=== PATIENT | female | born 1985 | race Caucasian/White ===

== ENCOUNTER → 2016-11-03 | Outpatient (CLI) | payer MEDICAID, OTHER ==
[~2016-11-03] MED LIST: /ESOM40CA; ALBUTEROL INHALATION; ANTIBIOTIC; BIRTH CONTROL PILL; CETI10TA; FERR325T; FLINCHW5 PO; IBUP-1114 PO; MYLI40DR PO; No Historical Meds; OXYC1TAB23 PO; PERC5TAB8; ROBITUSSIN PO; SIMV20TA2; SUDAFED30 PO; TYLENOL325 PO; ZITHROM500 PO
[2016-11-03 10:09] LABS: BASO % 0.6 % (0.0-1.0); EOS # 0.1 K/mm3 (0.0-0.50); EOS % 1.9 % (0.0-3.0); LARGE UNSTAINED CELL # 0.1 K/mm3 (0.0-0.4); LARGE UNSTAINED CELL % 1.5 % (0.0-4.0); LYMPH # 1.9 K/mm3 (1.5-4.5); LYMPH % 25.8 % (24.0-44.0); MEAN CORPUSCULAR HEMOGLOBIN 27.6 pg (27.0-33.0); MEAN CORPUSCULAR HGB CONC 32.2 g/dl (32.0-36.5); MEAN CORPUSCULAR VOLUME 85.7 fl (80.0-96.0); MONO # 0.3 K/mm3 (0.0-0.8); MONO % 4.6 % (0.0-5.0); NEUTROPHILS # 4.5 K/mm3 (1.8-7.7); NEUTROPHILS % 65.5 % (36.0-66.0); PLATELET COUNT, AUTOMATED 326 k/mm3 (150-450); RED CELL DISTRIBUTION WIDTH 13.3 % (11.5-14.5); WHITE BLOOD COUNT 6.8 K/mm3 (4.0-10.0)
[2016-11-03 10:23] LABS: ALBUMIN 3.7 GM/DL (3.2-5.2); ALBUMIN/GLOBULIN RATIO 1.12 (1.00-1.93); ALKALINE PHOSPHATASE 108 U/L (45-117); ALT/SGPT 16 U/L (12-78); ANION GAP 8 MEQ/L (8-16); AST/SGOT 11 U/L (15-37); BILIRUBIN,TOTAL 0.6 MG/DL (0.2-1.0); BLOOD UREA NITROGEN 7 MG/DL (7-18); CALCIUM LEVEL 8.1 MG/DL (8.5-10.1); CARBON DIOXIDE LEVEL 26 MEQ/L (21-32); CHLORIDE LEVEL 106 MEQ/L (98-107); CHOLESTEROL LEVEL 186 MG/DL (<200); CREATININE FOR GFR 0.54 MG/DL (0.55-1.02); FERRITIN 10 NG/ML (8-252); GLOMERULAR FILTRATION RATE > 60.0 (>60); GLUCOSE, FASTING 77 MG/DL (70-105); PERCENT SATURATION 15.2 % (13.2-37.4); POTASSIUM SERUM 3.6 MEQ/L (3.5-5.1); SODIUM LEVEL 140 MEQ/L (136-145); TOTAL IRON BINDING CAPACITY 381 UG/DL (250-450); TRIGLYCERIDES LEVEL 65 MG/DL (<150)
== END ==
LOC: M LAB 09:16
PROVIDERS: ATTEND Nurse Practitioner Family
DX: D64.9 Anemia, unspecified (principal); Z13.29 Encounter for screening for other suspected endocrine disorder; R20.2 Paresthesia of skin; E04.8 Other specified nontoxic goiter; Z13.220 Encounter for screening for lipoid disorders

== ENCOUNTER → 2016-11-06 | Outpatient (CLI) | payer MEDICAID, OTHER ==
--- NOTE | 2016-11-06 13:45 | REP ---
CERVICAL SPINE, THREE VIEWS: HISTORY: Paresthesias. COMPARISON: 09/12/2013. There is no acute fracture or subluxation. The intervertebral discs are normal in height. IMPRESSION: There is no acute fracture or subluxation. Signed by Roscoe Oliver MD 11/06/2016 01:52 P
== END ==
LOC: M RAD 13:14
PROVIDERS: ATTEND Nurse Practitioner Family
DX: R20.2 Paresthesia of skin (principal)

== ENCOUNTER → 2016-12-14 | Outpatient (REF) | payer MEDICAID ==
[2016-12-14 13:55] LABS: THYROID PEROXIDASE ANTIBODY > 1300.0 U/ML (<60.0)
[2016-12-14 14:00] LABS: FREE T4 0.85 NG/DL (0.76-1.46)
== END ==
LOC: M LABDRAW1 13:02
PROVIDERS: ATTEND Nurse Practitioner Family
DX: R79.89 Other specified abnormal findings of blood chemistry (principal)

== ENCOUNTER → 2017-03-03 | Outpatient (REF) | payer OTHER ==
[2017-03-03 21:58] LABS: MICROSCOPIC INDICATED? MAN YES (NO)
[2017-03-03 22:09] LABS: BACTERIA, URINE SMALL AMOUNT; HYALINE CAST, URINE NONE SEEN /lpf (0-1); SQUAMOUS EPITHELIAL CELL URINE MOD AMOUNT /hpf (SMALL AMT)
[2017-03-03 22:10] LABS: MICROSCOPIC EXAM PERFORMED; TRANSITIONAL EPI CELLS, URINE SMALL AMOUNT /hpf
== END ==
LOC: M LAB REF 09:30
PROVIDERS: ATTEND Physician Assistant
DX: R30.0 Dysuria (principal)

== ENCOUNTER → 2017-09-01 | Outpatient (REF) | payer OTHER ==
[2017-09-01 21:55] LABS: APPEARANCE, URINE HAZY (CLEAR); BACTERIA, URINE AUTO NEGATIVE (NEGATIVE); BILIRUBIN, URINE AUTO NEGATIVE (NEGATIVE); BLOOD, URINE BLOOD NEGATIVE (NEGATIVE); COLOR, URINE YELLOW (YELLOW); GLUCOSE, URINE (UA) AUTO NEGATIVE (NEGATIVE); KETONE, URINE AUTO NEGATIVE (NEGATIVE); LEUKOCYTE ESTERASE, URINE AUTO NEGATIVE (NEGATIVE); MUCUS, URINE SMALL (NEGATIVE); NITRITE, URINE AUTO NEGATIVE (NEGATIVE); PROTEIN, URINE AUTO NEGATIVE (NEGATIVE); RBC, URINE AUTO 0 /HPF (0-3); SPECIFIC GRAVITY URINE AUTO 1.019 (1.002-1.035); SQUAMOUS EPITHELIAL CELL UR AU 4 /HPF (0-6); UROBILINOGEN, URINE AUTO 0.2 mg/dL (0.0-2.0); WBC, URINE AUTO 0 /HPF (0-3)
[2017-09-01 23:31] LABS: CHLAMYDIA DNA AMPLIFICATION NEGATIVE (NEGATIVE); GC DNA AMPLIFICATION NEGATIVE (NEGATIVE)
== END ==
LOC: M LAB REF 09:19
DX: N39.0 Urinary tract infection, site not specified (principal)

== ENCOUNTER → 2017-09-08 | Outpatient (CLI) | payer OTHER ==
[2017-09-08 13:52] LABS: BASO # 0.1 10^3/uL (0.0-0.2); BASO % 0.7 % (0.0-1.0); EOS # 0.2 10^3/uL (0.0-0.50); EOS % 2.2 % (0.0-3.0); HEMATOCRIT 34.9 % (36.0-47.0); HEMOGLOBIN 10.6 g/dl (12.0-16.0); IMMATURE GRANULOCYTE % 0.4 % (0-3.0); LYMPH # 1.9 10^3/uL (1.5-4.5); MEAN CORPUSCULAR HEMOGLOBIN 24.2 pg (27.0-33.0); MEAN CORPUSCULAR HGB CONC 30.4 g/dl (32.0-36.5); MEAN CORPUSCULAR VOLUME 79.7 fl (80.0-96.0); MONO # 0.5 10^3/uL (0.0-0.8); MONO % 7.3 % (0.0-5.0); NEUTROPHILS # 4.3 10^3/uL (1.8-7.7); NEUTROPHILS % 62.4 % (36.0-66.0); PLATELET COUNT, AUTOMATED 380 10^3/uL (150-450); RED BLOOD COUNT 4.38 10^6/uL (4.00-5.40); RED CELL DISTRIBUTION WIDTH 15.4 % (11.5-14.5); WHITE BLOOD COUNT 6.8 10^3/uL (4.0-10.0)
[2017-09-08 13:55] LABS: CONTROL LINE HCG INT CTR LINE PRESENT; HCG, SERUM QUALITATIVE NEGATIVE (NEGATIVE)
[2017-09-08 15:50] LABS: CHLAMYDIA DNA AMPLIFICATION NEGATIVE (NEGATIVE); GC DNA AMPLIFICATION NEGATIVE (NEGATIVE)
== END ==
LOC: M SMT 09:29
DX: R10.2 Pelvic and perineal pain (principal)
CPT/HCPCS: 84703

== ENCOUNTER → 2017-09-09 | Outpatient (CLI) | payer OTHER | LOC: M RAD 10:28 | DX: R10.2 Pelvic and perineal pain (principal) | CPT/HCPCS: 76856 ==

== ENCOUNTER → 2018-07-15 | Outpatient (REF) | payer OTHER | LOC: M LAB REF 12:45 | PROVIDERS: ATTEND Physician Assistant Medical | DX: J11.1 Influenza due to unidentified influenza virus with other respiratory manifestations (principal) ==

== ENCOUNTER 2018-12-24 19:33 | Emergency (ER) | payer OTHER ==
[~2018-12-24] VITALS: Ht 160 cm; Wt 69.8 kg
[~2018-12-24 19:33] MED LIST changes: -/ESOM40CA; +NEXI1CAP3
[2018-12-24] MEDS ORDERED: ACETAMINOPHEN TAB 650MG DOSE (2X325MG) PO ONE (20:15)
--- NOTE | 2018-12-24 21:37 | REPVR ---
EXAM: US Duplex Left Lower Extremity Veins, Limited EXAM DATE/TIME: 12/24/2018 8:24 PM CLINICAL HISTORY: 33 years old, female; Pain; Leg, lower; Left; Additional info: Calf pain, positive homans TECHNIQUE: Imaging protocol: Real-time Duplex ultrasound of the Left Lower Extremity with 2-D cohoa scale, color Doppler flow and spectral waveform analysis. Limited exam focused on the left lower extremity veins. COMPARISON: No relevant prior studies available. FINDINGS: Left deep veins: Unremarkable. The common femoral, femoral and popliteal veins are patent without thrombus. Normal compressibility, augmentation response and Doppler waveforms. Left superficial veins: Unremarkable. Saphenofemoral junction is patent without thrombus. Soft tissues: Unremarkable. IMPRESSION: No sonographic evidence of deep vein thrombosis. Electronically signed by: Barber Contreras On 12/24/2018 21:36:49 PM
[2018-12-24 21:56] VITALS: BP 121/64
--- NOTE | 2018-12-25 15:02 | REP ---
LEFT ANKLE, FOUR VIEWS: There is no evidence of an acute fracture, dislocation or intrinsic bone disease. IMPRESSION: No fracture or dislocation. Electronically Signed by Shahab Fraser MD 12/25/2018 04:40 P
--- NOTE | 2018-12-25 15:03 | REP ---
LEFT LOWER LEG, AP AND LATERAL: There is no evidence of an acute fracture, dislocation or intrinsic bone disease. IMPRESSION: No fracture or dislocation. Electronically Signed by Shahab Fraser MD 12/25/2018 04:41 P
--- NOTE | 2018-12-26 07:31 | REP ---
LEFT FOOT, FOUR VIEWS: There is no evidence of an acute fracture, dislocation or intrinsic bone disease. IMPRESSION: No fracture or dislocation. Electronically Signed by Shahab Fraser MD 12/26/2018 08:31 A
== END 2018-12-24 22:18 | disposition home or self-care (01) ==
LOC: M ED 19:33
DX: S93.492A Sprain of other ligament of left ankle, initial encounter (principal); X50.9XXA Other and unspecified overexertion or strenuous movements or postures, initial encounter; Y92.018 Other place in single-family (private) house as the place of occurrence of the external cause; F17.210 Nicotine dependence, cigarettes, uncomplicated

== ENCOUNTER → 2019-08-04 | Outpatient (REF) | payer OTHER ==
[2019-08-04 18:46] LABS: INFLUENZA A AMPLIFICATION NEGATIVE (NEGATIVE); INFLUENZA B AMPLIFICATION NEGATIVE (NEGATIVE)
== END ==
LOC: M LAB REF 10:11
PROVIDERS: ATTEND Physician Assistant
DX: R50.9 Fever, unspecified (principal)

== ENCOUNTER → 2019-10-03 | Outpatient (CLI) | payer OTHER ==
--- NOTE | 2019-10-03 11:47 | REP ---
Clinical: Asthma with exacerbation . Comparison: 06/23/2015 . Technique: PA and lateral. Findings: The mediastinum and cardiac silhouette are normal. The lung lawson are clear and without acute consolidation, effusion, or pneumothorax. The skeletal structures are intact and normal. Impression: 1. No acute cardiopulmonary process. Electronically Signed by Dave Hicks MD 10/03/2019 11:38 A
== END ==
LOC: M WUC 11:25
PROVIDERS: ATTEND Nurse Practitioner Family
DX: J45.21 Mild intermittent asthma with (acute) exacerbation (principal)

== ENCOUNTER → 2019-10-16 | Outpatient (CLI) | payer OTHER ==
--- NOTE | 2019-10-16 18:22 | REP ---
HISTORY: Pain after trauma. There is a fracture of the diaphysis of the proximal phalanx of the fifth digit with some lateral angulation. There is also associated soft tissue swelling. IMPRESSION: Fracture as described above. Lateral angulation. Electronically Signed by Sukumar Ceballos DO 10/17/2019 07:37 A
== END ==
LOC: M WUC 16:29
PROVIDERS: ATTEND Physician Assistant
DX: S92.514A Nondisplaced fracture of proximal phalanx of right lesser toe(s), initial encounter for closed fracture (principal); X58.XXXA Exposure to other specified factors, initial encounter; Y92.89 Other specified places as the place of occurrence of the external cause

== ENCOUNTER → 2019-11-10 | Outpatient (REF) | payer OTHER ==
[2019-11-10 20:57] LABS: CHLAMYDIA DNA AMPLIFICATION NEGATIVE (NEGATIVE); GC DNA AMPLIFICATION NEGATIVE (NEGATIVE)
== END ==
LOC: M SFHCWAGY 16:28
PROVIDERS: ATTEND Nurse Practitioner Women's Health
DX: Z11.3 Encounter for screening for infections with a predominantly sexual mode of transmission (principal)

== ENCOUNTER → 2019-12-11 | Outpatient (REF) | payer OTHER | LOC: M SFHCWAGY 08:10 | PROVIDERS: ATTEND Specialist | DX: Z01.419 Encounter for gynecological examination (general) (routine) without abnormal findings (principal) ==

== ENCOUNTER → 2019-12-29 | Outpatient (REF) | payer OTHER ==
[~2019-12-29] MED LIST changes: +ALBU83IN INH; +ARNU1INH INH; +BACT800T5 PO; +CEFD300C PO; +GABA-845 PO; +NEUR300C PO; +VALA500T5 PO; +VALT1TAB PO; +ZYRTTAB8 PO
== END ==
LOC: M LAB REF 11:58
PROVIDERS: ATTEND Nurse Practitioner Family
DX: J02.9 Acute pharyngitis, unspecified (principal); R50.9 Fever, unspecified
CPT/HCPCS: 87070; U0003

== ENCOUNTER → 2020-01-19 | Outpatient (CLI) | payer OTHER ==
[2020-01-19 11:31] LABS: BASO # 0.1 10^3/uL (0.0-0.2); BASO % 0.8 % (0.0-1.0); EOS # 0.2 10^3/uL (0.0-0.5); EOS % 2.6 % (0.0-3.0); HEMATOCRIT 33.8 % (36.0-47.0); HEMOGLOBIN 9.4 g/dl (12.0-15.5); LYMPH # 1.7 10^3/uL (1.5-5.0); LYMPH % 28.6 % (24.0-44.0); MEAN CORPUSCULAR HEMOGLOBIN 20.7 pg (27.0-33.0); MEAN CORPUSCULAR HGB CONC 27.8 g/dl (32.0-36.5); MEAN CORPUSCULAR VOLUME 74.4 fl (80.0-96.0); MONO # 0.6 10^3/uL (0.0-0.8); MONO % 9.9 % (0.0-5.0); NEUTROPHILS # 3.5 10^3/uL (1.5-8.5); NEUTROPHILS % 57.8 % (36.0-66.0); PLATELET COUNT, AUTOMATED 368 10^3/uL (150-450); RED BLOOD COUNT 4.54 10^6/uL (4.00-5.40); WHITE BLOOD COUNT 6.1 10^3/uL (4.0-10.0)
[2020-01-19 11:39] LABS: ALBUMIN 3.5 GM/DL (3.2-5.2); ALT/SGPT 19 U/L (12-78); BILIRUBIN,TOTAL 0.4 MG/DL (0.2-1.0); BLOOD UREA NITROGEN 9 MG/DL (7-18); CALCIUM LEVEL 8.6 MG/DL (8.5-10.1); CARBON DIOXIDE LEVEL 25 MEQ/L (21-32); CHLORIDE LEVEL 109 MEQ/L (98-107); CHOLESTEROL LEVEL 143 MG/DL (<200); CHOLESTEROL RISK RATIO 2.648 (<5); CREATININE FOR GFR 0.63 MG/DL (0.55-1.30); FREE T4 1.41 NG/DL (0.76-1.46); GLOMERULAR FILTRATION RATE > 60.0 (>60); GLUCOSE, FASTING 86 MG/DL (70-100); HDL CHOLESTEROL 54 MG/DL (>40); LDL CHOLESTEROL 67 MG/DL (<100); NON-HDL-C 89 MG/DL; POTASSIUM SERUM 3.8 MEQ/L (3.5-5.1); SODIUM LEVEL 141 MEQ/L (136-145); THYROID STIMULATING HORMONE 0.005 uIU/ML (0.358-3.740); TOTAL PROTEIN 7.1 GM/DL (6.4-8.2); TRIGLYCERIDES LEVEL 112 MG/DL (<150)
[2020-01-19 11:42] LABS: THYROGLOBULIN ANTIBODY > 500.0 U/ML (<60.0); THYROID PEROXIDASE ANTIBODY > 1300.0 U/ML (<60.0); TOTAL 25(OH) VITAMIN D 28.2 NG/ML (30.0-100.0)
[2020-01-19 11:43] LABS: TOTAL T3 163.7 NG/DL (60.0-181.0)
== END ==
LOC: M WUC 09:16
PROVIDERS: ATTEND Nurse Practitioner Family
DX: Z00.00 Encounter for general adult medical examination without abnormal findings (principal); E66.3 Overweight; J45.30 Mild persistent asthma, uncomplicated; G25.81 Restless legs syndrome; E04.0 Nontoxic diffuse goiter; Z68.26 Body mass index [BMI] 26.0-26.9, adult

== ENCOUNTER 2020-01-27 20:10 | Emergency (ER) | payer OTHER ==
[~2020-01-27] VITALS: Ht 160 cm; Wt 71.4 kg
[~2020-01-27 20:10] MED LIST changes: -ALBU83IN INH; -ARNU1INH INH; -BACT800T5 PO; -CEFD300C PO; -GABA-845 PO; -NEUR300C PO; -VALA500T5 PO; -VALT1TAB PO; -ZYRTTAB8 PO
[2020-01-27] MEDS ORDERED: ZYRTTAB8 PO (20:41)
[2020-01-27] MEDS ORDERED: ARNU1INH INH (20:41)
[2020-01-27] MEDS ORDERED: ALBU83IN INH (20:41)
[2020-01-27] MEDS ORDERED: VALA500T5 PO (20:41)
[2020-01-27] MEDS ORDERED: CEFD300C PO (20:41)
[2020-01-27] MEDS ORDERED: GABA-845 PO (20:41)
[2020-01-27] MEDS ORDERED: valACYclovir HCL 500 MG TAB PO ONE (22:45)
[2020-01-27] MEDS ORDERED: BACTRIM 160MG/800MG DS TAB PO ONE (22:45)
[2020-01-27] MEDS ORDERED: GABAPENTIN 300 MG CAP PO ONE (22:45)
[2020-01-27 23:27] LABS: HEMATOCRIT 31.7 % (36.0-47.0); HEMOGLOBIN 9.1 g/dl (12.0-15.5); MEAN CORPUSCULAR HEMOGLOBIN 20.8 pg (27.0-33.0); MEAN CORPUSCULAR HGB CONC 28.7 g/dl (32.0-36.5); MEAN CORPUSCULAR VOLUME 72.4 fl (80.0-96.0); PLATELET COUNT, AUTOMATED 432 10^3/uL (150-450); RED BLOOD COUNT 4.38 10^6/uL (4.00-5.40); WHITE BLOOD COUNT 9.8 10^3/uL (4.0-10.0)
[2020-01-27 23:59] LABS: ERYTHROCYTE SEDIMENTATION RATE 9 mm/hr (0-20)
[2020-01-28 00:05] LABS: ATYPICAL LYMPH 2 % (0-5); HYPOCHROMASIA 1+; LYMPHOCYTES 42 % (16-44); MICROCYTOSIS 1+; MONOCYTES 4 % (0-5); NEUTROPHILS 52 % (28-66); PLATELET ESTIMATE INCREASED (NORMAL)
[2020-01-28] MEDS ORDERED: NEUR300C PO (00:36)
[2020-01-28] MEDS ORDERED: BACT800T5 PO (00:36)
[2020-01-28] MEDS ORDERED: VALT1TAB PO (00:36)
[2020-01-28 00:52] VITALS: BP 120/82
== END 2020-01-28 00:54 | disposition home or self-care (01) ==
LOC: M ED 20:10
DX: B02.9 Zoster without complications (principal)

== ENCOUNTER → 2020-03-27 | Outpatient (CLI) | payer OTHER ==
[~2020-03-27] MED LIST changes: +ALBU83IN INH; +ARNU1INH INH; +BACT800T5 PO; +CEFD300C PO; +GABA-845 PO; +NEUR300C PO; +VALA500T5 PO; +VALT1TAB PO; +ZYRTTAB8 PO
--- NOTE | 2020-04-10 09:53 | REP ---
THYROID ULTRASOUND CLINICAL: Nontoxic goiter. TECHNIQUE: Real-time ochoa scale and color evaluation using linear and curved array transducer. FINDINGS: The thyroid gland is diffusely heterogeneous and enlarged. The right lobe measures 5.7 x 2.1 x 2.0 cm and includes a 5 x 4 x 5 mm simple cyst at the lower pole. The left lobe measures 5.5 x 1.8 x 1.9 cm without cyst or nodule. The isthmus measures 4 mm in width. Vascularity is relatively symmetric to the bilateral lobes. IMPRESSION: Goiter. Simple cyst in the right lobe. MTDD
== END ==
LOC: M RAD 11:06
PROVIDERS: ATTEND Physician Assistant
DX: E04.1 Nontoxic single thyroid nodule (principal); E06.5 Other chronic thyroiditis

== ENCOUNTER → 2020-04-10 | Outpatient (REF) | payer OTHER | LOC: M WUC 12:18 | PROVIDERS: ATTEND Physician Assistant | DX: N39.0 Urinary tract infection, site not specified (principal) ==

== ENCOUNTER → 2020-04-26 | Outpatient (CLI) | payer OTHER ==
[2020-04-26 09:53] LABS: BASO # 0.1 10^3/uL (0.0-0.2); BASO % 1.3 % (0.0-1.0); EOS # 0.2 10^3/uL (0.0-0.5); HEMOGLOBIN 10.6 g/dl (12.0-15.5); LYMPH # 2.2 10^3/uL (1.5-5.0); LYMPH % 35.4 % (24.0-44.0); MEAN CORPUSCULAR HEMOGLOBIN 23.7 pg (27.0-33.0); MEAN CORPUSCULAR HGB CONC 29.4 g/dl (32.0-36.5); MEAN CORPUSCULAR VOLUME 80.5 fl (80.0-96.0); MONO # 0.5 10^3/uL (0.0-0.8); MONO % 7.1 % (0.0-5.0); NEUTROPHILS # 3.3 10^3/uL (1.5-8.5); NEUTROPHILS % 52.7 % (36.0-66.0); PLATELET COUNT, AUTOMATED 379 10^3/uL (150-450); RED BLOOD COUNT 4.47 10^6/uL (4.00-5.40); WHITE BLOOD COUNT 6.3 10^3/uL (4.0-10.0)
[2020-04-26 10:25] LABS: FREE T4 0.77 NG/DL (0.76-1.46); THYROID STIMULATING HORMONE 2.97 uIU/ML (0.358-3.740); TOTAL T3 98.8 NG/DL (60.0-181.0)
== END ==
LOC: M LAB 09:07
PROVIDERS: ATTEND Physician Assistant
DX: E61.1 Iron deficiency (principal); E04.0 Nontoxic diffuse goiter; E06.5 Other chronic thyroiditis

== ENCOUNTER → 2020-05-03 | Outpatient (REF) | payer OTHER, MEDICAID | LOC: M LAB REF 16:47 | PROVIDERS: ATTEND Physician Assistant | DX: R10.33 Periumbilical pain (principal) ==

== ENCOUNTER 2020-08-21 09:22 | Emergency (ER) | payer MEDICAID, OTHER ==
[~2020-08-21] VITALS: Ht 160 cm; Wt 68.5 kg
[2020-08-21] MEDS ORDERED: NS 1,000 ML IV ONE (10:00)
[2020-08-21] MEDS ORDERED: MORPHINE 4 MG/ML 1ML VIAL/SYRINGE (J2270) IV ONE (10:00)
[2020-08-21] MEDS ORDERED: ONDANSETRON 4MG/2ML VIAL IV ONE (10:00)
[2020-08-21 10:28] LABS: BASO # 0.1 10^3/uL (0.0-0.2); BASO % 1.3 % (0.0-1.0); EOS # 0.1 10^3/uL (0.0-0.5); EOS % 1.8 % (0.0-3.0); HEMATOCRIT 35.8 % (36.0-47.0); LYMPH # 1.7 10^3/uL (1.5-5.0); MEAN CORPUSCULAR HEMOGLOBIN 24.6 pg (27.0-33.0); MEAN CORPUSCULAR HGB CONC 30.7 g/dl (32.0-36.5); MEAN CORPUSCULAR VOLUME 79.9 fl (80.0-96.0); MONO # 0.5 10^3/uL (0.0-0.8); MONO % 6.7 % (0.0-5.0); NEUTROPHILS # 5.3 10^3/uL (1.5-8.5); NEUTROPHILS % 67.7 % (36.0-66.0); PLATELET COUNT, AUTOMATED 436 10^3/uL (150-450); RED BLOOD COUNT 4.48 10^6/uL (4.00-5.40); WHITE BLOOD COUNT 7.9 10^3/uL (4.0-10.0)
[2020-08-21 10:41] LABS: ALT/SGPT 25 U/L (12-78); BILIRUBIN,DIRECT < 0.1 MG/DL (0.0-0.2); BILIRUBIN,TOTAL 0.3 MG/DL (0.2-1.0); BLOOD UREA NITROGEN 9 MG/DL (7-18); CALCIUM LEVEL 8.5 MG/DL (8.5-10.1); CARBON DIOXIDE LEVEL 23 MEQ/L (21-32); CHLORIDE LEVEL 108 MEQ/L (98-107); CREATININE FOR GFR 0.64 MG/DL (0.55-1.30); GLOMERULAR FILTRATION RATE > 60.0 (>60); GLUCOSE, FASTING 91 MG/DL (70-100); LIPASE 877 U/L (73-393); POTASSIUM SERUM 3.7 MEQ/L (3.5-5.1); SODIUM LEVEL 139 MEQ/L (136-145)
--- NOTE | 2020-08-21 10:41 | REP ---
INDICATION: ruq pain COMPARISON: None. TECHNIQUE: Real time ochoa scale ultrasound examination using curved array transducer. FINDINGS: Liver and pancreas are normal in contour, size, and echogenicity without focal pancreatic or hepatic lesions identified. Liver measures 16 cm in craniocaudal length. The gallbladder is normal and without gallstones, wall thickening, or pericholecystic fluid. No biliary ductal dilatation is appreciated and the common bile duct measures 4.4 mm diameter. Right kidney is normal in reniform shape without hydronephrosis and measures 10.3 x 4.5 x 3.6 cm. No ascites in the visualized right upper quadrant. IMPRESSION: Normal limited right upper quadrant ultrasound <Electronically signed by Dave Hicks > 08/21/20 1038
[2020-08-21] MEDS ORDERED: METOCLOPRAMIDE INJ 10MG/2ML VIAL (J2765 PER 1) IV ONE (11:15)
[2020-08-21] MEDS ORDERED: ISOVUE-370 76% 100ML VIAL As Ordered ONE (11:26)
--- NOTE | 2020-08-21 12:05 | REP ---
INDICATION: pancreatitis COMPARISON: 06/23/2015. TECHNIQUE: CT Scan of the abdomen and pelvis was performed with intravenous administration of 100 cc of Isovue 370, without oral contrast. Sagittal and coronal reconstruction images are performed. FINDINGS: Lung bases: Unremarkable. Liver: Normal Gallbladder: Unremarkable. Spleen: Normal. Adrenals: Normal. Pancreas: Normal. Kidneys: Normal. Small and large bowel: Unremarkable. Free fluid: There is trace free fluid in the pelvis. Abdominal aorta: No aneurysm or dissection. Adenopathy: None. Appendix: There has been a prior appendectomy. Osseous structures: There are few stable benign sclerotic bone lesions in the pelvic bones.. Pelvis: No mass. There is small amount of air in the urinary bladder likely from recent catheterization. Otuw-hf-zuntmdve fluid is seen in the endometrial canal. IMPRESSION: Trace free fluid in the pelvis may be physiologic. Small amount of air in the urinary bladder likely from recent catheterization. Mild to moderate fluid in the endometrial canal. No pancreatic abnormality is seen. However, this does not exclude a diagnosis of pancreatitis. <Electronically signed by Shahab Fraser > 08/21/20 [id number]
[2020-08-21] MEDS ORDERED: ONDA4TAB6 PO (13:16)
[2020-08-21] MEDS ORDERED: HYDR-3713 PO (13:16)
[2020-08-21 13:23] VITALS: BP 115/73
== END 2020-08-21 13:30 | disposition home or self-care (01) ==
LOC: M ED 09:22
DX: K85.90 Acute pancreatitis without necrosis or infection, unspecified (principal); R11.0 Nausea; F17.200 Nicotine dependence, unspecified, uncomplicated; J45.909 Unspecified asthma, uncomplicated; Z79.51 Long term (current) use of inhaled steroids; Z79.899 Other long term (current) drug therapy
CPT/HCPCS: 36415; 74177; 76705; 80048; 80076; 81001; 83690; 85025; 96361; 96374; 96375; 99284; J2270; J2405; J2765; Q9967

== ENCOUNTER → 2020-08-27 | Outpatient (REF) | payer OTHER, MEDICAID ==
[~2020-08-27] MED LIST changes: +CETI-14 PO; +HYDR-3713 PO; +ONDA4TAB6 PO; +ONDA8TAB8 PO
[2020-08-27 16:50] LABS: ALBUMIN 4.1 GM/DL (3.2-5.2); ALT/SGPT 21 U/L (12-78); AMYLASE 52 U/L (25-115); BILIRUBIN,TOTAL 0.4 MG/DL (0.2-1.0); BLOOD UREA NITROGEN 6 MG/DL (7-18); CALCIUM LEVEL 9.5 MG/DL (8.5-10.1); CARBON DIOXIDE LEVEL 28 MEQ/L (21-32); CHLORIDE LEVEL 106 MEQ/L (98-107); CREATININE FOR GFR 0.63 MG/DL (0.55-1.30); GLOMERULAR FILTRATION RATE > 60.0 (>60); GLUCOSE, FASTING 70 MG/DL (70-100); LIPASE 59 U/L (73-393); POTASSIUM SERUM 4.5 MEQ/L (3.5-5.1); SODIUM LEVEL 140 MEQ/L (136-145); TOTAL PROTEIN 7.9 GM/DL (6.4-8.2)
[2020-08-27 17:26] LABS: CA19-9 TUMOR MARKER,CARBOHYDRA 10.8 U/ML (<35.0)
== END ==
LOC: M LAB REF 15:44
PROVIDERS: ATTEND Pediatrics
DX: R74.8 Abnormal levels of other serum enzymes (principal)

== ENCOUNTER 2020-08-29 09:48 | Inpatient (IN) | payer MEDICAID, OTHER ==
[~2020-08-29] VITALS: Ht 160 cm; Wt 66.5 kg
[~2020-08-29 09:48] MED LIST changes: -CETI-14 PO; -ONDA8TAB8 PO
[2020-08-29] MEDS ORDERED: ONDA8TAB8 PO (09:59)
[2020-08-29] MEDS ORDERED: NS 500 ML IV ONE (10:15)
[2020-08-29] MEDS: GI COCKTAIL 50ML BTL(HYOSCYAMINE/MAALOX/LIDOCAINE VISCOUS)(1:3:1) PO ONE ×2 (10:29→11:07)
[2020-08-29 10:33] LABS: BASO # 0.1 10^3/uL (0.0-0.2); BASO % 1.1 % (0.0-1.0); EOS # 0.1 10^3/uL (0.0-0.5); EOS % 1.4 % (0.0-3.0); HEMATOCRIT 37.9 % (36.0-47.0); HEMOGLOBIN 11.3 g/dl (12.0-15.5); LYMPH # 1.8 10^3/uL (1.5-5.0); LYMPH % 27.1 % (24.0-44.0); MEAN CORPUSCULAR HEMOGLOBIN 24.3 pg (27.0-33.0); MEAN CORPUSCULAR HGB CONC 29.8 g/dl (32.0-36.5); MEAN CORPUSCULAR VOLUME 81.5 fl (80.0-96.0); MONO # 0.5 10^3/uL (0.0-0.8); MONO % 7.3 % (2.0-8.0); NEUTROPHILS # 4.1 10^3/uL (1.5-8.5); NEUTROPHILS % 62.2 % (36.0-66.0); PLATELET COUNT, AUTOMATED 423 10^3/uL (150-450); RED BLOOD COUNT 4.65 10^6/uL (4.00-5.40); WHITE BLOOD COUNT 6.6 10^3/uL (4.0-10.0)
[2020-08-29] MEDS ORDERED: ONDANSETRON 4MG/2ML VIAL As Ordered ONE ×2 (10:33→20:41)
[2020-08-29 10:44] LABS: INR 1.11; PROTHROMBIN TIME 14.5 SECONDS (12.5-14.3)
--- OUTSIDE RECORDS SUMMARY | 2020-08-29 10:44 | CCD ---
Author Organization Unknown Address [address] [place] [address] Phone [phone] Care Team Providers Care Ordnance Mechanic Name Role Phone Filiberto Estevez Unavailable Unavailable Allergies Code Code System Name Reaction Severity Status Onset NKDA Medications Name Status Start Date Stop Date albuterol sulfate HFA 90 mcg/actuation a erosol inhaler INHALE TWO PUFFS BY MOUTH EVERY 4 HOURS NEEDED FOR WHEEZING OR FOR SHORTNESS OF BREATH Active Not available amoxicillin 875 mg-potassium clavulanate 125 mg tablet Completed 05/03/2020 Arnuity Ellipta 100 mcg/actuation powder for inhalation INHALE ONE PUFF BY MOUTH EVERY DAY Active Not available azithromycin 250 mg tablet Completed 05/03 benzonatate 200 mg capsule Completed 05/03 cefdinir 300 mg capsule Completed 05/03/20 cetirizine 10 mg tablet TAKE ONE TABLET BY MOUTH EVERY DAY Active Not available DOK 100 mg capsule 1 TABLET PO PRN Active Not available ferrous gluconate 324 mg (38 mg iron) tablet Active Not available gabapentin 300 mg capsule Completed 2019 gabapentin 400 mg capsule TAKE ONE CAPSULE BY MOUTH TWICE A DAY NEEDED Active Not available hydrocodone 5 mg-acetaminophen 325 mg ta blet TAKE ONE TABLET BY MOUTH THREE TIMES A DAY NEEDED FOR PAIN MAXIMUM DAILY DOSE THREE TABLETS Active Not available metronidazole 500 mg tablet Completed 04/12 nitrofurantoin monohydrate/macrocrystals 100 mg capsule Complete d 05/03/2020 omeprazole 20 mg capsule,delayed release TAKE ONE CAPSULE BY MOUTH EVERY MORNING ON AN EMPTY STOMACH WITH WATER Completed 08/27/2020 ondansetron 4 mg disintegrating tablet DISSOLVE ONE TABLET ON TONGUE EVERY 6 TO 8 HOURS NEEDED FOR NAUSEA AND VOMITING Completed 08/27/2020 [address]dansetron [address] 1 tablet 3 times a day by translingual route. Active Not available oseltamivir 75 mg capsule TAKE ONE CAPSULE BY MOUTH TWICE A DAY FOR 5 DAYS Completed 08/27/2020 phenazopyridine 200 mg tablet Completed prednisone 10 mg tablet Completed 05/03/20 20 prednisone 20 mg tablet TAKE ONE TABLET BY MOUTH THREE TIMES A DAY FOR 5 DAYS Completed 08/27/2020 sulfamethoxazole 800 mg-trimethoprim 160 mg tablet Completed 05/03/2020 valacyclovir 1 gram tablet Completed 05/03 Problems Name Status Onset Date Source Body Mass Index 25-29 - Overweight Active 10/22/2016 History Anemia Active 10/22/2016 History Generalized Anxiety Disorder Active 10/22/2016 His tory Restless Legs Active 10/22/2016 History Low Back Pain Active 10/22/2016 History Tingling of Skin Active 10/22/2016 History Neck Pain Active 11/10/2016 History Clinical Finding Unknown 11/10/2016 History Finding of Neck Region Active 11/10/2016 History Diffuse Goiter Active 12/15/2016 History Chronic Thyroiditis Active 12/15/2016 History Simple Goiter Active 12/15/2016 History Thyroiditis Active 12/15/2016 History Overweight Active 01/18/2020 History Allergic Rhinitis Active 01/18/2020 History Uncomplicated Mild Persistent Asthma Active 01/18/[address] Concept Unknown 01/18/2020 History Asthma Active 01/18/2020 History Iron Deficiency Active 02/23/2020 History Gastroesophageal Reflux Disease without Esophagitis Active 02/23/2020 History Finding of Esophagus Active 02/23/2020 History Procedures Date Name Performed by Remove Tonsils and Adenoids Information not available Ligation of Fallopian Tube Information n ot available Delivery Information not avai lable 08/27/2020 MRI, Abdomen, W/wo Contrast Information not available Notes: section x 6, tubal ligat ion 05/2016, Tonsillectomy, appendix Results Lab Results Date Name Specimen Result Interpretation Description Value Range Status Address 08/21/2020 UA W/ Reflex to Culture Normal Appearance, Urine Rfx clear clear Final [facility]: [address] [facility] Normal Color, Urine Rfx yellow yellow [facility]: [address] [facility] Normal pH,urine Rfx 5.0 units 5.0-9.0 units [facility]: [address] [facility] Normal Specific [place] Ur Auto Rfx 1.021 1.002-1.035 [facility]: [address] [facility] Normal Protein, Urine Auto Rfx negative mg/ dL negative mg/dL [facility]: [address] [facility] Normal Glucose, Urine (UA) Auto Rfx n egative mg/dL negative mg/dL [facility]: [address] [facility] Normal Ketone, Urine Auto Rfx negative mg/d L negative mg/dL [facility]: [address] [facility] Normal Urobilinogen, Urine Auto Rfx 0.2 mg/ dL 0.0-2.0 mg/dL [facility]: [address] [facility] Normal Bilirubin, Urine Auto Rfx negative n egative [facility]: [address] [facility] Normal Nitrite, Urine Auto Rfx negative neg ative [facility]: [address] [facility] Normal Leukocyte Esterase Ur Auto Rfx negat ambrocio negative [facility]: [address] [facility] Normal Blood, Urine Blood Rfx negative nega tive [facility]: [address] [facility] Normal WBC, Urine Auto Rfx 1 /hpf 0-3 /hpf [facility]: [address] [facility] Normal RBC, Urine Auto Rfx 1 /hpf 0-3 /hpf [facility]: [address] [facility] Normal Bacteria, Urine Auto Rfx negative ne gative [facility]: [address] [facility] Normal Squam Epithelial Cell Ur Aurfx 1 /hp f 0-6 /hpf [facility]: [address] [facility] Normal Mucus, Urine Rfx small negative Fin al [facility]: [address] [facility] Normal Hyaline Cast, Urine Auto Rfx 0 /lpf 0-1 /lpf [facility]: [address] [facility] 08/21/2020 CBC W/ Auto Diff Normal White Blood Count 7.9 10 4.0-10.0 10 [facility]: [address] [facility] Normal Red Blood Count 4.48 10 4.00-5.40 10 [facility]: [address] [facility] Low Hemoglobin 11.0 g/dL 12.0-15.5 g/dL [facility]: [address] [place] [address] Low Hematocrit 35.8 % 36.0-47.0 % [facility]: [address] [place] [address] Low Mean Corpuscular Volume 79.9 fL 80.0 -96.0 fL [facility]: [address] [place] [address] Low Mean Corpuscular Hemoglobin 24.6 pg 27.0-33.0 pg [facility]: [address] [place] [address] Low Mean Corpuscular HGB Conc 30.7 g/dL 32.0-36.5 g/dL [facility]: [address] [place] [address] High Red Cell Distribution Width 16.2 % 1 1.5-14.5 % [facility]: [address] [place] [address] Normal Platelet Count, Automated 436 10 150 -450 10 [facility]: 0 [facility] High Neutrophils % 67.7 % 36.0-66.0 % [facility]: [address] [facility] Low Lymph % 22.0 % 24.0-44.0 % [facility]: 0 [facility] High [place] % 6.7 % 0.0-5.0 % [facility]: 0 [facility] Normal Eos % 1.8 % 0.0-3.0 % [facility]: 0 [facility] High Baso % 1.3 % 0.0-1.0 % [facility]: [address] [facility] Normal Immature Granulocyte % 0.5 % 0-3.0 % [facility]: 0 [facility] Normal Nucleated Red Blood Cell % 0.0 % 0- 0 % [facility]: 0 [facility] Normal Neutrophils # 5.3 10 1.5-8.5 10 [facility]: 0 [facility] Normal Lymph # 1.7 10 1.5-5.0 10 [facility]: [address] [facility] Normal [place] # 0.5 10 0.0-0.8 10 [facility]: [address] [facility] Normal Eos # 0.1 10 0.0-0.5 10 [facility]: [address] [facility] Normal Baso # 0.1 10 0.0-0.2 10 [facility]: [address] [facility] 08/21/2020 Hepatic Function Panel, Serum Normal AST/SG OT 17 U/L 7-37 U/L [facility]: [address] [facility] Normal ALT/SGPT 25 U/L 12-78 U/L [facility]: [address] [facility] Normal Alkaline Phosphatase 80 U/L 45-117 U /L [facility]: [address] [facility] Normal Bilirubin,total 0.3 mg/dL 0.2-1.0 mg /dL [facility]: [address] [facility] Normal Bilirubin,direct < 0.1 mg/dL 0.0-0.2 mg/dL [facility]: 0 [facility] Normal Total Protein 8.0 gm/dL 6.4-8.2 gm/d L [facility]: 0 [facility] Normal Albumin 4.0 gm/dL 3.2-5.2 gm/dL Mary Grace l [facility]: 0 [facility] Low Albumin/globulin Ratio 1.0 1.2-2. 2 [facility]: [address] [facility] 08/21/2020 BMP, Serum or Plasma Normal Glucose, Fastin g 91 mg/dL 70-100 mg/dL [facility]: 83 0 [facility] Normal Blood Urea Nitrogen 9 mg/dL 7-18 mg/ dL [facility]: 0 [facility] Normal Creatinine for GFR 0.64 mg/dL 0.55-1 .30 mg/dL [facility]: [address] [place] [address] Normal Glomerular Filtration Rate > 60.0 >6 0 Final [facility]: [address] [place] [address] Normal Sodium Level 139 mEq/L 136-145 mEq/L [facility]: [address] [place] [address] Normal Potassium Serum 3.7 mEq/L 3.5-5.1 mE q/L Final [facility]: [address] [place] [address] High Chloride Level 108 mEq/L 98-107 mEq/ L Final [facility]: [address] [place] [address] Normal Carbon Dioxide Level 23 mEq/L 21-32 mEq/L Final [facility]: [address] [place] [address] Normal Anion Gap 8 mEq/L 8-16 mEq/L [facility]: [address] [place] [address] Normal Calcium Level 8.5 mg/dL 8.5-10.1 mg/ dL [facility]: [address] [place] [address] 08/21/2020 Lipase, Serum or Plasma High Lipase 877 U/L 73-393 U/L [facility]: [address] [place] [address] 08/05/2020 SARS CoV 2 RdRp Gene, QL Probe, Respiratory Spec imen Nasopharyngeal Normal Sars-cov-2 negative negative Final [facility]: [address] [place] [address] 05/03/2020 Culture, Urine URINE,CLEAN CATCH No observation recorded. [facility]: [address] [place] [address] Past Encounters 08/27/2020 High Lipase Level in Serum Aracelis Araujo MD: [address] [facility] [address] [address], Ph. 08/05/2020 Exposure to SARS-CoV-2 Gregg Lucio MD: [address] [place] [phone], Ph. 05/03/2020 Anemia; Iron Deficiency; Suprapubic Pain; Diffuse Goiter; Uncomplicated Mild Persistent Asthma Filiberto Estevez, [facility]: [address] [facility] [address] [address], Ph. Social History Tobacco Smoking Status Light Tobacco Smoker (1 PPW) Vaccine List Vaccine Type influenza, seasonal, injectable 04/20/2016 IPV 03/23/2016 pneumococcal polysaccharide PPV23 03/23/2016 Tdap 04/20/2016 Plan of Care Patient Instructions Continue current iron supplement, slight improvement but remains anemic. Referral to hematology for possible infusions. Thyroid labs normal, no record of recent ultrasound. Will notify patient of results when available. Reminders Provider Appointments None recorded. Lab None recorded. Referral None recorded. Procedures None recorded. Surgeries None recorded. Imaging None recorded. Vitals 08/27/2020 10:00AM ESTABLISHED [id number] Height Weight BMI Blood Pressure 65 in 147 lbs 24.5 kg/m2 124/77 mm[Hg] 05/03/2020 10:10AM ESTABLISHED [id number] Height Weight BMI Blood Pressure 65 in 156 lbs 16 oz 26.1 kg/m2 117/85 mm[Hg] 02/23/2020 Height Weight BMI Blood Pressure 65 in 154 lbs 6.08 oz 25.78 kg/m2 119/78 mm[H g] 01/18/2020 Height Weight BMI Blood Pressure 65 in 157 lbs 6.08 oz 26.28 kg/m2 129/78 mm[H g]
[2020-08-29] MEDS ORDERED: ONDANSETRON 4MG/2ML VIAL IV ONE (10:45)
--- OUTSIDE RECORDS SUMMARY | 2020-08-29 10:45 | CCD | Continuity of Care Document ---
Author Author Akilah MASSEY ND Organization Unknown Address [address] [place] [id number] Phone [phone] Care Team Providers Care Anthropologist Name Role Phone [facility] Adult Primary Care AUTM [phone] Ravindra Reyes MD AUTM [phone] [facility] Orth AUTM [phone] [facility] AUTM [phone] Problems Description No Information Available Social History Type Date Description Comments Sex Unknown ETOH Use Occasionally consumes alcohol Tobacco Use Start: Unknown Light tobacco smoker (10 or fewe r cigarettes/day) Smoking Status Reviewed: 07/10/20 Light tobacco smoker (10 or fewer cigarettes/day) Allergies, Adverse Reactions, Alerts Description No Known Drug Allergies Medications Active Medications SIG Qnty Indications Ordering Provide r Date Prednisone 20mg Tablets 1 tabs three x daily for 5 days 15tabs J45.901 Pedrito Swan JR., M.D. Zyrtec Allergy 10mg Capsules 1 tab by mouth every day as needed for allergy symptoms U nknown Gabapentin 400mg Capsules Unknown Arnuity Ellipta 100mcg/Act Aerosol Unknown Iron (Ferrous Sulfate) 325(65Fe) mg Tablets Unknown History Medications Oseltamivir Phosphate 75mg Capsule s one capsule twice a day by mouth x5 days 10caps J10.89 Pedrito Swan JR., M.D. 06/05/2020 - 06/10/2020 Macrobid 100mg Capsules 1 cap by mouth twice a day for 5 days with food 10caps N39.0 Pedrito elliott JR., M.D. 04/10/2020 - 04/15/2020 Pyridium 200mg Tablets 1 tab by mouth three times a day after meals for 2 days 6tabs N39.0 Pedrito Swan JR., M.D. 04/10/2020 - 04/12/2020 Valacyclovir HCL 1gm Tablets 1 tab bid x7 days 14tabs B02.9 Pedrito Swan JR., M.D. - 02/02/2020 Cefdinir 300mg Capsules 1 tab by mouth twice a day for 10 days 20caps H65.01 Pedrito Swan JR., M.D. 01/26/2020 - 02/05/2020 Immunizations Description No Information Available Vital Signs Date Vital Result Comment 07/10/2020 10:53am Heart Rate 66 /min Respiratory Rate 18 /min O2 % BldC Oximetry 98 % Body Temperature 98.2 F Weight 150.00 lb Height 63 inches 5'3" BMI (Body Mass Index) 26.6 kg/m2 Pain Level 5 06/05/2020 1:29pm BP Systolic 125 mmHg BP Diastolic 65 mmHg Heart Rate 57 /min Respiratory Rate 20 /min O2 % BldC Oximetry 98 % Body Temperature 97.8 F Weight 150.00 lb Height 63 inches 5'3" BMI (Body Mass Index) 26.6 kg/m2 Pain Level 5 Results Test Acquired Date Facility Test Result H/L Range Note Laboratory test finding 04/10/2020 [place] [address] [phone] Urine Culture FULL REPORT IN L <SEE NOTE> Normal 1, 2 1 FULL REPORT IN LAB NOTES (eC W and [facility]). ORGANISM 1: ESCHERICHIA COLI COLONY COUNT >100,000 ORGANISM 1: ESCHERICHIA COLI ESCHERICHIA COLI: REACTION TRIMETHOPRIM/SULFAMETHOXAZOLE IV 160mg TMP & 800mg SMXq6h <=20 S TRIMETHOPRIM/SULFAMETHOXAZOLE PO Bactrim DS Bid <=20 S AMPICILLIN IV 500mg q6h >=32 R AMPICILLIN PO 500mg q6h fasting >=32 R GENTAMICIN IV 80mg q8h <=1 S NITROFURANTOIN PO 100mg BID <=16 S CEFAZOLIN IV 1gm q8h >=64 R LEVOFLOXACIN IV 500mg qd >=8 R LEVOFLOXACIN PO 250mg qd >=8 R LEVOFLOXACIN PO 500mg qd >=8 R TOBRAMYCIN IV 80mg q8h <=1 S CEFTRIAXONE IV 1gm q24h <=1 S CEFTAZIDIME IV 1gm q8h <=1 S AMPICILLIN/SULBACTAM IV 1.5g q6h >=32 R PIPERACILLIN/TAZOBACTAM IV 2.25 gm q6h 64 I AZTREONAM IV 1gm q8h <=1 S ERTAPENEM IV 1gm qd <=0.5 S MEROPENEM IV 1 gm q8h <=0.25 S MEROPENEM IV 500 mg q8h <=0.25 S TIGECYCLINE IV 50mg q12h <=0.5 S CEFEPIME IV 1 gm q12h <=1 S CEFEPIME IV 2 gm q12h <=1 S EXTD BRD SPCTRM BETA LACTAMASE IV NEGATIVE FOR ESBL 2 04/14/20 ([facility] Apr 14) 01:06 Gabbie GUTIÉRREZ macrobid = s Procedures Date Code Description Status 07/10/2020 72250 Pressurized/Non-Pres surized Inhalation Treatment,Acute Obstructio Completed Medical Devices Description No Information Available Encounters Type Date Location Provider Dx Diagnosis Office Visit 07/10/2020 10:00a Main Office ZACH Forman J06.9 Acute upper respiratory infection, unspecified J45.901 Unspecified asthma with (acu te) exacerbation Z20.828 Contact w and exposure to ot h viral communicable diseases Office Visit 06/05/2020 3:00p Main Office Shahida Gutiérrez NP J10. 89 Influenza due to oth ident influenza virus w oth manifest Z20.828 Contact w and exposure to ot h viral communicable diseases Office Visit 04/10/2020 10:15a Main Office Too Buck N3 9.0 Urinary tract infection, site not specified Office Visit 01/26/2020 12:30p Main Office Shahida Gutiérrez NP H65. 01 Acute serous otitis media, right ear B02.9 Zoster without complications Assessments Date Code Description Provider 07/10/2020 J06.9 Acute upper respiratory infectio n, unspecified ZACH Forman 07/10/2020 J45.901 Unspecified asthma with (acute) exacerbation ZACH Forman 07/10/2020 Z20.828 Contact with and (root spected) exposure to other viral communicable diseases ZACH Forman 06/05/2020 J10.89 Influenza due to oth er identified influenza virus with other manifestations Shahida Gutiérrez NP 06/05/2020 Z20.828 Contact with and (root spected) exposure to other viral communicable diseases Shahida Gutiérrez NP 04/10/2020 N39.0 Urinary tract infection, site no t specified Tejinder Ramírez, P.A. 01/26/2020 H65.01 Acute serous otitis media, right ear Shahida Gutiérrez NP 01/26/2020 B02.9 Zoster without complications Adeline Gutiérrez NP Plan of Treatment No Information Available Functional Status Description No Information Available Mental Status Description No Information Available Referrals Description No Information Available
--- OUTSIDE RECORDS SUMMARY | 2020-08-29 10:45 | CCD | Continuity of Care Document ---
Author Author Akilah VASQUEZ BLURB WRITER Organization Unknown Address [address] [place] [address] Phone [phone] Care Team Providers Care Financial Intern Name Role Phone [facility] Adult Primary Care AUTM [phone] Ravindra Reyes MD AUTM [phone] [facility] Orth AUTM [phone] [facility] AUTM [phone] Problems Description No Information Available Social History Type Date Description Comments Sex Unknown ETOH Use Occasionally consumes alcohol Tobacco Use Start: Unknown End: Unknown Patient is a former smoker and vaper Smoking Status Reviewed: 06/05/20 Patient is a former smoker an d vaper Allergies, Adverse Reactions, Alerts Description No Known Drug Allergies Medications Active Medications SIG Qnty Indications Ordering Provide r Date Oseltamivir Phosphate 75mg Capsule s one capsule twice a day by mouth x5 days 10caps J10.89 Pedrito Swan JR., M.D. 06/05/2020 Zyrtec Allergy 10mg Capsules 1 tab by mouth every day as needed for allergy symptoms U nknown Gabapentin 400mg Capsules Unknown Arnuity Ellipta 100mcg/Act Aerosol Unknown Iron (Ferrous Sulfate) 325(65Fe) mg Tablets Unknown History Medications Macrobid 100mg Capsules 1 cap by mouth [...] Pedrito Swan JR., M.D. 01/26/2020 - 02/05/2020 Cefdinir 300mg Capsules 1 tab by mouth twice a day for 10 days 20caps J02.9 Pedrito Swan JR., M.D. 12/29/2019 - 01/08/2020 Immunizations Description No Information Available Vital Signs Date Vital Result Comment 06/05/2020 1:29pm BP Systolic 125 mmHg BP Diastolic 65 mmHg Heart Rate 57 /min Respiratory Rate 20 /min O2 % BldC Oximetry 98 % Body Temperature 97.8 F Weight 150.00 lb Height 63 inches 5'3" BMI (Body Mass Index) 26.6 kg/m2 Pain Level 5 04/10/2020 10:14am BP Systolic 113 mmHg BP Diastolic 81 mmHg Heart Rate 78 /min O2 % BldC Oximetry 98 % Body Temperature 98.6 F Weight 152.00 lb Height 63 inches 5'3" BMI (Body Mass Index) 26.9 kg/m2 Pain Level 6 Results Test Acquired Date Facility Test Result H/L Range Note Laboratory test finding 04/10/[address] [id number] [phone] Urine Culture FULL REPORT IN L <SEE NOTE> Normal 1, 2 Laboratory test finding 12/29/[address] [address] [phone] Coronavirus 2019 Nasopharygeal This test was de <SEE N OTE> 3 Laboratory test finding 12/29/[address] [address] [phone] Throat Culture FULL REPORT IN L <SEE NOTE> Normal 4, 5 1 FULL REPORT IN LAB NOTES (eC [...] LACTAMASE IV NEGATIVE FOR ESBL 2 04/14/20 (Sun Oct 4) 01:06 P M SHAHIDA VASQUEZ macrobid = s 3 This test was developed and its performance characteristics determined by [facility]. This test has not been FDA cleared or approved. This test has been authorized by FDA under an Emergency Use Authorization (EUA). This test is only authorized for the duration of time the declaration that circumstances exist justifying the authorization of the emergency use of in vitro diagnostic tests for detection of SARS-CoV-2 virus and/or diagnosis of COVID-19 infection under section 564(b)(1) of the Act, 21 U.S.C. 360bbb-3(b)(1), unless the authorization is terminated or revoked sooner. When diagnostic testing is negative, the possibility of a false negative result should be considered in the context of a patient's recent exposures and the presence of clinical signs and symptoms consistent with COVID-19. An individual without symptoms of COVID-19 and who is not shedding SARS-CoV-2 virus would expect to have a negative (not detected) result in this assay. Performed at: [facility] [id number] Pit Crew Support Worker: Rayne Lieberman MD, Phone: [phone] Not Detected 4 Rx Cefdinir 5 FULL REPORT IN LAB NOTES (eC W and [facility]). NORMAL LEATHA PRESENT Procedures Description No Information Available Medical Devices Description No Information Available Encounters Type Date Location Provider Dx Diagnosis Office Visit 06/05/2020 3:00p Main Office Shahida Vasquez NP J10. 89 Influenza due to oth ident influenza virus w oth manifest Z20.828 Contact w and exposure to ot h viral communicable diseases Office Visit 04/10/2020 10:15a Main Office Tejinder Ramírez, P.A. N3 9.0 Urinary tract infection, site not specified Office Visit 01/26/2020 12:30p Main Office Shahida Vasquez NP H65. 01 Acute serous otitis media, right ear B02.9 Zoster without complications Office Visit 12/29/2019 9:50a Main Office Shahida Vasquez NP J02. 9 Acute pharyngitis, unspecified R50.9 Fever, unspecified R19.7 Diarrhea, unspecified Assessments Date Code Description Provider 06/05/2020 J10.89 Influenza due to oth er identified influenza virus with other manifestations Shahida Vasquez NP 06/05/2020 Z20.828 Contact with and (root spected) exposure to other viral communicable diseases Shahida Vasquez, CALI 04/10/2020 N39.0 Urinary tract infection, site no t specified Tejinder Ramírez, P.A. 01/26/2020 H65.01 Acute serous otitis media, right ear Shahida Vasquez NP 01/26/2020 B02.9 Zoster without complications Adeline Vasquez, BLURB WRITER 12/29/2019 J02.9 Acute pharyngitis, unspecified S sanjiv Vasquez, BLURB WRITER 12/29/2019 R50.9 Fever, unspecified Shahida owen, BLURB WRITER 12/29/2019 R19.7 Diarrhea, unspecified Shahida lamar NP Plan of Treatment 06/05/2020 - Shahida Vasquez NP* J10.89 Influenza due to other identified influenza virus with other manifestations* New Medication:* Oseltamivir Phosphate 75 mg - one capsule twice a day by mouth x5 days * Z20.828 Contact with and (suspected) exposure to other viral communicable diseases Functional Status Description No Information Available Mental Status Description No Information Available Referrals Description No Information Available
--- OUTSIDE RECORDS SUMMARY | 2020-08-29 10:45 | CCD | Continuity of Care Document ---
Author Author Akilah VASQUEZ DESIGN ARCHITECT Organization Unknown Address [address] [place] [address] Phone [phone] Care Team Providers Care Screen Printing Machine Operator Helper Name Role Phone [facility] Adult Primary Care AUTM [phone] Ravindra Reyes MD AUTM [phone] [facility] Orth AUTM [phone] [place] [employer] [facility] AUTM [phone] Problems Description No Information Available Social History [...] H/L Range Note Laboratory test finding 04/10/[address] [id number] [phone] Urine Culture FULL REPORT IN L <SEE NOTE> Normal 1, 2 Laboratory test finding 12/29/[address] [address] [phone] Coronavirus 2019 Nasopharygeal This test was de <SEE N OTE> 3 Laboratory test finding 12/29/[address] [address] [phone] Throat Culture FULL REPORT IN L <SEE [...] developed and its performance characteristics determined by [facility]. This test has not been FDA cleared [...] detected) result in this assay. Performed at: [facility] [id number] Photographic Plate Maker: Rayne Lieberman MD, Phone: [phone] Not Detected 4 Rx Cefdinir 5 FULL [...] 01/26/2020 B02.9 Zoster without complications Adeline Vasquez, DESIGN ARCHITECT 12/29/2019 J02.9 Acute pharyngitis, unspecified S sanjiv Vasquez, DESIGN ARCHITECT 12/29/2019 R50.9 Fever, unspecified Shahida owen, DESIGN ARCHITECT 12/29/2019 R19.7 Diarrhea, unspecified Shahida lamar, CALI Plan of Treatment No Information Available Functional Status Description No Information Available Mental Status Description No Information Available Referrals Description No Information Available
--- OUTSIDE RECORDS SUMMARY | 2020-08-29 10:45 | CCD | Continuity of Care Document ---
Author Author Akilah MASSEY PA Organization Unknown Address [address] [place] [address] Phone [phone] Care Team Providers Care Emergency Detail Driver Name Role Phone [facility] Adult Primary Care AUTM [phone] Ravindra Reyes MD AUTM [phone] [facility] Orth AUTM [phone] [place] [employer] [facility] AUTM [phone] Problems Description No Information Available Social History Type Date Description Comments Sex Unknown ETOH Use Occasionally consumes alcohol Tobacco Use Start: Unknown Light tobacco smoker (10 or fewe r cigarettes/day) Smoking Status Reviewed: 07/10/20 Light tobacco smoker (10 or fewer cigarettes/day) Allergies, Adverse Reactions, Alerts Description No Known Drug Allergies Medications Active Medications SIG Qnty Indications Ordering Provide r Date Zyrtec Allergy 10mg Capsules 1 tab by [...] H/L Range Note Laboratory test finding 04/10/[address] [id number] [phone] Urine Culture FULL REPORT IN L <SEE [...] LACTAMASE IV NEGATIVE FOR ESBL 2 04/14/20 ([place] Apr 14) 01:06 P Néstor GUTIÉRREZ macrobid = s Procedures Date Code Description Status 07/10/2020 [address] Pressurized/Non-Pres surized Inhalation Treatment,Acute Obstructio Completed Medical [...] diseases Office Visit 04/10/2020 10:15a Main Office eTjinder Ramírez PGonzález N3 9.0 Urinary tract infection, site not [...] tract infection, site no t specified Tejinder Ramírez P.A. 01/26/2020 H65.01 Acute serous otitis media, right ear Shahida Gutiérrez NP 01/26/2020 B02.9 Zoster without complications Adeline Gutiérrez NP Plan of Treatment 07/10/2020 - ZACH Forman* J06.9 Acute upper respiratory infection, unspecified* Comments:* supportive: vit c, rest, fluids, steam, gargles if sore throat, RTC or seek other medical attention if worsening or just not better within 1 week * J45.901 Unspecified asthma with (acute) exacerbation* Comments:* albuterol neb in clinic today, pt tolerated well * Z20.828 Contact with and (suspected) exposure to other viral communicable diseases* Comments:* POC rapid COVID neg today, neg flu a and b Functional Status Description No Information Available Mental Status Description No Information Available Referrals Description No Information Available
--- OUTSIDE RECORDS SUMMARY | 2020-08-29 10:45 | CCD ---
Author Organization Unknown Address [address] [place] [address] Phone [phone] Care Team Providers Care Automatic Spinning Lathe Operator Name Role Phone Filiberto Estevez Unavailable Unavailable Allergies Code Code System Name Reaction Severity Status Onset NKDA Medications Name Status Start Date Stop Date albuterol sulfate HFA 90 mcg/actuation aerosol inhaler Active Not available amoxicillin 875 mg-potassium clavulanate 125 mg tablet Completed 05/03/2020 Arnuity Ellipta 100 mcg/actuation powder for inhalation Active Not available azithromycin 250 mg tablet Completed 05/03 benzonatate 200 mg capsule Completed 05/03 cefdinir 300 mg capsule Completed 05/03/20 20 cetirizine 10 mg tablet Active Not avai lable DOK 100 mg capsule 1 TABLET PO PRN Active Not available ferrous gluconate 324 mg (38 mg iron) tablet Active Not available gabapentin 300 mg capsule Completed 2019 gabapentin 400 mg capsule 1 TABLET QHS Active Not available metronidazole 500 mg tablet Completed 04/12 nitrofurantoin monohydrate/macrocrystals 100 mg capsule Complete d 05/03/2020 omeprazole 20 mg capsule,delayed release 1 TABLET PO AM Active Not available phenazopyridine 200 mg tablet Completed prednisone 10 mg tablet Completed 05/03/20 20 sulfamethoxazole 800 mg-trimethoprim 160 mg tablet Completed [...] 11/10/2016 History Clinical Finding Unknown 11/10/2016 History Diffuse Goiter Active 12/15/2016 History Chronic Thyroiditis Active 12/15/2016 History Overweight Active 01/18/2020 History Allergic Rhinitis Active 01/18/2020 History Uncomplicated Mild Persistent Asthma Active 01/18/[address] Concept Unknown 01/18/2020 History Iron Deficiency Active 02/23/2020 History Gastroesophageal Reflux Disease without Esophagitis Active 02/23/2020 History Procedures Date Name Performed by Remove Tonsils and Adenoids Information not available Ligation of Fallopian Tube Information n ot available Delivery Information not avai lable Notes: section x 6, tubal ligat ion 05/2016, Tonsillectomy, appendix Results Lab Results Date Name Specimen Result Interpretation Description Value Range Status Address 05/03/2020 Culture, Urine URINE,CLEAN CATCH No observation recorded. [facility]: [address] [facility] Past Encounters 08/05/2020 Exposure to SARS-CoV-2 Gregg Lucio MD: [address] [place] [address], Ph. 05/03/2020 Anemia; Iron Deficiency; Suprapubic Pain; Diffuse Goiter; Uncomplicated Mild Persistent Asthma Filiberto Estevez, [facility]: [address] [facility] [address] [address], Ph. Social History Tobacco Smoking Status Light Tobacco Smoker (07/15 PPD) Vaccine List Vaccine Type influenza, seasonal, injectable [...] Surgeries None recorded. Imaging None recorded. Vitals 05/03/2020 10:10AM ESTABLISHED [id number] Height Weight BMI Blood Pressure 65 in 156 lbs 16 oz 26.1 kg/m2 117/85 mm[Hg] 02/23/2020 Height Weight Blood Pressure 65 in 154 lbs 6.08 oz 119/78 mm[Hg] 01/18/2020 Height Weight Blood Pressure 65 in 157 lbs 6.08 oz 129/78 mm[Hg]
[2020-08-29 10:46] LABS: PARTIAL THROMBOPLASTIN TIME 31.1 SECONDS (24.2-38.5)
--- OUTSIDE RECORDS SUMMARY | 2020-08-29 10:46 | CCD ---
Author Author [facility] Organization [facility] Address Unknown Phone Unavailable Care Team Providers Care Zinc Miner Name Role Phone NIEVES, GENARO ANTHONY RPA-C Unavailable Unavailable NIEVES, GENARO ANTHONY RPA-C Unavailable Unavailable NIEVES, GENARO ANTHONY RPA-C Unavailable Unavailable NIEVES, GENARO ANTHONY RPA-C Unavailable Unavailable NIEVES, GENARO ANTHONY RPA-C Unavailable Unavailable NIEVES, GENARO ANTHONY RPA-C Unavailable Unavailable NIEVES, GENARO ANTHONY RPA-C Unavailable Unavailable NIEVES, GENARO ANTHONY RPA-C Unavailable Unavailable NIEVES, GENARO ANTHONY RPA-C Unavailable Unavailable NIEVES, GENARO ANTHONY RPA-C Unavailable Unavailable NIEVES, GENARO ANTHONY RPA-C Unavailable Unavailable NIEVES, GENARO ANTHONY RPA-C Unavailable Unavailable NIEVES, GENARO ANTHONY RPA-C Unavailable Unavailable NIEVES, GENARO ANTHONY RPA-C Unavailable Unavailable NIEVES, GENARO ANTHONY RPA-C Unavailable Unavailable NIEVES, GENARO ANTHONY RPA-C Unavailable Unavailable NIEVES, GENARO ANTHONY RPA-C Unavailable Unavailable NIEVES, GENARO ANTHONY RPA-C Unavailable Unavailable NIEVES, GENARO ANTHONY RPA-C Unavailable Unavailable NIEVES, GENARO ANTHONY RPA-C Unavailable Unavailable NIEVES, GENARO ANTHONY RPA-C Unavailable Unavailable NIEVES, GENARO ANTHONY RPA-C Unavailable Unavailable NIEVES, GENARO ANTHONY RPA-C Unavailable Unavailable NIEVES, GENARO ANTHONY RPA-C Unavailable Unavailable NIEVES, GENARO ANTHONY RPA-C Unavailable Unavailable NIEVES, GENARO ANTHONY RPA-C Unavailable Unavailable NIEVES, GENARO ANTHONY RPA-C Unavailable Unavailable NIEVES, GENARO ANTHONY RPA-C Unavailable Unavailable NIEVES, GENARO ANTHONY RPA-C Unavailable Unavailable NIEVES, GENARO ANTHONY RPA-C Unavailable Unavailable NIEVES, GENARO ANTHONY RPA-C Unavailable Unavailable NIEVES, GENARO ANTHONY RPA-C Unavailable Unavailable NIEVES, GENARO ANTOHNY RPA-C Unavailable Unavailable NIEVES, GENARO ANTHONY RPA-C Unavailable Unavailable NIEVES, GENARO ANTHONY RPA-C Unavailable Unavailable NIEVES, GENARO ANTHONY RPA-C Unavailable Unavailable NIEVES, GENARO ANTHONY RPA-C Unavailable Unavailable NIEVES, GENARO ANTHONY RPA-C Unavailable Unavailable NIEVES, GENARO ANTHONY RPA-C Unavailable Unavailable Kylie Lucio MD Unavailable Unavailable Kylie Lucio MD Unavailable Unavailable Kylie Lucio MD Unavailable Unavailable Kylie Lucio MD Unavailable Unavailable Kylie Lucio MD Unavailable Unavailable Kylie Lucio MD Unavailable Unavailable Kylie Lucio MD Unavailable Unavailable Kylie Lucio MD Unavailable Unavailable Kylie Lucio MD Unavailable Unavailable Kylie Lucio MD Unavailable Unavailable Kylie Lucio MD Unavailable Unavailable Kylie Lucio MD Unavailable Unavailable Kylie Lucio MD Unavailable Unavailable Kylie Lucio MD Unavailable Unavailable Kylie Lucio MD Unavailable Unavailable Kylie Lucio MD Unavailable Unavailable Kylie Lucio MD Unavailable Unavailable Kylie Lucio MD Unavailable Unavailable Kylie Lucio MD Unavailable Unavailable Kylie Lucio MD Unavailable Unavailable Kylie Lucio MD Unavailable Unavailable Kylie Lucio MD Unavailable Unavailable Kylie Lucio MD Unavailable Unavailable Kylie Lucio MD Unavailable Unavailable Kylie Lucio MD Unavailable Unavailable Kylie Lucio MD Unavailable Unavailable Kylie Lucio MD Unavailable Unavailable Kylie Lucio MD Unavailable Unavailable Kylie Lucio MD Unavailable Unavailable Kylie Lucio MD Unavailable Unavailable Kylie Lucio MD Unavailable Unavailable Kylie Lucio MD Unavailable Unavailable Kylie Lucio MD Unavailable Unavailable Kylie Lucio MD Unavailable Unavailable Kylie Lucio MD Unavailable Unavailable Kylie Lucio MD Unavailable Unavailable Kylie Lucio MD Unavailable Unavailable Kylie Lucio MD Unavailable Unavailable Kylie Lucio MD Unavailable Unavailable Kylie Lucio MD Unavailable Unavailable Kylie Lucio MD Unavailable Unavailable Kylie Lucio MD Unavailable Unavailable Kylie Lucio MD Unavailable Unavailable Kylie Lucio MD Unavailable Unavailable Kylie Lucio MD Unavailable Unavailable Kylie Lucio MD Unavailable Unavailable Kylie Lucio MD Unavailable Unavailable Kylie Lucio MD Unavailable Unavailable Kylie Lucio MD Unavailable Unavailable Kylie Lucio MD Unavailable Unavailable Kylie Lucio MD Unavailable Unavailable Kylie Lucio MD Unavailable Unavailable Kylie Lucio MD Unavailable Unavailable Kylie Lucio MD Unavailable Unavailable Kylie Lucio MD Unavailable Unavailable Kylie Lucio MD Unavailable Unavailable Kylie Lucio MD Unavailable Unavailable Kylie Lucio MD Unavailable Unavailable Kylie Lucio MD Unavailable Unavailable Kyile Lucio MD Unavailable Unavailable Kylie Lucio MD Unavailable Unavailable Kylie Lucio MD Unavailable Unavailable Kylie Lucio MD Unavailable Unavailable Kylie Lucio MD Unavailable Unavailable Kylie Lucio MD Unavailable Unavailable Kylie Lucio MD Unavailable Unavailable Kylie Lucio MD Unavailable Unavailable Kylie Lucio MD Unavailable Unavailable Kylie Lucio MD Unavailable Unavailable Kylie Lucio MD Unavailable Unavailable Kylie Lucio MD Unavailable Unavailable Kylie Lucio MD Unavailable Unavailable Kylie Lucio MD Unavailable Unavailable Kylie Lucio MD Unavailable Unavailable Kylie Lucio MD Unavailable Unavailable Kylie Lucio MD Unavailable Unavailable Kylie Lucio MD Unavailable Unavailable Kylie Lucio MD Unavailable Unavailable Kylie Lucio MD Unavailable Unavailable Kylie Lucio MD Unavailable Unavailable Kylie Lucio MD Unavailable Unavailable Kylie Lucio MD Unavailable Unavailable Kylie Lucio MD Unavailable Unavailable Kylie Lucio MD Unavailable Unavailable Kylie Lucio MD Unavailable Unavailable Kylie Lucio MD Unavailable Unavailable Kylie Lucio MD Unavailable Unavailable Kylie Lucio MD Unavailable Unavailable Kylie Lucio MD Unavailable Unavailable CampAbigail garay PA Unavailable Unavailable CampnayroLizae Tanvi PA Unavailable Unavailable Campanaro, Mare Tanvi PA Unavailable Unavailable Campanaro, Mare Tanvi PA Unavailable Unavailable Campanaro, Mare Tanvi PA Unavailable Unavailable Campanaro, Mare Tanvi PA Unavailable Unavailable Campanaro, Mare Tanvi PA Unavailable Unavailable Campanaro, Mare Tanvi PA Unavailable Unavailable Campanaro, Mare Tanvi PA Unavailable Unavailable Campanaro, Mare Tanvi PA Unavailable Unavailable Campanaro, Mare Tanvi PA Unavailable Unavailable Campanaro, Mare Tanvi PA Unavailable Unavailable Campanaro, Mare Tanvi PA Unavailable Unavailable Campanaro, Mare Tanvi PA Unavailable Unavailable Campanaro, Mare Tanvi PA Unavailable Unavailable Campanaro, Mare Tanvi PA Unavailable Unavailable Campanaro, Mare Tanvi PA Unavailable Unavailable Campanaro, Mare Tanvi PA Unavailable Unavailable Gris, Naveen Alex PA-C Unavailable Unavailable Gris, Naveen Alex PA-C Unavailable Unavailable Gris, Naveen Alex PA-C Unavailable Unavailable Gris, Naveen Alex PA-C Unavailable Unavailable Gris, Naveen Alex PA-C Unavailable Unavailable Gris, Naveen Alex PA-C Unavailable Unavailable Gris, Naveen Alex PA-C Unavailable Unavailable Gris, Naveen Alex PA-C Unavailable Unavailable Gris, Naveen Alex PA-C Unavailable Unavailable Gris, Naveen Alex PA-C Unavailable Unavailable Gris, Naveen Alex PA-C Unavailable Unavailable WEN, SAMUEL PA Unavailable Unavailable WEN, SAMUEL PA Unavailable Unavailable WEN, SAMUEL PA Unavailable Unavailable WEN, SAMUEL PA Unavailable Unavailable WEN, SAMUEL PA Unavailable Unavailable WEN, SAMUEL PA Unavailable Unavailable WEN, SAMUEL PA Unavailable Unavailable WEN, SAMUEL PA Unavailable Unavailable WEN, SAMUEL PA Unavailable Unavailable WEN, SAMUEL PA Unavailable Unavailable WEN, SAMUEL PA Unavailable Unavailable WEN, SAMUEL PA Unavailable Unavailable WEN, SAMUEL PA Unavailable Unavailable WEN, SAMUEL PA Unavailable Unavailable WEN, SAMUEL PA Unavailable Unavailable WEN, SAMUEL PA Unavailable Unavailable WEN, SAMUEL PA Unavailable Unavailable WEN, SAMUEL PA Unavailable Unavailable WEN, SAMUEL PA Unavailable Unavailable WEN, SAMUEL PA Unavailable Unavailable WEN, SAMUEL PA Unavailable Unavailable WEN, SAMUEL PA Unavailable Unavailable WEN, SAMUEL PA Unavailable Unavailable WEN, SAMUEL PA Unavailable Unavailable WEN, SAMUEL PA Unavailable Unavailable WEN, SAMUEL PA Unavailable Unavailable WEN, SAMUEL PA Unavailable Unavailable WEN, SAMUEL PA Unavailable Unavailable WEN, SAMUEL PA Unavailable Unavailable WEN, SAMUEL PA Unavailable Unavailable WEN, SAMUEL PA Unavailable Unavailable WEN, SAMUEL PA Unavailable Unavailable WEN, SAMUEL PA Unavailable Unavailable WEN, SAMUEL PA Unavailable Unavailable WEN, SAMUEL PA Unavailable Unavailable WEN, SAMUEL PA Unavailable Unavailable WEN, SAMUEL PA Unavailable Unavailable WEN, SAMUEL PA Unavailable Unavailable WEN, SAMUEL PA Unavailable Unavailable Zaheer Swan MD Unavailable Unavailable Zaheer Swan MD Unavailable Unavailable Zaheer Swna MD Unavailable Unavailable BenyZaheer [place]ville MD Unavailable Unavailable BenyZaheer [place] MD Unavailable Unavailable [place] MD Unavailable Unavailable Zaheer Swan MD Unavailable Unavailable [place] MD Unavailable Unavailable Zaheer Swan MD Unavailable Unavailable Zaheer Swan MD Unavailable Unavailable [place] MD Unavailable Unavailable Zaheer Swan MD Unavailable Unavailable Zaheer Swan MD Unavailable Unavailable Zaheer Swan MD Unavailable Unavailable Zaheer Swan MD Unavailable Unavailable Zaheer Swan MD Unavailable Unavailable Zaheer Swan MD Unavailable Unavailable Zaheer Swan MD Unavailable Unavailable Zaheer Swan MD Unavailable Unavailable Zaheer Swan MD Unavailable Unavailable Zaheer Swan MD Unavailable Unavailable Zaheer Swan MD Unavailable Unavailable Zaheer Swan MD Unavailable Unavailable Zaheer Swan MD Unavailable Unavailable BenyZaheer [place] MD Unavailable Unavailable Zaheer Swan MD Unavailable Unavailable Zaheer Swan MD Unavailable Unavailable Zaheer Swan MD Unavailable Unavailable Zaheer Swan MD Unavailable Unavailable BenyZaheer [place] MD Unavailable Unavailable [place] MD Unavailable Unavailable [place] MD Unavailable Unavailable BenyZaheer [place] MD Unavailable Unavailable [place] MD Unavailable Unavailable BenyZaheer [place] MD Unavailable Unavailable [place] MD Unavailable Unavailable BenyZaheer [place] MD Unavailable Unavailable [place] MD Unavailable Unavailable BenyZaheer [place] MD Unavailable Unavailable BenyZaheer [place] MD Unavailable Unavailable BenyZaheer MD Unavailable Unavailable [place] MD Unavailable Unavailable BenyZaheer MD Unavailable Unavailable [place] MD Unavailable Unavailable [place] MD Unavailable Unavailable [place] MD Unavailable Unavailable BenyZaheer MD Unavailable Unavailable [place] MD Unavailable Unavailable BenyZaheer MD Unavailable Unavailable [place] MD Unavailable Unavailable [place] MD Unavailable Unavailable [place] MD Unavailable Unavailable [place] MD Unavailable Unavailable [place] MD Unavailable Unavailable BenyZaheer MD Unavailable Unavailable BenyZaheer MD Unavailable Unavailable BenyZaheer MD Unavailable Unavailable [place] MD Unavailable Unavailable [place] MD Unavailable Unavailable [place] MD Unavailable Unavailable BenyZaheer MD Unavailable Unavailable BenyZaheer MD Unavailable Unavailable BenyZaheer MD Unavailable Unavailable BenyZaheer MD Unavailable Unavailable BenyZaheer MD Unavailable Unavailable [place] MD Unavailable Unavailable BenyZaheer MD Unavailable Unavailable BenyZaheer MD Unavailable Unavailable [place] MD Unavailable Unavailable BenyZaheer MD Unavailable Unavailable [place] MD Unavailable Unavailable [place] MD Unavailable Unavailable BenyZaheer MD Unavailable Unavailable [place] MD Unavailable Unavailable BenyZaheer MD Unavailable Unavailable [place] MD Unavailable Unavailable [place] MD Unavailable Unavailable [place] MD Unavailable Unavailable BenyZaheer [place] MD Unavailable Unavailable BenyZaheer [place] MD Unavailable Unavailable BenyZaheer [place] MD Unavailable Unavailable [place] MD Unavailable Unavailable [place] MD Unavailable Unavailable [place] MD Unavailable Unavailable BenyZaheer MD Unavailable Unavailable BenyZaheer MD Unavailable Unavailable Gutiérrez, Shahida MACHINE DEICER ELEMENT WINDER Unavailable Unavailable Gutiérrez, Shahida MACHINE DEICER ELEMENT WINDER Unavailable Unavailable Gutiérrez, Shahida MACHINE DEICER ELEMENT WINDER Unavailable Unavailable Gutiérrez, Shahida MACHINE DEICER ELEMENT WINDER Unavailable Unavailable Gutiérrez, Shahida MACHINE DEICER ELEMENT WINDER Unavailable Unavailable Gutiérrez, Shahida MACHINE DEICER ELEMENT WINDER Unavailable Unavailable Gutiérrez, Shahida MACHINE DEICER ELEMENT WINDER Unavailable Unavailable Gutiérrez, Shahida MACHINE DEICER ELEMENT WINDER Unavailable Unavailable Gutiérrez, Shahida MACHINE DEICER ELEMENT WINDER Unavailable Unavailable Gutiérrez, Shahida MACHINE DEICER ELEMENT WINDER Unavailable Unavailable Gutiérrez, Shahida MACHINE DEICER ELEMENT WINDER Unavailable Unavailable Demetris, Khushbu CORPORATE RISK ANALYST CORPORATE RISK ANALYST Unavailable Unavailable NIEVES, GENARO ANTHONY RPA-C Unavailable Unavailable NIEVES, GENARO ANTHONY RPA-C Unavailable Unavailable NIEVES, GENARO ANTHONY RPA-C Unavailable Unavailable NIEVES, GENARO ANTHONY RPA-C Unavailable Unavailable NIEVES, GENARO ANTHONY RPA-C Unavailable Unavailable NIEVES, GENARO ANTHONY RPA-C Unavailable Unavailable NIEVES, GENARO ANTHONY RPA-C Unavailable Unavailable NIEVES, GENARO ANTHONY RPA-C Unavailable Unavailable NIEVES, GENARO ANTHONY RPA-C Unavailable Unavailable NIEVES, GENARO ANTHONY RPA-C Unavailable Unavailable NIEVES, GENARO ANTHONY RPA-C Unavailable Unavailable NIEVES, GENARO ANTHONY RPA-C Unavailable Unavailable NIEVES, GENARO ANTHONY RPA-C Unavailable Unavailable NIEVES, GENARO ANTHONY RPA-C Unavailable Unavailable NIEVES, GENARO ANTHONY RPA-C Unavailable Unavailable NIEVES, GENARO ANTHONY RPA-C Unavailable Unavailable NIEVES, GENARO ANTHONY RPA-C Unavailable Unavailable NIEVES, GENARO ANTHONY RPA-C Unavailable Unavailable NIEVES, GENARO ANTHONY RPA-C Unavailable Unavailable NIEVES, GENARO ANTHONY RPA-C Unavailable Unavailable NIEVES, GENARO ANTHONY RPA-C Unavailable Unavailable NIEVES, GENARO ANTHONY RPA-C Unavailable Unavailable NIEVES, GENARO ANTHONY RPA-C Unavailable Unavailable NIEVES, GENARO ANTHONY RPA-C Unavailable Unavailable NIEVES, GENARO ANTHONY RPA-C Unavailable Unavailable NIEVES, GENARO ANTHONY RPA-C Unavailable Unavailable NIEVES, GENARO ANTHONY RPA-C Unavailable Unavailable NIEVES, GENARO ANTHONY RPA-C Unavailable Unavailable NIEVES, GENARO ANTHONY RPA-C Unavailable Unavailable NIEVES, GENARO ANTHONY RPA-C Unavailable Unavailable NIEVES, GENARO ANTHONY RPA-C Unavailable Unavailable NIEVES, GENARO ANTHONY RPA-C Unavailable Unavailable NIEVES, GENARO ANTHONY RPA-C Unavailable Unavailable NIEVES, GENARO ANTHONY RPA-C Unavailable Unavailable NIEVES, GENARO ANTHONY RPA-C Unavailable Unavailable NIEVES, GENARO ANTHONY RPA-C Unavailable Unavailable NIEVES, GENARO ANTHONY RPA-C Unavailable Unavailable NIEVES, GENARO ANTHONY RPA-C Unavailable Unavailable NIEVES, GENARO ANTHONY RPA-C Unavailable Unavailable Monge, Maru Martina PA Unavailable Unavailable Monge, Maru Martina PA Unavailable Unavailable Monge, Maru Martina PA Unavailable Unavailable Monge, Maru Martina PA Unavailable Unavailable Monge, Maru Martina PA Unavailable Unavailable Monge, Maru Martina PA Unavailable Unavailable Monge, Maru Martina PA Unavailable Unavailable Monge, Maru Martina PA Unavailable Unavailable Monge, Maru Martina PA Unavailable Unavailable Monge, Maru Martina PA Unavailable Unavailable Gayle, Brissa Unavailable [phone] Gayle, Brissa Unavailable [phone] [facility], RFROST NIEVES PA ANTHONY Unavailable Unavailable YUNG, KISHORE MD Unavailable Unavailable YUNG, KISHORE MD Unavailable Unavailable YUNG, KISHORE MD Unavailable Unavailable YUNG, KISHORE MD Unavailable Unavailable YUNG, KISHORE MD Unavailable Unavailable YUNG, KISHORE MD Unavailable Unavailable YUNG, KISHORE MD Unavailable Unavailable YUNG, KISHORE MD Unavailable Unavailable YUNG, KISHORE MD Unavailable Unavailable YUNG, KISHORE MD Unavailable Unavailable YUNG, KISHORE MD Unavailable Unavailable YUNG, KISHORE MD Unavailable Unavailable YUNG, KISHORE MD Unavailable Unavailable YUNG, KISHORE MD Unavailable Unavailable YUNG, KISHORE MD Unavailable Unavailable YUNG, KISHORE MD Unavailable Unavailable YUNG, KISHORE MD Unavailable Unavailable YUNG, KISHORE MD Unavailable Unavailable YUNG, KISHORE MD Unavailable Unavailable YUNG, KISHORE MD Unavailable Unavailable YUNG, KISHORE MD Unavailable Unavailable YUNG, KISHORE MD Unavailable Unavailable YUNG, KISHORE MD Unavailable Unavailable YUNG, KISHORE MD Unavailable Unavailable YUNG, KISHORE MD Unavailable Unavailable YUNG, KISHORE MD Unavailable Unavailable YUNG, KISHORE MD Unavailable Unavailable YUNG, KISHORE MD Unavailable Unavailable YUNG, KISHORE MD Unavailable Unavailable YUNG, KISHORE MD Unavailable Unavailable Re-disclosure Warning The records that you are about to access may contain information from federally-assisted alcohol or drug abuse programs. If such information is present, then the following federally mandated warning applies: This information has been disclosed to you from records protected by federal confidentiality rules (42 CFR part 2). The federal rules prohibit you from making any further disclosure of this information unless further disclosure is expressly permitted by the written consent of the person to whom it pertains or as otherwise permitted by 42 CFR part 2. A general authorization for the release of medical or other information is NOT sufficient for this purpose. The Federal rules restrict any use of the information to criminally investigate or prosecute any alcohol or drug abuse patient.The records that you are about to access may contain highly sensitive health information, the redisclosure of which is protected by Article 27-F of the [facility] Public Health law. If you continue you may have access to information: Regarding HIV / AIDS; Provided by facilities licensed or operated by the [facility] Office of Mental Health; or Provided by the [facility] Office for People With Developmental Disabilities. If such information is present, then the following [facility] mandated warning applies: This information has been disclosed to you from confidential records which are protected by state law. State law prohibits you from making any further disclosure of this information without the specific written consent of the person to whom it pertains, or as otherwise permitted by law. Any unauthorized further disclosure in violation of state law may result in a fine or fdc sentence or both. A general authorization for the release of medical or other information is NOT sufficient authorization for further disc losure. Allergies and Adverse Reactions Type Description Substance Reaction Status Data Source(s ) No Known Drug Allergies No Known Drug Allergies [facility] Family History Family Member Name Family Member Gender Family Member Status Date o f Status Description Data Source(s) Unknown Female Problem [facility] ([facility]) Unknown Unknown Problem [facility] ([facility], ) Negative for inflammatory bowel disease, positive for colorectal carcinoma in her grandfather Unknown Unknown Problem [facility] ([facility] ) Unknown Unknown Problem [facility] ([facility], ) Unknown Unknown Problem [facility] ([facility], ) Unknown Unknown Problem [facility] ([facility], ) Unknown Unknown Problem [facility] ([facility], ) Encounters Encounter Providers Location Date Indications Data Source(s ) Aracelis Araujo MD: [address] [place] [address], [facility] [address] [address], Ph. Attender: Aracelis Araujo [place] - [facility] Medical 08/27/2020 12:00:00 AM MADISON FISCHER ([facility]) Gregg Lucio MD: [address] [place] [address], Ph. Attender: Gregg Lucio MD [facility] Medical 08/05/2020 12:00:00 AM EST AALIYAH ([facility]) Gregg Lucio MD: [address] [place] [address], Ph. Attender: Gregg Lucio MD [facility] Medical 08/05/2020 12:00:00 AM EST AALIYAH ([facility]) Outpatient Attender: Martina kidd 07/10/2020 09:00:00 AM EST [facility] ([facility]) Outpatient Attender: Shahida gipson 06/05/2020 02:00:00 PM EST [facility] ([facility], [facility]) Outpatient Attender: VARSHA CRUZ [facility] 04/12 10:42:[address] [facility] Outpatient Attender: ANTHONY LAI [facility] 05/03/2020 10:42:[address] [facility] Outpatient Attender: ANTHONY LAI [facility] 05/03/2020 10:41:[address] [facility] Outpatient Attender: VARSHA CRUZ [facility] 04/12 10:41:[address] [facility] ANGIE RomeroC: [address], [place] [address], Ph. Attender: ANTHONY LAI [facility] Medical 05/03/2020 12:00:00 AM EDT AALIYAH ([facility]) ANGIE RomeroC: [address], [place] [address], Ph. Attender: ANTHONY LAI [facility] Medical 05/03/2020 12:00:00 AM EDT AALIYAH ([facility]) JOELLE Romero: [address] [facility] [address], [place] [address], Ph. Attender: ANTHONY LAI [facility] Medical 05/03/2020 12:00:00 AM EDT AALIYAH ([facility]) Outpatient Attender: VARSHA CRUZ [facility] 04/11 11:41:[address] [facility] Outpatient Attender: SAMUEL henderson 04/10/2020 10:15:00 AM EDT MED[facility] ([facility], [facility]) Outpatient Attender: VARSHA CRUZ [facility] 09/2019 09:17:[address] [facility] Outpatient Attender: VARSHA CRUZ [facility] 08/2019 10:10:[address] [facility] Outpatient Attender: ANTHONY LAI [facility] 02/23/2020 10:54:[address] [facility] Outpatient Attender: VARSHA CRUZ [facility] 02/09 10:33:[address] [facility] Outpatient Attender: VARSHA CRUZ [facility] 01/10 05:40:[address] [facility] Outpatient Attender: ANTHONY LAI [facility] 02/06/2020 05:40:[address] [facility] Outpatient Attender: VARSHA CRUZ [facility] 01/10 01:21:[address] [facility] Outpatient Attender: VARSHA CRUZ [facility] 01/10 10:42:[address] [facility] Outpatient Attender: VARSHA CRUZ [facility] 01/10 05:33:[address] [facility] Outpatient Attender: ANTHONY LAI [facility] 01/30/2020 05:32:[address] [facility] Outpatient Attender: VARSHA GREENE [facility] 01/10 10:58:[address] [facility] Outpatient Attender: ANTHONY NIEVES RPA-C [facility] 01/29/2020 10:58:[address] [facility] Outpatient Attender: Shahida gipson 01/26/2020 12:30:00 PM EDT MED[facility] ([facility] Outpatient Attender: NEDMARZENA LIZBETH [facility] 01/09 02:46:[address] [facility] Outpatient Attender: MARTIN SALAZAR 01/18/2020 10:40:[address] [facility] Outpatient Attender: MARTIN SALAZAR 01/08/2020 10:59:[address] [facility] Outpatient Attender: Shahida gipson 12/29/2019 09:50:00 AM EDT [facility] ([facility]) Outpatient [address] [facility] [id number] 12/11/2019 12:00:00 AM EDT eC1 ([facility] Breast Care [address] [place] [address] 11/10/2019 12:00:00 AM EDT [facility] ([facility]) Outpatient Attender: MARTIN SALAZAR FP 11/07/2019 03:11:[address] [facility] Outpatient 10/28/2019 07:43:00 AM EDT [facility] Imaging Outpatient Attender: KISHORE YUNG MD Physical Therapy 10:30:00 AM EDT [facility] ([facility]) Outpatient Attender: SAMUEL henderson 10/16/2019 04:10:00 PM EDT [facility] ([facility]) Outpatient Attender: MARTIN SALAZAR FP 10/11/2019 03:50:[address] [facility] Outpatient 10/10/2019 02:00:00 PM EDT [facility] Emergency Attender: Isai SERRANO-CConsultant: Pedrito Swan MD 10/10/2019 01:38:00 PM EDT - 10/10/2019 04:48:00 PM EDT [facility] Patient discharged. Outpatient Attender: Shahida gipson 10/03/2019 11:00:00 AM EDT [facility] ([facility], [facility]) Outpatient Attender: Tanvi Dias Prim marti 09/26/2019 05:15:00 PM EDT [facility] ([facility], [facility]) Outpatient Attender: MARTIN MOSS 08/09/2019 11:44:[address] [facility] Medications Medication Brand Name Start Date Product Form Dose Route Admi nistrative Instructions Pharmacy Instructions Status Indications Reaction Description Data Source(s) 8 mg 08/27/2020 12:00:00 AM EST tablet,disintegrating [address] ONE TABLET UNDER THE TONGUE THREE TIMES A DAY PLACE ONE TABLET UNDER THE TONGUE THREE TIMES A DAY SOLD: 08/27/2020 [facility] 4 mg 08/21/2020 12:00:00 AM EST tablet,disintegrating 1 6 DISSOLVE ONE TABLET ON TONGUE EVERY 6 TO 8 HOURS NEEDED FOR NAUSEA AND VOMITING DISSOLVE ONE TABLET ON TONGUE EVERY 6 TO 8 HOURS NEEDED FOR NAUSEA AND VOMITING SOLD: 08/21/2020 [facility] 5-325 mg 08/21/2020 12:00:00 AM EST tablet 15 TAKE ONE TABLET BY MOUTH THREE TIMES A DAY NEEDED FOR PAIN MAXIMUM DAILY DOSE = THREE TABLETS TAKE ONE TABLET BY MOUTH THREE TIMES A DAY NEEDED FOR PAIN MAXIMUM DAILY DOSE = THREE TABLETS SOLD: 08/21/2020 [facility] Prednisone 20 MG Oral Tablet Prednisone 07/10/2020 12:00:00 AM EST active [facility] ([facility], [facility]) 20 mg 07/10/2020 12:00:00 AM EST tablet 15 TAKE ONE TABLET BY MOUTH THREE TIMES A DAY FOR 5 DAYS TAKE ONE TABLET BY MOUTH THREE TIMES A DAY FOR 5 DAYS SOLD: 07/10/2020 [facility] Oseltamivir 75 MG Oral Capsule Oseltamivir Phosphate 06/05/2020 12:00:00 AM EST ORAL completed [facility] ([facility], [facility]) 75 mg 06/05/2020 12:00:00 AM EST capsule 10 TAKE ONE CAPSULE BY MOUTH TWICE A DAY FOR 5 DAYS TAKE ONE CAPSULE BY MOUTH TWICE A DAY FOR 5 DAYS SOLD: 06/05/2020 [facility] 100 mg 04/10/2020 12:00:00 AM EDT capsule 10 TAKE ONE CAPSULE BY MOUTH TWICE A DAY FOR 5 DAYS WITH FOOD TAKE ONE CAPSULE BY MOUTH TWICE A DAY FO R 5 DAYS WITH FOOD SOLD: 04/10/2020 [facility] 200 mg 04/10/2020 12:00:00 AM EDT tablet 6 TAKE ONE TABLET BY MOUTH THREE TIMES A DAY AFTER MEALS FOR 2 DAYS TAKE ONE TABLET BY MOUTH THREE TIMES A D AY AFTER MEALS FOR 2 DAYS SOLD: 04/10/2020 [facility] NITROFURANTOIN, MACROCRYSTALS 25 MG / Ni trofurantoin, Monohydrate 75 MG Oral Capsule [Macrobid] Macrobid 04/10/2020 12:00:00 AM EDT ORAL completed [facility] ([facility], [facility]) Phenazopyridine hydrochloride 200 MG Oral Tablet [Pyridium] Pyridium 04/10/2020 12:00:00 AM EDT ORAL completed [facility] ([facility], [facility]) 20 mg 02/27/2020 12:00:00 AM EDT capsule,delayed release (DR/EC) 30 TAKE ONE CAPSULE BY MOUTH EVERY MORNING ON AN EMPTY STOMACH WITH WATER TAKE ONE CAPSULE BY MOUTH EVERY MORNING ON AN EMPTY STOMACH WITH WATER SOLD: 05/12/2020 [facility] 20 mg 02/27/2020 12:00:00 AM EDT capsule,delayed release (DR/EC) 30 TAKE ONE CAPSULE BY MOUTH EVERY MORNING ON AN EMPTY STOMACH WITH WATER TAKE ONE CAPSULE BY MOUTH EVERY MORNING ON AN EMPTY STOMACH WITH WATER SOLD: 03/21/2020 [facility] 324 mg (38 mg iron) 02/23/2020 12:00:00 AM EDT tablet 30 TAKE ONE TABLET BY MOUTH EVERY DAY TAKE ONE TABLET BY MOUTH EVERY DAY SOLD: 02/23/2020 [facility] 100 mg 02/23/2020 12:00:00 AM EDT capsule 90 TAKE ONE CAPSULE BY MOUTH THREE TIMES A DAY NEEDED FOR CONSTIPATION TAKE ONE CAPSULE BY MOUTH THREE TIMES A DAY NEEDED FOR CONSTIPATION SOLD: 02/23/2020 [facility] 400 mg 02/23/2020 12:00:00 AM EDT capsule 60 TAKE ONE CAPSULE BY MOUTH TWICE A DAY NEEDED TAKE ONE CAPSULE BY MOUTH TWICE A DAY NEEDED SOLD: 04/10/2020 [facility] 400 mg 02/23/2020 12:00:00 AM EDT capsule 60 TAKE ONE CAPSULE BY MOUTH TWICE A DAY NEEDED TAKE ONE CAPSULE BY MOUTH TWICE A DAY NEEDED SOLD: 02/23/2020 [facility] 400 mg 02/23/2020 12:00:00 AM EDT capsule 60 TAKE ONE CAPSULE BY MOUTH TWICE A DAY NEEDED TAKE ONE CAPSULE BY MOUTH TWICE A DAY NEEDED SOLD: 05/12/2020 [facility] 324 mg (38 mg iron) 02/23/2020 12:00:00 AM EDT tablet 30 TAKE ONE TABLET BY MOUTH EVERY DAY TAKE ONE TABLET BY MOUTH EVERY DAY SOLD: 04/10/2020 [facility] 400 mg 02/23/2020 12:00:00 AM EDT capsule 60 TAKE ONE CAPSULE BY MOUTH TWICE A DAY NEEDED TAKE ONE CAPSULE BY MOUTH TWICE A DAY NEEDED SOLD: 08/12/2020 [facility] 1 gram 01/30/2020 12:00:00 AM EDT tablet 21 TAKE ONE TABLET BY MOUTH THREE TIMES A DAY TAKE ONE TABLET BY MOUTH THREE TIMES A DAY SOLD: 02/01/2020 [facility] 800-160 mg 01/28/2020 12:00:00 AM EDT tablet 20 TAKE ONE TABLET BY MOUTH EVERY 12 HOURS TAKE ONE TABLET BY MOUTH EVERY 12 HOURS SOLD: 01/28/2020 [facility] 300 mg 01/28/2020 12:00:00 AM EDT capsule 30 TAKE ONE CAPSULE BY MOUTH THREE TIMES A DAY TAKE ONE CAPSULE BY MOUTH THREE TIMES A DAY SOLD: 01/28/2020 [facility] cefdinir 300 MG Oral Capsule Cefdinir 01/26/2020 12:00:00 AM EDT ORAL completed [facility] ([facility]) 300 mg 01/26/2020 12:00:00 AM EDT capsule 20 TAKE ONE CAPSULE BY MOUTH TWICE A DAY FOR 10 DAYS TAKE ONE CAPSULE BY MOUTH TWICE A DAY FOR 10 DAYS SOLD : 01/26/2020 [facility] valacyclovir 1000 MG Oral Tablet Valacyclovir HCL 01/26/2020 12:00: 00 AM EDT completed [facility] ([facility]) 1 gram 01/26/2020 12:00:00 AM EDT tablet 14 TAKE ONE TABLET BY MOUTH TWICE A DAY FOR 7 DAYS TAKE ONE TABLET BY MOUTH TWICE A DAY FOR 7 DAYS SOLD: 01/26/2020 [facility] 400 mg 01/24/2020 12:00:00 AM EDT capsule 30 TAKE ONE CAPSULE BY MOUTH AT BEDTIME TAKE ONE CAPSULE BY MOUTH AT BEDTIME SOLD: 01/26/2020 [facility] 100 mcg/actuation 01/19/2020 12:00:00 AM EDT blister with de vice 30 INHALE ONE PUFF BY MOUTH EVERY DAY INHALE ONE PUFF BY MOUTH EVERY DAY SOLD: 07/10/2020 [facility] 100 mcg/actuation 01/19/2020 12:00:00 AM EDT blister with de vice 30 INHALE ONE PUFF BY MOUTH EVERY DAY INHALE ONE PUFF BY MOUTH EVERY DAY SOLD: 01/21/2020 [facility] 10 mg 01/18/2020 12:00:00 AM EDT tablet 30 TAKE ONE TABLET BY MOUTH EVERY DAY TAKE ONE TABLET BY MOUTH EVERY DAY SOLD: 05/12/2020 [facility] 10 mg 01/18/2020 12:00:00 AM EDT tablet 30 TAKE ONE TABLET BY MOUTH EVERY DAY TAKE ONE TABLET BY MOUTH EVERY DAY SOLD: 08/12/2020 [facility] 90 mcg/actuation 01/18/2020 12:00:00 AM EDT HFA aerosol inha ler 8 INHALE TWO PUFFS BY MOUTH EVERY 4 HOURS NEEDED FOR WHEEZING OR FOR SHORTNESS OF BREATH INHALE TWO PUFFS BY MOUTH EVERY 4 HOURS NEEDED FOR WHEEZING OR FOR SHORTNESS OF BREATH SOLD: 01/19/2020 [facility] 90 mcg/actuation 01/18/2020 12:00:00 AM EDT HFA aerosol inha ler 8 INHALE TWO PUFFS BY MOUTH EVERY 4 HOURS NEEDED FOR WHEEZING OR FOR SHORTNESS OF BREATH INHALE TWO PUFFS BY MOUTH EVERY 4 HOURS NEEDED FOR WHEEZING OR FOR SHORTNESS OF BREATH SOLD: 07/10/2020 [facility] 10 mg 01/18/2020 12:00:00 AM EDT tablet 30 TAKE ONE TABLET BY MOUTH EVERY DAY TAKE ONE TABLET BY MOUTH EVERY DAY SOLD: 03/21/2020 [facility] 10 mg 01/18/2020 12:00:00 AM EDT tablet 30 TAKE ONE TABLET BY MOUTH EVERY DAY TAKE ONE TABLET BY MOUTH EVERY DAY SOLD: 01/19/2020 [facility] 10 mg 01/18/2020 12:00:00 AM EDT tablet 30 TAKE ONE TABLET BY MOUTH EVERY DAY TAKE ONE TABLET BY MOUTH EVERY DAY SOLD: 06/28/2020 [facility] 300 mg 12/29/2019 12:00:00 AM EDT capsule 20 TAKE ONE CAPSULE BY MOUTH TWICE A DAY FOR 10 DAYS TAKE ONE CAPSULE BY MOUTH TWICE A DAY FOR 10 DAYS SOLD : 12/29/2019 [facility] cefdinir 300 MG Oral Capsule Cefdinir 12/29/2019 12:00:00 AM EDT ORAL completed [facility] ([facility]) 500 mg 11/10/2019 12:00:00 AM EDT tablet 14 TAKE ONE TABLET BY MOUTH TWICE A DAY WITH FOOD FOR 7 DAYS DO NOT DRINK ALCOHOL TAKE ONE TABLET BY MOUTH TWICE A DAY WITH FOOD FOR 7 DAYS DO NOT DRINK ALCOHOL SOLD: 11/10/2019 [facility] Metronidazole 500 MG Oral Tablet Metronidazole 500 MG 2019 12:00:00 AM EDT 1.0 {tablet} suspended Metronid azole 500 MG eCW1 ([facility]) Metronidazole 500 MG Oral Tablet Metronidazole 500 MG 2019 12:00:00 AM EDT active 1 tablet eCW1 ([facility]) 300 mg 10/10/2019 12:00:00 AM EDT capsule 20 TAKE ONE CAPSULE BY MOUTH TWICE A DAY TAKE ONE CAPSULE BY MOUTH TWICE A DAY SOLD: 10/10/2019 [facility] 250 mg 10/10/2019 12:00:00 AM EDT tablet 4 TAKE ONE TABLET BY MOUTH EVERY DAY TAKE ONE TABLET BY MOUTH EVERY DAY SOLD: 10/10/2019 [facility] 875-125 mg 10/03/2019 12:00:00 AM EDT tablet 20 TAKE ONE TABLET BY MOUTH TWICE A DAY DIRECTED FOR 10 DAYS TAKE ONE TABLET BY MOUTH TWICE A DAY DIRECTED FOR 10 DAYS SOLD: 10/03/2019 [facility] Amoxicillin 875 MG / Clavulanate 125 MG Oral Tablet Am oxicillin/Clavulanate Potassium 10/03/2019 12:00:00 AM EDT ORAL completed [facility] ([facility]) Prednisone 10 MG Oral Tablet Prednisone 10/03/2019 12:00:00 AM EDT completed [facility] ([facility]) 10 mg 10/03/2019 12:00:00 AM EDT tablet 30 TAKE 4 TABLETS DAILY FOR 3 DAYS THEN 3 TABLETS DAILY FOR 3 DAYS THEN 2 TABLETS DAILY FOR 3 DAYS THEN 1 TABLET DAILY FOR 3 DAYS TAKE 4 TABLETS DAILY FOR 3 DAYS THEN 3 T ABLETS DAILY FOR 3 DAYS THEN 2 TABLETS DAILY FOR 3 DAYS THEN 1 TABLET DAILY FOR 3 DAYS SOLD: 10/03/2019 [facility] 200 ACTUAT Albuterol 0.09 MG/ACTUAT Metered Dose Inhal er [Ventolin] Ventolin HFA 09/27/2019 12:00:00 AM EDT RESPIRATORY completed [facility] ([facility]) 90 mcg/actuation 09/27/2019 12:00:00 AM EDT HFA aerosol inha ler 18 INHALE TWO PUFFS BY MOUTH EVERY 4-6 HOURS NEEDED FOR SOB/WHEEZE INHALE TWO PUFFS BY MOUTH EVERY 4-6 HOURS NEEDED FOR SOB/WHEEZE SOLD: 09/27/2019 [facility] Prednisone 10 MG Oral Tablet Prednisone 09/26/2019 12:00:00 AM EDT ORAL completed [facility] ([facility]) 10 mg 09/26/2019 12:00:00 AM EDT tablet 8 TAKE ONE TABLET BY MOUTH TWICE A DAY FOR 4 DAYS TAKE ONE TABLET BY MOUTH TWICE A DAY FOR 4 DAYS SOLD: 2019 [facility] benzonatate 200 MG Oral Capsule BENZONATATE 08/14/2019 12:00:00 AM EST capsule 30 TAKE ONE CAPSULE BY MOUTH THREE TIMES A DAY FOR 10 DAYS TAKE ONE CAPSULE BY MOUTH THREE TIMES A DAY FOR 10 DAYS SOLD: 08/14/2019 [facility] 90 mcg/actuation 08/14/2019 12:00:00 AM EST HFA aerosol inha ler 18 INHALE TWO PUFFS BY MOUTH THREE TIMES A DAY FOR 10 DAYS INHALE TWO PUFFS BY MOUTH THREE TIMES A DAY FOR 10 DAYS SOLD: 08/14/2019 [facility] Omeprazole 20 MG Delayed Release Oral Ca psule omeprazole 20 mg capsule,delayed release TAKE ONE CAPSULE BY MOUTH EVERY MORNING ON AN EMPTY STOMACH WITH WATER omeprazole 20 mg capsule,delayed release TAKE ONE CAPSULE BY MOUTH EVERY MORNING ON AN EMPTY STOMACH WITH WATER comple ana omeprazole 20 MG Delayed Release Oral Capsule AALIYAH ([facility]) NITROFURANTOIN, MACROCRYSTALS 25 MG / Ni trofurantoin, Monohydrate 75 MG Oral Capsule nitrofurantoin monohydrate/macrocrystals 100 mg capsule nitrofurantoin monohydrate/macrocrystals 100 mg capsule completed nitrofurantoin, macrocrystals 25 MG / nitrofurantoin, monohydrate 75 MG Oral Capsule [facility] ([facility]) benzonatate 200 MG Oral Capsule benzonatate 200 mg cap yared benzonatate 200 mg capsule completed benzonatate 20 0 MG Oral Capsule [facility] ([facility]) Prednisone 10 MG Oral Tablet prednisone 10 mg tablet prednisone 10 mg tablet completed prednisone 10 MG Oral Tablet [facility] ([facility]) Sulfamethoxazole 800 MG / Trimethoprim 1 60 MG Oral Tablet sulfamethoxazole 800 mg-trimethoprim 160 mg tablet sulfamethoxazole 800 mg-trimethoprim 160 mg tablet completed sulfame thoxazole 800 MG / trimethoprim 160 MG Oral Tablet [facility] ([facility]) Metronidazole 500 MG Oral Tablet metronidazole 500 mg tablet metronidazole 500 mg tablet completed metronidazol e 500 MG Oral Tablet [facility] ([facility]) Sulfamethoxazole 800 MG / Trimethoprim 1 60 MG Oral Tablet sulfamethoxazole 800 mg-trimethoprim 160 mg tablet sulfamethoxazole 800 mg-trimethoprim 160 mg tablet completed sulfame thoxazole 800 MG / trimethoprim 160 MG Oral Tablet [facility] ([facility]) NITROFURANTOIN, MACROCRYSTALS 25 MG / Ni trofurantoin, Monohydrate 75 MG Oral Capsule nitrofurantoin monohydrate/macrocrystals 100 mg capsule nitrofurantoin monohydrate/macrocrystals 100 mg capsule completed nitrofurantoin, macrocrystals 25 MG / nitrofurantoin, monohydrate 75 MG Oral Capsule [facility] ([facility]) gabapentin 300 MG Oral Capsule gabapentin 300 mg capsu le gabapentin 300 mg capsule completed gabapentin 300 MG Oral Capsule [facility] ([facility]) Azithromycin 250 MG Oral Tablet azithromycin 250 mg ta blet azithromycin 250 mg tablet completed azithromycin 25 0 MG Oral Tablet [facility] ([facility]) benzonatate 200 MG Oral Capsule benzonatate 200 mg cap yared benzonatate 200 mg capsule completed benzonatate 20 0 MG Oral Capsule [facility] ([facility]) valacyclovir 1000 MG Oral Tablet valacyclovir 1 gram t ablet valacyclovir 1 gram tablet completed valacyclovir 10 00 MG Oral Tablet AALIYAH ([facility]) gabapentin 300 MG Oral Capsule gabapentin 300 mg capsu le gabapentin 300 mg capsule completed gabapentin 300 MG Oral Capsule [facility] ([facility]) NITROFURANTOIN, MACROCRYSTALS 25 MG / Ni trofurantoin, Monohydrate 75 MG Oral Capsule nitrofurantoin monohydrate/macrocrystals 100 mg capsule nitrofurantoin monohydrate/macrocrystals 100 mg capsule completed nitrofurantoin, macrocrystals 25 MG / nitrofurantoin, monohydrate 75 MG Oral Capsule [facility] ([facility]) Metronidazole 500 MG Oral Tablet metronidazole 500 mg tablet metronidazole 500 mg tablet completed metronidazol e 500 MG Oral Tablet [facility] ([facility]) Azithromycin 250 MG Oral Tablet azithromycin 250 mg ta blet azithromycin 250 mg tablet completed azithromycin 25 0 MG Oral Tablet [facility] ([facility]) Prednisone 10 MG Oral Tablet prednisone 10 mg tablet prednisone 10 mg tablet completed prednisone 10 MG Oral Tablet [facility] ([facility]) cefdinir 300 MG Oral Capsule cefdinir 300 mg capsule cefdinir 30 0 mg capsule completed cefdinir 300 M G Oral Capsule [facility] ([facility]) Amoxicillin 875 MG / Clavulanate 125 MG Oral Tablet amoxicillin 875 mg-potassium clavulanate 125 mg tablet amoxicillin 875 mg-potassium clavulanate 125 mg tablet completed amoxici llin 875 MG / clavulanate 125 MG Oral Tablet [facility] ([facility]) gabapentin 300 MG Oral Capsule gabapentin 300 mg capsu le gabapentin 300 mg capsule completed gabapentin 300 MG Oral Capsule [facility] ([facility]) Azithromycin 250 MG Oral Tablet azithromycin 250 mg ta blet azithromycin 250 mg tablet completed azithromycin 25 0 MG Oral Tablet [facility] ([facility]) Sulfamethoxazole 800 MG / Trimethoprim 1 60 MG Oral Tablet sulfamethoxazole 800 mg-trimethoprim 160 mg tablet sulfamethoxazole 800 mg-trimethoprim 160 mg tablet completed sulfame thoxazole 800 MG / trimethoprim 160 MG Oral Tablet [facility] ([facility]) Prednisone 20 MG Oral Tablet prednisone 20 mg tablet TAKE ONE TABLET BY MOUTH THREE TIMES A DAY FOR 5 DAYS prednisone 20 mg tablet TAKE ONE TABLET BY MOUTH THREE TIMES A DAY FOR 5 DAYS completed prednisone 20 MG Oral Tablet [facility] ([facility]) Phenazopyridine hydrochloride 200 MG Oral Tablet phena zopyridine 200 mg tablet phenazopyridine 200 mg tablet complete d phenazopyridine hydrochloride 200 MG Oral Tablet AALIYAH ([facility]) Phenazopyridine hydrochloride 200 MG Oral Tablet phena zopyridine 200 mg tablet phenazopyridine 200 mg tablet complete d phenazopyridine hydrochloride 200 MG Oral Tablet AALIYAH ([facility]) Amoxicillin 875 MG / Clavulanate 125 MG Oral Tablet amoxicillin 875 mg-potassium clavulanate 125 mg tablet amoxicillin 875 mg-potassium clavulanate 125 mg tablet completed amoxici llin 875 MG / clavulanate 125 MG Oral Tablet AALIYAH ([facility]) cefdinir 300 MG Oral Capsule cefdinir 300 mg capsule cefdinir 30 0 mg capsule completed cefdinir 300 M G Oral Capsule [facility] ([facility]) Metronidazole 500 MG Oral Tablet metronidazole 500 mg tablet metronidazole 500 mg tablet completed metronidazol e 500 MG Oral Tablet [facility] ([facility]) Phenazopyridine hydrochloride 200 MG Oral Tablet phena zopyridine 200 mg tablet phenazopyridine 200 mg tablet complete d phenazopyridine hydrochloride 200 MG Oral Tablet AALIYAH ([facility]) Oseltamivir 75 MG Oral Capsule oseltamiv ir 75 mg capsule TAKE ONE CAPSULE BY MOUTH TWICE A DAY FOR 5 DAYS oseltamivir 75 mg capsule TAKE ONE CAPSU LE BY MOUTH TWICE A DAY FOR 5 DAYS completed oseltamivir 75 MG Oral Capsule [facility] ([facility]) valacyclovir 1000 MG Oral Tablet valacyclovir 1 gram t ablet valacyclovir 1 gram tablet completed valacyclovir 10 00 MG Oral Tablet AALIYAH ([facility]) benzonatate 200 MG Oral Capsule benzonatate 200 mg cap yared benzonatate 200 mg capsule completed benzonatate 20 0 MG Oral Capsule [facility] ([facility]) Amoxicillin 875 MG / Clavulanate 125 MG Oral Tablet amoxicillin 875 mg-potassium clavulanate 125 mg tablet amoxicillin 875 mg-potassium clavulanate 125 mg tablet completed amoxici llin 875 MG / clavulanate 125 MG Oral Tablet AALIYAH ([facility]) Ondansetron 4 MG Disintegrating Oral Tab let ondansetron 4 mg disintegrating tablet DISSOLVE ONE TABLET ON TONGUE EVERY 6 TO 8 HOURS NEEDED FOR NAUSEA AND VOMITING ondansetron 4 mg disintegrating tablet D ISSOLVE ONE TABLET ON TONGUE EVERY 6 TO 8 HOURS NEEDED FOR NAUSEA AND VOMITING completed ondansetron 4 MG Disintegrating Oral Tablet AALIYAH ([facility]) valacyclovir 1000 MG Oral Tablet valacyclovir 1 gram t ablet valacyclovir 1 gram tablet completed valacyclovir 10 00 MG Oral Tablet AALIYAH ([facility]) cefdinir 300 MG Oral Capsule cefdinir 300 mg capsule cefdinir 30 0 mg capsule completed cefdinir 300 M G Oral Capsule AALIYAH ([facility]) Prednisone 10 MG Oral Tablet prednisone 10 mg tablet prednisone 10 mg tablet completed prednisone 10 MG Oral Tablet AALIYAH ([facility]) Insurance Providers Payer name Policy type / Coverage type Policy ID Covered green party ID Covered green party's relationship to miller Policy Miller Plan Information [facility] PLAN [facility] [id number] SP [id number] EMEDNY [id number] SP [id number] [facility] PLAN [facility] [id number] SP [id number] Managed Care - [facility] Plan P [id number] S [id number] Medicaid S [id number] S [id number] [facility] O [id number] S [id number] [facility] AMERICHOICE XIX -O [id number] 18 [id number] [facility] [id number] SP [id number] Managed Care - [facility] Plan P [id number] S [id number] Cristobal John () Workers Compensation [id number] Self [id number] [facility] Medigap Part B [id number] Self [id number] Medicaid [place] Medigap Part B [id number] Self [id number] [facility] Plan Commercial [id number] Self [id number] Cristobal John () Workers Compensation [id number] Self [id number] [facility] Plan Medigap Part B [id number] Self [id number] Managed Care - [facility] P [id number] S [id number] Managed Care [facility] P [id number] S [id number] Medicaid S [id number] S [id number] [facility] Health Maintenance Organization ([facility]) [id number] Self [id number] MEDICAID [id number] SP [id number] [facility] COMMUNITY PLAN [facility] [id number] SP [id number] [facility] Health Maintenance Organization (HMO) [phone] Self [id number] [facility] COMMUNITY PLAN [facility] [id number] SP [id number] SELF PAY O UNAVAILABLE S UNAVAILA BLE [place] INS NO FAULT UNAVAILABLE SP UNAVAILABLE MEDICAID [id number] SP [id number] Problems, Conditions, and Diagnoses Code Display Name Description Problem Type Effective Dates Data Source(s) 275.09 Iron deficiency Iron deficiency 02/23/2020 10:5 2:[address] [facility] 530.81 Gastro-esophageal reflux disease without esophagitis Gastro-esophageal reflux disease without esophagitis 02/23/2020 10:52:[address] [facility] [id number] Finding of esophagus Finding of Esophagus Problem 02/23/2020 12:00:00 AM EDT [facility]) [id number] Gastroesophageal reflux disease without esophagitis Gastroesophageal Reflux Disease without Esophagitis Problem 02/23/2020 12:00:00 AM ED T [facility]) 81068915 Iron deficiency Iron Deficiency Problem 02/23/2020 12:0 0:00 AM EDT [facility] ([facility]) [id number] Gastroesophageal reflux disease without esophagitis Gastroesophageal Reflux Disease without Esophagitis Problem 02/23/2020 12:00:00 AM ED T [facility] ([facility]) 20330685 Iron deficiency Iron Deficiency Problem 02/23/2020 12:0 0:00 AM EDT [facility] ([facility]) 986205461 Gastroesophageal reflux disease without esophagitis Gastroesophageal Reflux Disease without Esophagitis Problem 02/23/2020 12:00:00 AM ED T [facility] ([facility]) [id number] Iron deficiency Iron Deficiency Problem 02/23/2020 12:0 0:00 AM EDT [facility]) 278.02 Overweight Overweight 01/18/2020 10:39:[address] [facility] 05461611 Allergic rhinitis, unspecified Allergic rhinitis, unsp ecified 01/18/2020 10:39:[address] [facility] Z00.00 Encounter for general adult medical examination without abnormal findings Encounter for general adult medical examination without abno rmal findings 01/18/2020 10:39:[address] [facility] [id number] Mild persistent asthma, uncomplicated Mi ld persistent asthma, uncomplicated 01/18/2020 10:39:[address] [facility] 333.94 Restless legs Restless legs 01/18/2020 10:39:[address] [facility] Z68.26 Body mass index (BMI) 26.0-26.9, adult B nino mass index [BMI] 26.0-26.9, adult 01/18/2020 10:39:[address] [facility] [id number] Asthma Asthma Problem 01/18/2020 12:00:00 AM ED T [facility] [facility]) [id number] SNOMED CT Concept SNOMED CT Concept Problem 01/17 12:00:00 AM EDT - 05/03/2020 12:00:00 AM EDT LEWIS ([facility] er) [id number] Uncomplicated mild persistent asthma Unc omplicated Mild Persistent Asthma Problem 01/18/2020 12:00:00 AM EDT [facility] ([facility]) [id number] Allergic rhinitis Allergic Rhinitis Problem 01/18/2020 12:00:00 AM EDT LEW[facility] ([facility]) [id number] Overweight Overweight Problem 01/18/2020 12:00:00 AM ED T LE[facility] ([facility]) [id number] SNOMED CT Concept SNOMED CT Concept Problem 01/17 12:00:00 AM EDT - 05/03/2020 12:00:00 AM EDT LEW[facility] ([facility] er) [id number] Uncomplicated mild persistent asthma Unc omplicated Mild Persistent Asthma Problem 01/18/2020 12:00:00 AM EDT LE[facility] ([facility]) [id number] Allergic rhinitis Allergic Rhinitis Problem 01/18/2020 12:00:00 AM EDT LE[facility] ([facility]) [id number] Overweight Overweight Problem 01/18/2020 12:00:00 AM ED T LE[facility] ([facility]) [id number] SNOMED CT Concept SNOMED CT Concept Problem 01/17 12:00:00 AM EDT - 05/03/2020 12:00:00 AM EDT [facility] ([facility]) [id number] Uncomplicated mild persistent asthma Unc omplicated Mild Persistent Asthma Problem 01/18/2020 12:00:00 AM EDT LEW[facility] ([facility]) [id number] Allergic rhinitis Allergic Rhinitis Problem 01/18/2020 12:00:00 AM EDT LE[facility] ([facility]) [id number] Overweight Overweight Problem 01/18/2020 12:00:00 AM ED T LE[facility] ([facility]) N76.0 [id number] Acute vaginitis Problem 11/10/2019 12:00:00 AM EDT [facility] ([facility]) N76.0 470497547 Acute vaginitis Problem 11/10/2019 12:00:00 AM EDT [facility] ([facility]) [id number] Clinical finding Clinical Finding Problem 017 12:00:00 AM EDT - 05/03/2020 12:00:00 AM EDT LE[facility] ([facility]) [id number] Clinical finding Clinical Finding Problem 017 12:00:00 AM EDT - 05/03/2020 12:00:00 AM EDT LE[facility] ([facility]) [id number] Clinical finding Clinical Finding Problem 017 12:00:00 AM EDT - 05/03/2020 12:00:00 AM EDT [facility] ([facility]) [id number] Personal history of nicotine dependence Personal history of nicotine dependence Diagnosis 10/10/2019 01:38:00 PM EDT [facility] [id number] Unspecified asthma, uncomplicated Unspecified as thma, uncomplicated Diagnosis 10/10/2019 01:38:00 PM EDT [facility] J189 Pneumonia, unspecified organism Pneumonia, unspecified organism Diagnosis 10/10/2019 01:38:00 PM EDT [facility] R0600 Dyspnea, unspecified Dyspnea, unspecified Diagnosis 10/10/2019 01:38:00 PM EDT [facility] Surgeries/Procedures Procedure Description Date Indications Data Source(s) MRI, abdomen, w/wo contrast 08/27/2020 12:00:00 AM EST AALIYAH ([facility]) PRESSURIZED/NONPRESSURIZED INHALATION TREATMENT 2019 12:00:00 AM EST MEDENT ([facility], [facility]) RADEX TOE MINIMUM 2 VIEWS 11/14/2019 12:00:00 AM EDT MEDENT ([facility] ) SMEAR, WET M[place], SALINE/INK 11/10/2019 12:00:00 AM ED T eCW1 ([facility]) RADEX TOE MINIMUM 2 VIEWS 10/24/2019 12:00:00 AM EDT MEDENT ([facility] ) FX Phalanx Excl GR Toe W/O Manipulation 10/17/2019 12: 00:00 AM EDT MED[facility] ([facility] ) RADEX TOE MINIMUM 2 VIEWS 10/17/2019 12:00:00 AM EDT MED[facility] ([facility] ) Results ID Date Data Source [id number] 08/21/2020 09:59:00 AM EST AALIYAH ([facility]) Name Value Range Interpretation Code Description Data Radha rce(s) Supporting Document(s) lipase 877 U/L 73-393 Above high normal Lipase LEWIS ([facility]) ID Date Data Source [id number] 08/21/2020 09:59:00 AM EST AALIYAH ([facility]) Name Value Range Interpretation Code Description Data Radha rce(s) Supporting Document(s) blood urea nitrogen 9 mg/dL 7-18 normal Blood Urea Nitro gen AALIYAH ([facility]) creatinine for GFR 0.64 mg/dL 0.55-1.30 normal Creatinine for GF R LEWIS ([facility]) glucose, fasting 91 mg/dL 70-100 normal Glucose, Fasting AT [facility] ([facility]) carbon dioxide level 23 mEq/L 21-32 normal Carbon Dioxide Level LEWIS ([facility]) glomerular filtration rate > 60.0 >60 normal Glomerula r Filtration Rate LEWIS ([facility]) potassium serum 3.7 mEq/L 3.5-5.1 normal Potassium Serum ATH ([facility]) sodium level 139 mEq/L 136-145 normal Sodium Level AALIYAH ([facility]) chloride level 108 mEq/L 98-107 Above high normal Chloride Level AALIYAH ([facility]) calcium level 8.5 mg/dL 8.5-10.1 normal Calcium Level AALIYAH ( [facility]) anion gap 8 mEq/L 8-16 normal Anion Gap AALIYAH ([facility]) ID Date Data Source [id number] 08/21/2020 09:59:00 AM EST AALIYAH ([facility]) Name Value Range Interpretation Code Description Data Radha rce(s) Supporting Document(s) ALT/SGPT 25 U/L 12-78 normal ALT/SGPT AALIYAH ([facility]) bilirubin,total 0.3 mg/dL 0.2-1.0 normal Bilirubin,total ATHE ([facility]) AST/SGOT 17 U/L 7-37 normal AST/SGOT AALIYAH ([facility]) alkaline phosphatase 80 U/L 45-117 normal Alkaline Phosph atase AALIYAH ([facility]) total protein 8.0 gm/dL 6.4-8.2 normal Total Protein AALIYAH ( [facility]) albumin 4.0 gm/dL 3.2-5.2 normal Albumin AALIYAH ([facility]) bilirubin,direct < 0.1 0.0-0.2 normal Bilirubin,direct AT [facility]) albumin/globulin ratio 1.2-2.2 Below low normal Albumin /globulin Ratio AALIYAH ([facility]) ID Date Data Source [id number] 08/21/2020 09:59:00 AM EST AALIYAH ([facility]) Name Value Range Interpretation Code Description Data Radha rce(s) Supporting Document(s) red blood count 4.48 10 4.00-5.40 normal Red Blood Count ATHE ([facility]) white blood count 7.9 10 4.0-10.0 normal White Blood Count AALIYAH ([facility]) hemoglobin 11.0 g/dL 12.0-15.5 Below low normal Hemoglobin AALIYAH ( [facility]) mean corpuscular hemoglobin 24.6 pg 27.0-33.0 Below low nor mal Mean Corpuscular Hemoglobin AALIYAH ([facility]) mean corpuscular HGB conc 30.7 g/dL 32.0-36.5 Below low lloyd l Mean Corpuscular HGB Conc AALIYAH ([facility]) mean corpuscular volume 79.9 fL 80.0-96.0 Below low normal Mean Corpuscular Volume AALIYAH ([facility]) hematocrit 35.8 % 36.0-47.0 Below low normal Hematocrit AALIYAH ( [facility]) red cell distribution width 16.2 % 11.5-14.5 Above high no rmal Red Cell Distribution Width AALIYAH ([facility]) neutrophils % 67.7 % 36.0-66.0 Above high normal Neutrophils % A THENA ([facility]) platelet count, automated 436 10 150-450 normal Platelet C ount, Automated AALIYAH ([facility]) lymph % 22.0 % 24.0-44.0 Below low normal Lymph % LEWIS ( [facility]) mono % 6.7 % 0.0-5.0 Above high normal Boundary % LEWIS ([facility]) baso % 1.3 % 0.0-1.0 Above high normal Baso % LEWIS ([facility]) immature granulocyte % 0.5 % 0-3.0 normal Immature Gran ulocyte % AALIYAH ([facility]) eos % 1.8 % 0.0-3.0 normal Eos % AALIYAH ([facility]) neutrophils # 5.3 10 1.5-8.5 normal Neutrophils # AALIYAH ( [facility]) mono # 0.5 10 0.0-0.8 normal Boundary # AALIYAH ([facility]) lymph # 1.7 10 1.5-5.0 normal Lymph # LEWIS ([facility]) nucleated red blood cell % 0.0 % 0-0 normal Nucleated Red Blood Cell % AALIYAH ([facility]) baso # 0.1 10 0.0-0.2 normal Baso # AALIYAH ([facility]) eos # 0.1 10 0.0-0.5 normal Eos # AALIYAH ([facility]) ID Date Data Source [id number] 08/21/2020 09:58:00 AM EST LEWIS ([facility]) Name Value Range Interpretation Code Description Data Radha rce(s) Supporting Document(s) pH,urine rfx 5.0 units 5.0-9.0 normal pH,urine Rfx [facility] ([facility]) color, urine rfx yellow yellow normal Color, Urine Rfx AT [facility] ([facility]) appearance, urine rfx clear clear normal Appearance, Ur ine Rfx LEWIS ([facility]) glucose, urine (UA) auto rfx negative negative normal Glucose, Urine (UA) Auto Rfx LEWIS ([facility]) specific gravity ur auto rfx 1.002-1.035 normal Specif ic [place] Ur Auto Rfx LEWIS ([facility]) ketone, urine auto rfx negative negative normal Ketone, Urine Auto Rfx LE[facility] ([facility]) protein, urine auto rfx negative negative normal Protein, Uri ne Auto Rfx LEWIS ([facility]) nitrite, urine auto rfx negative negative normal Nitrite, Uri ne Auto Rfx LE[facility]IS ([facility]) bilirubin, urine auto rfx negative negative normal Bilirubin, Urine Auto Rfx LE[facility]IS ([facility]) urobilinogen, urine auto rfx 0.2 mg/dL 0.0-2.0 normal Urobilinogen, Urine Auto Rfx LE[facility]IS ([facility]) blood, urine blood rfx negative negative normal Blood, Urine Blood Rfx LE[facility]IS ([facility]) WBC, urine auto rfx 1 /hpf 0-3 normal WBC, Urine Auto Rfx [facility] ([facility]) RBC, urine auto rfx 1 /hpf 0-3 normal RBC, Urine Auto Rfx [facility] ([facility]) leukocyte esterase ur auto rfx negative negative normal Leukocyte Esterase Ur Auto Rfx LE[facility]IS ([facility]) bacteria, urine auto rfx negative negative normal Bacteria, U rine Auto Rfx LE[facility] ([facility]) hyaline cast, urine auto rfx 0 /lpf 0-1 normal Hyaline Cast, Urine Auto Rfx [facility] ([facility]) mucus, urine rfx small negative normal Mucus, Urine Rfx AT [facility] ([facility]) squam epithelial cell ur aurfx 1 /hpf 0-6 normal Squam Epithelial Cell Ur Aurfx LEWIS ([facility]) ID Date Data Source [id number] 08/05/2020 11:18:00 AM EST [facility]) Name Value Range Interpretation Code Description Data Radha rce(s) Supporting Document(s) sars-cov-2 negative negative normal Sars-cov-2 LEWIS ([facility]) ID Date Data Source [id number] 08/05/2020 10:15:00 AM EST [facility] Name Value Range Interpretation Code Description Data Radha rce(s) Supporting Document(s) SARS coronavirus 2 RdRp gene [Presence] in Respiratory specimen by STEPHANIE with probe detection Not detected [facility] This lab was ordered by [facility] and reported by [facility]. ID Date Data Source [id number] 07/10/2020 12:00:00 AM EST [facility] Name Value Range Interpretation Code Description Data Radha rce(s) Supporting Document(s) SARS coronavirus 2 Ag Negative [facility] This lab was ordered by [facility] and reported by [facility]. ID Date Data Source [id number] 05/03/2020 11:21:00 AM EDT LEWIS ([facility]) Name Value Range Interpretation Code Description Data Radha rce(s) Supporting Document(s) Leukocytes - Leukocytes AALIYAH ([facility]) Specific [place] Specific [place] AT [facility]) Nitrite negative Nitrite AALIYAH ([facility]) Protein trace Protein LEWIS ([facility]) Urobilinogen negative Urobilinogen LEWIS ([facility]) pH Ph AALIYAH ([facility]) Blood 2+ Blood AALIYAH ([facility]) Color dark yellow Color AALIYAH ([facility]) Appearance clear Appearance AALIYAH ([facility]) Ketone - Ketone AALIYAH ([facility]) Bilirubin 1+ Bilirubin AALIYAH ([facility]) Glucose - Glucose AALIYAH ([facility]) ID Date Data Source [id number] 05/03/2020 11:00:00 AM EDT AALIYAH ([facility]) Name Value Range Interpretation Code Description Data Radha rce(s) Supporting Document(s) ID Date Data Source [id number] 05/03/2020 11:00:00 AM EDT AALIYAH ([facility]) Name Value Range Interpretation Code Description Data Radha rce(s) Supporting Document(s) ID Date Data Source [id number] 04/26/2020 09:28:[address] [facility] Name Value Range Interpretation Code Description Data Radha rce(s) Supporting Document(s) HCT 36.0 % 36.0-47.[address] [facility] HGB 10.6 g/dL 12.0-15.[address] [facility] MCH 29.4 G/DL pg 32.0-36.[address] [facility] MCHC 23.7 PG % 27.0-33.[address] [facility] PLATELETS 379 10 10*3/mm3 150-[address] [facility] RBC 4.47 10 10*6/mm3 4.00-5.[address] [facility] RDW 20.7 % 11.5-14.[address] [facility] WBC TOTAL 6.3 4.0-10.[address] [facility] ID Date Data Source [id number] 04/26/2020 09:28:[address] [facility] Name Value Range Interpretation Code Description Data Radha rce(s) Supporting Document(s) T3, TOTAL 98.8 ng/dL 60.0-181.0 N [facility] T4, FREE 0.77 ng/dL 0.76-1.46 N [facility] TSH 2.970 microintl units/mL 0.358-3.740 N [facility] ID Date Data Source [id number] 04/10/2020 10:28:00 AM EDT MEDENT ([facility], [facility]) Name Value Range Interpretation Code Description Data Radha rce(s) Supporting Document(s) Bacteria identified in Urine by Culture Laboratory test result [facility] ([facility], [facility]) <content>FULL REPORT IN LAB NOTES ([facility] a nd [facility]).</content>
<content></content>
<content>ORGANISM 1: ESCHERICHIA COLI</content>
<content></content>
<content>COLONY COUNT > 100,000</content>
<content></content>
<content></content>
<content>O RGANISM 1: ESCHERICHIA COLI</content>
<content></content>
<content> ESCHERICHIA COLI: REACTION</content>
<content>TRIMETHOPRIM/SULFAMETHOXAZOLE IV 160mg TMP & 800mg SMXq6h <=20 S</content>
<content> TRIMETHOPRIM/SULFAMETHOXAZOLE PO Bactrim DS Bid <=20 S</content>
<content>AMPICILLIN IV 500mg q6h >=32 R</content>
<content>AMPICILLIN PO 500mg q6h fasting >=32 R</content>
<content>GENTAMICIN IV 80mg q8h <=1 S</content>
<content>NITROFURANTOIN PO 100mg BID <=16 S</content>
<content>CEFAZOLIN IV 1gm q8h >=64 R</content>
<content>LEVOFLOXACIN IV 500mg qd >=8 R</content>
<content>LEVOFLOXACIN PO 250mg qd >=8 R</content>
<content>LEVOFLOXACIN PO 500mg qd >=8 R</content>
<content>TOBRAMYCIN IV 80mg q8h <=1 S</content>
<content> CEFTRIAXONE IV 1gm q24h <=1 S</content>
<content>CEFTAZIDIME IV 1gm q8h <=1 S</content>
<content>AMPICILLIN/SULBACTAM IV 1.5g q6h >=32 R</content>
<content>PIPERACILLIN/TAZOBACTAM IV 2.25 gm q6h 64 I</content>
<content>AZTREONAM IV 1gm q8h <=1 S</content>
<content>ERTAPENEM IV 1gm qd <=0.5 S</content>
<content> MEROPENEM IV 1 gm q8h <=0.25 S</content>
<content>MEROPENEM IV 500 mg q8h <=0.25 S</content>
<content>TIGECYCLINE IV 50mg q12h <=0.5 S</content>
<content>CEFEPIME IV 1 gm q12h <=1 S</content>
<content>CEFEPIME IV 2 gm q12h <=1 S</content>
<content>EXTD BRD SPCTRM BETA LACTAMASE IV NEGATIVE FOR ESBL</content>
<content></content> ID Date Data Source [id number] 02/23/2020 10:02:[address] [facility] Measurements & CalculationsHeight: 65 inches (5 ft. 5 in.) 165.10 cm Weight: 154 pounds 6 oz. 70.17 kg Body Mass Index (BMI): 25.78BMI Interpretation: OverweightBody Surface Area (BSA): 1.77Weight Management Education Done (Nutrition/Physical Activity)Vital SignsTemperature: 96.6F 35.89C tympanic Pulse Rate: 96 beats/minuteRespiratory Rate: 18 respirations/minuteBlood Pressure: 119/78 left arm sitting automaticO2 Saturation: 100% Vital Signs performed by: Bri Gore LPN, February 23, 2020 10:02 AMInitial Intake Information From: patientRoom #: 1Infectious Disease / Travel ScreeningRecent travel for you or any close contacts? NoHave you had any close contact with anyone diagnosed with or under investigation for COVID-19 (coronavirus)? NoFever? NoRespiratory symptoms: cough, cold, congestion, shortness of breath, difficulty breathing? NoLoss of smell? NoLoss of taste? No Smoking, Tobacco, Vaping or Smoke Exposure StatusSmoke Status: current every day smokerTobacco Use: YesAdv to Quit: YesDo you vape? NoPassive Smoke Exposure: YesMenstrual HistoryLast Menstrual Period (LMP): 02/20/2020Any possibility of ? NoHealthcare HistorySince your last office visit...Have you been admitted to the hospital? NoHave you been to an emergency room (ER) or urgent care clinic? NoHave you seen another healthcare provider? NoHave you seen a dentist? NoIntake performed by: Bri Gore LPN, February 23, 2020 10:07 AMRate Your HealthIn general, would you say your health is? Very GoodPain AssessmentAre you currently having any pain which... You would like your provider to address? No Affects your activity level? NoDepression Screening - PHQ-2Over the last two weeks, have you... Had little interest or pleasure in doing things? Not at all Been feeling down, depressed, or hopeless? Not at all PHQ-2 Score: 0Anxiety Screening - MEENAKSHI-2Over the last two weeks, have you been... Feeling nervous, anxious, or on edge? Not at all Unable to stop or control worrying? Not at all MEENAKSHI-2 Score: 0Food InsecurityWithin the past year...Did you worry whether your food would run out before you got money to buy more? NoWas there a time when the food you bought didn't last and you didn't have money to get more? NoScreening, Brief Intervention, & Referral to Treatment (SBIRT)Pre-Screening Questions How many times have you have 4 or more drinks in a day? 0How many times have you used an illegal drug or used a prescription medication for a non-medical reason? 0Performed by: Bri Gore LPN, February 23, 2020 10:07 AMPatient History Medical History:Asthmaheart murmurAutoimmune thyroidlow back painshingles 01/2020Surgical History: section x 6tubal ligation 05/2016TonsillectomyappendixFamily History:Cancer - Breast (Maternal Grandmother)Cancer - Prostate (Maternal Grandfather)aunt, breast cancerHeart disease (Mother, Unknown Relative)Social/Personal History: A dvised to Quit/Tobacco Education: YesChief Complaintfollow-up visitHistory of Present Illness (HPI)34 yo female pt presents for asthma recheck. Pt states she is currently on her period but it is very heavy and has some concerns. States usually lasts 3 days and is light. Last night she was up every couple hours to change a pad and tampon. Pt admits to stress at work. Pt states since last visit she has had shingles, diagnosed at the ER, possible chicken pox at age 1 on her ear. Pt wondering about getting the shingles vaccine. Pt reports heartburn acid reflux of the last few months. Has been taking OTC Prilosec with some relief, but has been taking it intermittently. Problem ReviewProblem List was reviewed and/or updated during this visit.Medication Reconciliation & ReviewMedication List was reviewed and/or updated during this visit, including review of any sdof-ioy-yynlwpy medications, herbal therapies, and/or supplements.Allergy ReviewAllergy List was reviewed and/or updated during this visit. Patient has no known allergies.Adult Preventive CareScreening Tobacco Screening: Smoking Status: current every day smoker (02/23/2020) Tobacco Use: Currently (02/23/2020) Advised to Quit: Yes (02/23/2020)Labs/Meds/Other Counseling-Nutrition and Physical Activity:BMI Interpretation: Overweight (02/23/2020) Counseling: Done (02/23/2020) Physical Activity: Done (02/23/2020)Review of Systems General: Denies loss of appetite, chills, dizziness, fatigue, fever, headache, feeling ill. Cardiovascular: Denies chest pain, palpitations, feeling faint. Respiratory: Denies cough, difficulty b reathing, shortness of breath. Gastrointestinal: Complains of heartburn. Denies nausea, vomiting, diarrhea, pain or discomfort, blood in stool, black or tarry stools. Genitourinary: Complains of see HPI, heavy menstrual period. Denies pelvic pain. Skin: Complains of see HPI. Neurologic: Denies weakness, numbness/tingling, feeling faint. Physical ExamGeneral Appearance: well nourished, well hydrated, no acute distressEyes, External: conjunctivae and lids normal, EOMIRespiratory, Auscultation: clear to auscultation bilaterally; no rales, rhonchi, or wheezesCardiovascular, Auscultation: S1, S2 audible; no murmur, rub, or gallop; RRRPeripheral Circulation: no clubbing, cyanosis, edema, or varicositiesAbdomen: soft, non-tender, no masses, bowel sounds normalGait & Station: normalOrientation: oriented to time, place, and personJudgment & Insight: intactRate Your HealthIn general, would you say your health is? Very GoodAssessment & Plan Problems:Added: Iron deficiency (ICD-275.09) (BGD50-H98.1) Assessment: Instructions: Ferrous gluconate, start once daily. Increase to twice daily if tolerated. Call for new Rx. Colace as needed for constipation.Gastro-esophageal reflux disease without esophagitis (ICD-530.81) (GMG30-L65.9) Assessment: Instructions: Omeprazole daily x 8 weeks. Low a marvin diet, frequent small meals. Reduce stress as able.Assessed:Nontoxic diffuse goiter (IWQ96-U83.0) Assessment: Instructions: Appears to be autoimmune thyroid. Ultrasound ordered to look for nodules. Consider endocrinology referral if labs become abnormal or nodule is present.Chronic thyroiditis (ICD- 245.8) (XRP07-A20.5) Assessment: Instructions: As above.Chronic low back pain (ICD-724.2) (TLN95-X72.5) Assessment: Instructions: Increase gabapentin to as needed daily dose as well, for breakthrough back and leg pain. Tolerating well.Restless legs (ICD-333.94) (IBD69-P34.81) Assessment: Instructions: As above.Anemia (ICD-285.9) (ZSV23-Z20.9) Assessment: Inst ructions: As above.Mild persistent asthma, uncomplicated (QDI58-M71.30) Assessment: Instructions: Stable.Removed:Other specified nontoxic goiter (LEF53-O14.8)Patient Instructions/Care Plan: Iron deficiency: Ferrous gluconate, start once daily. Increase to twice daily if tolerated. Call for new Rx. Colace as needed for constipation.Gastro-esophageal reflux disease without esophagitis: Omeprazole daily x 8 weeks. Low a marvin diet, frequent small meals. Reduce stress as able.Nontoxic diffuse goiter: Appears to be autoimmune thyroid. Ultrasound ordered to look for nodules. Consider endocrinology referral if labs become abnormal or nodule is present.Chronic thyroiditis: As above.Chronic low back pain: Increase gabapentin to as needed daily dose as well, for breakthrough back and leg pain. Tolerating well.Restless legs: As above.Anemia: As above.Mild persistent asthma- uncomplicated: Stable. Plan developed in collaboration with patient and/or familyMedications:COLACE 100 MG ORAL CAP SULEFERROUS GLUCONATE 324 (37.5 FE) MG ORAL TABLETOMEPRAZOLE 20 MG ORAL TABLET DELAYED RELEASE DISINTEGRATINGCETIRIZINE HCL 10 MG ORAL TABLETARNUITY ELLIPTA 100 MCG/ACT INHALATION AEROSOL POWDER BREATH ACTIVATEDALBUTEROL SULFATE HFA 108 (90 BASE) MCG/ACT INHALATION AEROSOL SOLUTIONGABAPENTIN 400 MG ORAL CAPSULEMedication Changes:Refilled:GABAPENTIN 400 MG ORAL CAPSULE-1 tab po BID prn Qty: 60[Capsule] Refills: 5 Method: ElectronicNew Prescription:OMEPRAZOLE 20 MG ORAL TABLET DELAYED RELEASE DISINTEGRATING-Take 1 tablet po QAM on an empty stomach with water Qty: 30[Tablet] Refills: 1 Method: ElectronicFERROUS GLUCONATE 324 (37.5 FE) MG ORAL TABLET-Take 1 tablet po daily Qty: 30[Tablet] Refills: 1 Method: ElectronicCOLACE 100 MG ORAL CAPSULE-Take 1 capsule po TID prn constipation Qty: 90[Capsule] Refills: 1 Method: ElectronicChanged:From: ORAL GABAPENTIN 400 MG ORAL CAPSULE Qty: [id number] Refills: 60[Capsule] To: GABAPENTIN 400 MG ORAL CAPSULE-1 tab po BID prn Qty: 60[Capsule] Refills: 5Allergies:No Known Allergies (updated 02/23/2020) Orders:Ultrasound-Thyroid [CPT-01951] Adult - Ofc Vst, EST, Level III [CPT-98395] Follow-Up Return to clinic: in 2 months for follow upAdditional Follow-Up: anemiaClinical Visit Summary CompletedMedications:GABAPENTIN 400 MG ORAL CAPSULE (GABAPENTIN) 1 tab po BID prn #60[Capsule] x 5 Route:ORAL Entered and Authorized by: Anthony SERRANO Method used: Electronically to [facility] (retail) [address] [place] [address] Note to Pharmacy: Route: ORAL; Indications: CHRONIC LOW BACK PAIN;RESTLESS LEGS RxID: [id number] 100 MG ORAL CAPSULE (DOCUSATE SODIUM) Take 1 capsule po TID prn constipation #90[Capsule] x 1 Route:ORAL Entered and Authorized by: Anthony SERRANO Method used: Electronically to [facility] (retail) [address] [place] [address] Note to Pharmacy: Route: ORAL; Indications: IRON DEFICIENCY RxID: [id number] GLUCONATE 324 (37.5 FE) MG ORAL TABLET (FERROUS GLUCONATE) Take 1 tablet po daily #30[Tablet] x 1 Route:ORAL Entered and Authorized by: Anthony SERRANO Method used: Electronically to [facility] (retail) [address] [place] [address] Note to Pharmacy: Route: ORAL; Indications: IRON DEFICIENCY RxID: [id number] 20 MG ORAL TABLET DELAYED RELEASE DISINTEGRATING (OMEPRAZOLE) Take 1 tablet po QAM on an empty stomach with water #30[Tablet] x 1 Route:ORAL Entered and Authorized by: Anthony SERRANO Method used: Electronically to [facility] (retail) [address] [place] [address] Fax: Note to Pharmacy: Route: ORAL; Indications: GASTRO-ESOPHAGEAL REFLUX DISEASE WITHOUT ESOPHAGITIS RxID: [id number] signed by Anthony SERRANO on 03/13/2020 at 10:09 AM Name Value Range Interpretation Code Description Data Radha rce(s) Supporting Document(s) ID Date Data Source [id number] 01/27/2020 10:37:[address] [facility] Name Value Range Interpretation Code Description Data Radha rce(s) Supporting Document(s) CRP < 0.30 MG/DL mg/dL 0.00-0.30 [facility] ID Date Data Source [id number] 01/27/2020 10:37:[address] [facility] Name Value Range Interpretation Code Description Data Radha rce(s) Supporting Document(s) ESR 9 mm/hr 0-[address] [facility] HCT 31.7 % 36.0-47.[address] [facility] HGB 9.1 g/dL 12.0-15.[address] [facility] MCH 28.7 G/DL pg 32.0-36.[address] [facility] MCHC 20.8 PG % 27.0-33.[address] [facility] PLATELETS 432 10 10*3/mm3 150-[address] [facility] RBC 4.38 10 10*6/mm3 4.00-5.[address] [facility] RDW 15.6 % 11.5-14.[address] [facility] WBC TOTAL 9.8 4.0-10.[address] [facility] ID Date Data Source [id number] 01/19/2020 09:19:[address] [facility] Name Value Range Interpretation Code Description Data Radha rce(s) Supporting Document(s) HCT 33.8 % 36.0-47.[address] [facility] HGB 9.4 g/dL 12.0-15.[address] [facility] MCH 27.8 G/DL pg 32.0-36.[address] [facility] MCHC 20.7 PG % 27.0-33.[address] [facility] PLATELETS 368 10 10*3/mm3 150-[address] [facility] RBC 4.54 10 10*6/mm3 4.00-5.[address] [facility] RDW 15.9 % 11.5-14.[address] [facility] WBC TOTAL 6.1 4.0-10.[address] [facility] ID Date Data Source [id number] 01/19/2020 09:19:[address] [facility] Name Value Range Interpretation Code Description Data Radha rce(s) Supporting Document(s) T3, TOTAL 163.7 ng/dL 60.0-181.[address] [facility] VIT D25 TOT 28.2 ng/mL 30.0-100.0 L [facility] BG FASTING 86 mg/dL 70-100 N [facility] Health T4, FREE 1.41 ng/dL 0.76-1.46 N [facility] TSH 0.005 microintl units/mL 0.358-3.740 L [facility] ID Date Data Source [id number] 01/18/2020 10:01:[address] [facility] Measurements & CalculationsHeight: 65 inches (5 ft. 5 in.) 165.10 cm Weight: 157 pounds 6 oz. 71.54 kg Body Mass Index (BMI): 26.28BMI Interpretation: OverweightBody Surface Area (BSA): 1.79Vital SignsTemperature: 97.0F 36.11C tympanic Pulse Rate: 79 beats/minuteRespiratory Rate: 18 respirations/minuteBlood Pressure: 129/78 left arm sitting automaticO2 Saturation: 98% Vital Signs performed by: Bri Gore LPN, January 18, 2020 10:01 AMInitial Intake Information From: patientRoom #: 1Infectious Disease / Travel ScreeningRecent travel for you or any close contacts? NoHave you had any close contact with anyone diagnosed with or under investigation for COVID-19 (coronavirus)? NoFever? NoRespiratory symptoms: cough, cold, congestion, shortness of breath, difficulty breathing? NoLoss of smell? NoLoss of taste? NoSmoking, Tobacco, Vaping or Smoke Exposure StatusSmoke Status: current every day smokerTobacco Use: YesAdv to Quit: YesDo you vape? NoPassive Smoke Exposure: YesMenstrual HistoryLast Menstrual Period (LMP): 12/22/2019Any possibility of ? NoHealthcare HistorySince your last office visit...Have you been admitted to the hospital? NoHave you been to an emergency room (ER) or urgent care clinic? Yes - throatEmergency room (ER) or urgent care date reported today : 12/29/2019Have you seen another healthcare provider? NoHave you seen a dentist? YesIntake performed by: Bri Gore LPN, January 18, 2020 10:04 AMRate Your HealthIn general, would you say your health is? Very GoodPain AssessmentAre you currently having any pain which... You would like your provider to address? No Affects your activity level? NoDepression Screening - PHQ-2Over the last two weeks, have you... Had little interest or pleasure in doing things? Not at all Been feeling down, depressed, or hopeless? Not at all PHQ-2 Score: 0Anxiety Screening - MEENAKSHI-2Over the last two weeks, have you been... Feeling nervous, anxious, or on edge? Not at all Unable to stop or control worrying? Not at all MEENAKSHI-2 Score: 0Food InsecurityWithin the past year...Did you worry whether your food would run out before you got money to buy more? NoWas there a time when the food you bought didn't last and you didn't have money to get more? NoPRAPARE Sociodemographic Characteristics Race: ite Ethnicity: Not or Preferred Language: EnglishFamily and Home Address: [address] [place] [address] What is your housing situation today? I have housing Are you worried about losing your housing? NoMoney and Resources In the past year, have you or any family members you live with been unable to get any of the following when it was really needed? Denies Insecurity: food, utilities, clothing, child day care provider, phone, legal services, otherWithin the past year did you worry whether your food would run out before you got money to buy more? NoWithin the past year was there a time when the food you bought didn't last and you didn't have money to get more? NoIn the past year, have you had trouble affording costs associated with health insurance (such as deductibles, co-payments, etc.)? NoScreening, Brief Intervention, & Referral to Treatment (SBIRT)Pre-Screening Questions How many times have you have 4 or more drinks in a day? 0How many times have you used an illegal drug or used a prescription medication for a non-medical reason? 0Performed by: Bri Gore LPN, January 18, 2020 10:06 AMPatient History Medical History:Asthmaheart murmorSurgical History: section x 6TonsillectomyappendixFamily History:Cancer - Breast (Maternal Grandmother)Cancer - Prostate (Maternal Grandfather)aunt, breast cancerHeart disease (Mother, Unknown Relative)Social/Personal History: Advised to Quit/Tobacco Education: YesChief Complaintannual examHistory of Present Illness (HPI)34 yo female pt presents for annual exam. Pt states she ran out of gabapentin a while ago, states her restless legs syndrome has been acting up since she has been back to work. Pt has been seen at [facility] multiple times for sick visits, bronchitis and pneumonia. Requests albuterol rescue inhaler. Hx of asthma, was hospitalized as a child for asthma frequently. Had been asthma free since the age of 19, aside from sick visits. Pt now feels her asthma is bothering her at work with exertion and even when out walking. Admits to environmental allergies, has had postnasal drip for nearly 1 month, not taking any allergy medication. HPI performed by: Anthony SERRANO, January 18, 2020 10:20 AMTransitions of Care InboundProblem ReviewProblem List was reviewed and/or updated during this visit.Medication Reconciliation & ReviewMedication List was reviewed and/or updated during this visit, including review of any ohtn-afl-bdilwqr medications, herbal therapies, and/or supplements.Allergy ReviewAllergy List was reviewed and/or updated during this visit. Patient has no known allergies.Adult Preventive CareScreening Tobacco Screening: Smoking Status: current every day smoker (01/18/2020) Tobacco Use: Currently (01/18/2020) Advised to Quit: Yes (01/18/2020)Review of Systems General: Denies loss of appetite, chills, dizziness, fatigue, fever, headache, feeling ill. Eyes: Denies blurring of vision, double vision. Ears/Nose/Throat: Complains of runny nose. Denies earache, decreased hearing, nasal congestion, sore throat, tooth pain, swollen glands. Cardiovascular: Denies chest pain, palpitations, feeling faint, peripheral edema. Respiratory: Complains of see HPI, shortness of breath. Denies cough, excessive sputum, coughing up blood, wheezing, chest pain. Gastrointestinal: Denies nausea, vomiting, diarrhea, pain or discomfort. Genitourinary: Denies pain with urination, burning with urination, blood in urine. Musculoskeletal: Complains of leg pain. Denies back pain, joint pain, stiffness, recent injury. Skin: Denies rash, redness, suspicious lesions. Neurologic: Denies weakness, feeling faint. Psychiatric: Denies depression, anxiety. Physical ExamGeneral Appearance: well nourished, well hydrated, no acute distressEyes, External: conjunctivae and lids normal, EOMIExternal Ears: normal, no lesions or deformitiesHearing: grossly intactOtoscopy: canals clear, tympanic membranes intact, no fluid, light reflex intact bilaterallyExternal Nose: normal, no lesions or deformitiesNasal: nares patent, turbinates slightly edematousLips/Teeth/Gums: no gingival inflammation, no labial lesionsPharynx: tongue normal, posterior pharynx without erythema or exudate, no thrush/aphthous ulcerNeck: supple, no masses, trachea midline, full range of motion of neckThyroid: diffuse soft goiter without noduleRespiratory, Auscultation: clear to auscultation bilaterally; no rales, rhonchi, or wheezesRespiratory, Effort: no intercostal retractions or use of accessory musclesCardiovascular, Auscultation: S1, S2 audible; no murmur, rub, or gallop; RRRPeripheral Circulation: no clubbing, cyanosis, edema, or varicositiesAbdomen: soft, non- tender, no masses, bowel sounds normalGait & Station: normalSkin, Inspection: no rashes, lesions, or ulcerationsOrientation: oriented to time, place, and personMood & Affect: no depression, anxiety, or agitationJudgment & Insight: intactCare Management Plan Transitions of CareInboundRate Your HealthIn general, would you say your health is? Very GoodAssessment & Plan Problems:Added: Encounter for general adult medical examination without abnormal findings (QVN60-Z78.00) Assessment: Instructions: Recommend annual medical appointments. Recommend routine dental and vision care. Recommend influenza vaccines annually and tetanus boosters every 10 years.Overweight (ICD-278.02) (RPK19-Z72.3) Assessment: Pt taking labs to outside facility. Instructions: Fasting labs have been ordered for you today. When labs are drawn, please ensure that you have had nothing to eat or drink for 8-10 hours prior to the blood drawn. Water or black coffee is OK to have before the blood draw.Allergic rhinitis, unspecified (AVW16-Y91.9) Assessment: Instructions: Start Cetirizine daily. If symptoms persist, will consider adding Singulair at next appointment.Mild persistent asthma, uncomplicated (THW11-L10.30) Assessment: Instructions: Rescue albuterol inhaler refilled. Recommend daily controller inhaler to improve daily symptoms. Do not believe that going without a mask is a safe option at work, especially due to your asthma.Changed:From: Dx of Paresthesia (ICD-782.0) (ASF48-D46.2) To: Restless legs (ICD-333.94) (SSX40-Y39.81)From: Dx of BMI 24.0-24.9 (ICD-V85.1) (GJV95-B51.24) To: Body mass index [BMI] 26.0-26.9, adult (ICD-V85.22) (VSV84-E40.26)Assessed:Body mass index [BMI] 26.0-26.9, adult (ICD-V85.22) (DPF28-T25.26) Assessment: Instructions: Recommend healthy lifestyle. Encourage portion control, healthy food choices, and routine physical activity. Recommendation is for 150 minutes throughout the week of cardiovascular exercise.Nontoxic diffuse goiter (ICD10- E04.0) Assessment: Instructions: Update thyroid labs.Anemia (ICD-285.9) (HKT55-F95.9) Assessment: Instructions: Update labs.Restless legs (ICD-333. 94) (RRM53-E91.81) Assessment: Instructions: Resume prior Gabapentin at bedtime. Caution regarding grogginess.Removed:Menorrhagia (ICD-626.2) (ICD10- N92.0), Endocrine/metabolic screening (YSO46-T27.29), Hyperlipidemia screening (KLA46-X68.220), Encounter for general adult medical examination WITH abnormal findings (over 18) (ICD-V70.0) (DRE55-P50.01)Patient Instructions/Care Plan: Encounter for general adult medical examination without abnormal findings: Recommend annual medical appointments. Recommend routine dental and vision care. Recommend influenza vaccines annually and tetanus boosters every 10 years.Overweight: Fasting labs have been ordered for you today. When labs are drawn, please ensure that you have had nothing to eat or drink for 8-10 hours prior to the blood drawn. Water or black coffee is OK to have before the blood draw.Body mass index [BMI] 26.0-26.9- adult: Recommend healthy lifestyle. Encourage portion control, healthy food choices, and routine physical activity. Recommendation is for 150 minutes throughout the week of cardiovascular exercise.Nontoxic diffuse goiter: Update thyroid labs.Allergic rhinitis- unspecified: Start Cetirizine daily. If symptoms persist, will consider adding Singulair at next appointment.Mild persistent asthma- uncomplicated: Rescue albuterol inhaler refilled. Recommend daily controller inhaler to improve daily symptoms. Do not believe that going without a mask is a safe option at work, especially due to your asthma.Anemia: Update labs.Restless legs: Resume prior Gabapentin at bedtime. Caution regarding grogginess. Plan developed in collaboration with patient and/or familyMedications:CETIRIZINE HCL 10 MG ORAL TABLETALBUTEROL SULFATE HFA 108 (90 BASE) MCG/ACT INHALATION AEROSOL SOLUTIONGABAPENTIN 400 MG ORAL CAPSULEMedication Changes:New Prescription:ALBUTEROL SULFATE HFA 108 (90 BASE) MCG/ACT INHALATION AEROSOL SOLUTION-Take 2 puffs oral inhalation q 4 hrs prn wheezing or shortness of breath Qty: 1[Inhaler] Refills: 5 Method: ElectronicFLOVENT HFA 44 MCG/ACT INHALATION INHALER-Two oral inhalation puffs twice daily, rinse mouth after use Qty: 1[Inhaler] Refills: 2 Method: ElectronicCETIRIZINE HCL 10 MG ORAL TABLET-Take 1 tablet po daily Qty: 90[Tablet] Refills: 3 Method: ElectronicAllergies:No Known Allergies (updated 01/18/2020) Orders:COMP METABOLIC PANEL [CPT-33348] CBC W/DIFF [CPT-42616] LIPID PANEL [CPT-54235] TSH [CPT-46884] T-4 free [CPT-63996] Vitamin D 250H Unspecified [CPT-47742] T3 Total [CPT-89297] Thyroid Peroxidase Antibody [CPT_86376] Thyroglobulin antibody [CPT- 64399] Preventive, New, (18-39) [CPT-96190] Follow-Up Return to clinic: in 6 weeks for follow upAdditional Follow-Up: asthma recheckClinical Visit Summary CompletedMedications:CETIRIZINE HCL 10 MG ORAL TABLET (CETIRIZINE HCL) Take 1 tablet po daily #90[Tablet] x 3 Route:ORAL Entered and Authorized by: Anthony SERRANO Method used: Electronically to [facility] (retail) [address] [place] [address] Note to Pharmacy: Route: ORAL; In dications: ALLERGIC RHINITIS, UNSPECIFIED;MILD PERSISTENT ASTHMA, UNCOMPLICATED RxID: [id number] HFA 44 MCG/ACT INHALATION INHALER (FLUTICASONE PROPIONATE HFA) Two oral inhalation puffs twice daily, rinse mouth after use #1[Inhaler] x 2 Route:INHALATION Entered and Authorized by: Anthony SERRANO Method used: Electronically to [facility] (retail) [address] [place] [address] Note to Pharmacy: Route: INHALATION; Indications: ALLERGIC RHINITIS, UNSPECIFIED;MILD PERSISTENT ASTHMA, UNCOMPLICATED RxID: [id number] SULFATE HFA 108 (90 BASE) MCG/ACT INHALATION AEROSOL SOLUTION (ALBUTEROL SULFATE) Take 2 puffs oral inhalation q 4 hrs prn wheezing or shortness of breath #1[Inhaler] x 5 Route:INHALATION Entered and Authorized by: Anthony SERRANO Method used: Electronically to [facility] (retail) [address] [place] [address] Note to Pharmacy: Route: INHALATION; Indications: ALLERGIC RHINITIS, UNSPECIFIED;MILD PERSISTENT ASTHMA, UNCOMPLICATED RxID: [id number] signed by Anthony SERRANO on 02/04/2020 at 1:20 PM Name Value Range Interpretation Code Description Data Radha rce(s) Supporting Document(s) ID Date Data Source [id number] 12/29/2019 10:25:00 AM EDT [facility] ([facility]) Name Value Range Interpretation Code Description Data Radha rce(s) Supporting Document(s) Coronavirus 2019 Nasopharygeal Laboratory test result [facility] ([facility]) This test was developed and its performa nce characteristics determined by [facility]. This test has not been FDA cleared [...] detected) result in this assay. Performed at: [facility] Lab[address] [id number] Sports Therapist: Rayne Lieberman MD, Phone: [phone] Not Detected ID Date Data Source [id number] 12/29/2019 10:25:00 AM EDT [facility] Name Value Range Interpretation Code Description Data Radha rce(s) Supporting Document(s) SARS CORONAVIRUS 2 RNA [facility] This lab was ordered by [facility] and reported by [facility]. ID Date Data Source [id number] 12/29/2019 10:21:00 AM EDT [facility] ([facility]) Name Value Range Interpretation Code Description Data Radha rce(s) Supporting Document(s) Bacteria identified in Throat by Culture Laboratory test result [facility] ([facility]) Rx Cefdinir ID Date Data Source CHGCTV - CHLAMYDIA, GC & TRICH AMP (Microbiology) 11/10/2019 12:00:00 AM EDT [facility] ([facility]) Name Value Range Interpretation Code Description Data Radha rce(s) Supporting Document(s) NOT DETECTED NEGATIVE Trichomonas vaginalis ( AMP) [facility] ([facility]) ID Date Data Source [id number] 10/12/2019 09:28:00 AM EDT [facility] [address] [place] [address] PHONE: [phone] FAX: [phone] Name .................. : YANCY SAMAYOA Chery Acct Number.................. : [id number] ROOM. ................. : TR-07 Number ................... : [id number] Stay type ............. : E/R Discharge Date......... ... : 10/10/19 Admit Date ......... : 10/10/19 Admit Phys .................... : GRIS DANE Date of ....... : 1985 Family Phys ................... : [employer] Phone .................. : [phone] Age ................................ : 34 Film# .................. .:[id number] Sex ................................. : F Unsigned transcriptions are preliminary reports and do not represent a medical or legal document CHEST PORTABLE [id number] COMPLETE:10/10/19 14:46 [facility] [id number] Reason(s): w orsening SOB, tachypnea PORTABLE CHEST X-RAY: COMPARISON: None available. FINDINGS: There is no acute consolidation or congestive heart failure. There is mild increased markings at the right base and an infiltrate is suggested. Correlate clinically and consider PA and lateral radiographs of the chest when the patient is stable. If there is concern for COVID-19, CT scanning should be considered. The upper spine is slightly angled to the left. IMPRESSION: Findings suggest a right lower lobe infiltrate. Suggest follow up imaging if clinically warranted. Electronically Reviewed and Signed By Fili Ramirez MD , 10/12/19 09:28, AML Transcribe Initials: ADRIANA , Transcribe Date: 10/10/19 23:44, Dictation Date: Copy for: GRIS Hodge via fax Copy for: BENY NUNO via fax Copy for: EMERGENCY DEPT via modem Copy for: 710 MED REC DISCHARGED Page 1 of 1 Name Value Range Interpretation Code Description Data Radha rce(s) Supporting Document(s) ID Date Data Source [id number] 10/12/2019 08:42:00 AM EDT [facility] [address] [place] [address] PHONE: [phone] FAX: [phone] Name ..............: YANCY SAMAYOA Chery Acct Number ...........................: [id number] ROOM. ............: TR-07 MR Number ............................: [id number] Stay type.........: E/R Discharge Date...............:10/10/19 Admit Date .....: 10/10/19 Admit Phys .............................: GRIS DANE Date of ..: 1985 Family Phys ...........................: BENY CO Phone..............: [phone] Age.................................:34 Film# ...............:[id number] Sex.................................:F Unsigned transcriptions are preliminary reports and do [place] [id number] COMPLETE:10/11/19 01:02 T 46100 Please See Scanned Results. Name Value Range Interpretation Code Description Data Radha rce(s) Supporting Document(s) ID Date Data Source [id number] 10/10/2019 01:38:00 PM EDT [facility] 1 OrderSheet [facility] Emergency Department [address] [place] [address] Phone #: [phone] 10/10/2019 13:32 Patient: YAO HAINES Sex: F : 1985 Age: 34yWEIGHT:65.7 kg HEIGHT:63 inches BMI:25.7 STATUS:NoALLERGIES: No Known Drug AllergyCHIEF COMPLAINT: dyspneaDIAGNOSIS: PneumoniaLAB ORDERSOrder Description Priority Entered Acknowledged InitialedBNP STAT 14:00 10/10/2019 14:16 Keenan SERRANO; Kathie RUTHERFORDC w Diff STAT 14:00 10/10/2019 14:16 Keenan SERRANO; Kathie GODWINCMP STAT 14:00 10/10/2019 14:16 Keenan SERRANO; Vázquez RND-Dimer STAT 14:00 10/10/2019 14:16 Keenan SERRANO; Kathie RNInfluenza Nasal A B STAT 14:00 10/10/2019 14:16 Keenan SERRANO; Kathie RNLactic Acid STAT 14:00 10/10/2019 14:16 Keenan SERRANO; Kathie GODWINRapid Strep Screen STAT 14:00 10/10/2019 14:16 Keenan SERRANO; Kathie RNTroponin-T STAT 14:00 10/10/2019 14:16 Keenan SERRANO; Kathie RNUrinalysis (Clean STAT 14:00 10/10/2019 14:16 Bambi) Isai SERRANO; Kathie RNVenous Blood Gas STAT 14:00 10/10/2019 14:16 Keenan SERRANO; Kathie RNFLU PANEL STAT 14:03 10/10/2019 14:16 Keenan SERRANO; Kathie GODWINBlood Culture STAT 14:54 10/10/2019 14:57 Sorbero,q10m X2 (Raz SERRANO; Lowell R.NOnelia14:54 10/10/2019)Blood Culture STAT 14:54 10/10/2019 14:57 Sorbero,q10m X2 (Rza SERRANO; Lowell R.N.15:04 10/10/2019)CORONAVIRUS STAT 15:00 10/10/2019 15:36 Russell,COVID- 19 Isai SERRANO; Lowell R.N. 2 OrderSheet [facility] Emergency Department [address] [place] [address] Phone #: ext- [phone] 10/10/2019 13:32 Patient: YAO HAINES Sex: F : 1985 Age: 34yDIAGNOSTIC STUDY ORDERSOrder Description Priority Entered Acknowledged InitialedChest Portable 1 STAT 14:00 10/10/2019 14:16 Celia SERRANO; Kathie GODWIN(Oxygen?(No)) Reason for Study: worsening SOB, tachypneaMEDICATION/IV/DRIP/FLUID ORDERSOrder Description Priority Entered Acknowledged InitialedNS IV : Bolus 250 14:00 10/10/2019 14:27 TerrymL, then 75 mL/hr Isai SERRANO; Kathie RN(NOW x1)Albuterol Neb Tx 14:00 10/10/2019 14:28 Terry2.5 mg (NOW x1) Isai SERRANO; Kathie RNAcetaminophen 1 g 14:00 10/10/2019 14:28 TerryPO X1 dose: 1000 Isai SERRANO; Kathie RNmg (NOW x1)Rocephin 14:54 10/10/2019 15:12 Sorbero,(1gm/50mL) IVPB Isai SERRANO; Lowell R.N.1000 mg withDextrose 50 mlspike bag (D5W)Azithromycin IVPB 14:54 10/10/2019 Cancelled: changed to po 15:12 Sorbero,500 mg with Isai SERRANO; Lowell R.N.DextroseIntravenous 250 mL(D5W)Azithromycin PO 15 :13 10/10/2019 15:13 Sorbero,500 mg (NOW x1) Sorbero, Lowell Lowell R.N. R.N.; Verbal order per; Isai Grossman PAGENERAL ORDERSOrder Description Priority Entered Acknowledged InitialedCardiac Monitor 14:00 10/10/2019 14:16 Keenan(continuous) Isai SERRANO; Kathie GODWINBlood Pressure 14:00 10/10/2019 14:16 TerryMonitor Isai SERRANO; Kathie GODWINEKG 14:00 10/10/2019 14:16 Keenan Isai SERRANO; Kathie GODWINOxygen via NC 2-4 14:00 10/10/2019 14:16 Terryliters/min titrate Isai SERRANO; Kathie GODWIN 3 OrderSheet [facility] Emergency Department [address] [place] [address] Phone #: ext- [phone] 10/10/2019 13:32 Patient: YAO HAINES Sex: F : 1985 Age: 34y>92%Pulse Oximetry 14:00 10/10/2019 14:16 Maddie SERRANO; Kathie RNVitals 14:00 10/10/2019 14:16 Keenan SERRANO; Kathie RNWarm blanket 14:00 10/10/2019 14:16 Keenan SERRANO; Kathie RN[Electronically signed by Isai Grossman (18:26 10/10/2019)][Electronically signed by Lowell Wells R.N. (18:10/10/2019)][Electronically locked by Lowell Wells R.N. (18:10/10/2019)] Name Value Range Interpretation Code Description Data Radha rce(s) Supporting Document(s) ID Date Data Source [id number] 10/10/2019 01:38:00 PM EDT [facility] 1 Medication Reconciliation Report [facility] Emergency Department [address] [place] [address] Phone #: ext- [phone] 10/10/2019 13:32 Patient: YAO HAINES Sex: F : 1985 Age: 34yWeight: 65.7 kgHeight/Length: 63 in.BMI: 25.7ALLERGIES: No Known Drug AllergyThe patient's Home Medications are listed below:THE FOLLOWING MEDICATIONS NEED TO BE RECONCILED: Albuterol Sulfate HFA Inhalation [facility] PredniSONEThe source(s) of the original Home Medication information:Not obtained.The following Medications were given to the patient in the Emergency Department:NS [IV] IV Fluids bolus 250 mL over 30 minute(s), then 75 mL/hr, administered: 10/10/2019 2:22:00 PMAlbuterol [Neb Tx] Neb TX 2.5 mg, administered: 10/10/2019 2:23:00 PMAcetaminophen [PO] PO 1000 mg, administered: 10/10/2019 2:23:00 PMROCEPHIN (1GM/50ML) [IVPB] IVPB bolus 0, then 1 gm 100 mL/hr, administered: 10/10/2019 3:12:00 PMAzithromycin [PO] PO 500 mg, administered: 10/10/2019 3:13:00 PMThe following Medications were prescribed to the patient:azithromycin 250 mg tablet Take 1 tablet once a day as directed for 4 days -- for pneumonia. Dispense 4tablet. Refills: 0. Substitution permitted. Note to Pharmacy - first dose given in ED.Pharmacy - [facility] - [address] [place] [address]. FaxNumber: [phone]. 2 Medication Reconciliation Report [facility] Emergency Department [address] [place] [address] Phone #: ext- [phone] 10/10/2019 13:32 Patient: YAO HAINES Sex: F : 1985 Age: 34ycefdinir 300 mg capsule Take 1 capsule twice a day for 10 days -- for pneumonia. Dispense 20 capsule.Refills: 0. Substitution permitted.Pharmacy - [facility] - [address] [place] [address]. . -- ZACH Leon Name Value Range Interpretation Code Description Data Radha rce(s) Supporting Document(s) ID Date Data Source [id number] 10/10/2019 01:38:00 PM EDT [facility] 1 Medication Administration Record [facility] Department [address] [place] [address] Phone #: ext- [phone] 10/10/2019 13:32 Patient: YAO HAINES Sex: F : 1985 Age: 34yWeight: 65.7 kgHeight/Length: 63 inBMI: 25.7ALLERGIES: No Known Drug Allergy Date/Time Medication Administered Medication OrderedStart NS [IV] NS IV : Bolus 250 mL, then 7514:22 10/10/2019 Dose: IV Fluids mL/hr (NOW x1)Keenan Vázquez RN Rate: 75 mL/hr over 4 hour(s)---- Bolus: 250 mL over 30 minute(s)Stop Dispensed: 1000 mL bag16:45 10/10/2019 Site: #1 right Lowell Guevara R.N.Given ALBUTEROL [NEB TX] Albuterol Neb Tx 2.5 mg (NOW x1)14:23 10/10/2019 Dose: 2.5 mg Nebulizer Jennifer Vázquez RNGimarielena ACETAMINOPHEN [PO] Acetaminophen 1 g PO X1 dose:14:23 10/10/2019 Dose: 1000 mg Tablets PO 1000 mg (NOW x1)AARON Chewta ROCEPHIN (1GM/50ML) [IVPB] Rocephin (1gm/50mL) IVPB 369834:12 10/10/2019 (CEFTRIAXONE SODIUM) mg with Dextrose 50 ml spike Lowell Hudson R.N. Dose: 1 gm IVPB (D5W)---- Rate: 100 mL/hr over 30 minute(s)Stop Dispensed: 50 mL bag15:50 10/10/2019 Site: #1 right Lowell Guevara R.N.Given AZITHROMYCIN [PO] Azithromycin PO 500 mg (NOW15:13 10/10/2019 Dose: 500 mg Tablets PO x1)Lowell Wells R.N. Name Value Range Interpretation Code Description Data Radha rce(s) Supporting Document(s) ID Date Data Source [id number] 10/10/2019 01:38:00 PM EDT [facility] 1 General Instructions [facility] Emergency Department [address] [place] [address] Phone #: ext- [phone] 10/10/2019 13:32 Patient: YAO HAINES Sex: F : 1985 Age: 34y Bacterial pneumonia. No hypoxemia, respiratory failure or sepsis.INSTRUCTIONS Take Tylenol (Acetaminophen) for temperature greater than 100.4 degrees. Take according to label instructions. Don't use Motrin (Ibuprofen) for fever. No strenuous activity until better. Rest at home for two days. Do not work (until contacted by [facility] with COVID 19 results). Avoid tobacco smoke. Do not smoke. No alcohol. (continue albuterol inhaler as needed). Warnings: Further evaluation is necessary. It is very important to follow up with a healthcare provider. GENERAL WARNINGS: Return or contact your physician immediately if your condition worsens or changes unexpectedly, if not improving as expected, or if other problems arise. SPECIFICALLY, return if you develop chest pain, neck pain, jaw pain, shoulder pain, arm pain, back pain, fever, productive cough, difficulty breathing, excessive fatigue, a fluttering sensation in the chest, fainting or leg swelling. Prescription Medications: azithromycin 250 mg tablet Take 1 tablet once a day as directed for 4 days -- for pneumonia. Dispense 4 tablet. Refills: 0. Substitution permitted. Note to Pharmacy - first dose given in ED. [facility] - [address] [place] [address]. . cefdinir 300 mg capsule Take 1 capsule twice a day for 10 days -- for pneumonia. Dispense 20 capsule. Refills: 0. Substitution permitted. [facility] [address] [facility] ; [place] [address]. . Follow-up: Follow up with your healthcare provider. Reason for referral: [employer] in quarantine at home until contacted by [facility] with COVID 19 results.. Summary of care provided to patient via paper. Understanding of the discharge instructions verbalized by patient. Understanding of the discharge instructions verbalized by patient. Expected course of illness, discharge instructions, activity level, prescriptions x2, follow-up appointment and risks and benefits of treatment reviewed with patient and understanding verbalized. Agrees to plan of care. ADDITIONAL INFORMATION 2 General Instructions [facility] Department [address] [place] [address] Phone #: ext- [phone] 10/10/2019 13:32 Patient: YAO HAINES Sex: F : 1985 Age: 34yPneumonia (Adult)Pneumonia is an infection deep within the lungs. It is in the small air sacs (alveoli). Pneumonia maybe caused by a virus or bacteria. Pneumonia caused by bacteria is usually treated with an antibiotic.Severe cases may need to be treated in the hospital. Milder cases can be treated at home.Symptoms usually start to get better during the first 2 days of treatment.Home careFollow these guidelines when caring for yourself at home: 3 General Instructions [facility] Department [address] [place] [address] Phone #: ext- [phone] 10/10/2019 13:32 Patient: YAO HAINES Sex: F : 1985 Age: 34y Rest at home for the first 2 to 3 days, or until you feel stronger. Don't let yourself get overly tired when you go back to your activities. Stay away from cigarette smoke yours or other people's. You may use acetaminophen or ibuprofen to control fever or pain, unless another medicine was prescribed. If you have chronic liver or kidney disease, talk with your healthcare provider before using these medicines. Also talk with your provider if you've had a stomach ulcer or gastrointestinal bleeding. Don't give aspirin to anyone younger than 18 years of age who is ill with a fever. It may cause severe liver damage. Your appetite may be poor, so a light diet is fine. Drink 6 to 8 glasses of fluids every day to make sure you are getting enough fluids. Beverages can include water, sport drinks, sodas without caffeine, juices, tea, or soup. Fluids will help loosen secretions in the lung. This will make it easier for you to cough up the phlegm (sputum). If you also have heart or kidney disease, check with your healthcare provider before you drink extra fluids. Take antibiotic medicine prescribed until it is all gone, even if you are feeling better after a few days.Follow-up careFollow up with your healthcare provider in the next 2 to 3 days, or as advised. This is to be sure themedicine is helping you get better.If you are 65 or older, you should get a pneumococcal vaccine and a yearly flu (influenza) shot. Youshould also get these vaccines if you have chronic lung disease like asthma, emphysema, or COPD.Recently, a second type of pneumonia vaccine has become available for everyone over 65 years old.This is in addition to the previous vaccine. Ask your provider about this.When to seek medical adviceCall your healthcare provider right away if any of these occur: You don't get better within the first 48 hours of treatment Shortness of breath gets worse Rapid breathing (more than 25 breaths per minute) Coughing up blood Chest pain gets worse with breathing Fever of 100.4F (38C) or higher that doesn't get better with fever medicine 4 General Instructions [facility] Department [address] [place] [address] Phone #: ext- [phone] 10/10/2019 13:32 Patient: [id number] Sex: F : 1985 Age: 34y Weakness, dizziness, or fainting that gets worse Thirst or dry mouth that gets worse Sinus pain, headache, or a stiff neck Chest pain not caused by coughing [id number] [employer] [place], [place] [id number]. All rights reserved. This information is not intended as asubstitute for professional medical care. Always follow your healthcare professional's instructions.Fever Control (Adult)A fever is a normal reaction of your body to an illness. The temperature itself usually isn't harmful. Itactually helps your body fight infections. You don't need to treat a fever unless you feel veryuncomfortable.Home careFollow these tips to take care of yourself at home: If you feel warm, check your temperature. Dress in light clothing. This will help you lose extra body heat through your skin. The fever will go up if you wear extra layers or wrap in blankets. Fever causes your body to lose water through evaporation. Drink plenty of fluids. These include water, juice, clear sodas, herberth elana, or lemonade.Fever medicinesYou can take acetaminophen every 4 to 6 hours if: You feel very uncomfortable Your oral temperature is 100.4F (38C) or higherIf you can't take or keep down oral medicine, ask your pharmacist for acetaminophen suppositories.You don't need a prescription for these.If the fever doesn't get better within 1 hour after you take acetaminophen, take ibuprofen. If thisworks, keep taking the ibuprofen every 6 to 8 hours.If you have chronic liver or kidney disease, talk with your healthcare provider before taking thesemedicines. Also talk with your provider if you ever had a stomach ulcer or GI (gastrointestinal)bleeding.If either me dicine alone doesn't keep the fever down, you may switch off between the 2 medicines 5 General Instructions [facility] Department [address] [place] [address] Phone #: ext- [phone] 10/10/2019 13:32 Patient: YAO HAINES Sex: F : 1985 Age: 34yevery 3 to 4 hours. But do this only if your healthcare provider has told you to. For example, takeibuprofen. Wait 3 hours. Then take acetaminophen. Wait 3 hours. Take ibuprofen, and so on. Followyour provider's instructions exactly.Don't give aspirin to anyone younger than age 19 who is ill with a fever. Aspirin can cause seriousside effects such as liver damage and Marika syndrome. Although rare, Marika syndrome is a veryserious illness usually found in children younger than age 15. The syndrome is closely linked to theuse of aspirin or aspirin-containing medicine during viral infection.Follow-up careFollow up with your healthcare provider if you don't get better after 48 hours.When to seek medical adviceCall your healthcare provider right away if any of these occur: Fever, as directed by your healthcare provider, or: o Fever of 100.4F (38C) or above lasting for 24 to 48 hours o Fever lasting more than 3 days, even without other symptoms o Fever that happens after visiting a foreign country o Fever that happens within a month after visiting a country with malaria. Malaria is a serious illness. A fever can still be malaria even if you took medicine to prevent it. The medicine does not work in all cases. Confusion or trouble thinking Headache or stiff neck Flat, small, purplish red spots on your skin Low blood pressure Fast heart rate Fast (rapid) breathing You are You just had surgery, another medical procedure, or were just discharged from the hospital Use of medicines that suppress the immune system (immunosuppressants). These include Prednisone, cancer medicines, and organ transplant rejection medicines. If you are not sure about whether your medicines suppress your immune system, ask your healthcare provider. 6 General Instructions [facility] Department [address] [place], [place] [address] Phone #: ext- [phone] 10/10/2019 13:32 Patient: YAO HAINES Sex: F : 1985 Age: 34yCall 911Someone should call 911 if you: Are having trouble breathing or shortness of breath Are unresponsiveImportant reminderCall your healthcare provider if you get a fever after visiting a place where infectious diseases arecommon. Many people fruit picker a cold or other virus while traveling. This usually goes away without aproblem. But, some places have more serious diseases. Fever with certain other symptoms maymean you have a serious illness. Symptoms to watch for include diarrhea, skin rashes, insect bites,and skin boils, or infections. Your provider may ask you: What you did on your trip How long you were there Where you stayed (hotel, manzanita house, tent) What you ate and drank If you were bitten by insects or other bugs If you swam in freshwater If you had sex or got a tattoo or piercing while you were thereCheck the [facility] to get more information about specific infectious diseases in the areas you havetraveled. [id number] [employer]. [address] [place] [address]. All rights reserved. This information is not intended as asubstitute for professional medical care. Always follow your healthcare professional's instructions. Prevention steps for People with confirmed or suspected COVID-19 (including persons under investigation) who do not need to be hospitalized A nd People with confirmed COVID-19 who were hospitalized and determined to be medically stable to go home Your healthcare provider and public health staff will evaluate whether you can be cared for at home. If it isdetermined that you do not need to be hospitalized and can be isolated at home, you will be monitored by staff [facility] or [facility]. You should follow the prevention steps below until a healthcare provider or 7 General Instructions [facility] Department [address] [place], [place] [address] Phone #: ext- [phone] 10/10/2019 13:32 Patient: YAO HAINES Sex: F : 1985 Age: 34ylocal or [facility] department says you can return to your normal activities. going to the bathroom; and before eating or prepa ring food. If soap Stay home except to get medical care and water are not readily available, use an alcohol-based hand People who are mildly ill with COVID-19 a re able to isolate at toys inspector with at least 60% alcohol, covering all surfaces of your handshome during their illness. You should restrict activities outside your and rubbing them together until they feel dry.home, except for getting medical care. Do not go to work, school, or Soap and water are the best option if hands are visibl y dirty.public areas. Avoid using public transportation, ride-sharing, or Avoid touching your eyes, nose, and mouth with unwashedtaxis. hands. Separate yourself fro m other people and animals in yourhome People: As much as possible, you should stay in a specific Flu Like Symptoms / Coronavirus Exposure - 30a Page 1 of 2room and away from other people in your home. Also, you shoulduse a separate bathroom, if available.Animals: You should restrict contact with pets and othe r animalswhile you are sick with COVID-19, just like you would around otherpeople. Although there have not been reports of pets or other animalsbecoming sick with COVID-19, it is still recommended that people sickwith COVID-19 limit contact with anima l s until more information isknown about the virus. When possible, have another member of yourhousehold care for your animals while you are sick. If you are sickwith COVID-19, avoid contact with your pet, including petting,snuggling, being kissed or lic ked, and sharing food. If you must carefor your pet or be around animals while you are sick, wash yourhands before and after you interact with pets and wear a facemask.See https:// www.cdc.gov/coronavirus/2019-ncov/faq.html#8534-nCuX-rod-animals for more information. Call ahead before visiting your doctor If you have a medical appointment, call the healthcare providerand tell them that you have or may have COVID-19. This will helpthe healthcare pro vider's office take steps to keep other peoplefrom getting infected or exposed. Wear a facemask You should wear a facemask when you are around otherpeople {e.g., sharing a room or vehicle} or pets and before youenter a healthcare provider' s office. If you are not able to weara facemask {for example, because it causes trouble breathing},then people who live with you should not stay in the same roomwith you, or they should wear a facemask if they enter yourroom. Cover your coughs and sneezes Cover your mouth and nose with a tissue when you cough orsneeze. Throw used tissues in a lined trash can. Immediatelywash your hands with soap and water for at least 20 seconds or, ifsoap and water are not available, clean your hands with an alcohol-based hand toys inspector that contains at least 60% alcohol. Clean your hands often Wash your hands often with soap and water for at least 20seconds, especially after blowing your nose, coughing, or sneezing; 8 General Instructions [facility] Department [address] [place] [address] Phone #: ext- [phone] 10/10/2019 13:32 Patient: YAO HAINES Sex: F : 1985 Age: 34yAvoid sharing personal household items hours. You should not share dishes, drinking glasses, cups, eating If you have a medical emergency and need to call 911, notify theutensils, towels, or bedding with other people or pets in your dispatch personnel that you have, or are being evaluated forhome. After using these items, they should be washed COVID-19. If possible, put on a facemask before emergencythoroughly with soap and water. medical services arrive.Clean all "high-touch" surfaces everyday Discontinuing home isolationHigh to uch surfaces include counters, tabletops, doorknobs,bathroom fixtures, toilets, phones, keyboards, tablets, and Patients with confirmed COVID-19 should remain under homebedside tables. Also, clean any surfaces that may have blood, isolation precautions until the risk of secondary transmission tostool, or body fluids on them. Use a household cleaning spray or others is thought to be low. The decision to discontinue homewipe, according to the label instructions. isolation precautions should be made on a bqel-ke-mfiw basis, inLabels contain instructions for safe and effective use of the consultation with healthcarecleaning product including precautions you should take when providers and state and local health departments.applying the product, such as wearing gloves and making sure Contactsyou have good ventilation during use of the pr oduct. Online information 2020 T System,Monitor your symptoms https:// www.cdc.gov/coronavirus/2019-ncov/about/index.html Seek prompt medical attention if your illness is worsening {e.g., difficulty breathing}. Before seeking care, call yourhealthcare provider and tell them that you have, or are beingevaluated for, COVID-19. Put on a facemask before you enterthe facility. These steps will help the healthcare provider's officeto keep other people in the office or wa i ting room from gettinginfected or exposed. Ask your healthcare provider to call the[facility] or state health department. Persons who are placed underactive monitoring or facilitated self-monitoring should followinstructions provided by their local health department or Content source: National Center for Immunization andoccupational health professionals, as appropriate. When Respiratory Diseases (NCIRD), Division of Viral Diseasesworking with your local health department check their available https://www.[employer]ystem.com/index.php 9 General Instructions [facility] Department [address] [place] [address] Phone #: ext- [phone] 10/10/2019 13:32 Patient: YAO HAINES Sex: F : 1985 Age: 34y Recommended precautions for household members,intimate partners, and caregivers in a nonhealthcare setting1 of A patient with symptomatic laboratory- confirmed COVID-19 or A patient under investigation Househo ld members, intimate partners, and caregivers in a nonhealthcare setting may have close contact2 with a person with symptomatic, laboratory-confirmed COVID-19 or a person under investigation. Closecontacts should monitor their health; they should call their healthcare provider right away if they develop symptoms suggestive of COVID-19 {e.g., fever, cough, shortness of breath}{see Interim [place] Guidance for Risk Assessment and Public Health Management of Persons with Potential Coronavirus Disease 2019 { COVID-19} Exposure in Travel-associated or Community Settings.}Close contacts should also follow these recommendations: o Avoid touching your eyes, nose, and mouth with unwashed hands.o Make sure that you understand and can help the patient follow their healthcare provider's instructions for medication{s} o The patient sh ould wear a facemask when you are around other and care. You should help the patient with basic needs in the people. If the patient is not able to wear a facemask {for home and provide support for getting groceries, prescriptions, example, because it causes trouble breathing}, you, as the and other personal needs. caregiver, should wear a mask when you are in the same roomo Monitor the patient's symptoms. If the patient is getting sicker, as the patient. call his or her healthcare provider and tell them that the patient o Wear a disposab le facemask and gloves when you touch or have has laboratory-confirmed COVID-19. This will help the contact with the patient's blood, stool, or body fluids, such as healthcare provider' s office take steps to keep other people in saliva, sputum, nasal mucus, vomit, urine. the office or waiting room from getting infected. Ask the o Throw out disposable facemasks and gloves after using healthcare provider to call the local or state health department them. Do not reuse. for additional guidance. If the patient has a medical emergency o When removing personal prote ctive equipment, first remove and you need to call 911 , notify the dispatch personnel that and dispose of gloves. Then, immediately clean your hands the patient has, or is being evaluated for COVID-19. with soap and water or alcohol-based hand toys inspector. Next,o Household members should stay in another room or be remove and dispose of facemask, and immediately clean your hands again with soap and water or alcohol-based from the patient as much as possible. Household hand toys inspector. members should use a separate bedroom and bathroom, if o Avoid sharing household items with the patient. You should not available. share dishes, drinking glasses, cups, eating utensils, towels,o Prohibit visitors who do not have an essential need to be bedding, or other items. After the patient uses these items, you in the home. should wash them thoroughly {see below " Wash laundryo Household members should care for any pets in the home. thoroughly"}. Do not handle pets or other animals while sick. For more information, see COVID-19 and Animals. Flu Like Symptoms / Coronavirus Exposure - 30a Page 2 ofo Make sure that shared sp aces in the home have good air flow, such as by an air conditioner or an opened window, o weather permitting.o Perform hand hygiene frequently. Wash your hands often with soap and water for at least 20 seconds or use an alcohol-based hand toys inspector that conta ins 60 to 95% alcohol, covering all surfaces of your hands and rubbing them together until they feel dry. Soap and water should be used preferentially if hands are visibly dirty. 10 General Instructions [facility] Emergency Department [address] [place] [address] Phone #: ext- [phone] 10/10/2019 13:32 Patient: YAO HAINES Sex: F : 1985 Age: 34y Clean all "high-touch" surfaces, such as counters, soap and water or an alcohol-based hand toys inspector} tabletops, doorknobs, bathroom fixtures, toilets, immediately after handling these items. Soap and water should phones, keyboards, tablets, and bedside tables, every be used preferentially if hands are visibly dirty. day. Also, clean any surfaces that may have blood, o Discuss any additional questions with your state or local stool, or body fluids on them. health department or healthcare provider. Check available o Use a household cleaning spray or wipe, hours when contacting your local health department. according to the label instructions. Labels contain Contacts instructions for safe and effective use of the Online information cleaning product including precautions you should https:// www.cdc.gov/coronavirus/2019-ncov/about/index.html take when applying the product, such as wearing gloves and making sure you have good ventilation during use of the product.o Wash laundry thoroughly. 2020 T System, o Immediately remove and wash clothes or bedding that have blood, stool, or body fluids on them. Content source: National Center for Immunization and Respiratory Diseases o Wear disposable gloves while handling soiled (NCIRD), Division of Viral Diseases items and keep soiled items away from your body. Clean your hands {with soap and water or an Footnotes alcohol-based hand toys inspector} immediately after 1 removing your gloves. Home healthcare personnel should refer to Bill millard Infection Prevention and o Read and follow directions on labels of laundry Control Recommendations for Patients with Known or Patients Under Investigation for Coronavirus Disease 2019 (COVID-19) in a Healthcare Setting . or clothing items and detergent. In general, using a normal laundry detergent according to washing 2Cl os e con ta ct i s defi shade a s- machine instructions and dry thoroughly using the warmest temperatures recommended on the being within approximately 6 feet (2 meters) of a COVID-19 case for a prolonged period of time; close contact can occur while caring for, living clothing label. with, visiting, or sharing a health care waiting area or room with a COVID-19o Place all used disposable gloves, facemasks, and other case - or - www.E-Semble.Jamgle/index.php contaminated items in a lined container before disposing of h aving direct contact with infectious secretions of a COVID-19 case (e.g., being them with other household waste. Clean your hands {with coughed on https:// You have been given the following additional information: Pneumonia (Adult) Fever Control (Adult) COVID-19 No strenuous activity until better. Rest at home for two days. Do not work (until contacted by [facility] with COVID 19 results).(Electronically signed by ZACH Leon 10/10/2019 18:26) 11 General Instructions [facility] Emergency Department [address] [place] [address] Phone #: ext- [phone] 10/10/2019 13:32 Patient: YAO HAINES Sex: F : 1985 Age: 34y Name Value Range Interpretation Code Description Data Radha rce(s) Supporting Document(s) ID Date Data Source [id number] 10/10/2019 01:38:00 PM EDT [facility] 1 Clinical Report - Nurses [facility] Emergency Department [address] [place] [address] Phone #: ext- [phone] 10/10/2019 13:32 Patient: YAO HAINES Sex: F : 1985 Age: 34yTRIAGEArrived by private vehicle. Historian: patient. ( Pt c/o 2 weeks of chest and shortness of breath, deniesfever, cough, on 20 day course of steroids and amx, by urgent care,).Acuity: LEVEL 3.Chief Complaint: SHORTNESS OF BREATH.SEPSIS SCREEN: Negative (no infection suspected/documented). --13:36 10/10/19 Gregg Henao R.N.13:33 10/10/19. BP: 134/91. HR: 77. RR: 26. O2 saturation: 100%. Temp: 97 F. --13:36 10/10/19PeGregg burgess R.N.13:46 10/10/19. Pain level now: 12/19. Describes the quality as sharp. --13:49 10/10/19 Keenan Vázquez RN.Weight: 65.7 kg. Height/Length: 63 inches. BMI: 25.7. --13:36 10/10/19 Gregg Henao R.N.MedicationsPredniSONE. --13:34 10/10/19 Gregg Henao R.N. Amox. --13:34 10/10/19 Gregg Henao R.N. Albuterol Sulfate HFA Inhalation. --13:34 10/10/19 Gregg Henao R.N. Pharmacy [facility]. --13:47 10/10/19 Keenan Vázquez RN.AllergiesNo Known Drug Allergy. --13:34 10/10/19 Gregg Henao R.N.PROBLEMS:Asthma. --13:48 10/10/19 Tunde Leon following entry was modified by ZACH Leon, 13:48 10/10/19Asthma. --13:35 10/10/19 Gregg Henao R.N..ADDITIONAL SURGERIES: (X 6). --13:35 10/10/19 Gregg Henao R.N.Tonsillectomy. --13:35 10/10/19 Gregg Henao R.N.Tubal Ligation. --13:36 10/10/19 Gregg Henao R.N.HistorySOCIAL HX: Former smoker. Occasional alcohol use. No drug use. She was offered HIV testing butdeclined and hepatitis C testing but declined. She has not traveled outside the [place] 2 Clinical Report - Nurses [facility] Emergency Department [address] [place] [address] Phone #: ext- [phone] 10/10/2019 13:32 Patient: YAO HAINES Sex: F : 1985 Age: 34y Infectious disease exposure: No infectious disease exposure. SELF HARM ASSESSMENT: Self harm assessment was performed. The patient answered "no" to the question(s) "Have you recently felt down, depressed, or hopeless?", "Do you have thoughts of harming or killing yourself?", "Do you have a plan for harming or killing yourself?", "Have you recently had thoughts about harming or killing others?", "Do you have any dangerous items in your possession?", "Have you noticed less interest or pleasure in doing things?", "Are you here because you tried to hurt yourself?" and "Have you ever tried to hurt yourself before today?". ABUSE ASSESSMENT: Abuse assessment. Abuse denied. NUTRITIONAL RISK ASSESSMENT: The nutritional risk assessment revealed no deficiencies. FUNCTIONAL ASSESSMENT: Functional assessment: no impairments noted. LEARNING NEEDS ASSESSMENT: The learning needs assessment revealed no barriers. FALL RISK ASSESSMENT: Fall risk assessment completed. No risk factors identified. SKIN INTEGRITY ASSESSMENT: Skin integrity risk assessment completed. No skin integrity risk identified. --13:36 10/10/19 Gregg Henao R.N. Interventions Identification band on patient. To treatment room. --13:36 10/10/19 Gregg Henao R.N.PHYSICAL [id number] 10/10/19. Ambulatory to room.GENERAL / NEURO / PSYCH: Alert. Oriented X 4.RESPIRATORY: Mild respiratory distress. The jason ent can speak a few words at a time. Chestnontender. Breath sounds within normal limits.CVS: Cardiac rhythm: normal sinus rhythm; (1340). Capillary refill less than 2 seconds.GI / : Abdomen soft and nontender. Bowel sounds within normal limits.SKIN: Skin is warm and dry. --13:48 10/10/19 Keenan Vázquez RN.NURSING PROGRESS NOTESMonitoring of patient in place. Patient gowned. Reassurance given. Call light placed in reach. Siderails up. Bed placed in lowest position. Brakes of bed on. --13:38 10/10/19 Gregg Henao R.N. Cardiac rhythm: normal sinus rhythm; (1340). satellite project site monitor, pulse oximeter and NIBP monitor placed on patient; site monitor- Lead II; monitor alarms on; monitor strip added to paper chart. Patient gowned. Head of bed elevated 75 degrees. Two patient identifiers checked. Call light placed in reach. Bed placed in lowest position. Brakes of bed on. Patient ready for evaluation- PA notified. --13:48 10/10/19 Keenan Vázquez RN 3 Clinical Report - Nurses [facility] Emergency Department [address] [place] [address] Phone #: ext- [phone] 10/10/2019 13:32 Patient: YAO HAINES Sex: F : 1985 Age: 34yWarming measures: blanket applied (1340). --13:49 10/10/19 Keenan Vázquez RN14:13 10/10/2019 Site #1 started via IV in the right antecubital space with an 20g angiocath; one attempt.--14:27 10/10/19 Keenan Vázquez RN14:22 10/10/2019 Started bag #1 1000 mL IV Fluids NS; bolus of 250 mL over 30 minute(s) then at 75mL/hr over 4 hour(s) via site #1 via IV pump. Allergies verified and confirmed 5 rights. IV patencyestablished. IV site checked: no pain, redness, or swelling. IV flushed thoroughly pre- and post-medicationadministration. Information reviewed with patient. --14:27 10/10/19 Keenan Vázquez RN14:10/10/2019 Albuterol Neb TX Nebulizer 2.5 mg given. Given by the nurse. Allergies verified andconfirmed 5 rights. Information reviewed with patient. --14:28 10/10/19 Keenan Vázquez RN14:23 10/10/2019 Acetaminophen PO Tablets 1000 mg given. Allergies verified and confirmed 5 rights.Information reviewed with patient. --14:28 10/10/19 Keenan Vázquez RN14:29 10/10/19. Oxygen administered by nasal cannula at 2 liters (1420). EKG time: (13:53 10/10/2019).EKG was performed by a nurse and shown to the PA. NSR. Checked patient name and birthdate:patient confirmed. Blood samples drawn by tech. (1413). Portable chest x-ray completed. Shown to thePA (1415). Checked patient name and birthdate: patient confirmed. Clean catch urine collected; samplesent to lab for urinalysis. Specimen labeled in the presence of the patient. --14:29 10/10/19 Keenan Vázquez RNChecked patient name and birthdate: patient confirmed. Flu swab obtained by RN via nasal swab. Labeledin the presence of the patient and sent to lab (0358 flu and flu 4). Checked patient name and birthdate:patient confirmed. Throat swab obtained by nurse for rapid strep; labeled in the presence of the patient andsent to lab (9681). --14:30 10/10/19 Keenan Vázquez RNRespiratory isolation precautions initiated. (1400). --14:30 10/10/19 Keenan Vázquez RN14:16 10/10/19. BP: 124/92. MAP: 102. HR: 69. O2 saturation: 100% on room air. --15:02 10/10/19 CITLALI Chavez14:30 10/10/19. BP: 124/100. MAP: 108. HR: 64. O2 saturation: 100% on nasal cannula at 2 liters/minute.--15:03 10/10/19 Keenan Vázquez RN14:45 10/10/19. BP: 116/85. MAP: 95. HR: 71. O2 saturation: 100% on nasal cannula at 2 liters/minute.--15:04 10/10/19 Keenan Vázquez RN( 1455 pt moved to room ! B for strict isolation). --15:04 10/10/19 Keenan Vázquez RN15:00 10/10/19. Reassurance given. The patient is calm and resting quietly. Overall patient status isimproved- she states feels better. ( droplet precautions in place. swabbed for flu. moved to 1Bisolation.). Two patient identifiers checked. Call light placed in reach. Side rails up x 2. Bed placed in 4 Clinical Report - Nurses [facility] Emergency Department [address] [place] [address] Phone #: ext- [phone] 10/10/2019 13:32 Patient: YAO HAINES Sex: F : 1985 Age: 34y lowest position. Brakes of bed on. --15:16 10/10/19 Lowell Wells R.N. 15:12 10/10/2019 Started 1 gm of ROCEPHIN (1GM/50ML) (cefTRIAXone Sodium) IVPB in bag #1 50 mL; at 100 mL/hr over 30 minute(s) via site #1. via IV pump. Allergies verified and confirmed 5 rights. IV patency established. IV site checked: no pain, redness, or swelling. IV flushed thoroughly pre- and post- medication administration. Information reviewed with patient including reason for taking this medication, signs of allergic reaction and precautions. Verbalizes understanding. --15:12 10/10/19 Lowell Wells R.N. 15:13 10/10/2019 Azithromycin PO Tablets 500 mg given. Allergies verified and confirmed 5 rights. Information reviewed with patient including reason for taking this medication, signs of allergic reaction and precautions. Verbalizes understanding. --15:13 10/10/19 Lowell Wells R.N. 15:50 10/10/2019 ROCEPHIN (1GM/50ML) IVPB via IV site #1 Discontinued: bag #1 completed. Total amount infused: 50 mL. IV patency established. IV site checked: no pain, redness, or swelling. IV flushed thoroughly. --16:32 10/10/19 Lowell Wells R.N. 16:19 10/10/19. Oxygen decreased; (room air). Reassurance given. ( walked around room on room air 3X was 89 to 100%. Isai gris made aware). Two patient identifiers checked. --16:30 10/10/19 Lowell Wells R.N. 16:45 10/10/2019 IV Fluids NS via IV site #1 Discontinued: bag #1 infused upon discharge. Total amount infused: 800 mL. IV patency established. IV site checked: no pain, redness, or swelling. IV flushed thoroughly. --16:45 10/10/19 Lowell Wells R.N.DISPOSITION / DISCHARGE 16:40 10/10/19. Condition at departure: improved and critical. The goals identified in the patient's plan of care were met. Fall risk assessment completed. No risk factors identified. No learning barriers present. Discharge instructions provided and reviewed with the patient. Reviewed warnings. Reviewed medication(s). Treatments reviewed. Reviewed referral to a primary care physician. Work note given. Patient verbalized understanding. Written instructions provided in Belarusian. The patient was discharged by the physician assistant statistician. She was discharged home and accompanied by family. She left ambulatory and via private vehicle. Family member driving. --16:45 10/10/19 Lowell Wells R.N. 16:44 10/10/2019 Site #1 removed upon discharge. Catheter intact. Bandage applied. --16:44 10/10/19 Lowell Wells R.N. 16:43 10/10/19. BP: 121/73. MAP: 89. HR: 74. RR: 22. O2 saturation: 100% on room air. Temp: 97.8 F. Pain level now: 0/10. --16:45 10/10/19 Lowell Wells R.N. Departure time: 16:47 10/10/2019. --16:47 10/10/19 Lowell Wells R.N. 5 Clinical Report - Nurses [facility] Emergency Department [address] [place] [address] Phone #: ext- [phone] 10/10/2019 13:32 Patient: YAO HAINES Sex: F : 1985 Age: 34yLocked/Released at 10/10/2019 18:29 by Lowell Wells R.N. Name Value Range Interpretation Code Description Data Radha rce(s) Supporting Document(s) ID Date Data Source [id number] 10/10/2019 01:38:00 PM EDT [facility] 1 Clinical Report - Physicians/Mid Levels [facility] Emergency Department [address] [place] [address] Phone #: ext- [phone] 10/10/2019 13:32 Patient: YAO HAINES Sex: F : 1985 Age: 34y Time Seen: 13:35 10/10/2019. Arrived- By private vehicle. Historian- patient. Disposition decision: 16:20 10/10/2019.HISTORY OF PRESENT ILLNESS Chief Complaint: DYSPNEA. This started about 2 weeks ago; Worsening cough, SOB and sharp L sided chest pain x 2 weeks, treated at [facility] x 2 weeks ago with PO amoxicillin and prednisone with no improvement, states had bronchitis with cough 2 weeks prior to these symptoms, which had resolved. Quit smoking 1 wk ago. Denies fever, sore throat, NVD, headache, body aches, or chills. states symptoms similar to prior episodes of pleurisy. The dyspnea is described as moderate and is worsened by exertion and is improved by rest. The patient has had a cough, chest discomfort, dyspnea on exertion and orthopnea. No sputum production, fever, sweating episodes, wheezing or chills. No calf pain, foot swelling, paroxysmal nocturnal dyspnea, anxiety or dizziness. No tingling, numbness or palpitations. The patient complains of moderate, sharp, exertional, pleuritic left-sided chest pain, currently moderate. No radiation or associated symptoms. Similar symptoms previously. Patient has had similar symptoms several times. Recent medical care: The patient was seen recently at another facility in a clinic.REVIEW OF SYSTEMSHas had a tubal ligation. She has not had weight loss. No muscle aches, eye irritation, sore throat, nasaldischarge or sinus drainage. No nausea, vomiting, abdominal pain, diarrhea or black stools. No bloodystools, headache, fainting episodes, blurred vision or difficulty with urination. No excessive urination, skinrash, enlarged lymph nodes, joint pain or abnormal bleeding. Denies current .PAST HISTORYSee nurses notes. Problems: Anemia. Abdominal Pain. Asthma. Pleurisy. Ovarian Cyst. Additional Surgeries: Adenoidectomy. Appendectomy. . Tonsillectomy. Tubal Ligation. 2 Clinical Report - Physicians/Mid [facility] Emergency Department [address] [place] [address] Phone #: ext- [phone] 10/10/2019 13:32 Patient: YAO HAINES Sex: F : 1985 Age: 34y Tympanostomy Tubes. Medications: Pharmacy [facility]. Albuterol Sulfate HFA Inhalation. Amox. PredniSONE. Allergies: No Known Drug Allergy.SOCIAL HISTORYFormer smoker. Occasional alcohol use. No drug use. No recent travel.ADDITIONAL NOTESThe nursing notes have been reviewed with agreement regarding the chief complaint, HPI, ROS, PMH andpatient medications and allergies.PHYSICAL EXAMVital Signs: 10/10/2019 13:33 BP: 134/91. MAP: 105. HR: 77. RR: 26. O2 saturation: 100%. Temp: 97 F.Have been reviewed as abnormal and appear to be correct. Hypertensive. Mean arterial pressure-normal. Heart rate normal. Tachypneic. Temperature normal. Oxygen saturation normal.Rehan earance: Alert. Anxious. Patient in mild distress. Distress appears due to anxiety.Eyes: Pupils equal, round and reactive to light. Eyes normal inspection.ENT: Ears normal. Nose normal. Pharynx normal. Uvula midline.Neck: Normal inspection. No jugular venous distention. Neck supple.CVS: Normal heart rate and rhythm. Heart sounds normal. Pulses normal.Respiratory: No respiratory distress. Painless inspiration. Breath sounds normal.Abdomen: Soft and nontender. No organomegaly.Back: Normal inspection.Skin: Skin warm and dry. Normal skin color. No rash. Normal skin turgor.Extremities: Extremities exhibit normal ROM. No lower extremity edema.Neuro: Oriented X 3. No motor deficit. No sensory deficit. Reflexes normal.LABS, X-RAYS, AND EKGEKG: EKG time: 14:10 10/10/2019. No acute process. No acute ischemia. Rate: 72. Normal P waves.Normal ANDRA. Normal QRS complex. Normal axis. Normal ST and T waves, QT and QTc. The studyhas been interpreted contemporaneously by me. The study has been independently viewed by me. TheEKG appears to be a good tracing. I agree with and confirm the computer reading of the EKG.Interpretation time: 14:10 10/10/2019.Chest X-ray: (Findings suggest a RLL infiltrate). Views: AP (por table). Technique: good. The X-rayswere independently viewed by me and interpreted by the radiologist and contemporaneously by me.Interpretation time: 14:57 10/10/2019.Laboratory Tests: Laboratory tests have been ordered, with results reviewed and considered in themedical decision making process. 3 Clinical Report - Physicians/Mid Levels [facility] Emergency Department [address] [place] [address] Phone #: [phone] ext- [phone] 10/10/2019 13:32 Patient: YAO HAINES Sex: F : 1985 Age: 34yBNP: (LORI: 10/10/2019 14:12) ( MsgRcvd 10/10/2019 14:47) Final results Test Result Flag Units (Reference) BNP 11 PG/ML (0 - 125)CBC w Diff: (LORI: 10/10/2019 14:12) ( MsgRcvd 10/10/2019 14:41) Final results Test Result Flag Units (Reference) CBC W/AUTOMATED DIFF COMPLETE BLOOD COUNT WBC 22.8 H 10/uL (4.2 - 11.0) RBC 5.11 10/uL (4.20 - 5.40) HEMOGLOBIN 10.7 L g/dL (12.0 - 16.0) HEMATOCRIT 36.3 L % (37.0 - 47.0) MCV 71.0 L fL (81.0 - 101) MCH 20.9 L pg (27.0 - 34.0) MCHC 29.5 L g/dL (31.0 - 36.0) RDW 17.1 H % (11.5 - 14.5) PLATELETS 616 H 10/uL (150 - 450) MPV 10.5 H fL (7.4 - 10.4) NEUT 75.5 % (37.0 - 80.0) LYMPH 14.3 L % (25.0 - 40.0) MONO 6.0 % (3.0 - 8.0) EOS 0.6 % (0.0 - 7.0) BASO 0.5 % (0.0 - 2.5) %IG 3.1 H % (0.0 - 0.0) %NRBC 0.0 % (0.0 - 0.0) #NEUT 17.18 H 10/uL (2.00 - 6.90) #LYMPH 3.26 10/uL (0.60 - 3.40) #MONO 1.37 H 10/uL (0.00 - 0.90) #EOS 0.14 10/uL (0.00 - 0.70) #BASO 0.12 10/uL (0.00 - 0.20) #IG 0.70 H 10/uL (0.00 - 0.10) #NRBC 0.00 10/uL (0.00 - 0.00) MANUAL DIFF SEE BELOW SEGS 75 % (37 - 80) BAND 1 % (0 - 5) %LYMPH 14 L % (25 - 40) %MONO 10 H % (3 - 8) RBC MORPH SEE BELOW ANISO 1+ A (NORMAL: NONE MICRO 2+ A (NORMAL: NONE POIK 1+ A (NORMAL: NONE HYPO 2+ A (NORMAL: NONE { SICKLE CELL (NORMAL: NONE SEEN ) PLT EST INCREASED A (NORMAL: LLOYD COMMENT: CMP: (LORI: 10/10/2019 14:12) ( MsgRcvd 10/10/2019 14:53) Final results Test Result Flag Units (Reference) COMPREHENSIVE METABOLIC PANEL COMPREHENSIVE METABOLIC PANEL SODIUM 137 mEq/L (134 - 153) POTASSIUM 3.9 mEq/L (3.6 - 5.0) CHLORIDE 99 mEq/L (98 - 107) CO2 25 MEQ/L (22 - 30) GLUCOSE 87 MG/DL (65 - 110) BUN 10 MG/DL (7 - 21) CREATININE 0.6 L MG/DL (0.7 - 1.5) BUN/CREAT 17 (8 - 27) TOTAL PROTEIN 7.9 G/DL (6.3 - 8.2) ALBUMIN 4.7 G/DL (3.9 - 5.0) GLOBULIN 3.2 GM/DL (2.4 - 3.2) 4 Clinical Report - Physicians/Mid Levels [facility] Emergency Department [address] [place] [address] Phone #: ext- [phone] 10/10/2019 13:32 Patient: YAO HAINES Sex: F : 1985 Age: 34y A/G RATIO 1.5 (0.8 - 2.0) CALCIUM 9.8 MG/DL (8.4 - 10.2) TOTAL BILI <0.7 MG/DL (0.2 - 1.3) ALKALINE PHOS 68 U/L (38 - 126) SGOT/AST 13 U/L (5 - 40) SGPT/ALT 15 U/L (7 - 56) ANION GAP 13.0 mmol/L (8.0 - 16.0) AGE 34 yrs NON-AA GFR >60 mL/min AFR AMER GFR >60 mL/min Male GFR Interprentation 20-49 yrs >60 mL/min Oyvnfz21-99 yrs >56 mL/min Normal 60-69 yrs >49 mL/min Normal 70-79yrs>42 mL/min Normal 80 and above >35 mL/min Normal Female GFRInterpretation 20-39 yrs >60 mL/min Normal 40-49 yrs >58 mL/minNormal 50-59 yrs >51 mL/min Normal 60-69 yrs >45 mL/min Qskyef70-12 yrs >39 mL/min Normal 80 and above >32 mL/min NormalD- Dimer: (LORI: 10/10/2019 14:12) ( [facility] 10/10/2019 14:40) F inal results Test Result Flag Units (Reference) D-DIMER QUANT 0.45 ug/mL (0.27 - 0.50)Influenza Nasal A B: (LORI: 10/10/2019 14:00) ( [facility] 10/10/2019 14:52) Final results Test Result Flag Units (Reference) INFLUENZA A NEGATIVE (NORMAL: NEGAT INFLUENZA B NEGATIVE (NORMAL: NEGAT INFLUENZA A REENTER NEGATIVE (NORMAL: NEGAT INFLUENZA B REENTER NEGATIVE (NORMAL: NEGAT PROCEDURAL CONTROL VALID KIT LOT # _[id number] 10/10/19.1452.DW . KIT EXP DATE _[id number] 68/31/20.1452.DW .The Influenza A utilizing an isothermal nucleic acid amplification technology for thequalitativedetection of influenza A and B viral RNA.Negative results do not preclude influenza virus infection and shouldnot beused as the sole basis for diagnosis, treatment or other patient managementdecisions.Lactic Acid: (LORI: 10/10/2019 14:12) ( [facility] 10/10/2019 14:25) Final results Test Result Flag Units (Reference) LACTIC ACID 2.0 MMOL/L (0.2 - 2.2)Rapid Strep Screen: (LORI: 10/10/2019 14:00) ( [facility] 10/10/2019 14:44) Final results Test Result Flag Units (Reference) RAPID STREP NEGATIVE (NORMAL: NEGAT RAPID STREP REENTER NEGATIVE (NORMAL: NEGAT { PROCEDURAL CONTROL VALID ){ KIT LOT #[id number] ){ KIT EXP DATE 10-04-20 )TheStrep A 2 assay utilizes isothermal nucleic acid amplification technology fothe qualitative detection of GroupA Strep bacterial nucleic acid in throat swabspecimens.All negative test results no longer need to be confirmedwith a culture. Follow-up testing requiring a culture is necessary if clinical symptoms persist, or inthe eventof an acute rheumatic fever outbreak. A culture will need to beordered by the Qualified Medical Provider.Negativeresults do not preclude infection with Group A Strep and should not beused as the sole basis for treatment.Troponin-T: (LORI: 10/10/2019 14:12) ( [facility] 10/10/2019 14:45) Final results Test Result Flag Units (Reference) TROPONIN T 0.01 NG/ML (0.00 - 0.10) TROPONIN T0.1 ng/ml Recommended as the clinical threshold value forTroponin T.Urinalysis: (LORI: 10/10/2019 14:14) ( [facility] 09/11 14:34) Final results Test Result Flag Units (Reference) URINALYSIS URINALYSIS SOURCE R 5 Clinical Report - Physicians/Mid Levels [facility] Emergency Department [address] [place] [address] Phone #: ext- [phone] 10/10/2019 13:32 [id number] Sex: F : 1985 Age: 34y COLOR yellow (NORMAL: Yello CLARITY clear (NORMAL: Clear SPEC GRAVITY 1.015 (1.001 - 1.030 pH 7 (5 - 9) GLUCOSE NORM (NORMAL: Negat BILIRUBIN NEG (NORMAL: Negat KETONE NEG (NORMAL: Negat PROTEIN NEG (NORMAL: Negat NITRITE NEG (NORMAL: Negat BLOOD NEG (NORMAL: Negat LEUK EST NEG (NORMAL: Negat UROBILINOGEN NOR (less than 1.0 MICROSCOPIC Not Indicate Venous Blood Gas: (LORI: 10/10/2019 14:12) ( [facility] 10/10/2019 14:25) Final results Test Result Flag Units (Reference) pH V 7.46 H (7.32 - 7.43) pCO2 V 35.1 L mm/HG (38.0 - 51.0) pO2 V 36.6 mm/HG (30.0 - 55.0) HCO3 V 24.6 meq/L (22.0 - 29.0) TCO2 V 25.7 meq/L (22.0 - 29.0) BASE EXCESS 1.1 (-2.0 - 2.0) O2 SAT V 74.1 % (40.0 - 85.0) Chest Portable 1 View: (LORI: 10/10/2019 14:00) ( MsgRcvd 10/10/2019 14:47) In Progress CHEST PORTABLE Reason(s): worsening SOB, tachypnea TRANSPORTATION: P IV? O2? Oxygen?(No) Room: ED : Will sign waiver.PROGRESS AND PROCEDURESCourse of Care: 15:40 Oct 10 2019. S/s c/w likely bacterial pneumonia, pt with hx of asthma, will performCOVID 19 testing/quarantine of pt as a precaution, discussed with [facility] RN. 16:24 Oct 10 2019. Pt able to maintain walk around 02 sats 98-100% on RA. 16:32 Oct 10 2019. Pt also tested positive for human rhinovirus/enterovirus on FLU 4 panel post discharge from ED. Disposition: Discharged home in good and improved condition. Discharge decision based on the following: patient's condition is improved; patient is ambulatory; patient is active; patient's pain is controlled; patient's exam is improved; moderately abnormal test results; improving condition on repeat evaluation; social support is adequate; transportation is available; follow-up is available; clinical impression is consistent with outpatient treatment.CLINICAL IMPRESSION Bacterial pneumonia. No hypoxemia, respiratory failure or sepsis. 6 Clinical Report - Physicians/Mid Levels [facility] Emergency Department [address] [place] [address] Phone #: ext- [phone] 10/10/2019 13:32 Patient: YAO HAINES Sex: F : 1985 Age: 34yINSTRUCTIONS Take Tylenol (Acetaminophen) for temperature greater than 100.4 degrees. Take according to label instructions. Don't use Motrin (Ibuprofen) for fever. No strenuous activity until better. Rest at home for two days. Do not work (until contacted by [facility] with COVID 19 results). Avoid tobacco smoke. Do not smoke. No alcohol. (continue albuterol inhaler as needed). Warnings: Further evaluation is necessary. It is very important to follow up with a healthcare provider. GENERAL WARNINGS: Return or contact your physician immediately if your condition worsens or changes unexpectedly, if not improving as expected, or if other problems arise. SPECIFICALLY, return if you develop chest pain, neck pain, jaw pain, shoulder pain, arm pain, back pain, fever, productive cough, diffi culty breathing, excessive fatigue, a fluttering sensation in the chest, fainting or leg swelling. Prescription Medications: azithromycin 250 mg tablet Take 1 tablet once a day as directed for 4 days -- for pneumonia. Dispense 4 tablet. Refills: 0. Substitution permitted. Note to Pharmacy - first dose given in ED. [facility] [place] [address] [place] [address]. . cefdinir 300 mg capsule Take 1 capsule twice a day for 10 days -- for pneumonia. Dispense 20 capsule. Refills: 0. Substitution permitted. [facility] [address] [place] [address]. . Follow-up: Follow up with your healthcare provider. Reason for referral: [id number] in quarantine at home until contacted by [facility] with COVID 19 results.. Summary of care provided to patient via paper. Understanding of the discharge instructions verbalized by patient. Understanding of the discharge instructions verbalized by patient. Expected course of illness, discharge instructions, activity level, prescriptions x2, follow-up appointment and risks and benefits of treatment reviewed with patient and understanding verbalized. Agrees to plan of care.(Electronically signed by ZACH Leon 10/10/2019 18:26) Name Value Range Interpretation Code Description Data Radha rce(s) Supporting Document(s) ID Date Data Source [id number] 10/10/2019 03:50:00 PM EDT [facility] Name Value Range Interpretation Code Description Data Radha rce(s) Supporting Document(s) SARS CORONAVIRUS 2 RNA [facility] This lab was ordered by [facility] sweetie and reported by [facility]. ID Date Data Source [id number] 10/14/2019 09:17:00 AM EDT [facility] Name Value Range Interpretation Code Description Data Radha rce(s) Supporting Document(s) SARS-CoV-2, STEPHANIE Not Detected Not Detected [facility] Testing was performed using the jessa(R) SARS-CoV-2 test.This test was developed and its performance characteristics determinedby [employer]. This test has not been FDA cleared orapproved. This test has been authorized by FDA under an Emergency UseAuthorization (EUA). This test is only authorized for the duration oftime the declaration that circumstances exist justifying theauthorization of the emergency use of in vitro diagnostic tests fordetection of SARS-CoV-2 virus and/or diagnosis of COVID-19 infectionunder section 564(b)(1) of the Act, 21 U.S.C. 360bbb-3(b)(1), unlessthe authorization is terminated or revoked sooner. ID Date Data Source [id number] 10/15/2019 06:09:00 PM EDT [facility] Name Value Range Interpretation Code Description Data Radha rce(s) Supporting Document(s) Bacteria identified in Blood by Culture [facility] NO GROWTH AFTER 5 DAYS ID Date Data Source [id number] 10/16/2019 07:22:00 AM EDT [facility] Name Value Range Interpretation Code Description Data Radha rce(s) Supporting Document(s) [facility] [place] [address] CLIA# [id number] SEE SCANNED REPORT{ PRELIM ID Date Data Source [id number] 10/16/2019 07:22:00 AM EDT [facility] Name Value Range Interpretation Code Description Data Radha rce(s) Supporting Document(s) [facility]LOOD [facility] _C[facility]LOOD_ [place] [address] CLIA# [id number] SEE SCANNED REPORT{ PRELIM ID Date Data Source [id number] 10/10/2019 02:34:00 PM EDT [facility] Name Value Range Interpretation Code Description Data Radha rce(s) Supporting Document(s) [facility]YSIS [facility] NORMAL: [facility] CLARITY clear NORMAL: Clear [facility] spital Specific gravity of Urine by Test strip 1.015 1.001 - 1.030 [facility] pH 7 5 - 9 [facility] Glucose [Mass/volume] in Urine by Test strip NORM NORMAL: Negat [facility] Bilirubin.total [Presence] in Urine by Test strip NEG NORMAL: Negative [facility] Ketones [Presence] in Urine by Test strip NEG NORMAL: Negative [facility] Protein [Mass/volume] in Urine by Test strip NEG NORMAL: [facility] Nitrite [Presence] in Urine by Test strip NEG NORMAL: Negative [facility] BLOOD NEG NORMAL: Negative [facility] Leukocyte esterase [Presence] in Urine by Test strip NEG LLOYD L: Negative [facility] Urobilinogen [Mass/volume] in Urine by Test strip NOR less anjana n 1.0 mg/dL [facility] MICROSCOPIC Not Indicate [facility] ID Date Data Source [id number] 10/10/2019 02:53:00 PM EDT [facility] Name Value Range Interpretation Code Description Data Radha rce(s) Supporting Document(s) COMPREHENSIVE METABOLIC PANEL [facility] COMPREHENSIVE METABOLIC PANEL Sodium [Moles/volume] in Serum or Plasma 137 mEq/L 134 - 153 [facility] Potassium [Moles/volume] in Serum or Plasma 3.9 mEq/L 3.6 - 5.0 [facility] Chloride [Moles/volume] in Serum or Plasma 99 mEq/L 98 - 107 [facility] Carbon dioxide, total [Moles/volume] in Serum or Plasma 25 MEQ/L 22 - 30 [facility] Glucose [Mass/volume] in Serum or Plasma 87 MG/DL 65 - 110 [facility] BUN 10 MG/DL 7 - 21 [facility] al Creatinine [Mass/volume] in Serum or Plasma 0.6 MG/DL 0.7 - 1.5 L [facility] BUN/CREAT 17 8 - 27 [facility] al Protein [Mass/volume] in Serum or Plasma 7.9 G/DL 6.3 - 8.2 [facility] Albumin [Mass/volume] in Serum or Plasma 4.7 G/DL 3.9 - 5.0 [facility] Globulin [Mass/volume] in Serum by calculation 3.2 GM/DL 2.4 - 3.2 [facility] A/G RATIO 1.5 0.8 - 2.0 [facility] Calcium [Mass/volume] in Serum or Plasma 9.8 MG/DL 8.4 - 10.2 [facility] Bilirubin.total [Mass/volume] in Serum or Plasma <0.7 MG/DL 0.2 - 1.3 [facility] Alkaline phosphatase [Enzymatic activity/volume] in Serum or Plasma 68 U/L 38 - 126 [facility] Aspartate aminotransferase [Enzymatic activity/volume] in Serum or Plasma 13 U/L 5 - 40 [facility] Alanine aminotransferase [Enzymatic activity/volume] in Seru m or Plasma 15 U/L 7 - 56 [facility] Anion gap 3 in Serum or Plasma 13.0 mmol/L 8.0 - 16.0 [facility] AGE 34 yrs [facility] al NON-AA GFR >60 mL/min [facility] ital AFR AMER GFR >60 mL/min [facility] Male GFR In terprentation 20-49 yrs >60 mL/min Normal 50-59 yrs >56 mL/min Normal 60-69 yrs >49 mL/min Normal 70-79yrs >42 mL/min Normal 80 and above >35 mL/min Normal Female GFR Interpretation 20-39 yrs >60 mL/min Normal 40-49 yrs >58 mL/min Normal 50-59 yrs >51 mL/min Normal 60-69 yrs >45 mL/min Normal 70-79 yrs >39 mL/min Normal 80 and above >32 mL/min Normal ID Date Data Source [id number] 10/10/2019 02:47:00 PM EDT [facility] Name Value Range Interpretation Code Description Data Radha rce(s) Supporting Document(s) BNP 11 PG/ML 0 - 125 [facility] ID Date Data Source [id number] 10/10/2019 02:45:00 PM EDT [facility] Name Value Range Interpretation Code Description Data Radha rce(s) Supporting Document(s) TROPONIN T 0.01 NG/ML 0.00 - 0.10 [facility] spital TROPONIN T0.1 ng/ml Recommended as the c linical threshold value forTroponin T. ID Date Data Source [id number] 10/10/2019 02:39:00 PM EDT [facility] Name Value Range Interpretation Code Description Data Radha rce(s) Supporting Document(s) CBC W/AUTOMATED DIFF [facility] COMPLETE BLOOD COUNT Leukocytes [#/volume] in Blood by Automated count 22.8 10^3/uL 4.2 - 11.0 H [facility] Erythrocytes [#/volume] in Blood by Automated count 5.11 10^6/uL 4. 20 - 5.40 [facility] Hemoglobin [Mass/volume] in Blood 10.7 g/dL 12.0 - 16.0 L [facility] Hematocrit [Volume Fraction] of Blood by Automated count 36.3 % 3 7.0 - 47.0 L [facility] Erythrocyte mean corpuscular volume [Entitic volume] by Auto mated count 71.0 fL 81.0 - 101 L [facility] Erythrocyte mean corpuscular hemoglobin [Entitic mass] by Automated count 20.9 pg 27.0 - 34.0 L [facility] Erythrocyte mean corpuscular hemoglobin concentration [Mass/volume] by Automated count 29.5 g/dL 31.0 - 36.0 L [facility] Erythrocyte distribution width [Ratio] by Automated count 17.1 % 11.5 - 14.5 H [facility] Platelets [#/volume] in Blood by Automated count 616 10^3/uL 150 - 45 0 H [facility] Platelet mean volume [Entitic volume] in Blood by Automated count 10.5 fL 7.4 - 10.4 H [facility] Neutrophils/100 leukocytes in Blood by Automated count 75.5 % 37. 0 - 80.0 [facility] Lymphocytes/100 leukocytes in Blood by Manual count 14.3 % 25.0 - 40.0 L [facility] Monocytes/100 leukocytes in Blood by Automated count 6.0 % 3.0 - 8.0 [facility] Eosinophils/100 leukocytes in Blood by Automated count 0.6 % 0.0 - 7.0 [facility] Basophils/100 leukocytes in Blood by Automated count 0.5 % 0.0 - 2.5 [facility] %IG 3.1 % 0.0 - 0.0 [facility] %NRBC 0.0 % 0.0 - 0.0 [facility] Neutrophils [#/volume] in Blood by Automated count 17.18 10^3/uL 2. 00 - 6.90 H [facility] Lymphocytes [#/volume] in Blood by Automated count 3.26 10^3/uL 0.60 - 3.40 [facility] Monocytes [#/volume] in Blood by Automated count 1.37 10^3/uL 0.00 - 0.90 H [facility] Eosinophils [#/volume] in Blood by Automated count 0.14 10^3/uL 0.00 - 0.70 [facility] Basophils [#/volume] in Blood by Automated count 0.12 10^3/uL 0.00 - 0.20 [facility] #IG 0.70 10^3/uL 0.00 - 0.10 H [facility] #NRBC 0.00 10^3/uL 0.00 - 0.00 [facility] MANUAL DIFF SEE BELOW [facility] Segmented neutrophils/100 leukocytes in Blood by Manual count 75 % 37 - 80 [facility] BAND 1 % 0 - 5 [facility] %LYMPH 14 % 25 - 40 [facility] %MONO 10 % 3 - 8 H [facility] RBC MORPH SEE BELOW [facility] al Anisocytosis [Presence] in Blood by Light microscopy 1+ LLOYD L: NONE SEEN A [facility] Microcytes [Presence] in Blood by Light microscopy 2+ NORMAL: NONE SEEN A [facility] Poikilocytosis [Presence] in Blood by Light microscopy 1+ NOR MAL: NONE SEEN A [facility] HYPO 2+ NORMAL: NONE SEEN A [facility] { SICKLE CELL (NORMAL: NONE SEEN ) Platelet adequacy [Presence] in Blood by Light microscopy IN CREASED NORMAL: NORMAL A [facility] COMMENT: ID Date Data Source [id number] 10/10/2019 02:39:00 PM EDT [facility] Name Value Range Interpretation Code Description Data Radha rce(s) Supporting Document(s) Fibrin D-dimer FEU [Mass/volume] in Platelet poor plasma 0.45 ug /mL 0.27 - 0.50 [facility] ID Date Data Source [id number] 10/10/2019 02:25:00 PM EDT [facility] Name Value Range Interpretation Code Description Data Radha rce(s) Supporting Document(s) pH of Serum or Plasma 7.46 7.32 - 7.43 H [facility] pCO2 V 35.1 mm/HG 38.0 - 51.0 L [facility] pO2 V 36.6 mm/HG 30.0 - 55.0 [facility] Bicarbonate [Moles/volume] in Venous blood 24.6 meq/L 22.0 - 29.0 [facility] TCO2 V 25.7 meq/L 22.0 - 29.0 [facility] pital Base excess in Blood by calculation 1.1 -2.0 - 2.0 [facility] O2 SAT V 74.1 % 40.0 - 85.0 [facility] ID Date Data Source [id number] 10/10/2019 02:24:00 PM EDT [facility] Name Value Range Interpretation Code Description Data Radha rce(s) Supporting Document(s) Lactate [Moles/volume] in Serum or Plasma 2.0 MMOL/L 0.2 - 2.2 [facility] ID Date Data Source [id number] 10/10/2019 04:11:00 PM EDT [facility] 4408THIS TESTS FOR HUMAN CORONAV IRUS NOT COVID-19FilmArray Respiratory Panel is a Multiplexed NAAT-PCR testNORMAL VALUE FOR ALL 20 PATHOGENS IS "NOT DETECTED".The FilmArray RP panel detects Influenza A H1,H3 [id number] H1 viruses,Influenza B virus, Respiratory syncytialvirus, Human metapneumovirus,Parainfluenza virus 1,2,3, and4, Adenovirus,Rhino/Enterovirus,Coronavirus HKU 1, Nl63,OC43, and 229E,Bordetella pertussis, Bordetellaparapertussis, Mycoplasma pneumoniae and Chlamydiapneumoniae.THIS TEST HAS NOT BEEN EVALUATED FOR USE WITH SPECIMENSOTHER THAN NASOPHARYNGEAL SWAB SPECIMENS.THE PERFORMANCE OF THIS TEST HAS NOT BEEN ESTABLISHED FORPATIENTS WITHOUT SIGNS AND SYMPTOMS OF RESPIRATORYINFECTION.RESULTS FROM THIS TEST MUST BE CORRELATED WITH CLINICALHISTORY, EPIDEMIOLOGICAL DATA , AND OTHER DATA AVAILABLE TOTHE CLINICIAN EVALUATING THE PATIENT.THE PERFORMANCE OF THE FilmARRAY RP HAS NOT BEEN ESTABLISHEDIN INDIVIDUALS WHO RECEIVED INFLUENZA VACCINE. RECENTADMINISTRATION O F A NASAL INFLUENZA VACCINE MAY CAUSE AFALSE POSITIVE RESULT FOR INFLUENZA A AND/OR B.NEGATIVE RESULTS SHOULD NOT BE USED THE SOLE BASIS FORDIAGNOSIS, TREATMENT, OR OTHER MANAGEMENT DECISIONS.NEGATIVE RESULTS IN THE SETTING OF A RESPIRATORY ILLNESSMAYBE DUE TO INFECTION WITH PATHOGENS THAT ARE NOT DETECTEDBY THIS TEST OR LOWER RESPIRATORY TRACT INFECTION THAT ISNOT DETECTED BY A NASOPHARYNGEAL SWAB SPECIMEN.Human Rhinovirus/enterovirus Name Value Range Interpretation Code Description Data Radha rce(s) Supporting Document(s) ID Date Data Source [id number] 10/10/2019 05:22:00 PM EDT [facility] Name Value Range Interpretation Code Description Data Radha rce(s) Supporting Document(s) FLU PANEL [facility] _RESPIRATORY PANEL, FLU4_ [place] [address] CLIA# [id number] SEE SCANNED REPORT ID Date Data Source [id number] 10/10/2019 02:52:00 PM EDT [facility] Name Value Range Interpretation Code Description Data Radha rce(s) Supporting Document(s) Influenza virus A Ag [Presence] in Nasopharynx by Immunoassa y NEGATIVE NORMAL: NEGATIVE [facility] Influenza virus B Ag [Presence] in Nasopharynx by Immunoassa y NEGATIVE NORMAL: NEGATIVE [facility] NEGATIVENEGATIVE PROCEDURAL CO NTROL VALID KIT LOT # _[id number] 10/10/19.1452.DW . KIT EXP DATE _37-40-05 10/10/19.1452.DW .The Influenza A & B assay is a rapid molecular in vitro diagnostic testutilizing an isothermal nucleic acid amplification technology for thequalitative detection of influenza A and B viral RNA.Negative results do not preclude influenza virus infection and should not beused as the sole basis for diagnosis, treatment or other patient managementdecisions. ID Date Data Source [id number] 10/10/2019 02:43:00 PM EDT [facility] Name Value Range Interpretation Code Description Data Radha rce(s) Supporting Document(s) RAPID STREP NEGATIVE NORMAL: NEGATIVE [facility] RAPID STREP REENTER NEGATIVE NORMAL: NEGATIVE [facility] { PROCEDURAL CONTROL VALID ){ KIT LOT # [id number] ){ KIT EXP DATE 10-04-20 )The Strep A 2 assay utilizes isothermal nucleic acid amplification technology fothe qualitative detection of Group A Strep bacterial nucleic acid in throat swabspecimens.All negative test results no longer need to be confirmed with a culture. Follow-up testing requiring a culture is necessary if clinical symptoms persist, or inthe event of an acute rheumatic fever outbreak. A culture will need to beordered by the Qualified Medical Provider.Negative results do not preclude infection with Group A Strep and should not beused as the sole basis for treatment. Procedure Social History Code Duration Value Status Description Data Source(s ) Smoking 06/05/2020 12:00:00 AM EST Patient is a former smoker completed Patient is a former smoker MEDENT ([facility]) Smoking 12/11/2019 12:00:00 AM EDT Former Smoker completed Former Smoker [id number] ([facility]) Vital Signs ID Date Data Source UNK Name Value Range Interpretation Code Description Data Source(s) Body weight 2352 [oz_av] 2352 [oz_av] AALIYAH ([facility]) Systolic blood pressure 124 mm[Hg] 124 mm[Hg] A THENA ([facility]) Body mass index (BMI) [Ratio] 24.5 kg/m2 24.5 k g/m2 LEWIS ([facility]) Body height 65 [in_i] 65 [in_i] LEWIS ([facility]) Diastolic blood pressure 77 mm[Hg] 77 mm[Hg] LEWIS ([facility]) Body mass index (BMI) [Ratio] 26.6 kg/m2 26.6 k g/m2 MEDENT ([facility]) Body height 63 [in_i] 63 [in_i] MEDENT ([facility]) 5'3" Body weight 150.00 [lb_av] 150.00 [lb_av] MEDEN T ([facility]) Body temperature 98.2 [degF] 98.2 [degF] [facility] Oxygen saturation in Arterial blood by [facility]ulse oximetry 98 % 98 % [facility] ([facility] Respiratory rate 18 /min 18 /min [facility] ( [facility]) Heart rate 66 /min 66 /min MEDENT ([facility], [facility]) Body mass index (BMI) [Ratio] 26.6 kg/m2 26.6 k g/m2 MEDENT ([facility], [facility]) Body height 63 [in_i] 63 [in_i] MEDENT ([facility], [facility]) 5'3" Body weight 150.00 [lb_av] 150.00 [lb_av] MEDEN T ([facility], [facility]) Body temperature 97.8 [degF] 97.8 [degF] MEDENT ([facility], [facility]) Oxygen saturation in Arterial blood by Pulse oximetry 98 % 98 % MEDENT ([facility], [facility]) Respiratory rate 20 /min 20 /min MEDENT ( [facility], [facility]) Heart rate 57 /min 57 /min MEDENT ([facility], [facility]) Diastolic blood pressure 65 mm[Hg] 65 mm[Hg] MEDENT ([facility], [facility]) Systolic blood pressure 125 mm[Hg] 125 mm[Hg] M EDENT ([facility], [facility]) Body weight 2512 [oz_av] 2512 [oz_av] AALIYAH ([facility]) Systolic blood pressure 117 mm[Hg] 117 mm[Hg] A [facility] ([facility]) Body mass index (BMI) [Ratio] 26.1 kg/m2 26.1 k g/m2 AALIYAH ([facility]) Body height 65 [in_i] 65 [in_i] AALIYAH ([facility]) Diastolic blood pressure 85 mm[Hg] 85 mm[Hg] AALIYAH ([facility]) Body weight 2512 [oz_av] 2512 [oz_av] AALIYAH ([facility]) Systolic blood pressure 117 mm[Hg] 117 mm[Hg] A [facility] ([facility]) Body mass index (BMI) [Ratio] 26.1 kg/m2 26.1 k g/m2 AALIYAH ([facility]) Body height 65 [in_i] 65 [in_i] AALIYAH ([facility]) Diastolic blood pressure 85 mm[Hg] 85 mm[Hg] AALIYAH ([facility]) Body weight 2512 [oz_av] 2512 [oz_av] AALIYAH ([facility]) Systolic blood pressure 117 mm[Hg] 117 mm[Hg] A THENA ([facility]) Body mass index (BMI) [Ratio] 26.1 kg/m2 26.1 k g/m2 AALIYAH ([facility]) Body height 65 [in_i] 65 [in_i] AALIYAH ([facility]) Diastolic blood pressure 85 mm[Hg] 85 mm[Hg] AALIYAH ([facility]) Body mass index (BMI) [Ratio] 26.9 kg/m2 26.9 k g/m2 MEDENT ([facility], [facility]) Body height 63 [in_i] 63 [in_i] MEDENT ([facility]) 5'3" Body weight 152.00 [lb_av] 152.00 [lb_av] MEDEN T ([facility], [facility]) Body temperature 98.6 [degF] 98.6 [degF] [facility] ([facility] [facility], [facility]) Oxygen saturation in Arterial blood by Pulse oximetry 98 % 98 % MEDENT ([facility], [facility]) Heart rate 78 /min 78 /min MEDENT ([facility], [facility]) Diastolic blood pressure 81 mm[Hg] 81 mm[Hg] MEDENT ([facility], [facility]) Systolic blood pressure 113 mm[Hg] 113 mm[Hg] M EDENT ([facility], [facility]) Body weight 2470.08 [oz_av] 2470.08 [oz_av] ATH IRENE ([facility]) Systolic blood pressure 119 mm[Hg] 119 mm[Hg] A THENA ([facility]) Body mass index (BMI) [Ratio] 25.78 kg/m2 25.78 kg/m2 AALIYAH ([facility]) Body height 65 [in_i] 65 [in_i] AALIYAH ([facility]) Diastolic blood pressure 78 mm[Hg] 78 mm[Hg] AALIYAH ([facility]) Body weight 2470.08 [oz_av] 2470.08 [oz_av] ATH IRENE ([facility]) Systolic blood pressure 119 mm[Hg] 119 mm[Hg] A [facility] ([facility]) Body height 65 [in_i] 65 [in_i] AALIYAH ([facility]) Diastolic blood pressure 78 mm[Hg] 78 mm[Hg] AALIYAH ([facility]) Body weight 2470.08 [oz_av] 2470.08 [oz_av] ATH IRENE ([facility]) Systolic blood pressure 119 mm[Hg] 119 mm[Hg] A THENA ([facility]) Body height 65 [in_i] 65 [in_i] AALIYAH ([facility]) Diastolic blood pressure 78 mm[Hg] 78 mm[Hg] AALIYAH ([facility]) Body mass index (BMI) [Ratio] 11.2 kg/m2 11.2 k g/m2 [facility], [facility]) Body height 63 [in_i] 63 [in_i] [facility], [facility]) 5'3" Body weight 63.00 [lb_av] 63.00 [lb_av] MEDENT ([facility], [facility]) Body temperature 157.0 [degF] 157.0 [degF] MEDE NT ([facility], [facility]) Oxygen saturation in Arterial blood by Pulse oximetry 99 % 99 % [facility] ([facility], [facility]) Respiratory rate 17 /min 17 /min [facility] ( [facility], [facility]) Heart rate 83 /min 83 /min MEDENT ([facility], [facility]) Diastolic blood pressure 57 mm[Hg] 57 mm[Hg] MEDENT ([facility], [facility]) Systolic blood pressure 105 mm[Hg] 105 mm[Hg] M EDENT ([facility], [facility]) Body weight 2518.08 [oz_av] 2518.08 [oz_av] ATH IRENE ([facility]) Systolic blood pressure 129 mm[Hg] 129 mm[Hg] A THENA ([facility]) Body mass index (BMI) [Ratio] 26.28 kg/m2 26.28 kg/m2 AALIYAH ([facility]) Body height 65 [in_i] 65 [in_i] AALIYAH ([facility]) Diastolic blood pressure 78 mm[Hg] 78 mm[Hg] AALIYAH ([facility]) Body weight 2518.08 [oz_av] 2518.08 [oz_av] ATH IRENE ([facility]) Systolic blood pressure 129 mm[Hg] 129 mm[Hg] A THENA ([facility]) Body height 65 [in_i] 65 [in_i] AALIYAH ([facility]) Diastolic blood pressure 78 mm[Hg] 78 mm[Hg] AALIYAH ([facility]) Body weight 2518.08 [oz_av] 2518.08 [oz_av] ATH IRENE ([facility]) Systolic blood pressure 129 mm[Hg] 129 mm[Hg] A [facility] ([facility]) Body height 65 [in_i] 65 [in_i] AALIYAH ([facility]) Diastolic blood pressure 78 mm[Hg] 78 mm[Hg] AALIYAH ([facility]) Body mass index (BMI) [Ratio] 24.8 kg/m2 24.8 k g/m2 MEDENT ([facility], [facility]) Body height 63 [in_i] 63 [in_i] MEDENT ([facility], [facility]) 5'3" Body weight 140.00 [lb_av] 140.00 [lb_av] MEDEN T ([facility], [facility]) Body temperature 98.7 [degF] 98.7 [degF] MEDENT ([facility], [facility]) Oxygen saturation in Arterial blood by Pulse oximetry 99 % 99 % [facility] ([facility], [facility]) Heart rate 107 /min 107 /min MEDENT ([facility], [facility]) Diastolic blood pressure 89 mm[Hg] 89 mm[Hg] MEDENT ([facility], [facility]) Systolic blood pressure 135 mm[Hg] 135 mm[Hg] M EDENT ([facility], [facility]) Diastolic blood pressure 70 mm[Hg] 70 mm[Hg] eCW1 ([facility]) Systolic blood pressure 118 mm[Hg] 118 mm[Hg] e CW1 ([facility]) Body mass index (BMI) [Ratio] 28.3 kg/m2 28.3 k g/m2 eCW1 ([facility]) Body height 63 [in_i] 63 [in_i] eCW1 ([facility]) Body weight 159.8 [lb_av] 159.8 [lb_av] eCW1 ([facility]) Diastolic blood pressure 76 mm[Hg] 76 mm[Hg] eCW1 ([facility]) Systolic blood pressure 124 mm[Hg] 124 mm[Hg] e CW1 ([facility]) Body mass index (BMI) [Ratio] 28.16 kg/m2 28.16 kg/m2 eCW1 ([facility]) Body height 63 [in_us] 63 [in_us] eCW1 ([facility]) Body weight Measured 159 [lb_av] 159 [lb_av] eC W1 ([facility]) Body mass index (BMI) [Ratio] 26.9 kg/m2 26.9 k g/m2 MEDENT ([facility]) Body weight 149.50 [lb_av] 149.50 [lb_av] MEDEN T ([facility]) Body height 62.5 [in_i] 62.5 [in_i] MEDENT ([facility]) 5'2.50" Body temperature 99.3 [degF] 99.3 [degF] MEDENT ([facility]) Body mass index (BMI) [Ratio] 24.8 kg/m2 24.8 k g/m2 MEDENT ([facility], [facility]) Body height 63 [in_i] 63 [in_i] MEDENT ([facility], [facility]) 5'3" Body weight 140.00 [lb_av] 140.00 [lb_av] MEDEN T ([facility], [facility]) Body temperature 98.9 [degF] 98.9 [degF] MEDENT ([facility], [facility]) Oxygen saturation in Arterial blood by Pulse oximetry 99 % 99 % MEDENT ([facility], [facility]) Respiratory rate 18 /min 18 /min MEDENT ( [facility], [facility]) Heart rate 96 /min 96 /min MEDENT ([facility], [facility]) Diastolic blood pressure 81 mm[Hg] 81 mm[Hg] MEDENT ([facility], [facility]) Systolic blood pressure 136 mm[Hg] 136 mm[Hg] M EDENT ([facility], [facility]) Body mass index (BMI) [Ratio] 24.8 kg/m2 24.8 k g/m2 MEDENT ([facility], [facility]) Body height 63 [in_i] 63 [in_i] MEDENT ([facility], [facility]) 5'3" Body weight 140.00 [lb_av] 140.00 [lb_av] MEDEN T ([facility], [facility]) Body temperature 98.0 [degF] 98.0 [degF] MEDENT ([facility], [facility]) Oxygen saturation in Arterial blood by Pulse oximetry 99 % 99 % MEDENT ([facility], [facility]) Respiratory rate 16 /min 16 /min MEDENT ( [facility], [facility]) Heart rate 65 /min 65 /min MEDENT ([facility], [facility]) Diastolic blood pressure 75 mm[Hg] 75 mm[Hg] [facility], [facility]) Systolic blood pressure 115 mm[Hg] 115 mm[Hg] [facility], [facility]) Body mass index (BMI) [Ratio] 24.8 kg/m2 24.8 k g/m2 MEDENT ([facility], [facility]) Body height 63 [in_i] 63 [in_i] MEDENT ([facility], [facility]) 5'3" Body weight 140.00 [lb_av] 140.00 [lb_av] MEDEN T ([facility], [facility]) Body temperature 98.0 [degF] 98.0 [degF] MEDENT ([facility], [facility]) Oxygen saturation in Arterial blood by Pulse oximetry 99 % 99 % MEDENT ([facility], [facility]) Respiratory rate 16 /min 16 /min MEDENT ( [facility], [facility]) Heart rate 67 /min 67 /min MEDENT ([facility], [facility]) Diastolic blood pressure 86 mm[Hg] 86 mm[Hg] MEDENT ([facility], [facility]) Systolic blood pressure 122 mm[Hg] 122 mm[Hg] M EDENT ([facility], [facility]) Patient Treatment Plan of Care Planned Activity Planned Date Details Description Data Source (s) Metronidazole 500 MG Oral Tablet 11/10/2019 12:00:00 AM EDT eCW1 ([facility]) valacyclovir 1000 MG Oral Tablet AALIYAH ([facility]) Sulfamethoxazole 800 MG / Trimethoprim 160 MG Oral Tablet AALIYAH ([facility]) Prednisone 20 MG Oral Tablet AALIYAH ([facility]) Prednisone 10 MG Oral Tablet AALIYAH ([facility]) Phenazopyridine hydrochloride 200 MG Oral Tablet AALIYAH ([facility]) Oseltamivir 75 MG Oral Capsule AALIYAH ([facility]) Ondansetron 4 MG Disintegrating Oral Tablet AALIYAH ([facility]) Omeprazole 20 MG Delayed Release Oral Capsule AALIYAH ([facility]) NITROFURANTOIN, MACROCRYSTALS 25 MG / Ni trofurantoin, Monohydrate 75 MG Oral Capsule AALIYAH ([facility]) Metronidazole 500 MG Oral Tablet AALIYAH ([facility]) gabapentin 300 MG Oral Capsule AALIYAH ([facility]) cefdinir 300 MG Oral Capsule AALIYAH ([facility]) benzonatate 200 MG Oral Capsule AALIYAH ([facility]) Azithromycin 250 MG Oral Tablet AALIYAH ([facility]) Amoxicillin 875 MG / Clavulanate 125 MG Oral Tablet AALIYAH ([facility]) valacyclovir 1000 MG Oral Tablet AALIYAH ([facility]) Sulfamethoxazole 800 MG / Trimethoprim 160 MG Oral Tablet AALIYAH ([facility]) Prednisone 10 MG Oral Tablet AALIYAH ([facility]) Phenazopyridine hydrochloride 200 MG Oral Tablet AALIYAH ([facility]) NITROFURANTOIN, MACROCRYSTALS 25 MG / Ni trofurantoin, Monohydrate 75 MG Oral Capsule AALIYAH ([facility]) Metronidazole 500 MG Oral Tablet AALIYAH ([facility]) gabapentin 300 MG Oral Capsule AALIYAH ([facility]) cefdinir 300 MG Oral Capsule AALIYAH ([facility]) benzonatate 200 MG Oral Capsule AALIYAH ([facility]) Azithromycin 250 MG Oral Tablet AALIYAH ([facility]) Amoxicillin 875 MG / Clavulanate 125 MG Oral Tablet AALIYAH ([facility]) valacyclovir 1000 MG Oral Tablet AALIYAH ([facility]) Sulfamethoxazole 800 MG / Trimethoprim 160 MG Oral Tablet AALIYAH ([facility]) Prednisone 10 MG Oral Tablet AALIYAH ([facility]) Phenazopyridine hydrochloride 200 MG Oral Tablet AALIYAH ([facility]) NITROFURANTOIN, MACROCRYSTALS 25 MG / Ni trofurantoin, Monohydrate 75 MG Oral Capsule AALIYAH ([facility]) Metronidazole 500 MG Oral Tablet AALIYAH ([facility]) gabapentin 300 MG Oral Capsule AALIYAH ([facility]) cefdinir 300 MG Oral Capsule AALIYAH ([facility]) benzonatate 200 MG Oral Capsule AALIYAH ([facility]) Azithromycin 250 MG Oral Tablet AALIYAH ([facility]) Amoxicillin 875 MG / Clavulanate 125 MG Oral Tablet AALIYAH ([facility])
[2020-08-29 11:07] LABS: HCG, SERUM QUALITATIVE NEGATIVE (NEGATIVE)
[2020-08-29 11:08] LABS: ALBUMIN 4.2 GM/DL (3.2-5.2); ALT/SGPT 25 U/L (12-78); AMYLASE 51 U/L (25-115); BILIRUBIN,DIRECT 0.1 MG/DL (0.0-0.2); BILIRUBIN,TOTAL 0.3 MG/DL (0.2-1.0); BLOOD UREA NITROGEN 6 MG/DL (7-18); CALCIUM LEVEL 9.4 MG/DL (8.5-10.1); CARBON DIOXIDE LEVEL 28 MEQ/L (21-32); CHLORIDE LEVEL 105 MEQ/L (98-107); CK-MB VALUE MASS < 1.0 NG/ML (<3.6); CPK CREATINE PHOSPHOKINASE 56 U/L (26-192); CREATININE FOR GFR 0.67 MG/DL (0.55-1.30); GLOMERULAR FILTRATION RATE > 60.0 (>60); GLUCOSE, FASTING 75 MG/DL (70-100); LIPASE 73 U/L (73-393); MB/CK RELATIVE INDEX 1.79 (< OR =4); POTASSIUM SERUM 3.8 MEQ/L (3.5-5.1); SODIUM LEVEL 138 MEQ/L (136-145); TOTAL PROTEIN 7.8 GM/DL (6.4-8.2); TROPONIN I < 0.02 NG/ML (< 0.10)
[2020-08-29] MEDS ORDERED: PANTOPRAZOLE 40MG VIAL (C9113 PER 1) IV ONE (13:15)
[2020-08-29] MEDS: MORPHINE 2 MG/ML 1ML VIAL (J2270) IV PRN ×2 (14:27→15:58)
[2020-08-29] MEDS ORDERED: NORCO, ANEXSIA 5/325MG TABLET (HYDROcodone/ACETAMINOPHEN) PO PRN (14:30)
[2020-08-29] MEDS ORDERED: CETI-14 PO (14:30)
[2020-08-29] MEDS ORDERED: ONDANSETRON 4 MG ORAL DISINTEGRATING TAB PO PRN (14:30)
[2020-08-29] MEDS ORDERED: ALBUTEROL SULFATE 2.5 MG/0.5 ML INH NEB SOLN INH PRN (14:30)
[2020-08-29] MEDS ORDERED: HYDR-3713 PO (14:30)
--- OUTSIDE RECORDS SUMMARY | 2020-08-29 14:42 | CCD ---
Author Author [facility] Organization [facility] Address Unknown Phone Unavailable Care Team Providers Care Automobile And Property Underwriter Name Role Phone NIEVES, GENARO ANTHONY RPA-C Unavailable Unavailable NIEVES, GENARO ANTHONY RPA-C Unavailable Unavailable NIEVES, GENARO ANTHONY RPA-C Unavailable Unavailable NIEVES, GENARO ANTHONY RPA-C Unavailable Unavailable NIEVES, GENARO ANTHONY RPA-C Unavailable Unavailable NIEVES, GENARO ANTHONY RPA-C Unavailable Unavailable NIEVES, GENARO ANTHONY RPA-C Unavailable Unavailable NIEVES, GENARO ANTHONY RPA-C Unavailable Unavailable NIEVES, GENARO ANHTONY RPA-C Unavailable Unavailable NIEVES, GENARO ANTHONY RPA-C [...] Unavailable Kylie Lucio MD Unavailable Unavailable Kylie Luico MD Unavailable Unavailable Kylie Lucio MD Unavailable [...] Unavailable Unavailable BenyZaheer neville MD Unavailable Unavailable La HarpeZaheer neville MD Unavailable Unavailable Zaheer Swan MD Unavailable Unavailable La HarpeZaheer neville MD Unavailable Unavailable Zaheer Swan MD Unavailable Unavailable Zaheer Swan MD Unavailable Unavailable La HarpeZaheer neville MD Unavailable Unavailable Zaheer Swan MD [...] Unavailable Unavailable BenyZaheer neville MD Unavailable Unavailable La HarpeZaheer neville MD Unavailable Unavailable La HarpeZaheer neville MD Unavailable Unavailable BenyZaheer neville MD Unavailable Unavailable La HarpeZaheer neville MD Unavailable Unavailable BenyZaheer neville MD Unavailable Unavailable La HarpeZaheer neville MD Unavailable Unavailable BenyZaheer neville MD Unavailable Unavailable La HarpeZaheer neville MD Unavailable Unavailable BenyZaheer neville MD Unavailable Unavailable BenyZaheer neville MD Unavailable Unavailable BenyZaheer MD Unavailable Unavailable La HarpeZaheer MD Unavailable Unavailable BenyZaheer MD Unavailable Unavailable La HarpeZaheer MD Unavailable Unavailable La HarpeZaheer MD Unavailable Unavailable La HarpeZaheer MD Unavailable Unavailable BenyZaheer MD Unavailable Unavailable La HarpeZaheer MD Unavailable Unavailable BenyZaheer MD Unavailable Unavailable La HarpeZaheer MD Unavailable Unavailable La HarpeZaheer MD Unavailable Unavailable La HarpeZaheer MD Unavailable Unavailable La HarpeZaheer MD Unavailable Unavailable La HarpeZaheer MD Unavailable Unavailable BenyZaheer MD Unavailable Unavailable BenyZaheer MD Unavailable Unavailable BenyZaheer MD Unavailable Unavailable La HarpeZaheer MD Unavailable Unavailable La HarpeZaheer MD Unavailable Unavailable La HarpeZaheer MD Unavailable Unavailable BenyZaheer MD Unavailable Unavailable BenyZaheer MD Unavailable Unavailable BenyZaheer MD Unavailable Unavailable BenyZaheer MD Unavailable Unavailable BenyZaheer MD Unavailable Unavailable La HarpeZaheer MD Unavailable Unavailable BenyZaheer MD Unavailable Unavailable BenyZaheer MD Unavailable Unavailable La HarpeZaheer neville MD Unavailable Unavailable BenyZaheer MD Unavailable Unavailable La HarpeZaheer MD Unavailable Unavailable La HarpeZaheer MD Unavailable Unavailable BenyZaheer MD Unavailable Unavailable La HarpeZaheer MD Unavailable Unavailable BenyZaheer MD Unavailable Unavailable La HarpeZaheer neville MD Unavailable Unavailable La HarpeZaheer neville MD Unavailable Unavailable La HarpeaZheer neville MD Unavailable Unavailable BenyZaheer neville MD Unavailable Unavailable BenyZaheer neville MD Unavailable Unavailable BenyZaheer neville MD Unavailable Unavailable La HarpeZaheer neville MD Unavailable Unavailable La HarpeZaheer neville MD Unavailable Unavailable La HarpeZaheer neville MD Unavailable Unavailable BenyZaheer MD Unavailable Unavailable BenyZaheer MD Unavailable Unavailable Gutiérrez, Shahida IT SUPPORT CONSULTANT Unavailable Unavailable Gutiérrez, Shahida IT SUPPORT CONSULTANT Unavailable Unavailable Gutiérrez, Shahida IT SUPPORT CONSULTANT Unavailable Unavailable Gutiérrez, Shahida IT SUPPORT CONSULTANT Unavailable Unavailable Gutiérrez, Shahida IT SUPPORT CONSULTANT Unavailable Unavailable Gutiérrez, Shahida IT SUPPORT CONSULTANT Unavailable Unavailable Gutiérrez, Shahida IT SUPPORT CONSULTANT Unavailable Unavailable Gutiérrez, Shahida IT SUPPORT CONSULTANT Unavailable Unavailable Gutiérrez, Shahida IT SUPPORT CONSULTANT Unavailable Unavailable Gutiérrez, Shahida IT SUPPORT CONSULTANT Unavailable Unavailable Gutiérrez, Shahida IT SUPPORT CONSULTANT Unavailable Unavailable Demetris, Khushbu CARPENTER SUPERVISOR CARPENTER SUPERVISOR Unavailable Unavailable NIEVES, GENARO ANTHONY RPA-C Unavailable Unavailable NIEVES, GENARO ANTHONY RPA-C Unavailable Unavailable NIEVES, GENARO ANTHONY RPA-C Unavailable Unavailable NIEVES, GENARO ANTHONY RPA-C Unavailable Unavailable NIEVES, GEANRO ANTHONY RPA-C Unavailable Unavailable NIEVES, GENARO ANTHONY [...] NIEVES, GENARO ANTHONY RPA-C Unavailable Unavailable NIEVES, GNEARO ANTHONY RPA-C Unavailable Unavailable NIEVES, GENARO ANTHONY [...] Martina PA Unavailable Unavailable Gayle, Brissa Unavailable [phone] Gayle, Brissa Unavailable [phone] [facility], RFROST NIEVES PA ANTHONY Unavailable Unavailable [...] is protected by Article 27-F of the [facility] Public Health law. If you continue you may have access to information: Regarding HIV / AIDS; Provided by facilities licensed or operated by the [facility] Office of Mental Health; or Provided by the [facility] Office for People With Developmental Disabilities. If such information is present, then the following [facility] mandated warning applies: This information has been [...] law may result in a fine or detention sentence or both. A general authorization for the release of medical or other information is NOT sufficient authorization for further disc losure. Allergies and Adverse Reactions Type Description Substance Reaction Status Data Source(s ) No Known Drug Allergies No Known Drug Allergies [facility] Family History Family Member Name Family Member Gender Family Member Status Date o f Status Description Data Source(s) Unknown Female Problem MEDENT ([facility]) Unknown Unknown Problem MEDENT ([facility], ) Negative for inflammatory bowel disease, positive for colorectal carcinoma in her grandfather Unknown Unknown Problem [facility] ([facility] ) Unknown Unknown Problem MEDENT ([facility], ) Unknown Unknown Problem MEDENT ([facility], ) Unknown Unknown Problem MEDENT ([facility], ) Unknown Unknown Problem MEDENT ([facility], ) Encounters Encounter Providers Location Date Indications Data Source(s ) Aracelis Araujo MD: [address] [place] [address], [facility] [address], [place] [address], Ph. Attender: Aracelis Araujo [place] - [facility] Medical 08/27/2020 12:00:00 AM MADISON FISCHER ([facility]) Gregg Lucio MD: [address] [place] [address], Ph. Attender: Gregg Lucio MD [facility] Medical 08/05/2020 12:00:00 AM EST AALIYAH ([facility]) Gregg Lucio MD: [address] [place] [address], Ph. Attender: Gregg Lucio MD [facility] Medical 08/05/2020 12:00:00 AM EST AALIYAH ([facility]) Outpatient Attender: Martina kidd 07/10/2020 09:00:00 AM EST MEDENT ([facility], [facility]) Outpatient Attender: Shahida gipson 06/05/2020 02:00:00 PM EST MEDENT ([facility], [facility]) Outpatient Attender: VARSHA CRUZ [facility] 04/12 10:42:03 AM EDT [facility] Outpatient Attender: ANTHONY LAI [facility] 05/03/2020 10:42:02 AM EDT [facility] Outpatient Attender: ANTHONY LAI [facility] 05/03/2020 10:41:01 AM EDT [facility] Outpatient Attender: VARSHA CRUZ [facility] 04/12 10:41:00 AM EDT [facility] ANGIE RomeroC: [address], [place] [address], Ph. Attender: ANTHONY LAI [facility] Medical 05/03/2020 12:00:00 AM EDT AALIYAH ([facility]) ANGIE RomeroC: [address], [place] [address], Ph. Attender: ANTHONY LAI [facility] Medical 05/03/2020 12:00:00 AM EDT AALIYAH ([facility]) JOELLE Romero: [address] [facility] [address], [place] [address], Ph. Attender: ANTHONY LAI [facility] Medical 05/03/2020 12:00:00 AM EDT AALIYAH ([facility]) Outpatient Attender: VARSHA CRUZ [facility] 04/11 11:41:00 AM EDT [facility] Outpatient Attender: SAMUEL henderson 04/10/2020 10:15:00 AM EDT MEDENT ([facility], [facility]) Outpatient Attender: VARSHA CRUZ [facility] 09/2019 09:17:00 AM EDT [facility] Outpatient Attender: VARSHA CRUZ [facility] 08/2019 10:10:01 AM EDT [facility] Outpatient Attender: ANTHONY LAI [facility] 02/23/2020 10:54:01 AM EDT [facility] Outpatient Attender: VARSHA CRUZ [facility] 02/09 10:33:00 AM EDT [facility] Outpatient Attender: VARSHA CRUZ [facility] 01/10 05:40:02 PM EDT [facility] Outpatient Attender: ANTHONY LAI [facility] 02/06/2020 05:40:01 PM EDT [facility] Outpatient Attender: VARSHA CRUZ [facility] 01/10 01:21:00 PM EDT [facility] Outpatient Attender: VARSHA CRUZ [facility] 01/10 10:42:01 AM EDT [facility] Outpatient Attender: VARSHA CRUZ [facility] 01/10 05:33:01 PM EDT [facility] Outpatient Attender: ANTHONY LAI [facility] 01/30/2020 05:32:59 PM EDT [facility] Outpatient Attender: VARSHA GREENE [facility] 01/10 10:58:03 AM EDT [facility] Outpatient Attender: ANTHONY NIEVES RPA-C [facility] 01/29/2020 10:58:01 AM EDT [facility] Outpatient Attender: Shahida gipson 01/26/2020 12:30:00 PM EDT MEDENT ([facility]) [facility] 01/09 02:46:00 PM EDT [facility] Outpatient Attender: MARTIN SALAZAR 01/18/2020 10:40:01 A M EDT [facility] Outpatient Attender: MARTIN SALAZAR 01/08/2020 10:59:00 A M EDT [facility] Outpatient Attender: Shahida gipson 12/29/2019 09:50:00 AM EDT MEDENT ([facility]) Outpatient [address] [facility] [id number] 12/11/2019 12:00:00 AM EDT eC1 ([facility]) [facility] [address] [place] [address] 11/10/2019 12:00:00 AM EDT [facility] ([facility]) Outpatient Attender: MARTIN SALAZAR FP 11/07/2019 03:11:00 P M EDT [facility] Outpatient 10/28/2019 07:43:00 AM EDT [facility] Outpatient Attender: KISHORE YUNG MD Physical Therapy 10:30:00 AM EDT MEDENT ([facility]) Outpatient Attender: SAMUEL henderson 10/16/2019 04:10:00 PM EDT MEDENT ([facility]) Outpatient Attender: MARTIN SALAZAR FP 10/11/2019 03:50:00 P M EDT [facility] Outpatient 10/10/2019 02:00:00 PM EDT [facility] Emergency Attender: Isai SERRANO-CConsultant: Pedrito Swan MD 10/10/2019 01:38:00 PM EDT - 10/10/2019 04:48:00 PM EDT [facility] Patient discharged. Outpatient Attender: Shahida gipson 10/03/2019 11:00:00 AM EDT MEDENT ([facility], [facility]) Outpatient Attender: Tanvi Dias Prim marti 09/26/2019 05:15:00 PM EDT MEDENT ([facility], [facility]) Outpatient Attender: MARTIN MOSS 08/09/2019 11:44:00 A M EST [facility] Medications Medication Brand Name Start Date [...] Prednisone 07/10/2020 12:00:00 AM EST active MEDENT ([facility], [facility]) 20 mg 07/10/2020 12:00:00 AM EST tablet 15 TAKE ONE TABLET BY MOUTH THREE TIMES A DAY FOR 5 DAYS TAKE ONE TABLET BY MOUTH THREE TIMES A DAY FOR 5 DAYS SOLD: 07/10/2020 [facility] Oseltamivir 75 MG Oral Capsule Oseltamivir Phosphate 06/05/2020 12:00:00 AM EST ORAL completed MEDENT ([facility], [facility]) 75 mg 06/05/2020 12:00:00 AM EST [...] 04/10/2020 12:00:00 AM EDT ORAL completed MEDENT ([facility], [facility]) Phenazopyridine hydrochloride 200 MG Oral Tablet [Pyridium] Pyridium 04/10/2020 12:00:00 AM EDT ORAL completed [facility] ([facility]) 20 mg 02/27/2020 12:00:00 AM EDT [...] TABLET BY MOUTH EVERY DAY SOLD: 04/10/2020 [facility] 400 mg 02/23/2020 12:00:00 AM EDT [...] 01/26/2020 12:00:00 AM EDT ORAL completed MEDENT ([facility]) 300 mg 01/26/2020 12:00:00 AM EDT capsule 20 TAKE ONE CAPSULE BY MOUTH TWICE A DAY FOR 10 DAYS TAKE ONE CAPSULE BY MOUTH TWICE A DAY FOR 10 DAYS SOLD : 01/26/2020 [facility] valacyclovir 1000 MG Oral Tablet Valacyclovir HCL 01/26/2020 12:00: 00 AM EDT completed MEDENT ([facility]) 1 gram 01/26/2020 [...] 12/29/2019 12:00:00 AM EDT ORAL completed MEDENT ([facility]) 500 mg 11/10/2019 12:00:00 AM EDT tablet [...] {tablet} suspended Metronid azole 500 MG eCW1 ([facility]) Metronidazole 500 MG Oral Tablet Metronidazole 500 MG 2019 12:00:00 AM EDT active 1 tablet eCW1 ([facility]) 300 mg 10/10/2019 12:00:00 AM EDT [...] 10/03/2019 12:00:00 AM EDT ORAL completed MEDENT ([facility]) Prednisone 10 MG Oral Tablet Prednisone 10/03/2019 12:00:00 AM EDT completed MEDENT ([facility]) 10 mg 10/03/2019 12:00:00 AM EDT tablet [...] 09/27/2019 12:00:00 AM EDT RESPIRATORY completed MEDENT ([facility]) 90 mcg/actuation 09/27/2019 12:00:00 AM EDT HFA aerosol inha ler 18 INHALE TWO PUFFS BY MOUTH EVERY 4-6 HOURS NEEDED FOR SOB/WHEEZE INHALE TWO PUFFS BY MOUTH EVERY 4-6 HOURS NEEDED FOR SOB/WHEEZE SOLD: 09/27/2019 [id number] Prednisone 10 MG Oral Tablet Prednisone 09/26/2019 12:00:00 AM EDT ORAL completed MEDENT ([facility]) 10 mg 09/26/2019 12:00:00 AM EDT tablet [...] 20 MG Delayed Release Oral Capsule AALIYAH ([facility]) NITROFURANTOIN, MACROCRYSTALS 25 MG / Ni trofurantoin, Monohydrate 75 MG Oral Capsule nitrofurantoin monohydrate/macrocrystals 100 mg capsule nitrofurantoin monohydrate/macrocrystals 100 mg capsule completed nitrofurantoin, macrocrystals 25 MG / nitrofurantoin, monohydrate 75 MG Oral Capsule WACO ([facility]) benzonatate 200 MG Oral Capsule benzonatate 200 mg cap yared benzonatate 200 mg capsule completed benzonatate 20 0 MG Oral Capsule WACO ([facility]) Prednisone 10 MG Oral Tablet prednisone 10 mg tablet prednisone 10 mg tablet completed prednisone 10 MG Oral Tablet WACO ([facility]) Sulfamethoxazole 800 MG / Trimethoprim 1 60 MG Oral Tablet sulfamethoxazole 800 mg-trimethoprim 160 mg tablet sulfamethoxazole 800 mg-trimethoprim 160 mg tablet completed sulfame thoxazole 800 MG / trimethoprim 160 MG Oral Tablet WACO ([facility]) Metronidazole 500 MG Oral Tablet metronidazole 500 mg tablet metronidazole 500 mg tablet completed metronidazol e 500 MG Oral Tablet WACO ([facility]) Sulfamethoxazole 800 MG / Trimethoprim 1 60 MG Oral Tablet sulfamethoxazole 800 mg-trimethoprim 160 mg tablet sulfamethoxazole 800 mg-trimethoprim 160 mg tablet completed sulfame thoxazole 800 MG / trimethoprim 160 MG Oral Tablet WACO ([facility]) NITROFURANTOIN, MACROCRYSTALS 25 MG / Ni trofurantoin, Monohydrate 75 MG Oral Capsule nitrofurantoin monohydrate/macrocrystals 100 mg capsule nitrofurantoin monohydrate/macrocrystals 100 mg capsule completed nitrofurantoin, macrocrystals 25 MG / nitrofurantoin, monohydrate 75 MG Oral Capsule WACO ([facility]) gabapentin 300 MG Oral Capsule gabapentin 300 mg capsu le gabapentin 300 mg capsule completed gabapentin 300 MG Oral Capsule WACO ([facility]) Azithromycin 250 MG Oral Tablet azithromycin 250 mg ta blet azithromycin 250 mg tablet completed azithromycin 25 0 MG Oral Tablet WACO ([facility]) benzonatate 200 MG Oral Capsule benzonatate 200 mg cap yared benzonatate 200 mg capsule completed benzonatate 20 0 MG Oral Capsule WACO ([facility]) valacyclovir 1000 MG Oral Tablet valacyclovir 1 gram t ablet valacyclovir 1 gram tablet completed valacyclovir 10 00 MG Oral Tablet AALIYAH ([facility]) gabapentin 300 MG Oral Capsule gabapentin 300 mg capsu le gabapentin 300 mg capsule completed gabapentin 300 MG Oral Capsule WACO ([facility]) NITROFURANTOIN, MACROCRYSTALS 25 MG / Ni trofurantoin, Monohydrate 75 MG Oral Capsule nitrofurantoin monohydrate/macrocrystals 100 mg capsule nitrofurantoin monohydrate/macrocrystals 100 mg capsule completed nitrofurantoin, macrocrystals 25 MG / nitrofurantoin, monohydrate 75 MG Oral Capsule WACO ([facility]) Metronidazole 500 MG Oral Tablet metronidazole 500 mg tablet metronidazole 500 mg tablet completed metronidazol e 500 MG Oral Tablet WACO ([facility]) Azithromycin 250 MG Oral Tablet azithromycin 250 mg ta blet azithromycin 250 mg tablet completed azithromycin 25 0 MG Oral Tablet WACO ([facility]) Prednisone 10 MG Oral Tablet prednisone 10 mg tablet prednisone 10 mg tablet completed prednisone 10 MG Oral Tablet WACO ([facility]) cefdinir 300 MG Oral Capsule cefdinir 300 mg capsule cefdinir 30 0 mg capsule completed cefdinir 300 M G Oral Capsule WACO ([facility]) Amoxicillin 875 MG / Clavulanate 125 MG Oral Tablet amoxicillin 875 mg-potassium clavulanate 125 mg tablet amoxicillin 875 mg-potassium clavulanate 125 mg tablet completed amoxici llin 875 MG / clavulanate 125 MG Oral Tablet WACO ([facility]) gabapentin 300 MG Oral Capsule gabapentin 300 mg capsu le gabapentin 300 mg capsule completed gabapentin 300 MG Oral Capsule WACO ([facility]) Azithromycin 250 MG Oral Tablet azithromycin 250 mg ta blet azithromycin 250 mg tablet completed azithromycin 25 0 MG Oral Tablet WACO ([facility]) Sulfamethoxazole 800 MG / Trimethoprim 1 60 MG Oral Tablet sulfamethoxazole 800 mg-trimethoprim 160 mg tablet sulfamethoxazole 800 mg-trimethoprim 160 mg tablet completed sulfame thoxazole 800 MG / trimethoprim 160 MG Oral Tablet WACO ([facility]) Prednisone 20 MG Oral Tablet prednisone 20 mg tablet TAKE ONE TABLET BY MOUTH THREE TIMES A DAY FOR 5 DAYS prednisone 20 mg tablet TAKE ONE TABLET BY MOUTH THREE TIMES A DAY FOR 5 DAYS completed prednisone 20 MG Oral Tablet WACO ([facility]) Phenazopyridine hydrochloride 200 MG Oral Tablet phena zopyridine 200 mg tablet phenazopyridine 200 mg tablet complete d phenazopyridine hydrochloride 200 MG Oral Tablet AALIYAH ([facility]) Phenazopyridine hydrochloride 200 MG Oral Tablet phena zopyridine 200 mg tablet phenazopyridine 200 mg tablet complete d phenazopyridine hydrochloride 200 MG Oral Tablet AALIYAH ([facility]) Amoxicillin 875 MG / Clavulanate 125 MG Oral Tablet amoxicillin 875 mg-potassium clavulanate 125 mg tablet amoxicillin 875 mg-potassium clavulanate 125 mg tablet completed amoxici llin 875 MG / clavulanate 125 MG Oral Tablet AALIYAH ([facility]) cefdinir 300 MG Oral Capsule cefdinir 300 mg capsule cefdinir 30 0 mg capsule completed cefdinir 300 M G Oral Capsule WACO ([facility]) Metronidazole 500 MG Oral Tablet metronidazole 500 mg tablet metronidazole 500 mg tablet completed metronidazol e 500 MG Oral Tablet WACO ([facility]) Phenazopyridine hydrochloride 200 MG Oral Tablet phena zopyridine 200 mg tablet phenazopyridine 200 mg tablet complete d phenazopyridine hydrochloride 200 MG Oral Tablet AALIYAH ([facility]) Oseltamivir 75 MG Oral Capsule oseltamiv ir 75 mg capsule TAKE ONE CAPSULE BY MOUTH TWICE A DAY FOR 5 DAYS oseltamivir 75 mg capsule TAKE ONE CAPSU LE BY MOUTH TWICE A DAY FOR 5 DAYS completed oseltamivir 75 MG Oral Capsule WACO ([facility]) valacyclovir 1000 MG Oral Tablet valacyclovir 1 gram t ablet valacyclovir 1 gram tablet completed valacyclovir 10 00 MG Oral Tablet AALIYAH ([facility]) benzonatate 200 MG Oral Capsule benzonatate 200 mg cap yared benzonatate 200 mg capsule completed benzonatate 20 0 MG Oral Capsule WACO ([facility]) Amoxicillin 875 MG / Clavulanate 125 MG Oral Tablet amoxicillin 875 mg-potassium clavulanate 125 mg tablet amoxicillin 875 mg-potassium clavulanate 125 mg tablet completed amoxici llin 875 MG / clavulanate 125 MG Oral Tablet AALIYAH ([facility]) Ondansetron 4 MG Disintegrating Oral Tab let ondansetron 4 mg disintegrating tablet DISSOLVE ONE TABLET ON TONGUE EVERY 6 TO 8 HOURS NEEDED FOR NAUSEA AND VOMITING ondansetron 4 mg disintegrating tablet D ISSOLVE ONE TABLET ON TONGUE EVERY 6 TO 8 HOURS NEEDED FOR NAUSEA AND VOMITING completed ondansetron 4 MG Disintegrating Oral Tablet AALIYAH ([facility]) valacyclovir 1000 MG Oral Tablet valacyclovir 1 gram t ablet valacyclovir 1 gram tablet completed valacyclovir 10 00 MG Oral Tablet AALIYAH ([facility]) cefdinir 300 MG Oral Capsule cefdinir 300 mg capsule cefdinir 30 0 mg capsule completed cefdinir 300 M G Oral Capsule AALIYAH ([facility]) Prednisone 10 MG Oral Tablet prednisone 10 mg tablet prednisone 10 mg tablet completed prednisone 10 MG Oral Tablet AALIYAH ([facility]) Insurance Providers Payer name Policy type / Coverage type Policy ID Covered alliance party ID Covered alliance party's relationship to miller Policy Miller Plan Information [facility] [id number] SP [id number] [place]ED[place] [id number] SP [id number] [facility] [id number] SP [id number] Managed Care - [facility] Plan P [id number] S [id number] Medicaid S [id number] S [id number] [facility] O [id number] S [id number] [facility] AMERICHOICE [id number] [id number] 18 [id number] [employer] [id number] SP [id number] Managed Care - [facility] Plan P [id number] S [id number] Cristobal John () Workers Compensation [id number] Self [id number] [facility] Medigap Part [id number] Self [id number] Medicaid [place] Medigap Part B [id number] Self [id number] [facility] Plan Commercial [id number] Self [id number] Cristobal John () Workers Compensation [id number] Self [id number] [facility] Plan Medigap Part B [id number] Self [id number] Managed Care - [facility] P [id number] S [id number] Managed Care [facility] P [id number] S [id number] Medicaid S [id number] S [id number] [facility] Maintenance Organization ([facility] [id number] Self [id number] MEDICAID [id number] SP [id number] [facility] COMMUNITY PLAN [facility] [id number] SP [id number] [facility] Health Maintenance Organization (HMO) [phone] Self [phone] [facility] COMMUNITY [facility]AN [facility] [id number] SP [id number] SELF PAY O UNAVAILABLE S UNAVAILA BLE [place] INS NO FAULT UNAVAILABLE SP UNAVAILABLE MEDICAID [id number] SP [id number] Problems, Conditions, and Diagnoses Code Display Name Description Problem Type Effective Dates Data Source(s) 275.09 Iron deficiency Iron deficiency 02/23/2020 10:5 2:50 AM EDT [facility] 530.81 Gastro-esophageal reflux disease without esophagitis Gastro-esophageal reflux disease without esophagitis 02/23/2020 10:52:50 AM ED T [facility] 672895017 Finding of esophagus Finding of Esophagus Problem 02/23/2020 12:00:00 AM EDT [facility]) 599827837 Gastroesophageal reflux disease without esophagitis Gastroesophageal Reflux Disease without Esophagitis Problem 02/23/2020 12:00:00 AM ED T [facility]) 52393284 Iron deficiency Iron Deficiency Problem 02/23/2020 12:0 0:00 AM EDT WACO ([facility]) 306545900 Gastroesophageal reflux disease without esophagitis Gastroesophageal Reflux Disease without Esophagitis Problem 02/23/2020 12:00:00 AM ED T WACO ([facility]) 40740347 Iron deficiency Iron Deficiency Problem 02/23/2020 12:0 0:00 AM EDT WACO ([facility]) 932728850 Gastroesophageal reflux disease without esophagitis Gastroesophageal Reflux Disease without Esophagitis Problem 02/23/2020 12:00:00 AM ED T WACO ([facility]) 85766658 Iron deficiency Iron Deficiency Problem 02/23/2020 12:0 0:00 AM EDT [facility]) 278.02 Overweight Overweight 01/18/2020 10:39:35 AM ED T [facility] 45902306 Allergic rhinitis, unspecified Allergic rhinitis, unsp ecified 01/18/2020 10:39:35 AM EDT [facility] Z00.00 Encounter for general adult medical examination without abnormal findings Encounter for general adult medical examination without abno rmal findings 01/18/2020 10:39:35 AM EDT [facility] 889986736 Mild persistent asthma, uncomplicated Mi ld persistent asthma, uncomplicated 01/18/2020 10:39:35 AM EDT [facility] 333.94 Restless legs Restless legs 01/18/2020 10:39:35 AM EDT [facility] Z68.26 Body mass index (BMI) 26.0-26.9, adult B nino mass index [BMI] 26.0-26.9, adult 01/18/2020 10:39:35 AM EDT [facility] 559734479 Asthma Asthma Problem 01/18/2020 12:00:00 AM ED T WACO ([facility]) 988223955 SNOMED CT Concept SNOMED CT Concept Problem 01/17 12:00:00 AM EDT - 05/03/2020 12:00:00 AM EDT WACO ([facility]) 661417526 Uncomplicated mild persistent asthma Unc omplicated Mild Persistent Asthma Problem 01/18/2020 12:00:00 AM EDT WACO ([facility]) 09787532 Allergic rhinitis Allergic Rhinitis Problem 01/18/2020 12:00:00 AM EDT WACO ([facility]) 354159947 Overweight Overweight Problem 01/18/2020 12:00:00 AM ED T WAC[facility] ([facility]) 963313602 SNOMED CT Concept SNOMED CT Concept Problem 01/17 12:00:00 AM EDT - 05/03/2020 12:00:00 AM EDT WACO ([facility]) 376464021 Uncomplicated mild persistent asthma Unc omplicated Mild Persistent Asthma Problem 01/18/2020 12:00:00 AM EDT WACO ([facility]) 79267554 Allergic rhinitis Allergic Rhinitis Problem 01/18/2020 12:00:00 AM EDT WACO ([facility]) 426364085 Overweight Overweight Problem 01/18/2020 12:00:00 AM ED T [facility] ([facility]) 948602252 SNOMED CT Concept SNOMED CT Concept Problem 01/17 12:00:00 AM EDT - 05/03/2020 12:00:00 AM EDT [facility]AC[facility] ([facility]) 184682316 Uncomplicated mild persistent asthma Unc omplicated Mild Persistent Asthma Problem 01/18/2020 12:00:00 AM EDT WACO ([facility]) 21217817 Allergic rhinitis Allergic Rhinitis Problem 01/18/2020 12:00:00 AM EDT WACO ([facility]) 283119837 Overweight Overweight Problem 01/18/2020 12:00:00 AM ED T WACO ([facility]) N76.0 155157356 Acute vaginitis Problem 11/10/2019 12:00:00 AM EDT [facility]) N76.0 673511971 Acute vaginitis Problem 11/10/2019 12:00:00 AM EDT [facility]) 143281906 Clinical finding Clinical Finding Problem 017 12:00:00 AM EDT - 05/03/2020 12:00:00 AM EDT WACO ([facility]) 293711233 Clinical finding Clinical Finding Problem 017 12:00:00 AM EDT - 05/03/2020 12:00:00 AM EDT [facility] ([facility]) 766093064 Clinical finding Clinical Finding Problem 017 12:00:00 AM EDT - 05/03/2020 12:00:00 AM EDT WACO ([facility]) B40447 Personal history of nicotine dependence Personal history of nicotine dependence Diagnosis 10/10/2019 01:38:00 PM EDT [facility] N47648 Unspecified asthma, uncomplicated Unspecified as thma, uncomplicated Diagnosis 10/10/2019 01:38:00 PM EDT [facility] J189 Pneumonia, unspecified organism Pneumonia, unspecified organism Diagnosis 10/10/2019 01:38:00 PM EDT [facility] R0600 Dyspnea, unspecified Dyspnea, unspecified Diagnosis 10/10/2019 01:38:00 PM EDT [facility] Surgeries/Procedures Procedure Description Date Indications Data Source(s) MRI, abdomen, w/wo contrast 08/27/2020 12:00:00 AM EST AALIYAH ([facility]) PRESSURIZED/NONPRESSURIZED INHALATION TREATMENT 2019 12:00:00 AM EST MEDENT ([facility] [place]) RADEX TOE MINIMUM 2 VIEWS 11/14/2019 12:00:00 AM EDT MEDENT ([facility] ) SMEAR, WET MOUNT, SALINE/INK 11/10/2019 12:00:00 AM ED T eCW1 ([facility]) RADEX TOE MINIMUM 2 VIEWS 10/24/2019 12:00:00 AM EDT MEDENT ([facility] ) FX Phalanx Excl GR Toe W/O Manipulation 10/17/2019 12: 00:00 AM EDT MEDENT ([facility] ) RADEX TOE MINIMUM 2 VIEWS 10/17/2019 12:00:00 AM EDT MEDENT ([facility] ) Results ID Date Data Source [id number] 08/21/2020 09:59:00 AM EST AALIYAH ([facility]) Name Value Range Interpretation Code Description Data Radha rce(s) Supporting Document(s) lipase 877 U/L 73-393 Above high normal Lipase WACO ([facility]) ID Date Data Source [id number] 08/21/2020 09:59:00 AM EST AALIYAH ([facility]) Name Value Range Interpretation Code Description Data Radha rce(s) Supporting Document(s) blood urea nitrogen 9 mg/dL 7-18 normal Blood Urea Nitro gen AALIYAH ([facility]) creatinine for GFR 0.64 mg/dL 0.55-1.30 normal Creatinine for GF R WACO ([facility]) glucose, fasting 91 mg/dL 70-100 normal Glucose, Fasting AT [facility] ([facility]) carbon dioxide level 23 mEq/L 21-32 normal Carbon Dioxide Level WACO ([facility]) glomerular filtration rate > 60.0 >60 normal Glomerula r Filtration Rate WACO ([facility]) potassium serum 3.7 mEq/L 3.5-5.1 normal Potassium Serum ATH ([facility]) sodium level 139 mEq/L 136-145 normal Sodium Level AALIYAH ([facility]) chloride level 108 mEq/L 98-107 Above high normal Chloride Level AALIYAH ([facility]) calcium level 8.5 mg/dL 8.5-10.1 normal Calcium Level AALIYAH ( [facility]) anion gap 8 mEq/L 8-16 normal Anion Gap AALIYAH ([facility]) ID Date Data Source [id number] 08/21/2020 09:59:00 AM EST AALIYAH ([facility]) Name Value Range Interpretation Code Description Data Radha rce(s) Supporting Document(s) ALT/SGPT 25 U/L 12-78 normal ALT/SGPT AALIYAH ([facility]) bilirubin,total 0.3 mg/dL 0.2-1.0 normal Bilirubin,total ATHE ([facility]) AST/SGOT 17 U/L 7-37 normal AST/SGOT AALIYAH ([facility]) alkaline phosphatase 80 U/L 45-117 normal Alkaline Phosph atase AALIYAH ([facility]) total protein 8.0 gm/dL 6.4-8.2 normal Total Protein AALIYAH ( [facility]) albumin 4.0 gm/dL 3.2-5.2 normal Albumin AALIYAH ([facility]) bilirubin,direct < 0.1 0.0-0.2 normal Bilirubin,direct AT [facility]) albumin/globulin ratio 1.2-2.2 Below low normal Albumin /globulin Ratio AALIYAH ([facility]) ID Date Data Source [id number] 08/21/2020 09:59:00 AM EST AALIYAH ([facility]) Name Value Range Interpretation Code Description Data Radha rce(s) Supporting Document(s) red blood count 4.48 10 4.00-5.40 normal Red Blood Count ATHE ([facility]) white blood count 7.9 10 4.0-10.0 normal White Blood Count AALIYAH ([facility]) hemoglobin 11.0 g/dL 12.0-15.5 Below low normal Hemoglobin AALIYAH ( [facility]) mean corpuscular hemoglobin 24.6 pg 27.0-33.0 Below low nor mal Mean Corpuscular Hemoglobin AALIYAH ([facility]) mean corpuscular HGB conc 30.7 g/dL 32.0-36.5 Below low lloyd l Mean Corpuscular HGB Conc AALIYAH ([facility]) mean corpuscular volume 79.9 fL 80.0-96.0 Below low normal Mean Corpuscular Volume AALIYAH ([facility]) hematocrit 35.8 % 36.0-47.0 Below low normal Hematocrit AALIYAH ( [facility]) red cell distribution width 16.2 % 11.5-14.5 Above high no rmal Red Cell Distribution Width AALIYAH ([facility]) neutrophils % 67.7 % 36.0-66.0 Above high normal Neutrophils % A THENA ([facility]) platelet count, automated 436 10 150-450 normal Platelet C ount, Automated AALIYAH ([facility]) lymph % 22.0 % 24.0-44.0 Below low normal Lymph % WACO ( [facility]) mono % 6.7 % 0.0-5.0 Above high normal Mayes % WACO ([facility]) baso % 1.3 % 0.0-1.0 Above high normal Baso % WACO ([facility]) immature granulocyte % 0.5 % 0-3.0 normal Immature Gran ulocyte % AALIYAH ([facility]) eos % 1.8 % 0.0-3.0 normal Eos % AALIYAH ([facility]) neutrophils # 5.3 10 1.5-8.5 normal Neutrophils # AALIYAH ( [facility]) mono # 0.5 10 0.0-0.8 normal Mayes # AALIYAH ([facility]) lymph # 1.7 10 1.5-5.0 normal Lymph # WACO ([facility]) nucleated red blood cell % 0.0 % 0-0 normal Nucleated Red Blood Cell % AALIYAH ([facility]) baso # 0.1 10 0.0-0.2 normal Baso # AALIYAH ([facility]) eos # 0.1 10 0.0-0.5 normal Eos # AALIYAH ([facility]) ID Date Data Source [id number] 08/21/2020 09:58:00 AM EST WACO ([facility]) Name Value Range Interpretation Code Description Data Radha rce(s) Supporting Document(s) pH,urine rfx 5.0 units 5.0-9.0 normal pH,urine Rfx [facility] ([facility]) color, urine rfx yellow yellow normal Color, Urine Rfx AT [facility] ([facility]) appearance, urine rfx clear clear normal Appearance, Ur ine Rfx WACO ([facility]) glucose, urine (UA) auto rfx negative negative normal Glucose, Urine (UA) Auto Rfx W[facility]O ([facility]) specific gravity ur auto rfx 1.002-1.035 normal Specif ic [place] Ur Auto Rfx WACO ([facility]) ketone, urine auto rfx negative negative normal Ketone, Urine Auto Rfx [facility] ([facility]) protein, urine auto rfx negative negative normal Protein, Uri ne Auto Rfx WACO ([facility]) nitrite, urine auto rfx negative negative normal Nitrite, Uri ne Auto Rfx W[facility]O ([facility]) bilirubin, urine auto rfx negative negative normal Bilirubin, Urine Auto Rfx [facility]O ([facility]) urobilinogen, urine auto rfx 0.2 mg/dL 0.0-2.0 normal Urobilinogen, Urine Auto Rfx WACO ([facility]) blood, urine blood rfx negative negative normal Blood, Urine Blood Rfx WACO ([facility]) WBC, urine auto rfx 1 /hpf 0-3 normal WBC, Urine Auto Rfx WACO ([facility]) RBC, urine auto rfx 1 /hpf 0-3 normal RBC, Urine Auto Rfx WACO ([facility]) leukocyte esterase ur auto rfx negative negative normal Leukocyte Esterase Ur Auto Rfx WACO ([facility]) bacteria, urine auto rfx negative negative normal Bacteria, U rine Auto Rfx W[facility]O ([facility]) hyaline cast, urine auto rfx 0 /lpf 0-1 normal Hyaline Cast, Urine Auto Rfx WACO ([facility]) mucus, urine rfx small negative normal Mucus, Urine Rfx AT [facility] ([facility]) squam epithelial cell ur aurfx 1 /hpf 0-6 normal Squam Epithelial Cell Ur Aurfx WACO ([facility]) ID Date Data Source [id number] 08/05/2020 11:18:00 AM EST [facility]) Name Value Range Interpretation Code Description Data Radha rce(s) Supporting Document(s) sars-cov-2 negative negative normal Sars-cov-2 WACO ([facility]) ID Date Data Source [id number] 08/05/2020 10:15:00 AM EST [facility] Name Value Range Interpretation Code Description Data Radha rce(s) Supporting Document(s) SARS coronavirus 2 RdRp gene [Presence] in Respiratory specimen by STEPHANIE with probe detection Not detected [facility] This lab was ordered by [facility] and reported by [facility]. ID Date Data Source [id number] 07/10/2020 12:00:00 AM EST [facility] Name Value Range Interpretation Code Description Data Radha rce(s) Supporting Document(s) SARS coronavirus 2 Ag Negative [facility] This lab was ordered by [facility] and reported by [facility] ID Date Data Source [id number] 05/03/2020 11:21:00 AM EDT WACO ([facility]) Name Value Range Interpretation Code Description Data Radha rce(s) Supporting Document(s) Leukocytes - Leukocytes AALIYAH ([facility]) Specific [place] Specific [place] AT [facility]) Nitrite negative Nitrite AALIYAH ([facility]) Protein trace Protein WACO ([facility]) Urobilinogen negative Urobilinogen WACO ([facility]) pH Ph AAILYAH ([facility]) Blood 2+ Blood AALIYAH ([facility]) Color dark yellow Color AALIYAH ([facility]) Appearance clear Appearance AALIYAH ([facility]) Ketone - Ketone AALIYAH ([facility]) Bilirubin 1+ Bilirubin AALIYAH ([facility]) Glucose - Glucose AALIYAH ([facility]) ID Date Data Source [id number] 05/03/2020 11:00:00 AM EDT AALIYAH ([facility]) Name Value Range Interpretation Code Description Data Radha rce(s) Supporting Document(s) ID Date Data Source [id number] 05/03/2020 11:00:00 AM EDT AALIYAH ([facility]) Name Value Range Interpretation Code Description Data Radha rce(s) Supporting Document(s) ID Date Data Source [id number] 04/26/2020 09:28:00 AM EDT [facility] Name Value Range Interpretation Code Description Data Radha rce(s) Supporting Document(s) HCT 36.0 % 36.0-47.0 N [facility] HGB 10.6 g/dL 12.0-15.5 L [facility] MCH 29.4 G/DL pg 32.0-36.5 L [facility] MCHC 23.7 PG % 27.0-33.0 L [facility] PLATELETS 379 10 10*3/mm3 150-450 N [facility] RBC 4.47 10 10*6/mm3 4.00-5.40 N [facility] RDW 20.7 % 11.5-14.5 H [facility] WBC TOTAL 6.3 4.0-10.0 N [facility] ID Date Data Source [id number] 04/26/2020 09:28:00 AM EDT [facility] Name Value Range Interpretation Code Description Data Radha rce(s) Supporting Document(s) T3, TOTAL 98.8 ng/dL 60.0-181.0 N [facility] T4, FREE 0.77 ng/dL 0.76-1.46 N [facility] TSH 2.970 microintl units/mL 0.358-3.740 N [facility] ID Date Data Source [id number] 04/10/2020 10:28:00 AM EDT MEDENT ([facility]) Name Value Range Interpretation Code Description Data Radha rce(s) Supporting Document(s) Bacteria identified in Urine by Culture Laboratory test result MEDENT ([facility]) <content>FULL REPORT IN LAB NOTES (eCW [...] FOR ESBL</content>
<content></content> ID Date Data Source [id number] 02/23/2020 10:02:38 AM EDT [facility] Measurements & CalculationsHeight: 65 inches (5 [...] during this visit, including review of any lsny-wei-adcwoga medications, herbal therapies, and/or supplements.Allergy ReviewAllergy List [...] GoodAssessment & Plan Problems:Added: Iron deficiency (ICD-275.09) (VKR45-M32.1) Assessment: Instructions: Ferrous gluconate, start once daily. Increase to twice daily if tolerated. Call for new Rx. Colace as needed for constipation.Gastro-esophageal reflux disease without esophagitis (ICD-530.81) (FEG91-D34.9) Assessment: Instructions: Omeprazole daily x 8 weeks. Low a marvin diet, frequent small meals. 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 Ultrasound ordered to look for nodules. Consider endocrinology referral if labs become abnormal or nodule is present.Chronic thyroiditis (ICD- 245.8) (DCZ65-I91.5) Assessment: Instructions: As above.Chronic low back pain (ICD-724.2) (PIE79-L81.5) Assessment: Instructions: Increase gabapentin to as needed daily dose as well, for breakthrough back and leg pain. Tolerating well.Restless legs (ICD-333.94) (NHW16-U90.81) Assessment: Instructions: As above.Anemia (ICD-285.9) (RTN71-P84.9) Assessment: Inst ructions: As above.Mild persistent asthma, uncomplicated (WAQ05-Q09.30) Assessment: Instructions: Stable.Removed:Other specified nontoxic goiter (RRN76-E05.8)Patient Instructions/Care Plan: Iron deficiency: Ferrous gluconate, start [...] ORAL GABAPENTIN 400 MG ORAL CAPSULE Qty: [id number] Refills: 60[Capsule] To: GABAPENTIN 400 MG ORAL CAPSULE-1 tab po BID prn Qty: 60[Capsule] Refills: 5Allergies:No Known Allergies (updated 02/23/2020) Orders:Ultrasound-Thyroid [CPT-32888] Adult - Ofc Vst, EST, Level III [CPT-07215] Follow-Up Return to clinic: in 2 months for follow upAdditional Follow-Up: anemiaClinical Visit Summary CompletedMedications:GABAPENTIN 400 MG ORAL CAPSULE (GABAPENTIN) 1 tab po BID prn #60[Capsule] x 5 Route:ORAL Entered and Authorized by: Anthony SERRANO Method used: Electronically to [facility] (retail) [address] [place] [address] Note to Pharmacy: Route: ORAL; Indications: CHRONIC LOW BACK PAIN;RESTLESS LEGS RxID: [id number] 100 MG ORAL CAPSULE (DOCUSATE SODIUM) Take 1 capsule po TID prn constipation #90[Capsule] x 1 Route:ORAL Entered and Authorized by: Anthony SERRANO Method used: Electronically to [facility] (retail) [address] [place] [address] Note to Pharmacy: Route: ORAL; Indications: IRON DEFICIENCY RxID: [id number] GLUCONATE 324 (37.5 FE) MG ORAL TABLET (FERROUS GLUCONATE) Take 1 tablet po daily #30[Tablet] x 1 Route:ORAL Entered and Authorized by: Anthony SERRANO Method used: Electronically to [facility] (retail) [address] [place] [address] Note to Pharmacy: Route: ORAL; Indications: IRON DEFICIENCY RxID: [id number] 20 MG ORAL TABLET DELAYED RELEASE DISINTEGRATING (OMEPRAZOLE) Take 1 tablet po QAM on an empty stomach with water #30[Tablet] x 1 Route:ORAL Entered and Authorized by: Anthony SERRANO Method used: Electronically to [facility] (retail) [address] [place] [address] Fax: Note to Pharmacy: Route: ORAL; Indications: GASTRO-ESOPHAGEAL REFLUX DISEASE WITHOUT ESOPHAGITIS RxID: [id number] signed by Anthony SERRANO on 03/13/2020 at 10:09 AM Name Value Range Interpretation Code Description Data Radha rce(s) Supporting Document(s) ID Date Data Source [id number] 01/27/2020 10:37:00 PM EDT [facility] Name Value Range Interpretation Code Description Data Radha rce(s) Supporting Document(s) CRP < 0.30 MG/DL mg/dL 0.00-0.[address] [facility] ID Date Data Source [id number] 01/27/2020 10:37:00 PM EDT [facility] Name Value Range Interpretation Code Description Data Radha rce(s) Supporting Document(s) ESR 9 mm/hr 0-20 N [facility] HCT 31.7 % 36.0-47.0 L [facility] HGB 9.1 g/dL 12.0-15.5 L [facility] MCH 28.7 G/DL pg 32.0-36.5 L [facility] MCHC 20.8 PG % 27.0-33.0 L [facility] PLATELETS 432 10 10*3/mm3 150-450 N [facility] RBC 4.38 10 10*6/mm3 4.00-5.40 N [facility] RDW 15.6 % 11.5-14.5 H [facility] WBC TOTAL 9.8 4.0-10.0 N [facility] ID Date Data Source [id number] 01/19/2020 09:19:00 AM EDT [facility] Name Value Range Interpretation Code Description Data Radha rce(s) Supporting Document(s) HCT 33.8 % 36.0-47.0 L [facility] HGB 9.4 g/dL 12.0-15.5 L [facility] [facility] MCH 27.8 G/DL pg 32.0-36.5 L [facility] MCHC 20.7 PG % 27.0-33.0 L [facility] PLATELETS 368 10 10*3/mm3 150-450 N [facility] RBC 4.54 10 10*6/mm3 4.00-5.40 N [facility] RDW 15.9 % 11.5-14.5 H [facility] WBC TOTAL 6.1 4.0-10.0 N [facility] ID Date Data Source [id number] 01/19/2020 09:19:00 AM EDT [facility] Name Value Range Interpretation Code Description Data Radha rce(s) Supporting Document(s) T3, TOTAL 163.7 ng/dL 60.0-181.0 N [facility] VIT D25 TOT 28.2 ng/mL 30.0-100.[address] [facility] BG FASTING 86 mg/dL 70-100 N [facility] T4, FREE 1.41 ng/dL 0.76-1.46 N [facility] TSH 0.005 microintl units/mL 0.358-3.740 L [facility] ID Date Data Source [id number] 01/18/2020 10:01:05 AM EDT [facility] Measurements & CalculationsHeight: 65 inches (5 [...] or Preferred Language: EnglishFamily and Home Address: [address] [place] [address] What is your housing situation today? I have housing Are you worried about losing your housing? NoMoney and Resources In the past year, have you or any family members you live with been unable to get any of the following when it was really needed? Denies Insecurity: food, utilities, clothing, child development consultant, phone, legal services, otherWithin the past year [...] to work. Pt has been seen at [facility] multiple times for sick visits, bronchitis and [...] during this visit, including review of any jeer-kvw-xgetafu medications, herbal therapies, and/or supplements.Allergy ReviewAllergy List [...] general adult medical examination without abnormal findings (AOH70-B72.00) Assessment: Instructions: Recommend annual medical appointments. Recommend routine dental and vision care. Recommend influenza vaccines annually and tetanus boosters every 10 years.Overweight (ICD-278.02) (ENZ98-G87.3) Assessment: Pt taking labs to outside facility. Instructions: Fasting labs have been ordered for you today. When labs are drawn, please ensure that you have had nothing to eat or drink for 8-10 hours prior to the blood drawn. Water or black coffee is OK to have before the blood draw.Allergic rhinitis, unspecified (IVD16-W17.9) Assessment: Instructions: Start Cetirizine daily. If symptoms persist, will consider adding Singulair at next appointment.Mild persistent asthma, uncomplicated (GDB99-V49.30) Assessment: Instructions: Rescue albuterol inhaler refilled. Recommend daily controller inhaler to improve daily symptoms. Do not believe that going without a mask is a safe option at work, especially due to your asthma.Changed:From: Dx of Paresthesia (ICD-782.0) (OOB59-D52.2) To: Restless legs (ICD-333.94) (WHE33-H30.81)From: Dx of BMI 24.0-24.9 (ICD-V85.1) (PJJ01-G31.24) To: Body mass index [BMI] 26.0-26.9, adult (ICD-V85.22) (ULI11-A00.26)Assessed:Body mass index [BMI] 26.0-26.9, adult (ICD-V85.22) (NBF03-B09.26) Assessment: Instructions: Recommend healthy lifestyle. Encourage portion control, healthy food choices, and routine physical activity. Recommendation is for 150 minutes throughout the week of cardiovascular exercise.Nontoxic diffuse goiter (ICD10- E04.0) Assessment: Instructions: Update thyroid labs.Anemia (ICD-285.9) (IAC08-H52.9) Assessment: Instructions: Update labs.Restless legs (ICD-333. 94) (SOX08-G51.81) Assessment: Instructions: Resume prior Gabapentin at bedtime. Caution regarding grogginess.Removed:Menorrhagia (ICD-626.2) (ICD10- N92.0), Endocrine/metabolic screening (ALW99-L19.29), Hyperlipidemia screening (MXC14-G48.220), Encounter for general adult medical examination WITH abnormal findings (over 18) (ICD-V70.0) (XSA42-J07.01)Patient Instructions/Care Plan: Encounter for general adult medical [...] Known Allergies (updated 01/18/2020) Orders:COMP METABOLIC PANEL [CPT-62452] CBC W/DIFF [CPT-31787] LIPID PANEL [CPT-47048] TSH [CPT-76061] T-4 free [CPT-50547] Vitamin D 250H Unspecified [CPT-76218] T3 Total [CPT-13006] Thyroid Peroxidase Antibody [CPT_86376] Thyroglobulin antibody [CPT- 93587] Preventive, New, (18-39) [CPT-00700] Follow-Up Return to clinic: in 6 weeks for follow upAdditional Follow-Up: asthma recheckClinical Visit Summary CompletedMedications:CETIRIZINE HCL 10 MG ORAL TABLET (CETIRIZINE HCL) Take 1 tablet po daily #90[Tablet] x 3 Route:ORAL Entered and Authorized by: Anthony SERRANO Method used: Electronically to [facility] (retail) [address] [place] [address] Note to Pharmacy: Route: ORAL; In dications: ALLERGIC RHINITIS, UNSPECIFIED;MILD PERSISTENT ASTHMA, UNCOMPLICATED RxID: [id number] HFA 44 MCG/ACT INHALATION INHALER (FLUTICASONE PROPIONATE HFA) Two oral inhalation puffs twice daily, rinse mouth after use #1[Inhaler] x 2 Route:INHALATION Entered and Authorized by: Anthony SERRANO Method used: Electronically to [facility] (retail) [address] [place] [address] Note to Pharmacy: Route: INHALATION; Indications: ALLERGIC RHINITIS, UNSPECIFIED;MILD PERSISTENT ASTHMA, UNCOMPLICATED RxID: [id number] SULFATE HFA 108 (90 BASE) MCG/ACT INHALATION AEROSOL SOLUTION (ALBUTEROL SULFATE) Take 2 puffs oral inhalation q 4 hrs prn wheezing or shortness of breath #1[Inhaler] x 5 Route:INHALATION Entered and Authorized by: Anthony SERRANO Method used: Electronically to [facility] (retail) [address] [place] [address] Note to Pharmacy: Route: INHALATION; Indications: ALLERGIC RHINITIS, UNSPECIFIED;MILD PERSISTENT ASTHMA, UNCOMPLICATED RxID: [id number] signed by Anthony SERRANO on 02/04/2020 at 1:20 PM Name Value Range Interpretation Code Description Data Radha rce(s) Supporting Document(s) ID Date Data Source [id number] 12/29/2019 10:25:00 AM EDT [facility] ([facility]) Name Value Range Interpretation Code Description Data Radha rce(s) Supporting Document(s) Coronavirus 2019 Nasopharygeal Laboratory test result [facility] ([facility]) This test was developed and its performa [...] detected) result in this assay. Performed at: [facility] [address] [id number] Vice President Business & Corporate Development: Rayne Lieberman MD, Phone: [phone] Not Detected ID Date Data Source [id number] 12/29/2019 10:25:00 AM EDT [facility] Name Value Range Interpretation Code Description Data Radha rce(s) Supporting Document(s) SARS CORONAVIRUS 2 RNA [facility] This lab was ordered by [facility] and reported by [facility]. ID Date Data Source [id number] 12/29/2019 10:21:00 AM EDT [facility] ([facility]) Name Value Range Interpretation Code Description Data Radha rce(s) Supporting Document(s) Bacteria identified in Throat by Culture Laboratory test result [facility] ([facility]) Rx Cefdinir ID Date Data Source CHGCTV - CHLAMYDIA, GC & TRICH AMP (Microbiology) 11/10/2019 12:00:00 AM EDT [facility] ([facility]) Name Value Range Interpretation Code Description Data Radha rce(s) Supporting Document(s) NOT DETECTED NEGATIVE Trichomonas vaginalis ( AMP) [facility] ([facility]) ID Date Data Source [id number] 10/12/2019 09:28:00 AM EDT [facility] [address] [place] [address] PHONE: [phone] FAX: [phone] Name .................. : YANCY SAMAYOA Chery Acct Number.................. : [id number] ROOM. ................. : TR-07 Number ................... : [id number] Stay type ............. : E/R Discharge Date......... ... : 10/10/19 Admit Date ......... : 10/10/19 Admit Phys .................... : GRIS DANE Date of ....... : 1985 Family Phys ................... : [employer] Phone .................. : [phone] Age ................................ : 34 Film# .................. .:[id number] Sex ................................. : F Unsigned transcriptions are preliminary reports and do not represent a medical or legal document CHEST PORTABLE [id number] COMPLETE:10/10/19 14:46 [facility] [address] Reason(s): w orsening SOB, tachypnea PORTABLE CHEST [...] rce(s) Supporting Document(s) ID Date Data Source [id number] 10/12/2019 08:42:00 AM EDT [facility] [address] [place] [address] PHONE: [phone] FAX: [phone] Name ..............: YANCY SAMAYOA Chery Acct Number ...........................: [id number] ROOM. ............: TR-07 MR Number ............................: [id number] Stay type.........: E/R Discharge Date...............:10/10/19 Admit Date .....: 10/10/19 Admit Phys .............................: GRIS DANE Date of ..: 1985 Family Phys ...........................: B[facility] [place] Phone..............: [phone] Age.................................:34 Film# ...............:[id number] Sex.................................:F Unsigned transcriptions are preliminary reports and [place] [address] COMPLETE:10/11/19 01:02 T [id number] Please See Scanned Results. Name Value Range Interpretation Code Description Data Radha rce(s) Supporting Document(s) ID Date Data Source [id number] 10/10/2019 01:38:00 PM EDT [facility] 1 OrderSheet [facility] Emergency Department [address] [place] [address] Phone #: ext- [phone] 10/10/2019 13:32 Patient: YAO HAINES Sex: F [...] 10/10/2019 14:57 Sorbero,q10m X2 (Raz SERRANO; Lowell R.N.15:04 10/10/2019)CORONAVIRUS STAT 15:00 10/10/2019 15:36 Russell,COVID- 19 Isai SERRANO; Lowell R.N. 2 OrderSheet [facility] Emergency Department [address] [place] [address] Phone #: ext- [phone] 10/10/2019 13:32 Patient: YAO HAINES Sex: F [...] titrate Isai SERRANO; Kathie GODWIN 3 OrderSheet [facility] Emergency Department [address] [place] [address] Phone #: ext- [phone] 10/10/2019 13:32 Patient: YAO HAINES Sex: F [...] rce(s) Supporting Document(s) ID Date Data Source [id number] 10/10/2019 01:38:00 PM EDT [facility] 1 Medication Reconciliation Report [facility] Emergency Department [address] [place] [address] Phone #: ext- [phone] 10/10/2019 13:32 Patient: YAO HAINES Sex: F : 1985 Age: 34yWeight: 65.7 kgHeight/Length: 63 in.BMI: 25.7ALLERGIES: No Known Drug AllergyThe patient's Home Medications are listed below:THE FOLLOWING MEDICATIONS NEED TO BE RECONCILED: Albuterol Sulfate HFA Inhalation [facility] PredniSONEThe source(s) of the original Home Medication [...] - first dose given in ED.Pharmacy - [facility] - [address] [place] [address]. FaxNumber: [phone]. 2 Medication Reconciliation Report [facility] Emergency Department [address] [place] [address] Phone #: ext- [phone] 10/10/2019 13:32 Patient: YAO HAINES Sex: F : 1985 Age: 34ycefdinir 300 mg capsule Take 1 capsule twice a day for 10 days -- for pneumonia. Dispense 20 capsule.Refills: 0. Substitution permitted.Pharmacy - [facility] - [address] [place] [address]. . -- ZACH Leon Name Value Range Interpretation Code Description Data Radha rce(s) Supporting Document(s) ID Date Data Source [id number] 10/10/2019 01:38:00 PM EDT [facility] 1 Medication Administration Record [facility] Emergency Department [address] [place] [address] Phone #: ext- [phone] 10/10/2019 13:32 Patient: [...] Chewta ROCEPHIN (1GM/50ML) [IVPB] Rocephin (1gm/50mL) IVPB 634701:12 10/10/2019 (CEFTRIAXONE SODIUM) mg with Dextrose 50 [...] rce(s) Supporting Document(s) ID Date Data Source [id number] 10/10/2019 01:38:00 PM EDT [facility] 1 General Instructions [facility] Emergency Department [address] [place] [address] Phone #: ext- [phone] 10/10/2019 13:32 Patient: YAO HAINES Sex: F : 1985 Age: 34y Bacterial pneumonia. No hypoxemia, respiratory failure or sepsis.INSTRUCTIONS Take Tylenol (Acetaminophen) for temperature greater than 100.4 degrees. Take according to label instructions. Don't use Motrin (Ibuprofen) for fever. No strenuous activity until better. Rest at home for two days. Do not work (until contacted by [facility] with COVID 19 results). Avoid tobacco [...] Pharmacy - first dose given in ED. [facility] [address] [place] [address]. . cefdinir 300 mg capsule Take 1 capsule twice a day for 10 days -- for pneumonia. Dispense 20 capsule. Refills: 0. Substitution permitted. [facility] [address] [facility] ; [place] [address]. . Follow-up: Follow up with your healthcare provider. Reason for referral: [id number] in quarantine at home until contacted by [facility] with COVID 19 results.. Summary of care provided to patient via paper. Understanding of the discharge instructions verbalized by patient. Understanding of the discharge instructions verbalized by patient. Expected course of illness, discharge instructions, activity level, prescriptions x2, follow-up appointment and risks and benefits of treatment reviewed with patient and understanding verbalized. Agrees to plan of care. ADDITIONAL INFORMATION 2 General Instructions [facility] Emergency Department [address] [place] [address] Phone #: ext- [phone] 10/10/2019 13:32 Patient: [...] for yourself at home: 3 General Instructions [facility] Emergency Department [address] [place] [address] Phone #: ext- [phone] 10/10/2019 13:32 Patient: [...] better with fever medicine 4 General Instructions [facility] Emergency Department [address] [place] [address] Phone #: [phone] ext- [phone] 10/10/2019 13:32 [id number] Sex[facility] F : 1985 Age: 34y Weakness, dizziness, or fainting that gets worse Thirst or dry mouth that gets worse Sinus pain, headache, or a stiff neck Chest pain not caused by coughing 8801-[address] [place], [place] [address]. All rights reserved. This information is not [...] between the 2 medicines 5 General Instructions [facility] Emergency Department [address] [place] [address] Phone #: ext- [phone] 10/10/2019 13:32 Patient: YAO HAINES Sex: F [...] ask your healthcare provider. 6 General Instructions [facility] Emergency Department [address] [place], [place] [address] Phone #: ext- [phone] 10/10/2019 13:32 Patient: YAO HAINES Sex: F : 1985 Age: 34yCall 911Someone should call 911 if you: Are having trouble breathing or shortness of breath Are unresponsiveImportant reminderCall your healthcare provider if you get a fever after visiting a place where infectious diseases arecommon. Many people brain picker a cold or other virus while [...] or piercing while you were thereCheck the [facility] to get more information about specific infectious diseases in the areas you havetraveled. [phone] [employer]. [address] [place] [address]. All rights reserved. This information is not [...] home, you will be monitored [facility]. You should follow the prevention steps below until a healthcare provider or 7 General Instructions [facility] Emergency Department [address] [place], [place] [address] Phone #: ext- [phone] 10/10/2019 13:32 Patient: YAO HAINES Sex: F : 1985 Age: 34ylocal or [facility] department says you can return to your normal activities. going to the bathroom; and before eating or prepa ring food. If soap Stay home except to get medical care and water are not readily available, use an alcohol-based hand People who are mildly ill with COVID-19 a re able to isolate at hair salon manager with at least 60% alcohol, covering all [...] with pets and wear a facemask.See https:// www.cdc.gov/coronavirus/2019-ncov/faq.html#8965-hNtZ-dtr-animals for more information. Call ahead before visiting [...] clean your hands with an alcohol-based hand hair salon manager that contains at least 60% alcohol. Clean your hands often Wash your hands often with soap and water for at least 20seconds, especially after blowing your nose, coughing, or sneezing; 8 General Instructions [facility] Emergency Department [address] [place] [address] Phone #: ext- [phone] 10/10/2019 13:32 Patient: YAO HAINES Sex: F [...] isolation precautions should be made on a seby-tn-pxvs basis, inLabels contain instructions for safe and [...] exposed. Ask your healthcare provider to call [facility] or state health department. Persons who are placed underactive monitoring or facilitated self-monitoring should followinstructions provided by their local health department or Content source: National Center for Immunization andoccupational health professionals, as appropriate. When Respiratory Diseases (NCIRD), Division of Viral Diseasesworking with your local health department check their available https://www.zhiwoystem.com/index.php 9 General Instructions [facility] Emergency Department [address] [place] [address] Phone #: ext- [phone] 10/10/2019 13:32 Patient: [...] with soap and water or alcohol-based hand hair salon manager. Next,o Household members should stay in another room or be remove and dispose of facemask, and immediately clean your hands again with soap and water or alcohol-based from the patient as much as possible. Household hand hair salon manager. members should use a separate bedroom and [...] 20 seconds or use an alcohol-based hand hair salon manager that conta ins 60 to 95% alcohol, covering all surfaces of your hands and rubbing them together until they feel dry. Soap and water should be used preferentially if hands are visibly dirty. 10 General Instructions [facility] Emergency Department [address] [place] [address] Phone #: ext- [phone] 10/10/2019 13:32 Patient: YAO HAINES Sex: F : 1985 Age: 34y Clean all "high-touch" surfaces, such as counters, soap and water or an alcohol-based hand hair salon manager} tabletops, doorknobs, bathroom fixtures, toilets, immediately after [...] and water or an Footnotes alcohol-based hand hair salon manager} immediately after 1 removing your gloves. Home [...] facemasks, and other case - or - www.DoubleDutch.Huayi/index.php contaminated items in a lined container before [...] days. Do not work (until contacted by [facility] with COVID 19 results).(Electronically signed by ZACH Leon 10/10/2019 18:26) 11 General Instructions [facility] Emergency Department [address] [place] [address] Phone #: ext- [phone] 10/10/2019 13:32 Patient: YAO HAINES Sex: F : 1985 Age: 34y Name Value Range Interpretation Code Description Data Radha rce(s) Supporting Document(s) ID Date Data Source [id number] 10/10/2019 01:38:00 PM EDT [facility] 1 Clinical Report - Nurses [facility] Emergency Department [address] [place] [address] Phone #: ext- [phone] 10/10/2019 13:32 Patient: [...] Inhalation. --13:34 10/10/19 Gregg Henao R.N. Pharmacy [facility]. --13:47 10/10/19 Keenan Vázquez RN.AllergiesNo Known Drug [...] the [place] 2 Clinical Report - Nurses [facility] Emergency Department [address] [place] [address] Phone #: ext- [phone] 10/10/2019 13:32 Patient: [...] treatment room. --13:36 10/10/19 Gregg Henao R.N.PHYSICAL IITZEJJRAD92:48 10/10/19. Ambulatory to room.GENERAL / NEURO / [...] R.N. Cardiac rhythm: normal sinus rhythm; (1340). hall monitor, pulse oximeter and NIBP monitor placed on patient; personnel monitor- Lead II; monitor alarms on; monitor strip added to paper chart. Patient gowned. Head of bed elevated 75 degrees. Two patient identifiers checked. Call light placed in reach. Bed placed in lowest position. Brakes of bed on. Patient ready for evaluation- PA notified. --13:48 10/10/19 Keenan Vázquez RN 3 Clinical Report - Nurses [facility] Emergency Department [address] [place] [address] Phone #: ext- [phone] 10/10/2019 13:32 Patient: [...] of the patient and sent to lab (2467 flu and flu 4). Checked patient name and birthdate:patient confirmed. Throat swab obtained by nurse for rapid strep; labeled in the presence of the patient andsent to lab (3280). --14:30 10/10/19 Keenan Vázquez RNRespiratory isolation precautions [...] placed in 4 Clinical Report - Nurses [facility] Emergency Department [address] [place] [address] Phone #: ext- [phone] 10/10/2019 13:32 Patient: [...] Patient verbalized understanding. Written instructions provided in Prydeinig. The patient was discharged by the physician assistant general manager. She was discharged home and accompanied by [...] Wells R.N. 5 Clinical Report - Nurses [facility] Emergency Department [address] [place] [address] Phone #: ext- [phone] 10/10/2019 13:32 Patient: YAO HAINES Sex: F : 1985 Age: 34yLocked/Released at 10/10/2019 18:29 by Lowell Wells R.N. Name Value Range Interpretation Code Description Data Radha rce(s) Supporting Document(s) ID Date Data Source [id number] 10/10/2019 01:38:00 PM EDT [facility] 1 Clinical Report - Physicians/Mid Levels [facility] Emergency Department [address] [place] [address] Phone #: ext- [phone] 10/10/2019 13:32 Patient: YAO HAINES Sex: F : 1985 Age: 34y Time Seen: 13:35 10/10/2019. Arrived- By private vehicle. Historian- patient. Disposition decision: 16:20 10/10/2019.HISTORY OF PRESENT ILLNESS Chief Complaint: DYSPNEA. This started about 2 weeks ago; Worsening cough, SOB and sharp L sided chest pain x 2 weeks, treated at [facility] x 2 weeks ago with PO amoxicillin [...] Tubal Ligation. 2 Clinical Report - Physicians/Mid [facility] Emergency Department [address] [place] [address] Phone #: ext- [phone] 10/10/2019 13:32 Patient: YAO HAINES Sex: F : 1985 Age: 34y Tympanostomy Tubes. Medications: Pharmacy [facility]. Albuterol Sulfate HFA Inhalation. Amox. PredniSONE. Allergies: [...] process. 3 Clinical Report - Physicians/Mid Levels [facility] Emergency Department [address] [place] [address] Phone #: ext- [phone] 10/10/2019 13:32 Patient: YAO HAINES Sex: F [...] 3.2) 4 Clinical Report - Physicians/Mid Levels [facility] Emergency Department [address] [place] [address] Phone #: ext- [phone] 10/10/2019 13:32 Patient: [...] Male GFR Interprentation 20-49 yrs >60 mL/min Mluxfv65-59 yrs >56 mL/min Normal 60-69 yrs >49 mL/min Normal 70-79yrs>42 mL/min Normal 80 and above >35 mL/min Normal Female GFRInterpretation 20-39 yrs >60 mL/min Normal 40-49 yrs >58 mL/minNormal 50-59 yrs >51 mL/min Normal 60-69 yrs >45 mL/min Dtsago56-51 yrs >39 mL/min Normal 80 and above >32 mL/min NormalD- Dimer: (LORI: 10/10/2019 14:12) ( [facility] 10/10/2019 14:40) F inal results Test Result Flag Units (Reference) D-DIMER QUANT 0.45 ug/mL (0.27 - 0.50)Influenza Nasal A B: (LORI: 10/10/2019 14:00) ( [facility] 10/10/2019 14:52) Final results Test Result Flag Units (Reference) INFLUENZA A NEGATIVE (NORMAL: NEGAT INFLUENZA B NEGATIVE (NORMAL: NEGAT INFLUENZA A REENTER NEGATIVE (NORMAL: NEGAT INFLUENZA B REENTER NEGATIVE (NORMAL: NEGAT PROCEDURAL CONTROL VALID KIT LOT # _[id number] 10/10/19.1452.DW . KIT EXP DATE _47-02-58 62/31/20.1452.DW .The Influenza A utilizing an isothermal nucleic acid amplification technology for thequalitativedetection of influenza A and B viral RNA.Negative results do not preclude influenza virus infection and shouldnot beused as the sole basis for diagnosis, treatment or other patient managementdecisions.Lactic Acid: (LORI: 10/10/2019 14:12) ( [facility] 10/10/2019 14:25) Final results Test Result Flag Units (Reference) LACTIC ACID 2.0 MMOL/L (0.2 - 2.2)Rapid Strep Screen: (LORI: 10/10/2019 14:00) ( [facility] 10/10/2019 14:44) Final results Test Result Flag Units (Reference) RAPID STREP NEGATIVE (NORMAL: NEGAT RAPID STREP REENTER NEGATIVE (NORMAL: NEGAT { PROCEDURAL CONTROL VALID ){ KIT LOT #[id number] ){ KIT EXP DATE 10-04-20 )TheStrep A [...] basis for treatment.Troponin-T: (LORI: 10/10/2019 14:12) ( [facility] 10/10/2019 14:45) Final results Test Result Flag Units (Reference) TROPONIN T 0.01 NG/ML (0.00 - 0.10) TROPONIN T0.1 ng/ml Recommended as the clinical threshold value forTroponin T.Urinalysis: (LORI: 10/10/2019 14:14) ( [facility] 09/11 14:34) Final results Test Result Flag Units (Reference) URINALYSIS URINALYSIS SOURCE R 5 Clinical Report - Physicians/Mid Levels [facility] Emergency Department [address] [place] [address] Phone #: ext- [phone] 10/10/2019 13:32 [id number] : 1985 Age: 34y COLOR [...] Venous Blood Gas: (LORI: 10/10/2019 14:12) ( [facility] 10/10/2019 14:25) Final results Test Result [...] sepsis. 6 Clinical Report - Physicians/Mid Levels [facility] Emergency Department [address] [place] [address] Phone #: ext- [phone] 10/10/2019 13:32 Patient: YAO HAINES Sex: F : 1985 Age: 34yINSTRUCTIONS Take Tylenol (Acetaminophen) for temperature greater than 100.4 degrees. Take according to label instructions. Don't use Motrin (Ibuprofen) for fever. No strenuous activity until better. Rest at home for two days. Do not work (until contacted by [facility] with COVID 19 results). Avoid tobacco [...] Pharmacy - first dose given in ED. [facility] [address] [place] [id number]. . cefdinir 300 mg capsule Take 1 capsule twice a day for 10 days -- for pneumonia. Dispense 20 capsule. Refills: 0. Substitution permitted. [facility] [address] [place] [id number]. . Follow-up: Follow up with your healthcare provider. Reason for referral: [id number] in quarantine at home until contacted by [facility] with COVID 19 results.. Summary of [...] rce(s) Supporting Document(s) ID Date Data Source [id number] 10/10/2019 03:50:00 PM EDT [facility] Name Value Range Interpretation Code Description Data Radha rce(s) Supporting Document(s) SARS CORONAVIRUS 2 RNA [facility] This lab was ordered by [facility] sweetie and reported by [facility]. ID Date Data Source [id number] 10/14/2019 09:17:00 AM EDT [facility] Name Value Range Interpretation Code Description Data Radha rce(s) Supporting Document(s) SARS-CoV-2, STEPHANIE Not Detected Not Detected [facility] Testing was performed using the jessa(R) SARS-CoV-2 test.This test was developed and its performance characteristics determinedby [facility]. This test has not been FDA cleared [...] or revoked sooner. ID Date Data Source [id number] 10/15/2019 06:09:00 PM EDT [facility] Name Value Range Interpretation Code Description Data Radha rce(s) Supporting Document(s) Bacteria identified in Blood by Culture [facility] NO GROWTH AFTER 5 DAYS ID Date Data Source [id number] 10/16/2019 07:22:00 AM EDT [facility] Name Value Range Interpretation Code Description Data Radha rce(s) Supporting Document(s) [facility]_ [place] [address] CLIA# [id number] SEE SCANNED REPORT{ PRELIM ID Date Data Source [id number] 10/16/2019 07:22:00 AM EDT [facility] Name Value Range Interpretation Code Description Data Radha rce(s) Supporting Document(s) CULTURE BLOOD [facility] Ho spital _CULTURE BLOOD_ TEST [place] [address] CLIA# [id number] SEE SCANNED REPORT{ PRELIM ID Date Data Source [id number] 10/10/2019 02:34:00 PM EDT [facility] Name Value Range Interpretation Code Description Data Radha rce(s) Supporting Document(s) URINALYSIS [facility] el [facility] COL[facility] yellow NORMAL: Yellow [facility] ospital CLARITY clear NORMAL: Clear [facility] spital Specific gravity of Urine by Test strip 1.015 1.001 - 1.030 [facility] pH 7 5 - 9 [facility] Glucose [Mass/volume] in Urine by Test strip NORM NORMAL: Negat [facility] Bilirubin.total [Presence] in Urine by Test strip NEG NORMAL: Negative [facility] Ketones [Presence] in Urine by Test strip NEG NORMAL: Negative [facility] Protein [Mass/volume] in Urine by Test strip NEG NORMAL: [facility] Nitrite [Presence] in Urine by Test strip NEG NORMAL: Negative [facility] BLOOD NEG NORMAL: Negative [facility] Leukocyte esterase [Presence] in Urine by Test strip NEG LLOYD L: Negative [facility] Urobilinogen [Mass/volume] in Urine by Test strip NOR less anjana n 1.0 mg/dL [facility] MICROSCOPIC Not Indicate [facility] H ospital ID Date Data Source [id number] 10/10/2019 02:53:00 PM EDT [facility] Name Value Range Interpretation Code Description Data Radha rce(s) Supporting Document(s) COMPREHENSIVE METABOLIC PANEL [facility] COMPREHENSIVE METABOLIC PANEL Sodium [Moles/volume] in Serum or Plasma 137 mEq/L 134 - 153 [facility] Potassium [Moles/volume] in Serum or Plasma 3.9 mEq/L 3.6 - 5.0 [facility] Chloride [Moles/volume] in Serum or Plasma 99 mEq/L 98 - 107 [facility] Carbon dioxide, total [Moles/volume] in Serum or Plasma 25 MEQ/L 22 - 30 [facility] Glucose [Mass/volume] in Serum or Plasma 87 MG/DL 65 - 110 [facility] BUN 10 MG/DL 7 - 21 [facility] al Creatinine [Mass/volume] in Serum or Plasma 0.6 MG/DL 0.7 - 1.5 L [facility] BUN/CREAT 17 8 - 27 [facility] al Protein [Mass/volume] in Serum or Plasma 7.9 G/DL 6.3 - 8.2 [facility] Albumin [Mass/volume] in Serum or Plasma 4.7 G/DL 3.9 - 5.0 [facility] Globulin [Mass/volume] in Serum by calculation 3.2 GM/DL 2.4 - 3.2 [facility] A/G RATIO 1.5 0.8 - 2.0 [facility] Calcium [Mass/volume] in Serum or Plasma 9.8 MG/DL 8.4 - 10.2 [facility] Bilirubin.total [Mass/volume] in Serum or Plasma <0.7 MG/DL 0.2 - 1.3 [facility] Alkaline phosphatase [Enzymatic activity/volume] in Serum or Plasma 68 U/L 38 - 126 [facility] Aspartate aminotransferase [Enzymatic activity/volume] in Serum or Plasma 13 U/L 5 - 40 [facility] Alanine aminotransferase [Enzymatic activity/volume] in Seru m or Plasma 15 U/L 7 - 56 [facility] Anion gap 3 in Serum or Plasma 13.0 mmol/L 8.0 - 16.0 [facility] AGE 34 yrs [facility] al NON-AA GFR >60 mL/min [facility] AFR AMER GFR >60 mL/min [facility] Ho spital Male GFR In terprentation 20-49 [...] >32 mL/min Normal ID Date Data Source [id number] 10/10/2019 02:47:00 PM EDT [facility] Name Value Range Interpretation Code Description Data Radha rce(s) Supporting Document(s) BNP 11 PG/ML 0 - 125 [facility] Hospit al ID Date Data Source [id number] 10/10/2019 02:45:00 PM EDT [facility] Name Value Range Interpretation Code Description Data Radha rce(s) Supporting Document(s) TROPONIN T 0.01 NG/ML 0.00 - 0.10 [facility] spital TROPONIN T0.1 ng/ml Recommended as the c linical threshold value forTroponin T. ID Date Data Source [id number] 10/10/2019 02:39:00 PM EDT [facility] Name Value Range Interpretation Code Description Data Radha rce(s) Supporting Document(s) CBC W/AUTOMATED DIFF [facility] COMPLETE BLOOD COUNT Leukocytes [#/volume] in Blood by Automated count 22.8 10^3/uL 4.2 - 11.0 H [facility] Erythrocytes [#/volume] in Blood by Automated count 5.11 10^6/uL 4. 20 - 5.40 [facility] Hemoglobin [Mass/volume] in Blood 10.7 g/dL 12.0 - 16.0 L [facility] Hematocrit [Volume Fraction] of Blood by Automated count 36.3 % 3 7.0 - 47.0 L [facility] Erythrocyte mean corpuscular volume [Entitic volume] by Auto mated count 71.0 fL 81.0 - 101 L [facility] Erythrocyte mean corpuscular hemoglobin [Entitic mass] by Automated count 20.9 pg 27.0 - 34.0 L [facility] Erythrocyte mean corpuscular hemoglobin concentration [Mass/volume] by Automated count 29.5 g/dL 31.0 - 36.0 L [facility] Erythrocyte distribution width [Ratio] by Automated count 17.1 % 11.5 - 14.5 H [facility] Platelets [#/volume] in Blood by Automated count 616 10^3/uL 150 - 45 0 H [facility] Platelet mean volume [Entitic volume] in Blood by Automated count 10.5 fL 7.4 - 10.4 H [facility] Neutrophils/100 leukocytes in Blood by Automated count 75.5 % 37. 0 - 80.0 [facility] Lymphocytes/100 leukocytes in Blood by Manual count 14.3 % 25.0 - 40.0 L [facility] Monocytes/100 leukocytes in Blood by Automated count 6.0 % 3.0 - 8.0 [facility] Eosinophils/100 leukocytes in Blood by Automated count 0.6 % 0.0 - 7.0 [facility] Basophils/100 leukocytes in Blood by Automated count 0.5 % 0.0 - 2.5 [facility] %IG 3.1 % 0.0 - 0.0 H [facility] Hospit al %NRBC 0.0 % 0.0 - 0.0 [facility] Neutrophils [#/volume] in Blood by Automated count 17.18 10^3/uL 2. 00 - 6.90 H [facility] Lymphocytes [#/volume] in Blood by Automated count 3.26 10^3/uL 0.60 - 3.40 [facility] Monocytes [#/volume] in Blood by Automated count 1.37 10^3/uL 0.00 - 0.90 H [facility] Eosinophils [#/volume] in Blood by Automated count 0.14 10^3/uL 0.00 - 0.70 [facility] Basophils [#/volume] in Blood by Automated count 0.12 10^3/uL 0.00 - 0.20 [facility] #IG 0.70 10^3/uL 0.00 - 0.10 H [facility] ospital #NRBC 0.00 10^3/uL 0.00 - 0.00 [facility] MANUAL DIFF SEE BELOW [facility] ital Segmented neutrophils/100 leukocytes in Blood by Manual count 75 % 37 - 80 [facility] BAND 1 % 0 - 5 [facility] %LYMPH 14 % 25 - 40 L [facility] %MONO 10 % 3 - 8 H [facility] al RBC MORPH SEE BELOW [facility] al Anisocytosis [Presence] in Blood by Light microscopy 1+ LLOYD L: NONE SEEN A [facility] Microcytes [Presence] in Blood by Light microscopy 2+ NORMAL: NONE SEEN A [facility] Poikilocytosis [Presence] in Blood by Light microscopy 1+ NOR MAL: NONE SEEN A [facility] HYPO 2+ NORMAL: NONE SEEN A [facility] { SICKLE CELL (NORMAL: NONE SEEN ) Platelet adequacy [Presence] in Blood by Light microscopy IN CREASED NORMAL: NORMAL A [facility] COMMENT: ID Date Data Source [id number] 10/10/2019 02:39:00 PM EDT [facility] Name Value Range Interpretation Code Description Data Radha rce(s) Supporting Document(s) Fibrin D-dimer FEU [Mass/volume] in Platelet poor plasma 0.45 ug /mL 0.27 - 0.50 [facility] ID Date Data Source [id number] 10/10/2019 02:25:00 PM EDT [facility] Name Value Range Interpretation Code Description Data Radha rce(s) Supporting Document(s) pH of Serum or Plasma 7.46 7.32 - 7.[address] [facility] pCO2 V 35.1 mm/HG 38.0 - 51.0 L [facility] pO2 V 36.6 mm/HG 30.0 - 55.0 [facility] Bicarbonate [Moles/volume] in Venous blood 24.6 meq/L 22.0 - 29.0 [facility] TCO2 V 25.7 meq/L 22.0 - 29.0 [facility] pital Base excess in Blood by calculation 1.1 -2.0 - 2.0 [facility] O2 SAT V 74.1 % 40.0 - 85.0 [facility] ital ID Date Data Source [id number] 10/10/2019 02:24:00 PM EDT [facility] Name Value Range Interpretation Code Description Data Radha rce(s) Supporting Document(s) Lactate [Moles/volume] in Serum or Plasma 2.0 MMOL/L 0.2 - 2.2 [facility] ID Date Data Source [id number] 10/10/2019 04:11:00 PM EDT [facility] 4408THIS TESTS FOR HUMAN CORONAV IRUS NOT COVID-19FilmArray Respiratory Panel is a Multiplexed NAAT-PCR testNORMAL VALUE FOR ALL 20 PATHOGENS IS "NOT DETECTED".The FilmArray RP panel detects Influenza A H1,H3 [id number] H1 viruses,Influenza B virus, Respiratory syncytialvirus, Human [...] rce(s) Supporting Document(s) ID Date Data Source [id number] 10/10/2019 05:22:00 PM EDT [facility] Name Value Range Interpretation Code Description Data Radha rce(s) Supporting Document(s) FLU PANEL [facility] Hospit al _RESPIRATORY PANEL, FLU4_ [place] [address] CLIA# [id number] SEE SCANNED REPORT ID Date Data Source [id number] 10/10/2019 02:52:00 PM EDT [facility] Name Value Range Interpretation Code Description Data Radha rce(s) Supporting Document(s) Influenza virus A Ag [Presence] in Nasopharynx by Immunoassa y NEGATIVE NORMAL: NEGATIVE [facility] Influenza virus B Ag [Presence] in Nasopharynx by Immunoassa y NEGATIVE NORMAL: NEGATIVE [facility] NEGATIVENEGATIVE PROCEDURAL CO NTROL VALID KIT LOT # _[id number] 10/10/19.1452.DW . KIT EXP DATE _[id number] 10/10/19.1452.DW .The Influenza A & B assay is a rapid molecular in vitro diagnostic testutilizing an isothermal nucleic acid amplification technology for thequalitative detection of influenza A and B viral RNA.Negative results do not preclude influenza virus infection and should not beused as the sole basis for diagnosis, treatment or other patient managementdecisions. ID Date Data Source [id number] 10/10/2019 02:43:00 PM EDT [facility] Name Value Range Interpretation Code Description Data Radha rce(s) Supporting Document(s) RAPID STREP NEGATIVE NORMAL: NEGATIVE [facility] RAPID STREP REENTER NEGATIVE NORMAL: NEGATIVE [facility] { PROCEDURAL CONTROL VALID ){ KIT LOT # [id number] ){ KIT EXP DATE 10-04-20 )The Strep [...] completed Patient is a former smoker MEDENT ([facility]) Smoking 12/11/2019 12:00:00 AM EDT Former Smoker completed Former Smoker [id number] ([facility]) Vital Signs ID Date Data Source UNK Name Value Range Interpretation Code Description Data Source(s) Body weight 2352 [oz_av] 2352 [oz_av] AALIYAH ([facility]) Systolic blood pressure 124 mm[Hg] 124 mm[Hg] A THENA ([facility]) Body mass index (BMI) [Ratio] 24.5 kg/m2 24.5 k g/m2 WACO ([facility]) Body height 65 [in_i] 65 [in_i] WACO ([facility]) Diastolic blood pressure 77 mm[Hg] 77 mm[Hg] WACO ([facility]) Body mass index (BMI) [Ratio] 26.6 kg/m2 26.6 k g/m2 MEDENT ([facility]) Body height 63 [in_i] 63 [in_i] MEDENT ([facility]) 5'3" Body weight 150.00 [lb_av] 150.00 [lb_av] MEDEN T ([facility]) Body temperature 98.2 [degF] 98.2 [degF] [facility] Oxygen saturation in Arterial blood by Pulse oximetry 98 % 98 % [facility]) Respiratory rate 18 /min 18 /min [facility] ( [facility]) Heart rate 66 /min 66 /min MEDENT ([facility], [facility]) Body mass index (BMI) [Ratio] 26.6 kg/m2 26.6 k g/m2 MEDENT ([facility], [facility]) Body height 63 [in_i] 63 [in_i] MEDENT ([facility], [facility]) 5'3" Body weight 150.00 [lb_av] 150.00 [lb_av] MEDEN T ([facility], [facility]) Body temperature 97.8 [degF] 97.8 [degF] MEDENT ([facility], [facility]) Oxygen saturation in Arterial blood by Pulse oximetry 98 % 98 % MEDENT ([facility], [facility]) Respiratory rate 20 /min 20 /min MEDENT ( [facility], [facility]) Heart rate 57 /min 57 /min MEDENT ([facility], [facility]) Diastolic blood pressure 65 mm[Hg] 65 mm[Hg] MEDENT ([facility], [facility]) Systolic blood pressure 125 mm[Hg] 125 mm[Hg] M EDENT ([facility], [facility]) Body weight 2512 [oz_av] 2512 [oz_av] AALIYAH ([facility]) Systolic blood pressure 117 mm[Hg] 117 mm[Hg] A [facility] ([facility]) Body mass index (BMI) [Ratio] 26.1 kg/m2 26.1 k g/m2 AALIYAH ([facility]) Body height 65 [in_i] 65 [in_i] AALIYAH ([facility]) Diastolic blood pressure 85 mm[Hg] 85 mm[Hg] AALIYAH ([facility]) Body weight 2512 [oz_av] 2512 [oz_av] AALIYAH ([facility]) Systolic blood pressure 117 mm[Hg] 117 mm[Hg] A [facility] ([facility]) Body mass index (BMI) [Ratio] 26.1 kg/m2 26.1 k g/m2 AALIYAH ([facility]) Body height 65 [in_i] 65 [in_i] AALIYAH ([facility]) Diastolic blood pressure 85 mm[Hg] 85 mm[Hg] AALIYAH ([facility]) Body weight 2512 [oz_av] 2512 [oz_av] AALIYAH ([facility]) Systolic blood pressure 117 mm[Hg] 117 mm[Hg] A THENA ([facility]) Body mass index (BMI) [Ratio] 26.1 kg/m2 26.1 k g/m2 AALIYAH ([facility]) Body height 65 [in_i] 65 [in_i] AALIYAH ([facility]) Diastolic blood pressure 85 mm[Hg] 85 mm[Hg] AALIYAH ([facility]) Body mass index (BMI) [Ratio] 26.9 kg/m2 26.9 k g/m2 MEDENT ([facility], [facility]) Body height 63 [in_i] 63 [in_i] MEDENT ([facility] [place], [facility]) 5'3" Body weight 152.00 [lb_av] 152.00 [lb_av] MEDEN T ([facility], [facility]) Body temperature 98.6 [degF] 98.6 [degF] MEDENT ([facility] [place], [facility]) Oxygen saturation in Arterial blood by Pulse oximetry 98 % 98 % MEDENT ([facility], [facility]) Heart rate 78 /min 78 /min MEDENT ([facility], [facility]) Diastolic blood pressure 81 mm[Hg] 81 mm[Hg] MEDENT ([facility] [place], [facility]) Systolic blood pressure 113 mm[Hg] 113 mm[Hg] M EDENT ([facility], [facility]) Body weight 2470.08 [oz_av] 2470.08 [oz_av] ATH IRENE ([facility]) Systolic blood pressure 119 mm[Hg] 119 mm[Hg] A THENA ([facility]) Body mass index (BMI) [Ratio] 25.78 kg/m2 25.78 kg/m2 AALIYAH ([facility]) Body height 65 [in_i] 65 [in_i] AALIYAH ([facility]) Diastolic blood pressure 78 mm[Hg] 78 mm[Hg] AALIYAH ([facility]) Body weight 2470.08 [oz_av] 2470.08 [oz_av] ATH IRENE ([facility]) Systolic blood pressure 119 mm[Hg] 119 mm[Hg] A [facility] ([facility]) Body height 65 [in_i] 65 [in_i] AALIYAH ([facility]) Diastolic blood pressure 78 mm[Hg] 78 mm[Hg] AALIYAH ([facility]) Body weight 2470.08 [oz_av] 2470.08 [oz_av] ATH IRENE ([facility]) Systolic blood pressure 119 mm[Hg] 119 mm[Hg] A THENA ([facility]) Body height 65 [in_i] 65 [in_i] AALIYAH ([facility]) Diastolic blood pressure 78 mm[Hg] 78 mm[Hg] AALIYAH ([facility]) Body mass index (BMI) [Ratio] 11.2 kg/m2 11.2 k g/m2 [facility] [place], [facility]) Body height 63 [in_i] 63 [in_i] [facility] ([facility] [place], [facility]) 5'3" Body weight 63.00 [lb_av] 63.00 [lb_av] MEDENT ([facility] [place], [facility]) Body temperature 157.0 [degF] 157.0 [degF] MEDE NT ([facility] [place], [facility]) Oxygen saturation in Arterial blood by Pulse oximetry 99 % 99 % [facility] ([facility] [place], [facility]) Respiratory rate 17 /min 17 /min [facility] ( [facility], [facility]) Heart rate 83 /min 83 /min MEDENT ([facility], [facility]) Diastolic blood pressure 57 mm[Hg] 57 mm[Hg] MEDENT ([facility] [place], [facility]) Systolic blood pressure 105 mm[Hg] 105 mm[Hg] M EDENT ([facility], [facility]) Body weight 2518.08 [oz_av] 2518.08 [oz_av] ATH IRENE ([facility]) Systolic blood pressure 129 mm[Hg] 129 mm[Hg] A THENA ([facility]) Body mass index (BMI) [Ratio] 26.28 kg/m2 26.28 kg/m2 AALIYAH ([facility]) Body height 65 [in_i] 65 [in_i] AALIYAH ([facility]) Diastolic blood pressure 78 mm[Hg] 78 mm[Hg] AALIYAH ([facility]) Body weight 2518.08 [oz_av] 2518.08 [oz_av] ATH IRENE ([facility]) Systolic blood pressure 129 mm[Hg] 129 mm[Hg] A THENA ([facility]) Body height 65 [in_i] 65 [in_i] AALIYAH ([facility]) Diastolic blood pressure 78 mm[Hg] 78 mm[Hg] AALIYAH ([facility]) Body weight 2518.08 [oz_av] 2518.08 [oz_av] ATH IRENE ([facility]) Systolic blood pressure 129 mm[Hg] 129 mm[Hg] A [facility] ([facility]) Body height 65 [in_i] 65 [in_i] AALIYAH ([facility]) Diastolic blood pressure 78 mm[Hg] 78 mm[Hg] AALIYAH ([facility]) Body mass index (BMI) [Ratio] 24.8 kg/m2 24.8 k g/m2 MEDENT ([facility], [facility]) Body height 63 [in_i] 63 [in_i] MEDENT ([facility], [facility]) 5'3" Body weight 140.00 [lb_av] 140.00 [lb_av] MEDEN T ([facility] [place], [facility]) Body temperature 98.7 [degF] 98.7 [degF] MEDENT ([facility], [facility]) Oxygen saturation in Arterial blood by Pulse oximetry 99 % 99 % [facility] ([facility], [facility]) Heart rate 107 /min 107 /min MEDENT ([facility] [place], [facility]) Diastolic blood pressure 89 mm[Hg] 89 mm[Hg] MEDENT ([facility] [place], [facility]) Systolic blood pressure 135 mm[Hg] 135 mm[Hg] M EDENT ([facility] [place], [facility]) Diastolic blood pressure 70 mm[Hg] 70 mm[Hg] eCW1 (Formerly [facility]) Systolic blood pressure 118 mm[Hg] 118 mm[Hg] e CW1 (Formerly [facility]) Body mass index (BMI) [Ratio] 28.3 kg/m2 28.3 k g/m2 eCW1 (Formerly [facility]) Body height 63 [in_i] 63 [in_i] eCW1 ([facility]) Body weight 159.8 [lb_av] 159.8 [lb_av] eCW1 ([facility]) Diastolic blood pressure 76 mm[Hg] 76 mm[Hg] eCW1 (Formerly [facility]) Systolic blood pressure 124 mm[Hg] 124 mm[Hg] e CW1 (Formerly [facility]) Body mass index (BMI) [Ratio] 28.16 kg/m2 28.16 kg/m2 eCW1 (Formerly [facility]) Body height 63 [in_us] 63 [in_us] eCW1 ([facility]) Body weight Measured 159 [lb_av] 159 [lb_av] eC W1 (Formerly [facility]) Body mass index (BMI) [Ratio] 26.9 kg/m2 26.9 k g/m2 MEDENT ([facility]) Body weight 149.50 [lb_av] 149.50 [lb_av] MEDEN T ([facility]) Body height 62.5 [in_i] 62.5 [in_i] MEDENT ([facility]) 5'2.50" Body temperature 99.3 [degF] 99.3 [degF] MEDENT ([facility]) Body mass index (BMI) [Ratio] 24.8 kg/m2 24.8 k g/m2 MEDENT ([facility] [place], [facility]) Body height 63 [in_i] 63 [in_i] MEDENT ([facility], [facility]) 5'3" Body weight 140.00 [lb_av] 140.00 [lb_av] MEDEN T ([facility] [place], [facility]) Body temperature 98.9 [degF] 98.9 [degF] MEDENT ([facility] [place], [facility]) Oxygen saturation in Arterial blood by Pulse oximetry 99 % 99 % MEDENT ([facility], [facility]) Respiratory rate 18 /min 18 /min MEDENT ( [facility], [facility]) Heart rate 96 /min 96 /min MEDENT ([facility], [facility]) Diastolic blood pressure 81 mm[Hg] 81 mm[Hg] MEDENT ([facility], [facility]) Systolic blood pressure 136 mm[Hg] 136 mm[Hg] M EDENT ([facility], [facility]) Body mass index (BMI) [Ratio] 24.8 kg/m2 24.8 k g/m2 MEDENT ([facility], [facility]) Body height 63 [in_i] 63 [in_i] MEDENT ([facility], [facility]) 5'3" Body weight 140.00 [lb_av] 140.00 [lb_av] MEDEN T ([facility], [facility]) Body temperature 98.0 [degF] 98.0 [degF] MEDENT ([facility], [facility]) Oxygen saturation in Arterial blood by Pulse oximetry 99 % 99 % MEDENT ([facility], [facility]) Respiratory rate 16 /min 16 /min MEDENT ( [facility], [facility]) Heart rate 65 /min 65 /min MEDENT ([facility], [facility]) Diastolic blood pressure 75 mm[Hg] 75 mm[Hg] [facility] ([facility], [facility]) Systolic blood pressure 115 mm[Hg] 115 mm[Hg] [facility], [facility]) Body mass index (BMI) [Ratio] 24.8 kg/m2 24.8 k g/m2 MEDENT ([facility], [facility]) Body height 63 [in_i] 63 [in_i] MEDENT ([facility], [facility]) 5'3" Body weight 140.00 [lb_av] 140.00 [lb_av] MEDEN T ([facility], [facility]) Body temperature 98.0 [degF] 98.0 [degF] MEDENT ([facility] [place], [facility]) Oxygen saturation in Arterial blood by Pulse oximetry 99 % 99 % MEDENT ([facility], [facility]) Respiratory rate 16 /min 16 /min MEDENT ( [facility], [facility]) Heart rate 67 /min 67 /min MED[facility] ([facility], [facility]) Diastolic blood pressure 86 mm[Hg] 86 mm[Hg] MEDENT ([facility], [facility]) Systolic blood pressure 122 mm[Hg] 122 mm[Hg] M EDENT ([facility], [facility]) Patient Treatment Plan of Care Planned Activity Planned Date Details Description Data Source (s) Metronidazole 500 MG Oral Tablet 11/10/2019 12:00:00 AM EDT eCW1 (Former[facility]) valacyclovir 1000 MG Oral Tablet AALIYAH ([facility]) Sulfamethoxazole 800 MG / Trimethoprim 160 MG Oral Tablet AALIYAH ([facility]) Prednisone 20 MG Oral Tablet AALIYAH ([facility]) Prednisone 10 MG Oral Tablet AALIYAH ([facility]) Phenazopyridine hydrochloride 200 MG Oral Tablet AALIYAH ([facility]) Oseltamivir 75 MG Oral Capsule AALIYAH ([facility]) Ondansetron 4 MG Disintegrating Oral Tablet AALIYAH ([facility]) Omeprazole 20 MG Delayed Release Oral Capsule AALIYAH ([facility]) NITROFURANTOIN, MACROCRYSTALS 25 MG / Ni trofurantoin, Monohydrate 75 MG Oral Capsule AALIYAH ([facility]) Metronidazole 500 MG Oral Tablet AALIYAH ([facility]) gabapentin 300 MG Oral Capsule ALAIYAH ([facility]) cefdinir 300 MG Oral Capsule AALIYAH ([facility]) benzonatate 200 MG Oral Capsule AALIYAH ([facility]) Azithromycin 250 MG Oral Tablet AALIYAH ([facility]) Amoxicillin 875 MG / Clavulanate 125 MG Oral Tablet AALIYAH ([facility]) valacyclovir 1000 MG Oral Tablet AALIYAH ([facility]) Sulfamethoxazole 800 MG / Trimethoprim 160 MG Oral Tablet AALIYAH ([facility]) Prednisone 10 MG Oral Tablet AALIYAH ([facility]) Phenazopyridine hydrochloride 200 MG Oral Tablet AALIYAH ([facility]) NITROFURANTOIN, MACROCRYSTALS 25 MG / Ni trofurantoin, Monohydrate 75 MG Oral Capsule AALIYAH ([facility]) Metronidazole 500 MG Oral Tablet AALIYAH ([facility]) gabapentin 300 MG Oral Capsule AALIYAH ([facility]) cefdinir 300 MG Oral Capsule AALIYAH ([facility]) benzonatate 200 MG Oral Capsule AALIYAH ([facility]) Azithromycin 250 MG Oral Tablet AALIYAH ([facility]) Amoxicillin 875 MG / Clavulanate 125 MG Oral Tablet AALIYAH ([facility]) valacyclovir 1000 MG Oral Tablet AALIYAH ([facility]) Sulfamethoxazole 800 MG / Trimethoprim 160 MG Oral Tablet AALIYAH ([facility]) Prednisone 10 MG Oral Tablet AALIYAH ([facility]) Phenazopyridine hydrochloride 200 MG Oral Tablet AALIYAH ([facility]) NITROFURANTOIN, MACROCRYSTALS 25 MG / Ni trofurantoin, Monohydrate 75 MG Oral Capsule AALIYAH ([facility]) Metronidazole 500 MG Oral Tablet AALIYAH ([facility]) gabapentin 300 MG Oral Capsule AALIYAH ([facility]) cefdinir 300 MG Oral Capsule AALIYAH ([facility]) benzonatate 200 MG Oral Capsule AALIYAH ([facility]) Azithromycin 250 MG Oral Tablet AALIYAH ([facility]) Amoxicillin 875 MG / Clavulanate 125 MG Oral Tablet AALIYAH ([facility])
--- NOTE | 2020-08-29 14:44 | HPEPDOC ---
General Date of Admission 08/29/20 Date of Service: Aug 29, 2020 Chief Complaint The patient is a 35-year-old female admitted with a reason for visit of Diarrhea/Abd Pain/ Nausea. Source: Patient Timing/Duration: Week(s) Severity: Moderate History of Present Illness Patient is 35 years old female with past history of iron deficient anemia, restless leg syndrome, presented to the hospital with epigastric pain. Patient stated that she has been having epigastric pain for years, for past 3-4 weeks it's increased in intensity and associated with multiple episodes of vomiting and nausea. Also patient stated that she has been having chronic diarrhea for many years. She stated that she lost 14 pounds for past few months unintentio nicolas. Patient stated that she wake up in the middle of the night with epigastric pain, exacerbated by food. In ER patient was found to have hemoglobin 11.3, potassium 3.8, lipase negative, LFT unremarkable. CT abdomen pelvis was done on 08/21/20 and showed Small amount of air in the urinary bladder likely from recent catheterization. Mild to moderate fluid in the endometrial canal. No pancreatic abnormality is seen. Home Medications Scheduled Cetirizine HCl (Cetirizine HCl) 10 Mg Tablet, 10 MG PO QHS, (Reported) Fluticasone Furoate (Arnuity Ellipta) 100 Mcg Blst.w.dev, 100 MCG INH DAILY, (Reported) Gabapentin (Gabapentin) 400 Mg Capsule, 400 MG PO QHS, (Reported) Scheduled PRN Albuterol Sulf (Albuterol Sulfate) 2.5 Mg/3 Ml Vial.neb, 2.5 MG INH QID PRN for BRONCHOSPASM, (Reported) Hydrocodone/Acetaminophen (Hydrocodone-Acetamin 5-325 mg) 1 Each Tablet, 0.5 TAB PO Q6H PRN for PAIN, (Reported) Ondansetron (Ondansetron Odt) 8 Mg Tab.rapdis, 8 MG PO TID PRN for NAUSEA OR V OMITING, (Reported) Allergies Coded Allergies: No Known Allergies (Unverified , 01/27/20) Past Medical History Medical History iron deficient anemia, asthma, restless leg syndrome Surgical History 6 C-sections Family History Mother has diabetes and asthma Social History * Smoker: current smoker Alcohol: occationally Drugs: denies A-FIB/CHADSVASC A-FIB History Current/History of A-Fib/PAF?: No Current PO Anticoag Therapy: No Review of Systems Constitutional: Denies: Chills, Fever Eyes: Denies: Pain ENT: Denies: Head Aches Skin: Denies: Rash, Lesions Pulmonary: Denies: Dyspnea Cardiovascular: Denies: Chest Pain Gastrointestinal: Reports: Nausea, Vomiting, Abdominal Pain, Diarrhea Physical Examination General Exam: Negative: Alert, Cooperative Eye Exam: Negative: PERRLA ENT Exam: Negative: Atraumatic Neck Exam: Positive: Supple; Negative: JVD Chest Exam: Positive: Clear to auscultation Heart Exam: Positive: Rate Normal Telemetry: Positive: No significant arrhythmia Abdomen Exam: Positive: Tenderness (in epigastric area) Extremity Exam: Negative: Clubbing, Cyanosis Skin Exam: Positive: Nl turgor and temperature Neuro Exam: Positive: Normal Gait, Strength at 5/5 X4 ext Psych Exam: Positive: Mental status NL Vital Signs Vital Signs Date Time Temp Pulse Resp B/P (MAP) Pulse Ox O2 Delivery O2 Flow Rate FiO2 08/29/20 10:39 08/29/20 09:49 97.3 81 18 99 Room Air Laboratory Data Labs 24H Laboratory Tests 2 08/29/20 10:14: Immature Granulocyte % (Auto) 0.9, Neutrophils (%) (Auto) 62.2, Lymphocytes (%) (Auto) 27.1, Monocytes (%) (Auto) 7.3, Eosinophils (%) (Auto) 1.4, Basophils (%) (Auto) 1.1H, Neutrophils # (Auto) 4.1, Lymphocytes # (Auto) 1.8, Monocytes # (Auto) 0.5, Eosinophils # (Auto) 0.1, Basophils # (Auto) 0.1, Nucleated Red Blood Cells % (auto) 0.0, Prothrombin Time 14.5H, Prothromb Time International Ratio 1.11, Activated Partial Thromboplast Time 31.1, Urine Color YELLOW, Urine Appearance CLOUDYH, Urine pH 5.0, Urine Specific [place] 1.028, Urine Protein 1+H, Urine Glucose (UA) NEGATIVE, Urine Ketones TRACEH, Urine Blood 3+H, Urine Nitrite NEGATIVE, Urine Bilirubin NEGATIVE, Urine Urobilinogen 0.2, Urine Leukocyte Esterase NEGATIVE, Urine WBC (Auto) 3, Urine RBC (Auto) 6H, Urine Hyaline Casts (Auto) 0, Urine Bacteria (Auto) NEGATIVE, Urine Squamous Epithelial Cells 15, Urine Mucus (Auto) LARGE, Urine Sperm (Auto) , Anion Gap 5L, Glomerular Filtration Rate > 60.0, Calcium Level 9.4, Total Bilirubin 0.3, Direct Bilirubin 0.1, Aspartate Amino Transf (AST/SGOT) 15, Alanine Aminotransferase (ALT/SGPT) 25, Alkaline Phosphatase 77, Total Creatine Kinase 56, Creatine Kinase MB < 1.0, Creatine Kinase MB Relative Index 1.79, Troponin I < 0.02, Total Protein 7.8, Albumin 4.2, Albumin/Globulin Ratio 1.2, Amylase Level 51, Lipase 73, Human Chorionic Gonadotropin, Qual NEGATIVE 08/29/20 11:13: Lactic Acid Level 1.0 CBC/BMP Laboratory Tests 08/29/20 10:14 Assessment/Plan Patient is 35 years old female with past history of iron deficient anemia, restless leg syndrome, presented to the hospital with epigastric pain. Patient stated that she has been having epigastric pain for years, for past 3-4 weeks it's increased in intensity and associated with multiple episodes of vomiting and nausea. Also patient stated that she has been having chronic diarrhea for many years Patient stated that she wake up in the middle of the night with epigastric pain, exacerbated by food. In ER patient was found to have hemoglobin 11.3, potassium 3.8, lipase negative, LFT unremarkable. CT abdomen pelvis was done on 08/21/20 and showed Small amount of air in the urinary bladder likely from recent catheterization. Mild to moderate fluid in the endometrial canal. No pancreatic abnormality is seen. Problems (1) Abdominal pain Status: Chronic Problem Text: Differential diagnosis includes gastritis, PUD, stomach ulcer PPI IV We'll check H. pylori Pain management, Carafate I talked to Dr. Bautista, he will proceed with endoscopy today Nothing by mouth for now (2) Nausea & vomiting Status: Acute Problem Text: Secondary to gastritis, stomach ulcers or PUD Zofran (3) Chronic anemia Status: Chronic Problem Text: Hemoglobin stable Patient never had endoscopy, there is concern for atrophic gastritis which can be cause of chronic iron deficient anemia Patient does not tolerate by mouth iron Iron stable Patient never had consult from [facility]. I will give her a referral to [facility] upon discharge (4) Diarrhea Status: Chronic Problem Text: Most likely patient will need colonoscopy in the outpatient settings There is concern for pancreatic insufficiency, patient was recently hospitalized with elevated level of lipase We will check Ig4 Plan / VTE VTE Prophylaxis Ordered?: Yes MARIBETH GARNICA DO Aug 29, 2020 14:44
[2020-08-29] MEDS: PANTOPRAZOLE 40MG VIAL (C9113 PER 1) IV SCH (15:00)
[2020-08-29 16:00] LABS: ERYTHROCYTE SEDIMENTATION RATE 10 mm/hr (0-20)
[2020-08-29] MEDS: SUCRALFATE SUSP 1GM/10ML UD PO SCH ×2 (17:23→21:34)
[2020-08-29] MEDS: D5W 1,000 ML IV SCH (17:24)
[2020-08-29 17:30] VITALS: BP 128/76
[2020-08-29] MEDS ORDERED: ONDANSETRON 4MG/2ML VIAL IV PRN ×2 (19:00→20:45)
[2020-08-29 19:07] VITALS: BP 131/75
[2020-08-29] MEDS ORDERED: LIDOCAINE 2% 100MG/5ML SDV (FOR ANES.) As Ordered ONE (19:47)
[2020-08-29] MEDS ORDERED: propofoL 200 MG/20 ML VIAL As Ordered ONE ×2 (19:47→20:13)
[2020-08-29] MEDS ORDERED: MIDAZOLAM INJ 2MG/2ML VIAL (J2250 PER 1MG) As Ordered ONE (20:03)
[2020-08-29] MEDS ORDERED: fentaNYL 100 MCG/2 ML INJECTION (J3010) As Ordered ONE (20:03)
--- NOTE | 2020-08-29 20:49 | CR ---
CONSULTATION DATE: 08/29/2020 REASON FOR CONSULTATION: Diarrhea, abdominal pain and nausea. HISTORY OF PRESENT ILLNESS: The patient is a 35-year-old female who has had a history of anemia and epigastric pains. She has been having problems with epigastric pain for many years. Over the past few weeks she has had increased episodes of nausea and vomiting occurring, mainly after eating meals. She has been worked up for gallbladder disease, however has normal ultrasound. No HIDA scans in the past. She says the pain s mainly occur after meals and are worse before bed as well. She has not had any vomiting from Wednesday up until today, so the emesis is not constant, but she has had these epigastric pains for years as well. No recent travel or trauma. No prior surgery to her upper abnormal. She denies any problems with heartburn or reflux. No blood in her stool and no coughing or throwing up of any blood. PAST MEDICAL HISTORY: The patient's past medical history is significant for: 1. Iron deficiency anemia. 2. Asthma. 3. Restless leg syndrome. PAST SURGICAL HISTORY: The patient's past surgical history is significant for C-sections. FAMILY HISTORY: Noncontributory. SOCIAL HISTORY: Smokes daily. Denies drug or alcohol abuse. ALLERGIES: NONE. HOME MEDICATIONS: Please see Med Rec. REVIEW OF SYSTEMS: Pertinent positive and negatives as stated in the HPI. PHYSICAL EXAMINATION: GENERAL APPEARANCE: Alert and oriented x3, in no acute distress. VITAL SIGNS: Temperature 98.2, pulse 74, respirations 20, blood pressure 131/75, pulse is 95% on room air. HEENT: Pupils are equal, round and reactive to light and accommodation. HEART: S1, S2, regular rate and rhythm. LUNGS: Clear to auscultation bilaterally. ABDOMEN: Soft, nontender, mild tenderness epigastric only. No rebound or guarding. EXTREMITIES: No clubbing, cyanosis, or edema. LABORATORY STUDIES: White count 6.6, hemoglobin 11.3, platelet count 423. Potassium 3.8, creatinine 0.67, liver enzymes normal, lipase normal at 73. IMAGING DATA: CT abdomen and pelvis from 08/21/2020 did show trace fluid in the pelvic, small amount of air in the urinary bladder, mild to moderate fluid in the endometrial canal. No pancreatic abnormalities are seen. Gallbladder ultrasound from that same day showed normal ultrasound. No gallbladder wall thickening or pericholecystic fluid. Normal bile duct diameter at 4.4 mm and no signs of any stones. ASSESSMENT AND PLAN: The patient is a 35-year-old female with epigastric pains, nausea and vomiting. She denies any issues with heartburn or reflux, however her symptoms are typical for that. Ultrasound of the gallbladder was also negative, however gallbladder disease is also in the differential. Recommendation is to proceed with an EGD. If EGD is negative for any signs of ulceration or gastritis, then recommendation will be to proceed with a HIDA scan to evaluate for biliary dyskinesia. If we do find an ulcer or inflammation, we will recommend Carafate and Omeprazole and she will be stable for discharge in the morning.
[2020-08-29 21:00] VITALS: BP 129/75
[2020-08-29] MEDS ORDERED: GABAPENTIN 400MG CAP PO SCH (21:00)
[2020-08-29] MEDS ORDERED: CETIRIZINE (ZyrTEC) 10 MG TAB PO SCH (21:00)
[2020-08-29 21:30] VITALS: BP 128/76
[2020-08-29] MEDS: ACETAMINOPHEN TAB 650MG DOSE (2X325MG) PO PRN (21:34)
[2020-08-29 22:30] VITALS: BP 121/81
[2020-08-29 23:30] VITALS: BP 112/64
[2020-08-30 02:00] VITALS: BP 106/74
[2020-08-30] MEDS: SUCRALFATE SUSP 1GM/10ML UD PO SCH ×2 (04:06→08:31)
[2020-08-30] MEDS: PANTOPRAZOLE 40MG VIAL (C9113 PER 1) IV SCH (04:06)
[2020-08-30 06:00] VITALS: BP 103/56
[2020-08-30] MEDS: D5W 1,000 ML IV SCH ×2 (06:08→10:50)
[2020-08-30 06:36] LABS: HEMATOCRIT 33.8 % (36.0-47.0); HEMOGLOBIN 9.9 g/dl (12.0-15.5); MEAN CORPUSCULAR HEMOGLOBIN 23.7 pg (27.0-33.0); MEAN CORPUSCULAR HGB CONC 29.3 g/dl (32.0-36.5); MEAN CORPUSCULAR VOLUME 81.1 fl (80.0-96.0); PLATELET COUNT, AUTOMATED 359 10^3/uL (150-450); RED BLOOD COUNT 4.17 10^6/uL (4.00-5.40)
[2020-08-30 07:08] LABS: ALBUMIN 3.5 GM/DL (3.2-5.2); ALT/SGPT 22 U/L (12-78); BILIRUBIN,TOTAL 0.6 MG/DL (0.2-1.0); BLOOD UREA NITROGEN 5 MG/DL (7-18); CALCIUM LEVEL 8.5 MG/DL (8.5-10.1); CARBON DIOXIDE LEVEL 25 MEQ/L (21-32); CHLORIDE LEVEL 107 MEQ/L (98-107); GLOMERULAR FILTRATION RATE > 60.0 (>60); GLUCOSE, FASTING 91 MG/DL (70-100); POTASSIUM SERUM 3.6 MEQ/L (3.5-5.1); SODIUM LEVEL 140 MEQ/L (136-145); TOTAL PROTEIN 6.8 GM/DL (6.4-8.2)
--- NOTE | 2020-08-30 07:57 | RO ---
OPERATIVE NOTE DATE OF OPERATION: 08/29/2020 PREOPERATIVE DIAGNOSIS: Nausea and vomiting. POSTOPERATIVE DIAGNOSIS: Gastritis and duodenitis. PROCEDURE: Esophagogastroduodenoscopy (EGD) with biopsy. SURGEON: Shahab Bautista DO CARTRIDGE ASSEMBLER: None. ANESTHESIA: IV sedation. ESTIMATED BLOOD LOSS: Minimal. COMPLICATIONS: None. INDICATION FOR PROCEDURE: The patient is a 35-year-old female who presents with intractable nausea, vomiting, epigastric pain due to concern for possible gastric ulcer versus gastritis. Recommendation is to proceed with esophagogastroduodenoscopy (EGD). Risks and benefits of procedure are not limited to, but include bleeding, infection, perforation, damage to surrounding structures and the need for further surgery were discussed in detail and informed consent was obtained and procedure was planned. DESCRIPTION OF PROCEDURE: The patient was brought back to the operating room 3. After sufficient sedation, time-out was done to confirm proper patient and proper procedure. Following that, she was placed in the left lateral decubitus position. The endoscope was then passed through the oropharynx, through the esophagus, into the stomach and into the second portion of the duodenum. There is minimal inflammation identified in the duodenal bulb. No ulcerations, no active bleeding. The scope was then retracted back into the pylorus. There was some minimal inflammation there as well. Biopsy was taken there with forceps for Helicobacter pylori. The scope was then retracted back into the rest of the stomach and the esophagus. No other abnormalities were identified. The scope was then removed. The patient was awakened from anesthesia and sent to the post anesthesia care unit (PACU) in stable condition. Recommendation at this time is to continue the patient on proton pump inhibitors (PPIs), as well as Carafate and plan on discharge to home. Will recommend checking HIDA scan while she is here just to save her time. However, postop she did reveal to me that she drinks excessive amounts of caffeine including 3 Red Bulls a day and coffee and soda on top of that as well. I explain to her that is most likely the cause of her issues and recommended that she decrease back from those significantly.
--- NOTE | 2020-08-30 08:14 | ECGEPIP ---
[facility] - ED Test Date: 2020-08-29 Pat Name: YAO HAINES Department: Room: - Gender: Female Prototype Engineer: JOSE : 1985 Requested By: DEVIN Diaz Order Number: [id number] Reading MD: Jazmin Lipscomb Measurements Intervals [place] Rate: 70 P: 26 NE: 150 QRS: -19 QRSD: 102 T: 34 QT: 402 QTc: 434 Interpretive Statements Normal sinus rhythm Moderate voltage criteria for LVH, may be normal variant ( R in aVL , Los product ) Septal infarct , age undetermined similar 06/23/15 Electronically Signed on 08-30-2020 8:14:06 EST by Jazmin Lipscomb
[2020-08-30] MEDS ORDERED: ENOXAPARIN 40MG/0.4ML SYRINGE (J1650 PER 10MG) SC SCH (09:00)
[2020-08-30 10:27] VITALS: BP 102/65
[2020-08-30] MEDS: ACETAMINOPHEN TAB 650MG DOSE (2X325MG) PO PRN (10:31)
[2020-08-30] MEDS ORDERED: SUCR1ORA PO (10:47)
[2020-08-30] MEDS ORDERED: OMEP40CA97 PO (10:47)
[2020-08-30 13:00] VITALS: BP 104/66
--- NOTE | 2020-08-30 13:10 | REP ---
INDICATION: RUQ pains. COMPARISON: Comparison CT study 21 August 2020.. TECHNIQUE/RADIOTRACER AND DOSE: 6.6 mCi of Technetium-99m mebrofenin was injected and sequential anterior images are acquired. 65 minutes after the mebrofenin injection, the patient consumed 8 ounces Ensure and an additional 60 minutes of imaging was acquired. Regions of interest are plotted around the gallbladder. FINDINGS: The initial hepatocellular parenchymal uptake phase is normal and homogeneous. Intra- and extra-hepatic bile ducts are labeled by the 10-minute image. The gallbladder is first labeled on the 15-minute image. There is normal washout from the liver parenchyma into the gallbladder and small intestine on subsequent images. IMPRESSION: Normal hepatobiliary scan. <Electronically signed by Roberth Vargas > 08/30/20 [id number]
--- NOTE | 2020-08-30 17:25 | DS.PDOC ---
Discharge Summary General Date of Admission Aug 29, 2020 at 14:26 Date of Discharge 08/30/20 Discharge Summary PROCEDURES PERFORMED DURING STAY: [None]. ADMITTING DIAGNOSES: Abdominal pain Gastritis Nausea & vomiting Chronic anemia Diarrhea DISCHARGE DIAGNOSES: Abdominal pain Gastritis Nausea & vomiting Chronic anemia Diarrhea COMPLICATIONS/CHIEF COMPLAINT: Intractable Vomiting. HISTORY OF PRESENT ILLNESS:Patient is 35 years old female with past history of iron deficient anemia, restless leg syndrome, presented to the hospital with epigastric pain. Patient stated that she has been having epigastric pain for years, for past 3-4 weeks it's increased in intensity and associated with multiple episodes of vomiting and nausea. Also patient stated that she has been having chronic diarrhea for many years. Patient stated that she wake up in the middle of the night with epigastric pain, exacerbated by food. In ER patient was found to have hemoglobin 11.3, potassium 3.8, lipase negative, LFT unremarkable. CT abdomen pelvis was done on 08/21/20 and showed Small amount of air in the urinary bladder likely from recent catheterization. Mild to moderate fluid in the endometrial canal. No pancreatic abnormality is seen. HOSPITAL COURSE: During hospital stay the following issues addressed (1) Abdominal pain Differential diagnosis includes gastritis, PUD, stomach ulcer Patient received PPI IV H. pylori pending Pain management, Carafate Endoscopy showed . There was some minimal inflammation there as well. Biopsy was taken there with forceps for Helicobacter pylori. The scope was then retrac ana back into the rest of the stomach and the esophagus. No other abnormalities were identified. (2) Nausea & vomiting Secondary to gastritis, stomach ulcers or PUD Zofran (3) Chronic anemia Hemoglobin stable Patient never had endoscopy, there is concern for atrophic gastritis which can be cause of chronic iron deficient anemia Patient does not tolerate by mouth iron Iron stable Patient never had consult from manager business. I will give her a referral to manager business upon discharge (4) Diarrhea Most likely patient will need colonoscopy in the outpatient settings There is concern for pancreatic insufficiency, patient was recently hospitalized with elevated level of lipase Await Ig4 DISCHARGE MEDICATIONS: Please see below. ALLERGIES: Please see below. PHYSICAL EXAMINATION ON DISCHARGE: VITAL SIGNS: Please see below. GENERAL APPEARANCE: NAD HEENT: no scleral icterus, no JVD, EOMI CARDIOVASCULAR: S1S2 LUNGS: CTA ABDOMEN: soft & not tender w palpitation MUSCULOSKELETAL: no cyanosis, no swelling INTEGUMENT: no generalized pallor NEUROLOGICAL: cranial nerve function from 2-12 intact intact, follows commands, speech not dysarthric LABORATORY DATA: Please see below. IMAGING: [facility] NAME: YAO HAINES DATE OF : 1985 AGE: 35 SEX: F REPORT #: [id number] ROOM: [facility] TECHNOLOGIST: MANISHA DOCTOR: CHACORTA BOB DO Ordered for Date&Time: 08/29/202200 cc: [~ rep ct ivnm] Service Date&Time: 08/30/20 1255 This report is in Signed status. If this report is in a DRAFT status it has not yet been reviewed by the radiologist for accuracy. Thank you for having your radiology procedures performed at [facility] RADIOLOGY REPORT Date&Time printed: [~ rep prt dt last] [~ rep prt tm last] Page 2 of 2 [place] [address] RADIOLOGY REPORT This report is in Signed status. If this report is in a DRAFT status it has not yet been reviewed by the radiologist for accuracy. Thank you for having your radiology procedures performed at [facility] RADIOLOGY REPORT Date&Time printed: [~ rep prt dt last] [~ rep prt tm last] Page 1 of 1 INDICATION: RUQ pains. COMPARISON: Comparison CT study 21 August 2020.. TECHNIQUE/RADIOTRACER AND DOSE: 6.6 mCi of Technetium-99m mebrofenin was injected and sequential anterior images are acquired. 65 minutes after the mebrofenin injection, the patient consumed 8 ounces Ensure and an additional 60 minutes of imaging was acquired. Regions of interest are plotted around the gallbladder. FINDINGS: The initial hepatocellular parenchymal uptake phase is normal and homogeneous. Intra- and extra-hepatic bile ducts are labeled by the 10-minute image. The gallbladder is first labeled on the 15-minute image. There is normal washout from the liver parenchyma into the gallbladder and small intestine on subsequent images. IMPRESSION: Normal hepatobiliary scan. <Electronically signed by Roberth Vargas > 08/30/20 1306 DD: Torsten Vargas MD 08/30/20 1305 DT: SAM 08/30/20 1306 DS: ANDRIA 08/30/20 1305 08/30/20 1305 [~ rep ct labl] PROGNOSIS: Fair ACTIVITY: [As tolerated]. DIET: Avoid alcohol, red bull DISPOSITION: 01 Home, Self-Care. ITEMS TO FOLLOWUP ON ON OUTPATIENT: With PCP and manager business DISCHARGE CONDITION: [Stable]. TIME SPENT ON DISCHARGE: 30minutes. Vital Signs/I&Os Vital Signs Date Time Temp Pulse Resp B/P (MAP) Pulse Ox O2 Delivery O2 Flow Rate FiO2 08/30/20 13:00 97.2 61 18 104/66 (79) 100 Room Air I&O- Last 24 Hours up to 6 AM 08/30/20 06:00 Intake Total 2205 ml Output Total 0 ml Balance 2205 ml Laboratory Data Labs 24H Laboratory Tests 2 08/30/20 05:37: Nucleated Red Blood Cells % (auto) 0.0, Anion Gap 8, Glomerular Filtration Rate > 60.0, Calcium Level 8.5, Magnesium Level 2.0, Total Bilirubin 0.6#, Aspartate Amino Transf (AST/SGOT) 17, Alanine Aminotransferase (ALT/SGPT) 22, Alkaline Phosphatase 70, Total Protein 6.8, Albumin 3.5, Albumin/Globulin Ratio 1.1L CBC/BMP Laboratory Tests 08/30/20 05:37 Microbiology Microbiology 08/29/20 Respiratory Virus Panel (PCR) (DEE) - Final, Complete Discharge Medications Scheduled Cetirizine HCl (Cetirizine HCl) 10 Mg Tablet, 10 MG PO QHS, (Reported) Fluticasone Furoate (Arnuity Ellipta) 100 Mcg Blst.w.dev, 100 MCG INH DAILY, (Reported) Gabapentin (Gabapentin) 400 Mg Capsule, 400 MG PO QHS, (Reported) Omeprazole (Omeprazole) 40 Mg Capsule.dr, 40 MG PO DAILY Sucralfate (Sucralfate) 1 Gm/10 Ml Oral.susp, 1 GM PO Q6H Scheduled PRN Albuterol Sulf (Albuterol Sulfate) 2.5 Mg/3 Ml Vial.neb, 2.5 MG INH QID PRN for BRONCHOSPASM, (Reported) Hydrocodone/Acetaminophen (Hydrocodone-Acetamin 5-325 mg) 1 Each Tablet, 0.5 TAB PO Q6H PRN for PAIN, (Reported) Ondansetron (Ondansetron Odt) 8 Mg Tab.rapdis, 8 MG PO TID PRN for NAUSEA OR VOMITING, (Reported) Allergies Coded Allergies: No Known Allergies (Unverified , 01/27/20) MARIBETH GARNICA DO Aug 30, 2020 17:25
[2020-08-31 12:09] LABS: ANTINUCLEAR ANTIBODIES DIRECT Negative (Negative)
[2020-09-02 17:11] LABS: IgG SERUM (part of Subclasses) 1107 mg/dL (586-1602); IgG Subclass 1 752 mg/dL (248-810); IgG Subclass 2 250 mg/dL (130-555); IgG Subclass 3 81 mg/dL (15-102); IgG Subclass 4 28 mg/dL (2-96)
== END 2020-08-30 14:48 | disposition home or self-care (01) | DRG 241 ==
LOC: M ED 09:48 → M ED INP 14:26 → M MSPAV 16:46
PROVIDERS: ADMIT Internal Medicine; ATTEND Internal Medicine
PROC: 0DB78ZX Excision of Stomach, Pylorus, Via Natural or Artificial Opening Endoscopic, Diagnostic (ICD-10-PCS; principal; 2020-08-29 18:30)
DX: K29.00 Acute gastritis without bleeding (principal); D50.9 Iron deficiency anemia, unspecified; G25.81 Restless legs syndrome; F17.200 Nicotine dependence, unspecified, uncomplicated; J45.909 Unspecified asthma, uncomplicated; Z79.899 Other long term (current) drug therapy

== ENCOUNTER → 2020-11-08 | Outpatient (REF) | payer OTHER ==
[~2020-11-08] MED LIST changes: +CETI-14 PO; +OMEP40CA97 PO; +ONDA8TAB8 PO; +SUCR1ORA PO
== END ==
LOC: M LAB REF 19:56
PROVIDERS: ATTEND Physician Assistant
DX: N30.01 Acute cystitis with hematuria (principal)

== ENCOUNTER → 2021-05-16 | Outpatient (CLI) | payer OTHER ==
[~2021-05-16] MED LIST changes: +GABA-283 PO; -GABA-845 PO; +LEVOTAB10 PO; +OMEP-221 PO; +OMEP40CA4 PO; -OMEP40CA97 PO
== END ==
LOC: M LABSMTC 10:36
PROVIDERS: ATTEND Anesthesiology
DX: Z01.818 Encounter for other preprocedural examination (principal); Z11.52 Encounter for screening for COVID-19

== ENCOUNTER 2021-05-21 12:14 | Day surgery (SDC) | payer OTHER ==
[~2021-05-21] VITALS: Ht 160 cm; Wt 54.8 kg
[~2021-05-21 12:14] MED LIST changes: +NS 1,000 ML IV ONE
--- OUTSIDE RECORDS SUMMARY | 2021-05-21 12:18 | CCD ---
Author Organization Unknown Address [address] [place] [address] Phone [phone] Care Team Providers Care Patient Relations Director Name Role Phone Filiberto Estevez Unavailable Unavailable Allergies Code Code System Name Reaction Severity Status Onset NKDA Medications Name Status Start Date Stop Date albuterol sulfate HFA 90 mcg/actuation a erosol inhaler INHALE TWO PUFFS BY MOUTH EVERY 4 HOURS NEEDED FOR SHORTNESS OF BREATH OR WHEEZING Active Not available amoxicillin 875 mg-potassium clavulanate 125 mg tablet TAKE ONE TABLET BY MOUTH TWO TIMES A DAY FOR 10 DAYS Completed 03/27/2021 Arnuity Ellipta 100 mcg/actuation powder for inhalation INHALE ONE PUFF BY MOUTH EVERY DAY Completed 03/12 Arnuity Ellipta 200 mcg/actuation powder for inhalation Inhale 1 puff every day by inhalation route. Active Not available azithromycin 250 mg tablet Completed 05/03 B-12 Plus 1 tab by mouth daily Active 12/04/2020 Not available benzonatate 200 mg capsule TAKE ONE TABLET BY MOUTH EVERY 8 HOURS NEEDED FOR COUGH Completed 03/27/2021 cefdinir 300 mg capsule Completed 05/03/20 cephalexin 500 mg capsule TAKE ONE CAPSULE BY MOUTH TWICE A DAY FOR 7 DAYS Completed 01/17/2021 cetirizine 10 mg tablet TAKE ONE TABLET BY MOUTH EVERY DAY Active Not available DOK 100 mg capsule 1 TABLET PO PRN Completed 01/17/2021 ferrous gluconate 324 mg (38 mg iron) tablet Completed 01/17/2021 gabapentin 300 mg capsule Completed 2019 gabapentin 400 mg capsule TAKE ONE CAPSULE BY MOUTH TWICE A DAY NEEDED Active Not available hydrocodone 5 mg-acetaminophen 325 mg ta blet TAKE ONE TABLET BY MOUTH THREE TIMES A DAY NEEDED FOR PAIN MAXIMUM DAILY DOSE THREE TABLETS Completed 01/17/2021 metronidazole 500 mg tablet Completed 04/12 nitrofurantoin monohydrate/macrocrystals 100 mg capsule Complete d 05/03/2020 omeprazole 20 mg capsule,delayed release TAKE ONE CAPSULE BY MOUTH EVERY MORNING ON AN EMPTY STOMACH WITH WATER Completed 08/27/2020 omeprazole 40 mg capsule,delayed release TAKE ONE CAPSULE BY MOUTH EVERY DAY Active Not available ondansetron 4 mg disintegrating tablet DISSOLVE ONE TABLET ON TONGUE EVERY 6 TO 8 HOURS NEEDED FOR NAUSEA AND VOMITING Completed 08/27/[address] ONE TABLET UNDER THE TONGUE THREE TIMES A DAY Completed 01/17/2021 oseltamivir 75 mg capsule TAKE ONE CAPSULE BY MOUTH TWICE A DAY FOR 5 DAYS Completed 08/27/2020 phenazopyridine 100 mg tablet TAKE ONE TABLET BY MOUTH TWICE A DAY WITH FOOD FOR 2 DAYS Completed 01/17/2021 phenazopyridine 200 mg tablet Completed prednisone 10 mg tablet Completed 05/03/20 prednisone 20 mg tablet TAKE TWO TABLETS BY MOUTH EVERY DAY Completed sucralfate 1 gram tablet TAKE ONE TABLET BY MOUTH EVERY 6 HOURS Completed 01/17/2021 sulfamethoxazole 800 mg-trimethoprim 160 mg tablet Completed 05/03/2020 valacyclovir 1 gram tablet Completed 05/03 Xyzal 5 mg tablet Take 1 tablet every day by oral route. Active Not available Problems Name Status Onset Date Source Body Mass Index 25-29 - Overweight Active 10/22/2016 History Anemia Active 10/22/2016 History Generalized Anxiety Disorder Active 10/22/2016 His tory Restless Legs Active 10/22/2016 History Low Back Pain Active 10/22/2016 History Tingling of Skin Active 10/22/2016 History Neck Pain Active 11/10/2016 History Clinical Finding Unknown 11/10/2016 History Finding of Neck Region Unknown 11/10/2016 History Diffuse Goiter Active 12/15/2016 [...] Esophagitis Active 02/23/2020 History Finding of Esophagus Unknown 02/23/2020 History Hyperlipidemia Active 03/27/2021 Procedures Date Name Performed by Remove Tonsils and Adenoids Information not available Ligation of Fallopian Tube Information n ot available Delivery Information not avai lable 08/27/2020 MRI, Abdomen, W/wo Contrast Information not available Notes: section x 6, tubal ligat ion 05/2016, Tonsillectomy, appendix Results Lab Results Date Name Specimen Result Interpretation Description Value Range Status Address 03/21/2021 Lipid Panel, Serum Blood venous Normal Talia sterol, Total 174 mg/dL <200 mg/dL Final [facility]: [address] [facility] Blood venous Normal HDL Cholesterol 51 mg/dL > or = 50 mg/dL Final [facility]: [address] [facility] Blood venous Normal Triglycerides 75 mg/dL <150 m g/dL [facility]: [address] [facility] Blood venous High LDL-cholesterol 107 mg/dL (ca lc) Final [facility]: [address] [facility] Blood venous Normal Chol/hdlc Ratio 3.4 (calc) <5 .0 (calc) Final [facility]: [address] [facility] Blood venous Normal Non HDL Cholesterol 123 mg/dL (calc) <130 mg/dL (calc) [facility] [address] [facility] 03/21/2021 Tsh Blood venous Normal Tsh 1.82 mIU/L Fi nal [facility]: [address] [facility] 02/03/2021 SARS CoV 2 RdRp Gene, QL Probe, Respiratory Specimen Normal Sars-cov-2 negative negative Final [facility]: [address], [place] 02/03/2021 Urinalysis, Dipstick, Auto Normal Bilirubin ne g Final [facility]: [address], [place] Normal Blood neg Final [facility]: [address], [place] Normal Glucose neg Final [facility]: [address], [place] Normal Ketone neg Final [facility]: [address], [place] Normal Leukocytes neg Final [facility]: [address], [place] Normal Nitrite neg Final [facility]: [address], [place] Normal Ph 7.0 Final [facility]: [address] [facility] [address] [place] Normal Protein neg Final [facility]: [address] [facility] [address] [place] Normal Specific [place] 1.010 Final [facility]: [address] [facility] [address] [place] Normal Urobilinogen 0.2 Final [facility]: [address] [facility] [address], [place] 01/29/2021 CBC W/ Auto Diff Normal White Blood Count 9.1 10 4.0-10.0 10 Final [facility]: [address] [facility] Normal Red Blood Count 4.44 10 4.00-5.40 10 [facility]: [address] [facility] Normal Hemoglobin 12.6 g/dL 12.0-15.5 g/dL [facility]: [address] [facility] Normal Hematocrit 38.1 % 36.0-47.0 % [facility]: [address] [facility] Normal Mean Corpuscular Volume 85.8 fL 80.0 -96.0 fL [facility]: [address] [facility] Normal Mean Corpuscular Hemoglobin 28.4 pg 27.0-33.0 pg [facility]: [address] [facility] Normal Mean Corpuscular HGB Conc 33.1 g/dL 32.0-36.5 g/dL [facility]: [address] [facility] Normal Red Cell Distribution Width 14.0 % 1 1.5-14.5 % [facility]: [address] [facility] Normal Platelet Count, Automated 357 10 150 -450 10 [facility]: [address] [facility] High Neutrophils % 70.1 % 36.0-66.0 % [facility]: [address] [facility] Low Lymph % 22.8 % 24.0-44.0 % [facility]: [address] [facility] Normal [place] % 5.0 % 2.0-8.0 % [facility]: [address] [facility] Normal Eos % 1.0 % 0.0-3.0 % [facility]: [address] [facility] Normal Baso % 0.7 % 0.0-1.0 % [facility]: [address] [facility] Normal Immature Granulocyte % 0.4 % 0-3.0 % [facility]: [address] [facility] Normal Nucleated Red Blood Cell % 0.0 % 0- 0 % [facility]: [address] [facility] Normal Neutrophils # 6.4 10 1.5-8.5 10 [facility]: [address] [facility] Normal Lymph # 2.1 10 1.5-5.0 10 [facility]: [address] [facility] Normal [place] # 0.5 10 0.0-0.[address] [facility]: [address] [facility] Normal Eos # 0.1 10 0.0-0.5 10 [facility]: [address] [facility] Normal Baso # 0.1 10 0.0-0.[address] [facility]: [address] [facility] 01/29/2021 Reticulocyte Panel, Blood Normal Reticulocy te % 0.9 % 0.5-1.5 % [facility]: [address] [facility] Normal Reticulocyte # 40.0 10 17-77 10 [facility]: [address] [facility] Normal Retic Hemoglobin Equivalent 33.3 pg 24-36 pg [facility]: [address] [facility] 01/29/2021 CMP, Serum or Plasma High Glucose, Fastin g 101 mg/dL 70-100 mg/dL [facility]: [address] 0 [facility] Normal Blood Urea Nitrogen 7 mg/dL 7-18 mg/ dL [facility]: [address] [facility] Normal Creatinine for GFR 0.66 mg/dL 0.55-1 .30 mg/dL [facility]: [address] [facility] Normal Glomerular Filtration Rate > 60.0 >6 0 [facility]: [address] [place] [address] Normal Sodium Level 138 mEq/L 136-145 mEq/L [facility]: [address] [place] [address] Normal Potassium Serum 3.5 mEq/L 3.5-5.1 mE q/L [facility]: [address] [place] [address] Normal Chloride Level 107 mEq/L 98-107 mEq/ L [facility]: [address] [place] [address] Normal Carbon Dioxide Level 26 mEq/L 21-32 mEq/L [facility]: [address] [place] [address] Low Anion Gap 5 mEq/L 8-16 mEq/L [facility]: [address] [place] [address] Low Calcium Level 8.4 mg/dL 8.5-10.1 mg/ dL [facility]: [address] [place] [address] Normal AST/SGOT 15 U/L 7-37 U/L [facility]: [address] [place] [address] Normal ALT/SGPT 31 U/L 12-78 U/L [facility]: [address] [place] [address] Normal Alkaline Phosphatase 65 U/L 45-117 U /L [facility]: [address] [place] [address] Normal Bilirubin,total 0.3 mg/dL 0.2-1.0 mg /dL [facility]: [address] [place] [address] Normal Total Protein 7.7 gm/dL 6.4-8.2 gm/d L [facility]: 0 [facility] Normal Albumin 4.0 gm/dL 3.2-5.2 gm/dL [facility]: [address] [place] [address] Low Albumin/globulin Ratio 1.1 1.2-2. 2 [facility]: [address] [place] [address] 01/29/2021 TIBC (Total Iron-binding Capacity), Serum Low Iron (Fe) 41 ug/dL 50-170 ug/dL [facility] nter: 0 [facility] Normal Total Iron Binding Capacity 267 ug/d L 250-450 ug/dL [facility]: [address] [facility] Normal Percent Saturation 15.4 % 13.2-45.0 % [facility]: [address] [facility] 01/29/2021 Ferritin, Serum or Plasma Normal Ferritin 64 NG/mL 8-252 NG/mL [facility]: [address] [facility] 01/29/2021 Vitamin B12, Serum Normal Vitamin B12 Level 768 pg/mL 247-911 pg/mL [facility]: [address] [facility] 01/29/2021 Folate, Serum Normal Folate 18.0 NG/mL >5.4 NG /mL [facility]: [address] [facility] 01/29/2021 Tissue Transglutaminase IgA Normal Tissue Transglutaminase IgA <2 U/mL 0-3 U/mL [facility] nter: [address] [facility] 12/16/2020 CBC W/ Auto Diff Normal White Blood Count 9.4 10 4.0-10.0 10 [facility]: [address] [facility] Normal Red Blood Count 4.56 10 4.00-5.40 10 [facility]: [address] [facility] Normal Hemoglobin 12.3 g/dL 12.0-15.5 g/dL [facility]: [address] [facility] Normal Hematocrit 38.2 % 36.0-47.0 % [facility]: [address] [facility] Normal Mean Corpuscular Volume 83.8 fL 80.0 -96.0 fL [facility]: [address] [facility] Normal Mean Corpuscular Hemoglobin 27.0 pg 27.0-33.0 pg [facility]: [address] [facility] Normal Mean Corpuscular HGB Conc 32.2 g/dL 32.0-36.5 g/dL [facility]: 0 [facility] High Red Cell Distribution Width 20.4 % 1 1.5-14.5 % [facility]: [address] [facility] Normal Platelet Count, Automated 343 10 150 -450 10 [facility]: [address] [facility] Normal Neutrophils % 63.1 % 36.0-66.0 % [facility]: [address] [facility] Normal Lymph % 29.3 % 24.0-44.0 % [facility]: [address] [facility] Normal [place] % 5.1 % 2.0-8.0 % Final [facility]: [address] [facility] Normal Eos % 1.5 % 0.0-3.0 % [facility]: [address] [facility] Normal Baso % 0.7 % 0.0-1.0 % [facility]: [address] [facility] Normal Immature Granulocyte % 0.3 % 0-3.0 % [facility]: [address] [facility] Normal Nucleated Red Blood Cell % 0.0 % 0- 0 % [facility]: [address] [facility] Normal Neutrophils # 5.9 10 1.5-8.5 10 [facility]: [address] [facility] Normal Lymph # 2.8 10 1.5-5.0 10 [facility]: [address] [facility] Normal [place] # 0.5 10 0.0-0.[address] [facility]: [address] [facility] Normal Eos # 0.1 10 0.0-0.5 10 [facility]: [address] [facility] Normal Baso # 0.1 10 0.0-0.[address] [facility]: 0 [facility] 12/16/2020 CMP, Serum or Plasma High Glucose, Fastin g 114 mg/dL 70-100 mg/dL [facility]: [address] 0 [facility] Low Blood Urea Nitrogen 6 mg/dL 7-18 mg/ dL [facility]: 0 [facility] Normal Creatinine for GFR 0.59 mg/dL 0.55-1 .30 mg/dL [facility]: 0 [facility] Normal Glomerular Filtration Rate > 60.0 >6 0 [facility]: [address] [facility] Normal Sodium Level 139 mEq/L 136-145 mEq/L [facility]: 0 [facility] Normal Potassium Serum 3.5 mEq/L 3.5-5.1 mE q/L [facility]: [address] [facility] Normal Chloride Level 107 mEq/L 98-107 mEq/ L [facility]: 0 [facility] Normal Carbon Dioxide Level 27 mEq/L 21-32 mEq/L [facility]: [address] [place] [address] Low Anion Gap 5 mEq/L 8-16 mEq/L [facility]: [address] [place] [address] Normal Calcium Level 8.7 mg/dL 8.5-10.1 mg/ dL [facility]: 0 [facility] Normal AST/SGOT 13 U/L 7-37 U/L [facility]: 0 [facility] Normal ALT/SGPT 23 U/L 12-78 U/L [facility]: 0 [facility] Normal Alkaline Phosphatase 63 U/L 45-117 U /L [facility]: 0 [facility] Normal Bilirubin,total 0.3 mg/dL 0.2-1.0 mg /dL [facility]: 0 [facility] Normal Total Protein 7.4 gm/dL 6.4-8.2 gm/d L [facility]: 0 [facility] Normal Albumin 3.9 gm/dL 3.2-5.2 gm/dL [facility]: 0 [facility] Low Albumin/globulin Ratio 1.1 1.2-2. 2 [facility]: [address] [place] [address] 12/16/2020 TIBC (Total Iron-binding Capacity), Serum Low Iron (Fe) 36 ug/dL 50-170 ug/dL [facility] nter: [address] [facility] Low Total Iron Binding Capacity 239 ug/d L 250-450 ug/dL [facility]: [address] [facility] Normal Percent Saturation 15.1 % 13.2-45.0 % [facility]: [address] [facility] 12/16/2020 Ferritin, Serum or Plasma Normal Ferritin 86 NG/mL 8-252 NG/mL [facility]: [address] [facility] 10/16/2020 Reticulocyte Panel, Blood Normal Reticulocy te % 1.4 % 0.5-1.5 % [facility]: [address] 0 [facility] Normal Reticulocyte # 57.8 10 17-77 10 [facility]: [address] [facility] Low Retic Hemoglobin Equivalent 22.5 pg 24-36 pg [facility]: [address] [facility] 10/16/2020 CBC W/ Auto Diff Normal White Blood Count 9.5 10 4.0-10.0 10 [facility]: [address] [facility] Normal Red Blood Count 4.23 10 4.00-5.40 10 [facility]: 0 [facility] Low Hemoglobin 10.0 g/dL 12.0-15.5 g/dL [facility]: 0 [facility] Low Hematocrit 32.7 % 36.0-47.0 % [facility]: 0 [facility] Low Mean Corpuscular Volume 77.3 fL 80.0 -96.0 fL [facility]: [address] [facility] Low Mean Corpuscular Hemoglobin 23.6 pg 27.0-33.0 pg [facility]: 0 [facility] Low Mean Corpuscular HGB Conc 30.6 g/dL 32.0-36.5 g/dL [facility]: 0 [facility] High Red Cell Distribution Width 15.2 % 1 1.5-14.5 % [facility]: [address] [facility] Normal Platelet Count, Automated 352 10 150 -450 10 [facility]: [address] [facility] High Neutrophils % 71.4 % 36.0-66.0 % [facility]: [address] [facility] Low Lymph % 21.0 % 24.0-44.0 % [facility]: [address] [facility] Normal [place] % 5.9 % 2.0-8.0 % [facility]: [address] [facility] Normal Eos % 0.8 % 0.0-3.0 % [facility]: [address] [facility] Normal Baso % 0.5 % 0.0-1.0 % [facility]: [address] [facility] Normal Immature Granulocyte % 0.4 % 0-3.0 % [facility]: [address] [facility] Normal Nucleated Red Blood Cell % 0.0 % 0- 0 % [facility]: [address] [facility] Normal Neutrophils # 6.7 10 1.5-8.5 10 [facility]: [address] [facility] Normal Lymph # 2.0 10 1.5-5.0 10 [facility]: [address] [facility] Normal [place] # 0.6 10 0.0-0.[address] [facility]: [address] [facility] Normal Eos # 0.1 10 0.0-0.5 10 [facility]: [address] [facility] Normal Baso # 0.1 10 0.0-0.[address] [facility]: 0 [facility] 10/16/2020 CMP, Serum or Plasma Normal Glucose, Fastin g 93 mg/dL 70-100 mg/dL [facility]: [address] 0 [facility] Normal Blood Urea Nitrogen 10 mg/dL 7-18 mg /dL [facility]: 0 [facility] Normal Creatinine for GFR 0.55 mg/dL 0.55-1 .30 mg/dL [facility]: 0 [facility] Normal Glomerular Filtration Rate > 60.0 >6 0 [facility]: [address] [facility] Normal Sodium Level 141 mEq/L 136-145 mEq/L [facility]: [address] [place] [address] Normal Potassium Serum 3.7 mEq/L 3.5-5.1 mE q/L [facility]: 0 [facility] High Chloride Level 109 mEq/L 98-107 mEq/ L [facility]: 0 [facility] Normal Carbon Dioxide Level 26 mEq/L 21-32 mEq/L [facility]: [address] [place] [address] Low Anion Gap 6 mEq/L 8-16 mEq/L [facility]: [address] [place] [address] Normal Calcium Level 9.1 mg/dL 8.5-10.1 mg/ dL [facility]: 0 [facility] Normal AST/SGOT 15 U/L 7-37 U/L [facility]: 0 [facility] Normal ALT/SGPT 21 U/L 12-78 U/L [facility]: 0 [facility] Normal Alkaline Phosphatase 66 U/L 45-117 U /L [facility]: 0 [facility] Normal Bilirubin,total 0.3 mg/dL 0.2-1.0 mg /dL [facility]: 0 [facility] Normal Total Protein 7.1 gm/dL 6.4-8.2 gm/d L [facility]: 0 [facility] Normal Albumin 3.9 gm/dL 3.2-5.2 gm/dL [facility]: 0 [facility] Normal Albumin/globulin Ratio 1.2 1.2-2. 2 [facility]: [address] [place] [address] 10/16/2020 TIBC (Total Iron-binding Capacity), Serum Low Iron (Fe) 12 ug/dL 50-170 ug/dL [facility] nter: [address] [place] [address] Normal Total Iron Binding Capacity 349 ug/d L 250-450 ug/dL [facility]: [address] [place] [address] Low Percent Saturation 3.4 % 13.2-45.0 % [facility]: [address] [place] [address] 10/16/2020 Vitamin B12 + Folate, Serum or Blood Normal Vitamin B12 Level 689 pg/mL [facility] nter: 0 [facility] Normal Folate 9.9 NG/mL [facility]: [address] [place] [address] 10/16/2020 Ferritin, Serum or Plasma Low Ferritin < 3 NG/mL 8-252 NG/mL [facility]: [address] [place] [address] 08/30/2020 Cbc Normal White Blood Count 5.0 10 4.0-10. 0 10 [facility]: [address] [place] [address] Normal Red Blood Count 4.17 10 4.00-5.40 10 [facility]: [address] [place] [address] Low Hemoglobin 9.9 g/dL 12.0-15.5 g/dL F inal [facility]: [address] [place] [address] Low Hematocrit 33.8 % 36.0-47.0 % [facility]: [address] [place] [address] Normal Mean Corpuscular Volume 81.1 fL 80.0 -96.0 fL [facility]: [address] [place] [address] Low Mean Corpuscular Hemoglobin 23.7 pg 27.0-33.0 pg [facility]: [address] [place] [address] Low Mean Corpuscular HGB Conc 29.3 g/dL 32.0-36.5 g/dL [facility]: [address] [place] [address] High Red Cell Distribution Width 15.9 % 1 1.5-14.5 % [facility]: [address] [place] [address] Normal Platelet Count, Automated 359 10 150 -450 10 [facility]: [address] [place] [address] Normal Nucleated Red Blood Cell % 0.0 % 0- 0 % [facility] Center: [address] [facility] 08/30/2020 CMP, Serum or Plasma Normal Glucose, Fastin g 91 mg/dL 70-100 mg/dL [facility]: 83 0 [facility] Low Blood Urea Nitrogen 5 mg/dL 7-18 mg/ dL [facility]: [address] [facility] Normal Creatinine for GFR 0.60 mg/dL 0.55-1 .30 mg/dL [facility]: [address] [facility] Normal Glomerular Filtration Rate > 60.0 >6 0 [facility]: [address] [facility] Normal Sodium Level 140 mEq/L 136-145 mEq/L [facility]: [address] [facility] Normal Potassium Serum 3.6 mEq/L 3.5-5.1 mE q/L [facility]: [address] [facility] Normal Chloride Level 107 mEq/L 98-107 mEq/ L [facility]: [address] [facility] Normal Carbon Dioxide Level 25 mEq/L 21-32 mEq/L [facility]: [address] [facility] Normal Anion Gap 8 mEq/L 8-16 mEq/L [facility]: [address] [facility] Normal Calcium Level 8.5 mg/dL 8.5-10.1 mg/ dL [facility]: [address] [facility] Normal AST/SGOT 17 U/L 7-37 U/L [facility]: [address] [facility] Normal ALT/SGPT 22 U/L 12-78 U/L [facility]: [address] [facility] Normal Alkaline Phosphatase 70 U/L 45-117 U /L [facility]: [address] [facility] D Bilirubin,total 0.6 mg/dL 0.2-1.0 mg /dL [facility]: [address] [facility] Normal Total Protein 6.8 gm/dL 6.4-8.2 gm/d L [facility]: [address] [facility] Normal Albumin 3.5 gm/dL 3.2-5.2 gm/dL Mary Grace l [facility]: [address] [facility] Low Albumin/globulin Ratio 1.1 1.2-2. 2 [facility]: [address] [facility] 08/30/2020 Magnesium, Serum or Plasma Normal Magnesium Level 2.0 mg/dL 1.8-2.4 mg/dL Final [facility]: 83 0 [facility] 08/29/2020 Respiratory Virus Panel [id number] No observ ation recorded. [facility]: [address] [facility] 08/29/2020 SIRI (Antinuclear Antibodies) Screen, Serum Nor mal Antinuclear Antibodies Direct negative negative [facility]: [address] [facility] 08/29/2020 IgG Subclasses(1-4) Normal IgG Subclass 1 752 mg/dL 248-810 mg/dL [facility]: 83 0 [facility] Normal IgG Subclass 2 250 mg/dL 130-555 mg/ dL [facility]: [address] [facility] Normal IgG Subclass 3 81 mg/dL 15-102 mg/dL [facility]: [address] [facility] Normal IgG Subclass 4 28 mg/dL 2-96 mg/dL F inal [facility]: [address] [facility] Normal IgG Serum (Part of Subclasses) 1107 mg/dL 586-1602 mg/dL [facility]: [address] [facility] 08/27/2020 CMP, Serum or Plasma Blood venous No observa tion recorded. [facility] (Lab): [address] [facility] 08/27/2020 Lipase, Serum or Plasma Blood venous No obse rvation recorded. 08/27/2020 Amylase, Serum or Plasma Blood venous No observation recorded. 08/27/2020 Cancer Ag 19-9, Serum or Plasma Blood venous No observation recorded. 08/27/2020 Carcinoembryonic Ag, Quant, Serum or Plasma Blood venous No observation recorded. [facility] (Lab): [address] [facility] 08/27/2020 CMP, Serum or Plasma Normal Glucose, Fastin g 70 mg/dL 70-100 mg/dL [facility]: 83 0 [facility] Low Blood Urea Nitrogen 6 mg/dL 7-18 mg/ dL [facility]: [address] [facility] Normal Creatinine for GFR 0.63 mg/dL 0.55-1 .30 mg/dL [facility]: [address] [facility] Normal Glomerular Filtration Rate > 60.0 >6 0 [facility]: [address] [facility] Normal Sodium Level 140 mEq/L 136-145 mEq/L [facility]: [address] [facility] Normal Potassium Serum 4.5 mEq/L 3.5-5.1 mE q/L [facility]: [address] [facility] Normal Chloride Level 106 mEq/L 98-107 mEq/ L [facility]: [address] [facility] Normal Carbon Dioxide Level 28 mEq/L 21-32 mEq/L [facility]: [address] [facility] Low Anion Gap 6 mEq/L 8-16 mEq/L [facility]: [address] [facility] Normal Calcium Level 9.5 mg/dL 8.5-10.1 mg/ dL [facility]: [address] [facility] Normal AST/SGOT 14 U/L 7-37 U/L [facility]: [address] [facility] Normal ALT/SGPT 21 U/L 12-78 U/L [facility]: [address] [facility] Normal Alkaline Phosphatase 82 U/L 45-117 U /L [facility]: 0 [facility] Normal Bilirubin,total 0.4 mg/dL 0.2-1.0 mg /dL [facility]: [address] [facility] Normal Total Protein 7.9 gm/dL 6.4-8.2 gm/d L [facility]: [address] [facility] Normal Albumin 4.1 gm/dL 3.2-5.2 gm/dL Mary Grace l [facility]: [address] [facility] Low Albumin/globulin Ratio 1.1 1.2-2. 2 [facility]: [address] [facility] 08/27/2020 Ca19-9 Tumor Marker,carbohydra Normal Ca19-9 Tumor Marker,carbohydra 10.8 U/mL <35.0 U/mL [facility]: [address] [facility] 08/27/2020 Amylase, Serum or Plasma Normal Amylase 52 U/L 25-115 U/L [facility]: 0 [facility] 08/27/2020 Lipase, Serum or Plasma Low Lipase 59 U/L 7 3-393 U/L [facility]: 0 [facility] 08/27/2020 Carcinoembryonic Ag, Quant, Serum or Plasma Nor mal Carcinoembryonic Antigen < 0.5 NG/mL <2.5 NG/mL [facility]: [address] [facility] 08/21/2020 UA W/ Reflex to Culture Normal Appearance, Urine Rfx clear clear [facility]: 83 0 [facility] Normal Color, Urine Rfx yellow yellow [facility]: [address] [facility] Normal pH,urine Rfx 5.0 units 5.0-9.0 units [facility]: [address] [facility] Normal Specific [place] Ur Auto Rfx 1.021 1.002-1.035 [facility]: [address] [facility] Normal Protein, Urine Auto Rfx negative mg/ dL negative mg/dL [facility]: [address] [facility] Normal Glucose, Urine (UA) Auto Rfx n egative mg/dL negative mg/dL [facility]: [address] [facility] Normal Ketone, Urine Auto Rfx negative mg/d L negative mg/dL [facility]: [address] [facility] Normal Urobilinogen, Urine Auto Rfx 0.2 mg/ dL 0.0-2.0 mg/dL [facility]: [address] [facility] Normal Bilirubin, Urine Auto Rfx negative n egative [facility]: [address] [facility] Normal Nitrite, Urine Auto Rfx negative neg ative [facility]: [address] [facility] Normal Leukocyte Esterase Ur Auto Rfx negat ambrocio negative [facility]: [address] [facility] Normal Blood, Urine Blood Rfx negative nega tive [facility]: [address] [facility] Normal WBC, Urine Auto Rfx 1 /hpf 0-3 /hpf [facility]: [address] [facility] Normal RBC, Urine Auto Rfx 1 /hpf 0-3 /hpf [facility]: [address] [facility] Normal Bacteria, Urine Auto Rfx negative ne gative [facility]: [address] [facility] Normal Squam Epithelial Cell Ur Aurfx 1 /hp f 0-6 /hpf [facility]: [address] [facility] Normal Mucus, Urine Rfx small negative Fin [facility]: [address] [facility] Normal Hyaline Cast, Urine Auto Rfx 0 /lpf 0-1 /lpf [facility]: [address] [facility] 08/21/2020 CBC W/ Auto Diff Normal White Blood Count 7.9 10 4.0-10.0 10 [facility]: [address] [facility] Normal Red Blood Count 4.48 10 4.00-5.40 10 [facility]: [address] [facility] Low Hemoglobin 11.0 g/dL 12.0-15.5 g/dL [facility]: 0 [facility] Low Hematocrit 35.8 % 36.0-47.0 % [facility]: 0 [facility] Low Mean Corpuscular Volume 79.9 fL 80.0 -96.0 fL [facility]: [address] [facility] Low Mean Corpuscular Hemoglobin 24.6 pg 27.0-33.0 pg [facility]: [address] [facility] Low Mean Corpuscular HGB Conc 30.7 g/dL 32.0-36.5 g/dL Final [facility]: [address] [facility] High Red Cell Distribution Width 16.2 % 1 1.5-14.5 % [facility]: [address] [facility] Normal Platelet Count, Automated 436 10 150 -450 10 [facility]: [address] [facility] High Neutrophils % 67.7 % 36.0-66.0 % [facility]: [address] [facility] Low Lymph % 22.0 % 24.0-44.0 % [facility]: [address] [facility] High [place] % 6.7 % 0.0-5.0 % Final [facility]: [address] [facility] Normal Eos % 1.8 % 0.0-3.0 % [facility]: [address] [facility] High Baso % 1.3 % 0.0-1.0 % [facility]: [address] [facility] Normal Immature Granulocyte % 0.5 % 0-3.0 % [facility]: [address] [facility] Normal Nucleated Red Blood Cell % 0.0 % 0- 0 % [facility]: [address] [facility] Normal Neutrophils # 5.3 10 1.5-8.5 10 [facility]: [address] [facility] Normal Lymph # 1.7 10 1.5-5.0 10 Final [facility]: [address] [facility] Normal [place] # 0.5 10 0.0-0.[address] [facility]: [address] [facility] Normal Eos # 0.1 10 0.0-0.5 10 Final [facility]: [address] [facility] Normal Baso # 0.1 10 0.0-0.[address] [facility]: [address] [facility] 08/21/2020 Hepatic Function Panel, Serum Normal AST/SG OT 17 U/L 7-37 U/L [facility]: 0 [facility] Normal ALT/SGPT 25 U/L 12-78 U/L [facility]: 0 [facility] Normal Alkaline Phosphatase 80 U/L 45-117 U /L [facility]: 0 [facility] Normal Bilirubin,total 0.3 mg/dL 0.2-1.0 mg /dL [facility]: [address] [place] [address] Normal Bilirubin,direct < 0.1 mg/dL 0.0-0.2 mg/dL [facility]: [address] [place] [address] Normal Total Protein 8.0 gm/dL 6.4-8.2 gm/d L [facility]: 0 [facility] Normal Albumin 4.0 gm/dL 3.2-5.2 gm/dL Mary Grace l [facility]: [address] [place] [address] Low Albumin/globulin Ratio 1.0 1.2-2. 2 [facility]: 0 [facility] 08/21/2020 BMP, Serum or Plasma Normal Glucose, Fastin g 91 mg/dL 70-100 mg/dL [facility]: 83 0 [facility] Normal Blood Urea Nitrogen 9 mg/dL 7-18 mg/ dL [facility]: 0 [facility] Normal Creatinine for GFR 0.64 mg/dL 0.55-1 .30 mg/dL [facility]: 0 [facility] Normal Glomerular Filtration Rate > 60.0 >6 0 [facility]: 0 [facility] Normal Sodium Level 139 mEq/L 136-145 mEq/L [facility]: [address] [place] [address] Normal Potassium Serum 3.7 mEq/L 3.5-5.1 mE q/L [facility]: [address] [place] [address] High Chloride Level 108 mEq/L 98-107 mEq/ L Final [facility]: [address] [facility] Normal Carbon Dioxide Level 23 mEq/L 21-32 mEq/L Final [facility]: [address] [facility] Normal Anion Gap 8 mEq/L 8-16 mEq/L Final [facility]: [address] [facility] Normal Calcium Level 8.5 mg/dL 8.5-10.1 mg/ dL Final [facility]: [address] [facility] 08/21/2020 Lipase, Serum or Plasma High Lipase 877 U/L 73-393 U/L Final [facility]: [address] [place] [address] 08/05/2020 SARS CoV 2 RdRp Gene, QL Probe, Respiratory Spec imen Nasopharyngeal Normal Sars-cov-2 negative negative Final [facility] Medical: [address] [place] [address] 05/03/2020 Culture, Urine URINE,CLEAN CATCH No observation recorded. [facility]: [address] [facility] Past Encounters 03/27/2021 Adult Health Examination; Allergic Rhinitis; Gastroesophageal Reflux Disease without Esophagitis; Uncomplicated Mild Persistent Asthma; Chronic Thyroiditis; Anemia Filiberto Estevez, [facility]: [address] [facility] [address] [address], Ph. 03/21/2021 Chronic Thyroiditis Filiberto Estevez, [facility]-C: [address] [facility] [address], [place] [address], Ph. 03/20/2021 Chronic Thyroiditis Filiberto Estevez, [facility]-C: [address] [facility] [address], [place] [address], Ph. 02/03/2021 Painful Rectal Bleeding; Acute Upper Respiratory Infection; Urine Looks Dark Filiberto Estevez, [facility]-C: [address] [facility] [address], [place] [address], Ph. 01/17/2021 Anemia; Gastroesophageal Reflux Disease without Esophagitis; Uncomplicated Mild Persistent Asthma; Chronic Thyroiditis; Immunization Advised Filiberto Estevez RPA-C: [address] [facility], [facility] [address], [place] [address], Ph. 08/27/2020 High Lipase Level in Serum Aracelis Araujo MD: [address] [facility] [address], [place] [address], Ph. 08/05/2020 Exposure to SARS-CoV-2 Gregg Lucio MD: [address] [place] [address], Ph. 05/03/2020 Anemia; Iron Deficiency; Suprapubic Pain; Diffuse Goiter; Uncomplicated Mild Persistent Asthma Filiberto Estevez R[facility]-C: [address] [facility] [address], [place] [address], Ph. Social History Tobacco Smoking Status Light Tobacco Smoker (1 pack per week ) Vaccine List Vaccine Type influenza, seasonal, injectable [...] Surgeries None recorded. Imaging None recorded. Vitals 03/27/2021 08:50AM ANNUAL EXAM Height Weight BMI Blood Pressure 65 in 130 lbs 21.6 kg/m2 108/72 mm[Hg] 02/03/2021 03:10PM SAME DAY 20 Height Weight BMI Blood Pressure 65 in 131 lbs 16 oz 22 kg/m2 109/75 mm[Hg] 01/17/2021 08:50AM ESTABLISHED [id number] Height Weight BMI Blood Pressure 65 in 130 lbs 16 oz 21.8 kg/m2 108/72 mm[Hg] 08/27/2020 10:00AM ESTABLISHED [id number] Height Weight BMI Blood Pressure 65 in 147 lbs 24.5 kg/m2 124/77 mm[Hg] 05/03/2020 10:10AM ESTABLISHED [id number] Height Weight BMI Blood Pressure 65 in 156 lbs 16 oz 26.1 kg/m2 117/85 mm[Hg] 02/23/2020 Height Weight BMI Blood Pressure 65 in 154 lbs 6.08 oz 25.78 kg/m2 119/78 mm[H g] 01/18/2020 Height Weight BMI Blood Pressure 65 in 157 lbs 6.08 oz 26.28 kg/m2 129/78 mm[H g]
--- OUTSIDE RECORDS SUMMARY | 2021-05-21 12:19 | CCD ---
Author Organization Unknown Address [address] [place] [address] Phone [phone] Care Team Providers Care Button Tacker Name Role Phone Filiberto Estevez Unavailable Unavailable [...] TWO TIMES A DAY FOR 10 DAYS Active Not available Arnuity Ellipta 100 mcg/actuation powder for inhalation INHALE ONE PUFF BY MOUTH EVERY DAY Active Not available azithromycin 250 mg tablet Completed 05/03 benzonatate 200 mg capsule TAKE ONE TABLET BY MOUTH EVERY 8 HOURS NEEDED FOR COUGH Active Not available cefdinir 300 mg capsule Completed 05/03/20 cephalexin [...] 05/03/20 20 prednisone 20 mg tablet TAKE TWO TABLETS BY MOUTH EVERY DAY Active Not available sucralfate 1 gram tablet TAKE ONE TABLET [...] Result Interpretation Description Value Range Status Address 02/03/2021 SARS CoV 2 RdRp Gene, QL Probe, Respiratory Specimen Normal Sars-cov-2 negative negative Final [facility]: [address], [place] 02/03/2021 Urinalysis, Dipstick, Auto Normal Bilirubin ne g Final [facility]: [address], [place] Normal Blood neg Final [facility] Medic al: [address], [place] Normal Glucose neg Final [facility] Med ical: [address], [place] Normal Ketone neg Final [facility]i [place]: [address], [place] Normal Leukocytes neg Final [facility] Medical: [address], [place] Normal Nitrite neg Final [facility] Med ical: [address], [place] Normal Ph 7.0 Final [facility] Medica l: [address], [place] Normal Protein neg Final [facility] Med ical: [address], [place] Normal Specific [place] 1.010 Final [facility] Medical: [address], [place] Normal Urobilinogen 0.2 Final [facility]: [address], [place] 01/29/2021 CBC W/ Auto Diff Normal White Blood Count 9.1 10 4.0-10.0 10 Final [facility]: [address] [facility] Normal Red Blood Count 4.44 10 4.00-5.40 10 Final [facility]: [address] [facility] Normal Hemoglobin 12.6 g/dL 12.0-15.5 g/dL Final [facility]: [address] [facility] Normal Hematocrit 38.1 % 36.0-47.0 % [facility]: [address] [facility] Normal Mean Corpuscular Volume 85.8 fL 80.0 -96.0 fL Final [facility]: [address] [facility] Normal Mean Corpuscular Hemoglobin 28.4 pg 27.0-33.0 pg Final [facility]: [address] [facility] Normal Mean Corpuscular HGB Conc 33.1 g/dL 32.0-36.5 g/dL Final [facility]: [address] [facility] Normal Red Cell Distribution Width 14.0 % 1 1.5-14.5 % Final [facility]: [address] [facility] Normal Platelet Count, Automated 357 10 150 -450 10 [facility]: [address] [facility] High Neutrophils % 70.1 % 36.0-66.0 % [facility]: [address] [facility] Low Lymph % 22.8 % 24.0-44.0 % Final [facility]: [address] [facility] Normal [place] % 5.0 % 2.0-8.0 % Final [facility]: 0 [facility] Normal Eos % 1.0 % 0.0-3.0 % [facility]: [address] [facility] Normal Baso % 0.7 % 0.0-1.0 % Final [facility]: [address] [facility] Normal Immature Granulocyte % 0.4 % 0-3.0 % [facility]: [address] [facility] Normal Nucleated Red Blood Cell % 0.0 % 0- 0 % [facility]: [address] [facility] Normal Neutrophils # 6.4 10 1.5-8.5 10 [facility]: [address] [facility] Normal Lymph # 2.1 10 1.5-5.0 10 Final [facility]: [address] [facility] Normal [place] # 0.5 10 0.0-0.8 10 [facility]: [address] [facility] Normal Eos # 0.1 10 0.0-0.5 10 [facility]: 0 [facility] Normal Baso # 0.1 10 0.0-0.2 10 [facility]: 0 [facility] 01/29/2021 Reticulocyte Panel, Blood Normal Reticulocy te % 0.9 % 0.5-1.5 % [facility]: [address] [facility] Normal Reticulocyte # 40.0 10 17-77 10 [facility]: [address] [facility] Normal Retic Hemoglobin Equivalent 33.3 pg 24-36 pg [facility]: [address] [facility] 01/29/2021 CMP, Serum or Plasma High Glucose, Fastin g 101 mg/dL 70-100 mg/dL [facility]: [address] [facility] Normal Blood Urea Nitrogen 7 mg/dL 7-18 mg/ dL [facility]: [address] [facility] Normal Creatinine for GFR 0.66 mg/dL 0.55-1 .30 mg/dL [facility]: [address] [facility] Normal Glomerular Filtration Rate > 60.0 >6 0 [facility]: [address] [facility] Normal Sodium Level 138 mEq/L 136-145 mEq/L [facility]: [address] [facility] Normal Potassium Serum 3.5 mEq/L 3.5-5.1 mE q/L [facility]: [address] [facility] Normal Chloride Level 107 mEq/L 98-107 mEq/ L [facility]: [address] [facility] Normal Carbon Dioxide Level 26 mEq/L 21-32 mEq/L [facility]: [address] [facility] Low Anion Gap 5 mEq/L 8-16 mEq/L [facility]: [address] [facility] Low Calcium Level 8.4 mg/dL 8.5-10.1 mg/ dL [facility]: [address] [facility] Normal AST/SGOT 15 U/L 7-37 U/L [facility]: [address] [facility] Normal ALT/SGPT 31 U/L 12-78 U/L [facility]: [address] [facility] Normal Alkaline Phosphatase 65 U/L 45-117 U /L [facility]: [address] [facility] Normal Bilirubin,total 0.3 mg/dL 0.2-1.0 mg /dL [facility]: [address] [facility] Normal Total Protein 7.7 gm/dL 6.4-8.2 gm/d L [facility]: 0 [facility] Normal Albumin 4.0 gm/dL 3.2-5.2 gm/dL [facility]: [address] [place] [address] Low Albumin/globulin Ratio 1.1 1.2-2. 2 [facility]: [address] [facility] 01/29/2021 TIBC (Total Iron-binding Capacity), Serum Low Iron (Fe) 41 ug/dL 50-170 ug/dL [facility] Ce nter: [address] [place] [address] Normal Total Iron Binding Capacity 267 ug/d L 250-450 ug/dL [facility]: [address] [place] [address] Normal Percent Saturation 15.4 % 13.2-45.0 % [facility]: [address] [facility] 01/29/2021 Ferritin, Serum or Plasma Normal Ferritin 64 NG/mL 8-252 NG/mL [facility]: [address] [place] [address] 01/29/2021 Vitamin B12, Serum Normal Vitamin B12 Level 768 pg/mL 247-911 pg/mL [facility]: [address] [facility] 01/29/2021 Folate, Serum Normal Folate 18.0 NG/mL >5.4 NG /mL [facility]: [address] [place] [address] 01/29/2021 Tissue Transglutaminase IgA Normal Tissue Transglutaminase IgA <2 U/mL 0-3 U/mL [facility] nter: 0 [facility] 12/16/2020 CBC W/ Auto Diff Normal White Blood Count 9.4 10 4.0-10.0 10 [facility]: 0 [facility] Normal Red Blood Count 4.56 10 4.00-5.40 10 [facility]: 0 [facility] Normal Hemoglobin 12.3 g/dL 12.0-15.5 g/dL [facility]: [address] [facility] Normal Hematocrit 38.2 % 36.0-47.0 % [facility]: [address] [facility] Normal Mean Corpuscular Volume 83.8 fL 80.0 -96.0 fL [facility]: [address] [facility] Normal Mean Corpuscular Hemoglobin 27.0 pg 27.0-33.0 pg [facility]: [address] [facility] Normal Mean Corpuscular HGB Conc 32.2 g/dL 32.0-36.5 g/dL Final [facility]: [address] [facility] High Red Cell Distribution Width 20.4 % 1 1.5-14.5 % [facility]: 0 [facility] Normal Platelet Count, Automated 343 10 150 -450 10 [facility]: [address] [facility] Normal Neutrophils % 63.1 % 36.0-66.0 % [facility]: [address] [facility] Normal Lymph % 29.3 % 24.0-44.0 % [facility]: [address] [facility] Normal [place] % 5.1 % 2.0-8.0 % [facility]: [address] [facility] Normal Eos % 1.5 % 0.0-3.0 % [facility]: [address] [facility] Normal Baso % 0.7 % 0.0-1.0 % [facility]: [address] [facility] Normal Immature Granulocyte % 0.3 % 0-3.0 % [facility]: [address] [facility] Normal Nucleated Red Blood Cell % 0.0 % 0- 0 % [facility]: [address] [facility] Normal Neutrophils # 5.9 10 1.5-8.5 10 [facility]: [address] [facility] Normal Lymph # 2.8 10 1.5-5.0 10 [facility]: [address] [facility] Normal [place] # 0.5 10 0.0-0.8 10 [facility]: [address] [facility] Normal Eos # 0.1 10 0.0-0.5 10 [facility]: [address] [facility] Normal Baso # 0.1 10 0.0-0.2 10 [facility]: [address] [facility] 12/16/2020 CMP, Serum or Plasma High Glucose, Fastin g 114 mg/dL 70-100 mg/dL [facility]: [address] [facility] Low Blood Urea Nitrogen 6 mg/dL 7-18 mg/ dL [facility]: 0 [facility] Normal Creatinine for GFR 0.59 mg/dL 0.55-1 .30 mg/dL [facility]: 0 [facility] Normal Glomerular Filtration Rate > 60.0 >6 0 [facility]: [address] [facility] Normal Sodium Level 139 mEq/L 136-145 mEq/L [facility]: [address] [facility] Normal Potassium Serum 3.5 mEq/L 3.5-5.1 mE q/L [facility]: [address] [facility] Normal Chloride Level 107 mEq/L 98-107 mEq/ L [facility]: [address] [facility] Normal Carbon Dioxide Level 27 mEq/L 21-32 mEq/L [facility]: [address] [facility] Low Anion Gap 5 mEq/L 8-16 mEq/L [facility]: [address] [facility] Normal Calcium Level 8.7 mg/dL 8.5-10.1 mg/ dL [facility]: [address] [facility] Normal AST/SGOT 13 U/L 7-37 U/L [facility]: [address] [facility] Normal ALT/SGPT 23 U/L 12-78 U/L [facility]: [address] [facility] Normal Alkaline Phosphatase 63 U/L 45-117 U /L [facility]: [address] [facility] Normal Bilirubin,total 0.3 mg/dL 0.2-1.0 mg /dL [facility]: [address] [facility] Normal Total Protein 7.4 gm/dL 6.4-8.2 gm/d L [facility]: [address] [facility] Normal Albumin 3.9 gm/dL 3.2-5.2 gm/dL [facility]: [address] [facility] Low Albumin/globulin Ratio 1.1 1.2-2. 2 [facility]: [address] [facility] 12/16/2020 TIBC (Total Iron-binding Capacity), Serum Low Iron (Fe) 36 ug/dL 50-170 ug/dL [facility] nter: 0 [facility] Low Total Iron Binding Capacity 239 ug/d L 250-450 ug/dL [facility]: 0 [facility] Normal Percent Saturation 15.1 % 13.2-45.0 % [facility]: [address] [facility] 12/16/2020 Ferritin, Serum or Plasma Normal Ferritin 86 NG/mL 8-252 NG/mL [facility]: 0 [facility] 10/16/2020 Reticulocyte Panel, Blood Normal Reticulocy te % 1.4 % 0.5-1.5 % [facility]: [address] [facility] Normal Reticulocyte # 57.8 10 17-77 10 [facility]: [address] [facility] Low Retic Hemoglobin Equivalent 22.5 pg 24-36 pg [facility]: 0 [facility] 10/16/2020 CBC W/ Auto Diff Normal White Blood Count 9.5 10 4.0-10.0 10 [facility]: [address] [facility] Normal Red Blood Count 4.23 10 4.00-5.40 10 [facility]: 0 [facility] Low Hemoglobin 10.0 g/dL 12.0-15.5 g/dL [facility]: [address] [facility] Low Hematocrit 32.7 % 36.0-47.0 % [facility]: [address] [facility] Low Mean Corpuscular Volume 77.3 fL 80.0 -96.0 fL [facility]: [address] [place] [address] Low Mean Corpuscular Hemoglobin 23.6 pg 27.0-33.0 pg [facility]: [address] [facility] Low Mean Corpuscular HGB Conc 30.6 g/dL 32.0-36.5 g/dL [facility]: [address] [place] [address] High Red Cell Distribution Width 15.2 % 1 1.5-14.5 % [facility]: [address] [place] [address] Normal Platelet Count, Automated 352 10 150 -450 10 [facility]: 0 [facility] High Neutrophils % 71.4 % 36.0-66.0 % [facility]: [address] [facility] Low Lymph % 21.0 % 24.0-44.0 % [facility]: [address] [facility] Normal [place] % 5.9 % 2.0-8.0 % [facility]: 0 [facility] Normal Eos % 0.8 % 0.0-3.0 % [facility]: [address] [facility] Normal Baso % 0.5 % 0.0-1.0 % [facility]: [address] [facility] Normal Immature Granulocyte % 0.4 % 0-3.0 % [facility]: [address] [facility] Normal Nucleated Red Blood Cell % 0.0 % 0- 0 % [facility]: 0 [facility] Normal Neutrophils # 6.7 10 1.5-8.5 10 [facility]: [address] [facility] Normal Lymph # 2.0 10 1.5-5.0 10 [facility]: [address] [facility] Normal [place] # 0.6 10 0.0-0.8 10 [facility]: [address] [facility] Normal Eos # 0.1 10 0.0-0.5 10 [facility]: [address] [facility] Normal Baso # 0.1 10 0.0-0.2 10 [facility]: [address] [facility] 10/16/2020 CMP, Serum or Plasma Normal Glucose, Fastin g 93 mg/dL 70-100 mg/dL [facility]: [address] [facility] Normal Blood Urea Nitrogen 10 mg/dL 7-18 mg /dL [facility]: 0 [facility] Normal Creatinine for GFR 0.55 mg/dL 0.55-1 .30 mg/dL [facility]: 0 [facility] Normal Glomerular Filtration Rate > 60.0 >6 0 [facility]: [address] [facility] Normal Sodium Level 141 mEq/L 136-145 mEq/L [facility]: [address] [facility] Normal Potassium Serum 3.7 mEq/L 3.5-5.1 mE q/L [facility]: 0 [facility] High Chloride Level 109 mEq/L 98-107 mEq/ L [facility]: [address] [facility] Normal Carbon Dioxide Level 26 mEq/L 21-32 mEq/L [facility]: [address] [facility] Low Anion Gap 6 mEq/L 8-16 mEq/L [facility]: [address] [facility] Normal Calcium Level 9.1 mg/dL 8.5-10.1 mg/ dL [facility]: [address] [facility] Normal AST/SGOT 15 U/L 7-37 U/L [facility]: [address] [facility] Normal ALT/SGPT 21 U/L 12-78 U/L [facility]: [address] [facility] Normal Alkaline Phosphatase 66 U/L 45-117 U /L [facility]: 0 [facility] Normal Bilirubin,total 0.3 mg/dL 0.2-1.0 mg /dL [facility]: [address] [place] [address] Normal Total Protein 7.1 gm/dL 6.4-8.2 gm/d L [facility]: [address] [place] [address] Normal Albumin 3.9 gm/dL 3.2-5.2 gm/dL [facility] l [facility]: [address] [place] [address] Normal Albumin/globulin Ratio 1.2 1.2-2. 2 [facility]: [address] [place] [address] 10/16/2020 TIBC (Total Iron-binding Capacity), Serum Low Iron (Fe) 12 ug/dL 50-170 ug/dL [facility] nter: [address] [place] [address] Normal Total Iron Binding Capacity 349 ug/d L 250-450 ug/dL [facility]: [address] [place] [address] Low Percent Saturation 3.4 % 13.2-45.0 % [facility]: [address] [place] [address] 10/16/2020 Vitamin B12 + Folate, Serum or Blood Normal Vitamin B12 Level 689 pg/mL [facility] nter: [address] [place] [address] Normal Folate 9.9 NG/mL [facility]: [address] [place] [address] 10/16/2020 Ferritin, Serum or Plasma Low Ferritin < 3 NG/mL 8-252 NG/mL [facility]: [address] [place] [address] 08/30/2020 Cbc Normal White Blood Count 5.0 10 4.0-10. 0 10 [facility]: [address] [place] [address] Normal Red Blood Count 4.17 10 4.00-5.40 10 [facility]: [address] [place] [address] Low Hemoglobin 9.9 g/dL 12.0-15.5 g/dL F inal [facility]: [address] [place] [address] Low Hematocrit 33.8 % 36.0-47.0 % [facility]: [address] [facility] Normal Mean Corpuscular Volume 81.1 fL 80.0 -96.0 fL [facility]: [address] [facility] Low Mean Corpuscular Hemoglobin 23.7 pg 27.0-33.0 pg [facility]: [address] [facility] Low Mean Corpuscular HGB Conc 29.3 g/dL 32.0-36.5 g/dL [facility]: [address] [facility] High Red Cell Distribution Width 15.9 % 1 1.5-14.5 % [facility]: [address] [facility] Normal Platelet Count, Automated 359 10 150 -450 10 [facility]: 0 [facility] Normal Nucleated Red Blood Cell % 0.0 % 0- 0 % [facility]: [address] [facility] 08/30/2020 CMP, Serum or Plasma Normal Glucose, Fastin g 91 mg/dL 70-100 mg/dL [facility]: [address] [facility] Low Blood Urea Nitrogen 5 mg/dL 7-18 mg/ dL [facility]: 0 [facility] Normal Creatinine for GFR 0.60 mg/dL 0.55-1 .30 mg/dL [facility]: 0 [facility] Normal Glomerular Filtration Rate > 60.0 >6 0 [facility]: [address] [facility] Normal Sodium Level 140 mEq/L 136-145 mEq/L [facility]: [address] [facility] Normal Potassium Serum 3.6 mEq/L 3.5-5.1 mE q/L [facility]: [address] [facility] Normal Chloride Level 107 mEq/L 98-107 mEq/ L [facility]: 0 [facility] Normal Carbon Dioxide Level 25 mEq/L 21-32 mEq/L [facility]: [address] [facility] Normal Anion Gap 8 mEq/L 8-16 mEq/L [facility]: [address] [facility] Normal Calcium Level 8.5 mg/dL 8.5-10.1 mg/ dL [facility]: [address] [facility] Normal AST/SGOT 17 U/L 7-37 U/L [facility]: [address] [facility] Normal ALT/SGPT 22 U/L 12-78 U/L [facility]: [address] [facility] Normal Alkaline Phosphatase 70 U/L 45-117 U /L [facility]: [address] [facility] D Bilirubin,total 0.6 mg/dL 0.2-1.0 mg /dL [facility]: [address] [facility] Normal Total Protein 6.8 gm/dL 6.4-8.2 gm/d L [facility]: [address] [facility] Normal Albumin 3.5 gm/dL 3.2-5.2 gm/dL [facility] l [facility]: [address] [facility] Low Albumin/globulin Ratio 1.1 1.2-2. 2 [facility]: [address] [facility] 08/30/2020 Magnesium, Serum or Plasma Normal Magnesium Level 2.0 mg/dL 1.8-2.4 mg/dL [facility]: [address] [facility] 08/29/2020 Respiratory Virus Panel NASOPHARYNX No observ ation recorded. [facility]: [address] [facility] 08/29/2020 SIRI (Antinuclear Antibodies) Screen, Serum Nor mal Antinuclear Antibodies Direct negative negative [facility]: [address] [facility] 08/29/2020 IgG Subclasses(1-4) Normal IgG Subclass 1 752 mg/dL 248-810 mg/dL [facility]: [address] [facility] Normal IgG Subclass 2 250 mg/dL 130-555 mg/ dL [facility]: [address] [facility] Normal IgG Subclass 3 81 mg/dL 15-102 mg/dL [facility]: [address] [facility] Normal IgG Subclass 4 28 mg/dL 2-96 mg/dL F inal [facility]: [address] [facility] Normal IgG Serum (Part of Subclasses) 1107 mg/dL 586-1602 mg/dL Final [facility]: [address] [facility] 08/27/2020 CMP, Serum or Plasma Blood venous No observa tion recorded. [facility] (Lab): [address] [facility] 08/27/2020 Lipase, Serum or Plasma Blood venous No obse rvation recorded. 08/27/2020 Amylase, Serum or Plasma Blood venous No observation recorded. 08/27/2020 Cancer Ag 19-9, Serum or Plasma Blood venous No observation recorded. 08/27/2020 Carcinoembryonic Ag, Quant, Serum or Plasma Blood venous No observation recorded. [facility] (Lab): 0 [facility] 08/27/2020 CMP, Serum or Plasma Normal Glucose, Fastin g 70 mg/dL 70-100 mg/dL [facility]: [address] [facility] Low Blood Urea Nitrogen 6 mg/dL 7-18 mg/ dL [facility]: [address] [place] [address] Normal Creatinine for GFR 0.63 mg/dL 0.55-1 .30 mg/dL [facility]: 0 [facility] Normal Glomerular Filtration Rate > 60.0 >6 0 [facility]: 0 [facility] Normal Sodium Level 140 mEq/L 136-145 mEq/L [facility]: 0 [facility] Normal Potassium Serum 4.5 mEq/L 3.5-5.1 mE q/L [facility]: 0 [facility] Normal Chloride Level 106 mEq/L 98-107 mEq/ L [facility]: 0 [facility] Normal Carbon Dioxide Level 28 mEq/L 21-32 mEq/L [facility]: 0 [facility] Low Anion Gap 6 mEq/L 8-16 mEq/L [facility]: 0 [facility] Normal Calcium Level 9.5 mg/dL 8.5-10.1 mg/ dL [facility]: [address] [facility] Normal AST/SGOT 14 U/L 7-37 U/L [facility]: [address] [facility] Normal ALT/SGPT 21 U/L 12-78 U/L [facility]: [address] [facility] Normal Alkaline Phosphatase 82 U/L 45-117 U /L [facility]: [address] [facility] Normal Bilirubin,total 0.4 mg/dL 0.2-1.0 mg /dL [facility]: [address] [facility] Normal Total Protein 7.9 gm/dL 6.4-8.2 gm/d L [facility]: [address] [facility] Normal Albumin 4.1 gm/dL 3.2-5.2 gm/dL [facility]: [address] [facility] Low Albumin/globulin Ratio 1.1 1.2-2. 2 [facility]: [address] [facility] 08/27/2020 Ca19-9 Tumor Marker,carbohydra Normal Ca19-9 Tumor Marker,carbohydra 10.8 U/mL <35.0 U/mL [facility]: [address] [facility] 08/27/2020 Amylase, Serum or Plasma Normal Amylase 52 U/L 25-115 U/L [facility]: [address] [facility] 08/27/2020 Lipase, Serum or Plasma Low Lipase 59 U/L 7 3-393 U/L [facility]: [address] [facility] 08/27/2020 Carcinoembryonic Ag, Quant, Serum or Plasma Nor mal Carcinoembryonic Antigen < 0.5 NG/mL <2.5 NG/mL [facility]: [address] [facility] 08/21/2020 UA W/ Reflex to Culture Normal Appearance, Urine Rfx clear clear [facility]: [address] [facility] Normal Color, Urine Rfx yellow yellow [facility]: [address] [facility] Normal pH,urine Rfx 5.0 units 5.0-9.0 units [facility]: [address] [facility] Normal Specific [place] Ur Auto Rfx 1.021 1.002-1.035 [facility]: [address] [facility] Normal Protein, Urine Auto Rfx negative mg/ dL negative mg/dL [facility]: [address] [facility] Normal Glucose, Urine (UA) Auto Rfx n egative mg/dL negative mg/dL [facility]: [address] [facility] Normal Ketone, Urine Auto Rfx negative mg/d L negative mg/dL [facility]: [address] [facility] Normal Urobilinogen, Urine Auto Rfx 0.2 mg/ dL 0.0-2.0 mg/dL [facility]: [address] [facility] Normal Bilirubin, Urine Auto Rfx negative n egative [facility]: [address] [facility] Normal Nitrite, Urine Auto Rfx negative neg ative [facility]: [address] [facility] Normal Leukocyte Esterase Ur Auto Rfx negat ambrocio negative [facility]: [address] [facility] Normal Blood, Urine Blood Rfx negative nega tive [facility]: [address] [facility] Normal WBC, Urine Auto Rfx 1 /hpf 0-3 /hpf [facility]: [address] [facility] Normal RBC, Urine Auto Rfx 1 /hpf 0-3 /hpf [facility]: [address] [facility] Normal Bacteria, Urine Auto Rfx negative ne gative [facility]: [address] [facility] Normal Squam Epithelial Cell Ur Aurfx 1 /hp f 0-6 /hpf [facility]: [address] [facility] Normal Mucus, Urine Rfx small negative Fin [facility]: [address] [facility] Normal Hyaline Cast, Urine Auto Rfx 0 /lpf 0-1 /lpf [facility]: [address] [facility] 08/21/2020 CBC W/ Auto Diff Normal White Blood Count 7.9 10 4.0-10.0 10 [facility]: [address] [facility] Normal Red Blood Count 4.48 10 4.00-5.40 10 [facility]: [address] [facility] Low Hemoglobin 11.0 g/dL 12.0-15.5 g/dL Final [facility]: [address] [place] [address] Low Hematocrit 35.8 % 36.0-47.0 % [facility]: [address] [place] [address] Low Mean Corpuscular Volume 79.9 fL 80.0 -96.0 fL [facility]: [address] [place] [address] Low Mean Corpuscular Hemoglobin 24.6 pg 27.0-33.0 pg [facility]: [address] [place] [address] Low Mean Corpuscular HGB Conc 30.7 g/dL 32.0-36.5 g/dL [facility]: [address] [place] [address] High Red Cell Distribution Width 16.2 % 1 1.5-14.5 % [facility] [facility]: [address] [place] [address] Normal Platelet Count, Automated 436 10 150 -450 10 [facility]: [address] [facility] High Neutrophils % 67.7 % 36.0-66.0 % Fin [facility]: [address] [facility] Low Lymph % 22.0 % 24.0-44.0 % [facility]: [address] [facility] High [place]rie % 6.7 % 0.0-5.0 % Final [facility]: [address] [facility] Normal Eos % 1.8 % 0.0-3.0 % [facility]: [address] [facility] High Baso % 1.3 % 0.0-1.0 % [facility]: [address] [facility] Normal Immature Granulocyte % 0.5 % 0-3.0 % [facility]: [address] [facility] Normal Nucleated Red Blood Cell % 0.0 % 0- 0 % [facility]: [address] [facility] Normal Neutrophils # 5.3 10 1.5-8.5 10 [facility]: [address] [facility] Normal Lymph # 1.7 10 1.5-5.0 10 [facility]: [address] [facility] Normal G[place]rie # 0.5 10 0.0-0.8 10 [facility]: [address] [facility] Normal Eos # 0.1 10 0.0-0.5 10 [facility]: [address] [facility] Normal Baso # 0.1 10 0.0-0.2 10 [facility]: [address] [facility] 08/21/2020 Hepatic Function Panel, Serum Normal AST/SG OT 17 U/L 7-37 U/L [facility]: 0 [facility] Normal ALT/SGPT 25 U/L 12-78 U/L [facility]: [address] [facility] Normal Alkaline Phosphatase 80 U/L 45-117 U /L [facility]: 0 [facility] Normal Bilirubin,total 0.3 mg/dL 0.2-1.0 mg /dL [facility]: 0 [facility] Normal Bilirubin,direct < 0.1 mg/dL 0.0-0.2 mg/dL [facility]: 0 [facility] Normal Total Protein 8.0 gm/dL 6.4-8.2 gm/d L [facility]: 0 [facility] Normal Albumin 4.0 gm/dL 3.2-5.2 gm/dL [facility]: 0 [facility] Low Albumin/globulin Ratio 1.0 1.2-2. 2 [facility]: [address] [place] [address] 08/21/2020 BMP, Serum or Plasma Normal Glucose, Fastin g 91 mg/dL 70-100 mg/dL [facility]: 83 [address] [facility] Normal Blood Urea Nitrogen 9 mg/dL 7-18 mg/ dL [facility]: [address] [facility] Normal Creatinine for GFR 0.64 mg/dL 0.55-1 .30 mg/dL [facility]: [address] [facility] Normal Glomerular Filtration Rate > 60.0 >6 0 [facility]: [address] [facility] Normal Sodium Level 139 mEq/L 136-145 mEq/L [facility]: [address] [facility] Normal Potassium Serum 3.7 mEq/L 3.5-5.1 mE q/L [facility]: [address] [facility] High Chloride Level 108 mEq/L 98-107 mEq/ L [facility]: [address] [facility] Normal Carbon Dioxide Level 23 mEq/L 21-32 mEq/L [facility]: [address] [facility] Normal Anion Gap 8 mEq/L 8-16 mEq/L [facility]: [address] [facility] Normal Calcium Level 8.5 mg/dL 8.5-10.1 mg/ dL [facility]: [address] [facility] 08/21/2020 Lipase, Serum or Plasma High Lipase 877 U/L 73-393 U/L [facility]: 0 [facility] 08/05/2020 SARS CoV 2 RdRp Gene, QL Probe, Respiratory Spec imen Nasopharyngeal Normal Sars-cov-2 negative negative Final [facility]: [address] [facility] 05/03/2020 Culture, Urine URINE,CLEAN CATCH No observation recorded. [facility]: [address] [facility] Past Encounters 03/21/2021 Chronic Thyroiditis Filiberto Estevez RPA-C: [address] [facility] [address] [address], Ph. 03/20/2021 Chronic Thyroiditis Filiberto Estevez RPA-C: [address] [facility] [address], [place] [address], Ph. 02/03/2021 Painful Rectal Bleeding; Acute Upper Respiratory Infection; Urine Looks Dark Filiberto Estevez RPA-C: [address] [facility] [address], [place] [address], Ph. 01/17/2021 Anemia; Gastroesophageal Reflux Disease without Esophagitis; Uncomplicated Mild Persistent Asthma; Chronic Thyroiditis; Immunization Advised Filiberto Estevez RPA-C: [address] [facility] [address], [place] [address], Ph. 08/27/2020 High Lipase Level in Serum Aracelis Araujo MD: [address] [facility] [address], [place] [address], Ph. 08/05/2020 Exposure to SARS-CoV-2 Gregg Lucio MD: [address] [place] [address], Ph. 05/03/2020 Anemia; Iron Deficiency; Suprapubic Pain; Diffuse Goiter; Uncomplicated Mild Persistent Asthma Filiberto Estevez RPA-C: [address] [facility] [address] [place] [address], Ph. Social History Tobacco Smoking Status Light [...] Surgeries None recorded. Imaging None recorded. Vitals 02/03/2021 03:10PM SAME DAY 20 Height Weight BMI Blood Pressure 65 in 131 lbs 16 oz 22 kg/m2 109/75 mm[Hg] 01/17/2021 08:50AM ESTABLISHED [id number] Height Weight BMI Blood Pressure 65 in 130 lbs 16 oz 21.8 kg/m2 108/72 mm[Hg] 08/27/2020 10:00AM ESTABLISHED [id number] Height Weight BMI Blood Pressure 65 in 147 lbs 24.5 kg/m2 124/77 mm[Hg] 05/03/2020 10:10AM ESTABLISHED [id number] Height Weight BMI Blood Pressure 65 in 156 lbs 16 oz 26.1 kg/m2 117/85 mm[Hg] 02/23/2020 Height Weight BMI Blood Pressure 65 in 154 lbs 6.08 oz 25.78 kg/m2 119/78 mm[H g] 01/18/2020 Height Weight BMI Blood Pressure 65 in 157 lbs 6.08 oz 26.28 kg/m2 129/78 mm[H g]
--- OUTSIDE RECORDS SUMMARY | 2021-05-21 12:19 | CCD ---
Author Organization Unknown Address [address] [place] [address] Phone [phone] Care Team Providers Care Transcription Specialist Name Role Phone Filiberto Estevez Unavailable Unavailable [...] Respiratory Specimen Normal Sars-cov-2 negative negative Final [facility]: [address], [place] 02/03/2021 Urinalysis, Dipstick, Auto Normal Bilirubin ne g Final [facility]: [address], [place] Normal Blood neg Final [facility] al: [address], [place] Normal Glucose neg Final [facility] ical: [address], [place] Normal Ketone neg Final [facility]i [place]: [address], [place] Normal Leukocytes neg Final [facility]: [address], [place] Normal Nitrite neg Final [facility] ical: [address], [place] Normal Ph 7.0 Final [facility] Med[facility] l: [address], [place] Normal Protein neg Final [facility] ical: [address], [place] Normal Specific [place] 1.010 Final [facility]: [address], [place] Normal Urobilinogen 0.2 Final [facility]: [address], [place] 01/29/2021 CBC W/ Auto Diff Normal White Blood Count 9.1 10 4.0-10.0 10 Final [facility]: [address] [facility] Normal Red Blood Count 4.44 10 4.00-5.40 10 Final [facility]: [address] [facility] Normal Hemoglobin 12.6 g/dL 12.0-15.5 g/dL Final [facility]: [address] [facility] Normal Hematocrit 38.1 % 36.0-47.0 % Health System: [address] [facility] Normal Mean Corpuscular Volume 85.8 fL 80.0 -96.0 fL Final [facility]: [address] [facility] Normal Mean Corpuscular Hemoglobin 28.4 pg 27.0-33.0 pg Final [facility]: [address] [facility] Normal Mean Corpuscular HGB Conc 33.1 g/dL 32.0-36.5 g/dL Final [facility]: [address] [facility] Normal Red Cell Distribution Width 14.0 % 1 1.5-14.5 % Final [facility]: [address] [facility] Normal Platelet Count, Automated 357 10 150 -450 10 Health System: [address] [facility] High Neutrophils % 70.1 % 36.0-66.0 % [facility]: [address] [facility] Low Lymph % 22.8 % 24.0-44.0 % Final [facility]: [address] [facility] Normal [place] % 5.0 % 2.0-8.0 % Final [facility]: 0 [facility] Normal Eos % 1.0 % 0.0-3.0 % [facility]: [address] [facility] Normal Baso % 0.7 % 0.0-1.0 % Final [facility]: [address] [facility] Normal Immature Granulocyte % 0.4 % 0-3.0 % Health System: [address] [facility] Normal Nucleated Red Blood Cell % 0.0 % 0- 0 % [facility] System: [address] [facility] Normal Neutrophils # 6.4 10 1.5-8.5 10 [facility]: [address] [facility] Normal Lymph # 2.1 10 1.5-5.0 10 Final [facility]: [address] [facility] Normal [place] # 0.5 10 0.0-0.8 10 [facility]: [address] [facility] Normal Eos # 0.1 10 0.0-0.5 10 [facility]: 0 [facility] Normal Baso # 0.1 10 0.0-0.2 10 [facility]: 0 [facility] 01/29/2021 Reticulocyte Panel, Blood Normal Reticulocy te % 0.9 % 0.5-1.5 % Health System: 83 0 [facility] Normal Reticulocyte # 40.0 10 17-77 10 Mary Grace l [facility]: [address] [facility] Normal Retic Hemoglobin Equivalent 33.3 pg 24-36 pg [facility] System: [address] [facility] 01/29/2021 CMP, Serum or Plasma High Glucose, Fastin g 101 mg/dL 70-100 mg/dL Health System: 83 0 [facility] Normal Blood Urea Nitrogen 7 mg/dL 7-18 mg/ dL [facility] System: [address] [facility] Normal Creatinine for GFR 0.66 mg/dL 0.55-1 .30 mg/dL [facility] System: [address] [facility] Normal Glomerular Filtration Rate > 60.0 >6 0 [facility] System: [address] [facility] Normal Sodium Level 138 mEq/L 136-145 mEq/L [facility] System: [address] [facility] Normal Potassium Serum 3.5 mEq/L 3.5-5.1 mE q/L [facility] System: [address] [facility] Normal Chloride Level 107 mEq/L 98-107 mEq/ L [facility]: [address] [facility] Normal Carbon Dioxide Level 26 mEq/L 21-32 mEq/L [facility]: [address] [facility] Low Anion Gap 5 mEq/L 8-16 mEq/L [facility] System: [address] [facility] Low Calcium Level 8.4 mg/dL 8.5-10.1 mg/ dL [facility] System: [address] [facility] Normal AST/SGOT 15 U/L 7-37 U/L [facility]: [address] [facility] Normal ALT/SGPT 31 U/L 12-78 U/L [facility]: [address] [facility] Normal Alkaline Phosphatase 65 U/L 45-117 U /L [facility] System: [address] [facility] Normal Bilirubin,total 0.3 mg/dL 0.2-1.0 mg /dL [facility] System: [address] [facility] Normal Total Protein 7.7 gm/dL 6.4-8.2 gm/d L [facility] System: 0 [facility] Normal Albumin 4.0 gm/dL 3.2-5.2 gm/dL Mary Grace l [facility]: [address] [place] [address] Low Albumin/globulin Ratio 1.1 1.2-2. 2 [facility] System: [address] [facility] 01/29/2021 TIBC (Total Iron-binding Capacity), Serum Low Iron (Fe) 41 ug/dL 50-170 ug/dL [facility] Ce nter: [address] [place] [address] Normal Total Iron Binding Capacity 267 ug/d L 250-450 ug/dL Health System: [address] [place] [address] Normal Percent Saturation 15.4 % 13.2-45.0 % [facility] System: [address] [facility] 01/29/2021 Ferritin, Serum or Plasma Normal Ferritin 64 NG/mL 8-252 NG/mL Health System: [address] [place] [address] 01/29/2021 Vitamin B12, Serum Normal Vitamin B12 Level 768 pg/mL 247-911 pg/mL Health System: 83 0 [facility] 01/29/2021 Folate, Serum Normal Folate 18.0 NG/mL >5.4 NG /mL Health System: [address] [place] [address] 01/29/2021 Tissue Transglutaminase IgA Normal Tissue Transglutaminase IgA <2 U/mL 0-3 U/mL [facility] nter: 0 [facility] 12/16/2020 CBC W/ Auto Diff Normal White Blood Count 9.4 10 4.0-10.0 10 [facility] System: 0 [facility] Normal Red Blood Count 4.56 10 4.00-5.40 10 [facility]: 0 [facility] Normal Hemoglobin 12.3 g/dL 12.0-15.5 g/dL [facility] System: [address] [facility] Normal Hematocrit 38.2 % 36.0-47.0 % [facility]: [address] [facility] Normal Mean Corpuscular Volume 83.8 fL 80.0 -96.0 fL [facility]: [address] [facility] Normal Mean Corpuscular Hemoglobin 27.0 pg 27.0-33.0 pg [facility]: [address] [facility] Normal Mean Corpuscular HGB Conc 32.2 g/dL 32.0-36.5 g/dL Final [facility]: [address] [facility] High Red Cell Distribution Width 20.4 % 1 1.5-14.5 % [facility] System: 0 [facility] Normal Platelet Count, Automated 343 10 150 -450 10 [facility]: [address] [facility] Normal Neutrophils % 63.1 % 36.0-66.0 % [facility]: [address] [facility] Normal Lymph % 29.3 % 24.0-44.0 % [facility]: [address] [facility] Normal [place] % 5.1 % 2.0-8.0 % [facility]: [address] [facility] Normal Eos % 1.5 % 0.0-3.0 % [facility]: [address] [facility] Normal Baso % 0.7 % 0.0-1.0 % [facility]: [address] [facility] Normal Immature Granulocyte % 0.3 % 0-3.0 % [facility] System: [address] [facility] Normal Nucleated Red Blood Cell % 0.0 % 0- 0 % [facility]: [address] [facility] Normal Neutrophils # 5.9 10 1.5-8.5 10 [facility]: [address] [facility] Normal Lymph # 2.8 10 1.5-5.0 10 [facility]: [address] [facility] Normal [place] # 0.5 10 0.0-0.8 10 [facility]: [address] [facility] Normal Eos # 0.1 10 0.0-0.5 10 [facility]: [address] [facility] Normal Baso # 0.1 10 0.0-0.2 10 [facility]: [address] [facility] 12/16/2020 CMP, Serum or Plasma High Glucose, Fastin g 114 mg/dL 70-100 mg/dL [facility] System: 83 0 [facility] Low Blood Urea Nitrogen 6 mg/dL 7-18 mg/ dL [facility]: 0 [facility] Normal Creatinine for GFR 0.59 mg/dL 0.55-1 .30 mg/dL [facility] System: 0 [facility] Normal Glomerular Filtration Rate > 60.0 >6 0 [facility]: [address] [facility] Normal Sodium Level 139 mEq/L 136-145 mEq/L [facility]: [address] [facility] Normal Potassium Serum 3.5 mEq/L 3.5-5.1 mE q/L [facility]: [address] [facility] Normal Chloride Level 107 mEq/L 98-107 mEq/ L [facility]: [address] [facility] Normal Carbon Dioxide Level 27 mEq/L 21-32 mEq/L [facility]: [address] [facility] Low Anion Gap 5 mEq/L 8-16 mEq/L [facility]: [address] [facility] Normal Calcium Level 8.7 mg/dL 8.5-10.1 mg/ dL [facility]: [address] [facility] Normal AST/SGOT 13 U/L 7-37 U/L [facility]: [address] [facility] Normal ALT/SGPT 23 U/L 12-78 U/L [facility]: [address] [facility] Normal Alkaline Phosphatase 63 U/L 45-117 U /L [facility]: [address] [facility] Normal Bilirubin,total 0.3 mg/dL 0.2-1.0 mg /dL [facility]: [address] [facility] Normal Total Protein 7.4 gm/dL 6.4-8.2 gm/d L [facility]: [address] [facility] Normal Albumin 3.9 gm/dL 3.2-5.2 gm/dL [facility]: [address] [facility] Low Albumin/globulin Ratio 1.1 1.2-2. 2 [facility]: [address] [facility] 12/16/2020 TIBC (Total Iron-binding Capacity), Serum Low Iron (Fe) 36 ug/dL 50-170 ug/dL [facility] nter: 0 [facility] Low Total Iron Binding Capacity 239 ug/d L 250-450 ug/dL [facility] System: 0 [facility] Normal Percent Saturation 15.1 % 13.2-45.0 % [facility]: [address] [facility] 12/16/2020 Ferritin, Serum or Plasma Normal Ferritin 86 NG/mL 8-252 NG/mL [facility] System: 0 [facility] 10/16/2020 Reticulocyte Panel, Blood Normal Reticulocy te % 1.4 % 0.5-1.5 % [facility] System: 83 0 [facility] Normal Reticulocyte # 57.8 10 17-77 10 [facility]: [address] [facility] Low Retic Hemoglobin Equivalent 22.5 pg 24-36 pg [facility]: 0 [facility] 10/16/2020 CBC W/ Auto Diff Normal White Blood Count 9.5 10 4.0-10.0 10 [facility]: [address] [facility] Normal Red Blood Count 4.23 10 4.00-5.40 10 [facility]: 0 [facility] Low Hemoglobin 10.0 g/dL 12.0-15.5 g/dL [facility]: [address] [facility] Low Hematocrit 32.7 % 36.0-47.0 % [facility]: [address] [facility] Low Mean Corpuscular Volume 77.3 fL 80.0 -96.0 fL [facility] System: [address] [place] [address] Low Mean Corpuscular Hemoglobin 23.6 pg 27.0-33.0 pg [facility]: [address] [facility] Low Mean Corpuscular HGB Conc 30.6 g/dL 32.0-36.5 g/dL [facility] System: [address] [place] [address] High Red Cell Distribution Width 15.2 % 1 1.5-14.5 % [facility] System: [address] [place] [address] Normal Platelet Count, Automated 352 10 150 -450 10 [facility]: 0 [facility] High Neutrophils % 71.4 % 36.0-66.0 % [facility]: [address] [facility] Low Lymph % 21.0 % 24.0-44.0 % [facility]: [address] [facility] Normal [place] % 5.9 % 2.0-8.0 % [facility]: 0 [facility] Normal Eos % 0.8 % 0.0-3.0 % [facility]: [address] [facility] Normal Baso % 0.5 % 0.0-1.0 % [facility]: [address] [facility] Normal Immature Granulocyte % 0.4 % 0-3.0 % [facility]: [address] [facility] Normal Nucleated Red Blood Cell % 0.0 % 0- 0 % [facility]: 0 [facility] Normal Neutrophils # 6.7 10 1.5-8.5 10 [facility]: [address] [facility] Normal Lymph # 2.0 10 1.5-5.0 10 [facility]: [address] [facility] Normal [place] # 0.6 10 0.0-0.8 10 [facility]: [address] [facility] Normal Eos # 0.1 10 0.0-0.5 10 [facility]: [address] [facility] Normal Baso # 0.1 10 0.0-0.2 10 [facility]: [address] [facility] 10/16/2020 CMP, Serum or Plasma Normal Glucose, Fastin g 93 mg/dL 70-100 mg/dL [facility] System: 83 0 [facility] Normal Blood Urea Nitrogen 10 mg/dL 7-18 mg /dL [facility]: 0 [facility] Normal Creatinine for GFR 0.55 mg/dL 0.55-1 .30 mg/dL [facility]: 0 [facility] Normal Glomerular Filtration Rate > 60.0 >6 0 [facility]: [address] [facility] Normal Sodium Level 141 mEq/L 136-145 mEq/L [facility]: [address] [facility] Normal Potassium Serum 3.7 mEq/L 3.5-5.1 mE q/L [facility]: 0 [facility] High Chloride Level 109 mEq/L 98-107 mEq/ L [facility]: [address] [facility] Normal Carbon Dioxide Level 26 mEq/L 21-32 mEq/L [facility]: [address] [facility] Low Anion Gap 6 mEq/L 8-16 mEq/L [facility]: [address] [facility] Normal Calcium Level 9.1 mg/dL 8.5-10.1 mg/ dL [facility]: [address] [facility] Normal AST/SGOT 15 U/L 7-37 U/L [facility]: [address] [facility] Normal ALT/SGPT 21 U/L 12-78 U/L [facility]: [address] [facility] Normal Alkaline Phosphatase 66 U/L 45-117 U /L [facility]: 0 [facility] Normal Bilirubin,total 0.3 mg/dL 0.2-1.0 mg /dL [facility] System: [address] [place] [address] Normal Total Protein 7.1 gm/dL 6.4-8.2 gm/d L [facility]: [address] [place] [address] Normal Albumin 3.9 gm/dL 3.2-5.2 gm/dL Mary Grace l [facility]: [address] [place] [address] Normal Albumin/globulin Ratio 1.2 1.2-2. 2 [facility] System: [address] [place] [address] 10/16/2020 TIBC (Total Iron-binding Capacity), Serum Low Iron (Fe) 12 ug/dL 50-170 ug/dL [facility] nter: [address] [place] [address] Normal Total Iron Binding Capacity 349 ug/d L 250-450 ug/dL [facility] System: [address] [place] [address] Low Percent Saturation 3.4 % 13.2-45.0 % [facility] System: [address] [place] [address] 10/16/2020 Vitamin B12 + Folate, Serum or Blood Normal Vitamin B12 Level 689 pg/mL [facility] nter: [address] [place] [address] Normal Folate 9.9 NG/mL [facility]: [address] [place] [address] 10/16/2020 Ferritin, Serum or Plasma Low Ferritin < 3 NG/mL 8-252 NG/mL [facility] System: [address] [place] [address] 08/30/2020 Cbc Normal White Blood Count 5.0 10 4.0-10. 0 10 [facility]: [address] [place] [address] Normal Red Blood Count 4.17 10 4.00-5.40 10 [facility]: [address] [place] [address] Low Hemoglobin 9.9 g/dL 12.0-15.5 g/dL F inal [facility]: [address] [place] [address] Low Hematocrit 33.8 % 36.0-47.0 % [facility]: [address] [facility] Normal Mean Corpuscular Volume 81.1 fL 80.0 -96.0 fL [facility]: [address] [facility] Low Mean Corpuscular Hemoglobin 23.7 pg 27.0-33.0 pg [facility]: [address] [facility] Low Mean Corpuscular HGB Conc 29.3 g/dL 32.0-36.5 g/dL [facility]: [address] [facility] High Red Cell Distribution Width 15.9 % 1 1.5-14.5 % [facility]: [address] [facility] Normal Platelet Count, Automated 359 10 150 -450 10 [facility]: 0 [facility] Normal Nucleated Red Blood Cell % 0.0 % 0- 0 % [facility]: [address] [facility] 08/30/2020 CMP, Serum or Plasma Normal Glucose, Fastin g 91 mg/dL 70-100 mg/dL [facility] System: 83 0 [facility] Low Blood Urea Nitrogen 5 mg/dL 7-18 mg/ dL [facility]: 0 [facility] Normal Creatinine for GFR 0.60 mg/dL 0.55-1 .30 mg/dL [facility]: 0 [facility] Normal Glomerular Filtration Rate > 60.0 >6 0 [facility]: [address] [facility] Normal Sodium Level 140 mEq/L 136-145 mEq/L [facility]: [address] [facility] Normal Potassium Serum 3.6 mEq/L 3.5-5.1 mE q/L [facility]: [address] [facility] Normal Chloride Level 107 mEq/L 98-107 mEq/ L [facility]: 0 [facility] Normal Carbon Dioxide Level 25 mEq/L 21-32 mEq/L [facility]: [address] [facility] Normal Anion Gap 8 mEq/L 8-16 mEq/L [facility]: [address] [facility] Normal Calcium Level 8.5 mg/dL 8.5-10.1 mg/ dL [facility]: [address] [facility] Normal AST/SGOT 17 U/L 7-37 U/L [facility]: [address] [facility] Normal ALT/SGPT 22 U/L 12-78 U/L [facility]: [address] [facility] Normal Alkaline Phosphatase 70 U/L 45-117 U /L [facility]: [address] [facility] D Bilirubin,total 0.6 mg/dL 0.2-1.0 mg /dL [facility]: [address] [facility] Normal Total Protein 6.8 gm/dL 6.4-8.2 gm/d L [facility]: 8[address] [facility] Normal Albumin 3.5 gm/dL 3.2-5.2 gm/dL Mary Grace l [facility]: [address] [facility] Low Albumin/globulin Ratio 1.1 1.2-2. 2 [facility]: [address] [facility] 08/30/2020 Magnesium, Serum or Plasma Normal Magnesium Level 2.0 mg/dL 1.8-2.4 mg/dL [facility] System: 83 0 [facility] 08/29/2020 Respiratory Virus Panel NASOPHARYNX No observ ation recorded. [facility]: [address] [facility] 08/29/2020 SIRI (Antinuclear Antibodies) Screen, Serum Nor mal Antinuclear Antibodies Direct negative negative [facility] ical Center: 8[address] [facility] 08/29/2020 IgG Subclasses(1-4) Normal IgG Subclass 1 752 mg/dL 248-810 mg/dL [facility] System: 83 0 [facility] Normal IgG Subclass 2 250 mg/dL 130-555 mg/ dL [facility]: 8[address] [facility] Normal IgG Subclass 3 81 mg/dL 15-102 mg/dL [facility]: [address] [facility] Normal IgG Subclass 4 28 mg/dL 2-96 mg/dL F inal [facility]: [address] [facility] Normal IgG Serum (Part of Subclasses) 1107 mg/dL 586-1602 mg/dL Final [facility]: [address] [facility] 08/27/2020 CMP, Serum or Plasma Blood venous No observa tion recorded. [facility] (Lab): 830 [facility] 08/27/2020 Lipase, Serum or Plasma Blood venous No obse rvation recorded. 08/27/2020 Amylase, Serum or Plasma Blood venous No observation recorded. 08/27/2020 Cancer Ag 19-9, Serum or Plasma Blood venous No observation recorded. 08/27/2020 Carcinoembryonic Ag, Quant, Serum or Plasma Blood venous No observation recorded. [facility] (Lab): 0 [facility] 08/27/2020 CMP, Serum or Plasma Normal Glucose, Fastin g 70 mg/dL 70-100 mg/dL Health System: 83 0 [facility] Low Blood Urea Nitrogen 6 mg/dL 7-18 mg/ dL Health System: [address] [place] [address] Normal Creatinine for GFR 0.63 mg/dL 0.55-1 .30 mg/dL [facility] System: 0 [facility] Normal Glomerular Filtration Rate > 60.0 >6 0 [facility] System: 0 [facility] Normal Sodium Level 140 mEq/L 136-145 mEq/L [facility] System: 0 [facility] Normal Potassium Serum 4.5 mEq/L 3.5-5.1 mE q/L [facility] System: 0 [facility] Normal Chloride Level 106 mEq/L 98-107 mEq/ L [facility]: 0 [facility] Normal Carbon Dioxide Level 28 mEq/L 21-32 mEq/L [facility] System: 0 [facility] Low Anion Gap 6 mEq/L 8-16 mEq/L [facility] System: 0 [facility] Normal Calcium Level 9.5 mg/dL 8.5-10.1 mg/ dL [facility] System: 830 [facility] Normal AST/SGOT 14 U/L 7-37 U/L [facility]: 830 [facility] Normal ALT/SGPT 21 U/L 12-78 U/L [facility]: 830 [facility] Normal Alkaline Phosphatase 82 U/L 45-117 U /L [facility] System: 830 [facility] Normal Bilirubin,total 0.4 mg/dL 0.2-1.0 mg /dL [facility] System: 830 [facility] Normal Total Protein 7.9 gm/dL 6.4-8.2 gm/d L [facility]: 830 [facility] Normal Albumin 4.1 gm/dL 3.2-5.2 gm/dL Mary Grace l [facility]: 830 [facility] Low Albumin/globulin Ratio 1.1 1.2-2. 2 [facility] System: 830 [facility] 08/27/2020 Ca19-9 Tumor Marker,carbohydra Normal Ca19-9 Tumor Marker,carbohydra 10.8 U/mL <35.0 U/mL [facility]: 830 [facility] 08/27/2020 Amylase, Serum or Plasma Normal Amylase 52 U/L 25-115 U/L [facility] System: 830 [facility] 08/27/2020 Lipase, Serum or Plasma Low Lipase 59 U/L 7 3-393 U/L [facility] System: 830 [facility] 08/27/2020 Carcinoembryonic Ag, Quant, Serum or Plasma Nor mal Carcinoembryonic Antigen < 0.5 NG/mL <2.5 NG/mL [facility]: 830 [facility] 08/21/2020 UA W/ Reflex to Culture Normal Appearance, Urine Rfx clear clear Health System: 83 0 [facility] Normal Color, Urine Rfx yellow yellow [facility] System: 830 [facility] Normal pH,urine Rfx 5.0 units 5.0-9.0 units [facility] System: 830 [facility] Normal Specific [place] Ur Auto Rfx 1.021 1.002-1.035 [facility] System: 830 [facility] Normal Protein, Urine Auto Rfx negative mg/ dL negative mg/dL [facility]: 830 [facility] Normal Glucose, Urine (UA) Auto Rfx n egative mg/dL negative mg/dL [facility]: 830 [facility] Normal Ketone, Urine Auto Rfx negative mg/d L negative mg/dL [facility]: 830 [facility] Normal Urobilinogen, Urine Auto Rfx 0.2 mg/ dL 0.0-2.0 mg/dL [facility]: 830 [facility] Normal Bilirubin, Urine Auto Rfx negative n egative [facility] System: 830 [facility] Normal Nitrite, Urine Auto Rfx negative neg ative [facility]: 830 [facility] Normal Leukocyte Esterase Ur Auto Rfx negat ambrocio negative [facility]: 830 [facility] Normal Blood, Urine Blood Rfx negative nega tive [facility]: 830 [facility] Normal WBC, Urine Auto Rfx 1 /hpf 0-3 /hpf [facility] System: 830 [facility] Normal RBC, Urine Auto Rfx 1 /hpf 0-3 /hpf [facility]: 830 [facility] Normal Bacteria, Urine Auto Rfx negative ne gative [facility] System: 830 [facility] Normal Squam Epithelial Cell Ur Aurfx 1 /hp f 0-6 /hpf [facility]: 830 [facility] Normal Mucus, Urine Rfx small negative Fin [facility]: 830 [facility] Normal Hyaline Cast, Urine Auto Rfx 0 /lpf 0-1 /lpf [facility] System: 830 [facility] 08/21/2020 CBC W/ Auto Diff Normal White Blood Count 7.9 10 4.0-10.0 10 [facility]: 830 [facility] Normal Red Blood Count 4.48 10 4.00-5.40 10 [facility]: 830 [facility] Low Hemoglobin 11.0 g/dL 12.0-15.5 g/dL Final [facility]: [address] [place] [address] Low Hematocrit 35.8 % 36.0-47.0 % Health System: [address] [place] [address] Low Mean Corpuscular Volume 79.9 fL 80.0 -96.0 fL Health System: [address] [place] [address] Low Mean Corpuscular Hemoglobin 24.6 pg 27.0-33.0 pg [facility] System: [address] [place] [address] Low Mean Corpuscular HGB Conc 30.7 g/dL 32.0-36.5 g/dL [facility] System: [address] [place] [address] High Red Cell Distribution Width 16.2 % 1 1.5-14.5 % [facility] System: [address] [place] [address] Normal Platelet Count, Automated 436 10 150 -450 10 [facility]: 830 [facility] High Neutrophils % 67.7 % 36.0-66.0 % Fin [facility]: 830 [facility] Low Lymph % 22.0 % 24.0-44.0 % [facility]: 830 [facility] High [place] % 6.7 % 0.0-5.0 % Final [facility]: 830 [facility] Normal Eos % 1.8 % 0.0-3.0 % [facility]: 0 [facility] High Baso % 1.3 % 0.0-1.0 % [facility]: 830 [facility] Normal Immature Granulocyte % 0.5 % 0-3.0 % [facility]: 830 [facility] Normal Nucleated Red Blood Cell % 0.0 % 0- 0 % [facility]: 830 [facility] Normal Neutrophils # 5.3 10 1.5-8.5 10 [facility]: 830 [facility] Normal Lymph # 1.7 10 1.5-5.0 10 [facility]: 830 [facility] Normal [place] # 0.5 10 0.0-0.8 10 [facility]: 830 [facility] Normal Eos # 0.1 10 0.0-0.5 10 [facility]: 830 [facility] Normal Baso # 0.1 10 0.0-0.2 10 [facility]: 830 [facility] 08/21/2020 Hepatic Function Panel, Serum Normal AST/SG OT 17 U/L 7-37 U/L [facility] System: 0 [facility] Normal ALT/SGPT 25 U/L 12-78 U/L [facility]: 830 [facility] Normal Alkaline Phosphatase 80 U/L 45-117 U /L [facility]: 0 [facility] Normal Bilirubin,total 0.3 mg/dL 0.2-1.0 mg /dL [facility] System: 0 [facility] Normal Bilirubin,direct < 0.1 mg/dL 0.0-0.2 mg/dL [facility] System: 0 [facility] Normal Total Protein 8.0 gm/dL 6.4-8.2 gm/d L [facility]: 0 [facility] Normal Albumin 4.0 gm/dL 3.2-5.2 gm/dL [facility]: 0 [facility] Low Albumin/globulin Ratio 1.0 1.2-2. 2 Health System: [address] [place] [address] 08/21/2020 BMP, Serum or Plasma Normal Glucose, Fastin g 91 mg/dL 70-100 mg/dL [facility] System: 83 0 [facility] Normal Blood Urea Nitrogen 9 mg/dL 7-18 mg/ dL [facility]: 830 [facility] Normal Creatinine for GFR 0.64 mg/dL 0.55-1 .30 mg/dL [facility] System: 0 [facility] Normal Glomerular Filtration Rate > 60.0 >6 0 [facility]: 830 [facility] Normal Sodium Level 139 mEq/L 136-145 mEq/L [facility]: 830 [facility] Normal Potassium Serum 3.7 mEq/L 3.5-5.1 mE q/L [facility] System: 0 [facility] High Chloride Level 108 mEq/L 98-107 mEq/ L [facility]: 0 [facility] Normal Carbon Dioxide Level 23 mEq/L 21-32 mEq/L [facility]: 830 [facility] Normal Anion Gap 8 mEq/L 8-16 mEq/L [facility]: 830 [facility] Normal Calcium Level 8.5 mg/dL 8.5-10.1 mg/ dL [facility] System: 0 [facility] 08/21/2020 Lipase, Serum or Plasma High Lipase 877 U/L 73-393 U/L [facility] System: 0 [facility] 08/05/2020 SARS CoV 2 RdRp Gene, QL Probe, Respiratory Spec imen Nasopharyngeal Normal Sars-cov-2 negative negative Final [facility] Medical: 238 [facility] 05/03/2020 Culture, Urine URINE,CLEAN CATCH No observation recorded. [facility]: [address] [place] [address] Past Encounters 03/20/2021 Chronic Thyroiditis Filiberto Estevez RPA-C: [address] [place] [address], [facility] [address] [address], Ph. 02/03/2021 Painful Rectal Bleeding; Acute Upper Respiratory Infection; Urine Looks Dark Filiberto Estevez RPA-C: [address] [place] [address], [facility] [address], [place] [address], Ph. 01/17/2021 Anemia; Gastroesophageal Reflux Disease without Esophagitis; Uncomplicated Mild Persistent Asthma; Chronic Thyroiditis; Immunization Advised Filiberto Estevez RPA-C: [address] [facility], [facility] [address], [place] [address], Ph. 08/27/2020 High Lipase Level in Serum Aracelis Araujo MD: [address] [facility], [facility] [address], [place] [address], Ph. 08/05/2020 Exposure to SARS-CoV-2 Gregg Lucio MD: [address] [place] [address], Ph. 05/03/2020 Anemia; Iron Deficiency; Suprapubic Pain; Diffuse Goiter; Uncomplicated Mild Persistent Asthma Filiberto Estevez RPA-C: [address] [facility] [address], [place] [address], Ph. Social History Tobacco Smoking Status Light [...] 22 kg/m2 109/75 mm[Hg] 01/17/2021 08:50AM ESTABLISHED [id number] Height Weight BMI Blood Pressure 65 in 130 lbs 16 oz 21.8 kg/m2 108/72 mm[Hg] 08/27/2020 10:00AM ESTABLISHED [id number] Height Weight BMI Blood Pressure 65 in 147 lbs 24.5 kg/m2 124/77 mm[Hg] 05/03/2020 10:10AM ESTABLISHED [id number] Height Weight BMI Blood Pressure 65 in 156 lbs 16 oz 26.1 kg/m2 117/85 mm[Hg] 02/23/2020 Height Weight BMI Blood Pressure 65 in 154 lbs 6.08 oz 25.78 kg/m2 119/78 mm[H g] 01/18/2020 Height Weight BMI Blood Pressure 65 in 157 lbs 6.08 oz 26.28 kg/m2 129/78 mm[H g]
--- OUTSIDE RECORDS SUMMARY | 2021-05-21 12:19 | CCD | Continuity of Care Document ---
Author Author Akilah GOODE M.D. Organization Unknown Address [address] [place] [address] Phone [phone] Care Team Providers Care Freight Separator Name Role Phone Aracelis Araujo MD AUTM [phone] Filiberto Estevez AUTM [phone] Problems Active Problems Provider Date Abdominal pain Nuno Goode M.D. Onset: 08/29/19 21 Social History Type Date Description Comments Sex Unknown ETOH Use Occasionally Tobacco Use Start: Unknown Patient is a current smoker, smo kes every day Allergies and adverse reactions Description No Known Drug Allergies Medications Active Medications SIG Qnty Indications Ordering Provide r Date Sutab [phone] Tablets as directed 1box Nuno Goode M.D. 04/01/2021 Gabapentin 400mg Capsules Filiberto Stokes Zyrtec Allergy 10mg Tablets Unknown Immunizations Description No Information Available Vital Signs Date Vital Result Comment 04/01/2021 2:19pm Height 63 inches 5'3" Weight 130.00 lb BP Systolic 112 mmHg BP Diastolic 71 mmHg Heart Rate 85 /min BMI (Body Mass Index) 23.0 kg/m2 Weight 58.968 kg Body Temperature 97.7 F 08/29/2020 9:14am Height 63 inches 5'3" Weight 146.00 lb BP Systolic 124 mmHg BP Diastolic 81 mmHg Heart Rate 84 /min BMI (Body Mass Index) 25.9 kg/m2 Weight 66.226 kg Body Temperature 97.9 F Results Description No Information Available Procedures Date Code Description Status 04/01/2021 07331 Office/Outpatient Established Mo d MDM 30-39 Min Completed Medical Devices Description No Information Available Encounters Type Date Location Provider Dx Diagnosis Office Visit 04/01/2021 1:45p Main Office Nuno Goode M.D. K 58.9 Irritable bowel syndrome without diarrhea R10.10 Upper abdominal pain, unspec ified Assessments Date Code Description Provider 04/01/2021 K58.9 Irritable bowel syndrome Nuno Goode M.D. 04/01/2021 R10.10 Abdominal pain Nuno cuellar M.D. Plan of Treatment Future Appointment(s):* 05/21/2021 12:15 pm - Nuno Goode M.D. at Main Office 04/01/2021 - Nuno Goode M.D.* K58.9 Irritable bowel syndrome* Comments: * 35 yo wf who presented for a h/o epigastric pain/Lipase over 800. Pt stateed having attacks of abdominal pain/diarrhea every 3 months for the last 3 yrs.The last attack was in february. Then over the past week. Denies heavy alcohol abuse. Has nausea, no vomiting. Pt has lost weight. Pt is improved. She has irregular bowel habits, abdominal pain, and heartburn. Plan:1. Colonoscopy + ileoscopy + egd + biopsies. Check for celiac + Crohn's disease.2. Informed consent. * R10.10 Abdominal pain* Comments:* As above. Functional Status Description No Information Available Mental Status Description No Information Available Referrals Refer to Reason for Referral Status Appt Date Nuno Goode M.D. Created [address] [place] [address] [phone]
--- OUTSIDE RECORDS SUMMARY | 2021-05-21 12:22 | CCD ---
Author Author [facility] Organization [facility] Address Unknown Phone Unavailable Care Team Providers Care Smearer Name Role Phone Gutiérrez, Shahida LABORATORY PHLEBOTOMIST Unavailable Unavailable Gutiérrez, Shahida LABORATORY PHLEBOTOMIST Unavailable Unavailable Gutiérrez, Shahida LABORATORY PHLEBOTOMIST Unavailable Unavailable Gutiérrez, Shahida LABORATORY PHLEBOTOMIST Unavailable Unavailable Gutiérrez, Shahida LABORATORY PHLEBOTOMIST Unavailable Unavailable Gutiérrez, Shahida LABORATORY PHLEBOTOMIST Unavailable Unavailable Gutiérrez, Shahida LABORATORY PHLEBOTOMIST Unavailable Unavailable Gutiérrez, Shahida LABORATORY PHLEBOTOMIST Unavailable Unavailable Gutiérrez, Shahida LABORATORY PHLEBOTOMIST Unavailable Unavailable Gutiérrez, Shahida LABORATORY PHLEBOTOMIST Unavailable Unavailable Gutiérrez, Shahida LABORATORY PHLEBOTOMIST Unavailable Unavailable Gutiérrez, Shahida LABORATORY PHLEBOTOMIST Unavailable Unavailable Gutiérrez, Shahida LABORATORY PHLEBOTOMIST Unavailable Unavailable Kylie Lucio MD Unavailable Unavailable [...] Unavailable Kylie Lucio MD Unavailable Unavailable Kylie Lucoi MD Unavailable Unavailable Kylie Lucio MD Unavailable [...] Unavailable Unavailable Kylie Lucio MD Unavailable Unavailable Lucio, Kylie Escobedo MD Unavailable Unavailable Lucio, Kylie Escobedo MD Unavailable Unavailable Lucio, Kylie Escobedo MD Unavailable Unavailable Lucio, Kylie Escobedo MD Unavailable Unavailable Lucio, Kylie Escobedo MD Unavailable Unavailable Lucio, Kylie Escobedo MD Unavailable Unavailable Lucio, Kylie Escobedo MD Unavailable Unavailable Lucio, Kylie Escobedo MD Unavailable Unavailable Lucio, Kylie Escobedo MD Unavailable Unavailable Lucio, Kylie Escobedo MD Unavailable Unavailable Lucio, Kylie Escobedo MD Unavailable Unavailable Lucio, Kylie Escobedo MD Unavailable Unavailable Lucio, Kylie Escobedo MD Unavailable Unavailable Lucio, Kylie Escobedo MD Unavailable Unavailable Lucio, Kylie Escobedo MD Unavailable Unavailable Lucio, Kylie Escobedo MD Unavailable Unavailable Lucio, Kylie Escobedo MD Unavailable Unavailable Lucio, Kylie Escobedo MD Unavailable Unavailable Lucio, Kylie Escobedo MD Unavailable Unavailable Lucio, Kylie Escobedo MD Unavailable Unavailable Lucio, Kylie Escobedo MD Unavailable Unavailable Lucio, Kylie Escobedo MD Unavailable Unavailable Lucio, Kylie Escobedo MD Unavailable Unavailable Lucio, Kylie Escobedo MD Unavailable Unavailable ESTEVEZ, GENARO FILIBERTO RPA-C Unavailable Unavailable ESTEVEZ, GENARO FILIBERTO RPA-C Unavailable Unavailable ESTEVEZ, GENARO FILIBERTO RPA-C Unavailable Unavailable ESTEVEZ, GENARO FILIBERTO RPA-C Unavailable Unavailable ESTEVEZ, GENARO FILIBERTO RPA-C Unavailable Unavailable ESTEVEZ, GENARO FILIBERTO RPA-C Unavailable Unavailable ESTEVEZ, GENARO FILIBERTO RPA-C Unavailable Unavailable ESTEVEZ, GENARO FILIBERTO RPA-C Unavailable Unavailable ESTEVEZ, GENARO FILIBERTO RPA-C Unavailable Unavailable ESTEVEZ, GENARO FILIBERTO RPA-C Unavailable Unavailable ESTEVEZ, GENARO FILIBERTO RPA-C Unavailable Unavailable ESTEVEZ, GENARO FILIBERTO RPA-C Unavailable Unavailable ESTEVEZ, GENARO FILIBERTO RPA-C Unavailable Unavailable ESTEVEZ, GENARO FILIBERTO RPA-C Unavailable Unavailable ESTEVEZ, GENARO FILIBERTO RPA-C Unavailable Unavailable ESTEVEZ, GENARO FILIBERTO RPA-C Unavailable Unavailable ESTEVEZ, GENARO FILIBERTO RPA-C Unavailable Unavailable ESTEVEZ, GENARO FILIBERTO RPA-C Unavailable Unavailable ESTEVEZ, GENARO FILIBERTO RPA-C Unavailable Unavailable ESTEVEZ, GENARO FILIBERTO RPA-C Unavailable Unavailable ESTEVEZ, GENARO FILIBERTO RPA-C Unavailable Unavailable ESTEVEZ, GENARO FILIBERTO RPA-C Unavailable Unavailable ESTEVEZ, GENARO FILIBERTO RPA-C Unavailable Unavailable ESTEVEZ, GENARO FILIBERTO RPA-C Unavailable Unavailable ESTEVEZ, GENARO FILIBERTO RPA-C Unavailable Unavailable ESTEVEZ, GENARO FILIBERTO RPA-C Unavailable Unavailable ESTEVEZ, GENARO FILIBERTO RPA-C Unavailable Unavailable ESTEVEZ, GENARO FILIBERTO RPA-C Unavailable Unavailable ESTEVEZ, GENARO FILIBERTO RPA-C Unavailable Unavailable ESTEVEZ, GENARO FILIBERTO RPA-C Unavailable Unavailable ESTEVEZ, GENARO FILIBERTO RPA-C Unavailable Unavailable ESTEVEZ, GENARO FILIBERTO RPA-C Unavailable Unavailable ESTEVEZ, GENARO FILIBERTO RPA-C Unavailable Unavailable ESTEVEZ, GENARO FILIBERTO RPA-C Unavailable Unavailable ESTEVEZ, GENARO FILIBERTO RPA-C Unavailable Unavailable ESTEVEZ, GENARO FILIBERTO RPA-C Unavailable Unavailable ESTEVEZ, GENARO FILIBERTO RPA-C Unavailable Unavailable ESTEVEZ, GENARO FILIBERTO RPA-C Unavailable Unavailable ESTEVEZ, GENARO FILIBERTO RPA-C Unavailable Unavailable ESTEVEZ, GENARO FILIBERTO RPA-C Unavailable Unavailable ESTEVEZ, GENARO FILIBERTO RPA-C Unavailable Unavailable ESTEVEZ, GENARO FILIBERTO RPA-C Unavailable Unavailable ESTEVEZ, GENARO FILIBERTO RPA-C Unavailable Unavailable Kalyn Goode MD Unavailable Unavailable Kalyn Goode MD Unavailable Unavailable Kalyn Goode MD Unavailable Unavailable Kalyn Goode MD Unavailable Unavailable Kalyn Goode MD Unavailable Unavailable Kalyn Goode MD Unavailable Unavailable Kalyn Goode MD Unavailable Unavailable Kalyn Goode MD Unavailable Unavailable Kalyn Goode MD Unavailable Unavailable Kalyn Goode MD Unavailable Unavailable Kalyn Goode MD Unavailable Unavailable Kalyn Goode MD Unavailable Unavailable Kalyn Goode MD Unavailable Unavailable Kalyn Goode MD Unavailable Unavailable Kalyn Goode MD Unavailable Unavailable Kalyn Goode MD Unavailable Unavailable Kalyn Goode MD Unavailable Unavailable Klayn Goode MD Unavailable Unavailable Kalyn Goode MD Unavailable Unavailable Kalyn Goode MD Unavailable Unavailable Kalyn Goode MD Unavailable Unavailable Kalyn Goode MD Unavailable Unavailable Kalyn Goode MD Unavailable Unavailable Kalyn Goode MD Unavailable Unavailable Kalyn Goode MD Unavailable Unavailable Kalyn Goode MD Unavailable Unavailable Kalyn Goode MD Unavailable Unavailable Kalyn Goode MD Unavailable Unavailable Kalyn Goode MD Unavailable Unavailable Kalyn Goode MD Unavailable Unavailable Kalyn Goode MD Unavailable Unavailable Kalyn Goode MD Unavailable Unavailable Kalyn Goode MD Unavailable Unavailable Kalyn Goode MD Unavailable Unavailable Kalyn Goode MD Unavailable Unavailable Rupa, S Nuno WALLACE Unavailable Unavailable Rupa, S Nuno WALLACE Unavailable Unavailable Rupa, S Nuno WALLACE Unavailable Unavailable Rupa, S Nuno WALLACE Unavailable Unavailable Rupa, S Nuno WALLACE Unavailable Unavailable Rupa, S Nuno WALLACE Unavailable Unavailable Rupa, S Nuno WALLACE Unavailable Unavailable Rupa, S Nuno WALLACE Unavailable Unavailable Rupa, S Nuno WALLACE Unavailable Unavailable Rupa, S Nuno WALLACE Unavailable Unavailable Rupa, S Nuno WALLACE Unavailable Unavailable Rupa, S Nuno WALLACE Unavailable Unavailable Rupa, S Nuno WALLACE Unavailable Unavailable Rupa, S Nuno WALLACE Unavailable Unavailable Rupa, S Nuno WALLACE Unavailable Unavailable ESTEVEZ, GENARO FILIBERTO RPA-C Unavailable Unavailable ESTEVEZ, GENARO FILIBERTO RPA-C Unavailable Unavailable ESTEVEZ, GENARO FILIBERTO RPA-C Unavailable Unavailable ESTEVEZ, GENARO FILIBERTO RPA-C Unavailable Unavailable ESTEVEZ, GENARO FILIBERTO RPA-C Unavailable Unavailable ESTEVEZ, GENARO FILIBERTO RPA-C Unavailable Unavailable ESTEVEZ, GENARO FILIBERTO RPA-C Unavailable Unavailable ESTEVEZ, GENARO FILIBERTO RPA-C Unavailable Unavailable ESTEVEZ, GENARO FILIBERTO RPA-C Unavailable Unavailable ESTEVEZ, GENARO FILIBERTO RPA-C Unavailable Unavailable ESTEVEZ, GENARO FILIBERTO RPA-C Unavailable Unavailable ESTEVEZ, GENARO FILIBERTO RPA-C Unavailable Unavailable ESTEVEZ, GENAOR FILIBERTO RPA-C Unavailable Unavailable ESTEVEZ, GENARO FILIBERTO RPA-C Unavailable Unavailable ESTEVEZ, GENARO FILIBERTO RPA-C Unavailable Unavailable ESTEVEZ, GENARO FILIBERTO RPA-C Unavailable Unavailable ESTEVEZ, GENARO FILIBERTO RPA-C Unavailable Unavailable ESTEVEZ, GENARO FILIBERTO RPA-C Unavailable Unavailable ESTEVEZ, GENARO FILIBERTO RPA-C Unavailable Unavailable ESTEVEZ, GENARO FILIBERTO RPA-C Unavailable Unavailable ESTEVEZ, GENARO FILIBERTO RPA-C Unavailable Unavailable ESTEVEZ, GENARO FILIBERTO RPA-C Unavailable Unavailable ESTEVEZ, GENARO FILIBERTO RPA-C Unavailable Unavailable ESTEVEZ, GENARO FILIBERTO RPA-C Unavailable Unavailable ESTEVEZ, GENARO FILIBERTO RPA-C Unavailable Unavailable ESTEVEZ, GENARO FILIBERTO RPA-C Unavailable Unavailable ESTEVEZ, GENARO FILIBERTO RPA-C Unavailable Unavailable ESTEVEZ, GENARO FILIBERTO RPA-C Unavailable Unavailable ESTEVEZ, GENARO FILIBERTO RPA-C Unavailable Unavailable ESTEVEZ, GENARO FILIBERTO RPA-C Unavailable Unavailable ESTEVEZ, GENARO FILIBERTO RPA-C Unavailable Unavailable ESTEVEZ, GENARO FILIBERTO RPA-C Unavailable Unavailable ESTEVEZ, GENARO FILIBERTO RPA-C Unavailable Unavailable ESTEVEZ, GENARO FILIBERTO RPA-C Unavailable Unavailable ESTEVEZ, GENARO FILIBERTO RPA-C Unavailable Unavailable ESTEVEZ, GENARO FILIBERTO RPA-C Unavailable Unavailable ESTEVEZ, GENARO FILIBERTO RPA-C Unavailable Unavailable ESTEVEZ, GENARO FILIBERTO RPA-C Unavailable Unavailable ESTEVEZ, GENARO FILIBERTO RPA-C Unavailable Unavailable ESTEVEZ, GENARO FILIBERTO RPA-C Unavailable Unavailable ESTEVEZ, GENARO FILIBERTO RPA-C Unavailable Unavailable ESTEVEZ, GENARO FILIBERTO RPA-C Unavailable Unavailable ESTEVEZ, GENARO FILIBERTO RPA-C Unavailable Unavailable Gayle, Brissa Unavailable Unavailable Gayle, Brissa Unavailable Unavailable Gayle, Brissa Unavailable Unavailable Gayle, Brissa Unavailable Unavailable Gayle, Brissa Unavailable Unavailable Gayle, Brissa Unavailable Unavailable Gayle, Brissa Unavailable Unavailable Gayle, Brissa Unavailable Unavailable Gayle, Brissa Unavailable Unavailable Gayle, Brissa Unavailable Unavailable Gayle, Brissa Unavailable Unavailable Gayle, Brissa Unavailable Unavailable Gayle, Brissa Unavailable Unavailable Gayle, Brissa Unavailable Unavailable Gayle, Brissa Unavailable Unavailable Gayle, Brissa Unavailable Unavailable Gayle, Brissa Unavailable Unavailable Gayle, Brissa Unavailable Unavailable Gayle, Brissa Unavailable Unavailable Gayle, Brissa Unavailable Unavailable Gayle, Brissa Unavailable Unavailable Gayle, Brissa Unavailable Unavailable Gayle, Brissa Unavailable Unavailable Gayle, Brissa Unavailable Unavailable Gayle, Brissa Unavailable Unavailable Gayle, Brissa Unavailable Unavailable Monge, Maru Martina PA Unavailable Unavailable Monge, Maru Martina PA Unavailable Unavailable Monge, Maru Martina PA Unavailable Unavailable Monge, Maru Martina PA Unavailable Unavailable Monge, Maru Martina PA Unavailable Unavailable Monge, Maru Martina PA Unavailable Unavailable Monge, Maru Martina PA Unavailable Unavailable Monge, Maru Martina PA Unavailable Unavailable Monge, Maru Martina PA Unavailable Unavailable Monge, Maru Martina PA Unavailable Unavailable TURRIN, NEEL Unavailable Unavailable TURRIN, NEEL Unavailable Unavailable TURRIN, NEEL Unavailable Unavailable TURRIN, NEEL Unavailable Unavailable ESTEVEZ, GENARO FILIBERTO RPA-C Unavailable Unavailable ESTEVEZ, GENARO FILIBERTO RPA-C Unavailable Unavailable ESTEVEZ, GENARO FILIBERTO RPA-C Unavailable Unavailable ESTEVEZ, GENARO FILIBERTO RPA-C Unavailable Unavailable ESTEVEZ, GENARO FILIBERTO RPA-C Unavailable Unavailable ESTEVEZ, GENARO FILIBERTO RPA-C Unavailable Unavailable ESTEVEZ, GENARO FILIBERTO RPA-C Unavailable Unavailable ESTEVEZ, GENARO FILIBERTO RPA-C Unavailable Unavailable ESTEVEZ, GENARO FILIBERTO RPA-C Unavailable Unavailable ESTEVEZ, GENARO FILIBERTO RPA-C Unavailable Unavailable ESTEVEZ, GENARO FILIBERTO RPA-C Unavailable Unavailable ESTEVEZ, GENARO FILIBERTO RPA-C Unavailable Unavailable ESTEVEZ, GENARO FILIBERTO RPA-C Unavailable Unavailable ESTEVEZ, GENARO FILIBERTO RPA-C Unavailable Unavailable ESTEVEZ, GENARO FILIBERTO RPA-C Unavailable Unavailable ESTEVEZ, GENARO FILIBERTO RPA-C Unavailable Unavailable ESTEVEZ, GENARO FILIBERTO RPA-C Unavailable Unavailable ESTEVEZ, GENARO FILIBERTO RPA-C Unavailable Unavailable ESTEVEZ, GENARO FILIBERTO RPA-C Unavailable Unavailable ESTEVEZ, GENARO FILIBERTO RPA-C Unavailable Unavailable ESTEVEZ, GENARO FILIBERTO RPA-C Unavailable Unavailable ESTEVEZ, GENARO FILIBERTO RPA-C Unavailable Unavailable ESTEVEZ, GENARO FILIBERTO RPA-C Unavailable Unavailable ESTEVEZ, GENARO FILIBERTO RPA-C Unavailable Unavailable ESTEVEZ, GENARO FILIBERTO RPA-C Unavailable Unavailable ESTEVEZ, GENARO FILIBERTO RPA-C Unavailable Unavailable ESTEVEZ, GENARO FILIBERTO RPA-C Unavailable Unavailable ESTEVEZ, GENARO FILIBERTO RPA-C Unavailable Unavailable ESTEVEZ, GENARO FILIBERTO RPA-C Unavailable Unavailable ESTEVEZ, GENARO FILIBERTO RPA-C Unavailable Unavailable ESTEVEZ, GENARO FILIBERTO RPA-C Unavailable Unavailable ESTEVEZ, GENARO FILIBERTO RPA-C Unavailable Unavailable ESTEVEZ, GENARO FILIBERTO RPA-C Unavailable Unavailable ESTEVEZ, GENARO FILIBERTO RPA-C Unavailable Unavailable ESTEVEZ, GENARO FILIBERTO RPA-C Unavailable Unavailable ESTEVEZ, GENARO FILIBERTO RPA-C Unavailable Unavailable ESTEVEZ, GENARO FILIBERTO RPA-C Unavailable Unavailable ESTEVEZ, GENARO FILIBERTO RPA-C Unavailable Unavailable ESTEVEZ, GENARO FILIBERTO RPA-C Unavailable Unavailable ESTEVEZ, GENARO FILIBERTO RPA-C Unavailable Unavailable ESTEVEZ, GENARO FILIBERTO RPA-C Unavailable Unavailable ESTEVEZGENARO FILIBERTO RPA-C Unavailable Unavailable ESTEVEZ, GENARO FILIBERTO RPA-C Unavailable Unavailable WEN, SAMUEL PA Unavailable Unavailable [...] Unavailable WEN, SAMUEL PA Unavailable Unavailable WEN, SAMULE PA Unavailable Unavailable WEN, SAMUEL PA Unavailable Unavailable WEN, SMAUEL PA Unavailable Unavailable WEN, SAMUEL PA Unavailable [...] Unavailable Zaheer Swan MD Unavailable Unavailable BenyZaheer MD Unavailable Unavailable RutherfordZaheer MD Unavailable Unavailable RutherfordZaheer MD Unavailable Unavailable BenyZaheer MD Unavailable Unavailable BenyZaheer MD Unavailable Unavailable RutherfordZaheer MD Unavailable Unavailable BenyZaheer MD Unavailable Unavailable BenyZaheer MD Unavailable Unavailable BenyZaheer MD Unavailable Unavailable RutherfordZaheer MD Unavailable Unavailable BenyZaheer MD Unavailable Unavailable RutherfordZaheer MD Unavailable Unavailable BenyZaheer MD Unavailable Unavailable BenyZaheer MD Unavailable Unavailable BenyZaheer MD Unavailable Unavailable RutherfordZaheer MD Unavailable Unavailable RutherfordZaheer MD Unavailable Unavailable BenyZaheer MD Unavailable Unavailable BenyZaheer MD Unavailable Unavailable BenyZaheer MD Unavailable Unavailable RutherfordZaheer MD Unavailable Unavailable BenyZaheer MD Unavailable Unavailable BenyZaheer MD Unavailable Unavailable RutherfordZaheer MD Unavailable Unavailable BenyZaheer MD Unavailable Unavailable RutherfordZaheer MD Unavailable Unavailable BenyZaheer MD Unavailable Unavailable BenyZaheer MD Unavailable Unavailable RutherfordZaheer MD Unavailable Unavailable BenyZaheer MD Unavailable Unavailable RutherfordZaheer MD Unavailable Unavailable BenyZaheer MD Unavailable Unavailable BenyZaheer MD Unavailable Unavailable RutherfordZaheer MD Unavailable Unavailable RutherfordZaheer MD Unavailable Unavailable RutherfordZaheer [place] MD Unavailable Unavailable RutherfordZaheer MD Unavailable Unavailable RutherfordZaheer MD Unavailable Unavailable BenyZaheer MD Unavailable Unavailable RutherfordZaheer MD Unavailable Unavailable RutherfordZaheer MD Unavailable Unavailable BenyZaheer MD Unavailable Unavailable RutherfordZaheer [place] MD Unavailable Unavailable BenyZaheer MD Unavailable Unavailable BenyZaheer MD Unavailable Unavailable RutherfordZaheer MD Unavailable Unavailable BenyZaheer MD Unavailable Unavailable RutherfordZaheer MD Unavailable Unavailable BenyZaheer MD Unavailable Unavailable RutherfordZaheer MD Unavailable Unavailable BenyZaheer MD Unavailable Unavailable BenyZaheer MD Unavailable Unavailable RutherfordZaheer MD Unavailable Unavailable BenyZaheer MD Unavailable Unavailable BenyZaheer MD Unavailable Unavailable Rutherford, Zaheer Pedrito WALLACE Unavailable Unavailable Beny, Zaheer Pedrito WALLACE Unavailable Unavailable Beny, Zaheer Pedrito WALLACE Unavailable Unavailable Beny, Zaheer Pedrito WALLACE Unavailable Unavailable Rutherford, Zaheer Pedrito WALLACE Unavailable Unavailable Beny, Zaheer Pedrito MD Unavailable Unavailable Rutherford, Zaheer Pedrito MD Unavailable Unavailable Beny, Zaheer Pedrito WALLACE Unavailable Unavailable Rutherford, Zaheer Pedrito MD Unavailable Unavailable Rutherford, Zaheer Pedrito MD Unavailable Unavailable Rutherford, Zaheer Pedrito MD Unavailable Unavailable Beny, Zaheer Pedrito MD Unavailable Unavailable Beny, Zaheer Pedrito MD Unavailable Unavailable Rutherford, Zaheer Major MD Unavailable Unavailable Campanaro, Mare Tanvi PA Unavailable [...] Unavailable Campanaro, Mare Tanvi PA Unavailable Unavailable Re-disclosure Warning The records that [...] is protected by Article 27-F of the [place] State Public Health law. If you continue you may have access to information: Regarding HIV / AIDS; Provided by facilities licensed or operated by the [facility] Office of Mental Health; or Provided by the [facility] Office for People With Developmental Disabilities. If such information is present, then the following [facility] mandated warning applies: This information has [...] law may result in a fine or assisted sentence or both. A general authorization for the release of medical or other information is NOT sufficient authorization for further disc losure. Allergies and Adverse Reactions Type Description Substance Reaction Status Data Source(s ) No Known Drug Allergies No Known Drug Allergies [facility] Family History Family Member Name Family Member Gender Family Member Status Date o f Status Description Data Source(s) Unknown Female Problem [facility] ([facility] ) Unknown Unknown Problem [facility] ([facility], ) Negative for inflammatory bowel disease, positive for colorectal carcinoma in her grandfather Unknown Unknown Problem [facility] ([facility], ) Unknown Unknown Problem [facility] ([facility], ) Unknown Unknown Problem [facility] ([facility], ) Unknown Unknown Problem [facility] ([facility], ) Unknown Unknown Problem [facility] ([facility], ) Encounters Encounter Providers Location Date Indications Data Source(s ) Outpatient Attender: Nuno Goode MD Main Office 04/01/2021 01:45:00 PM EDT [facility] ([facility]) JOELLE Romero: [address], [place] [address], Ph. Attender: FILIBERTO LAI [facility] Medical 03/27/2021 12:00:00 AM EDT [facility] ([facility]) JOELLE Romero: [address], [place] [address], Ph. Attender: FILIBERTO LAI [facility] Medical 03/21/2021 12:00:00 AM EDT [facility] ([facility]) Filiberto Estevez RPA-C: [address], [place] [address], Ph. Attender: FILIBERTO LAI [facility] Medical 03/21/2021 12:00:00 AM EDT [facility] ([facility]) Filiberto Estevez RPA-C: [address], [place] [address], Ph. Attender: FILIBERTO LAI [facility] Medical 03/20/2021 12:00:00 AM EDT [facility] ([facility]) Filiberto Estevez RPA-C: [address], [place] [address], Ph. Attender: FILIBERTO ESTEVEZ RPA-C [facility] Medical 03/20/2021 12:00:00 AM EDT [facility] ([facility]) Filiberto Estevez RPA-C: [address], [place] [address], Ph. Attender: FILIBERTO ESTEVEZ RPA-C [facility] Medical 03/20/2021 12:00:00 AM EDT [facility] ([facility]) Emergency Attender: NEEL Llanos sultant: FILIBERTO ESTEVEZ RPA-CConsultant: Pedrito Swan MD 02/10/2021 08:49:00 PM EDT - 02/11/2021 12:16 :00 AM EDT [facility] Patient discharged. Outpatient Attender: Shahida gipson 02/07/2021 05:50:00 PM EDT [facility]) Filiberto Estevez, RPA-C: [address], [place] [address], Ph. Attender: FILIBERTO ESTEVEZ RPA-C [facility] Medical 02/03/2021 12:00:00 AM EDT [facility] ([facility]) Filiberto Estevez, RPA-C: [address], [place] [address], Ph. Attender: FILIBERTO ESTEVEZ RPA-C [facility] Medical 02/03/2021 12:00:00 AM EDT [facility] ([facility]) Filiberto Estevez, RPA-C: [address], [place] [address], Ph. Attender: FILIBERTO ESTEVEZ RPA-C [facility] Medical 02/03/2021 12:00:00 AM EDT [facility] ([facility]) Filiberto Estevez, RPA-C: [address], [place] [address], Ph. Attender: FILIBERTO ESTEVEZ RPA-C [facility] Medical 02/03/2021 12:00:00 AM EDT [facility] ([facility]) Filiberto Estevez, RPA-C: [address], [place] [address], Ph. Attender: FILIBERTO ESTEVEZ RPA-C [facility] Medical 01/17/2021 12:00:00 AM EDT [facility] ([facility]) Filiberto Estevez, RPA-C: [address], [place] [address], Ph. Attender: FILIBERTO ESTEVEZ RPA-C [facility] Medical 01/17/2021 12:00:00 AM EDT [facility] ([facility]) Filiberto Estevez RPA-C: [address], [place] [address], Ph. Attender: FILIBERTO LAI [facility] Medical 01/17/2021 12:00:00 AM EDT [facility] ([facility]) Filiberto Estevez RPA-C: [address], [place] [address], Ph. Attender: FILIBERTO LAI [facility] Medical 01/17/2021 12:00:00 AM EDT A[facility] ([facility]) Filiberto Estevez RPA-C: [address], [place] [address], Ph. Attender: FILIBERTO ADAMSC [facility] Medical 01/17/2021 12:00:00 AM EDT [facility] ([facility]) Outpatient Attender: Tanvi kidd 11/08/2020 04:05:00 PM EDT [facility] ([facility], [facility]) Aracelis Araujo MD: [address], [place] [address], Ph. Attender: Aracelis Araujo [facility] Medical 08/27/2020 12:00:00 AM EST [facility] ([facility]) Aracelis Araujo MD: [address], [place] [address], Ph. Attender: Aracelis Araujo [facility] Medical 08/27/2020 12:00:00 AM EST [facility] ([facility]) Aracelis Araujo MD: [address], [place] [address], Ph. Attender: Aracelis Araujo [facility] Medical 08/27/2020 12:00:00 AM EST [facility] ([facility]) Aracelis Araujo MD: [address], [place] [address], Ph. Attender: Aracelis Araujo [facility] Medical 08/27/2020 12:00:00 AM EST [facility] ([facility]) Aracelis Araujo MD: [address], [place] [address], Ph. Attender: Aracelis Araujo [facility] Medical 08/27/2020 12:00:00 AM EST [facility] ([facility]) Aracelis Araujo MD: [address], [place] [address], Ph. Attender: Aracelis Araujo [facility] Medical 08/27/2020 12:00:00 AM EST [facility] ([facility]) Gregg Lucio MD: [address] [place] [address], Ph. Attender: Gregg Lucio MD [facility] Medical 08/05/2020 12:00:00 AM EST AALIYAH ([facility]) Gregg Lucio MD: [address] [place] [address], Ph. Attender: Gregg Lucio MD [facility] Medical 08/05/2020 12:00:00 AM EST AALIYAH ([facility]) Gregg Lucio MD: [address] [place] [address], Ph. Attender: Gregg Lucio MD [facility] Medical 08/05/2020 12:00:00 AM EST AALIYAH ([facility]) Gregg Lucio MD: [address] [place] [address], Ph. Attender: Gregg Lucio MD [facility] Medical 08/05/2020 12:00:00 AM EST AALIYAH ([facility]) Gregg Lucio MD: [address] [place] [address], Ph. Attender: Gregg Lucio MD [facility] Medical 08/05/2020 12:00:00 AM EST AALIYAH ([facility]) Gregg Lucio MD: [address] [place] [address], Ph. Attender: Gregg Lucio MD [facility] Medical 08/05/2020 12:00:00 AM EST AALIYAH ([facility]) Gregg Lucio MD: [address] [place] [address], Ph. Attender: Gregg Lucio MD [facility] Medical 08/05/2020 12:00:00 AM EST AALIYAH ([facility]) Outpatient Attender: Martina kidd 07/10/2020 09:00:00 AM EST MEDENT ([facility]) Outpatient Attender: Shahida gipson 06/05/2020 02:00:00 PM EST MEDENT ([facility]) Outpatient Attender: FILIBERTO ESTEVEZ RPA-C [facility] 05/03/2020 10:42:03 AM EDT [facility] Outpatient Attender: FILIBERTO ADAMSC [facility] 05/03/2020 10:42:02 AM EDT [facility] Outpatient Attender: FILIBERTO ESTEVEZ RPA-C [facility] 05/03/2020 10:41:01 AM EDT [facility] Outpatient Attender: FILIBERTO ESTEVEZ RPA-C [facility] 05/03/2020 10:41:00 AM EDT [facility] Filiberto Estevez, RPA-C: [address], [place] [address], Ph. Attender: FILIBERTO ESTEVEZ RPA-C [facility] Medical 05/03/2020 12:00:00 AM EDT MCRAE ([facility]) Filiberto Estevez RPA-C: [address], [place] [address], Ph. Attender: FILIBERTO ESTEVEZ RPA-C [facility] Medical 05/03/2020 12:00:00 AM EDT [facility] ([facility]) Filiberto Estevez RPA-C: [address], [place] [address], Ph. Attender: FILIBERTO ESTEVEZ RPA-C [facility] Medical 05/03/2020 12:00:00 AM EDT AALIYAH ([facility]) Filiberto Estevez RPA-C: [address], [place] [address], Ph. Attender: FILIBERTO ESTEVEZ RPA-C [facility] Medical 05/03/2020 12:00:00 AM EDT AALIYAH ([facility]) Filiberto Estevez, RPA-C: [address], [place] [address], Ph. Attender: FILIBERTO ESTEVEZ RPA-C [facility] Medical 05/03/2020 12:00:00 AM EDT AALIYAH ([facility]) Filiberto Estevez RPA-C: [address], [place] [address], Ph. Attender: FILIBERTO LAI [facility] Medical 05/03/2020 12:00:00 AM EDT AALIYAH ([facility]) Filiberto Estevez RPA-C: [address], [place] [address], Ph. Attender: FILIBERTO LAI [facility] Medical 05/03/2020 12:00:00 AM EDT AALIYAH ([facility]) Filiberto Estevez RPA-C: [address], [place] [address], Ph. Attender: FILIBERTO LAI [facility] Medical 05/03/2020 12:00:00 AM EDT AALIYAH ([facility]) Outpatient Attender: FILIBERTO LAI [facility] 04/25/2020 11:41:00 AM EDT [facility] Outpatient Attender: SAMUEL henderson 04/10/2020 10:15:00 AM EDT MED[facility] ([facility]) Medications Medication Brand Name Start Date Product Form Dose Route Admi nistrative Instructions Pharmacy Instructions Status Indications Reaction Description Data Source(s) 800 mg 05/05/2021 12:00:00 AM EDT tablet 20 TAKE 1 TABLET BY MOUTH EVERY 6-8 HOUR TAKE 1 TABLET BY MOUTH EVERY 6-8 HOUR SOLD: 05/05/2021 [facility] Clindamycin 300 MG Oral Capsule CLINDAMYCIN HCL 05/05/2021 12:00 :00 AM EDT capsule 20 TAKE ONE CAPSULE BY MOUTH EVERY 6 HOURS TAKE ONE CAPSULE BY MOUTH EVERY 6 HOURS SOLD: 05/05/2021 [facility] 750 mg 05/01/2021 12:00:00 AM EDT tablet 5 TAKE ONE TABLET BY MOUTH EVERY DAY FOR 5 DAYS TAKE ONE TABLET BY MOUTH EVERY DAY FOR 5 DAYS SOLD: 05/01/2021 [facility] Clindamycin 300 MG Oral Capsule CLINDAMYCIN HCL 04/28/2021 12:00 :00 AM EDT capsule 28 TAKE ONE CAPSULE BY MOUTH EVERY 6 HOURS TAKE ONE CAPSULE BY MOUTH EVERY 6 HOURS SOLD: 04/28/2021 [facility] 800 mg 04/28/2021 12:00:00 AM EDT tablet 20 TAKE ONE TABLET BY MOUTH EVERY 6 TO 8 HOURS WITH FOOD TAKE ONE TABLET BY MOUTH EVERY 6 TO 8 HOURS WITH FOOD SOLD: 04/28/2021 [facility] 400 mg 04/14/2021 12:00:00 AM EDT capsule 60 TAKE ONE CAPSULE BY MOUTH TWICE A DAY NEEDED TAKE ONE CAPSULE BY MOUTH TWICE A DAY NEEDED SOLD: 04/14/2021 [facility] 5 mg 04/14/2021 12:00:00 AM EDT tablet 30 TAKE ONE TABLET BY MOUTH EVERY DAY TAKE ONE TABLET BY MOUTH EVERY DAY SOLD: 04/14/2021 [facility] Sutab Sutab 04/01/2021 12:00:00 AM EDT active MEDENT ([facility]) 200 mcg/actuation 03/27/2021 12:00:00 AM EDT blister with de vice 30 INHALE ONE PUFF BY MOUTH EVERY DAY INHALE ONE PUFF BY MOUTH EVERY DAY SOLD: 03/31/2021 [facility] 20 mg 02/11/2021 12:00:00 AM EDT tablet 10 TAKE TWO TABLETS BY MOUTH EVERY DAY TAKE TWO TABLETS BY MOUTH EVERY DAY SOLD: 02/11/2021 [facility] 10 mg 02/10/2021 12:00:00 AM EDT tablet 30 TAKE ONE TABLET BY MOUTH EVERY DAY TAKE ONE TABLET BY MOUTH EVERY DAY SOLD: 03/13/2021 [facility] 10 mg 02/10/2021 12:00:00 AM EDT tablet 30 TAKE ONE TABLET BY MOUTH EVERY DAY TAKE ONE TABLET BY MOUTH EVERY DAY SOLD: 02/11/2021 [facility] 10 mg 02/10/2021 12:00:00 AM EDT tablet 30 TAKE ONE TABLET BY MOUTH EVERY DAY TAKE ONE TABLET BY MOUTH EVERY DAY SOLD: 04/14/2021 [facility] Amoxicillin 875 MG / Clavulanate 125 MG Oral Tablet Am oxicillin/Clavulanate Potassium 02/07/2021 12:00:00 AM EDT ORAL active MEDENT ([facility]) benzonatate 200 MG Oral Capsule Benzonatate 02/07/2021 12:00:00 AM EDT active MEDENT ([facility]) 200 mg 02/07/2021 12:00:00 AM EDT capsule 30 TAKE ONE TABLET BY MOUTH EVERY 8 HOURS NEEDED FOR COUGH TAKE ONE TABLET BY MOUTH EVERY 8 HOURS A S NEEDED FOR COUGH SOLD: 02/07/2021 [facility] Amoxicillin 875 MG / Clavulanate 125 MG Oral Tablet 87 5-125 mg AMOXICILLIN/POTASSIUM CLAV 02/07/2021 12:00:00 AM EDT tablet 20 TAKE ONE TABLET BY MOUTH TWO TIMES A DAY FOR 10 DAYS TAKE ONE TABLET BY MOUTH TWO TIMES A DAY FOR 10 DAYS SOLD: 02/07/2021 [facility] 20 mg 02/04/2021 12:00:00 AM EDT tablet 5 TAKE ONE TABLET BY MOUTH EVERY DAY WITH MEALS FOR 5 DAYS TAKE ONE TABLET BY MOUTH EVERY DAY WITH MEALS FOR 5 DA YS SOLD: 02/07/2021 [facility] 40 mg 01/17/2021 12:00:00 AM EDT capsule,delayed release (DR/EC) 90 TAKE ONE CAPSULE BY MOUTH EVERY DAY TAKE ONE CAPSULE BY MOUTH EVERY DAY SOLD: 01/22/2021 [facility] 90 mcg/actuation 01/17/2021 12:00:00 AM EDT HFA aerosol inha ler 18 INHALE TWO PUFFS BY MOUTH EVERY 4 HOURS NEEDED FOR SHORTNESS OF BREATH OR WHEEZING INHALE TWO PUFFS BY MOUTH EVERY 4 HOURS NEEDED FOR SHORTNESS OF BREATH OR WHEEZING SOLD: 01/22/2021 [facility] 100 mcg/actuation 01/17/2021 12:00:00 AM EDT blister with de vice 30 INHALE ONE PUFF BY MOUTH EVERY DAY INHALE ONE PUFF BY MOUTH EVERY DAY SOLD: 02/25/2021 [facility] 100 mcg/actuation 01/17/2021 12:00:00 AM EDT blister with de vice 30 INHALE ONE PUFF BY MOUTH EVERY DAY INHALE ONE PUFF BY MOUTH EVERY DAY SOLD: 01/22/2021 [facility] 400 mg 12/27/2020 12:00:00 AM EDT capsule 60 TAKE ONE CAPSULE BY MOUTH TWICE A DAY NEEDED TAKE ONE CAPSULE BY MOUTH TWICE A DAY NEEDED SOLD: 12/30/2020 [facility] 400 mg 12/27/2020 12:00:00 AM EDT capsule 60 TAKE ONE CAPSULE BY MOUTH TWICE A DAY NEEDED TAKE ONE CAPSULE BY MOUTH TWICE A DAY NEEDED SOLD: 02/07/2021 [facility] B-12 Plus 1 tab by mouth daily 12/04/2020 12:00:00 AM EDT completed B-12 Plus AALIYAH ([facility]) Phenazopyridine hydrochloride 100 MG Oral Tablet [Pyridium] Pyridium 11/08/2020 12:00:00 AM EDT ORAL completed MEDENT ([facility]) Cephalexin 500 MG Oral Tablet Cephalexin 11/08/2020 12:00:00 AM EDT ORAL completed MEDENT ([facility]) 1 gram 08/30/2020 12:00:00 AM EST tablet 120 TAKE ONE TABLET BY MOUTH EVERY 6 HOURS TAKE ONE TABLET BY MOUTH EVERY 6 HOURS SOLD: 08/30/2020 [facility] 40 mg 08/30/2020 12:00:00 AM EST capsule,delayed release (DR/EC) 30 TAKE ONE CAPSULE BY MOUTH EVERY DAY TAKE ONE CAPSULE BY MOUTH EVERY DAY SOLD: 08/30/2020 [facility] 8 mg 08/27/2020 12:00:00 AM EST tablet,disintegrating [address] ONE TABLET UNDER THE TONGUE THREE TIMES A DAY PLACE ONE TABLET UNDER THE TONGUE THREE TIMES A DAY SOLD: 08/27/2020 [facility] 5-325 mg 08/21/2020 12:00:00 AM EST tablet 15 TAKE ONE TABLET BY MOUTH THREE TIMES A DAY NEEDED FOR PAIN MAXIMUM DAILY DOSE = THREE TABLETS TAKE ONE TABLET BY MOUTH THREE TIMES A DAY NEEDED FOR PAIN MAXIMUM DAILY DOSE = THREE TABLETS SOLD: 08/21/2020 [facility] 4 mg 08/21/2020 12:00:00 AM EST tablet,disintegrating 1 6 DISSOLVE ONE TABLET ON TONGUE EVERY 6 TO 8 HOURS NEEDED FOR NAUSEA AND VOMITING DISSOLVE ONE TABLET ON TONGUE EVERY 6 TO 8 HOURS NEEDED FOR NAUSEA AND VOMITING SOLD: 08/21/2020 [facility] Prednisone 20 MG Oral Tablet Prednisone 07/10/2020 12:00:00 AM EST completed MEDENT ([facility]) 20 mg 07/10/2020 12:00:00 AM EST tablet 15 TAKE ONE TABLET BY MOUTH THREE TIMES A DAY FOR 5 DAYS TAKE ONE TABLET BY MOUTH THREE TIMES A DAY FOR 5 DAYS SOLD: 07/10/2020 [facility] Oseltamivir 75 MG Oral Capsule Oseltamivir Phosphate 06/05/2020 12:00:00 AM EST ORAL completed MEDENT ([facility]) 75 mg 06/05/2020 12:00:00 AM EST capsule 10 TAKE ONE CAPSULE BY MOUTH TWICE A DAY FOR 5 DAYS TAKE ONE CAPSULE BY MOUTH TWICE A DAY FOR 5 DAYS SOLD: 06/05/2020 [facility] 200 mg 04/10/2020 12:00:00 AM EDT tablet 6 TAKE ONE TABLET BY MOUTH THREE TIMES A DAY AFTER MEALS FOR 2 DAYS TAKE ONE TABLET BY MOUTH THREE TIMES A D AY AFTER MEALS FOR 2 DAYS SOLD: 04/10/2020 [facility] 100 mg 04/10/2020 12:00:00 AM EDT capsule 10 TAKE ONE CAPSULE BY MOUTH TWICE A DAY FOR 5 DAYS WITH FOOD TAKE ONE CAPSULE BY MOUTH TWICE A DAY FO R 5 DAYS WITH FOOD SOLD: 04/10/2020 [facility] NITROFURANTOIN, MACROCRYSTALS 25 MG / Ni trofurantoin, Monohydrate 75 MG Oral Capsule [Macrobid] Macrobid 04/10/2020 12:00:00 AM EDT ORAL completed MEDENT ([facility]) Phenazopyridine hydrochloride 200 MG Oral Tablet [Pyridium] Pyridium 04/10/2020 12:00:00 AM EDT ORAL completed MEDENT ([facility]) 20 mg 02/27/2020 12:00:00 AM EDT capsule,delayed release (DR/EC) 30 TAKE ONE CAPSULE BY MOUTH EVERY MORNING ON AN EMPTY STOMACH WITH WATER TAKE ONE CAPSULE BY MOUTH EVERY MORNING ON AN EMPTY STOMACH WITH WATER SOLD: 03/21/2020 [facility] 20 mg 02/27/2020 12:00:00 AM EDT capsule,delayed release (DR/EC) 30 TAKE ONE CAPSULE BY MOUTH EVERY MORNING ON AN EMPTY STOMACH WITH WATER TAKE ONE CAPSULE BY MOUTH EVERY MORNING ON AN EMPTY STOMACH WITH WATER SOLD: 05/12/2020 [facility] 324 mg (38 mg iron) 02/23/2020 12:00:00 AM EDT tablet 30 TAKE ONE TABLET BY MOUTH EVERY DAY TAKE ONE TABLET BY MOUTH EVERY DAY SOLD: 04/10/2020 [facility] 400 mg 02/23/2020 12:00:00 AM EDT capsule 60 TAKE ONE CAPSULE BY MOUTH TWICE A DAY NEEDED TAKE ONE CAPSULE BY MOUTH TWICE A DAY NEEDED SOLD: 08/12/2020 [facility] 400 mg 02/23/2020 12:00:00 AM EDT capsule 60 TAKE ONE CAPSULE BY MOUTH TWICE A DAY NEEDED TAKE ONE CAPSULE BY MOUTH TWICE A DAY NEEDED SOLD: 04/10/2020 [facility] 400 mg 02/23/2020 12:00:00 AM EDT capsule 60 TAKE ONE CAPSULE BY MOUTH TWICE A DAY NEEDED TAKE ONE CAPSULE BY MOUTH TWICE A DAY NEEDED SOLD: 05/12/2020 [facility] 400 mg 02/23/2020 12:00:00 AM EDT capsule 60 TAKE ONE CAPSULE BY MOUTH TWICE A DAY NEEDED TAKE ONE CAPSULE BY MOUTH TWICE A DAY NEEDED SOLD: 11/18/2020 [facility] 400 mg 02/23/2020 12:00:00 AM EDT capsule 60 TAKE ONE CAPSULE BY MOUTH TWICE A DAY NEEDED TAKE ONE CAPSULE BY MOUTH TWICE A DAY NEEDED SOLD: 10/19/2020 [facility] 100 mcg/actuation 01/19/2020 12:00:00 AM EDT blister with de vice 30 INHALE ONE PUFF BY MOUTH EVERY DAY INHALE ONE PUFF BY MOUTH EVERY DAY SOLD: 07/10/2020 [facility] 10 mg 01/18/2020 12:00:00 AM EDT tablet 30 TAKE ONE TABLET BY MOUTH EVERY DAY TAKE ONE TABLET BY MOUTH EVERY DAY SOLD: 06/28/2020 [facility] 10 mg 01/18/2020 12:00:00 AM [...] ONE TABLET BY MOUTH EVERY DAY SOLD: 09/20/2020 [facility] 10 mg 01/18/2020 12:00:00 AM EDT tablet 30 TAKE ONE TABLET BY MOUTH EVERY DAY TAKE ONE TABLET BY MOUTH EVERY DAY SOLD: 10/28/2020 [facility] 10 mg 01/18/2020 12:00:00 AM EDT tablet 30 TAKE ONE TABLET BY MOUTH EVERY DAY TAKE ONE TABLET BY MOUTH EVERY DAY SOLD: 11/30/2020 [facility] 10 mg 01/18/2020 12:00:00 AM EDT tablet 30 TAKE ONE TABLET BY MOUTH EVERY DAY TAKE ONE TABLET BY MOUTH EVERY DAY SOLD: 01/06/2021 [facility] NITROFURANTOIN, MACROCRYSTALS 25 MG / Ni trofurantoin, Monohydrate 75 MG Oral Capsule nitrofurantoin monohydrate/macrocrystals 100 mg capsule nitrofurantoin monohydrate/macrocrystals 100 mg capsule completed nitrofurantoin, macrocrystals 25 MG / nitrofurantoin, monohydrate 75 MG Oral Capsule AALIYAH ([facility]) Omeprazole 20 MG Delayed Release Oral Ca psule omeprazole 20 mg capsule,delayed release TAKE ONE CAPSULE BY MOUTH EVERY MORNING ON AN EMPTY STOMACH WITH WATER omeprazole 20 mg capsule,delayed release TAKE ONE CAPSULE BY MOUTH EVERY MORNING ON AN EMPTY STOMACH WITH WATER comple ana omeprazole 20 MG Delayed Release Oral Capsule AALIYAH ([facility]) benzonatate 200 MG Oral Capsule benzonatate 200 mg cap yared benzonatate 200 mg capsule completed benzonatate 20 0 MG Oral Capsule [facility]YAH ([facility]) Amoxicillin 875 MG / Clavulanate 125 MG Oral Tablet amoxicillin 875 mg-potassium clavulanate 125 mg tablet amoxicillin 875 mg-potassium clavulanate 125 mg tablet completed amoxici llin 875 MG / clavulanate 125 MG Oral Tablet AALIYAH ([facility]) Cephalexin 500 MG Oral Capsule cephalexi n 500 mg capsule TAKE ONE CAPSULE BY MOUTH TWICE A DAY FOR 7 DAYS cephalexin 500 mg capsule TAKE ONE CAPSU LE BY MOUTH TWICE A DAY FOR 7 DAYS completed cephalexin 500 MG Oral Capsule AALIYAH ([facility]) cefdinir 300 MG Oral Capsule cefdinir 300 mg capsule cefdinir 30 0 mg capsule completed cefdinir 300 M G Oral Capsule AALIYAH ([facility]) Sulfamethoxazole 800 MG / Trimethoprim 1 60 MG Oral Tablet sulfamethoxazole 800 mg-trimethoprim 160 mg tablet sulfamethoxazole 800 mg-trimethoprim 160 mg tablet completed sulfame thoxazole 800 MG / trimethoprim 160 MG Oral Tablet AALIYAH ([facility]) Ondansetron 4 MG Disintegrating Oral Tab let ondansetron 4 mg disintegrating tablet DISSOLVE ONE TABLET ON TONGUE EVERY 6 TO 8 HOURS NEEDED FOR NAUSEA AND VOMITING ondansetron 4 mg disintegrating tablet D ISSOLVE ONE TABLET ON TONGUE EVERY 6 TO 8 HOURS NEEDED FOR NAUSEA AND VOMITING completed ondansetron 4 MG Disintegrating Oral Tablet [facility] ([facility]) Oseltamivir 75 MG Oral Capsule oseltamiv ir 75 mg capsule TAKE ONE CAPSULE BY MOUTH TWICE A DAY FOR 5 DAYS oseltamivir 75 mg capsule TAKE ONE CAPSU LE BY MOUTH TWICE A DAY FOR 5 DAYS completed oseltamivir 75 MG Oral Capsule [facility] ([facility]) Docusate Sodium 100 MG Oral Capsule [DOK] DOK 100 mg c apsule 1 TABLET PO PRN DOK 100 mg capsule 1 TABLET PO PRN comple ana docusate sodium 100 MG Oral Capsule [DOK] AALIYAH ([facility]) Oseltamivir 75 MG Oral Capsule oseltamiv ir 75 mg capsule TAKE ONE CAPSULE BY MOUTH TWICE A DAY FOR 5 DAYS oseltamivir 75 mg capsule TAKE ONE CAPSU LE BY MOUTH TWICE A DAY FOR 5 DAYS completed oseltamivir 75 MG Oral Capsule AALIYAH ([facility]) ferrous gluconate 324 MG Oral Tablet valorie erik gluconate 324 mg (38 mg iron) tablet ferrous gluconate 324 mg (38 mg iron) tablet completed ferrous gluconate 324 MG Oral Tablet AALIYAH ([facility]) gabapentin 300 MG Oral Capsule gabapentin 300 mg capsu le gabapentin 300 mg capsule completed gabapentin 300 MG Oral Capsule [facility] ([facility]) Omeprazole 20 MG Delayed Release Oral Ca psule omeprazole 20 mg capsule,delayed release TAKE ONE CAPSULE BY MOUTH EVERY MORNING ON AN EMPTY STOMACH WITH WATER omeprazole 20 mg capsule,delayed release TAKE ONE CAPSULE BY MOUTH EVERY MORNING ON AN EMPTY STOMACH WITH WATER comple ana omeprazole 20 MG Delayed Release Oral Capsule AALIYAH ([facility]) Prednisone 10 MG Oral Tablet prednisone 10 mg tablet prednisone 10 mg tablet completed prednisone 10 MG Oral Tablet [facility] ([facility]) Metronidazole 500 MG Oral Tablet metronidazole 500 mg tablet metronidazole 500 mg tablet completed metronidazol e 500 MG Oral Tablet AALIYAH ([facility]) cefdinir 300 MG Oral Capsule cefdinir 300 mg capsule cefdinir 30 0 mg capsule completed cefdinir 300 M G Oral Capsule [facility] ([facility]) cefdinir 300 MG Oral Capsule cefdinir 300 mg capsule cefdinir 30 0 mg capsule completed cefdinir 300 M G Oral Capsule [facility] ([facility]) Sulfamethoxazole 800 MG / Trimethoprim 1 60 MG Oral Tablet sulfamethoxazole 800 mg-trimethoprim 160 mg tablet sulfamethoxazole 800 mg-trimethoprim 160 mg tablet completed sulfame thoxazole 800 MG / trimethoprim 160 MG Oral Tablet [facility] ([facility]) cefdinir 300 MG Oral Capsule cefdinir 300 mg capsule cefdinir 30 0 mg capsule completed cefdinir 300 M G Oral Capsule [facility] ([facility]) Ondansetron 4 MG Disintegrating Oral Tab let ondansetron 4 mg disintegrating tablet DISSOLVE ONE TABLET ON TONGUE EVERY 6 TO 8 HOURS NEEDED FOR NAUSEA AND VOMITING ondansetron 4 mg disintegrating tablet D ISSOLVE ONE TABLET ON TONGUE EVERY 6 TO 8 HOURS NEEDED FOR NAUSEA AND VOMITING completed ondansetron 4 MG Disintegrating Oral Tablet [facility] ([facility]) Oseltamivir 75 MG Oral Capsule oseltamiv ir 75 mg capsule TAKE ONE CAPSULE BY MOUTH TWICE A DAY FOR 5 DAYS oseltamivir 75 mg capsule TAKE ONE CAPSU LE BY MOUTH TWICE A DAY FOR 5 DAYS completed oseltamivir 75 MG Oral Capsule AALIYAH ([facility]) Acetaminophen 325 MG / Hydrocodone Quan trate 5 MG Oral Tablet hydrocodone 5 mg- acetaminophen 325 mg tablet TAKE ONE TABLET BY MOUTH THREE TIMES A DAY NEEDED FOR PAIN MAXIMUM DAILY DOSE THREE TABLETS hydrocodone 5 mg-acetaminophen 325 mg tablet TAKE ONE TABLET BY MOUTH THREE TIMES A DAY NEEDED FOR PAIN MAXIMUM DAILY DOSE THREE TABLETS completed acetaminophen 325 MG / hydrocodone bitartrate 5 MG Oral Tablet AALIYAH ([facility]) Metronidazole 500 MG Oral Tablet metronidazole 500 mg tablet metronidazole 500 mg tablet completed metronidazol e 500 MG Oral Tablet [facility] ([facility]) gabapentin 300 MG Oral Capsule gabapentin 300 mg capsu le gabapentin 300 mg capsule completed gabapentin 300 MG Oral Capsule [facility] ([facility]) Amoxicillin 875 MG / Clavulanate 125 MG Oral Tablet amoxicillin 875 mg-potassium clavulanate 125 mg tablet amoxicillin 875 mg-potassium clavulanate 125 mg tablet completed amoxici llin 875 MG / clavulanate 125 MG Oral Tablet [facility] ([facility]) Acetaminophen 325 MG / Hydrocodone Quan trate 5 MG Oral Tablet hydrocodone 5 mg- acetaminophen 325 mg tablet TAKE ONE TABLET BY MOUTH THREE TIMES A DAY NEEDED FOR PAIN MAXIMUM DAILY DOSE THREE TABLETS hydrocodone 5 mg-acetaminophen 325 mg tablet TAKE ONE TABLET BY MOUTH THREE TIMES A DAY NEEDED FOR PAIN MAXIMUM DAILY DOSE THREE TABLETS completed acetaminophen 325 MG / hydrocodone bitartrate 5 MG Oral Tablet [facility] ([facility]) ferrous gluconate 324 MG Oral Tablet valorie erik gluconate 324 mg (38 mg iron) tablet ferrous gluconate 324 mg (38 mg iron) tablet completed ferrous gluconate 324 MG Oral Tablet [facility] ([facility]) Amoxicillin 875 MG / Clavulanate 125 MG Oral Tablet amoxicillin 875 mg-potassium clavulanate 125 mg tablet amoxicillin 875 mg-potassium clavulanate 125 mg tablet completed amoxici llin 875 MG / clavulanate 125 MG Oral Tablet [facility] ([facility]) benzonatate 200 MG Oral Capsule benzonatate 200 mg cap yared benzonatate 200 mg capsule completed benzonatate 20 0 MG Oral Capsule [facility] ([facility]) Azithromycin 250 MG Oral Tablet azithromycin 250 mg ta blet azithromycin 250 mg tablet completed azithromycin 25 0 MG Oral Tablet [facility]) Metronidazole 500 MG Oral Tablet metronidazole 500 mg tablet metronidazole 500 mg tablet completed metronidazol e 500 MG Oral Tablet [facility] ([facility]) Prednisone 10 MG Oral Tablet prednisone 10 mg tablet prednisone 10 mg tablet completed prednisone 10 MG Oral Tablet [facility]) benzonatate 200 MG Oral Capsule benzonatate 200 mg cap yared benzonatate 200 mg capsule completed benzonatate 20 0 MG Oral Capsule [facility] ([facility]) Ondansetron 8 MG Disintegrating Oral Tab let ondansetron [address] ONE TABLET UNDER THE TONGUE THREE TIMES A DAY ondansetron [address] ONE TABLET UNDER THE TONGUE THREE TIMES A DAY completed ondansetron 8 MG Dis integrating Oral Tablet [facility] ([facility]) NITROFURANTOIN, MACROCRYSTALS 25 MG / Ni trofurantoin, Monohydrate 75 MG Oral Capsule nitrofurantoin monohydrate/macrocrystals 100 mg capsule nitrofurantoin monohydrate/macrocrystals 100 mg capsule completed nitrofurantoin, macrocrystals 25 MG / nitrofurantoin, monohydrate 75 MG Oral Capsule [facility] ([facility]) benzonatate 200 MG Oral Capsule benzonat ate 200 mg capsule TAKE ONE TABLET BY MOUTH EVERY 8 HOURS NEEDED FOR COUGH benzonatate 200 mg capsule TAKE ONE TABLET BY MOUTH EVERY 8 HOURS NEEDED FOR COUGH completed benzonatate 200 MG Oral Capsule [facility] ([facility]) Acetaminophen 325 MG / Hydrocodone Quan trate 5 MG Oral Tablet hydrocodone 5 mg- acetaminophen 325 mg tablet TAKE ONE TABLET BY MOUTH THREE TIMES A DAY NEEDED FOR PAIN MAXIMUM DAILY DOSE THREE TABLETS hydrocodone 5 mg-acetaminophen 325 mg tablet TAKE ONE TABLET BY MOUTH THREE TIMES A DAY NEEDED FOR PAIN MAXIMUM DAILY DOSE THREE TABLETS completed acetaminophen 325 MG / hydrocodone bitartrate 5 MG Oral Tablet [facility] ([facility]) Azithromycin 250 MG Oral Tablet azithromycin 250 mg ta blet azithromycin 250 mg tablet completed azithromycin 25 0 MG Oral Tablet [facility] ([facility]) NITROFURANTOIN, MACROCRYSTALS 25 MG / Ni trofurantoin, Monohydrate 75 MG Oral Capsule nitrofurantoin monohydrate/macrocrystals 100 mg capsule nitrofurantoin monohydrate/macrocrystals 100 mg capsule completed nitrofurantoin, macrocrystals 25 MG / nitrofurantoin, monohydrate 75 MG Oral Capsule [facility] ([facility]) Omeprazole 20 MG Delayed Release Oral Ca psule omeprazole 20 mg capsule,delayed release TAKE ONE CAPSULE BY MOUTH EVERY MORNING ON AN EMPTY STOMACH WITH WATER omeprazole 20 mg capsule,delayed release TAKE ONE CAPSULE BY MOUTH EVERY MORNING ON AN EMPTY STOMACH WITH WATER comple ana omeprazole 20 MG Delayed Release Oral Capsule AALIYAH ([facility]) Azithromycin 250 MG Oral Tablet azithromycin 250 mg ta blet azithromycin 250 mg tablet completed azithromycin 25 0 MG Oral Tablet MCRAE ([facility]) Sucralfate 1000 MG Oral Tablet sucralfat e 1 gram tablet TAKE ONE TABLET BY MOUTH EVERY 6 HOURS sucralfate 1 gram tablet TAKE ONE TABLET BY MOUTH EVER Y 6 HOURS completed sucralfate 100 0 MG Oral Tablet MCRAE ([facility]) Ondansetron 8 MG Disintegrating Oral Tab let ondansetron [address] ONE TABLET UNDER THE TONGUE THREE TIMES A DAY ondansetron [address] ONE TABLET UNDER THE TONGUE THREE TIMES A DAY completed ondansetron 8 MG Dis integrating Oral Tablet MCRAE ([facility]) Metronidazole 500 MG Oral Tablet metronidazole 500 mg tablet metronidazole 500 mg tablet completed metronidazol e 500 MG Oral Tablet MCRAE ([facility]) Metronidazole 500 MG Oral Tablet metronidazole 500 mg tablet metronidazole 500 mg tablet completed metronidazol e 500 MG Oral Tablet MCRAE ([facility]) Acetaminophen 325 MG / Hydrocodone Quan trate 5 MG Oral Tablet hydrocodone 5 mg- acetaminophen 325 mg tablet TAKE ONE TABLET BY MOUTH THREE TIMES A DAY NEEDED FOR PAIN MAXIMUM DAILY DOSE THREE TABLETS hydrocodone 5 mg-acetaminophen 325 mg tablet TAKE ONE TABLET BY MOUTH THREE TIMES A DAY NEEDED FOR PAIN MAXIMUM DAILY DOSE THREE TABLETS completed acetaminophen 325 MG / hydrocodone bitartrate 5 MG Oral Tablet MCRAE ([facility]) Sulfamethoxazole 800 MG / Trimethoprim 1 60 MG Oral Tablet sulfamethoxazole 800 mg-trimethoprim 160 mg tablet sulfamethoxazole 800 mg-trimethoprim 160 mg tablet completed sulfame thoxazole 800 MG / trimethoprim 160 MG Oral Tablet MCRAE ([facility]) Docusate Sodium 100 MG Oral Capsule [DOK] DOK 100 mg c apsule 1 TABLET PO PRN DOK 100 mg capsule 1 TABLET PO PRN comple ana docusate sodium 100 MG Oral Capsule [DOK] AALIYAH ([facility]) Azithromycin 250 MG Oral Tablet azithromycin 250 mg ta blet azithromycin 250 mg tablet completed azithromycin 25 0 MG Oral Tablet MCRAE ([facility]) Ondansetron 4 MG Disintegrating Oral Tab let ondansetron 4 mg disintegrating tablet DISSOLVE ONE TABLET ON TONGUE EVERY 6 TO 8 HOURS NEEDED FOR NAUSEA AND VOMITING ondansetron 4 mg disintegrating tablet D ISSOLVE ONE TABLET ON TONGUE EVERY 6 TO 8 HOURS NEEDED FOR NAUSEA AND VOMITING completed ondansetron 4 MG Disintegrating Oral Tablet AALIYAH ([facility]) Ondansetron 8 MG Disintegrating Oral Tab let ondansetron [address] ONE TABLET UNDER THE TONGUE THREE TIMES A DAY ondansetron [address] ONE TABLET UNDER THE TONGUE THREE TIMES A DAY completed ondansetron 8 MG Dis integrating Oral Tablet AALIYAH ([facility]) Prednisone 10 MG Oral Tablet prednisone 10 mg tablet prednisone 10 mg tablet completed prednisone 10 MG Oral Tablet MCRAE ([facility]) Sucralfate 1000 MG Oral Tablet sucralfat e 1 gram tablet TAKE ONE TABLET BY MOUTH EVERY 6 HOURS sucralfate 1 gram tablet TAKE ONE TABLET BY MOUTH EVER Y 6 HOURS completed sucralfate 100 0 MG Oral Tablet AALIYAH ([facility]) Oseltamivir 75 MG Oral Capsule oseltamiv ir 75 mg capsule TAKE ONE CAPSULE BY MOUTH TWICE A DAY FOR 5 DAYS oseltamivir 75 mg capsule TAKE ONE CAPSU LE BY MOUTH TWICE A DAY FOR 5 DAYS completed oseltamivir 75 MG Oral Capsule AALIYAH ([facility]) Ondansetron 4 MG Disintegrating Oral Tab let ondansetron 4 mg disintegrating tablet DISSOLVE ONE TABLET ON TONGUE EVERY 6 TO 8 HOURS NEEDED FOR NAUSEA AND VOMITING ondansetron 4 mg disintegrating tablet D ISSOLVE ONE TABLET ON TONGUE EVERY 6 TO 8 HOURS NEEDED FOR NAUSEA AND VOMITING completed ondansetron 4 MG Disintegrating Oral Tablet AALIYAH ([facility]) gabapentin 300 MG Oral Capsule gabapentin 300 mg capsu le gabapentin 300 mg capsule completed gabapentin 300 MG Oral Capsule AALIYAH ([facility]) Cephalexin 500 MG Oral Capsule cephalexi n 500 mg capsule TAKE ONE CAPSULE BY MOUTH TWICE A DAY FOR 7 DAYS cephalexin 500 mg capsule TAKE ONE CAPSU LE BY MOUTH TWICE A DAY FOR 7 DAYS completed cephalexin 500 MG Oral Capsule AALIYAH ([facility]) Azithromycin 250 MG Oral Tablet azithromycin 250 mg ta blet azithromycin 250 mg tablet completed azithromycin 25 0 MG Oral Tablet AALIYAH ([facility]) ferrous gluconate 324 MG Oral Tablet valorie erik gluconate 324 mg (38 mg iron) tablet ferrous gluconate 324 mg (38 mg iron) tablet completed ferrous gluconate 324 MG Oral Tablet AALIYAH ([facility]) Phenazopyridine hydrochloride 200 MG Oral Tablet phena zopyridine 200 mg tablet phenazopyridine 200 mg tablet complete d phenazopyridine hydrochloride 200 MG Oral Tablet AALIYAH ([facility]) valacyclovir 1000 MG Oral Tablet valacyclovir 1 gram t ablet valacyclovir 1 gram tablet completed valacyclovir 10 00 MG Oral Tablet AALIYAH ([facility]) Ondansetron 4 MG Disintegrating Oral Tab let ondansetron 4 mg disintegrating tablet DISSOLVE ONE TABLET ON TONGUE EVERY 6 TO 8 HOURS NEEDED FOR NAUSEA AND VOMITING ondansetron 4 mg disintegrating tablet D ISSOLVE ONE TABLET ON TONGUE EVERY 6 TO 8 HOURS NEEDED FOR NAUSEA AND VOMITING completed ondansetron 4 MG Disintegrating Oral Tablet MCRAE ([facility]) Sucralfate 1000 MG Oral Tablet sucralfat e 1 gram tablet TAKE ONE TABLET BY MOUTH EVERY 6 HOURS sucralfate 1 gram tablet TAKE ONE TABLET BY MOUTH EVER Y 6 HOURS completed sucralfate 100 0 MG Oral Tablet AALIYAH ([facility]) benzonatate 200 MG Oral Capsule benzonatate 200 mg cap yared benzonatate 200 mg capsule completed benzonatate 20 0 MG Oral Capsule MCRAE ([facility]) Cephalexin 500 MG Oral Capsule cephalexi n 500 mg capsule TAKE ONE CAPSULE BY MOUTH TWICE A DAY FOR 7 DAYS cephalexin 500 mg capsule TAKE ONE CAPSU LE BY MOUTH TWICE A DAY FOR 7 DAYS completed cephalexin 500 MG Oral Capsule AALIYAH ([facility]) gabapentin 300 MG Oral Capsule gabapentin 300 mg capsu le gabapentin 300 mg capsule completed gabapentin 300 MG Oral Capsule AALIYAH ([facility]) Metronidazole 500 MG Oral Tablet metronidazole 500 mg tablet metronidazole 500 mg tablet completed metronidazol e 500 MG Oral Tablet AALIYAH ([facility]) valacyclovir 1000 MG Oral Tablet valacyclovir 1 gram t ablet valacyclovir 1 gram tablet completed valacyclovir 10 00 MG Oral Tablet AALIYAH ([facility]) Prednisone 10 MG Oral Tablet prednisone 10 mg tablet prednisone 10 mg tablet completed prednisone 10 MG Oral Tablet AALIYAH ([facility]) Cephalexin 500 MG Oral Capsule cephalexi n 500 mg capsule TAKE ONE CAPSULE BY MOUTH TWICE A DAY FOR 7 DAYS cephalexin 500 mg capsule TAKE ONE CAPSU LE BY MOUTH TWICE A DAY FOR 7 DAYS completed cephalexin 500 MG Oral Capsule AALIYAH ([facility]) Prednisone 20 MG Oral Tablet prednisone 20 mg tablet TAKE ONE TABLET BY MOUTH THREE TIMES A DAY FOR 5 DAYS prednisone 20 mg tablet TAKE ONE TABLET BY MOUTH THREE TIMES A DAY FOR 5 DAYS completed prednisone 20 MG Oral Tablet AALIYAH ([facility]) NITROFURANTOIN, MACROCRYSTALS 25 MG / Ni trofurantoin, Monohydrate 75 MG Oral Capsule nitrofurantoin monohydrate/macrocrystals 100 mg capsule nitrofurantoin monohydrate/macrocrystals 100 mg capsule completed nitrofurantoin, macrocrystals 25 MG / nitrofurantoin, monohydrate 75 MG Oral Capsule MCRAE ([facility]) cefdinir 300 MG Oral Capsule cefdinir 300 mg capsule cefdinir 30 0 mg capsule completed cefdinir 300 M G Oral Capsule MCRAE ([facility]) Docusate Sodium 100 MG Oral Capsule [DOK] DOK 100 mg c apsule 1 TABLET PO PRN DOK 100 mg capsule 1 TABLET PO PRN comple ana docusate sodium 100 MG Oral Capsule [DOK] MCRAE ([facility]) Amoxicillin 875 MG / Clavulanate 125 MG Oral Tablet amoxicillin 875 mg-potassium clavulanate 125 mg tablet amoxicillin 875 mg-potassium clavulanate 125 mg tablet completed amoxici llin 875 MG / clavulanate 125 MG Oral Tablet AALIYAH ([facility]) Acetaminophen 325 MG / Hydrocodone Quan trate 5 MG Oral Tablet hydrocodone 5 mg- acetaminophen 325 mg tablet TAKE ONE TABLET BY MOUTH THREE TIMES A DAY NEEDED FOR PAIN MAXIMUM DAILY DOSE THREE TABLETS hydrocodone 5 mg-acetaminophen 325 mg tablet TAKE ONE TABLET BY MOUTH THREE TIMES A DAY NEEDED FOR PAIN MAXIMUM DAILY DOSE THREE TABLETS completed acetaminophen 325 MG / hydrocodone bitartrate 5 MG Oral Tablet MCRAE ([facility]) Azithromycin 250 MG Oral Tablet azithromycin 250 mg ta blet azithromycin 250 mg tablet completed azithromycin 25 0 MG Oral Tablet MCRAE ([facility]) Ondansetron 4 MG Disintegrating Oral Tab let ondansetron 4 mg disintegrating tablet DISSOLVE ONE TABLET ON TONGUE EVERY 6 TO 8 HOURS NEEDED FOR NAUSEA AND VOMITING ondansetron 4 mg disintegrating tablet D ISSOLVE ONE TABLET ON TONGUE EVERY 6 TO 8 HOURS NEEDED FOR NAUSEA AND VOMITING completed ondansetron 4 MG Disintegrating Oral Tablet MCRAE ([facility]) Phenazopyridine hydrochloride 100 MG Ora l Tablet phenazopyridine 100 mg tablet TAKE ONE TABLET BY MOUTH TWICE A DAY WITH FOOD FOR 2 DAYS phenazopyridine 100 mg tablet TAKE ONE TABLET BY MOUTH TWICE A DAY WITH FOOD FOR 2 DAYS completed phenazopyridine hydrochloride 10 0 MG Oral Tablet MCRAE ([facility]) NITROFURANTOIN, MACROCRYSTALS 25 MG / Ni trofurantoin, Monohydrate 75 MG Oral Capsule nitrofurantoin monohydrate/macrocrystals 100 mg capsule nitrofurantoin monohydrate/macrocrystals 100 mg capsule completed nitrofurantoin, macrocrystals 25 MG / nitrofurantoin, monohydrate 75 MG Oral Capsule MCRAE ([facility]) valacyclovir 1000 MG Oral Tablet valacyclovir 1 gram t ablet valacyclovir 1 gram tablet completed valacyclovir 10 00 MG Oral Tablet MCRAE ([facility]) cefdinir 300 MG Oral Capsule cefdinir 300 mg capsule cefdinir 30 0 mg capsule completed cefdinir 300 M G Oral Capsule MCRAE ([facility]) valacyclovir 1000 MG Oral Tablet valacyclovir 1 gram t ablet valacyclovir 1 gram tablet completed valacyclovir 10 00 MG Oral Tablet MCRAE ([facility]) Prednisone 10 MG Oral Tablet prednisone 10 mg tablet prednisone 10 mg tablet completed prednisone 10 MG Oral Tablet MCRAE ([facility]) gabapentin 300 MG Oral Capsule gabapentin 300 mg capsu le gabapentin 300 mg capsule completed gabapentin 300 MG Oral Capsule MCRAE ([facility]) gabapentin 300 MG Oral Capsule gabapentin 300 mg capsu le gabapentin 300 mg capsule completed gabapentin 300 MG Oral Capsule MCRAE ([facility]) Prednisone 20 MG Oral Tablet prednisone 20 mg tablet TAKE ONE TABLET BY MOUTH THREE TIMES A DAY FOR 5 DAYS prednisone 20 mg tablet TAKE ONE TABLET BY MOUTH THREE TIMES A DAY FOR 5 DAYS completed prednisone 20 MG Oral Tablet MCRAE ([facility]) Oseltamivir 75 MG Oral Capsule oseltamiv ir 75 mg capsule TAKE ONE CAPSULE BY MOUTH TWICE A DAY FOR 5 DAYS oseltamivir 75 mg capsule TAKE ONE CAPSU LE BY MOUTH TWICE A DAY FOR 5 DAYS completed oseltamivir 75 MG Oral Capsule MCRAE ([facility]) Phenazopyridine hydrochloride 200 MG Oral Tablet phena zopyridine 200 mg tablet phenazopyridine 200 mg tablet complete d phenazopyridine hydrochloride 200 MG Oral Tablet MCRAE ([facility]) ferrous gluconate 324 MG Oral Tablet valorie erik gluconate 324 mg (38 mg iron) tablet ferrous gluconate 324 mg (38 mg iron) tablet completed ferrous gluconate 324 MG Oral Tablet MCRAE ([facility]) fluticasone furoate 0.1 MG/ACTUAT Dry Po wder Inhaler Arnuity Ellipta 100 mcg/actuation powder for inhalation INHALE ONE PUFF BY MOUTH EVERY DAY Arnuity Ellipta 100 mcg/actuation powder for inhalation INHALE ONE PUFF BY MOUTH EVERY DAY completed flutica sone furoate 0.1 MG/ACTUAT Dry Powder Inhaler MCRAE ([facility]) Phenazopyridine hydrochloride 100 MG Ora l Tablet phenazopyridine 100 mg tablet TAKE ONE TABLET BY MOUTH TWICE A DAY WITH FOOD FOR 2 DAYS phenazopyridine 100 mg tablet TAKE ONE TABLET BY MOUTH TWICE A DAY WITH FOOD FOR 2 DAYS completed phenazopyridine hydrochloride 10 0 MG Oral Tablet MCRAE ([facility]) Docusate Sodium 100 MG Oral Capsule [DOK] DOK 100 mg c apsule 1 TABLET PO PRN DOK 100 mg capsule 1 TABLET PO PRN comple ana docusate sodium 100 MG Oral Capsule [DOK] MCRAE ([facility]) gabapentin 300 MG Oral Capsule gabapentin 300 mg capsu le gabapentin 300 mg capsule completed gabapentin 300 MG Oral Capsule MCRAE ([facility]) Sulfamethoxazole 800 MG / Trimethoprim 1 60 MG Oral Tablet sulfamethoxazole 800 mg-trimethoprim 160 mg tablet sulfamethoxazole 800 mg-trimethoprim 160 mg tablet completed sulfame thoxazole 800 MG / trimethoprim 160 MG Oral Tablet MCRAE ([facility]) NITROFURANTOIN, MACROCRYSTALS 25 MG / Ni trofurantoin, Monohydrate 75 MG Oral Capsule nitrofurantoin monohydrate/macrocrystals 100 mg capsule nitrofurantoin monohydrate/macrocrystals 100 mg capsule completed nitrofurantoin, macrocrystals 25 MG / nitrofurantoin, monohydrate 75 MG Oral Capsule AALIYAH ([facility]) Phenazopyridine hydrochloride 200 MG Oral Tablet phena zopyridine 200 mg tablet phenazopyridine 200 mg tablet complete d phenazopyridine hydrochloride 200 MG Oral Tablet AALIYAH ([facility]) Omeprazole 20 MG Delayed Release Oral Ca psule omeprazole 20 mg capsule,delayed release TAKE ONE CAPSULE BY MOUTH EVERY MORNING ON AN EMPTY STOMACH WITH WATER omeprazole 20 mg capsule,delayed release TAKE ONE CAPSULE BY MOUTH EVERY MORNING ON AN EMPTY STOMACH WITH WATER comple ana omeprazole 20 MG Delayed Release Oral Capsule AALIYAH ([facility]) Sulfamethoxazole 800 MG / Trimethoprim 1 60 MG Oral Tablet sulfamethoxazole 800 mg-trimethoprim 160 mg tablet sulfamethoxazole 800 mg-trimethoprim 160 mg tablet completed sulfame thoxazole 800 MG / trimethoprim 160 MG Oral Tablet MCRAE ([facility]) Phenazopyridine hydrochloride 100 MG Ora l Tablet phenazopyridine 100 mg tablet TAKE ONE TABLET BY MOUTH TWICE A DAY WITH FOOD FOR 2 DAYS phenazopyridine 100 mg tablet TAKE ONE TABLET BY MOUTH TWICE A DAY WITH FOOD FOR 2 DAYS completed phenazopyridine hydrochloride 10 0 MG Oral Tablet MCRAE ([facility]) ferrous gluconate 324 MG Oral Tablet valorie erik gluconate 324 mg (38 mg iron) tablet ferrous gluconate 324 mg (38 mg iron) tablet completed ferrous gluconate 324 MG Oral Tablet MCRAE ([facility]) Sucralfate 1000 MG Oral Tablet sucralfat e 1 gram tablet TAKE ONE TABLET BY MOUTH EVERY 6 HOURS sucralfate 1 gram tablet TAKE ONE TABLET BY MOUTH EVER Y 6 HOURS completed sucralfate 100 0 MG Oral Tablet MCRAE ([facility]) Phenazopyridine hydrochloride 100 MG Ora l Tablet phenazopyridine 100 mg tablet TAKE ONE TABLET BY MOUTH TWICE A DAY WITH FOOD FOR 2 DAYS phenazopyridine 100 mg tablet TAKE ONE TABLET BY MOUTH TWICE A DAY WITH FOOD FOR 2 DAYS completed phenazopyridine hydrochloride 10 0 MG Oral Tablet MCRAE ([facility]) valacyclovir 1000 MG Oral Tablet valacyclovir 1 gram t ablet valacyclovir 1 gram tablet completed valacyclovir 10 00 MG Oral Tablet MCRAE ([facility]) Omeprazole 20 MG Delayed Release Oral Ca psule omeprazole 20 mg capsule,delayed release TAKE ONE CAPSULE BY MOUTH EVERY MORNING ON AN EMPTY STOMACH WITH WATER omeprazole 20 mg capsule,delayed release TAKE ONE CAPSULE BY MOUTH EVERY MORNING ON AN EMPTY STOMACH WITH WATER comple ana omeprazole 20 MG Delayed Release Oral Capsule MCRAE ([facility]) Metronidazole 500 MG Oral Tablet metronidazole 500 mg tablet metronidazole 500 mg tablet completed metronidazol e 500 MG Oral Tablet MCRAE ([facility]) cefdinir 300 MG Oral Capsule cefdinir 300 mg capsule cefdinir 30 0 mg capsule completed cefdinir 300 M G Oral Capsule MCRAE ([facility]) Prednisone 10 MG Oral Tablet prednisone 10 mg tablet prednisone 10 mg tablet completed prednisone 10 MG Oral Tablet MCRAE ([facility]) Ondansetron 8 MG Disintegrating Oral Tab let ondansetron [address] ONE TABLET UNDER THE TONGUE THREE TIMES A DAY ondansetron [address] ONE TABLET UNDER THE TONGUE THREE TIMES A DAY completed ondansetron 8 MG Dis integrating Oral Tablet MCRAE ([facility]) Amoxicillin 875 MG / Clavulanate 125 MG Oral Tablet amoxicillin 875 mg-potassium clavulanate 125 mg tablet TAKE ONE TABLET BY MOUTH TWO TIMES A DAY FOR 10 DAYS amoxicillin 875 mg-potassium clavulanate 125 mg tablet TAKE ONE TABLET BY MOUTH TWO TIMES A DAY FOR 10 DAYS completed amoxicillin 875 MG / clavulanate 125 MG Oral Tablet MCRAE ([facility]) Phenazopyridine hydrochloride 200 MG Oral Tablet phena zopyridine 200 mg tablet phenazopyridine 200 mg tablet complete d phenazopyridine hydrochloride 200 MG Oral Tablet MCRAE ([facility]) valacyclovir 1000 MG Oral Tablet valacyclovir 1 gram t ablet valacyclovir 1 gram tablet completed valacyclovir 10 00 MG Oral Tablet MCRAE ([facility]) cefdinir 300 MG Oral Capsule cefdinir 300 mg capsule cefdinir 30 0 mg capsule completed cefdinir 300 M G Oral Capsule MCRAE ([facility]) Cephalexin 500 MG Oral Capsule cephalexi n 500 mg capsule TAKE ONE CAPSULE BY MOUTH TWICE A DAY FOR 7 DAYS cephalexin 500 mg capsule TAKE ONE CAPSU LE BY MOUTH TWICE A DAY FOR 7 DAYS completed cephalexin 500 MG Oral Capsule MCRAE ([facility]) valacyclovir 1000 MG Oral Tablet valacyclovir 1 gram t ablet valacyclovir 1 gram tablet completed valacyclovir 10 00 MG Oral Tablet AALIYAH ([facility]) valacyclovir 1000 MG Oral Tablet valacyclovir 1 gram t ablet valacyclovir 1 gram tablet completed valacyclovir 10 00 MG Oral Tablet MCRAE ([facility]) Sucralfate 1000 MG Oral Tablet sucralfat e 1 gram tablet TAKE ONE TABLET BY MOUTH EVERY 6 HOURS sucralfate 1 gram tablet TAKE ONE TABLET BY MOUTH EVER Y 6 HOURS completed sucralfate 100 0 MG Oral Tablet MCRAE ([facility]) NITROFURANTOIN, MACROCRYSTALS 25 MG / Ni trofurantoin, Monohydrate 75 MG Oral Capsule nitrofurantoin monohydrate/macrocrystals 100 mg capsule nitrofurantoin monohydrate/macrocrystals 100 mg capsule completed nitrofurantoin, macrocrystals 25 MG / nitrofurantoin, monohydrate 75 MG Oral Capsule MCRAE ([facility]) Phenazopyridine hydrochloride 200 MG Oral Tablet phena zopyridine 200 mg tablet phenazopyridine 200 mg tablet complete d phenazopyridine hydrochloride 200 MG Oral Tablet AALIYAH ([facility]) Docusate Sodium 100 MG Oral Capsule [DOK] DOK 100 mg c apsule 1 TABLET PO PRN DOK 100 mg capsule 1 TABLET PO PRN comple ana docusate sodium 100 MG Oral Capsule [DOK] MCRAE ([facility]) Sulfamethoxazole 800 MG / Trimethoprim 1 60 MG Oral Tablet sulfamethoxazole 800 mg-trimethoprim 160 mg tablet sulfamethoxazole 800 mg-trimethoprim 160 mg tablet completed sulfame thoxazole 800 MG / trimethoprim 160 MG Oral Tablet AALIYAH ([facility]) Sulfamethoxazole 800 MG / Trimethoprim 1 60 MG Oral Tablet sulfamethoxazole 800 mg-trimethoprim 160 mg tablet sulfamethoxazole 800 mg-trimethoprim 160 mg tablet completed sulfame thoxazole 800 MG / trimethoprim 160 MG Oral Tablet AALIYAH ([facility]) gabapentin 300 MG Oral Capsule gabapentin 300 mg capsu le gabapentin 300 mg capsule completed gabapentin 300 MG Oral Capsule MCRAE ([facility]) Phenazopyridine hydrochloride 200 MG Oral Tablet phena zopyridine 200 mg tablet phenazopyridine 200 mg tablet complete d phenazopyridine hydrochloride 200 MG Oral Tablet AALIYAH ([facility]) Prednisone 10 MG Oral Tablet prednisone 10 mg tablet prednisone 10 mg tablet completed prednisone 10 MG Oral Tablet AALIYAH ([facility]) Sulfamethoxazole 800 MG / Trimethoprim 1 60 MG Oral Tablet sulfamethoxazole 800 mg-trimethoprim 160 mg tablet sulfamethoxazole 800 mg-trimethoprim 160 mg tablet completed sulfame thoxazole 800 MG / trimethoprim 160 MG Oral Tablet AALIYAH ([facility]) Omeprazole 20 MG Delayed Release Oral Ca psule omeprazole 20 mg capsule,delayed release TAKE ONE CAPSULE BY MOUTH EVERY MORNING ON AN EMPTY STOMACH WITH WATER omeprazole 20 mg capsule,delayed release TAKE ONE CAPSULE BY MOUTH EVERY MORNING ON AN EMPTY STOMACH WITH WATER comple ana omeprazole 20 MG Delayed Release Oral Capsule MCRAE ([facility]) Phenazopyridine hydrochloride 200 MG Oral Tablet phena zopyridine 200 mg tablet phenazopyridine 200 mg tablet complete d phenazopyridine hydrochloride 200 MG Oral Tablet MCRAE ([facility]) Prednisone 20 MG Oral Tablet prednisone 20 mg tablet TAKE TWO TABLETS BY MOUTH EVERY DAY prednisone 20 mg tablet TAKE TWO TABLETS BY MOUTH EVERY DAY completed prednisone 20 MG Oral Tablet MCRAE ([facility]) Phenazopyridine hydrochloride 200 MG Oral Tablet phena zopyridine 200 mg tablet phenazopyridine 200 mg tablet complete d phenazopyridine hydrochloride 200 MG Oral Tablet MCRAE ([facility]) Phenazopyridine hydrochloride 100 MG Ora l Tablet phenazopyridine 100 mg tablet TAKE ONE TABLET BY MOUTH TWICE A DAY WITH FOOD FOR 2 DAYS phenazopyridine 100 mg tablet TAKE ONE TABLET BY MOUTH TWICE A DAY WITH FOOD FOR 2 DAYS completed phenazopyridine hydrochloride 10 0 MG Oral Tablet AALIYAH ([facility]) Prednisone 10 MG Oral Tablet prednisone 10 mg tablet prednisone 10 mg tablet completed prednisone 10 MG Oral Tablet AALIYAH ([facility]) NITROFURANTOIN, MACROCRYSTALS 25 MG / Ni trofurantoin, Monohydrate 75 MG Oral Capsule nitrofurantoin monohydrate/macrocrystals 100 mg capsule nitrofurantoin monohydrate/macrocrystals 100 mg capsule completed nitrofurantoin, macrocrystals 25 MG / nitrofurantoin, monohydrate 75 MG Oral Capsule AALIYAH ([facility]) Metronidazole 500 MG Oral Tablet metronidazole 500 mg tablet metronidazole 500 mg tablet completed metronidazol e 500 MG Oral Tablet AALIYAH ([facility]) Azithromycin 250 MG Oral Tablet azithromycin 250 mg ta blet azithromycin 250 mg tablet completed azithromycin 25 0 MG Oral Tablet AALIYAH ([facility]) Oseltamivir 75 MG Oral Capsule oseltamiv ir 75 mg capsule TAKE ONE CAPSULE BY MOUTH TWICE A DAY FOR 5 DAYS oseltamivir 75 mg capsule TAKE ONE CAPSU LE BY MOUTH TWICE A DAY FOR 5 DAYS completed oseltamivir 75 MG Oral Capsule AALIYAH ([facility]) Ondansetron 8 MG Disintegrating Oral Tab let ondansetron [address] ONE TABLET UNDER THE TONGUE THREE TIMES A DAY ondansetron [address] ONE TABLET UNDER THE TONGUE THREE TIMES A DAY completed ondansetron 8 MG Dis integrating Oral Tablet AALIYAH ([facility]) Azithromycin 250 MG Oral Tablet azithromycin 250 mg ta blet azithromycin 250 mg tablet completed azithromycin 25 0 MG Oral Tablet AALIYAH ([facility]) Insurance Providers Payer name Policy type / Coverage type Policy ID Covered alliance party ID Covered [employer] party's relationship to miller Policy [place] Plan Information [place] [facility]) Workers Compensation [id number] Self [id number] [place] [facility] () Workers Compensation [id number] Self [id number] Medicaid [place] Medigap Part B [id number] Self [id number] [facility] Health Maintenance Organization (HMO) [id number] Self [id number] [facility] Health Maintenance Organization (HMO) [id number] Self [id number] [facility] Community Plan Commercial [id number] Self [id number] Medicaid S [id number] S [id number] [facility] [id number] SP [id number] Managed Care - Community Plan [facility] P [id number] S [id number] Medicaid S [id number] S [id number] [facility] Community Plan Medigap Part B [id number] Self [id number] Managed Care - [facility] Community Plan P [id number] S [id number] [facility] Community Plan Medigap Part B [id number] Self [id number] Managed Care - Community Plan [facility] P [id number] S [id number] Managed Care - [facility] Community Plan P [id number] S [id number] [facility] [id number] [id number] 18 [id number] [facility](MCAID) O [id number] S [id number] EMEDNY [id number] SP [id number] [facility] [id number] SP [id number] MEDICAID [id number] SP [id number] [facility] [id number] SP [id number] [facility] [id number] SP [id number] SELF PAY O UNAVAILABLE [id number] S UNAVAILA BLE [place] NO FAULT UNAVAILABLE SP UNAVAILABLE MEDICAID [id number] SP [id number] [facility] [id number] SP [id number] Problems, Conditions, and Diagnoses Code Display Name Description Problem Type Effective Dates Data Source(s) Z8701 Personal history of pneumonia (recurrent ) Personal history of pneumonia (recurrent) Diagnosis 02/10/2021 08:49:00 PM EDT [facility] [id number] Nicotine dependence, cigarettes, uncompl icated Nicotine dependence, cigarettes, uncomplicated Diagnosis 02/10/2021 08:49:00 PM EDT [facility] J4521 Mild intermittent asthma with (acute) ex acerbation Mild intermittent asthma with (acute) exacerbation Diagnosis 02/10/2021 08:49:00 PM EDT [facility] J209 Acute bronchitis, unspecified Acute bronchitis, unspec ified Diagnosis 02/10/2021 08:49:00 PM EDT [facility] R0789 Other chest pain Other chest pain Diagnosis 02/10/2021 08 :49:00 PM EDT [facility] [id number] Hyperlipidemia Hyperlipidemia Problem 03/27/2021 12:00: 00 AM EDT MCRAE ([facility]) [id number] Abdominal pain Abdominal pain Problem 08/29/2020 12:00: 00 AM EST MEDENT ([facility]) [id number] Finding of esophagus Finding of Esophagus Problem 02/23/2020 12:00:00 AM EDT - 03/27/2021 12:00:00 AM EDT AALIYAH ([facility]) [id number] SNOMED CT Concept SNOMED CT Concept Problem 01/17 12:00:00 AM EDT - 05/03/2020 12:00:00 AM EDT AALIYAH ([facility]) [id number] SNOMED CT Concept SNOMED CT Concept Problem 01/17 12:00:00 AM EDT - 05/03/2020 12:00:00 AM EDT AALIYAH ([facility]) [id number] SNOMED CT Concept SNOMED CT Concept Problem 01/17 12:00:00 AM EDT - 05/03/2020 12:00:00 AM EDT AALIYAH ([facility]) [id number] SNOMED CT Concept SNOMED CT Concept Problem 01/17 12:00:00 AM EDT - 05/03/2020 12:00:00 AM EDT AALIYAH ([facility]) 370584959 SNOMED CT Concept SNOMED CT Concept Problem 01/17 12:00:00 AM EDT - 05/03/2020 12:00:00 AM EDT AALIYAH ([facility]) [id number] SNOMED CT Concept SNOMED CT Concept Problem 01/17 12:00:00 AM EDT - 05/03/2020 12:00:00 AM EDT AALIYAH ([facility]) 509663565 SNOMED CT Concept SNOMED CT Concept Problem 01/17 12:00:00 AM EDT - 05/03/2020 12:00:00 AM EDT AALIYAH ([facility]) 761948612 SNOMED CT Concept SNOMED CT Concept Problem 01/17 12:00:00 AM EDT - 05/03/2020 12:00:00 AM EDT AALIYAH ([facility]) 547082435 Finding of neck region Finding of Neck Region Problem 11/10/2016 12:00:00 AM EDT - 03/27/2021 12:00:00 AM EDT AALIYAH ([facility]) [id number] Clinical finding Clinical Finding Problem 017 12:00:00 AM EDT - 05/03/2020 12:00:00 AM EDT AALIYAH ([facility]) [id number] Clinical finding Clinical Finding Problem 017 12:00:00 AM EDT - 05/03/2020 12:00:00 AM EDT AALIYAH ([facility]) [id number] Clinical finding Clinical Finding Problem 017 12:00:00 AM EDT - 05/03/2020 12:00:00 AM EDT AALIYAH ([facility]) [id number] Clinical finding Clinical Finding Problem 017 12:00:00 AM EDT - 05/03/2020 12:00:00 AM EDT AALIYAH ([facility]) [id number] Clinical finding Clinical Finding Problem 017 12:00:00 AM EDT - 05/03/2020 12:00:00 AM EDT AALIYAH ([facility]) [id number] Clinical finding Clinical Finding Problem 017 12:00:00 AM EDT - 05/03/2020 12:00:00 AM EDT AALIYAH ([facility]) [id number] Clinical finding Clinical Finding Problem 017 12:00:00 AM EDT - 05/03/2020 12:00:00 AM EDT AALIYAH ([facility]) [id number] Clinical finding Clinical Finding Problem 017 12:00:00 AM EDT - 05/03/2020 12:00:00 AM EDT AALIYAH ([facility]) Surgeries/Procedures Procedure Description Date Indications Data Source(s) OFFICE OUTPATIENT VISIT 25 MINUTES 04/01/2021 12:00:00 AM EDT MEDENT ([facility]) OFFICE OUTPATIENT VISIT 15 MINUTES 02/07/2021 12:00:00 AM EDT MEDENT ([facility]) OFFICE OUTPATIENT VISIT 15 MINUTES 11/08/2020 12:00:00 AM EDT MEDENT ([facility]) OFFICE OUTPATIENT VISIT 15 MINUTES 11/08/2020 12:00:00 AM EDT MEDENT ([facility]) MRI, abdomen, w/wo contrast 08/27/2020 12:00:00 AM EST MCRAE ([facility]) MRI, abdomen, w/wo contrast 08/27/2020 12:00:00 AM EST [facility]AE ([facility]) MRI, abdomen, w/wo contrast 08/27/2020 12:00:00 AM EST [facility]) MRI, abdomen, w/wo contrast 08/27/2020 12:00:00 AM EST [facility]) MRI, abdomen, w/wo contrast 08/27/2020 12:00:00 AM EST [facility]) MRI, abdomen, w/wo contrast 08/27/2020 12:00:00 AM EST [facility]) PRESSURIZED/NONPRESSURIZED INHALATION TREATMENT 2019 12:00:00 AM EST MEDENT ([facility]) Results ID Date Data Source [id number] 03/21/2021 08:34:00 AM EDT AALIYAH ([facility]) Name Value Range Interpretation Code Description Data Radha rce(s) Supporting Document(s) Thyrotropin [Units/volume] in Serum or Plasma 1.82 mIU/L Tsh AALIYAH ([facility]) ID Date Data Source [id number] 03/21/2021 08:34:00 AM EDT AALIYAH ([facility]) Name Value Range Interpretation Code Description Data Radha rce(s) Supporting Document(s) Cholesterol [Mass/volume] in Serum or Plasma 174 mg/dL <200 Cholesterol, Total AALIYAH ([facility]) Cholesterol in HDL [Mass/volume] in Serum or Plasma 51 mg/dL > or = 50 HDL Cholesterol AALIYAH ([facility]) Triglyceride [Mass/volume] in Serum or Plasma 75 mg/dL <150 Triglycerides AALIYAH ([facility]) Cholesterol in LDL [Mass/volume] in Serum or Plasma by calculation 107 mg/dL_(calc) Above high normal LDL-cholesterol AALIYAH ([facility]) Cholesterol.total/Cholesterol in HDL [Mass Ratio] in Serum o r Plasma 3.4 (calc) <5.0 Chol/hdlc Ratio AALIYAH ([facility]) Cholesterol non HDL [Mass/volume] in Serum or Plasma 123 mg/dL_(marina c) <130 Non HDL Cholesterol AALIYAH ([facility]) ID Date Data Source [id number] 02/12/2021 01:32:00 PM EDT [facility] [address] [place] [address] PHONE: [phone] FAX: [phone] Name .................. : YANCY Gottlieb Acct Number.................. : [id number] ROOM. ................. : TR-05 Number ................... : [id number] Stay type ............. : E/R Discharge Date......... ... : 02/11/21 Admit Date ......... : 02/10/21 Admit Phys .................... : JAMAAL ELZBIETA Date of ....... : 1985 Family Phys ................... : LIZBETH ZAMBRANO Phone .................. : [phone] Age ................................ : 35 Film# .................. .:[id number] Sex ................................. : F Unsigned transcriptions are preliminary reports and do not represent a medical or legal document CHEST 2 VIEWS [id number] COMPLETE:02/11/21 00:03 DLA 79962 Reason(s): Asthma FRONTAL AND LATERAL CHEST TWO VIEWS INDICATION: Asthma. Chest pain. COMPARISON: None FINDINGS: Mediastinal and hilar structures are normal. Cardiac silhouette is unremarkable. Lungs are clear. No pulmonary edema. Normal symmetric aeration. No pleural effusions or pneumothorax. IMPRESSION: Normal exam. Electronically Reviewed and Signed By Gregg Sullivan MD , 02/12/21 13:32, MARLYNB Transcribe Initials: SSR, Transcribe Date: 02/12/21 12:50, Dictation Date: Copy for: EMERGENCY DEPT via modem Copy for: 710 MED REC DISCHARGED Page 1 of 1 Name Value Range Interpretation Code Description Data Radha rce(s) Supporting Document(s) ID Date Data Source [id number] 02/12/2021 12:47:00 AM EDT [facility] [address] [place] [address] RESPIRATORY CARE REPORT ==== ---------NAME------- NUMBER SEX AGE ADMIT DISC. XRAY# F/C JAILYN Gottlieb [id number] F 35 02/10/21 02/11/21 [id number] X6B E/R DATE OF : 1985 M/R# [id number] #: [id number] TR-05 LOCATION: EMERGENCY DEPT EKG 82309 COMP LETE:02/11/21 00:11 [place] [id number] PHYSICIAN: JAMAAL RUFF Name Value Range Interpretation Code Description Data Radha rce(s) Supporting Document(s) ID Date Data Source [id number] 02/10/2021 08:49:00 PM EDT [facility] 1 OrderSheet [facility] Emergency Department [address] [place] [address] Phone #: [phone]- [phone] 02/10/2021 20:45 Patient: YAO HAINES Sex: F : 1985 Age: 35yWEIGHT:58.9 kg (S) HEIGHT:63 inches (S) BMI:23.0ALLERGIES: No Known Drug AllergyCHIEF COMPLAINT: coughDIAGNOSIS: Asthma, Bronchitis, Chest wall painLAB ORDERSOrder Description Priority Entered Acknowledged InitialedDIAGNOSTIC STUDY ORDERSOrder Description Priority Entered Acknowledged InitialedChest 2 View STAT 22:53 02/10/2021 23:52 Chio Kwong(Oxygen?(No)) Neel Nicole R.N., M.D.; Reason for Study: Asthma, Chest Pain, Congestion, CoughMEDICATION/IV/ DRIP/FLUID ORDERSOrder Description Priority Entered Acknowledged InitialedpredniSONE PO 40 22:53 02/10/2021 22:57 Moshe Kwong Riccardo R.N. M.D.;Josefina Crouch PO 22:54 02/10/2021 22:57 Chio Kwong100 mg Neel Nicole R.N., M.D.;GENERAL ORDERSOrder Description Priority Entered Acknowledged InitialedEKG 21:11 02/10/2021 21:12 Linus Barriga Rachel Rachel R.N. R.N.; Per protocol; Neel Nicole M.D.EKG 21:12 02/10/2021 Initialed: 21:12 Neel Nicole M.D., Riccardo Cancelled: Duplicate Order 21:12 Rashmi Nicole; Neel Caraballo[Electronically signed by Chio Kwong R.N. (00:16 02/11/2021)][Electronically signed by Neel Nicole M.D. (00:59 02/11/2021 )][Electronically locked by Chio Kwong R.N. (00:16 02/11/2021)] 2 OrderSheet [facility] Emergency Department [address] [place] [address] Phone #: ext- [phone] 02/10/2021 20:45 Patient: YAO HAINES Sex: F : 1985 Age: 35y Name Value Range Interpretation Code Description Data Radha rce(s) Supporting Document(s) ID Date Data Source [id number] 02/10/2021 08:49:00 PM EDT [facility] 1 Medication Reconciliation Report [facility] Emergency Department [address] [place] [address] Phone #: [phone]- [phone] 02/10/2021 20:45 Patient: YAO HAINES Sex: F : 1985 Age: 35yWeight: 58.9 kgHeight/Length: 63 in.BMI: 23.0ALLERGIES: No Known Drug AllergyThe patient's Home Medications are listed below:CONTINUE TAKING THE FOLLOWING MEDICATIONS: Albuterol Sulfate HFA Inhalation Amoxicillin-Pot Clavulanate Oral (875-125 mg), 2x a day, started wednesday Arnuity Ellipta Inhalation, daily Gabapentin Oral (400 mg), 2x a day Omeprazole Oral 40 mg, daily Tessalon Perles Oral, started Wednesday ZyrTEC Allergy Oral, dailyThe source(s) of the original Home Medication information:Not obtained.The following Medications were given to the patient in the Emergency Department:Prednisone [PO] PO 40 mg, administered: 22:57 02/10/2021Tessalon Perles [PO] PO 100 mg, administered: 22:57 02/10/2021The following Medications were prescribed to the patient:prednisone 20 mg tablet Take 2 tablet once a day for 5 days -- Dispense 10 tablet. Refills: 0.Substitution permitted.Pharmacy - [facility] - [address] ; [place] [address]. . -- Neel Nicole M.D. 2 Medication Reconciliation Report [facility] Emergency Department [address] [place] [address] Phone #: ext- [phone] 02/10/2021 20:45 Patient: YAO HAINES Sex: F : 1985 Age: 35y Name Value Range Interpretation Code Description Data Radha e(s) Supporting Document(s) ID Date Data Source [id number] 02/10/2021 08:49:00 PM EDT [facility] 1 Medication Administration Record [facility] Emergency Department [address] [place] [address] Phone #: ext- [phone] 02/10/2021 20:45 Patient: YAO HAINES Sex: F : 1985 Age: 35yWeight: 58.9 kgHeight/Length: 63 inBMI: 23ALLERGIES: No Known Drug Allergy Date/Time Medication Administered Medication OrderedGiven PREDNISONE [PO] predniSONE PO 40 mg22:57 02/10/2021 Dose: 40 mg Tablets Chio Green R.NOneliaGiven TESSALON PERLES [PO] Tessalon Perles PO 100 mg22:57 02/10/2021 (BENZONATATE)Chio Kwong ROneliaNOnelia Dose: 100 mg Capsules PO Name Value Range Interpretation Code Description Data [facility](s) Supporting Document(s) ID Date Data Source [id number] 02/10/2021 08:49:00 PM EDT [facility] 1 General Instructions [facility] Emergency Department [address] [place] [address] Phone #: ext [phone] 02/10/2021 20:45 Patient: YAO HAINES Sex: F : 1985 Age: 35yChest wall painMild intermittent asthma with an acute exacerbation. No status asthmaticus.Acute mucopurulent bronchitis associated with asthma.INSTRUCTIONSNo strenuous activity until better.Drink plenty of fluids. Do not smoke. No alcohol.Warnings: Further evaluation is necessary. It is very important to follow up with a healthcare provider.GENERAL WARNINGS: Return or contact your physician immediately if your condition worsens orchanges unexpectedly, if not i mproving as expected, or if other problems arise. Specifically return if pain,vomiting, bleeding, breathing difficulty or fever greater than 102 degrees F and not controlled byacetaminophen or ibuprofen.Your Current Medications: Your current home medications have been reviewed.CONTINUE TAKING THE FOLLOWING MEDICATIONS:Albuterol Sulfate HFA Inhalation.Amoxicillin-Pot Clavulanate Oral : Tablet 875-125 mg, 2x a day, started wednesday.Arnuity Ellipta Inhalation : daily.Gabapentin Oral : Capsule 400 mg, 2x a day.Omeprazole Oral : 40 mg daily.Tessalon Perles Oral : started Wednesday.ZyrTEC Allergy Oral : daily.Pr escription Medications:prednisone 20 mg tablet Take 2 tablet once a day for 5 days -- Dispense 10 tablet. Refills: 0.Substitution permitted.Pharmacy - [facility] - [address] ; [place] [address]. .Follow-up:Return to the emergency department as needed. Follow up with your healthcare provider in three dayseven if well. Call for an appointment. Reason for referral: evaluation and treatment. Summary of careprovided to patient via paper.Understanding of the discharge instructions verbalized by patient. Expected course of illness, dischargeinstructions, activity level, diet, prescriptions x1, follow-up appointment and risks and benefits of treatment 2 General Instructions [facility] Emergency Department [address] [place] [address] Phone #: ext- [phone] 02/10/2021 20:45 Patient: YAO HAINES Sex: F : 1985 Age: 35yreviewed with patient and understanding verbalized. Agrees to plan of care. ADDITIONAL INFORMATIONAsthma (Adult)Asthma is a disease where the medium and small air passages in the lung go into spasm and restrictair flow. Inflammation and swelling of the airways cause further blockage. During an acute asthmaattack, these factors cause trouble breathing, wheezing, cough, and chest tightness.An asthma attack can be triggered by many things. Common triggers include infections such as thecommon cold, bronchitis, and pneumonia. Irritants such as smoke or pollutants in the air, very coldair, emotional upset, and exercise can also trigger an attack. In many adults with asthma, allergiesto dust, mold, pollen, and animal dander can cause an asthma attack. Skipping doses of daily asthmamedicine can also bring on an asthma attack.Asthma can be controlled using the correct medicines prescribed by your healthcare provider and 3 General Instructions [facility] Emergency Department [address] [place] [address] Phone #: ext- [phone] 02/10/2021 20:45 Patient: YAO HAINES Sex: F : 1985 Age: 35ystaying away from known triggers including allergens and irritants.Home care Take prescribed medicine exactly at the times advised. If you need medicine such as from a handheld inhaler or aerosol breathing machine more than every 4 hours, contact your healthcare provider or get medical care right away. If you are prescribed an antibiotic or prednisone, take all of the medicine as prescribed. Keep taking it even if you are feeling better after a few days. Don't smoke. Stay away from the smoke of others. Some people with asthma find their symptoms get worse when they take aspirin and non-steroidal or fever-reducing medicines such as ibuprofen and naproxen. Talk with your healthcare provider if you think this may apply to you.Follow-up careFollow up with your healthcare provider, or as advised. Always bring all of your current medicines toany appointments with your healthcare provider. Also bring a complete list of medicines, even thosenot taken for asthma. If you don't already have one, talk with your healthcare provider about makingyour own Asthma Action Plan.A pneumonia (pneumococcal) vaccine and yearly flu shot (every fall) are advised. Ask your providerabout this.When to get medical adviceCall your healthcare provider or get medical care right away if any of these occur: More wheezing or shortness of breath Need to use your inhalers more often than normal without relief Fever of 100.4F (38C) or higher, or as directed by your provider Coughing up lots of dark-colored or bloody sputum (mucus) Chest pain with each breath If you use a peak flow meter as part of an Asthma Action Plan, and you are still in the yellow zone (50% to 80%) 15 minutes after using inhaler medicine.Call [phone] if any of these occur: 4 General Instructions [facility] Emergency Department [address] [place] [address] Phone #: [phone] ext- [phone] 02/10/2021 20:45 Patient: YAO HAINES Sex: F : 1985 Age: 35y Trouble walking or talking because you are short of breath If you use a peak flow meter as part of an Asthma Action Plan, and you are still in the red zone (less than 50%) 15 minutes after using inhaler medicine Lips or fingernails turn ochoa, purple, or blue Feeling faint or loss of consciousness [phone] [employer]. [address] [place] [address], [place] [address]. All rights reserved. This information is not intended as asubstitute for professional medical care. Always follow your healthcare professional's instructions.Bronchitis, Antibiotic Treatment (Adult)Bronchitis is an infection of the air passages (bronchial tubes) in your lungs. It often occurs when youhave a cold. This illness is contagious during the first few days and is spread through the air bycoughing and sneezing, or by direct contact (touching the sick person and then touching your own 5 General Instructions [facility] Emergency Department [address] [place] [address] Phone #: ext- [phone] 02/10/2021 20:45 Patient: YAO HAINES Sex: F : 1985 Age: 35yeyes, nose, or mouth).Symptoms of bronchitis include cough with mucus (phlegm) and low-grade fever. Bronchitis usuallylasts 7 to 14 days. Mild cases can be treated with simple home remedies. More severe infection istreated with an antibiotic.Home careFollow these guidelines when caring for yourself at home: If your symptoms are severe, rest at home for the first 2 to 3 days. When you go back to your usual activities, don't let yourself get too tired. Don't smoke. Also stay away from secondhand smoke. You may use hqkq-wvl-nagjxah medicines to control fever or pain, unless another medicine was prescribed. If you have chronic liver or kidney disease or have ever had a s tomach ulcer or gastrointestinal bleeding, talk with your healthcare provider before using these medicines. Also talk to your provider if you are taking medicine to prevent blood clots. Aspirin should never be given to anyone younger than 18 who is ill with a viral infection or fever. It may cause severe liver or brain damage. Your appetite may be low, so a light diet is fine. Stay well hydrated by drinking 6 to 8 glasses of fluids per day. This includes water, soft drinks, sports drinks, juices, tea, or soup. Extra fluids will help loosen mucus in your nose and lungs. Xkzs-jst-jcjbemk cough, cold, and sore-throat medicines will not shorten the length of the illness, but they may be helpful to reduce your symptoms. Don't use decongestants if you have high blood pressure. Finish all antibiotic medicine. Do this even if you are feeling better after only a few days.Follow-up careFollow up with your healthcare provider, or as advised. If you had an X-ray or ECG(electr ocardiogram), a specialist will review it. You will be told of any new test results that may affectyour care.If you are age 65 or older, if you smoke, or if you have a chronic lung disease or condition that affectsyour immune system, ask your healthcare provider about getting a pneumococcal vaccine and ayearly flu shot (influenza vaccine).When to seek medical adviceCall your healthcare provider right away if any of these occur: 6 General Instructions [facility] Emergency Department [address] [place] [address] Phone #: ext- [phone] 02/10/2021 20:45 Patient: YAO HAINES Chery Sex: F : 1985 Age: 35y Fever of 100.4F (38C) or higher, or as directed by your healthcare provider Coughing up more sputum Weakness, drowsiness, headache, facial pain, ear pain, or a stiff neckCall 911Call 911 if any of these occur. Coughing up blood Weakness, drowsiness, headache, or stiff neck that get worse Trouble breathing, wheezing, or pain with breathing [phone] [employer]. [address] [place] [address]. All rights reserved. This information is not intended as asubstitute for professional medical care. Always follow your healthcare professional's instructions.Viral or Bacterial Bronchitis with Wheezing (Adult) 7 General Instructions [facility] Emergency Department [address] [place] [address] Phone #: ext- [phone] 02/10/2021 20:45 Patient: YAO HAINES Sex: F : 1985 Age: 35yBronchitis is an infection of the air passages. It often occurs during a cold and is usually caused by avirus. Symptoms include cough with mucus (phlegm) and low-grade fever. This illness is contagiousduring the first few days and is spread through the air by coughing and sneezing, or by direct contact(touching the sick person and then touching your own eyes, nose, or mouth).If there is a lot of inflammation, air flow is restricted. The air passages may also go into spasm,especially if you have asthma. This causes wheezing and difficulty breathing even in people who donot have asthma.Bronchitis usually lasts 7 to 14 days. The wheezing should improve with treatment during the firstweek. An inhaler is often prescribed to relax the air passages and stop wheezing. Antibiotics will beprescribed if your doctor thinks there is also a secondary bacterial infection.Home care If symptoms are severe, rest at home for the first 2 to 3 days. When you go back to your usual activities, don't let yourself get too tired. 8 General Instructions [facility] Emergency Department [address] [place] [address] Phone #: ext- [phone] 02/10/2021 20:45 Patient: YAO HAINES Sex: F : 1985 Age: 35y Dont s'moke. Also avoid being exposed to secondhand smoke. You may use yskc-snx-aadazok medicine to control fever or pain, unless another medicine was prescribed. Note: If you have chronic liver or kidney disease or have ever had a stomach ulcer or gastrointestinal bleeding, talk with your healthcare provider before using these medicines. Also talk to your provider if you are taking medicine to prevent blood clots.) Aspirin should never be given to anyone younger than 18 years of age who is ill with a viral infection or fever. It may cause severe liver or brain damage. Your appetite may be poor, so a light diet is fine. Stay well hydrated by drinking 6 to 8 glasses of fluids per day (such as water, soft drinks, sports drinks, juices, tea, or soup). Extra fluids will help loosen secretions in the nose and lungs. Blwa-ukh-zrkxnzv cough, cold, and sore-throat medicines will not shorten the length of the illness, but they may be helpful to reduce symptoms. (Note: Don't use decongestants if you have high blood pressure.) If you were given an inhaler, use it exactly as directed. If you need to use it more often than prescribed, your condition may be worsening. If this happens, contact your healthcare provider. If prescribed, finish all antibiotic medicine, even if you are feeling better after only a few days.Follow-up careFollow up with your healthcare provider, or as advised. If you had an X-ray or ECG(electrocardiogram), a specialist will review it. You will be notified of any new findings that may affectyour care.If you are age 65 or older, or if you hav e a chronic lung disease or condition that affects your immunesystem, or you smoke, ask your healthcare provider about getting a pneumococcal vaccine and ayearly flu shot (influenza vaccine).When to seek medical adviceCall your healthcare provider right away if any of these occur: Fever of 100.4F (38C) or higher, or as directed by your healthcare provider Coughing up increasing amounts of colored sputum Weakness, drowsiness, headache, facial pain, ear pain, or a stiff neckCall 911Call 911 if any of these occur. 9 General Instructions [facility] Emergency Department [address] [place] [address] Phone #: ext- [phone] 02/10/2021 20:45 Patient: YAO HAINES Sex: F : 1985 Age: 35y Coughing up blood Worsening weakness, drowsiness, headache, or stiff neck Increased wheezing not helped with medication, shortness of breath, or pain with breathing [phone] [employer]. [address] [place] [address], [place] [address]. All rights reserved. This information is not intended as asubstitute for professional medical care. Always follow your healthcare professional's instructions.Chest Wall Pain: CostochondritisThe chest pain that you have had today is caused by costochondritis. This condition is caused by aninflammation of the cartilage joining your ribs to your breastbone. It's not caused by heart or lungproblems. Your healthcare team has made sure that the chest pain you feel is not from a lifethreatening cause of chest pain such as heart attack, collapsed lung, blood clot in the lung, tear in theaorta, or esophageal rupture. The inflammation may have been brought on by a blow to the chest,lifting heavy objects, intense exercise, or an illness that made you cough and sneeze a lot. It oftenoccurs during times of emotional stress. It can be painful, but it's not dangerous. It usually goes awayin 1 to 2 weeks. But it may happen again. Rarely, a more serious condition may cause symptomssimilar to costochondritis. That's why it's important to watch for the warning signs listed below.Home careFollow these guidelines when caring for yourself at home: If you feel that emotional st ress is a cause of your condition, try to figure out the sources of that stress. It may not be obvious. Learn ways to deal with the stress in your life. This can 10 General Instructions [facility] Emergency Department [address] [place] [address] Phone #: ext- [phone] 02/10/2021 20:45 Patient: YAO HAINES Sex: F : 1985 Age: 35y include regular exercise, muscle relaxation, meditation, or simply taking time out for yourself. You may use acetaminophen, ibuprofen, or naproxen to control pain, unless another pain medicine was prescribed. If you have liver or kidney disease or ever had a stomach ulcer, talk with your healthcare provider before using these medicines. You can also help ease pain by using a hot, wet compress or heating pad. Use this with or without a medicated skin cream that helps relieves pain. Do stretching exercise as advised by your provider. Typically rest is beneficial for the first few days. Avoid strenuous activity that worsens the pain. Take any prescribed medicines as directed.Follow-up careFollow up with your healthcare provider, or as advis ed.When to seek medical adviceCall your healthcare provider right away if any of these occur: A change in the type of pain. Call if it feels different, becomes more serious, lasts longer, or spreads into your shoulder, arm, neck, jaw, or back. Shortness of breath or pain gets worse when you breathe Weakness, dizziness, or fainting Cough with dark-colored sputum (phlegm) or blood Abdominal pain Dark red or black stools Fever of 100.4F (38C) or higher, or as directed by your healthcare provider [phone] [employer]. [address] [place] [address]. All rights reserved. This information is not intended as asubstitute for professional medical care. Always follow your healthcare professional's instructions. You have been given the following additional information: Asthma, Acute (Adult) Bronchitis, Antibiotic Treatment (Adult) Bronchitis with Wheezing (Adult) Chest Wall Pain, Costochondritis 11 General Instructions [facility] Emergency Department [address] [place] [address] Phone #: ext- [phone] 02/10/2021 20:45 Patient: YAO HAINES Sex: F : 1985 Age: 35yNo strenuous activity until better.(Electronically signed by Neel Nicole M.D. 02/11/2021 00:59) Name Value Range Interpretation Code Description Data Radha rce(s) Supporting Document(s) ID Date Data Source [id number] 02/10/2021 08:49:00 PM EDT [facility] 1 Clinical Report - Nurses [facility] Emergency Department [address] [place] [address] Phone #: ext- [phone] 02/10/2021 20:45 Patient: YAO HAINES Sex: F : 1985 Age: 35yTRIAGEArrived by private vehicle. Historian: patient.Acuity: LEVEL 3.Chief Complaint: SHORTNESS OF BREATH and COUGH and CHEST PAIN.Alert. No acute distress.Onset. (1 months ago). ( PT reports having chest tightness, cough, and SOB for 1 month that is gettingprogressively worse. She has seen her pcp and was seen at urgent care Wednesday and was prescribedamoxicillin and tessalon perles. She is not feeling any better after the antibiotics and has been using herrescue inhaler 6 times a day. She was also tested covid on Wednesday and it was negative.). 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 SEPSIS SCREEN NEGATIVE. No suspected or confirmedsigns of infection present.ROSE COMA SCORE: 15- eyes open- spontaneous (4); best verbal response- oriented (5); bestmotor response- obeys commands (6). --21:02 02/10/21 Ana Barriga R.N.20:50 02/10/21. BP: 109/73. HR: 74. RR: 20. O2 saturation: 99%. Temp: 99.1 F. Pain level now 5/10.--21:02 02/10/21 Ana Barriga R.N.Weight: 58.9 kg stated. Height/Length: 63 inches Per Patient. BMI: 23. --20:55 02/10/21 Ana Barriga R.N.MedicationsAlbuterol Sulfate HFA Inhalation. --20:59 02/10/21 Ana Barriga R.N. Tessalon Perles Oral (started Wednesday). --21:00 02/10/21 Ana Barriga R.N. Gabapentin Oral (Capsule 400 mg), 2x a day. --21:00 02/10/21 Ana Barriga R.N. ZyrTEC Allergy Oral, daily. --21:00 02/10/21 Ana Barriga R.N. Omeprazole Oral 40 mg, daily. --21:00 02/10/21 Ana Barriga R.N. Arnuity Ellipta Inhalation, daily. --21:02 02/10/21 Ana Barriga R.N. Amoxicillin-Pot Clavulanate Oral (Tablet 875-125 mg), 2x a day (started wednesday). --21:04 02/10/21 Ana Barriga R.N.The following entry was struck by Ana Barriga R.N., 21:04 (02/10/21) Reason - other. Amoxicillin Oral (started Wednesday). --21:00 02/10/21 Ana Gibbons R.N. . 2 Clinical Report - Nurses [facility] Emergency Department [address] [place] [address] Phone #: ext- [phone] 02/10/2021 20:45 Patient: YAO HAINES Sex: F : 1985 Age: 35yAllergiesNo Known Drug Allergy. --20:59 02/10/21 Ana Barriga R.N.PROBLE MS:Gastroesophageal Reflux Disease.Asthma. --21:02/10/21 Ana Barriga R.N.ADDITIONAL SURGERIES:Adenoidectomy.Appendectomy. (X 6).Tonsillectomy.Tubal Ligation.Tympanostomy Tubes (X 5). --21:02/10/21 Ana Barriga R.N.HistoryPAST MEDICAL HX: Last normal menstrual period- January 19. Denies current .SOCIAL HX: Light tobacco smoker- less than 1/2 a pack per day. No alcohol use or drug use. She wasoffered HIV testing but declined and hepatitis C testing but declined. She has not traveled outside the[place]Infectious disease exposure: The patient was not exposed to C-diff, MRSA, VRE, CRE or Coronavirus.SELF HARM ASSESSMENT: Self harm assessment was performed. The patient answered "no" to thequestion(s) "Have you recently felt down, depressed, or hopeless?", "Do you have thoughts of harming orkilling yourself?", "Do you have a plan for harming or killing yourself?", "Have you recently had thoughtsabout harming or killing others?", "Do you have any dangerous items in your possession?", "Have younoticed less interest or pleasure in doing things?", "Are you here because you tried to hurt yourself?" and&quo t;Have you ever tried to hurt yourself before today?".ABUSE ASSESSMENT: No report of abuse.NUTRITIONAL RISK ASSESSMENT: The nutritional risk assessment revealed no deficiencies.FUNCTIONAL ASSESSMENT: Functional assessment: no impairments noted.LEARNING NEEDS ASSESSMENT: The learning needs assessment revealed no barriers.FALL RISK ASSESSMENT: Fall risk assessment completed. No risk factors identified.SKIN INTEGRITY ASSESSMENT: Skin integrity risk assessment completed. No skin integrity riskidentified. --21:02/10/21 Ana Barriga R.N.InterventionsIdentification band on patient. To treatment room. No allergy band on patient. --21:02/10/21 Linus, Nilda Clinical Report - Nurses [facility] Emergency Department [address] [place] [address] Phone #: ext- [phone] 02/10/2021 20:45 Patient: YAO HAINES Sex: F : 1985 Age: 35y Dennise PerezPHYSICAL [id number] 02/10/21. Ambulatory to room.GENERAL / NEURO / PSYCH: Alert. Oriented X 4. Appears in no acute distress.HEENT: Mucous membranes are pink.RESPIRATORY: No respiratory distress. Respirations not labored. The patient can speak in fullsentences. Cough productive of scant amounts of green sputum. Breath sounds within normal limits. (pt reports chest wall pain with cough).CVS: Normal sinus rhythm noted. Capillary refill less than 2 seconds.GI / : Abdomen soft and nontender. Bowel sounds within normal limits.SKIN: Skin is warm and dry. Normal skin turgor. --22:48 02/10/21 Chio Kwong R.N.NURSING PROGRESS NOTESEKG time: (20:49 02/10/2021). EKG was performed by a tech and shown to the ED physician.Reassurance given. --21:03 02/10/21 Ana Barriga R.N. Two patient identifiers checked. --21:03 02/10/21 Ana Barriga R.N. 22:11 02/10/21. surveillance monitor, NIBP monitor and pulse oximeter placed on patient; monitor worker- Lead II. Patient gowned. Two patient identifiers checked. Call light placed in reach. Side rails up x 2. Bed placed in lowest position. Brakes of bed on. Patient ready for evaluation- ED physician and PA notified. --22:11 02/10/21 Chio Kwong R.N. 22:57 02/10/2021 Prednisone PO Tablets 40 mg given. Allergies verified and confirmed 5 rights. Information reviewed with patient including reason for taking this medication, signs of allergic reaction and precautions. Verbalizes understanding. --22:57 02/10/21 Chio Kwong R.N. 22:57 02/10/2021 Tessalon Perles (Benzonatate) PO Capsules 100 mg given. Allergies verified and confirmed 5 rights. Information reviewed with patient including reason for taking this medication, signs of allergic reaction and precautions. Verbalizes understanding. --22:57 02/10/21 Chio Kwong R.N. 23:59 02/10/21. Reassessment after medication administered. Overall patient status is improved. ( cough improved after meds). --23:59 02/10/21 Chio Kwong R.N. 23:58 02/10/21. BP: 109/81. MAP: 90. HR: 66. RR: 16. O2 saturation: 99%. Pain level now: 10/19. --23:59 02/10/21 Chio Kwong R.N.DISPOSITION / DISCHARGE 00:16 02/11/21. [place] Coma Scale: 15- eyes open- spontaneous (4); best verbal response- oriented (5); best motor response- obeys commands (6). Condition at departure: improved and stable. Reviewed medication(s) side effects, precautions, dosing and course information. Prescription(s) sent electronically to pharmacy. Work note given. Patient verbalized understanding. Written instructions provided in Kinyarwanda. The patient was discharged by the physician. She was discharged home. She left ambulatory and via 4 Clinical Report - Nurses [facility] Emergency Department [address] [place] [address] Phone #: ext- [phone] 02/10/2021 20:45 Patient: YAO HAINES Sex: F : 1985 Age: 35y private vehicle. Patient driving. --00:16 02/11/21 Chio Kwong R.N. 00:15 02/11/21. BP: 108/82. MAP: 90. HR: 64. RR: 16. O2 saturation: 100%. Temp: 98.7 F. Pain level now: 10/19. --00:16 02/11/21 Chio Kwong R.N.Locked/Released at 02/11/2021 00:16 by Chio Kwong R.N. Name Value Range Interpretation Code Description Data Radha rce(s) Supporting Document(s) ID Date Data Source [id number] 02/10/2021 08:49:00 PM EDT [facility] 1 Clinical Report - Physicians/Mid Levels [facility] Emergency Department [address] [place] [address] Phone #: ext- [phone] 02/10/2021 20:45 Patient: YAO HAINES Sex: F : 1985 Age: 35y Time Seen: 22:21 02/10/2021; initial patient contact. Arrived- By private vehicle. Historian- patient. Disposition decision: 00:08 02/11/2021.HISTORY OF PRESENT ILLNESS Chief Complaint: COUGH. chest wall pain, SOB. This started 1 month ago and is still present. It has been intermittent. The illness is described as mild. The patient has had a moderate dry cough. No sputum production, fever, muscle aches, chills or sore throat. No nasal conges tion, sinus pressure, sinus drainage or ear pain. She has had mild difficulty breathing and a nasal discharge. She has had mild generalized chest soreness. Additional history - No known contact with a sick individual. No recent travel. (pt has been using Albuterol inhaler more often recently). Similar symptoms previously. Patient has had similar symptoms frequently. Recent medical care: The patient was seen recently in a clinic. ( at on 02/07, prescribed Augmentin and Tessalon; had negative Covid test).REVIEW OF SYSTEMSNo headache, eye discomfort, nausea, vomiting or diarrhea. No abdominal pain, hay fever, pedal edema,calf pain or difficulty with urination. No skin rash, enlarged lymph nodes, joint pain or tick bite. All othersystems reviewed and are negative.PAST HISTORYSee nurses notes. Problems: Restless Legs Syndrome. Pneumonia. Ovarian Cyst. Anemia. Gastroesophageal Reflux Disease. Asthma. Additional Surgeries: Adenoidectomy. Appendectomy. 2 Clinical Report - Physicians/Mid Levels [facility] Emergency Department [address] [place] [address] Phone #: ext- [phone] 02/10/2021 20:45 Patient: YAO HAINES Sex: F : 1985 Age: 35y . (X 6) Tonsillectomy. Tubal Ligation. Tympanostomy Tubes. (X 5). Medications: Amoxicillin-Pot Clavulanate Oral (Tablet 875-125 mg), 2x a day (started wednesday). Arnuity Ellipta Inhalation, daily. Omeprazole Oral 40 mg, daily. ZyrTEC Allergy Oral, daily. Gabapentin Oral (Capsule 400 mg), 2x a day. Tessalon Perles Oral (started Wednesday). Albuterol Sulfate HFA Inhalation. Allergies: No Known Drug Allergy.SOCIAL HISTORYLight tobacco smoker- less than 1/2 a pack per day. No alcohol use or drug use.ADDITIONAL NOTESThe nursing notes have been reviewed with agreement regarding the chief complaint, HPI, ROS, PMH andpatient medications and allergies.PHYSICAL EXAMVital Signs: 02/10/2021 22:11 BP: 130/71. MAP: 90. HR: 68. RR: 22. O2 saturation: 100%. Temp: 98.8 F.Pain level now: 11/18.02/10/2021 20:50 BP: 109/73. MAP: 85. HR: 74. RR: 20. O2 saturation: 99%. Temp: 99.1 F. Have beenreviewed. Oxygen saturation nor mal.Appearance: Alert. No acute distress.Eyes: Pupils equal, round and reactive to light. Eyes normal inspection.ENT: Ears normal. Nose normal. Pharynx normal. Uvula midline.Neck: Normal inspection. Neck supple.CVS: Normal heart rate and rhythm. Heart sounds normal. Pulses normal.Respiratory: No respiratory distress. Painless inspiration. Breath sounds normal. (reproducible sternalpain).Abdomen: Soft and nontender. No organomegaly.Back: Normal inspection.Skin: Skin warm and dry. Normal skin color. No rash. Normal skin turgor.Extremities: Extremities exhibit normal ROM. No lower extremity edema.Neuro: Oriented X 3. No motor deficit. No sensory deficit.LABS, X-RAYS, AND EKGEKG: No acute process. No acute ischemia. Normal EKG. Normal ST and T waves. NAD. PriorEKG unavailable. The study has been interpreted contemporaneously by me. The EKG appears to be a 3 Clinical Report - Physicians/Mid Levels [facility] Emergency Department [address] [place] [address] Phone #: ext- [phone] 02/10/2021 20:45 Patient: YAO HAINES Sex: F : 1985 Age: 35y good tracing. Interpretation time: 20:52 02/10/2021. Chest X-ray: No acute disease. Views: PA and lateral. Technique: good. The X-rays were interpreted contemporaneously by me. Interpretation time: 00:06 02/11/2021. Laboratory Tests: Laboratory tests have been ordered, with results reviewed and considered in the medical decision making process. Chest 2 View: (LORI: 02/10/2021 22:53) ( [facility] 02/11/2021 00:03) In Progress CHEST 2 VIEWS Reason(s): Asthma TRANSPORTATION: IV? O2? Oxygen?(No) Room: ED EKG: (LORI: 02/10/2021 21:12) ( [facility] 02/10/2021 21:12) Canceled.PROGRESS AND PROCEDURESCourse of Care: 00:06 02/11/21. EKG and CXR nml; pt has intermittent asthmatic bronchitis w chest wall pain; she has albuterol inhaler at home, prescribed Augmentin and Tessalon on 02/07, will add Prednisonetonight; pt doing much better; d/c instructions given, pt understands and agrees. Patient counseled in person regarding the patient's stable condition, test results, diagnosis and need for follow-up. Patient agrees with plan of care. Disposition: Condition: good and stable. Discharge decision based on the following: patient's condition is stable; patient's condition is improved; patient is ambulatory; patient is active; patient drinking fluids; patient eating; patient's pain is controlled; patient's exam is improved; no abnormal test results; improving condition on multiple repeat evaluations; social support is good; transportation is available; follow-up is available; clinical impression is consistent with outpatient treatment.CLINICAL IMPRESSION Chest wall pain Mild intermittent asthma with an acute exacerbation. No status asthmaticus. Acute mucopurulent bronchitis associated with asthm a.INSTRUCTIONS No strenuous activity until better. Drink plenty of fluids. Do not smoke. No alcohol. Warnings: Further evaluation is necessary. It is very important to follow up with a healthcare provider. GENERAL WARNINGS: Return or contact your physician immediately if your condition worsens or 4 Clinical Report - Physicians/Mid Levels [facility] Emergency Department [address] [place] [address] Phone #: ext- [phone] 02/10/2021 20:45 Patient: YAO HAINES Sex: F : 1985 Age: 35y changes unexpectedly, if not improving as expected, or if other problems arise. Specifically return if pain, vomiting, bleeding, breathing difficulty or fever greater than 102 degrees F and not controlled by acetaminophen or ibuprofen. Your Current Medications: Your current home medications have been reviewed. CONTINUE TAKING THE FOLLOWING MEDICATIONS: Albuterol Sulfate HFA Inhalation. Amoxicillin-Pot Clavulanate Oral : Tablet 875-125 mg, 2x a day, started wednesday. Arnuity Ellipta Inhalation : daily. Gabapentin Oral : Capsule 400 mg, 2x a day. Omeprazole Oral : 40 mg daily. Tessalon Perles Oral : started Wednesday. ZyrTEC Allergy Oral : daily. Prescription Medications: prednisone 20 mg tablet Take 2 tablet once a day for 5 days -- Dispense 10 tablet. Refills: 0. Substitution permitted. Pharmacy - [id number] - [address] ; [place] [address]. . Follow-up: Return to the emergency department as needed. Follow up with your healthcare provider in three days even if well. Call for an appointment. Reason for referral: evaluation and treatment. Summary of care provided to patient via pa per. Understanding of the discharge instructions verbalized by patient. Expected course of illness, discharge instructions, activity level, diet, prescriptions x1, follow-up appointment and risks and benefits of treatment reviewed with patient and understanding verbalized. Agrees to plan of care.(Electronically signed by Neel Nicole M.D. 02/11/2021 00:59) Name Value Range Interpretation Code Description Data Radha rce(s) Supporting Document(s) ID Date Data Source [id number] 02/07/2021 12:00:[address] [facility] Name Value Range Interpretation Code Description Data [facility] rce(s) Supporting Document(s) SARS-CoV2 Rapid Antigen [address] [facility]. ID Date Data Source [id number] 02/03/2021 04:14:00 PM EDT [facility]) Name Value Range Interpretation Code Description Data Radha rce(s) Supporting Document(s) sars-cov-2 negative negative Sars-cov-2 [facility]) ID Date Data Source [id number] 02/03/2021 04:14:00 PM EDT [facility]) Name Value Range Interpretation Code Description Data Radha rce(s) Supporting Document(s) sars-cov-2 negative negative Sars-cov-2 [facility] ([facility]) ID Date Data Source [id number] 02/03/2021 04:14:00 PM EDT [facility] ([facility]) Name Value Range Interpretation Code Description Data Radha rce(s) Supporting Document(s) sars-cov-2 negative negative Sars-cov-2 AALIYAH ([facility]) ID Date Data Source [id number] 02/03/2021 04:14:00 PM EDT AALIYAH ([facility]) Name Value Range Interpretation Code Description Data Radha rce(s) Supporting Document(s) sars-cov-2 negative negative Sars-cov-2 MCRAE ([facility]) ID Date Data Source [id number] 02/03/2021 03:46:00 PM EDT MCRAE ([facility]) Name Value Range Interpretation Code Description Data Radha rce(s) Supporting Document(s) bilirubin neg Bilirubin AALIYAH ([facility]) glucose neg Glucose AALIYAH ([facility]) blood neg Blood AALIYAH ([facility]) ketone neg Ketone AALIYAH ([facility]) leukocytes neg Leukocytes AALIYAH ([facility]) nitrite neg Nitrite AALIYAH ([facility]) pH Ph AALIYAH ([facility]) protein neg Protein AALIYAH ([facility]) specific gravity Specific [employer] [facility] [place] ([facility]) urobilinogen Urobilinogen AALIYAH ([facility]) ID Date Data Source [id number] 02/03/2021 03:46:00 PM EDT [facility]) Name Value Range Interpretation Code Description Data Radha rce(s) Supporting Document(s) blood neg Blood AALIYAH ([facility]) bilirubin neg Bilirubin AALIYAH ([facility]) glucose neg Glucose AALIYAH ([facility]) ketone neg Ketone AALIYAH ([facility]) leukocytes neg Leukocytes AALIYAH ([facility]) nitrite neg Nitrite AALIYAH ([facility]) pH Ph AALIYAH ([facility]) protein neg Protein AALIYAH ([facility]) specific gravity Specific [employer] [place] ([facility]) urobilinogen Urobilinogen AALIYAH ([facility]) ID Date Data Source [id number] 02/03/2021 03:46:00 PM EDT AALIYAH ([facility]) Name Value Range Interpretation Code Description Data Radha rce(s) Supporting Document(s) bilirubin neg Bilirubin AALIYAH ([facility]) blood neg Blood AALIYAH ([facility]) glucose neg Glucose AALIYAH ([facility]) ketone neg Ketone AALIYAH ([facility]) leukocytes neg Leukocytes AALIYAH ([facility]) nitrite neg Nitrite AALIYAH ([facility]) pH Ph AALIYAH ([facility]) protein neg Protein AALIYAH ([facility]) specific gravity Specific [employer] [place] ([facility]) urobilinogen Urobilinogen AALIYAH ([facility]) ID Date Data Source [id number] 02/03/2021 03:46:00 PM EDT AALIYAH ([facility]) Name Value Range Interpretation Code Description Data Radha rce(s) Supporting Document(s) bilirubin neg Bilirubin AALIYAH ([facility]) blood neg Blood AALIYAH ([facility]) ketone neg Ketone AALIYAH ([facility]) glucose neg Glucose AALIYAH ([facility]) leukocytes neg Leukocytes AALIYAH ([facility]) pH Ph AALIYAH ([facility]) nitrite neg Nitrite AALIYAH ([facility]) protein neg Protein AALIYAH ([facility]) specific gravity Specific [employer] [place] ([facility]) urobilinogen Urobilinogen AALIYAH ([facility]) ID Date Data Source [id number] 02/03/2021 03:08:00 PM EDT [facility] Name Value Range Interpretation Code Description Data Radha rce(s) Supporting Document(s) SARS coronavirus 2 RdRp gene [Presence] in Respiratory specimen by STEPHANIE with probe detection Not detected [facility] This lab was ordered by [facility] and reported by [facility]. ID Date Data Source [id number] 01/29/2021 03:35:00 PM EDT AALIYAH ([facility]) Name Value Range Interpretation Code Description Data Radha rce(s) Supporting Document(s) folate 18.0 NG/mL >5.4 Folate MCRAE ([facility]) ID Date Data Source [id number] 01/29/2021 03:35:00 PM EDT MCRAE ([facility]) Name Value Range Interpretation Code Description Data Radha rce(s) Supporting Document(s) vitamin B12 level 768 pg/mL 247-911 Vitamin B12 Level MCRAE ([facility]) ID Date Data Source [id number] 01/29/2021 03:35:00 PM EDT MCRAE ([facility]) Name Value Range Interpretation Code Description Data Radha rce(s) Supporting Document(s) ferritin 64 NG/mL 8-252 Ferritin AALIYHA ([facility]) ID Date Data Source [id number] 01/29/2021 03:35:00 PM EDT AALIYAH ([facility]) Name Value Range Interpretation Code Description Data Radha rce(s) Supporting Document(s) iron (fe) 41 ug/dL 50-170 Below low normal Iron (Fe) MCRAE ( [facility]) total iron binding capacity 267 ug/dL 250-450 Total Ir on Binding Capacity MCRAE ([facility]) percent saturation 15.4 % 13.2-45.0 Percent Saturatio n AALIYAH ([facility]) ID Date Data Source [id number] 01/29/2021 03:35:00 PM EDT AALIYAH ([facility]) Name Value Range Interpretation Code Description Data Radha rce(s) Supporting Document(s) glucose, fasting 101 mg/dL 70-100 Above high normal Glucose, Fas ting AALIYAH ([facility]) blood urea nitrogen 7 mg/dL 7-18 Blood Urea Nitro gen AALIYAH ([facility]) creatinine for GFR 0.66 mg/dL 0.55-1.30 Creatinine for GF R AALIYAH ([facility]) glomerular filtration rate > 60.0 >60 Glomerula r Filtration Rate AALIYAH ([facility]) sodium level 138 mEq/L 136-145 Sodium Level AALIYAH ([facility]) potassium serum 3.5 mEq/L 3.5-5.1 Potassium Serum ATHE NA ([facility]) chloride level 107 mEq/L 98-107 Chloride Level AALIYAH ([facility]) carbon dioxide level 26 mEq/L 21-32 Carbon Dioxide Level AALIYAH ([facility]) anion gap 5 mEq/L 8-16 Below low normal Anion Gap AALIYAH ( [facility]) calcium level 8.4 mg/dL 8.5-10.1 Below low normal Calcium Level AT [facility]) AST/SGOT 15 U/L 7-37 AST/SGOT AALIYAH ([facility]) ALT/SGPT 31 U/L 12-78 ALT/SGPT AALIYAH ([facility]) alkaline phosphatase 65 U/L 45-117 Alkaline Phosph atase AALIYAH ([facility]) bilirubin,total 0.3 mg/dL 0.2-1.0 Bilirubin,total ATHE ([facility]) total protein 7.7 gm/dL 6.4-8.2 Total Protein AALIYAH ( [facility]) albumin 4.0 gm/dL 3.2-5.2 Albumin AALIYAH ([facility]) albumin/globulin ratio 1.2-2.2 Below low normal Albumin /globulin Ratio AALIYAH ([facility]) ID Date Data Source [id number] 01/29/2021 03:35:00 PM EDT AALIYAH ([facility]) Name Value Range Interpretation Code Description Data Radha rce(s) Supporting Document(s) reticulocyte % 0.9 % 0.5-1.5 Reticulocyte % AALIYAH ([facility]) reticulocyte # 40.0 10 17-77 Reticulocyte # AALIYAH ([facility]) retic hemoglobin equivalent 33.3 pg 24-36 Retic He moglobin Equivalent AALIYAH ([facility]) ID Date Data Source [id number] 01/29/2021 03:35:00 PM EDT AALIYAH ([facility]) Name Value Range Interpretation Code Description Data Radha rce(s) Supporting Document(s) white blood count 9.1 10 4.0-10.0 White Blood Count AALIYAH ([facility]) red blood count 4.44 10 4.00-5.40 Red Blood Count ATHE NA ([facility]) hemoglobin 12.6 g/dL 12.0-15.5 Hemoglobin AALIYAH ([facility]) hematocrit 38.1 % 36.0-47.0 Hematocrit AALIYAH ([facility]) mean corpuscular volume 85.8 fL 80.0-96.0 Mean Corpusc ular Volume AALIYAH ([facility]) mean corpuscular hemoglobin 28.4 pg 27.0-33.0 Mean Cor puscular Hemoglobin AALIYAH ([facility]) mean corpuscular HGB conc 33.1 g/dL 32.0-36.5 Mean Corpu scular HGB Conc AALIYAH ([facility]) red cell distribution width 14.0 % 11.5-14.5 Red Cell Distribution Width AALIYAH ([facility]) platelet count, automated 357 10 150-450 Platelet C ount, Automated AALIYAH ([facility]) neutrophils % 70.1 % 36.0-66.0 Above high normal Neutrophils % A THENA ([facility]) lymph % 22.8 % 24.0-44.0 Below low normal Lymph % AALIYAH ( [facility]) mono % 5.0 % 2.0-8.0 Routt % AALIYAH ([facility]) eos % 1.0 % 0.0-3.0 Eos % AALIYAH ([facility]) immature granulocyte % 0.4 % 0-3.0 Immature Gran ulocyte % AALIYAH ([facility]) baso % 0.7 % 0.0-1.0 Baso % AALIYAH ([facility]) nucleated red blood cell % 0.0 % 0-0 Nucleated Red Blood Cell % AALIYAH ([facility]) neutrophils # 6.4 10 1.5-8.5 Neutrophils # AALIYAH ( [facility]) mono # 0.5 10 0.0-0.8 Routt # AALIYAH ([facility]) lymph # 2.1 10 1.5-5.0 Lymph # AALIYAH ([facility]) eos # 0.1 10 0.0-0.5 Eos # AALIYAH ([facility]) baso # 0.1 10 0.0-0.2 Baso # AALIYAH ([facility]) ID Date Data Source [id number] 01/29/2021 03:35:00 PM EDT MCRAE ([facility]) Name Value Range Interpretation Code Description Data Radha rce(s) Supporting Document(s) folate 18.0 NG/mL >5.4 Folate AALIYAH ([facility]) ID Date Data Source [id number] 01/29/2021 03:35:00 PM EDT MCRAE ([facility]) Name Value Range Interpretation Code Description Data Radha rce(s) Supporting Document(s) vitamin B12 level 768 pg/mL 247-911 Vitamin B12 Level MCRAE ([facility]) ID Date Data Source [id number] 01/29/2021 03:35:00 PM EDT MCRAE ([facility]) Name Value Range Interpretation Code Description Data Radha rce(s) Supporting Document(s) ferritin 64 NG/mL 8-252 Ferritin AALIYAH ([facility]) ID Date Data Source [id number] 01/29/2021 03:35:00 PM EDT MCRAE ([facility]) Name Value Range Interpretation Code Description Data Radha rce(s) Supporting Document(s) iron (fe) 41 ug/dL 50-170 Below low normal Iron (Fe) AALIYAH ( [facility]) total iron binding capacity 267 ug/dL 250-450 Total Ir on Binding Capacity MCRAE ([facility]) percent saturation 15.4 % 13.2-45.0 Percent Saturatio n [facility]) ID Date Data Source [id number] 01/29/2021 03:35:00 PM EDT MCRAE ([facility]) Name Value Range Interpretation Code Description Data Radha rce(s) Supporting Document(s) glucose, fasting 101 mg/dL 70-100 Above high normal Glucose, Fas ting MCRAE ([facility]) blood urea nitrogen 7 mg/dL 7-18 Blood Urea Nitro gen MCRAE ([facility]) creatinine for GFR 0.66 mg/dL 0.55-1.30 Creatinine for GF R MCRAE ([facility]) glomerular filtration rate > 60.0 >60 Glomerula r Filtration Rate AALIYAH ([facility]) sodium level 138 mEq/L 136-145 Sodium Level AALIYAH ([facility]) potassium serum 3.5 mEq/L 3.5-5.1 Potassium Serum ATH NA ([facility]) chloride level 107 mEq/L 98-107 Chloride Level MCRAE ([facility]) carbon dioxide level 26 mEq/L 21-32 Carbon Dioxide Level MCRAE ([facility]) anion gap 5 mEq/L 8-16 Below low normal Anion Gap MCRAE ( [facility]) calcium level 8.4 mg/dL 8.5-10.1 Below low normal Calcium Level [facility]) AST/SGOT 15 U/L 7-37 AST/SGOT AALIYAH ([facility]) ALT/SGPT 31 U/L 12-78 ALT/SGPT AALIYAH ([facility]) alkaline phosphatase 65 U/L 45-117 Alkaline Phosph atase AALIYAH ([facility]) bilirubin,total 0.3 mg/dL 0.2-1.0 Bilirubin,total ATHE NA ([facility]) total protein 7.7 gm/dL 6.4-8.2 Total Protein AALIYAH ( [facility]) albumin 4.0 gm/dL 3.2-5.2 Albumin AALIYAH ([facility]) albumin/globulin ratio 1.2-2.2 Below low normal Albumin /globulin Ratio AALIYAH ([facility]) ID Date Data Source [id number] 01/29/2021 03:35:00 PM EDT AALIYAH ([facility]) Name Value Range Interpretation Code Description Data Radha rce(s) Supporting Document(s) reticulocyte % 0.9 % 0.5-1.5 Reticulocyte % AALIYAH ([facility]) retic hemoglobin equivalent 33.3 pg 24-36 Retic He moglobin Equivalent AALIYAH ([facility]) reticulocyte # 40.0 10 17-77 Reticulocyte # AALIYAH ([facility]) ID Date Data Source [id number] 01/29/2021 03:35:00 PM EDT AALIYAH ([facility]) Name Value Range Interpretation Code Description Data Radha rce(s) Supporting Document(s) white blood count 9.1 10 4.0-10.0 White Blood Count AALIYAH ([facility]) red blood count 4.44 10 4.00-5.40 Red Blood Count ATHE NA ([facility]) hemoglobin 12.6 g/dL 12.0-15.5 Hemoglobin AALIYAH ([facility]) hematocrit 38.1 % 36.0-47.0 Hematocrit AALIYAH ([facility]) mean corpuscular volume 85.8 fL 80.0-96.0 Mean Corpusc ular Volume AALIYAH ([facility]) mean corpuscular hemoglobin 28.4 pg 27.0-33.0 Mean Cor puscular Hemoglobin AALIYAH ([facility]) mean corpuscular HGB conc 33.1 g/dL 32.0-36.5 Mean Corpu scular HGB Conc AALIYAH ([facility]) platelet count, automated 357 10 150-450 Platelet C ount, Automated AALIYAH ([facility]) red cell distribution width 14.0 % 11.5-14.5 Red Cell Distribution Width AALIYAH ([facility]) neutrophils % 70.1 % 36.0-66.0 Above high normal Neutrophils % A THENA ([facility]) lymph % 22.8 % 24.0-44.0 Below low normal Lymph % MCRAE ( [facility]) mono % 5.0 % 2.0-8.0 Routt % MCRAE ([facility]) eos % 1.0 % 0.0-3.0 Eos % AALIYAH ([facility]) immature granulocyte % 0.4 % 0-3.0 Immature Gran ulocyte % AALIYAH ([facility]) baso % 0.7 % 0.0-1.0 Baso % AALIYAH ([facility]) nucleated red blood cell % 0.0 % 0-0 Nucleated Red Blood Cell % MCRAE ([facility]) neutrophils # 6.4 10 1.5-8.5 Neutrophils # AALIYAH ( [facility]) lymph # 2.1 10 1.5-5.0 Lymph # AALIYAH ([facility]) mono # 0.5 10 0.0-0.8 Routt # AALIYAH ([facility]) eos # 0.1 10 0.0-0.5 Eos # AALIYAH ([facility]) baso # 0.1 10 0.0-0.2 Baso # AALIYAH ([facility]) ID Date Data Source [id number] 01/29/2021 03:35:00 PM EDT MCRAE ([facility]) Name Value Range Interpretation Code Description Data Radha rce(s) Supporting Document(s) reticulocyte % 0.9 % 0.5-1.5 Reticulocyte % AALIYAH ([facility]) reticulocyte # 40.0 10 17-77 Reticulocyte # AALIYAH ([facility]) retic hemoglobin equivalent 33.3 pg 24-36 Retic He moglobin Equivalent AALIYAH ([facility]) ID Date Data Source [id number] 01/29/2021 03:35:00 PM EDT AALIYAH ([facility]) Name Value Range Interpretation Code Description Data Radha rce(s) Supporting Document(s) white blood count 9.1 10 4.0-10.0 White Blood Count AALIYAH ([facility]) red blood count 4.44 10 4.00-5.40 Red Blood Count ATHE ([facility]) hemoglobin 12.6 g/dL 12.0-15.5 Hemoglobin AALIYAH ([facility]) hematocrit 38.1 % 36.0-47.0 Hematocrit AALIYAH ([facility]) mean corpuscular volume 85.8 fL 80.0-96.0 Mean Corpusc ular Volume AALIYAH ([facility]) mean corpuscular hemoglobin 28.4 pg 27.0-33.0 Mean Cor puscular Hemoglobin AALIYAH ([facility]) mean corpuscular HGB conc 33.1 g/dL 32.0-36.5 Mean Corpu scular HGB Conc AALIYAH ([facility]) red cell distribution width 14.0 % 11.5-14.5 Red Cell Distribution Width AALIYAH ([facility]) platelet count, automated 357 10 150-450 Platelet C ount, Automated AALIYAH ([facility]) neutrophils % 70.1 % 36.0-66.0 Above high normal Neutrophils % A THENA ([facility]) lymph % 22.8 % 24.0-44.0 Below low normal Lymph % AALIYAH ( [facility]) mono % 5.0 % 2.0-8.0 Routt % AALIYAH ([facility]) eos % 1.0 % 0.0-3.0 Eos % AALIYAH ([facility]) baso % 0.7 % 0.0-1.0 Baso % AALIYAH ([facility]) immature granulocyte % 0.4 % 0-3.0 Immature Gran ulocyte % AALIYAH ([facility]) nucleated red blood cell % 0.0 % 0-0 Nucleated Red Blood Cell % AALIYAH ([facility]) neutrophils # 6.4 10 1.5-8.5 Neutrophils # AALIYAH ( [facility]) lymph # 2.1 10 1.5-5.0 Lymph # AALIYAH ([facility]) eos # 0.1 10 0.0-0.5 Eos # AALIYAH ([facility]) mono # 0.5 10 0.0-0.8 Routt # AALIYAH ([facility]) baso # 0.1 10 0.0-0.2 Baso # AALIYAH ([facility]) ID Date Data Source [id number] 01/29/2021 03:35:00 PM EDT AALIYAH ([facility]) Name Value Range Interpretation Code Description Data Radha rce(s) Supporting Document(s) folate 18.0 NG/mL >5.4 Folate AALIYAH ([facility]) ID Date Data Source [id number] 01/29/2021 03:35:00 PM EDT AALIYAH ([facility]) Name Value Range Interpretation Code Description Data Radha rce(s) Supporting Document(s) vitamin B12 level 768 pg/mL 247-911 Vitamin B12 Level AALIYAH ([facility]) ID Date Data Source [id number] 01/29/2021 03:35:00 PM EDT AALIYAH ([facility]) Name Value Range Interpretation Code Description Data Radha rce(s) Supporting Document(s) ferritin 64 NG/mL 8-252 Ferritin AALIYAH ([facility]) ID Date Data Source [id number] 01/29/2021 03:35:00 PM EDT MCRAE ([facility]) Name Value Range Interpretation Code Description Data Radha rce(s) Supporting Document(s) iron (fe) 41 ug/dL 50-170 Below low normal Iron (Fe) MCRAE ( [facility]) total iron binding capacity 267 ug/dL 250-450 Total Ir on Binding Capacity MCRAE ([facility]) percent saturation 15.4 % 13.2-45.0 Percent Saturatio n MCRAE ([facility]) ID Date Data Source [id number] 01/29/2021 03:35:00 PM EDT MCRAE ([facility]) Name Value Range Interpretation Code Description Data Radha rce(s) Supporting Document(s) glucose, fasting 101 mg/dL 70-100 Above high normal Glucose, Fas ting MCRAE ([facility]) blood urea nitrogen 7 mg/dL 7-18 Blood Urea Nitro gen MCRAE ([facility]) creatinine for GFR 0.66 mg/dL 0.55-1.30 Creatinine for GF R AALIYAH ([facility]) glomerular filtration rate > 60.0 >60 Glomerula r Filtration Rate MCRAE ([facility]) sodium level 138 mEq/L 136-145 Sodium Level MCRAE ([facility]) potassium serum 3.5 mEq/L 3.5-5.1 Pot[facility] chloride level 107 mEq/L 98-107 Chloride Level MCRAE ([facility]) carbon dioxide level 26 mEq/L 21-32 Carbon Dioxide Level AALIYAH ([facility]) calcium level 8.4 mg/dL 8.5-10.1 Below low normal Calcium Level AT [facility]) anion gap 5 mEq/L 8-16 Below low normal Anion Gap MCRAE ( [facility]) AST/SGOT 15 U/L 7-37 AST/SGOT MCRAE ([facility]) ALT/SGPT 31 U/L 12-78 ALT/SGPT AALIYAH ([facility]) alkaline phosphatase 65 U/L 45-117 Alkaline Phosph atase AALIYAH ([facility]) bilirubin,total 0.3 mg/dL 0.2-1.0 Bilirubin,total ATHE NA ([facility]) total protein 7.7 gm/dL 6.4-8.2 Total Protein AALIYAH ( [facility]) albumin 4.0 gm/dL 3.2-5.2 Albumin AALIYAH ([facility]) albumin/globulin ratio 1.2-2.2 Below low normal Albumin /globulin Ratio AALIYAH ([facility]) ID Date Data Source [id number] 01/29/2021 03:35:00 PM EDT AALIYAH ([facility]) Name Value Range Interpretation Code Description Data Radha rce(s) Supporting Document(s) reticulocyte % 0.9 % 0.5-1.5 Reticulocyte % AALIYAH ([facility]) reticulocyte # 40.0 10 17-77 Reticulocyte # AALIYAH ([facility]) retic hemoglobin equivalent 33.3 pg 24-36 Retic He moglobin Equivalent AALIYAH ([facility]) ID Date Data Source [id number] 01/29/2021 03:35:00 PM EDT AALIYAH ([facility]) Name Value Range Interpretation Code Description Data Radha rce(s) Supporting Document(s) white blood count 9.1 10 4.0-10.0 White Blood Count AALIYAH ([facility]) red blood count 4.44 10 4.00-5.40 Red Blood Count ATHE NA ([facility]) hemoglobin 12.6 g/dL 12.0-15.5 Hemoglobin AALIYAH ([facility]) hematocrit 38.1 % 36.0-47.0 Hematocrit AALIYAH ([facility]) mean corpuscular volume 85.8 fL 80.0-96.0 Mean Corpusc ular Volume AALIYAH ([facility]) mean corpuscular hemoglobin 28.4 pg 27.0-33.0 Mean Cor puscular Hemoglobin AALIYAH ([facility]) mean corpuscular HGB conc 33.1 g/dL 32.0-36.5 Mean Corpu scular HGB Conc AALIYAH ([facility]) red cell distribution width 14.0 % 11.5-14.5 Red Cell Distribution Width AALIYAH ([facility]) platelet count, automated 357 10 150-450 Platelet C ount, Automated AALIYAH ([facility]) neutrophils % 70.1 % 36.0-66.0 Above high normal Neutrophils % A THENA ([facility]) lymph % 22.8 % 24.0-44.0 Below low normal Lymph % AALIYAH ( [facility]) mono % 5.0 % 2.0-8.0 Routt % AALIYAH ([facility]) eos % 1.0 % 0.0-3.0 Eos % AALIYAH ([facility]) baso % 0.7 % 0.0-1.0 Baso % AALIYAH ([facility]) immature granulocyte % 0.4 % 0-3.0 Immature Gran ulocyte % AALIYAH ([facility]) neutrophils # 6.4 10 1.5-8.5 Neutrophils # AALIYAH ( [facility]) nucleated red blood cell % 0.0 % 0-0 Nucleated Red Blood Cell % AALIYAH ([facility]) lymph # 2.1 10 1.5-5.0 Lymph # AALIYAH ([facility]) mono # 0.5 10 0.0-0.8 Routt # AALIYAH ([facility]) baso # 0.1 10 0.0-0.2 Baso # [facility]AH [facility] [facility]) eos # 0.1 10 0.0-0.5 Eos # AALIYAH ([facility]) ID Date Data Source [id number] 01/29/2021 03:35:00 PM EDT MCRAE ([facility]) Name Value Range Interpretation Code Description Data Radha rce(s) Supporting Document(s) folate 18.0 NG/mL >5.4 Folate MCRAE ([facility]) ID Date Data Source [id number] 01/29/2021 03:35:00 PM EDT MCRAE ([facility]) Name Value Range Interpretation Code Description Data Radha rce(s) Supporting Document(s) vitamin B12 level 768 pg/mL 247-911 Vitamin B12 Level AALIYAH ([facility]) ID Date Data Source [id number] 01/29/2021 03:35:00 PM EDT AALIYAH ([facility]) Name Value Range Interpretation Code Description Data Radha rce(s) Supporting Document(s) ferritin 64 NG/mL 8-252 Ferritin AALIYAH ([facility]) ID Date Data Source [id number] 01/29/2021 03:35:00 PM EDT MCRAE ([facility]) Name Value Range Interpretation Code Description Data Radha rce(s) Supporting Document(s) iron (fe) 41 ug/dL 50-170 Below low normal Iron (Fe) AALIYAH ( [facility]) total iron binding capacity 267 ug/dL 250-450 Total Ir on Binding Capacity MCRAE ([facility]) percent saturation 15.4 % 13.2-45.0 Percent Saturatio n MCRAE ([facility]) ID Date Data Source [id number] 01/29/2021 03:35:00 PM EDT AALIYAH ([facility]) Name Value Range Interpretation Code Description Data Radha rce(s) Supporting Document(s) glucose, fasting 101 mg/dL 70-100 Above high normal Glucose, Fas ting AALIYAH ([facility]) blood urea nitrogen 7 mg/dL 7-18 Blood Urea Nitro gen AALIYAH ([facility]) glomerular filtration rate > 60.0 >60 Glomerula r Filtration Rate AALIYAH ([facility]) creatinine for GFR 0.66 mg/dL 0.55-1.30 Creatinine for GF R AALIYAH ([facility]) sodium level 138 mEq/L 136-145 Sodium Level AALIYAH ([facility]) potassium serum 3.5 mEq/L 3.5-5.1 Potassium Serum ATHE NA ([facility]) chloride level 107 mEq/L 98-107 Chloride Level AALIYAH ([facility]) carbon dioxide level 26 mEq/L 21-32 Carbon Dioxide Level AALIYAH ([facility]) anion gap 5 mEq/L 8-16 Below low normal Anion Gap AALIYAH ( [facility]) calcium level 8.4 mg/dL 8.5-10.1 Below low normal Calcium Level AT RITO ([facility]) AST/SGOT 15 U/L 7-37 AST/SGOT AALIYAH ([facility]) ALT/SGPT 31 U/L 12-78 ALT/SGPT AALIYAH ([facility]) alkaline phosphatase 65 U/L 45-117 Alkaline Phosph atase AALIYAH ([facility]) bilirubin,total 0.3 mg/dL 0.2-1.0 Bilirubin,total ATHE ([facility]) total protein 7.7 gm/dL 6.4-8.2 Total Protein AALIYAH ( [facility]) albumin 4.0 gm/dL 3.2-5.2 Albumin AALIYAH ([facility]) albumin/globulin ratio 1.2-2.2 Below low normal Albumin /globulin Ratio AALIYAH ([facility]) ID Date Data Source [id number] 01/29/2021 03:28:00 PM EDT [facility]) Name Value Range Interpretation Code Description Data Radha rce(s) Supporting Document(s) tissue transglutaminase IgA <2 0-3 Tissue T ransglutaminase IgA AALIYAH ([facility]) ID Date Data Source [id number] 01/29/2021 03:28:00 PM EDT [facility]) Name Value Range Interpretation Code Description Data Radha rce(s) Supporting Document(s) tissue transglutaminase IgA <2 0-3 [facility] Date Data Source [id number] 01/29/2021 03:28:00 PM EDT AALIYAH ([facility]) Name Value Range Interpretation Code Description Data Radha rce(s) Supporting Document(s) tissue transglutaminase IgA <2 0-3 Tissue T ransglutaminase IgA AALIYAH ([facility]) ID Date Data Source [id number] 01/29/2021 03:28:00 PM EDT AALIYAH ([facility]) Name Value Range Interpretation Code Description Data Radha rce(s) Supporting Document(s) tissue transglutaminase IgA <2 0-3 Tissue T ransglutaminase IgA AALIYAH ([facility]) ID Date Data Source [id number] 12/16/2020 03:21:00 PM EDT MCRAE ([facility]) Name Value Range Interpretation Code Description Data Radha rce(s) Supporting Document(s) ferritin 86 NG/mL 8-252 Ferritin AALIYAH ([facility]) ID Date Data Source [id number] 12/16/2020 03:21:00 [facility] Name Value Range Interpretation Code Description Data Radha rce(s) Supporting Document(s) iron (fe) 36 ug/dL 50-170 Below low normal Iron (Fe) AALIYAH ( [facility]) total iron binding capacity 239 ug/dL 250-450 Below low nor mal Total Iron Binding Capacity AALIYAH ([facility]) percent saturation 15.1 % 13.2-45.0 Percent Saturatio n MCRAE ([facility]) ID Date Data Source [id number] 12/16/2020 03:21:00 PM [facility] Name Value Range Interpretation Code Description Data Radha rce(s) Supporting Document(s) glucose, fasting 114 mg/dL 70-100 Above high normal Glucose, Fas ting AALIYAH ([facility]) creatinine for GFR 0.59 mg/dL 0.55-1.30 Creatinine for GF R AALIYAH ([facility]) blood urea nitrogen 6 mg/dL 7-18 Below low normal Blood Urea Nitrogen AALIYAH ([facility]) sodium level 139 mEq/L 136-145 Sodium Level AALIYAH ([facility]) glomerular filtration rate > 60.0 >60 Glomerula r Filtration Rate AALIYAH ([facility]) potassium serum 3.5 mEq/L 3.5-5.1 Potassium Serum ATHE NA ([facility]) chloride level 107 mEq/L 98-107 Chloride Level AALIYAH ([facility]) anion gap 5 mEq/L 8-16 Below low normal Anion Gap AALIYAH ( [facility]) carbon dioxide level 27 mEq/L 21-32 Carbon Dioxide Level AALIYAH ([facility]) AST/SGOT 13 U/L 7-37 AST/SGOT AALIYAH ([facility]) calcium level 8.7 mg/dL 8.5-10.1 Calcium Level AALIYAH ( [facility]) ALT/SGPT 23 U/L 12-78 ALT/SGPT AALIYAH ([facility]) alkaline phosphatase 63 U/L 45-117 Alkaline Phosph atase AALIYAH ([facility]) bilirubin,total 0.3 mg/dL 0.2-1.0 Bilirubin,total ATHE ([facility]) total protein 7.4 gm/dL 6.4-8.2 Total Protein AALIYAH ( [facility]) albumin 3.9 gm/dL 3.2-5.2 Albumin AALIYAH ([facility]) albumin/globulin ratio 1.2-2.2 Below low normal Albumin /globulin Ratio AALIYAH ([facility]) ID Date Data Source [id number] 12/16/2020 03:21:00 PM EDT AALIYAH ([facility]) Name Value Range Interpretation Code Description Data Radha rce(s) Supporting Document(s) white blood count 9.4 10 4.0-10.0 White Blood Count AALIYAH ([facility]) red blood count 4.56 10 4.00-5.40 Red Blood Count ATHE NA ([facility]) hemoglobin 12.3 g/dL 12.0-15.5 Hemoglobin AALIYAH ([facility]) hematocrit 38.2 % 36.0-47.0 Hematocrit AALIYAH ([facility]) mean corpuscular hemoglobin 27.0 pg 27.0-33.0 Mean Cor puscular Hemoglobin AALIYAH ([facility]) mean corpuscular volume 83.8 fL 80.0-96.0 Mean Corpusc ular Volume AALIYAH ([facility]) mean corpuscular HGB conc 32.2 g/dL 32.0-36.5 Mean Corpu scular HGB Conc AALIYAH ([facility]) platelet count, automated 343 10 150-450 Platelet C ount, Automated AALIYAH ([facility]) red cell distribution width 20.4 % 11.5-14.5 Above high no rmal Red Cell Distribution Width AALIYAH ([facility]) neutrophils % 63.1 % 36.0-66.0 Neutrophils % AALIYAH ( [facility]) lymph % 29.3 % 24.0-44.0 Lymph % MCRAE ([facility]) mono % 5.1 % 2.0-8.0 Routt % MCRAE ([facility]) eos % 1.5 % 0.0-3.0 Eos % MCRAE ([facility]) immature granulocyte % 0.3 % 0-3.0 Immature Gran ulocyte % AALIYAH ([facility]) baso % 0.7 % 0.0-1.0 Baso % AALIYAH ([facility]) nucleated red blood cell % 0.0 % 0-0 Nucleated Red Blood Cell % AALIYAH ([facility]) neutrophils # 5.9 10 1.5-8.5 Neutrophils # AALIYAH ( [facility]) lymph # 2.8 10 1.5-5.0 Lymph # MCRAE ([facility]) eos # 0.1 10 0.0-0.5 Eos # AALIYAH ([facility]) mono # 0.5 10 0.0-0.8 Routt # AALIYAH ([facility]) baso # 0.1 10 0.0-0.2 Baso # AALIYAH ([facility]) ID Date Data Source [id number] 12/16/2020 03:21:00 PM EDT MCRAE ([facility]) Name Value Range Interpretation Code Description Data Radha rce(s) Supporting Document(s) ferritin 86 NG/mL 8-252 Ferritin AALIYAH ([facility]) ID Date Data Source [id number] 12/16/2020 03:21:00 PM EDT MCRAE ([facility]) Name Value Range Interpretation Code Description Data Radha rce(s) Supporting Document(s) iron (fe) 36 ug/dL 50-170 Below low normal Iron (Fe) MCRAE ( [facility]) total iron binding capacity 239 ug/dL 250-450 Below low nor mal Total Iron Binding Capacity MCRAE ([facility]) percent saturation 15.1 % 13.2-45.0 Percent Saturatio n MCRAE ([facility]) ID Date Data Source [id number] 12/16/2020 03:21:00 PM EDT [facility]) Name Value Range Interpretation Code Description Data Radha rce(s) Supporting Document(s) glucose, fasting 114 mg/dL 70-100 Above high normal Glucose, Fas ting AALIYAH ([facility]) blood urea nitrogen 6 mg/dL 7-18 Below low normal Blood Urea Nitrogen AALIYAH ([facility]) creatinine for GFR 0.59 mg/dL 0.55-1.30 Creatinine for GF R AALIYAH ([facility]) glomerular filtration rate > 60.0 >60 Glomerula r Filtration Rate AALIYAH ([facility]) sodium level 139 mEq/L 136-145 Sodium Level AALIYAH ([facility]) potassium serum 3.5 mEq/L 3.5-5.1 Potassium Serum ATHE NA ([facility]) chloride level 107 mEq/L 98-107 Chloride Level AALIYAH ([facility]) anion gap 5 mEq/L 8-16 Below low normal Anion Gap AALIYAH ( [facility]) carbon dioxide level 27 mEq/L 21-32 Carbon Dioxide Level AALIYAH ([facility]) AST/SGOT 13 U/L 7-37 AST/SGOT AALIYAH ([facility]) calcium level 8.7 mg/dL 8.5-10.1 Calcium Level AALIYAH ( [facility]) ALT/SGPT 23 U/L 12-78 ALT/SGPT AALIYAH ([facility]) alkaline phosphatase 63 U/L 45-117 Alkaline Phosph atase AALIYAH ([facility]) bilirubin,total 0.3 mg/dL 0.2-1.0 Bilirubin,total ATHE ([facility]) albumin 3.9 gm/dL 3.2-5.2 Albumin AALIYAH ([facility]) total protein 7.4 gm/dL 6.4-8.2 Total Protein AALIYAH ( [facility]) albumin/globulin ratio 1.2-2.2 Below low normal Albumin /globulin Ratio AALIYAH ([facility]) ID Date Data Source [id number] 12/16/2020 03:21:00 PM EDT AALIYAH ([facility]) Name Value Range Interpretation Code Description Data Radha rce(s) Supporting Document(s) red blood count 4.56 10 4.00-5.40 Red Blood Count ATHE NA ([facility]) white blood count 9.4 10 4.0-10.0 White Blood Count AALIYAH ([facility]) hemoglobin 12.3 g/dL 12.0-15.5 Hemoglobin AALIYAH ([facility]) mean corpuscular volume 83.8 fL 80.0-96.0 Mean Corpusc ular Volume AALIYAH ([facility]) hematocrit 38.2 % 36.0-47.0 Hematocrit AALIYAH ([facility]) mean corpuscular hemoglobin 27.0 pg 27.0-33.0 Mean Cor puscular Hemoglobin AALIYAH ([facility]) mean corpuscular HGB conc 32.2 g/dL 32.0-36.5 Mean Corpu scular HGB Conc MCRAE ([facility]) red cell distribution width 20.4 % 11.5-14.5 Above high no rmal Red Cell Distribution Width AALIYAH ([facility]) platelet count, automated 343 10 150-450 Platelet C ount, Automated AALIYAH ([facility]) neutrophils % 63.1 % 36.0-66.0 Neutrophils % AALIYAH ( [facility]) lymph % 29.3 % 24.0-44.0 Lymph % MCRAE ([facility]) eos % 1.5 % 0.0-3.0 Eos % MCRAE ([facility]) mono % 5.1 % 2.0-8.0 Routt % MCRAE ([facility]) baso % 0.7 % 0.0-1.0 Baso % MCRAE ([facility]) immature granulocyte % 0.3 % 0-3.0 Immature Gran ulocyte % MCRAE ([facility]) nucleated red blood cell % 0.0 % 0-0 Nucleated Red Blood Cell % MCRAE ([facility]) neutrophils # 5.9 10 1.5-8.5 Neutrophils # AALIYAH ( [facility]) lymph # 2.8 10 1.5-5.0 Lymph # MCRAE ([facility]) mono # 0.5 10 0.0-0.8 Routt # MCRAE ([facility]) eos # 0.1 10 0.0-0.5 Eos # MCRAE ([facility]) baso # 0.1 10 0.0-0.2 Baso # AALIYAH ([facility]) ID Date Data Source [id number] 12/16/2020 03:21:00 PM EDT MCRAE ([facility]) Name Value Range Interpretation Code Description Data Radha rce(s) Supporting Document(s) ferritin 86 NG/mL 8-252 Ferritin MCRAE ([facility]) ID Date Data Source [id number] 12/16/2020 03:21:00 PM EDT MCRAE ([facility]) Name Value Range Interpretation Code Description Data Radha rce(s) Supporting Document(s) total iron binding capacity 239 ug/dL 250-450 Below low nor mal Total Iron Binding Capacity AALIYAH ([facility]) iron (fe) 36 ug/dL 50-170 Below low normal Iron (Fe) MCRAE ( [facility]) percent saturation 15.1 % 13.2-45.0 Percent Saturatio n AALIYAH ([facility]) ID Date Data Source [id number] 12/16/2020 03:21:00 PM EDT MCRAE ([facility]) Name Value Range Interpretation Code Description Data Radha rce(s) Supporting Document(s) glucose, fasting 114 mg/dL 70-100 Above high normal Glucose, Fas ting AALIYAH ([facility]) blood urea nitrogen 6 mg/dL 7-18 Below low normal Blood Urea Nitrogen AALIYAH ([facility]) creatinine for GFR 0.59 mg/dL 0.55-1.30 Creatinine for GF R AALIYAH ([facility]) glomerular filtration rate > 60.0 >60 Glomerula r Filtration Rate AALIYAH ([facility]) sodium level 139 mEq/L 136-145 Sodium Level AALIYAH ([facility]) potassium serum 3.5 mEq/L 3.5-5.1 Potassium Serum ATHE ([facility]) chloride level 107 mEq/L 98-107 Chloride Level AALIYAH ([facility]) anion gap 5 mEq/L 8-16 Below low normal Anion Gap AALIYAH ( [facility]) carbon dioxide level 27 mEq/L 21-32 Carbon Dioxide Level AALIYAH ([facility]) calcium level 8.7 mg/dL 8.5-10.1 Calcium Level AALIYAH ( [facility]) ALT/SGPT 23 U/L 12-78 ALT/SGPT AALIYAH ([facility]) AST/SGOT 13 U/L 7-37 AST/SGOT AALIYAH ([facility]) alkaline phosphatase 63 U/L 45-117 Alkaline Phosph atase AALIYAH ([facility]) bilirubin,total 0.3 mg/dL 0.2-1.0 Bilirubin,total ATHE NA ([facility]) total protein 7.4 gm/dL 6.4-8.2 Total Protein AALIYAH ( [facility]) albumin 3.9 gm/dL 3.2-5.2 Albumin AALIYAH ([facility]) albumin/globulin ratio 1.2-2.2 Below low normal Albumin /globulin Ratio AALIYAH ([facility]) ID Date Data Source [id number] 12/16/2020 03:21:00 PM EDT MCRAE ([facility]) Name Value Range Interpretation Code Description Data Radha rce(s) Supporting Document(s) white blood count 9.4 10 4.0-10.0 White Blood Count AALIYAH ([facility]) red blood count 4.56 10 4.00-5.40 Red Blood Count ATHE ([facility]) hemoglobin 12.3 g/dL 12.0-15.5 Hemoglobin AALIYAH ([facility]) hematocrit 38.2 % 36.0-47.0 Hematocrit AALIYAH ([facility]) mean corpuscular volume 83.8 fL 80.0-96.0 Mean Corpusc ular Volume AALIYAH ([facility]) mean corpuscular hemoglobin 27.0 pg 27.0-33.0 Mean Cor puscular Hemoglobin AALIYAH ([facility]) mean corpuscular HGB conc 32.2 g/dL 32.0-36.5 Mean Corpu scular HGB Conc AALIYAH ([facility]) red cell distribution width 20.4 % 11.5-14.5 Above high no rmal Red Cell Distribution Width AALIYAH ([facility]) platelet count, automated 343 10 150-450 Platelet C ount, Automated AALIYAH ([facility]) neutrophils % 63.1 % 36.0-66.0 Neutrophils % AALIYAH ( [facility]) lymph % 29.3 % 24.0-44.0 Lymph % AALIYAH ([facility]) mono % 5.1 % 2.0-8.0 Routt % AALIYAH ([facility]) eos % 1.5 % 0.0-3.0 Eos % AALIYAH ([facility]) baso % 0.7 % 0.0-1.0 Baso % AALIYAH ([facility]) immature granulocyte % 0.3 % 0-3.0 Immature Gran ulocyte % AALIYAH ([facility]) nucleated red blood cell % 0.0 % 0-0 Nucleated Red Blood Cell % AALIYAH ([facility]) neutrophils # 5.9 10 1.5-8.5 Neutrophils # AALIYAH ( [facility]) lymph # 2.8 10 1.5-5.0 Lymph # AALIYAH ([facility]) mono # 0.5 10 0.0-0.8 Routt # AALIYAH ([facility]) eos # 0.1 10 0.0-0.5 Eos # AALIYAH ([facility]) baso # 0.1 10 0.0-0.2 Baso # AALIYAH ([facility]) ID Date Data Source [id number] 12/16/2020 03:21:00 PM EDT MCRAE ([facility]) Name Value Range Interpretation Code Description Data Radha rce(s) Supporting Document(s) ferritin 86 NG/mL 8-252 Ferritin MCRAE ([facility]) ID Date Data Source [id number] 12/16/2020 03:21:00 PM EDT MCRAE ([facility]) Name Value Range Interpretation Code Description Data Radha rce(s) Supporting Document(s) iron (fe) 36 ug/dL 50-170 Below low normal Iron (Fe) AALIYAH ( [facility]) total iron binding capacity 239 ug/dL 250-450 Below low nor mal Total Iron Binding Capacity AALIYAH ([facility]) percent saturation 15.1 % 13.2-45.0 Percent Saturatio n AALIYAH ([facility]) ID Date Data Source [id number] 12/16/2020 03:21:00 PM EDT AALIYAH ([facility]) Name Value Range Interpretation Code Description Data Radha rce(s) Supporting Document(s) blood urea nitrogen 6 mg/dL 7-18 Below low normal Blood Urea Nitrogen AALIYAH ([facility]) glucose, fasting 114 mg/dL 70-100 Above high normal Glucose, Fas ting AALIYAH ([facility]) creatinine for GFR 0.59 mg/dL 0.55-1.30 Creatinine for GF R AALIYAH ([facility]) glomerular filtration rate > 60.0 >60 Glomerula r Filtration Rate AALIYAH ([facility]) sodium level 139 mEq/L 136-145 Sodium Level AALIYAH ([facility]) potassium serum 3.5 mEq/L 3.5-5.1 Potassium Serum ATHE NA ([facility]) chloride level 107 mEq/L 98-107 Chloride Level AALIYAH ([facility]) carbon dioxide level 27 mEq/L 21-32 Carbon Dioxide Level AALIYAH ([facility]) anion gap 5 mEq/L 8-16 Below low normal Anion Gap AALIYAH ( [facility]) calcium level 8.7 mg/dL 8.5-10.1 Calcium Level AALIYAH ( [facility]) AST/SGOT 13 U/L 7-37 AST/SGOT AALIYAH ([facility]) ALT/SGPT 23 U/L 12-78 ALT/SGPT AALIYAH ([facility]) alkaline phosphatase 63 U/L 45-117 Alkaline Phosph atase AALIYAH ([facility]) bilirubin,total 0.3 mg/dL 0.2-1.0 Bilirubin,total ATHE NA ([facility]) total protein 7.4 gm/dL 6.4-8.2 Total Protein AALIYAH ( [facility]) albumin/globulin ratio 1.2-2.2 Below low normal Albumin /globulin Ratio AALIYAH ([facility]) albumin 3.9 gm/dL 3.2-5.2 Albumin AALIYAH ([facility]) ID Date Data Source [id number] 12/16/2020 03:21:00 PM EDT AALIYAH ([facility]) Name Value Range Interpretation Code Description Data Radha rce(s) Supporting Document(s) white blood count 9.4 10 4.0-10.0 White Blood Count AALIYAH ([facility]) red blood count 4.56 10 4.00-5.40 Red Blood Count ATHE NA ([facility]) hemoglobin 12.3 g/dL 12.0-15.5 Hemoglobin AALIYAH ([facility]) hematocrit 38.2 % 36.0-47.0 Hematocrit AALIYAH ([facility]) mean corpuscular volume 83.8 fL 80.0-96.0 Mean Corpusc ular Volume AALIYAH ([facility]) mean corpuscular HGB conc 32.2 g/dL 32.0-36.5 Mean Corpu scular HGB Conc AALIYAH ([facility]) mean corpuscular hemoglobin 27.0 pg 27.0-33.0 Mean Cor puscular Hemoglobin AALIYAH ([facility]) red cell distribution width 20.4 % 11.5-14.5 Above high no rmal Red Cell Distribution Width AALIYAH ([facility]) platelet count, automated 343 10 150-450 Platelet C ount, Automated AALIYAH ([facility]) lymph % 29.3 % 24.0-44.0 Lymph % MCRAE ([facility]) neutrophils % 63.1 % 36.0-66.0 Neutrophils % AALIYAH ( [facility]) mono % 5.1 % 2.0-8.0 Routt % AALIYAH ([facility]) eos % 1.5 % 0.0-3.0 Eos % AALIYAH ([facility]) baso % 0.7 % 0.0-1.0 Baso % MCRAE ([facility]) immature granulocyte % 0.3 % 0-3.0 Immature Gran ulocyte % AALIYAH ([facility]) neutrophils # 5.9 10 1.5-8.5 Neutrophils # MCRAE ( [facility]) nucleated red blood cell % 0.0 % 0-0 Nucleated Red Blood Cell % AALIYAH ([facility]) lymph # 2.8 10 1.5-5.0 Lymph # AALIYAH ([facility]) mono # 0.5 10 0.0-0.8 Routt # AALIYAH ([facility]) eos # 0.1 10 0.0-0.5 Eos # AALIYAH ([facility]) baso # 0.1 10 0.0-0.2 Baso # AALIYAH ([facility]) ID Date Data Source [id number] 12/16/2020 03:21:00 PM EDT AALIYAH ([facility]) Name Value Range Interpretation Code Description Data Radha rce(s) Supporting Document(s) ferritin 86 NG/mL 8-252 Ferritin MCRAE ([facility]) ID Date Data Source [id number] 12/16/2020 03:21:00 PM EDT MCRAE ([facility]) Name Value Range Interpretation Code Description Data Radha rce(s) Supporting Document(s) iron (fe) 36 ug/dL 50-170 Below low normal Iron (Fe) [facility]AE ( [facility] [facility]) total iron binding capacity 239 ug/dL 250-450 Below low nor mal Total Iron Binding Capacity MCRAE ([facility]) percent saturation 15.1 % 13.2-45.0 Percent Saturatio n MCRAE ([facility]) ID Date Data Source [id number] 12/16/2020 03:21:00 PM EDT MCRAE ([facility]) Name Value Range Interpretation Code Description Data Radha rce(s) Supporting Document(s) glucose, fasting 114 mg/dL 70-100 Above high normal Glucose, Fas ting MCRAE ([facility]) blood urea nitrogen 6 mg/dL 7-18 Below low normal Blood Urea Nitrogen MCRAE ([facility]) creatinine for GFR 0.59 mg/dL 0.55-1.30 Creatinine for GF R AALIYAH ([facility]) glomerular filtration rate > 60.0 >60 Glomerula r Filtration Rate AALIYAH ([facility]) sodium level 139 mEq/L 136-145 Sodium Level AALIYAH ([facility]) potassium serum 3.5 mEq/L 3.5-5.1 Potassium Serum ATHE NA ([facility]) chloride level 107 mEq/L 98-107 Chloride Level AALIYAH ([facility]) carbon dioxide level 27 mEq/L 21-32 Carbon Dioxide Level AALIYAH ([facility]) anion gap 5 mEq/L 8-16 Below low normal Anion Gap AALIYAH ( [facility]) calcium level 8.7 mg/dL 8.5-10.1 Calcium Level AALIYAH ( [facility]) AST/SGOT 13 U/L 7-37 AST/SGOT AALIYAH ([facility]) ALT/SGPT 23 U/L 12-78 ALT/SGPT AALIYAH ([facility]) alkaline phosphatase 63 U/L 45-117 Alkaline Phosph atase AALIYAH ([facility]) bilirubin,total 0.3 mg/dL 0.2-1.0 Bilirubin,total ATHE NA ([facility]) total protein 7.4 gm/dL 6.4-8.2 Total Protein AALIYAH ( [facility]) albumin/globulin ratio 1.2-2.2 Below low normal Albumin /globulin Ratio AALIYAH ([facility]) albumin 3.9 gm/dL 3.2-5.2 Albumin AALIYAH ([facility]) ID Date Data Source [id number] 12/16/2020 03:21:00 PM EDT AALIYAH ([facility]) Name Value Range Interpretation Code Description Data Radha rce(s) Supporting Document(s) white blood count 9.4 10 4.0-10.0 White Blood Count AALIYAH ([facility]) red blood count 4.56 10 4.00-5.40 Red Blood Count ATHE ([facility]) hemoglobin 12.3 g/dL 12.0-15.5 Hemoglobin AALIYAH ([facility]) hematocrit 38.2 % 36.0-47.0 Hematocrit AALIYAH ([facility]) mean corpuscular volume 83.8 fL 80.0-96.0 Mean Corpusc ular Volume AALIYAH ([facility]) mean corpuscular hemoglobin 27.0 pg 27.0-33.0 Mean Cor puscular Hemoglobin AALIYAH ([facility]) mean corpuscular HGB conc 32.2 g/dL 32.0-36.5 Mean Corpu scular HGB Conc AALIYAH ([facility]) red cell distribution width 20.4 % 11.5-14.5 Above high no rmal Red Cell Distribution Width AALIYAH ([facility]) platelet count, automated 343 10 150-450 Platelet C ount, Automated AALIYAH ([facility]) neutrophils % 63.1 % 36.0-66.0 Neutrophils % MCRAE ( [facility]) lymph % 29.3 % 24.0-44.0 Lymph % MCRAE ([facility]) mono % 5.1 % 2.0-8.0 Routt % AALIYAH ([facility]) eos % 1.5 % 0.0-3.0 Eos % AALIYAH ([facility]) baso % 0.7 % 0.0-1.0 Baso % MCRAE ([facility]) immature granulocyte % 0.3 % 0-3.0 Immature Gran ulocyte % MCRAE ([facility]) nucleated red blood cell % 0.0 % 0-0 Nucleated Red Blood Cell % MCRAE ([facility]) neutrophils # 5.9 10 1.5-8.5 Neutrophils # AALIYAH ( [facility]) lymph # 2.8 10 1.5-5.0 Lymph # AALIYAH ([facility]) eos # 0.1 10 0.0-0.5 Eos # AALIYAH ([facility]) mono # 0.5 10 0.0-0.8 Routt # MCRAE ([facility]) baso # 0.1 10 0.0-0.2 Baso # AALIYAH ([facility]) ID Date Data Source [id number] 11/08/2020 05:01:00 PM EDT MEDENT ([facility]) Name Value Range Interpretation Code Description Data Radha rce(s) Supporting Document(s) Bacteria identified in Urine by Culture Laboratory test result [facility] ([facility]) FULL REPORT IN LAB NOTES ([facility] ). NO GROWTH CLINICAL SIGNIFICANCE 1 ORGANISM ID Date Data Source [id number] 10/16/2020 03:10:00 PM EDT [facility]) Name Value Range Interpretation Code Description Data Radha rce(s) Supporting Document(s) ferritin < 3 8-252 Below low normal Ferritin [facility]) ID Date Data Source [id number] 10/16/2020 03:10:00 PM EDT [facility]) Name Value Range Interpretation Code Description Data Radha rce(s) Supporting Document(s) vitamin B12 level 689 pg/mL Vitamin B12 Level [facility]) folate 9.9 NG/mL Folate [facility]) ID Date Data Source [id number] 10/16/2020 03:10:00 PM EDT [facility]) Name Value Range Interpretation Code Description Data Radha rce(s) Supporting Document(s) total iron binding capacity 349 ug/dL 250-450 Total Ir on Binding Capacity AALIYAH ([facility]) iron (fe) 12 ug/dL 50-170 Below low normal Iron (Fe) MCRAE ( [facility]) percent saturation 3.4 % 13.2-45.0 Below low normal Percent Sat uration [facility]) ID Date Data Source [id number] 10/16/2020 03:10:00 PM EDT [facility]) Name Value Range Interpretation Code Description Data Radha rce(s) Supporting Document(s) glucose, fasting 93 mg/dL 70-100 Glucose, Fasting AT [facility] ([facility]) creatinine for GFR 0.55 mg/dL 0.55-1.30 Creatinine for GF R AALIYAH ([facility]) blood urea nitrogen 10 mg/dL 7-18 Blood Urea Nitro gen AALIYAH ([facility]) glomerular filtration rate > 60.0 >60 Glomerula r Filtration Rate AALIYAH ([facility]) sodium level 141 mEq/L 136-145 Sodium Level AALIYAH ([facility]) potassium serum 3.7 mEq/L 3.5-5.1 Potassium Serum ATHE NA ([facility]) chloride level 109 mEq/L 98-107 Above high normal Chloride Level AALIYAH ([facility]) calcium level 9.1 mg/dL 8.5-10.1 Calcium Level AALIYAH ( [facility]) anion gap 6 mEq/L 8-16 Below low normal Anion Gap AALIYAH ( [facility]) carbon dioxide level 26 mEq/L 21-32 Carbon Dioxide Level AALIYAH ([facility]) AST/SGOT 15 U/L 7-37 AST/SGOT AALIYAH ([facility]) ALT/SGPT 21 U/L 12-78 ALT/SGPT AALIYAH ([facility]) bilirubin,total 0.3 mg/dL 0.2-1.0 Bilirubin,total ATHE ([facility]) alkaline phosphatase 66 U/L 45-117 Alkaline Phosph atase AALIYAH ([facility]) total protein 7.1 gm/dL 6.4-8.2 Total Protein AALIYAH ( [facility]) albumin 3.9 gm/dL 3.2-5.2 Albumin AALIYAH ([facility]) albumin/globulin ratio 1.2-2.2 Albumin/globu lilliam Ratio AALIYAH ([facility]) ID Date Data Source [id number] 10/16/2020 03:10:00 PM EDT AALIYAH ([facility]) Name Value Range Interpretation Code Description Data Radha rce(s) Supporting Document(s) white blood count 9.5 10 4.0-10.0 White Blood Count AALIYAH ([facility]) red blood count 4.23 10 4.00-5.40 Red Blood Count ATHE NA ([facility]) hemoglobin 10.0 g/dL 12.0-15.5 Below low normal Hemoglobin AALIYAH ( [facility]) hematocrit 32.7 % 36.0-47.0 Below low normal Hematocrit AALIYAH ( [facility]) mean corpuscular volume 77.3 fL 80.0-96.0 Below low normal Mean Corpuscular Volume AALIYAH ([facility]) mean corpuscular hemoglobin 23.6 pg 27.0-33.0 Below low nor mal Mean Corpuscular Hemoglobin AALIYAH ([facility]) red cell distribution width 15.2 % 11.5-14.5 Above high no rmal Red Cell Distribution Width AALIYAH ([facility]) mean corpuscular HGB conc 30.6 g/dL 32.0-36.5 Below low josseline l Mean Corpuscular HGB Conc AALIYAH ([facility]) platelet count, automated 352 10 150-450 Platelet C ount, Automated AALIYAH ([facility]) neutrophils % 71.4 % 36.0-66.0 Above high normal Neutrophils % A THENA ([facility]) lymph % 21.0 % 24.0-44.0 Below low normal Lymph % AALIYAH ( [facility]) mono % 5.9 % 2.0-8.0 Routt % AALIYAH ([facility]) baso % 0.5 % 0.0-1.0 Baso % AALIYAH ([facility]) eos % 0.8 % 0.0-3.0 Eos % AALIYAH ([facility]) immature granulocyte % 0.4 % 0-3.0 Immature Gran ulocyte % AALIYAH ([facility]) nucleated red blood cell % 0.0 % 0-0 Nucleated Red Blood Cell % AALIYAH ([facility]) lymph # 2.0 10 1.5-5.0 Lymph # AALIYAH ([facility]) neutrophils # 6.7 10 1.5-8.5 Neutrophils # AALIYAH ( [facility]) mono # 0.6 10 0.0-0.8 Routt # AALIYAH ([facility]) eos # 0.1 10 0.0-0.5 Eos # AALIYAH ([facility]) baso # 0.1 10 0.0-0.2 Baso # AALIYAH ([facility]) ID Date Data Source [id number] 10/16/2020 03:10:00 PM EDT AALIYAH ([facility]) Name Value Range Interpretation Code Description Data Radha rce(s) Supporting Document(s) reticulocyte % 1.4 % 0.5-1.5 Reticulocyte % AALIYAH ([facility]) reticulocyte # 57.8 10 17-77 Reticulocyte # AALIYAH ([facility]) retic hemoglobin equivalent 22.5 pg 24-36 Below low nor mal Retic Hemoglobin Equivalent AALIYAH ([facility]) ID Date Data Source [id number] 10/16/2020 03:10:00 PM EDT AALIYAH ([facility]) Name Value Range Interpretation Code Description Data Radha rce(s) Supporting Document(s) ferritin < 3 8-252 Below low normal Ferritin AALIYAH ( [facility]) ID Date Data Source [id number] 10/16/2020 03:10:00 PM EDT AALIYAH ([facility]) Name Value Range Interpretation Code Description Data Radha rce(s) Supporting Document(s) vitamin B12 level 689 pg/mL Vitamin B12 Level AALIYAH ([facility]) folate 9.9 NG/mL Folate AALIYAH ([facility]) ID Date Data Source [id number] 10/16/2020 03:10:00 PM EDT AALIYAH ([facility]) Name Value Range Interpretation Code Description Data Radha rce(s) Supporting Document(s) iron (fe) 12 ug/dL 50-170 Below low normal Iron (Fe) AALIYAH ( [facility]) total iron binding capacity 349 ug/dL 250-450 Total Ir on Binding Capacity AALIYAH ([facility]) percent saturation 3.4 % 13.2-45.0 Below low normal Percent Sat uration AALIYAH ([facility]) ID Date Data Source [id number] 10/16/2020 03:10:00 PM EDT MCRAE ([facility]) Name Value Range Interpretation Code Description Data Radha rce(s) Supporting Document(s) glucose, fasting 93 mg/dL 70-100 Glucose, Fasting AT [facility] ([facility]) blood urea nitrogen 10 mg/dL 7-18 Blood Urea Nitro gen MCRAE ([facility]) creatinine for GFR 0.55 mg/dL 0.55-1.30 Creatinine for GF R MCRAE ([facility]) glomerular filtration rate > 60.0 >60 Glomerula r Filtration Rate AALIYAH ([facility]) sodium level 141 mEq/L 136-145 Sodium Level AALIYAH ([facility]) potassium serum 3.7 mEq/L 3.5-5.1 Potassium Serum ATHE NA ([facility]) chloride level 109 mEq/L 98-107 Above high normal Chloride Level MCRAE ([facility]) carbon dioxide level 26 mEq/L 21-32 Carbon Dioxide Level AALIYAH ([facility]) anion gap 6 mEq/L 8-16 Below low normal Anion Gap AALIYAH ( [facility]) AST/SGOT 15 U/L 7-37 AST/SGOT AALIYAH ([facility]) calcium level 9.1 mg/dL 8.5-10.1 Calcium Level AALIYAH ( [facility]) ALT/SGPT 21 U/L 12-78 ALT/SGPT AALIYAH ([facility]) alkaline phosphatase 66 U/L 45-117 Alkaline Phosph atase AALIYAH ([facility]) total protein 7.1 gm/dL 6.4-8.2 Total Protein AALIYAH ( [facility]) bilirubin,total 0.3 mg/dL 0.2-1.0 Bilirubin,total ATHE NA ([facility]) albumin/globulin ratio 1.2-2.2 Albumin/globu lilliam Ratio AALIYAH ([facility]) albumin 3.9 gm/dL 3.2-5.2 Albumin AALIYAH ([facility]) ID Date Data Source [id number] 10/16/2020 03:10:00 PM EDT AALIYAH ([facility]) Name Value Range Interpretation Code Description Data Radha rce(s) Supporting Document(s) white blood count 9.5 10 4.0-10.0 White Blood Count AALIYAH ([facility]) red blood count 4.23 10 4.00-5.40 Red Blood Count ATHE NA ([facility]) hemoglobin 10.0 g/dL 12.0-15.5 Below low normal Hemoglobin AALIYAH ( [facility]) hematocrit 32.7 % 36.0-47.0 Below low normal Hematocrit AALIYAH ( [facility]) mean corpuscular volume 77.3 fL 80.0-96.0 Below low normal Mean Corpuscular Volume AALIYAH ([facility]) mean corpuscular HGB conc 30.6 g/dL 32.0-36.5 Below low jossleine l Mean Corpuscular HGB Conc AALIYAH ([facility]) mean corpuscular hemoglobin 23.6 pg 27.0-33.0 Below low nor mal Mean Corpuscular Hemoglobin AALIYAH ([facility]) platelet count, automated 352 10 150-450 Platelet C ount, Automated AALIYAH ([facility]) red cell distribution width 15.2 % 11.5-14.5 Above high no rmal Red Cell Distribution Width AALIYAH ([facility]) neutrophils % 71.4 % 36.0-66.0 Above high normal Neutrophils % A THENA ([facility]) mono % 5.9 % 2.0-8.0 Routt % AALIYAH ([facility]) lymph % 21.0 % 24.0-44.0 Below low normal Lymph % AALIYAH ( [facility]) eos % 0.8 % 0.0-3.0 Eos % AALIYAH ([facility]) immature granulocyte % 0.4 % 0-3.0 Immature Gran ulocyte % AALIYAH ([facility]) baso % 0.5 % 0.0-1.0 Baso % AALIYAH ([facility]) nucleated red blood cell % 0.0 % 0-0 Nucleated Red Blood Cell % AALIYAH ([facility]) neutrophils # 6.7 10 1.5-8.5 Neutrophils # AALIYAH ( [facility]) lymph # 2.0 10 1.5-5.0 Lymph # AALIYAH ([facility]) eos # 0.1 10 0.0-0.5 Eos # AALIYAH ([facility]) mono # 0.6 10 0.0-0.8 Routt # AALIYAH ([facility]) baso # 0.1 10 0.0-0.2 Baso # AALIYAH ([facility]) ID Date Data Source [id number] 10/16/2020 03:10:00 PM EDT MCRAE ([facility]) Name Value Range Interpretation Code Description Data Radha rce(s) Supporting Document(s) reticulocyte % 1.4 % 0.5-1.5 Reticulocyte % AALIYAH ([facility]) reticulocyte # 57.8 10 17-77 Reticulocyte # MCRAE ([facility]) retic hemoglobin equivalent 22.5 pg 24-36 Below low nor mal Retic Hemoglobin Equivalent MCRAE ([facility]) ID Date Data Source [id number] 10/16/2020 03:10:00 PM EDT AALIYAH ([facility]) Name Value Range Interpretation Code Description Data Radha rce(s) Supporting Document(s) ferritin < 3 8-252 Below low normal Ferritin AALIYAH ( [facility]) ID Date Data Source [id number] 10/16/2020 03:10:00 PM EDT [facility]) Name Value Range Interpretation Code Description Data Radha rce(s) Supporting Document(s) folate 9.9 NG/mL Folate AALIYAH ([facility]) vitamin B12 level 689 pg/mL Vitamin B12 Level AALIYAH ([facility]) ID Date Data Source [id number] 10/16/2020 03:10:00 PM EDT [facility]) Name Value Range Interpretation Code Description Data Radha rce(s) Supporting Document(s) iron (fe) 12 ug/dL 50-170 Below low normal Iron (Fe) AALIYAH ( [facility]) percent saturation 3.4 % 13.2-45.0 Below low normal Percent Sat uration AALIYAH ([facility]) total iron binding capacity 349 ug/dL 250-450 Total Ir on Binding Capacity AALIYAH ([facility]) ID Date Data Source [id number] 10/16/2020 03:10:00 PM EDT [facility]) Name Value Range Interpretation Code Description Data Radha rce(s) Supporting Document(s) glucose, fasting 93 mg/dL 70-100 Glucose, Fasting AT [facility]) blood urea nitrogen 10 mg/dL 7-18 Blood Urea Nitro gen AALIYAH ([facility]) glomerular filtration rate > 60.0 >60 Glomerula r Filtration Rate AALIYAH ([facility]) creatinine for GFR 0.55 mg/dL 0.55-1.30 Creatinine for GF R MCRAE ([facility]) potassium serum 3.7 mEq/L 3.5-5.1 Potassium Serum ATHE NA ([facility]) sodium level 141 mEq/L 136-145 Sodium Level AALIYAH ([facility]) chloride level 109 mEq/L 98-107 Above high normal Chloride Level AALIYAH ([facility]) carbon dioxide level 26 mEq/L 21-32 Carbon Dioxide Level AALIYAH ([facility]) calcium level 9.1 mg/dL 8.5-10.1 Calcium Level AALIYAH ( [facility]) anion gap 6 mEq/L 8-16 Below low normal Anion Gap AALIYAH ( [facility]) ALT/SGPT 21 U/L 12-78 ALT/SGPT AALIYAH ([facility]) AST/SGOT 15 U/L 7-37 AST/SGOT AALIYAH ([facility]) bilirubin,total 0.3 mg/dL 0.2-1.0 Bilirubin,total ATHE NA ([facility]) alkaline phosphatase 66 U/L 45-117 Alkaline Phosph atase AALIYAH ([facility]) total protein 7.1 gm/dL 6.4-8.2 Total Protein AALIYAH ( [facility]) albumin 3.9 gm/dL 3.2-5.2 Albumin AALIYAH ([facility]) albumin/globulin ratio 1.2-2.2 Albumin/globu lilliam Ratio AALIYAH ([facility]) ID Date Data Source [id number] 10/16/2020 03:10:00 PM EDT AALIYAH ([facility]) Name Value Range Interpretation Code Description Data Radha rce(s) Supporting Document(s) white blood count 9.5 10 4.0-10.0 White Blood Count AALIYAH ([facility]) hemoglobin 10.0 g/dL 12.0-15.5 Below low normal Hemoglobin AALIYAH ( [facility]) red blood count 4.23 10 4.00-5.40 Red Blood Count ATHE ([facility]) hematocrit 32.7 % 36.0-47.0 Below low normal Hematocrit AALIYAH ( [facility]) mean corpuscular hemoglobin 23.6 pg 27.0-33.0 Below low nor mal Mean Corpuscular Hemoglobin AALIYAH ([facility]) mean corpuscular volume 77.3 fL 80.0-96.0 Below low normal Mean Corpuscular Volume AALIYAH ([facility]) mean corpuscular HGB conc 30.6 g/dL 32.0-36.5 Below low josseline l Mean Corpuscular HGB Conc AALIYAH ([facility]) platelet count, automated 352 10 150-450 Platelet C ount, Automated AALIYAH ([facility]) red cell distribution width 15.2 % 11.5-14.5 Above high no rmal Red Cell Distribution Width AALIYAH ([facility]) lymph % 21.0 % 24.0-44.0 Below low normal Lymph % AALIYAH ( [facility]) neutrophils % 71.4 % 36.0-66.0 Above high normal Neutrophils % A THENA ([facility]) eos % 0.8 % 0.0-3.0 Eos % AALIYAH ([facility]) mono % 5.9 % 2.0-8.0 Routt % AALIYAH ([facility]) baso % 0.5 % 0.0-1.0 Baso % AALIYAH ([facility]) immature granulocyte % 0.4 % 0-3.0 Immature Gran ulocyte % AALIYAH ([facility]) neutrophils # 6.7 10 1.5-8.5 Neutrophils # AALIYAH ( [facility]) nucleated red blood cell % 0.0 % 0-0 Nucleated Red Blood Cell % AALIYAH ([facility]) lymph # 2.0 10 1.5-5.0 Lymph # AALIYAH ([facility]) mono # 0.6 10 0.0-0.8 Routt # AALIYAH ([facility]) baso # 0.1 10 0.0-0.2 Baso # AALIYAH ([facility]) eos # 0.1 10 0.0-0.5 Eos # AALIYAH ([facility]) ID Date Data Source [id number] 10/16/2020 03:10:00 PM EDT MCRAE ([facility]) Name Value Range Interpretation Code Description Data Radha rce(s) Supporting Document(s) reticulocyte % 1.4 % 0.5-1.5 Reticulocyte % AALIYAH ([facility]) reticulocyte # 57.8 10 17-77 Reticulocyte # AALIYAH ([facility]) retic hemoglobin equivalent 22.5 pg 24-36 Below low nor mal Retic Hemoglobin Equivalent MCRAE ([facility]) ID Date Data Source [id number] 10/16/2020 03:10:00 PM EDT MCRAE ([facility]) Name Value Range Interpretation Code Description Data Radha rce(s) Supporting Document(s) ferritin < 3 8-252 Below low normal Ferritin AALIYAH ( [facility]) ID Date Data Source [id number] 10/16/2020 03:10:00 PM EDT MCRAE ([facility]) Name Value Range Interpretation Code Description Data Radha rce(s) Supporting Document(s) vitamin B12 level 689 pg/mL Vitamin B12 Level MCRAE ([facility]) folate 9.9 NG/mL Folate AALIYAH ([facility]) ID Date Data Source [id number] 10/16/2020 03:10:00 PM EDT MCRAE ([facility]) Name Value Range Interpretation Code Description Data Radha rce(s) Supporting Document(s) iron (fe) 12 ug/dL 50-170 Below low normal Iron (Fe) MCRAE ( [facility]) total iron binding capacity 349 ug/dL 250-450 Total Ir on Binding Capacity MCRAE ([facility]) percent saturation 3.4 % 13.2-45.0 Below low normal Percent Sat uration MCRAE ([facility]) ID Date Data Source [id number] 10/16/2020 03:10:00 PM EDT [facility]) Name Value Range Interpretation Code Description Data Radha rce(s) Supporting Document(s) glucose, fasting 93 mg/dL 70-100 Glucose, Fasting AT [facility]) blood urea nitrogen 10 mg/dL 7-18 Blood Urea Nitro gen AALIYAH ([facility]) glomerular filtration rate > 60.0 >60 Glomerula r Filtration Rate AALIYAH ([facility]) creatinine for GFR 0.55 mg/dL 0.55-1.30 Creatinine for GF R AALIYAH ([facility]) sodium level 141 mEq/L 136-145 Sodium Level AALIYAH ([facility]) potassium serum 3.7 mEq/L 3.5-5.1 Potassium Serum ATHE NA [facility]) chloride level 109 mEq/L 98-107 Above high normal Chloride Level AALIYAH ([facility]) carbon dioxide level 26 mEq/L 21-32 Carbon Dioxide Level AALIYAH ([facility]) anion gap 6 mEq/L 8-16 Below low normal Anion Gap AALIYAH ( [facility]) calcium level 9.1 mg/dL 8.5-10.1 Calcium Level AALIYAH ( [facility]) AST/SGOT 15 U/L 7-37 AST/SGOT AALIYAH ([facility]) alkaline phosphatase 66 U/L 45-117 Alkaline Phosph atase AALIYAH ([facility]) ALT/SGPT 21 U/L 12-78 ALT/SGPT AALIYAH ([facility]) total protein 7.1 gm/dL 6.4-8.2 Total Protein AALIYAH ( [facility]) bilirubin,total 0.3 mg/dL 0.2-1.0 Bilirubin,total ATHE ([facility]) albumin 3.9 gm/dL 3.2-5.2 Albumin AALIYAH ([facility]) albumin/globulin ratio 1.2-2.2 Albumin/globu lilliam Ratio AALIYAH ([facility]) ID Date Data Source [id number] 10/16/2020 03:10:00 PM EDT AALIYAH ([facility]) Name Value Range Interpretation Code Description Data Radha rce(s) Supporting Document(s) red blood count 4.23 10 4.00-5.40 Red Blood Count ATHE NA ([facility]) white blood count 9.5 10 4.0-10.0 White Blood Count AALIYAH ([facility]) hematocrit 32.7 % 36.0-47.0 Below low normal Hematocrit AALIYAH ( [facility]) hemoglobin 10.0 g/dL 12.0-15.5 Below low normal Hemoglobin AALIYAH ( [facility]) mean corpuscular volume 77.3 fL 80.0-96.0 Below low normal Mean Corpuscular Volume AALIYAH ([facility]) mean corpuscular HGB conc 30.6 g/dL 32.0-36.5 Below low josseline l Mean Corpuscular HGB Conc AALIYAH ([facility]) mean corpuscular hemoglobin 23.6 pg 27.0-33.0 Below low nor mal Mean Corpuscular Hemoglobin AALIYAH ([facility]) red cell distribution width 15.2 % 11.5-14.5 Above high no rmal Red Cell Distribution Width AALIYAH ([facility]) platelet count, automated 352 10 150-450 Platelet C ount, Automated AALIYAH ([facility]) neutrophils % 71.4 % 36.0-66.0 Above high normal Neutrophils % A THENA ([facility]) lymph % 21.0 % 24.0-44.0 Below low normal Lymph % AALIYAH ( [facility]) eos % 0.8 % 0.0-3.0 Eos % MCRAE ([facility]) mono % 5.9 % 2.0-8.0 Routt % MCRAE ([facility]) immature granulocyte % 0.4 % 0-3.0 Immature Gran ulocyte % MCRAE ([facility]) baso % 0.5 % 0.0-1.0 Baso % AALIYAH ([facility]) neutrophils # 6.7 10 1.5-8.5 Neutrophils # MCRAE ( [facility]) nucleated red blood cell % 0.0 % 0-0 Nucleated Red Blood Cell % MCRAE ([facility]) mono # 0.6 10 0.0-0.8 Routt # AALIYAH ([facility]) lymph # 2.0 10 1.5-5.0 Lymph # AALIYAH ([facility]) eos # 0.1 10 0.0-0.5 Eos # AALIYAH ([facility]) baso # 0.1 10 0.0-0.2 Baso # AALIYAH ([facility]) ID Date Data Source [id number] 10/16/2020 03:10:00 PM EDT MCRAE ([facility]) Name Value Range Interpretation Code Description Data Radha rce(s) Supporting Document(s) reticulocyte % 1.4 % 0.5-1.5 Reticulocyte % AALIYAH ([facility]) retic hemoglobin equivalent 22.5 pg 24-36 Below low nor mal Retic Hemoglobin Equivalent AALIYAH ([facility]) reticulocyte # 57.8 10 17-77 Reticulocyte # AALIYAH ([facility]) ID Date Data Source [id number] 10/16/2020 03:10:00 PM EDT AALIYAH ([facility]) Name Value Range Interpretation Code Description Data Radha rce(s) Supporting Document(s) ferritin < 3 8-252 Below low normal Ferritin AALIYAH ( [facility]) ID Date Data Source [id number] 10/16/2020 03:10:00 PM EDT [facility]) Name Value Range Interpretation Code Description Data Radha rce(s) Supporting Document(s) vitamin B12 level 689 pg/mL Vitamin B12 Level AALIYAH ([facility]) folate 9.9 NG/mL Folate AALIYAH ([facility]) ID Date Data Source [id number] 10/16/2020 03:10:00 PM EDT [facility]) Name Value Range Interpretation Code Description Data Radha rce(s) Supporting Document(s) iron (fe) 12 ug/dL 50-170 Below low normal Iron (Fe) AALIYAH ( [facility]) total iron binding capacity 349 ug/dL 250-450 Total Ir on Binding Capacity AALIYAH ([facility]) percent saturation 3.4 % 13.2-45.0 Below low normal Percent Sat uration AALIYAH ([facility]) ID Date Data Source [id number] 10/16/2020 03:10:00 PM EDT [facility]) Name Value Range Interpretation Code Description Data Radha rce(s) Supporting Document(s) glucose, fasting 93 mg/dL 70-100 Glucose, Fasting AT [facility] ([facility]) blood urea nitrogen 10 mg/dL 7-18 Blood Urea Nitro gen AALIYAH ([facility]) creatinine for GFR 0.55 mg/dL 0.55-1.30 Creatinine for GF R AALIYAH ([facility]) sodium level 141 mEq/L 136-145 Sodium Level AALIYAH ([facility]) glomerular filtration rate > 60.0 >60 Glomerula r Filtration Rate AALIYAH ([facility]) potassium serum 3.7 mEq/L 3.5-5.1 Potassium Serum ATHE NA ([facility]) chloride level 109 mEq/L 98-107 Above high normal Chloride Level AALIYAH ([facility]) anion gap 6 mEq/L 8-16 Below low normal Anion Gap AALIYAH ( [facility]) carbon dioxide level 26 mEq/L 21-32 Carbon Dioxide Level AALIYAH ([facility]) ALT/SGPT 21 U/L 12-78 ALT/SGPT AALIYAH ([facility]) AST/SGOT 15 U/L 7-37 AST/SGOT AALIYAH ([facility]) calcium level 9.1 mg/dL 8.5-10.1 Calcium Level AALIYAH ( [facility]) alkaline phosphatase 66 U/L 45-117 Alkaline Phosph atase AALIYAH ([facility]) bilirubin,total 0.3 mg/dL 0.2-1.0 Bilirubin,total ATHE ([facility]) total protein 7.1 gm/dL 6.4-8.2 Total Protein AALIYAH ( [facility]) albumin 3.9 gm/dL 3.2-5.2 Albumin AALIYAH ([facility]) albumin/globulin ratio 1.2-2.2 Albumin/globu lilliam Ratio AALIYAH ([facility]) ID Date Data Source [id number] 10/16/2020 03:10:00 PM EDT AALIYAH ([facility]) Name Value Range Interpretation Code Description Data Radha rce(s) Supporting Document(s) white blood count 9.5 10 4.0-10.0 White Blood Count AALIYAH ([facility]) red blood count 4.23 10 4.00-5.40 Red Blood Count ATHE NA ([facility]) hemoglobin 10.0 g/dL 12.0-15.5 Below low normal Hemoglobin AALIYAH ( [facility]) mean corpuscular volume 77.3 fL 80.0-96.0 Below low normal Mean Corpuscular Volume AALIYAH ([facility]) hematocrit 32.7 % 36.0-47.0 Below low normal Hematocrit AALIYAH ( [facility]) mean corpuscular hemoglobin 23.6 pg 27.0-33.0 Below low nor mal Mean Corpuscular Hemoglobin AALIYAH ([facility]) mean corpuscular HGB conc 30.6 g/dL 32.0-36.5 Below low josseline l Mean Corpuscular HGB Conc AALIYAH ([facility]) red cell distribution width 15.2 % 11.5-14.5 Above high no rmal Red Cell Distribution Width AALIYAH ([facility]) platelet count, automated 352 10 150-450 Platelet C ount, Automated AALIYAH ([facility]) neutrophils % 71.4 % 36.0-66.0 Above high normal Neutrophils % A THENA ([facility]) lymph % 21.0 % 24.0-44.0 Below low normal Lymph % AALIYAH ( [facility]) mono % 5.9 % 2.0-8.0 Routt % AALIYAH ([facility]) eos % 0.8 % 0.0-3.0 Eos % AALIYAH ([facility]) baso % 0.5 % 0.0-1.0 Baso % AALIYAH ([facility]) immature granulocyte % 0.4 % 0-3.0 Immature Gran ulocyte % AALIYAH ([facility]) neutrophils # 6.7 10 1.5-8.5 Neutrophils # AALIYAH ( [facility]) nucleated red blood cell % 0.0 % 0-0 Nucleated Red Blood Cell % AALIYAH ([facility]) lymph # 2.0 10 1.5-5.0 Lymph # AALIYAH ([facility]) mono # 0.6 10 0.0-0.8 Routt # AALIYAH ([facility]) eos # 0.1 10 0.0-0.5 Eos # AALIYAH ([facility]) baso # 0.1 10 0.0-0.2 Baso # AALIYAH ([facility]) ID Date Data Source [id number] 10/16/2020 03:10:00 PM EDT AALIYAH ([facility]) Name Value Range Interpretation Code Description Data Radha rce(s) Supporting Document(s) reticulocyte % 1.4 % 0.5-1.5 Reticulocyte % AALIYAH ([facility]) reticulocyte # 57.8 10 17-77 Reticulocyte # AALIYAH ([facility]) retic hemoglobin equivalent 22.5 pg 24-36 Below low nor mal Retic Hemoglobin Equivalent MCRAE ([facility]) ID Date Data Source [id number] 08/30/2020 05:37:00 AM EST AALIYAH ([facility]) Name Value Range Interpretation Code Description Data Radha rce(s) Supporting Document(s) magnesium level 2.0 mg/dL 1.8-2.4 Magnesium Level ATHE NA ([facility]) ID Date Data Source [id number] 08/30/2020 05:37:00 AM EST MCRAE ([facility]) Name Value Range Interpretation Code Description Data Radha rce(s) Supporting Document(s) blood urea nitrogen 5 mg/dL 7-18 Below low normal Blood Urea Nitrogen AALIYAH ([facility]) glucose, fasting 91 mg/dL 70-100 Glucose, Fasting AT [facility] ([facility]) glomerular filtration rate > 60.0 >60 Glomerula r Filtration Rate AALIYAH ([facility]) sodium level 140 mEq/L 136-145 Sodium Level AALIYAH ([facility]) creatinine for GFR 0.60 mg/dL 0.55-1.30 Creatinine for GF R AALIYAH ([facility]) chloride level 107 mEq/L 98-107 Chloride Level MCRAE ([facility]) potassium serum 3.6 mEq/L 3.5-5.1 Potassium Serum ATHE NA ([facility]) anion gap 8 mEq/L 8-16 Anion Gap AALIYAH ([facility]) carbon dioxide level 25 mEq/L 21-32 Carbon Dioxide Level AALIYAH ([facility]) calcium level 8.5 mg/dL 8.5-10.1 Calcium Level AALIYAH ( [facility]) ALT/SGPT 22 U/L 12-78 ALT/SGPT AALIYAH ([facility]) AST/SGOT 17 U/L 7-37 AST/SGOT AALIYAH ([facility]) bilirubin,total 0.6 mg/dL 0.2-1.0 Bilirubin,total ATHE NA ([facility]) total protein 6.8 gm/dL 6.4-8.2 Total Protein AALIYAH ( [facility]) alkaline phosphatase 70 U/L 45-117 Alkaline Phosph atase AALIYAH ([facility]) albumin 3.5 gm/dL 3.2-5.2 Albumin AALIYAH ([facility]) albumin/globulin ratio 1.2-2.2 Below low normal Albumin /globulin Ratio AALIYAH ([facility]) ID Date Data Source [id number] 08/30/2020 05:37:00 AM EST AALIYAH ([facility]) Name Value Range Interpretation Code Description Data Radha rce(s) Supporting Document(s) white blood count 5.0 10 4.0-10.0 White Blood Count AALIYAH ([facility]) hemoglobin 9.9 g/dL 12.0-15.5 Below low normal Hemoglobin AALIYAH ( [facility]) red blood count 4.17 10 4.00-5.40 Red Blood Count ATHE ([facility]) hematocrit 33.8 % 36.0-47.0 Below low normal Hematocrit AALIYAH ( [facility]) mean corpuscular volume 81.1 fL 80.0-96.0 Mean Corpusc ular Volume AALIYAH ([facility]) mean corpuscular hemoglobin 23.7 pg 27.0-33.0 Below low nor mal Mean Corpuscular Hemoglobin AALIYAH ([facility]) mean corpuscular HGB conc 29.3 g/dL 32.0-36.5 Below low josseline l Mean Corpuscular HGB Conc AALIYAH ([facility]) red cell distribution width 15.9 % 11.5-14.5 Above high no rmal Red Cell Distribution Width AALIYAH ([facility]) platelet count, automated 359 10 150-450 Platelet C ount, Automated AALIYAH ([facility]) nucleated red blood cell % 0.0 % 0-0 Nucleated Red Blood Cell % AALIYAH ([facility]) ID Date Data Source [id number] 08/30/2020 05:37:00 AM EST [facility]) Name Value Range Interpretation Code Description Data Radha rce(s) Supporting Document(s) magnesium level 2.0 mg/dL 1.8-2.4 [facility] ID Date Data Source [id number] 08/30/2020 05:37:00 AM EST [facility]) Name Value Range Interpretation Code Description Data Radha rce(s) Supporting Document(s) glucose, fasting 91 mg/dL 70-100 Glucose, Fasting AT [facility]) blood urea nitrogen 5 mg/dL 7-18 Below low normal Blood Urea Nitrogen AALIYAH ([facility]) creatinine for GFR 0.60 mg/dL 0.55-1.30 Creatinine for GF R AALIYAH ([facility]) glomerular filtration rate > 60.0 >60 Glomerula r Filtration Rate AALIYAH ([facility]) sodium level 140 mEq/L 136-145 Sodium Level AALIYAH ([facility]) potassium serum 3.6 mEq/L 3.5-5.1 Potassium Serum ATHE NA ([facility]) chloride level 107 mEq/L 98-107 Chloride Level MCRAE ([facility]) anion gap 8 mEq/L 8-16 Anion Gap AALIYAH ([facility]) carbon dioxide level 25 mEq/L 21-32 Carbon Dioxide Level AALIYAH ([facility]) calcium level 8.5 mg/dL 8.5-10.1 Calcium Level AALIYAH ( [facility]) AST/SGOT 17 U/L 7-37 AST/SGOT AALIYAH ([facility]) ALT/SGPT 22 U/L 12-78 ALT/SGPT AALIYAH ([facility]) alkaline phosphatase 70 U/L 45-117 Alkaline Phosph atase AALIYAH ([facility]) bilirubin,total 0.6 mg/dL 0.2-1.0 Bilirubin,total ATHE NA ([facility]) total protein 6.8 gm/dL 6.4-8.2 Total Protein AALIYAH ( [facility]) albumin 3.5 gm/dL 3.2-5.2 Albumin AALIYAH ([facility]) albumin/globulin ratio 1.2-2.2 Below low normal Albumin /globulin Ratio AALIYAH ([facility]) ID Date Data Source [id number] 08/30/2020 05:37:00 AM EST AALIYAH ([facility]) Name Value Range Interpretation Code Description Data Radha rce(s) Supporting Document(s) white blood count 5.0 10 4.0-10.0 White Blood Count AALIYAH ([facility]) red blood count 4.17 10 4.00-5.40 Red Blood Count ATHE NA ([facility]) hemoglobin 9.9 g/dL 12.0-15.5 Below low normal Hemoglobin AALIYAH ( [facility]) mean corpuscular hemoglobin 23.7 pg 27.0-33.0 Below low nor mal Mean Corpuscular Hemoglobin AALIYAH ([facility]) mean corpuscular volume 81.1 fL 80.0-96.0 Mean Corpusc ular Volume AALIYAH ([facility]) hematocrit 33.8 % 36.0-47.0 Below low normal Hematocrit AALIYAH ( [facility]) mean corpuscular HGB conc 29.3 g/dL 32.0-36.5 Below low josseline l Mean Corpuscular HGB Conc AALIYAH ([facility]) red cell distribution width 15.9 % 11.5-14.5 Above high no rmal Red Cell Distribution Width AALIYAH ([facility]) platelet count, automated 359 10 150-450 Platelet C ount, Automated AALIYAH ([facility]) nucleated red blood cell % 0.0 % 0-0 Nucleated Red Blood Cell % AALIYAH ([facility]) ID Date Data Source [id number] 08/30/2020 05:37:00 AM EST AALIYAH ([facility]) Name Value Range Interpretation Code Description Data Radha rce(s) Supporting Document(s) magnesium level 2.0 mg/dL 1.8-2.4 Magnesium Level ATHE ([facility]) ID Date Data Source [id number] 08/30/2020 05:37:00 AM EST MCRAE ([facility]) Name Value Range Interpretation Code Description Data Radha rce(s) Supporting Document(s) glucose, fasting 91 mg/dL 70-100 Glucose, Fasting AT [facility]) blood urea nitrogen 5 mg/dL 7-18 Below low normal Blood Urea Nitrogen AALIYAH ([facility]) creatinine for GFR 0.60 mg/dL 0.55-1.30 Creatinine for GF R AALIYAH ([facility]) glomerular filtration rate > 60.0 >60 Glomerula r Filtration Rate AALIYAH ([facility]) sodium level 140 mEq/L 136-145 Sodium Level AALIYAH ([facility]) potassium serum 3.6 mEq/L 3.5-5.1 Potassium Serum ATHE NA ([facility]) chloride level 107 mEq/L 98-107 Chloride Level AALIYAH ([facility]) carbon dioxide level 25 mEq/L 21-32 Carbon Dioxide Level AALIYAH ([facility]) anion gap 8 mEq/L 8-16 Anion Gap AALIYAH ([facility]) calcium level 8.5 mg/dL 8.5-10.1 Calcium Level AALIYAH ( [facility]) AST/SGOT 17 U/L 7-37 AST/SGOT AALIYAH ([facility]) ALT/SGPT 22 U/L 12-78 ALT/SGPT AALIYAH ([facility]) alkaline phosphatase 70 U/L 45-117 Alkaline Phosph atase AALIYAH ([facility]) total protein 6.8 gm/dL 6.4-8.2 Total Protein AALIYAH ( [facility]) bilirubin,total 0.6 mg/dL 0.2-1.0 Bilirubin,total ATHE NA ([facility]) albumin 3.5 gm/dL 3.2-5.2 Albumin AALIYAH ([facility]) albumin/globulin ratio 1.2-2.2 Below low normal Albumin /globulin Ratio AALIYAH ([facility]) ID Date Data Source [id number] 08/30/2020 05:37:00 AM EST AALIYAH ([facility]) Name Value Range Interpretation Code Description Data Radha rce(s) Supporting Document(s) white blood count 5.0 10 4.0-10.0 White Blood Count AALIYAH ([facility]) red blood count 4.17 10 4.00-5.40 Red Blood Count ATHE NA ([facility]) hemoglobin 9.9 g/dL 12.0-15.5 Below low normal Hemoglobin AALIYAH ( [facility]) hematocrit 33.8 % 36.0-47.0 Below low normal Hematocrit AALIYAH ( [facility]) mean corpuscular volume 81.1 fL 80.0-96.0 Mean Corpusc ular Volume AALIYAH ([facility]) mean corpuscular hemoglobin 23.7 pg 27.0-33.0 Below low nor mal Mean Corpuscular Hemoglobin AALIYAH ([facility]) red cell distribution width 15.9 % 11.5-14.5 Above high no rmal Red Cell Distribution Width AALIYAH ([facility]) mean corpuscular HGB conc 29.3 g/dL 32.0-36.5 Below low josseline l Mean Corpuscular HGB Conc AALIYAH ([facility]) nucleated red blood cell % 0.0 % 0-0 Nucleated Red Blood Cell % AALIYAH ([facility]) platelet count, automated 359 10 150-450 Platelet C ount, Automated AALIYAH ([facility]) ID Date Data Source [id number] 08/30/2020 05:37:00 AM EST AALIYAH ([facility]) Name Value Range Interpretation Code Description Data Radha rce(s) Supporting Document(s) magnesium level 2.0 mg/dL 1.8-2.4 Magnesium Level ATHE ([facility]) ID Date Data Source [id number] 08/30/2020 05:37:00 AM EST AALIYAH ([facility]) Name Value Range Interpretation Code Description Data Radha rce(s) Supporting Document(s) blood urea nitrogen 5 mg/dL 7-18 Below low normal Blood Urea Nitrogen AALIYAH ([facility]) glucose, fasting 91 mg/dL 70-100 Glucose, Fasting AT [facility] ([facility]) creatinine for GFR 0.60 mg/dL 0.55-1.30 Creatinine for GF R AALIYAH ([facility]) glomerular filtration rate > 60.0 >60 Glomerula r Filtration Rate AALIYAH ([facility]) sodium level 140 mEq/L 136-145 Sodium Level AALIYAH ([facility]) potassium serum 3.6 mEq/L 3.5-5.1 Potassium Serum ATHE ([facility]) chloride level 107 mEq/L 98-107 Chloride Level AALIYAH ([facility]) carbon dioxide level 25 mEq/L 21-32 Carbon Dioxide Level AALIYAH ([facility]) anion gap 8 mEq/L 8-16 Anion Gap AALIYAH ([facility]) calcium level 8.5 mg/dL 8.5-10.1 Calcium Level AALIYAH ( [facility]) AST/SGOT 17 U/L 7-37 AST/SGOT AALIYAH ([facility]) ALT/SGPT 22 U/L 12-78 ALT/SGPT AALIYAH ([facility]) alkaline phosphatase 70 U/L 45-117 Alkaline Phosph atase AALIYAH ([facility]) bilirubin,total 0.6 mg/dL 0.2-1.0 Bilirubin,total ATHE NA ([facility]) total protein 6.8 gm/dL 6.4-8.2 Total Protein AALIYAH ( [facility]) albumin 3.5 gm/dL 3.2-5.2 Albumin AALIYAH ([facility]) albumin/globulin ratio 1.2-2.2 Below low normal Albumin /globulin Ratio AALIYAH ([facility]) ID Date Data Source [id number] 08/30/2020 05:37:00 AM EST MCRAE ([facility]) Name Value Range Interpretation Code Description Data Radha rce(s) Supporting Document(s) white blood count 5.0 10 4.0-10.0 White Blood Count AALIYAH ([facility]) red blood count 4.17 10 4.00-5.40 Red Blood Count ATHE ([facility]) hematocrit 33.8 % 36.0-47.0 Below low normal Hematocrit AALIYAH ( [facility]) hemoglobin 9.9 g/dL 12.0-15.5 Below low normal Hemoglobin AALIYAH ( [facility]) mean corpuscular volume 81.1 fL 80.0-96.0 Mean Corpusc ular Volume AALIYAH ([facility]) mean corpuscular hemoglobin 23.7 pg 27.0-33.0 Below low nor mal Mean Corpuscular Hemoglobin AALIYAH ([facility]) mean corpuscular HGB conc 29.3 g/dL 32.0-36.5 Below low josseline l Mean Corpuscular HGB Conc AALIYAH ([facility]) red cell distribution width 15.9 % 11.5-14.5 Above high no rmal Red Cell Distribution Width AALIYAH ([facility]) platelet count, automated 359 10 150-450 Platelet C ount, Automated AALIYAH ([facility]) nucleated red blood cell % 0.0 % 0-0 Nucleated Red Blood Cell % AALIYAH ([facility]) ID Date Data Source [id number] 08/30/2020 05:37:00 AM EST MCRAE ([facility]) Name Value Range Interpretation Code Description Data Radha rce(s) Supporting Document(s) magnesium level 2.0 mg/dL 1.8-2.4 Magnesium Level ATHE NA ([facility]) ID Date Data Source [id number] 08/30/2020 05:37:00 AM EST AALIYAH ([facility]) Name Value Range Interpretation Code Description Data Radha rce(s) Supporting Document(s) glucose, fasting 91 mg/dL 70-100 Glucose, Fasting AT [facility] ([facility]) creatinine for GFR 0.60 mg/dL 0.55-1.30 Creatinine for GF R AALIYAH ([facility]) blood urea nitrogen 5 mg/dL 7-18 Below low normal Blood Urea Nitrogen AALIYAH ([facility]) glomerular filtration rate > 60.0 >60 Glomerula r Filtration Rate AALIYAH ([facility]) sodium level 140 mEq/L 136-145 Sodium Level AALIYAH ([facility]) potassium serum 3.6 mEq/L 3.5-5.1 Potassium Serum ATHE NA ([facility]) chloride level 107 mEq/L 98-107 Chloride Level AALIYAH ([facility]) carbon dioxide level 25 mEq/L 21-32 Carbon Dioxide Level AALIYAH ([facility]) anion gap 8 mEq/L 8-16 Anion Gap AALIYAH ([facility]) calcium level 8.5 mg/dL 8.5-10.1 Calcium Level AALIYAH ( [facility]) AST/SGOT 17 U/L 7-37 AST/SGOT AALIYAH ([facility]) ALT/SGPT 22 U/L 12-78 ALT/SGPT AALIYAH ([facility]) alkaline phosphatase 70 U/L 45-117 Alkaline Phosph atase AALIYAH ([facility]) total protein 6.8 gm/dL 6.4-8.2 Total Protein AALIYAH ( [facility]) bilirubin,total 0.6 mg/dL 0.2-1.0 Bilirubin,total ATHE ([facility]) albumin 3.5 gm/dL 3.2-5.2 Albumin AALIYAH ([facility]) albumin/globulin ratio 1.2-2.2 Below low normal Albumin /globulin Ratio AALIYAH ([facility]) ID Date Data Source [id number] 08/30/2020 05:37:00 AM EST AALIYAH ([facility]) Name Value Range Interpretation Code Description Data Radha rce(s) Supporting Document(s) white blood count 5.0 10 4.0-10.0 White Blood Count AALIYAH ([facility]) red blood count 4.17 10 4.00-5.40 Red Blood Count ATHE ([facility]) hemoglobin 9.9 g/dL 12.0-15.5 Below low normal Hemoglobin AALIYAH ( [facility]) hematocrit 33.8 % 36.0-47.0 Below low normal Hematocrit AALIYAH ( [facility]) mean corpuscular volume 81.1 fL 80.0-96.0 Mean Corpusc ular Volume AALIYAH ([facility]) mean corpuscular hemoglobin 23.7 pg 27.0-33.0 Below low nor mal Mean Corpuscular Hemoglobin AALIYAH ([facility]) mean corpuscular HGB conc 29.3 g/dL 32.0-36.5 Below low josseline l Mean Corpuscular HGB Conc AALIYAH ([facility]) red cell distribution width 15.9 % 11.5-14.5 Above high no rmal Red Cell Distribution Width AALIYAH ([facility]) platelet count, automated 359 10 150-450 Platelet C ount, Automated AALIYAH ([facility]) nucleated red blood cell % 0.0 % 0-0 Nucleated Red Blood Cell % AALIYAH ([facility]) ID Date Data Source [id number] 08/29/2020 03:58:00 PM EST AALIYAH ([facility]) Name Value Range Interpretation Code Description Data Radha rce(s) Supporting Document(s) IgG subclass 2 250 mg/dL 130-555 IgG Subclass 2 AALIYAH ([facility]) IgG subclass 1 752 mg/dL 248-810 IgG Subclass 1 AALIYAH ([facility]) IgG subclass 3 81 mg/dL 15-102 IgG Subclass 3 AALIYAH ([facility]) IgG serum (part of subclasses) 1107 mg/dL 586-1602 IgG Serum (Part of Subclasses) AALIYAH ([facility]) IgG subclass 4 28 mg/dL 2-96 IgG Subclass 4 AALIYAH ([facility]) ID Date Data Source [id number] 08/29/2020 03:58:00 PM EST AALIYAH ([facility]) Name Value Range Interpretation Code Description Data Radha rce(s) Supporting Document(s) antinuclear antibodies direct negative negative Antinu clear Antibodies Direct [facility]) ID Date Data Source [id number] 08/29/2020 03:58:00 PM EST AALIYAH ([facility]) Name Value Range Interpretation Code Description Data Radha rce(s) Supporting Document(s) IgG subclass 1 752 mg/dL 248-810 IgG Subclass 1 AALIYAH ([facility]) IgG subclass 2 250 mg/dL 130-555 IgG Subclass 2 AALIYAH ([facility]) IgG subclass 3 81 mg/dL 15-102 IgG Subclass 3 AALIYAH ([facility]) IgG subclass 4 28 mg/dL 2-96 IgG Subclass 4 AALIYAH ([facility]) IgG serum (part of subclasses) 1107 mg/dL 586-1602 IgG Serum (Part of Subclasses) AALIYAH ([facility]) ID Date Data Source [id number] 08/29/2020 03:58:00 PM EST AALIYAH ([facility]) Name Value Range Interpretation Code Description Data Radha rce(s) Supporting Document(s) antinuclear antibodies direct negative negative Antinu clear Antibodies Direct [facility] ([facility]) ID Date Data Source [id number] 08/29/2020 03:58:00 PM EST AALIYAH ([facility]) Name Value Range Interpretation Code Description Data Radha rce(s) Supporting Document(s) IgG subclass 1 752 mg/dL 248-810 IgG Subclass 1 AALIYAH ([facility]) IgG subclass 2 250 mg/dL 130-555 IgG Subclass 2 AALIYAH ([facility]) IgG subclass 3 81 mg/dL 15-102 IgG Subclass 3 AALIYAH ([facility]) IgG subclass 4 28 mg/dL 2-96 IgG Subclass 4 AALIYAH ([facility]) IgG serum (part of subclasses) 1107 mg/dL 586-1602 IgG Serum (Part of Subclasses) AALIYAH ([facility]) ID Date Data Source [id number] 08/29/2020 03:58:00 PM EST [facility]) Name Value Range Interpretation Code Description Data Radha rce(s) Supporting Document(s) IgG subclass 2 250 mg/dL 130-555 IgG Subclass 2 AALIYAH ([facility]) IgG subclass 1 752 mg/dL 248-810 IgG Subclass 1 AALIYAH ([facility]) IgG subclass 4 28 mg/dL 2-96 IgG Subclass 4 AALIYAH ([facility]) IgG subclass 3 81 mg/dL 15-102 IgG Subclass 3 AALIYAH ([facility]) IgG serum (part of subclasses) 1107 mg/dL 586-1602 IgG Serum (Part of Subclasses) [facility] ([facility]) ID Date Data Source [id number] 08/29/2020 03:58:00 PM EST AALIYAH ([facility]) Name Value Range Interpretation Code Description Data Radha rce(s) Supporting Document(s) antinuclear antibodies direct negative negative Antinu clear Antibodies Direct [facility]) ID Date Data Source [id number] 08/29/2020 03:58:00 PM EST [facility]) Name Value Range Interpretation Code Description Data Radha rce(s) Supporting Document(s) antinuclear antibodies direct negative negative Antinu clear Antibodies Direct [facility]) ID Date Data Source [id number] 08/29/2020 03:58:00 PM EST AALIYAH ([facility]) Name Value Range Interpretation Code Description Data Radha rce(s) Supporting Document(s) IgG subclass 1 752 mg/dL 248-810 IgG Subclass 1 AALIYAH ([facility]) IgG subclass 2 250 mg/dL 130-555 IgG Subclass 2 AALIYAH ([facility]) IgG subclass 3 81 mg/dL 15-102 IgG Subclass 3 AALIYAH ([facility]) IgG subclass 4 28 mg/dL 2-96 IgG Subclass 4 AALIYAH ([facility]) IgG serum (part of subclasses) 1107 mg/dL 586-1602 IgG Serum (Part of Subclasses) [facility] ([facility]) ID Date Data Source [id number] 08/29/2020 03:58:00 PM EST AALIYAH ([facility]) Name Value Range Interpretation Code Description Data Radha rce(s) Supporting Document(s) antinuclear antibodies direct negative negative Antinu clear Antibodies Direct [facility]) ID Date Data Source [id number] 08/29/2020 02:34:00 PM EST AALIYAH ([facility]) Name Value Range Interpretation Code Description Data Radha rce(s) Supporting Document(s) ID Date Data Source [id number] 08/29/2020 02:34:00 PM EST AALIYAH ([facility]) Name Value Range Interpretation Code Description Data Radha rce(s) Supporting Document(s) ID Date Data Source [id number] 08/29/2020 [facility]34[facility]00 [facility] Name Value Range Interpretation Code Description Data Radha rce(s) Supporting Document(s) ID Date Data Source [id number] 08/29/2020 02:34:00 PM EST AALIYAH ([facility]) Name Value Range Interpretation Code Description Data Radha rce(s) Supporting Document(s) ID Date Data Source [id number] 08/29/2020 02:34:00 PM EST [facility] Name Value Range Interpretation Code Description Data Radha rce(s) Supporting Document(s) SARS-CoV-2 (COVID 19) NEGATIVE - SARS-CoV-2 (COVID19) [facility] This lab was ordered by [facility] a nd reported by [facility]. ID Date Data Source [id number] 08/29/2020 02:34:00 PM EST AALIYAH ([facility]) Name Value Range Interpretation Code Description Data Radha rce(s) Supporting Document(s) ID Date Data Source [id number] 08/27/2020 11:54:00 AM EST AALIYAH ([facility]) Name Value Range Interpretation Code Description Data Radha rce(s) Supporting Document(s) ID Date Data Source [id number] 08/27/2020 11:54:00 AM EST AALIYAH ([facility]) Name Value Range Interpretation Code Description Data Radha rce(s) Supporting Document(s) ID Date Data Source [id number] 08/27/2020 11:54:00 AM EST AALIYAH ([facility]) Name Value Range Interpretation Code Description Data Radha rce(s) Supporting Document(s) ID Date Data Source [id number] 08/27/2020 11:54:00 AM EST AALIYAH ([facility]) Name Value Range Interpretation Code Description Data Radha rce(s) Supporting Document(s) ID Date Data Source [id number] 08/27/2020 11:54:00 AM EST AALIYAH ([facility]) Name Value Range Interpretation Code Description Data Radha rce(s) Supporting Document(s) ID Date Data Source [id number] 08/27/2020 10:54:00 AM EST AALIYAH ([facility]) Name Value Range Interpretation Code Description Data Radha rce(s) Supporting Document(s) carcinoembryonic antigen < 0.5 <2.5 Carcinoembr yonic Antigen AALIYAH ([facility]) ID Date Data Source [id number] 08/27/2020 10:54:00 AM EST AALIYAH ([facility]) Name Value Range Interpretation Code Description Data Radha rce(s) Supporting Document(s) lipase 59 U/L 73-393 Below low normal Lipase AALIYAH ( [facility]) ID Date Data Source [id number] 08/27/2020 10:54:00 AM EST AALIYAH ([facility]) Name Value Range Interpretation Code Description Data Radha rce(s) Supporting Document(s) amylase 52 U/L 25-115 Amylase AALIYAH ([facility]) ID Date Data Source [id number] 08/27/2020 10:54:00 AM EST AALIYAH ([facility]) Name Value Range Interpretation Code Description Data Radha rce(s) Supporting Document(s) Ca19-9 tumor marker,carbohydra 10.8 U/mL <35.0 Ca19- 9 Tumor Marker,carbohydra AALIYAH ([facility]) ID Date Data Source [id number] 08/27/2020 10:54:00 AM EST AALIYAH ([facility]) Name Value Range Interpretation Code Description Data Radha rce(s) Supporting Document(s) glucose, fasting 70 mg/dL 70-100 Glucose, Fasting AT [facility] ([facility]) blood urea nitrogen 6 mg/dL 7-18 Below low normal Blood Urea Nitrogen AALIYAH ([facility]) glomerular filtration rate > 60.0 >60 Glomerula r Filtration Rate AALIYAH ([facility]) creatinine for GFR 0.63 mg/dL 0.55-1.30 Creatinine for GF R AALIYAH ([facility]) potassium serum 4.5 mEq/L 3.5-5.1 Potassium Serum ATHE NA ([facility]) sodium level 140 mEq/L 136-145 Sodium Level AALIYAH ([facility]) chloride level 106 mEq/L 98-107 Chloride Level AALIYAH ([facility]) carbon dioxide level 28 mEq/L 21-32 Carbon Dioxide Level AALIYAH ([facility]) anion gap 6 mEq/L 8-16 Below low normal Anion Gap AALIYAH ( [facility]) ALT/SGPT 21 U/L 12-78 ALT/SGPT AALIYAH ([facility]) calcium level 9.5 mg/dL 8.5-10.1 Calcium Level AALIYAH ( [facility]) AST/SGOT 14 U/L 7-37 AST/SGOT AALIYAH ([facility]) bilirubin,total 0.4 mg/dL 0.2-1.0 Bilirubin,total ATHE NA ([facility]) alkaline phosphatase 82 U/L 45-117 Alkaline Phosph atase AALIYAH ([facility]) total protein 7.9 gm/dL 6.4-8.2 Total Protein AALIYAH ( [facility]) albumin/globulin ratio 1.2-2.2 Below low normal Albumin /globulin Ratio AALIYAH ([facility]) albumin 4.1 gm/dL 3.2-5.2 Albumin AALIYAH ([facility]) ID Date Data Source [id number] 08/27/2020 10:54:00 AM EST AALIYAH ([facility]) Name Value Range Interpretation Code Description Data Radha rce(s) Supporting Document(s) ID Date Data Source [id number] 08/27/2020 10:54:00 AM EST AALIYAH ([facility]) Name Value Range Interpretation Code Description Data Radha rce(s) Supporting Document(s) ID Date Data Source [id number] 08/27/2020 10:54:00 AM EST AALIYAH ([facility]) Name Value Range Interpretation Code Description Data Radha rce(s) Supporting Document(s) ID Date Data Source [id number] 08/27/2020 10:54:00 AM EST AALIYAH ([facility]) Name Value Range Interpretation Code Description Data Radha rce(s) Supporting Document(s) ID Date Data Source [id number] 08/27/2020 10:54:00 AM EST AALIYAH ([facility]) Name Value Range Interpretation Code Description Data Radha rce(s) Supporting Document(s) carcinoembryonic antigen < 0.5 <2.5 Carcinoembr yonic Antigen AALIAYH ([facility]) ID Date Data Source [id number] 08/27/2020 10:54:00 AM EST AALIYAH ([facility]) Name Value Range Interpretation Code Description Data Radha rce(s) Supporting Document(s) lipase 59 U/L 73-393 Below low normal Lipase AALIYAH ( [facility]) ID Date Data Source [id number] 08/27/2020 10:54:00 AM EST AALIYAH ([facility]) Name Value Range Interpretation Code Description Data Radha rce(s) Supporting Document(s) amylase 52 U/L 25-115 Amylase AALIYAH ([facility]) ID Date Data Source [id number] 08/27/2020 10:54:00 AM EST AALIYAH ([facility]) Name Value Range Interpretation Code Description Data Radha rce(s) Supporting Document(s) Ca19-9 tumor marker,carbohydra 10.8 U/mL <35.0 Ca19- 9 Tumor Marker,carbohydra AALIYAH ([facility]) ID Date Data Source [id number] 08/27/2020 10:54:00 AM EST AALIYAH ([facility]) Name Value Range Interpretation Code Description Data Radha rce(s) Supporting Document(s) glucose, fasting 70 mg/dL 70-100 Glucose, Fasting AT [facility] ([facility]) blood urea nitrogen 6 mg/dL 7-18 Below low normal Blood Urea Nitrogen AALIYAH ([facility]) glomerular filtration rate > 60.0 >60 Glomerula r Filtration Rate AALIYAH ([facility]) creatinine for GFR 0.63 mg/dL 0.55-1.30 Creatinine for GF R AALIYAH ([facility]) sodium level 140 mEq/L 136-145 Sodium Level AALIYAH ([facility]) potassium serum 4.5 mEq/L 3.5-5.1 Potassium Serum ATHE NA ([facility]) chloride level 106 mEq/L 98-107 Chloride Level AALIYAH ([facility]) carbon dioxide level 28 mEq/L 21-32 Carbon Dioxide Level [facility] ([facility]) anion gap 6 mEq/L 8-16 Below low normal Anion Gap [facility] ( [facility]) calcium level 9.5 mg/dL 8.5-10.1 Calcium Level AALIYAH ( [facility]) AST/SGOT 14 U/L 7-37 AST/SGOT AALIYAH ([facility]) alkaline phosphatase 82 U/L 45-117 Alkaline Phosph atase AALIYAH ([facility]) ALT/SGPT 21 U/L 12-78 ALT/SGPT AALIYAH ([facility]) bilirubin,total 0.4 mg/dL 0.2-1.0 Bilirubin,total ATHE ([facility]) total protein 7.9 gm/dL 6.4-8.2 Total Protein AALIYAH ( [facility]) albumin 4.1 gm/dL 3.2-5.2 Albumin AALIYAH ([facility]) albumin/globulin ratio 1.2-2.2 Below low normal Albumin /globulin Ratio AALIYAH ([facility]) ID Date Data Source [id number] 08/27/2020 10:54:00 AM EST AALIYAH ([facility]) Name Value Range Interpretation Code Description Data Radha rce(s) Supporting Document(s) ID Date Data Source [id number] 08/27/2020 10:54:00 AM EST AALIYAH ([facility]) Name Value Range Interpretation Code Description Data Radha rce(s) Supporting Document(s) ID Date Data Source [id number] 08/27/2020 10:54:00 AM EST AALIYAH ([facility]) Name Value Range Interpretation Code Description Data Radha rce(s) Supporting Document(s) ID Date Data Source [id number] 08/27/2020 10:54:00 AM EST AALIYAH ([facility]) Name Value Range Interpretation Code Description Data Radha rce(s) Supporting Document(s) ID Date Data Source [id number] 08/27/2020 10:54:00 AM EST AALIYAH ([facility]) Name Value Range Interpretation Code Description Data Radha rce(s) Supporting Document(s) carcinoembryonic antigen < 0.5 <2.5 Carcinoembr yonic Antigen AALIYAH ([facility]) ID Date Data Source [id number] 08/27/2020 10:54:00 AM EST AALIYAH ([facility]) Name Value Range Interpretation Code Description Data Radha rce(s) Supporting Document(s) lipase 59 U/L 73-393 Below low normal Lipase AALIYAH ( [facility]) ID Date Data Source [id number] 08/27/2020 10:54:00 AM EST AALIYAH ([facility]) Name Value Range Interpretation Code Description Data Radha rce(s) Supporting Document(s) amylase 52 U/L 25-115 Amylase AALIYAH ([facility]) ID Date Data Source [id number] 08/27/2020 10:54:00 AM EST AALIYAH ([facility]) Name Value Range Interpretation Code Description Data Radha rce(s) Supporting Document(s) Ca19-9 tumor marker,carbohydra 10.8 U/mL <35.0 Ca19- 9 Tumor Marker,carbohydra AALIYAH ([facility]) ID Date Data Source [id number] 08/27/2020 10:54:00 AM EST AALIYAH ([facility]) Name Value Range Interpretation Code Description Data Radha rce(s) Supporting Document(s) blood urea nitrogen 6 mg/dL 7-18 Below low normal Blood Urea Nitrogen AALIYAH ([facility]) glucose, fasting 70 mg/dL 70-100 Glucose, Fasting AT [facility]) creatinine for GFR 0.63 mg/dL 0.55-1.30 Creatinine for GF R AALIYAH ([facility]) glomerular filtration rate > 60.0 >60 Glomerula r Filtration Rate AALIYAH ([facility]) chloride level 106 mEq/L 98-107 Chloride Level AALIYAH ([facility]) sodium level 140 mEq/L 136-145 Sodium Level AALIYAH ([facility]) potassium serum 4.5 mEq/L 3.5-5.1 Potassium Serum ATHE NA ([facility]) carbon dioxide level 28 mEq/L 21-32 Carbon Dioxide Level AALIYAH ([facility]) anion gap 6 mEq/L 8-16 Below low normal Anion Gap AALIYAH ( [facility]) AST/SGOT 14 U/L 7-37 AST/SGOT AALIYAH ([facility]) calcium level 9.5 mg/dL 8.5-10.1 Calcium Level AALIYAH ( [facility]) alkaline phosphatase 82 U/L 45-117 Alkaline Phosph atase AALIYAH ([facility]) ALT/SGPT 21 U/L 12-78 ALT/SGPT AALIYAH ([facility]) bilirubin,total 0.4 mg/dL 0.2-1.0 Bilirubin,total ATHE NA ([facility]) total protein 7.9 gm/dL 6.4-8.2 Total Protein AALIYAH ( [facility]) albumin/globulin ratio 1.2-2.2 Below low normal Albumin /globulin Ratio AALIYAH ([facility]) albumin 4.1 gm/dL 3.2-5.2 Albumin AALIYAH ([facility]) ID Date Data Source [id number] 08/27/2020 10:54:00 AM EST AALIYAH ([facility]) Name Value Range Interpretation Code Description Data Radha rce(s) Supporting Document(s) ID Date Data Source [id number] 08/27/2020 10:54:00 AM EST AALIYAH ([facility]) Name Value Range Interpretation Code Description Data Radha rce(s) Supporting Document(s) ID Date Data Source [id number] 08/27/2020 10:54:00 AM EST AALIYAH ([facility]) Name Value Range Interpretation Code Description Data Radha rce(s) Supporting Document(s) ID Date Data Source [id number] 08/27/2020 10:54:00 AM EST AALIYAH ([facility]) Name Value Range Interpretation Code Description Data Radha rce(s) Supporting Document(s) ID Date Data Source [id number] 08/27/2020 10:54:00 AM EST AALIYAH ([facility]) Name Value Range Interpretation Code Description Data Radha rce(s) Supporting Document(s) carcinoembryonic antigen < 0.5 <2.5 Carcinoembr yonic Antigen AALIYAH ([facility]) ID Date Data Source [id number] 08/27/2020 10:54:00 AM EST AALIYAH ([facility]) Name Value Range Interpretation Code Description Data Radha rce(s) Supporting Document(s) lipase 59 U/L 73-393 Below low normal Lipase AALIYAH ( [facility]) ID Date Data Source [id number] 08/27/2020 10:54:00 AM EST AALIYAH ([facility]) Name Value Range Interpretation Code Description Data Radha rce(s) Supporting Document(s) amylase 52 U/L 25-115 Amylase AALIYAH ([facility]) ID Date Data Source [id number] 08/27/2020 10:54:00 AM EST AALIYAH ([facility]) Name Value Range Interpretation Code Description Data Radha rce(s) Supporting Document(s) Ca19-9 tumor marker,carbohydra 10.8 U/mL <35.0 Ca19- 9 Tumor Marker,carbohydra AALIYAH ([facility]) ID Date Data Source [id number] 08/27/2020 10:54:00 AM EST [facility]) Name Value Range Interpretation Code Description Data Radha rce(s) Supporting Document(s) blood urea nitrogen 6 mg/dL 7-18 Below low normal Blood Urea Nitrogen AALIYAH ([facility]) glucose, fasting 70 mg/dL 70-100 Glucose, Fasting AT [facility] ([facility]) creatinine for GFR 0.63 mg/dL 0.55-1.30 Creatinine for GF R AALIYAH ([facility]) glomerular filtration rate > 60.0 >60 Glomerula r Filtration Rate AALIYAH ([facility]) potassium serum 4.5 mEq/L 3.5-5.1 Potassium Serum ATHE NA ([facility]) sodium level 140 mEq/L 136-145 Sodium Level AALIYAH ([facility]) anion gap 6 mEq/L 8-16 Below low normal Anion Gap AALIYAH ( [facility]) carbon dioxide level 28 mEq/L 21-32 Carbon Dioxide Level AALIYAH ([facility]) chloride level 106 mEq/L 98-107 Chloride Level AALIYAH ([facility]) calcium level 9.5 mg/dL 8.5-10.1 Calcium Level AALIYAH ( [facility]) ALT/SGPT 21 U/L 12-78 ALT/SGPT AALIYAH ([facility]) AST/SGOT 14 U/L 7-37 AST/SGOT AALIYAH ([facility]) alkaline phosphatase 82 U/L 45-117 Alkaline Phosph atase AALIYAH ([facility]) bilirubin,total 0.4 mg/dL 0.2-1.0 Bilirubin,total ATHE NA ([facility]) total protein 7.9 gm/dL 6.4-8.2 Total Protein AALIYAH ( [facility]) albumin 4.1 gm/dL 3.2-5.2 Albumin AALIYAH ([facility]) albumin/globulin ratio 1.2-2.2 Below low normal Albumin /globulin Ratio AALIYAH ([facility]) ID Date Data Source [id number] 08/27/2020 10:54:00 AM EST AALIYAH ([facility]) Name Value Range Interpretation Code Description Data Radha rce(s) Supporting Document(s) ID Date Data Source [id number] 08/27/2020 10:54:00 AM EST AALIYAH ([facility]) Name Value Range Interpretation Code Description Data Radha rce(s) Supporting Document(s) ID Date Data Source [id number] 08/27/2020 10:54:00 AM EST AALIYAH ([facility]) Name Value Range Interpretation Code Description Data Radha rce(s) Supporting Document(s) ID Date Data Source [id number] 08/27/2020 10:54:00 AM EST AALIYAH ([facility]) Name Value Range Interpretation Code Description Data Radha rce(s) Supporting Document(s) ID Date Data Source [id number] 08/27/2020 10:54:00 AM EST AALIYAH ([facility]) Name Value Range Interpretation Code Description Data Radha rce(s) Supporting Document(s) carcinoembryonic antigen < 0.5 <2.5 Carcinoembr yonic Antigen AALIYAH ([facility]) ID Date Data Source [id number] 08/27/2020 10:54:00 AM EST AALIYAH ([facility]) Name Value Range Interpretation Code Description Data Radha rce(s) Supporting Document(s) lipase 59 U/L 73-393 Below low normal Lipase AALIYAH ( [facility]) ID Date Data Source [id number] 08/27/2020 10:54:00 AM EST AALIYAH ([facility]) Name Value Range Interpretation Code Description Data Radha rce(s) Supporting Document(s) amylase 52 U/L 25-115 Amylase AALIYAH ([facility]) ID Date Data Source [id number] 08/27/2020 10:54:00 AM EST AALIYAH ([facility]) Name Value Range Interpretation Code Description Data Radha rce(s) Supporting Document(s) Ca19-9 tumor marker,carbohydra 10.8 U/mL <35.0 Ca19- 9 Tumor Marker,carbohydra AALIYAH ([facility]) ID Date Data Source [id number] 08/27/2020 10:54:00 AM EST AALIYAH ([facility]) Name Value Range Interpretation Code Description Data Radha rce(s) Supporting Document(s) glucose, fasting 70 mg/dL 70-100 Glucose, Fasting AT [facility] ([facility]) blood urea nitrogen 6 mg/dL 7-18 Below low normal Blood Urea Nitrogen AALIYAH ([facility]) creatinine for GFR 0.63 mg/dL 0.55-1.30 Creatinine for GF R AALIYAH ([facility]) glomerular filtration rate > 60.0 >60 Glomerula r Filtration Rate AALIYAH ([facility]) sodium level 140 mEq/L 136-145 Sodium Level AALIYAH ([facility]) potassium serum 4.5 mEq/L 3.5-5.1 Potassium Serum ATHE NA ([facility]) chloride level 106 mEq/L 98-107 Chloride Level AALIYAH ([facility]) carbon dioxide level 28 mEq/L 21-32 Carbon Dioxide Level AALIYAH ([facility]) anion gap 6 mEq/L 8-16 Below low normal Anion Gap AALIYAH ( [facility]) calcium level 9.5 mg/dL 8.5-10.1 Calcium Level AALIYAH ( [facility]) AST/SGOT 14 U/L 7-37 AST/SGOT AALIYAH ([facility]) ALT/SGPT 21 U/L 12-78 ALT/SGPT AALIYAH ([facility]) bilirubin,total 0.4 mg/dL 0.2-1.0 Bilirubin,total ATHE ([facility]) alkaline phosphatase 82 U/L 45-117 Alkaline Phosph atase AALIYAH ([facility]) total protein 7.9 gm/dL 6.4-8.2 Total Protein AALIYAH ( [facility]) albumin 4.1 gm/dL 3.2-5.2 Albumin AALIYAH ([facility]) albumin/globulin ratio 1.2-2.2 Below low normal Albumin /globulin Ratio AALIYAH ([facility]) ID Date Data Source [id number] 08/27/2020 10:54:00 AM EST AALIYAH ([facility]) Name Value Range Interpretation Code Description Data Radha rce(s) Supporting Document(s) ID Date Data Source [id number] 08/27/2020 10:54:00 AM EST AALIYAH ([facility]) Name Value Range Interpretation Code Description Data Radha rce(s) Supporting Document(s) ID Date Data Source [id number] 08/27/2020 10:54:00 AM EST AALIYAH ([facility]) Name Value Range Interpretation Code Description Data Radha rce(s) Supporting Document(s) ID Date Data Source [id number] 08/27/2020 10:54:00 AM EST AALIYAH ([facility]) Name Value Range Interpretation Code Description Data Radha rce(s) Supporting Document(s) ID Date Data Source [id number] 08/21/2020 09:59:00 AM EST AALIYAH ([facility]) Name Value Range Interpretation Code Description Data Radha rce(s) Supporting Document(s) lipase 877 U/L 73-393 Above high normal Lipase AALIYAH ([facility]) ID Date Data Source [id number] 08/21/2020 09:59:00 AM EST AALIYAH ([facility]) Name Value Range Interpretation Code Description Data Radha rce(s) Supporting Document(s) blood urea nitrogen 9 mg/dL 7-18 Blood Urea Nitro gen AALIYAH ([facility]) glucose, fasting 91 mg/dL 70-100 Glucose, Fasting AT [facility]) sodium level 139 mEq/L 136-145 Sodium Level AALIYAH ([facility]) potassium serum 3.7 mEq/L 3.5-5.1 Potassium Serum ATHE NA ([facility]) glomerular filtration rate > 60.0 >60 Glomerula r Filtration Rate AALIYAH ([facility]) creatinine for GFR 0.64 mg/dL 0.55-1.30 Creatinine for GF R AALIYAH ([facility]) anion gap 8 mEq/L 8-16 Anion Gap AALIYAH ([facility]) calcium level 8.5 mg/dL 8.5-10.1 Calcium Level AALIYAH ( [facility]) chloride level 108 mEq/L 98-107 Above high normal Chloride Level AALIYAH ([facility]) carbon dioxide level 23 mEq/L 21-32 Carbon Dioxide Level AALIYAH ([facility]) ID Date Data Source [id number] 08/21/2020 09:59:00 AM EST AALIYAH ([facility]) Name Value Range Interpretation Code Description Data Radha rce(s) Supporting Document(s) AST/SGOT 17 U/L 7-37 AST/SGOT AALIYAH ([facility]) ALT/SGPT 25 U/L 12-78 ALT/SGPT AALIYAH ([facility]) bilirubin,total 0.3 mg/dL 0.2-1.0 Bilirubin,total ATHE ([facility]) bilirubin,direct < 0.1 0.0-0.2 Bilirubin,direct AT [facility] ([facility]) total protein 8.0 gm/dL 6.4-8.2 Total Protein AALIYAH ( [facility]) alkaline phosphatase 80 U/L 45-117 Alkaline Phosph atase AALIYAH ([facility]) albumin/globulin ratio 1.2-2.2 Below low normal Albumin /globulin Ratio AALIYAH ([facility]) albumin 4.0 gm/dL 3.2-5.2 Albumin AALIYAH ([facility]) ID Date Data Source [id number] 08/21/2020 09:59:00 AM EST AALIYAH ([facility]) Name Value Range Interpretation Code Description Data Radha rce(s) Supporting Document(s) red blood count 4.48 10 4.00-5.40 Red Blood Count ATHE NA ([facility]) hemoglobin 11.0 g/dL 12.0-15.5 Below low normal Hemoglobin AALIYAH ( [facility]) white blood count 7.9 10 4.0-10.0 White Blood Count AALIYAH ([facility]) mean corpuscular hemoglobin 24.6 pg 27.0-33.0 Below low nor mal Mean Corpuscular Hemoglobin AALIYAH ([facility]) mean corpuscular HGB conc 30.7 g/dL 32.0-36.5 Below low josseline l Mean Corpuscular HGB Conc AALIYAH ([facility]) hematocrit 35.8 % 36.0-47.0 Below low normal Hematocrit AALIYAH ( [facility]) mean corpuscular volume 79.9 fL 80.0-96.0 Below low normal Mean Corpuscular Volume AALIYAH ([facility]) lymph % 22.0 % 24.0-44.0 Below low normal Lymph % AALIYAH ( [facility]) platelet count, automated 436 10 150-450 Platelet C ount, Automated AALIYAH ([facility]) neutrophils % 67.7 % 36.0-66.0 Above high normal Neutrophils % A THENA ([facility]) red cell distribution width 16.2 % 11.5-14.5 Above high no rmal Red Cell Distribution Width AALIYAH ([facility]) immature granulocyte % 0.5 % 0-3.0 Immature Gran ulocyte % AALIYAH ([facility]) baso % 1.3 % 0.0-1.0 Above high normal Baso % AALIYAH ([facility]) mono % 6.7 % 0.0-5.0 Above high normal Routt % AALIYAH ([facility]) eos % 1.8 % 0.0-3.0 Eos % AALIYAH ([facility]) mono # 0.5 10 0.0-0.8 Routt # AALIYAH ([facility]) lymph # 1.7 10 1.5-5.0 Lymph # AALIYAH ([facility]) neutrophils # 5.3 10 1.5-8.5 Neutrophils # AALIYAH ( [facility]) nucleated red blood cell % 0.0 % 0-0 Nucleated Red Blood Cell % AALIYAH ([facility]) baso # 0.1 10 0.0-0.2 Baso # AALIYAH ([facility]) eos # 0.1 10 0.0-0.5 Eos # AALIYAH ([facility]) ID Date Data Source [id number] 08/21/2020 09:59:00 AM EST AALIYAH ([facility]) Name Value Range Interpretation Code Description Data Radha rce(s) Supporting Document(s) lipase 877 U/L 73-393 Above high normal Lipase AALIYAH ([facility]) ID Date Data Source [id number] 08/21/2020 09:59:00 AM EST AALIYAH ([facility]) Name Value Range Interpretation Code Description Data Radha rce(s) Supporting Document(s) glucose, fasting 91 mg/dL 70-100 Glucose, Fasting AT [facility]) blood urea nitrogen 9 mg/dL 7-18 Blood Urea Nitro gen MCRAE ([facility]) creatinine for GFR 0.64 mg/dL 0.55-1.30 Creatinine for GF R MCRAE ([facility]) glomerular filtration rate > 60.0 >60 Glomerula r Filtration Rate AALIYAH ([facility]) sodium level 139 mEq/L 136-145 Sodium Level AALIYAH ([facility]) potassium serum 3.7 mEq/L 3.5-5.1 Potassium Serum ATH NA ([facility]) chloride level 108 mEq/L 98-107 Above high normal Chloride Level MCRAE ([facility]) carbon dioxide level 23 mEq/L 21-32 Carbon Dioxide Level MCRAE ([facility]) calcium level 8.5 mg/dL 8.5-10.1 Calcium Level MCRAE ( [facility]) anion gap 8 mEq/L 8-16 Anion Gap MCRAE ([facility]) ID Date Data Source [id number] 08/21/2020 09:59:00 AM EST AALIYAH ([facility]) Name Value Range Interpretation Code Description Data Radha rce(s) Supporting Document(s) AST/SGOT 17 U/L 7-37 AST/SGOT AALIYAH ([facility]) ALT/SGPT 25 U/L 12-78 ALT/SGPT AALIYAH ([facility]) alkaline phosphatase 80 U/L 45-117 Alkaline Phosph atase AALIYAH ([facility]) bilirubin,direct < 0.1 0.0-0.2 Bilirubin,direct AT [facility] ([facility]) bilirubin,total 0.3 mg/dL 0.2-1.0 Bilirubin,total ATHE ([facility]) total protein 8.0 gm/dL 6.4-8.2 Total Protein AALIYAH ( [facility]) albumin 4.0 gm/dL 3.2-5.2 Albumin AALIYAH ([facility]) albumin/globulin ratio 1.2-2.2 Below low normal Albumin /globulin Ratio AALIYAH ([facility]) ID Date Data Source [id number] 08/21/2020 09:59:00 AM EST MCRAE ([facility]) Name Value Range Interpretation Code Description Data Radha rce(s) Supporting Document(s) white blood count 7.9 10 4.0-10.0 White Blood Count AALIYAH ([facility]) hemoglobin 11.0 g/dL 12.0-15.5 Below low normal Hemoglobin AALIYAH ( [facility]) hematocrit 35.8 % 36.0-47.0 Below low normal Hematocrit AALIYAH ( [facility]) red blood count 4.48 10 4.00-5.40 Red Blood Count ATHE ([facility]) mean corpuscular volume 79.9 fL 80.0-96.0 Below low normal Mean Corpuscular Volume AALIYAH ([facility]) mean corpuscular hemoglobin 24.6 pg 27.0-33.0 Below low nor mal Mean Corpuscular Hemoglobin AALIYAH ([facility]) red cell distribution width 16.2 % 11.5-14.5 Above high no rmal Red Cell Distribution Width AALIYAH ([facility]) mean corpuscular HGB conc 30.7 g/dL 32.0-36.5 Below low josseline l Mean Corpuscular HGB Conc AALIYAH ([facility]) platelet count, automated 436 10 150-450 Platelet C ount, Automated AALIYAH ([facility]) neutrophils % 67.7 % 36.0-66.0 Above high normal Neutrophils % A THENA ([facility]) lymph % 22.0 % 24.0-44.0 Below low normal Lymph % AALIYAH ( [facility]) mono % 6.7 % 0.0-5.0 Above high normal Routt % AALIYAH ([facility]) baso % 1.3 % 0.0-1.0 Above high normal Baso % AALIYAH ([facility]) immature granulocyte % 0.5 % 0-3.0 Immature Gran ulocyte % AALIYAH ([facility]) eos % 1.8 % 0.0-3.0 Eos % AALIYAH ([facility]) neutrophils # 5.3 10 1.5-8.5 Neutrophils # AALIYAH ( [facility]) nucleated red blood cell % 0.0 % 0-0 Nucleated Red Blood Cell % AALIYAH ([facility]) lymph # 1.7 10 1.5-5.0 Lymph # AALIYAH ([facility]) mono # 0.5 10 0.0-0.8 Routt # AALIYAH ([facility]) eos # 0.1 10 0.0-0.5 Eos # AALIYAH ([facility]) baso # 0.1 10 0.0-0.2 Baso # AALIYAH ([facility]) ID Date Data Source [id number] 08/21/2020 09:59:00 AM EST AALIYAH ([facility]) Name Value Range Interpretation Code Description Data Radha rce(s) Supporting Document(s) lipase 877 U/L 73-393 Above high normal Lipase MCRAE ([facility]) ID Date Data Source [id number] 08/21/2020 09:59:00 AM EST AALIYAH ([facility]) Name Value Range Interpretation Code Description Data Radha rce(s) Supporting Document(s) creatinine for GFR 0.64 mg/dL 0.55-1.30 Creatinine for GF R AALIYAH ([facility]) blood urea nitrogen 9 mg/dL 7-18 Blood Urea Nitro gen AALIYAH ([facility]) glucose, fasting 91 mg/dL 70-100 Glucose, Fasting AT [facility] ([facility]) glomerular filtration rate > 60.0 >60 Glomerula r Filtration Rate AALIYAH ([facility]) potassium serum 3.7 mEq/L 3.5-5.1 Potassium Serum ATHE NA ([facility]) sodium level 139 mEq/L 136-145 Sodium Level AALIYAH ([facility]) carbon dioxide level 23 mEq/L 21-32 Carbon Dioxide Level AALIYAH ([facility]) chloride level 108 mEq/L 98-107 Above high normal Chloride Level AALIYAH ([facility]) calcium level 8.5 mg/dL 8.5-10.1 Calcium Level AALIYAH ( [facility]) anion gap 8 mEq/L 8-16 Anion Gap AALIYAH ([facility]) ID Date Data Source [id number] 08/21/2020 09:59:00 AM EST AALIYAH ([facility]) Name Value Range Interpretation Code Description Data Radha rce(s) Supporting Document(s) ALT/SGPT 25 U/L 12-78 ALT/SGPT AALIYAH ([facility]) AST/SGOT 17 U/L 7-37 AST/SGOT AALIYAH ([facility]) alkaline phosphatase 80 U/L 45-117 Alkaline Phosph atase AALIYAH ([facility]) bilirubin,total 0.3 mg/dL 0.2-1.0 Bilirubin,total ATHE NA ([facility]) bilirubin,direct < 0.1 0.0-0.2 Bilirubin,direct AT [facility] ([facility]) albumin 4.0 gm/dL 3.2-5.2 Albumin AALIYAH ([facility]) albumin/globulin ratio 1.2-2.2 Below low normal Albumin /globulin Ratio AALIYAH ([facility]) total protein 8.0 gm/dL 6.4-8.2 Total Protein AALIYAH ( [facility]) ID Date Data Source [id number] 08/21/2020 09:59:00 AM EST AALIYAH ([facility]) Name Value Range Interpretation Code Description Data Radha rce(s) Supporting Document(s) white blood count 7.9 10 4.0-10.0 White Blood Count AALIYAH ([facility]) hemoglobin 11.0 g/dL 12.0-15.5 Below low normal Hemoglobin AALIYAH ( [facility]) red blood count 4.48 10 4.00-5.40 Red Blood Count ATHE NA ([facility]) mean corpuscular volume 79.9 fL 80.0-96.0 Below low normal Mean Corpuscular Volume AALIYAH ([facility]) hematocrit 35.8 % 36.0-47.0 Below low normal Hematocrit AALIYAH ( [facility]) red cell distribution width 16.2 % 11.5-14.5 Above high no rmal Red Cell Distribution Width AALIYAH ([facility]) mean corpuscular hemoglobin 24.6 pg 27.0-33.0 Below low nor mal Mean Corpuscular Hemoglobin AALIYAH ([facility]) mean corpuscular HGB conc 30.7 g/dL 32.0-36.5 Below low josseline l Mean Corpuscular HGB Conc AALIYAH ([facility]) platelet count, automated 436 10 150-450 Platelet C ount, Automated AALIYAH ([facility]) lymph % 22.0 % 24.0-44.0 Below low normal Lymph % AALIYAH ( [facility]) neutrophils % 67.7 % 36.0-66.0 Above high normal Neutrophils % A THENA ([facility]) eos % 1.8 % 0.0-3.0 Eos % AALIYAH ([facility]) mono % 6.7 % 0.0-5.0 Above high normal Routt % AALIYAH ([facility]) baso % 1.3 % 0.0-1.0 Above high normal Baso % AALIYAH ([facility]) immature granulocyte % 0.5 % 0-3.0 Immature Gran ulocyte % AALIYAH ([facility]) nucleated red blood cell % 0.0 % 0-0 Nucleated Red Blood Cell % AALIYAH ([facility]) mono # 0.5 10 0.0-0.8 Routt # AALIYAH ([facility]) neutrophils # 5.3 10 1.5-8.5 Neutrophils # AALIYAH ( [facility]) lymph # 1.7 10 1.5-5.0 Lymph # AALIYAH ([facility]) eos # 0.1 10 0.0-0.5 Eos # AALIYAH ([facility]) baso # 0.1 10 0.0-0.2 Baso # AALIYAH ([facility]) ID Date Data Source [id number] 08/21/2020 09:59:00 AM EST AALIYAH ([facility]) Name Value Range Interpretation Code Description Data Radha rce(s) Supporting Document(s) lipase 877 U/L 73-393 Above high normal Lipase MCRAE ([facility]) ID Date Data Source [id number] 08/21/2020 09:59:00 AM EST MCRAE ([facility]) Name Value Range Interpretation Code Description Data Radha rce(s) Supporting Document(s) creatinine for GFR 0.64 mg/dL 0.55-1.30 Creatinine for GF R MCRAE ([facility]) glomerular filtration rate > 60.0 >60 Glomerula r Filtration Rate MCRAE ([facility]) blood urea nitrogen 9 mg/dL 7-18 Blood Urea Nitro gen AALIYAH ([facility]) glucose, fasting 91 mg/dL 70-100 Glucose, Fasting AT [facility] ([facility]) sodium level 139 mEq/L 136-145 Sodium Level AALIYAH ([facility]) potassium serum 3.7 mEq/L 3.5-5.1 Potassium Serum ATHE NA ([facility]) chloride level 108 mEq/L 98-107 Above high normal Chloride Level MCRAE ([facility]) carbon dioxide level 23 mEq/L 21-32 Carbon Dioxide Level MCRAE ([facility]) anion gap 8 mEq/L 8-16 Anion Gap AALIYAH ([facility]) calcium level 8.5 mg/dL 8.5-10.1 Calcium Level AALIYAH ( [facility]) ID Date Data Source [id number] 08/21/2020 09:59:00 AM EST AALIYAH ([facility]) Name Value Range Interpretation Code Description Data Radha rce(s) Supporting Document(s) AST/SGOT 17 U/L 7-37 AST/SGOT AALIYAH ([facility]) alkaline phosphatase 80 U/L 45-117 Alkaline Phosph atase AALIYAH ([facility]) ALT/SGPT 25 U/L 12-78 ALT/SGPT AALIYAH ([facility]) albumin 4.0 gm/dL 3.2-5.2 Albumin AALIYAH ([facility]) bilirubin,direct < 0.1 0.0-0.2 Bilirubin,direct AT [facility] ([facility]) bilirubin,total 0.3 mg/dL 0.2-1.0 Bilirubin,total ATHE NA ([facility]) total protein 8.0 gm/dL 6.4-8.2 Total Protein AALIYAH ( [facility]) albumin/globulin ratio 1.2-2.2 Below low normal Albumin /globulin Ratio AALIYAH ([facility]) ID Date Data Source [id number] 08/21/2020 09:59:00 AM EST AALIYAH ([facility]) Name Value Range Interpretation Code Description Data Radha rce(s) Supporting Document(s) white blood count 7.9 10 4.0-10.0 White Blood Count AALIYAH ([facility]) red blood count 4.48 10 4.00-5.40 Red Blood Count ATHE NA ([facility]) hemoglobin 11.0 g/dL 12.0-15.5 Below low normal Hemoglobin AALIYAH ( [facility]) mean corpuscular volume 79.9 fL 80.0-96.0 Below low normal Mean Corpuscular Volume AALIYAH ([facility]) hematocrit 35.8 % 36.0-47.0 Below low normal Hematocrit AALIYAH ( [facility]) mean corpuscular hemoglobin 24.6 pg 27.0-33.0 Below low nor mal Mean Corpuscular Hemoglobin AALIYAH ([facility]) mean corpuscular HGB conc 30.7 g/dL 32.0-36.5 Below low josseline l Mean Corpuscular HGB Conc AALIYAH ([facility]) red cell distribution width 16.2 % 11.5-14.5 Above high no rmal Red Cell Distribution Width AALIYAH ([facility]) platelet count, automated 436 10 150-450 Platelet C ount, Automated AALIYAH ([facility]) lymph % 22.0 % 24.0-44.0 Below low normal Lymph % AALIYAH ( [facility]) neutrophils % 67.7 % 36.0-66.0 Above high normal Neutrophils % A THENA ([facility]) mono % 6.7 % 0.0-5.0 Above high normal [place]t % AALIYAH ([facility]) eos % 1.8 % 0.0-3.0 Eos % AALIYAH ([facility]) baso % 1.3 % 0.0-1.0 Above high normal Baso % AALIYAH ([facility]) immature granulocyte % 0.5 % 0-3.0 Immature Gran ulocyte % AALIYAH ([facility]) neutrophils # 5.3 10 1.5-8.5 Neutrophils # AALIYAH ( [facility]) nucleated red blood cell % 0.0 % 0-0 Nucleated Red Blood Cell % AALIYAH ([facility]) lymph # 1.7 10 1.5-5.0 Lymph # AALIYAH ([facility]) mono # 0.5 10 0.0-0.8 Routt # AALIYAH ([facility]) eos # 0.1 10 0.0-0.5 Eos # AALIYAH ([facility]) baso # 0.1 10 0.0-0.2 Baso # AALIYAH ([facility]) ID Date Data Source [id number] 08/21/2020 09:59:00 AM EST AALIYAH ([facility] [place] Name Value Range Interpretation Code Description Data Radha rce(s) Supporting Document(s) lipase 877 U/L 73-393 Above high normal Lipase AALIYAH ([facility]) ID Date Data Source [id number] 08/21/2020 09:59:00 AM EST AALIYAH ([facility]) Name Value Range Interpretation Code Description Data Radha rce(s) Supporting Document(s) blood urea nitrogen 9 mg/dL 7-18 Blood Urea Nitro gen AALIYAH ([facility]) creatinine for GFR 0.64 mg/dL 0.55-1.30 Creatinine for GF R AALIYAH ([facility]) glucose, fasting 91 mg/dL 70-100 Glucose, Fasting AT [facility]) carbon dioxide level 23 mEq/L 21-32 Carbon Dioxide Level AALIYAH ([facility]) glomerular filtration rate > 60.0 >60 Glomerula r Filtration Rate AALIYAH ([facility]) potassium serum 3.7 mEq/L 3.5-5.1 Potassium Serum ATHE NA ([facility]) sodium level 139 mEq/L 136-145 Sodium Level AALIYAH ([facility]) chloride level 108 mEq/L 98-107 Above high normal Chloride Level AALIYAH ([facility]) calcium level 8.5 mg/dL 8.5-10.1 Calcium Level AALIYAH ( [facility]) anion gap 8 mEq/L 8-16 Anion Gap AALIYAH ([facility]) ID Date Data Source [id number] 08/21/2020 09:59:00 AM EST AALIYAH ([facility]) Name Value Range Interpretation Code Description Data Radha rce(s) Supporting Document(s) ALT/SGPT 25 U/L 12-78 ALT/SGPT AALIYAH ([facility]) bilirubin,total 0.3 mg/dL 0.2-1.0 Bilirubin,total ATHE NA ([facility]) AST/SGOT 17 U/L 7-37 AST/SGOT AALIYAH ([facility]) alkaline phosphatase 80 U/L 45-117 Alkaline Phosph atase AALIYAH ([facility]) total protein 8.0 gm/dL 6.4-8.2 Total Protein AALIYAH ( [facility]) albumin 4.0 gm/dL 3.2-5.2 Albumin AALIYAH ([facility]) bilirubin,direct < 0.1 0.0-0.2 Bilirubin,direct AT [facility] ([facility]) albumin/globulin ratio 1.2-2.2 Below low normal Albumin /globulin Ratio AALIYAH ([facility]) ID Date Data Source [id number] 08/21/2020 09:59:00 AM EST MCRAE ([facility]) Name Value Range Interpretation Code Description Data Radha rce(s) Supporting Document(s) red blood count 4.48 10 4.00-5.40 Red Blood Count ATHE ([facility]) white blood count 7.9 10 4.0-10.0 White Blood Count AALIYAH ([facility]) hemoglobin 11.0 g/dL 12.0-15.5 Below low normal Hemoglobin AALIYAH ( [facility]) mean corpuscular hemoglobin 24.6 pg 27.0-33.0 Below low nor mal Mean Corpuscular Hemoglobin AALIYAH ([facility]) mean corpuscular HGB conc 30.7 g/dL 32.0-36.5 Below low josseline l Mean Corpuscular HGB Conc AALIYAH ([facility]) mean corpuscular volume 79.9 fL 80.0-96.0 Below low normal Mean Corpuscular Volume AALIYAH ([facility]) hematocrit 35.8 % 36.0-47.0 Below low normal Hematocrit AALIYAH ( [facility]) red cell distribution width 16.2 % 11.5-14.5 Above high no rmal Red Cell Distribution Width AALIYAH ([facility]) neutrophils % 67.7 % 36.0-66.0 Above high normal Neutrophils % A THENA ([facility]) platelet count, automated 436 10 150-450 Platelet C ount, Automated AALIYAH ([facility]) lymph % 22.0 % 24.0-44.0 Below low normal Lymph % AALIYAH ( [facility]) mono % 6.7 % 0.0-5.0 Above high normal [place] % AALIYAH ([facility]) baso % 1.3 % 0.0-1.0 Above high normal Baso % AALIYAH ([facility]) immature granulocyte % 0.5 % 0-3.0 Immature Gran ulocyte % AALIYAH ([facility]) eos % 1.8 % 0.0-3.0 Eos % AALIYAH ([facility]) neutrophils # 5.3 10 1.5-8.5 Neutrophils # AALIYAH ( [facility]) mono # 0.5 10 0.0-0.8 [place] # AALIYAH ([facility]) lymph # 1.7 10 1.5-5.0 Lymph # AALIYAH ([facility]) nucleated red blood cell % 0.0 % 0-0 Nucleated Red Blood Cell % AALIYAH ([facility]) baso # 0.1 10 0.0-0.2 Baso # AALIYAH ([facility]) eos # 0.1 10 0.0-0.5 Eos # AALIYAH ([facility]) ID Date Data Source [id number] 08/21/2020 09:59:00 AM EST AALIYAH ([facility]) Name Value Range Interpretation Code Description Data Radha rce(s) Supporting Document(s) lipase 877 U/L 73-393 Above high normal Lipase AALIYAH ([facility]) ID Date Data Source [id number] 08/21/2020 09:59:00 AM EST AALIYAH ([facility]) Name Value Range Interpretation Code Description Data Radha rce(s) Supporting Document(s) creatinine for GFR 0.64 mg/dL 0.55-1.30 Creatinine for GF R AALIYAH ([facility]) blood urea nitrogen 9 mg/dL 7-18 Blood Urea Nitro gen AALIYAH ([facility]) glucose, fasting 91 mg/dL 70-100 Glucose, Fasting AT [facility] ([facility]) sodium level 139 mEq/L 136-145 Sodium Level AALIYAH ([facility]) potassium serum 3.7 mEq/L 3.5-5.1 Potassium Serum ATHE NA ([facility]) glomerular filtration rate > 60.0 >60 Glomerula r Filtration Rate AALIYAH ([facility]) carbon dioxide level 23 mEq/L 21-32 Carbon Dioxide Level AALIYAH ([facility]) calcium level 8.5 mg/dL 8.5-10.1 Calcium Level AALIYAH ( [facility]) anion gap 8 mEq/L 8-16 Anion Gap AALIYAH ([facility]) chloride level 108 mEq/L 98-107 Above high normal Chloride Level AALIYAH ([facility]) ID Date Data Source [id number] 08/21/2020 09:59:00 AM EST AALIYAH ([facility]) Name Value Range Interpretation Code Description Data Radha rce(s) Supporting Document(s) ALT/SGPT 25 U/L 12-78 ALT/SGPT AALIYAH ([facility]) AST/SGOT 17 U/L 7-37 AST/SGOT AALIYAH ([facility]) bilirubin,total 0.3 mg/dL 0.2-1.0 Bilirubin,total ATHE ([facility] [place]) bilirubin,direct < 0.1 0.0-0.2 Bilirubin,direct AT [facility]) alkaline phosphatase 80 U/L 45-117 Alkaline Phosph atase AALIYAH ([facility]) albumin/globulin ratio 1.2-2.2 Below low normal Albumin /globulin Ratio AALIYAH ([facility] [place]) albumin 4.0 gm/dL 3.2-5.2 Albumin AALIYAH ([facility]) total protein 8.0 gm/dL 6.4-8.2 Total Protein AALIYAH ( [facility]) ID Date Data Source [id number] 08/21/2020 09:59:00 AM EST AALIYAH ([facility]) Name Value Range Interpretation Code Description Data Radha rce(s) Supporting Document(s) white blood count 7.9 10 4.0-10.0 White Blood Count AALIYAH ([facility]) red blood count 4.48 10 4.00-5.40 Red Blood Count ATHE NA ([facility]) hemoglobin 11.0 g/dL 12.0-15.5 Below low normal Hemoglobin AALIYAH ( [facility] [place]) hematocrit 35.8 % 36.0-47.0 Below low normal Hematocrit AALIYAH ( [facility]) mean corpuscular volume 79.9 fL 80.0-96.0 Below low normal Mean Corpuscular Volume AALIYAH ([facility] [place]) mean corpuscular HGB conc 30.7 g/dL 32.0-36.5 Below low josseline l Mean Corpuscular HGB Conc AALIYAH ([facility] [place]) mean corpuscular hemoglobin 24.6 pg 27.0-33.0 Below low nor mal Mean Corpuscular Hemoglobin AALIYAH ([facility]) platelet count, automated 436 10 150-450 Platelet C ount, Automated AALIYAH ([facility]) red cell distribution width 16.2 % 11.5-14.5 Above high no rmal Red Cell Distribution Width AALIYAH ([facility] [place]) lymph % 22.0 % 24.0-44.0 Below low normal Lymph % AALIYAH ( [facility] [place]) mono % 6.7 % 0.0-5.0 Above high normal [place] % AALIYAH ([facility] [place]) neutrophils % 67.7 % 36.0-66.0 Above high normal Neutrophils % A THENA ([facility] [place]) immature granulocyte % 0.5 % 0-3.0 Immature Gran ulocyte % AALIYAH ([facility] [place]) baso % 1.3 % 0.0-1.0 Above high normal Baso % AALIYAH ([facility]) eos % 1.8 % 0.0-3.0 Eos % AALIYAH ([facility]) neutrophils # 5.3 10 1.5-8.5 Neutrophils # AALIYAH ( [facility]) nucleated red blood cell % 0.0 % 0-0 Nucleated Red Blood Cell % AALIYAH ([facility]) lymph # 1.7 10 1.5-5.0 Lymph # AALIYAH ([facility]) mono # 0.5 10 0.0-0.8 [place] # AALIYAH ([facility]) baso # 0.1 10 0.0-0.2 Baso # AALIYAH ([facility]) eos # 0.1 10 0.0-0.5 Eos # AALIYAH ([facility]) ID Date Data Source [id number] 08/21/2020 09:58:00 AM EST MCRAE ([facility]) Name Value Range Interpretation Code Description Data Radha rce(s) Supporting Document(s) color, urine rfx yellow yellow Color, Urine Rfx AT [place] ([facility]) appearance, urine rfx clear clear Appearance, Ur ine Rfx MCRAE ([facility] [place]) specific gravity ur auto rfx 1.002-1.035 Specif ic [employer] Ur Auto Rfx MCRAE ([facility]) protein, urine auto rfx negative negative Protein, Uri ne Auto Rfx MCRAE ([facility]) pH,urine rfx 5.0 units 5.0-9.0 pH,urine Rfx AALIYAH ([facility]) glucose, urine (UA) auto rfx negative negative Glucose , Urine (UA) Auto Rfx MCRAE ([facility] [place]) urobilinogen, urine auto rfx 0.2 mg/dL 0.0-2.0 Urobili nogen, Urine Auto Rfx MCRAE ([facility]) ketone, urine auto rfx negative negative Ketone, Urine Auto Rfx MCRAE ([facility]) nitrite, urine auto rfx negative negative Nitrite, Uri ne Auto Rfx MCRAE ([facility]) blood, urine blood rfx negative negative Blood, Urine Blood Rfx MCRAE ([facility] [place]) bilirubin, urine auto rfx negative negative Bilirubin, Urine Auto Rfx MCRAE ([facility]) leukocyte esterase ur auto rfx negative negative Leukocyte Esterase Ur Auto Rfx MCRAE ([facility]) RBC, urine auto rfx 1 /hpf 0-3 RBC, Urine Auto Rfx AALIYAH ([facility]) WBC, urine auto rfx 1 /hpf 0-3 WBC, Urine Auto Rfx AALIYAH ([facility]) bacteria, urine auto rfx negative negative Bacteria, U rine Auto Rfx AALIYAH ([facility]) squam epithelial cell ur aurfx 1 /hpf 0-6 Squam Epithelial Cell Ur Aurfx MCRAE ([facility] [place]) hyaline cast, urine auto rfx 0 /lpf 0-1 Hyaline Cast, Urine Auto Rfx MCRAE ([facility]) mucus, urine rfx small negative Mucus, Urine Rfx AT [facility] ([facility]) ID Date Data Source [id number] 08/21/2020 09:58:00 AM EST MCRAE ([facility] [place]) Name Value Range Interpretation Code Description Data Radha rce(s) Supporting Document(s) appearance, urine rfx clear clear Appearance, Ur ine Rfx MCRAE ([facility] [place]) pH,urine rfx 5.0 units 5.0-9.0 pH,urine Rfx AALIYAH ([facility]) color, urine rfx yellow yellow Color, Urine Rfx AT [facility] ([facility] [place]) protein, urine auto rfx negative negative Protein, Uri ne Auto Rfx MCRAE ([facility]) glucose, urine (UA) auto rfx negative negative Glucose , Urine (UA) Auto Rfx MCRAE ([facility] [place]) specific gravity ur auto rfx 1.002-1.035 Specif ic [employer] Ur Auto Rfx MCRAE ([facility] [place]) urobilinogen, urine auto rfx 0.2 mg/dL 0.0-2.0 Urobili nogen, Urine Auto Rfx MCRAE ([facility]) ketone, urine auto rfx negative negative Ketone, Urine Auto Rfx AALIYAH ([facility] [place]) nitrite, urine auto rfx negative negative Nitrite, Uri ne Auto Rfx MCRAE ([facility]) bilirubin, urine auto rfx negative negative Bilirubin, Urine Auto Rfx MCRAE ([facility] [place]) blood, urine blood rfx negative negative Blood, Urine Blood Rfx MCRAE ([facility] [place]) WBC, urine auto rfx 1 /hpf 0-3 WBC, Urine Auto Rfx AALIYAH ([facility] [place]) leukocyte esterase ur auto rfx negative negative Leukocyte Esterase Ur Auto Rfx MCRAE ([facility] [place]) squam epithelial cell ur aurfx 1 /hpf 0-6 Squam Epithelial Cell Ur Aurfx AALIYAH ([facility] [place]) RBC, urine auto rfx 1 /hpf 0-3 RBC, Urine Auto Rfx AALIYAH ([facility]) bacteria, urine auto rfx negative negative Bacteria, U rine Auto Rfx MCRAE ([facility] [place]) hyaline cast, urine auto rfx 0 /lpf 0-1 Hyaline Cast, Urine Auto Rfx MCRAE ([facility] [place]) mucus, urine rfx small negative Mucus, Urine Rfx AT [facility] ([facility] [place]) ID Date Data Source [id number] 08/21/2020 09:58:00 AM EST MCRAE ([facility]) Name Value Range Interpretation Code Description Data Radha rce(s) Supporting Document(s) appearance, urine rfx clear clear Appearance, Ur ine Rfx MCRAE ([facility] [place]) pH,urine rfx 5.0 units 5.0-9.0 pH,urine Rfx MCRAE ([facility]) color, urine rfx yellow yellow Color, Urine Rfx AT [facility] ([facility] [place]) specific gravity ur auto rfx 1.002-1.035 Specif ic [employer] Ur Auto Rfx AALIYAH ([facility]) glucose, urine (UA) auto rfx negative negative Glucose , Urine (UA) Auto Rfx AALIYAH ([facility]) protein, urine auto rfx negative negative Protein, Uri ne Auto Rfx MCRAE ([facility]) ketone, urine auto rfx negative negative Ketone, Urine Auto Rfx MCRAE ([facility]) bilirubin, urine auto rfx negative negative Bilirubin, Urine Auto Rfx MCRAE ([facility] [place]) nitrite, urine auto rfx negative negative Nitrite, Uri ne Auto Rfx MCRAE ([facility]) urobilinogen, urine auto rfx 0.2 mg/dL 0.0-2.0 Urobili nogen, Urine Auto Rfx MCRAE ([facility]) blood, urine blood rfx negative negative Blood, Urine Blood Rfx MCRAE ([facility]) leukocyte esterase ur auto rfx negative negative Leukocyte Esterase Ur Auto Rfx AALIYAH ([facility] [place]) WBC, urine auto rfx 1 /hpf 0-3 WBC, Urine Auto Rfx AALIYAH ([facility] [place]) RBC, urine auto rfx 1 /hpf 0-3 RBC, Urine Auto Rfx MCRAE ([facility] [place]) squam epithelial cell ur aurfx 1 /hpf 0-6 Squam Epithelial Cell Ur Aurfx MCRAE ([facility] [place]) mucus, urine rfx small negative Mucus, Urine Rfx AT [facility] ([facility]) bacteria, urine auto rfx negative negative Bacteria, U rine Auto Rfx MCRAE ([facility]) hyaline cast, urine auto rfx 0 /lpf 0-1 Hyaline Cast, Urine Auto Rfx [facility]CRAE ([facility]) ID Date Data Source [id number] 08/21/2020 09:58:00 AM EST MCRAE ([facility]) Name Value Range Interpretation Code Description Data Radha rce(s) Supporting Document(s) appearance, urine rfx clear clear Appearance, Ur ine Rfx MCRAE ([facility]) color, urine rfx yellow yellow Color, Urine Rfx AT [facility] ([facility] [place]) specific gravity ur auto rfx 1.002-1.035 Specif ic [employer] Ur Auto Rfx MCRAE ([facility]) pH,urine rfx 5.0 units 5.0-9.0 pH,urine Rfx AALIYAH ([facility]) protein, urine auto rfx negative negative Protein, Uri ne Auto Rfx MCRAE ([facility]) ketone, urine auto rfx negative negative Ketone, Urine Auto Rfx MCRAE ([facility]) glucose, urine (UA) auto rfx negative negative Glucose , Urine (UA) Auto Rfx MCRAE ([facility]) nitrite, urine auto rfx negative negative Nitrite, Uri ne Auto Rfx MCRAE ([facility]) bilirubin, urine auto rfx negative negative Bilirubin, Urine Auto Rfx AALIYAH ([facility]) urobilinogen, urine auto rfx 0.2 mg/dL 0.0-2.0 Urobili nogen, Urine Auto Rfx MCRAE ([facility] [place]) WBC, urine auto rfx 1 /hpf 0-3 WBC, Urine Auto Rfx MCRAE ([facility]) blood, urine blood rfx negative negative Blood, Urine Blood Rfx MCRAE ([facility]) leukocyte esterase ur auto rfx negative negative Leukocyte Esterase Ur Auto Rfx AALIYAH ([facility]) bacteria, urine auto rfx negative negative Bacteria, U rine Auto Rfx MCRAE ([facility]) squam epithelial cell ur aurfx 1 /hpf 0-6 Squam Epithelial Cell Ur Aurfx MCRAE ([facility]) RBC, urine auto rfx 1 /hpf 0-3 RBC, Urine Auto Rfx [facility] ([facility]) hyaline cast, urine auto rfx 0 /lpf 0-1 Hyaline Cast, Urine Auto Rfx MCRAE ([facility]) mucus, urine rfx small negative Mucus, Urine Rfx AT [facility] ([facility]) ID Date Data Source [id number] 08/21/2020 09:58:00 AM EST MCRAE ([facility]) Name Value Range Interpretation Code Description Data Radha rce(s) Supporting Document(s) pH,urine rfx 5.0 units 5.0-9.0 pH,urine Rfx MCRAE ([facility]) color, urine rfx yellow yellow Color, Urine Rfx AT [facility] ([facility]) appearance, urine rfx clear clear Appearance, Ur ine Rfx MCRAE ([facility]) glucose, urine (UA) auto rfx negative negative Glucose , Urine (UA) Auto Rfx MCRAE ([facility]) specific gravity ur auto rfx 1.002-1.035 Specif ic [employer] Ur Auto Rfx MCRAE ([facility]) ketone, urine auto rfx negative negative Ketone, Urine Auto Rfx [facility] ([facility]) protein, urine auto rfx negative negative Protein, Uri ne Auto Rfx M[facility] ([facility]) nitrite, urine auto rfx negative negative Nitrite, Uri ne Auto Rfx [facility] ([facility]) bilirubin, urine auto rfx negative negative Bilirubin, Urine Auto Rfx [facility] ([facility]) urobilinogen, urine auto rfx 0.2 mg/dL 0.0-2.0 Urobili nogen, Urine Auto Rfx AALIYAH ([facility]) blood, urine blood rfx negative negative Blood, Urine Blood Rfx MCRAE ([facility]) WBC, urine auto rfx 1 /hpf 0-3 WBC, Urine Auto Rfx [facility] ([facility]) RBC, urine auto rfx 1 /hpf 0-3 RBC, Urine Auto Rfx [facility] ([facility] [place]) leukocyte esterase ur auto rfx negative negative Leukocyte Esterase Ur Auto Rfx [facility] ([facility]) bacteria, urine auto rfx negative negative Bacteria, U rine Auto Rfx [facility] ([facility]) hyaline cast, urine auto rfx 0 /lpf 0-1 Hyaline Cast, Urine Auto Rfx [facility] ([facility]) mucus, urine rfx small negative Mucus, Urine Rfx AT [facility] ([facility]) squam epithelial cell ur aurfx 1 /hpf 0-6 Squam Epithelial Cell Ur Aurfx MCRAE ([facility]) ID Date Data Source [id number] 08/21/2020 09:58:00 AM EST MCRAE ([facility]) Name Value Range Interpretation Code Description Data Radha rce(s) Supporting Document(s) appearance, urine rfx clear clear Appearance, Ur ine Rfx [facility]CRAE ([facility]) color, urine rfx yellow yellow Color, Urine Rfx AT [facility] ([facility]) pH,urine rfx 5.0 units 5.0-9.0 pH,urine Rfx MCRAE ([facility]) specific gravity ur auto rfx 1.002-1.035 Specif ic [employer] Ur Auto Rfx AALIYAH ([facility]) protein, urine auto rfx negative negative Protein, Uri ne Auto Rfx AALIYAH ([facility]) glucose, urine (UA) auto rfx negative negative Glucose , Urine (UA) Auto Rfx AALIYAH ([facility]) ketone, urine auto rfx negative negative Ketone, Urine Auto Rfx AALIYAH ([facility]) urobilinogen, urine auto rfx 0.2 mg/dL 0.0-2.0 Urobili nogen, Urine Auto Rfx AALIYAH ([facility]) nitrite, urine auto rfx negative negative Nitrite, Uri ne Auto Rfx [facility]CRAE ([facility]) bilirubin, urine auto rfx negative negative Bilirubin, Urine Auto Rfx [facility] ([facility]) leukocyte esterase ur auto rfx negative negative Leukocyte Esterase Ur Auto Rfx [facility] ([facility]) blood, urine blood rfx negative negative Blood, Urine Blood Rfx MCRAE ([facility]) WBC, urine auto rfx 1 /hpf 0-3 WBC, Urine Auto Rfx [facility] ([facility]) RBC, urine auto rfx 1 /hpf 0-3 RBC, Urine Auto Rfx [facility] ([facility]) bacteria, urine auto rfx negative negative Bacteria, U rine Auto Rfx [facility] ([facility]) squam epithelial cell ur aurfx 1 /hpf 0-6 Squam Epithelial Cell Ur Aurfx M[facility]AE ([facility]) mucus, urine rfx small negative Mucus, Urine Rfx AT [facility] ([facility]) hyaline cast, urine auto rfx 0 /lpf 0-1 Hyaline Cast, Urine Auto Rfx [facility] ([facility]) ID Date Data Source [id number] 08/05/2020 11:18:00 AM EST AALIYAH ([facility]) Name Value Range Interpretation Code Description Data Radha rce(s) Supporting Document(s) sars-cov-2 negative negative Sars-cov-2 [facility]) ID Date Data Source [id number] 08/05/2020 11:18:00 AM EST MCRAE ([facility]) Name Value Range Interpretation Code Description Data Radha rce(s) Supporting Document(s) sars-cov-2 negative negative Sars-cov-2 [facility] ([facility]) ID Date Data Source [id number] 08/05/2020 11:18:00 AM EST AALIYAH ([facility]) Name Value Range Interpretation Code Description Data Radha rce(s) Supporting Document(s) sars-cov-2 negative negative Sars-cov-2 [facility] ([facility]) ID Date Data Source [id number] 08/05/2020 11:18:00 AM EST MCRAE ([facility]) Name Value Range Interpretation Code Description Data Radha rce(s) Supporting Document(s) sars-cov-2 negative negative Sars-cov-2 [facility] ([facility]) ID Date Data Source [id number] 08/05/2020 11:18:00 AM EST M[facility]AE ([facility]) Name Value Range Interpretation Code Description Data Radha rce(s) Supporting Document(s) sars-cov-2 negative negative Sars-cov-2 [facility] ([facility]) ID Date Data Source [id number] 08/05/2020 11:18:00 AM EST MCRAE ([facility]) Name Value Range Interpretation Code Description Data Radha rce(s) Supporting Document(s) sars-cov-2 negative negative Sars-cov-2 [facility] ([facility]) ID Date Data Source [id number] 08/05/2020 10:15:00 AM EST [facility] Name Value Range Interpretation Code Description Data Radha rce(s) Supporting Document(s) SARS coronavirus 2 RdRp gene [Presence] in Respiratory specimen by STEPHANIE with probe detection Not detected [place] This lab was ordered by [facility] and reported by [facility]. ID Date Data Source [id number] 07/10/2020 12:00:00 AM EST [facility] Name Value Range Interpretation Code Description Data Radha rce(s) Supporting Document(s) SARS coronavirus 2 Ag Negative [place] This lab was ordered by [facility] and reported by [facility]. ID Date Data Source [id number] 05/03/2020 11:21:00 AM EDT AALIYAH ([facility]) Name Value Range Interpretation Code Description Data Radha rce(s) Supporting Document(s) Leukocytes - Leukocytes AALIYAH ([facility]) Specific [place] Specific [place] AT RITO ([facility]) Nitrite negative Nitrite AALIYAH ([facility]) Protein trace Protein AALIYAH ([facility]) Urobilinogen negative Urobilinogen AALIYAH ([facility]) pH Ph AALIYAH ([facility]) Blood 2+ Blood AALIYAH ([facility]) Color dark yellow Color AALIYAH ([facility]) Appearance clear Appearance AALIYAH ([facility]) Ketone - Ketone AALIYAH ([facility]) Bilirubin 1+ Bilirubin AALIYAH ([facility]) Glucose - Glucose AALIYAH ([facility]) ID Date Data Source [id number] 05/03/2020 11:00:00 AM EDT AALIYAH ([facility]) Name Value Range Interpretation Code Description Data Radha rce(s) Supporting Document(s) ID Date Data Source [id number] 05/03/2020 11:00:00 AM EDT AALIYAH ([facility]) Name Value Range Interpretation Code Description Data Radha rce(s) Supporting Document(s) ID Date Data Source [id number] 05/03/2020 11:00:00 AM EDT AALIYAH ([facility]) Name Value Range Interpretation Code Description Data Radha rce(s) Supporting Document(s) ID Date Data Source [id number] 05/03/2020 11:00:00 AM EDT [facility]) Name Value Range Interpretation Code Description Data Radha rce(s) Supporting Document(s) ID Date Data Source [id number] 05/03/2020 11:00:00 AM EDT [facility]) Name Value Range Interpretation Code Description Data Radha rce(s) Supporting Document(s) ID Date Data Source [id number] 05/03/2020 11:00:00 AM EDT [facility]) Name Value Range Interpretation Code Description Data Radha rce(s) Supporting Document(s) ID Date Data Source [id number] 05/03/2020 11:00:00 AM EDT [facility]) Name Value Range Interpretation Code Description Data Radha rce(s) Supporting Document(s) ID Date Data Source [id number] 04/26/2020 09:28:00 AM EDT [facility] Name Value Range Interpretation Code Description Data Radha rce(s) Supporting Document(s) HCT 36.0 % 36.0-47.0 N [facility] HGB 10.6 g/dL 12.0-15.5 L [facility] MCH 29.4 G/DL pg 32.0-36.5 L [facility] MCHC 23.7 PG % 27.0-33.0 L [facility] PLATELETS 379 10 10*3/mm3 150-450 N [facility] RBC 4.47 10 10*6/mm3 4.00-5.40 N [facility] RDW 20.7 % 11.5-14.5 H [facility] WBC TOTAL 6.3 4.0-10.0 N [facility] ID Date Data Source [id number] 04/26/2020 09:28:00 AM EDT [facility] Name Value Range Interpretation Code Description Data Radha rce(s) Supporting Document(s) T3, TOTAL 98.8 ng/dL 60.0-181.[address] [facility] T4, FREE 0.77 ng/dL 0.76-1.[address] [facility] TSH 2.970 microintl units/mL 0.358-3.740 N [facility] ID Date Data Source [id number] 04/10/2020 10:28:00 AM EDT MEDENT ([facility], [facility]) Name Value Range Interpretation Code Description Data Radha rce(s) Supporting Document(s) Bacteria identified in Urine by Culture Laboratory test result MEDENT ([facility], [facility]) <content>FULL REPORT IN LAB NOTES (eCW a [...] BETA LACTAMASE IV NEGATIVE FOR ESBL</content>
<content></content> Procedure Social History Code Duration Value Status Description Data Source(s ) Smoking 06/05/2020 12:00:00 AM EST Patient is a former smoker completed Patient is a former smoker [facility] Vital Signs ID Date Data Source [id number] Name Value Range Interpretation Code Description Data Source(s) Body height 63 [in_i] 63 [in_i] [facility] ([facility]) 5'3" Body weight 130.00 [lb_av] 130.00 [lb_av] MEDEN T ([facility]) Systolic blood pressure 112 mm[Hg] 112 mm[Hg] M EDENT ([facility]) Diastolic blood pressure 71 mm[Hg] 71 mm[Hg] MEDENT ([facility]) Heart rate 85 /min 85 /min [facility] ([facility]) Body mass index (BMI) [Ratio] 23.0 kg/m2 23.0 k g/m2 MEDENT ([facility]) Body weight 58.968 kg 58.968 kg MED[facility] ([facility]) Body temperature 97.7 [degF] 97.7 [degF] MEDENT ([facility]) Diastolic blood pressure 72 mm[Hg] 72 mm[Hg] AALIYAH ([facility]) Body height 65 [in_i] 65 [in_i] AALIYAH ([facility]) Body mass index (BMI) [Ratio] 21.6 kg/m2 21.6 k g/m2 AALIYAH ([facility]) Systolic blood pressure 108 mm[Hg] 108 mm[Hg] A THENA ([facility]) Body weight 2080 [oz_av] 2080 [oz_av] AALIYAH ([facility]) Systolic blood pressure 121 mm[Hg] 121 mm[Hg] M EDENT ([facility], [facility]) Diastolic blood pressure 78 mm[Hg] 78 mm[Hg] MEDENT ([facility], [facility]) Heart rate 76 /min 76 /min MED[facility] ([facility]) Respiratory rate 18 /min 18 /min MEDENT ( [facility], [facility]) Oxygen saturation in Arterial blood by Pulse oximetry 99 % 99 % MEDENT ([facility], [facility]) Body temperature 98.4 [degF] 98.4 [degF] MEDENT ([facility], [facility]) Body weight 130.00 [lb_av] 130.00 [lb_av] MEDEN T ([facility], [facility]) Body height 63 [in_i] 63 [in_i] MEDENT ([facility], [facility]) 5'3" Body mass index (BMI) [Ratio] 23.0 kg/m2 23.0 k g/m2 MEDENT ([facility]) Diastolic blood pressure 75 mm[Hg] 75 mm[Hg] AALIYAH ([facility]) Body height 65 [in_i] 65 [in_i] AALIYAH ([facility]) Body mass index (BMI) [Ratio] 22 kg/m2 22 kg/ m2 AALIYAH ([facility]) Systolic blood pressure 109 mm[Hg] 109 mm[Hg] [facility] Body weight 2112 [oz_av] 2112 [oz_av] AALIYAH ([facility]) Diastolic blood pressure 75 mm[Hg] 75 mm[Hg] AALIYAH ([facility]) Body height 65 [in_i] 65 [in_i] AALIYAH ([facility]) Body mass index (BMI) [Ratio] 22 kg/m2 22 kg/ m2 AALIYAH ([facility]) Systolic blood pressure 109 mm[Hg] 109 mm[Hg] A [facility] ([facility]) Body weight 2112 [oz_av] 2112 [oz_av] AALIYAH ([facility]) Diastolic blood pressure 75 mm[Hg] 75 mm[Hg] AALIYAH ([facility]) Body height 65 [in_i] 65 [in_i] AALIYAH ([facility]) Body mass index (BMI) [Ratio] 22 kg/m2 22 kg/ m2 AALIYAH ([facility]) Systolic blood pressure 109 mm[Hg] 109 mm[Hg] A THENA ([facility]) Body weight 2112 [oz_av] 2112 [oz_av] AALIYAH ([facility]) Diastolic blood pressure 75 mm[Hg] 75 mm[Hg] AALIYAH ([facility]) Body height 65 [in_i] 65 [in_i] AALIYAH ([facility]) Body mass index (BMI) [Ratio] 22 kg/m2 22 kg/ m2 AALIYAH ([facility]) Systolic blood pressure 109 mm[Hg] 109 mm[Hg] [facility]) Body weight 2112 [oz_av] 2112 [oz_av] AALIYAH ([facility]) Diastolic blood pressure 72 mm[Hg] 72 mm[Hg] AALIYAH ([facility]) Body height 65 [in_i] 65 [in_i] AALIYAH ([facility]) Body mass index (BMI) [Ratio] 21.8 kg/m2 21.8 k g/m2 AALIYAH ([facility]) Systolic blood pressure 108 mm[Hg] 108 mm[Hg] A [facility] ([facility]) Body weight 2095 [oz_av] 2095 [oz_av] AALIYAH ([facility]) Diastolic blood pressure 72 mm[Hg] 72 mm[Hg] AALIYAH ([facility]) Body height 65 [in_i] 65 [in_i] AALIYAH ([facility]) Body mass index (BMI) [Ratio] 21.8 kg/m2 21.8 k g/m2 AALIYAH ([facility]) Systolic blood pressure 108 mm[Hg] 108 mm[Hg] A [facility] ([facility]) Body weight 2095 [oz_av] 2095 [oz_av] AALIYAH ([facility]) Diastolic blood pressure 72 mm[Hg] 72 mm[Hg] AALIYAH ([facility]) Body height 65 [in_i] 65 [in_i] AALIYAH ([facility]) Body mass index (BMI) [Ratio] 21.8 kg/m2 21.8 k g/m2 AALIYAH ([facility]) Systolic blood pressure 108 mm[Hg] 108 mm[Hg] A THENA ([facility]) Body weight 2095 [oz_av] 2095 [oz_av] AALIYAH ([facility]) Diastolic blood pressure 72 mm[Hg] 72 mm[Hg] AALIYAH ([facility]) Body height 65 [in_i] 65 [in_i] AALIYAH ([facility]) Body mass index (BMI) [Ratio] 21.8 kg/m2 21.8 k g/m2 AALIYAH ([facility]) Systolic blood pressure 108 mm[Hg] 108 mm[Hg] A [facility] ([facility]) Body weight 2095 [oz_av] 2096 [oz_av] AALIYAH ([facility]) Diastolic blood pressure 72 mm[Hg] 72 mm[Hg] AALIYAH ([facility]) Body height 65 [in_i] 65 [in_i] AALIYAH ([facility]) Body mass index (BMI) [Ratio] 21.8 kg/m2 21.8 k g/m2 AALIYAH ([facility]) Systolic blood pressure 108 mm[Hg] 108 mm[Hg] A THENA ([facility]) Body weight 2095 [oz_av] 2096 [oz_av] AALIYAH ([facility]) Systolic blood pressure 113 mm[Hg] 113 mm[Hg] M EDENT ([facility], [facility]) Diastolic blood pressure 87 mm[Hg] 87 mm[Hg] MEDENT ([facility], [facility]) Heart rate 75 /min 75 /min MEDENT ([facility], [facility]) Respiratory rate 14 /min 14 /min MEDENT ( [facility], [facility]) Oxygen saturation in Arterial blood by Pulse oximetry 99 % 99 % MEDENT ([facility], [facility]) Body temperature 98.7 [degF] 98.7 [degF] MEDENT ([facility], [facility]) Body weight 140.00 [lb_av] 140.00 [lb_av] MEDEN T ([facility], [facility]) Body height 63 [in_i] 63 [in_i] MEDENT ([facility], [facility]) 5'3" Body mass index (BMI) [Ratio] 24.8 kg/m2 24.8 k g/m2 MEDENT ([facility], [facility]) Body height 63 [in_i] 63 [in_i] MEDENT ([facility] 5'3" Body weight 146.00 [lb_av] 146.00 [lb_av] MEDEN T ([facility]) Systolic blood pressure 124 mm[Hg] 124 mm[Hg] M EDENT ([facility]) Diastolic blood pressure 81 mm[Hg] 81 mm[Hg] MEDENT ([facility]) Heart rate 84 /min 84 /min [facility] ([facility]) Body mass index (BMI) [Ratio] 25.9 kg/m2 25.9 k g/m2 MEDENT ([facility]) Body weight 66.226 kg 66.226 kg [facility] ([facility]) Body temperature 97.9 [degF] 97.9 [degF] MEDENT ([facility]) Diastolic blood pressure 77 mm[Hg] 77 mm[Hg] AALIYAH ([facility]) Body height 65 [in_i] 65 [in_i] AALIYAH ([facility]) Body mass index (BMI) [Ratio] 24.5 kg/m2 24.5 k g/m2 AALIYAH ([facility]) Systolic blood pressure 124 mm[Hg] 124 mm[Hg] A [facility] ([facility]) Body weight 2352 [oz_av] 2352 [oz_av] AALIYAH ([facility]) Body mass index (BMI) [Ratio] 24.5 kg/m2 24.5 k g/m2 AALIYAH ([facility]) Diastolic blood pressure 77 mm[Hg] 77 mm[Hg] AALIYAH ([facility]) Body height 65 [in_i] 65 [in_i] AALIYAH ([facility]) Systolic blood pressure 124 mm[Hg] 124 mm[Hg] A [facility] ([facility]) Body weight 2352 [oz_av] 2352 [oz_av] AALIYAH ([facility]) Diastolic blood pressure 77 mm[Hg] 77 mm[Hg] AALIYAH ([facility]) Body height 65 [in_i] 65 [in_i] AALIYAH ([facility]) Body mass index (BMI) [Ratio] 24.5 kg/m2 24.5 k g/m2 AALIYAH ([facility]) Systolic blood pressure 124 mm[Hg] 124 mm[Hg] A [facility] ([facility]) Body weight 2352 [oz_av] 2352 [oz_av] AALIYAH ([facility]) Diastolic blood pressure 77 mm[Hg] 77 mm[Hg] AALIYAH ([facility]) Body height 65 [in_i] 65 [in_i] AALIYAH ([facility]) Body mass index (BMI) [Ratio] 24.5 kg/m2 24.5 k g/m2 AALIYAH ([facility]) Systolic blood pressure 124 mm[Hg] 124 mm[Hg] A SHAHEENA ([facility]) Body weight 2352 [oz_av] 2352 [oz_av] AALIYAH ([facility]) Diastolic blood pressure 77 mm[Hg] 77 mm[Hg] AALIYAH ([facility]) Body height 65 [in_i] 65 [in_i] AALIYAH ([facility]) Body mass index (BMI) [Ratio] 24.5 kg/m2 24.5 k g/m2 AALIYAH ([facility]) Systolic blood pressure 124 mm[Hg] 124 mm[Hg] A ELIZ ([facility]) Body weight 2352 [oz_av] 2352 [oz_av] AALIYAH ([facility]) Diastolic blood pressure 77 mm[Hg] 77 mm[Hg] AALIYAH ([facility]) Body height 65 [in_i] 65 [in_i] AALIYAH ([facility]) Body mass index (BMI) [Ratio] 24.5 kg/m2 24.5 k g/m2 AALIYAH ([facility]) Systolic blood pressure 124 mm[Hg] 124 mm[Hg] A SHAHEENA ([facility]) Body weight 2352 [oz_av] 2352 [oz_av] AALIYAH ([facility]) Heart rate 66 /min 66 /min MEDENT ([facility], [facility]) Respiratory rate 18 /min 18 /min MEDENT ( [facility], [facility]) Oxygen saturation in Arterial blood by Pulse oximetry 98 % 98 % MEDENT ([facility], [facility]) Body temperature 98.2 [degF] 98.2 [degF] MEDENT ([facility], [facility]) Body weight 150.00 [lb_av] 150.00 [lb_av] MEDEN T ([facility], [facility]) Body height 63 [in_i] 63 [in_i] MEDENT ([facility], [facility]) 5'3" Body mass index (BMI) [Ratio] 26.6 kg/m2 26.6 k g/m2 MEDENT ([facility], [facility]) Body mass index (BMI) [Ratio] 26.6 kg/m2 26.6 k g/m2 MEDENT ([facility], [facility]) Systolic blood pressure 125 mm[Hg] 125 mm[Hg] M EDENT ([facility], [facility]) Diastolic blood pressure 65 mm[Hg] 65 mm[Hg] MEDENT ([facility], [facility]) Heart rate 57 /min 57 /min MEDENT ([facility], [facility]) Respiratory rate 20 /min 20 /min MEDENT ( [facility], [facility]) Oxygen saturation in Arterial blood by Pulse oximetry 98 % 98 % [facility], [facility]) Body temperature 97.8 [degF] 97.8 [degF] MEDENT ([facility], [facility]) Body weight 150.00 [lb_av] 150.00 [lb_av] MEDEN T ([facility], [facility]) Body height 63 [in_i] 63 [in_i] MEDENT ([facility], [facility]) 5'3" Diastolic blood pressure 85 mm[Hg] 85 mm[Hg] AALIYAH ([facility]) Body height 65 [in_i] 65 [in_i] MCRAE ([facility]) Body mass index (BMI) [Ratio] 26.1 kg/m2 26.1 k g/m2 AALIYAH ([facility]) Systolic blood pressure 117 mm[Hg] 117 mm[Hg] A [facility] ([facility]) Body weight 2512 [oz_av] 2512 [oz_av] AALIYAH ([facility]) Diastolic blood pressure 85 mm[Hg] 85 mm[Hg] AALIYAH ([facility]) Body height 65 [in_i] 65 [in_i] AALIYAH ([facility]) Body mass index (BMI) [Ratio] 26.1 kg/m2 26.1 k g/m2 AALIYAH ([facility]) Systolic blood pressure 117 mm[Hg] 117 mm[Hg] A [facility] ([facility]) Body weight 2512 [oz_av] 2512 [oz_av] AALIYAH ([facility]) Diastolic blood pressure 85 mm[Hg] 85 mm[Hg] AALIYAH ([facility]) Body height 65 [in_i] 65 [in_i] AALIYAH ([facility]) Body mass index (BMI) [Ratio] 26.1 kg/m2 26.1 k g/m2 AALIYAH ([facility]) Systolic blood pressure 117 mm[Hg] 117 mm[Hg] [facility] Body weight 2512 [oz_av] 2512 [oz_av] AALIYAH ([facility]) Diastolic blood pressure 85 mm[Hg] 85 mm[Hg] AALIYAH ([facility]) Body height 65 [in_i] 65 [in_i] AALIYAH ([facility]) Body mass index (BMI) [Ratio] 26.1 kg/m2 26.1 k g/m2 AALIYAH ([facility]) Systolic blood pressure 117 mm[Hg] 117 mm[Hg] [facility] Body weight 2512 [oz_av] 2512 [oz_av] AALIYAH ([facility]) Diastolic blood pressure 85 mm[Hg] 85 mm[Hg] AALIYAH ([facility]) Body height 65 [in_i] 65 [in_i] AALIYAH ([facility]) Body mass index (BMI) [Ratio] 26.1 kg/m2 26.1 k g/m2 AALIYAH ([facility]) Systolic blood pressure 117 mm[Hg] 117 mm[Hg] A THENA ([facility]) Body weight 2512 [oz_av] 2512 [oz_av] AALIYAH ([facility]) Diastolic blood pressure 85 mm[Hg] 85 mm[Hg] AALIYAH ([facility]) Body height 65 [in_i] 65 [in_i] AALIYAH ([facility]) Body mass index (BMI) [Ratio] 26.1 kg/m2 26.1 k g/m2 AALIYAH ([facility]) Systolic blood pressure 117 mm[Hg] 117 mm[Hg] A [facility] ([facility]) Body weight 2512 [oz_av] 2512 [oz_av] AALIYAH ([facility]) Diastolic blood pressure 85 mm[Hg] 85 mm[Hg] AALIYAH ([facility]) Body height 65 [in_i] 65 [in_i] AALIYAH ([facility]) Body mass index (BMI) [Ratio] 26.1 kg/m2 26.1 k g/m2 AALIYAH ([facility]) Systolic blood pressure 117 mm[Hg] 117 mm[Hg] A ELIZ ([facility]) Body weight 2512 [oz_av] 2512 [oz_av] AALIYAH ([facility]) Diastolic blood pressure 85 mm[Hg] 85 mm[Hg] AALIYAH ([facility]) Body height 65 [in_i] 65 [in_i] AALIYAH ([facility]) Body mass index (BMI) [Ratio] 26.1 kg/m2 26.1 k g/m2 AALIYAH ([facility]) Systolic blood pressure 117 mm[Hg] 117 mm[Hg] A ELIZ ([facility]) Body weight 2512 [oz_av] 2512 [oz_av] AALIYAH ([facility]) Diastolic blood pressure 81 mm[Hg] 81 mm[Hg] MEDENT ([facility], [facility]) Systolic blood pressure 113 mm[Hg] 113 mm[Hg] M EDENT ([facility], [facility]) Heart rate 78 /min 78 /min MEDENT ([facility], [facility]) Oxygen saturation in Arterial blood by Pulse oximetry 98 % 98 % MEDENT ([facility], [facility]) Body temperature 98.6 [degF] 98.6 [degF] MEDENT ([facility], [facility]) Body weight 152.00 [lb_av] 152.00 [lb_av] MEDEN T ([facility], [facility]) Body height 63 [in_i] 63 [in_i] MEDENT ([facility], [facility]) 5'3" Body mass index (BMI) [Ratio] 26.9 kg/m2 26.9 k g/m2 MEDENT ([facility], [facility]) Patient Treatment Plan of Care Planned Activity Planned Date Details Description Data Source (s) B-12 Plus 1 tab by mouth daily 12/04/2020 12:00:00 AM EDT AALIYAH ([facility]) valacyclovir 1000 MG Oral Tablet AALIYAH ([facility]) Sulfamethoxazole 800 MG / Trimethoprim 160 MG Oral Tablet AALIYAH ([facility]) Sucralfate 1000 MG Oral Tablet AALIYAH ([facility]) Prednisone 20 MG Oral Tablet AALIYAH ([facility]) Prednisone 10 MG Oral Tablet AALIYAH ([facility]) Phenazopyridine hydrochloride 200 MG Oral Tablet AALIYAH ([facility]) Phenazopyridine hydrochloride 100 MG Oral Tablet AALIYAH ([facility]) Oseltamivir 75 MG Oral Capsule AALIYAH ([facility]) Ondansetron 8 MG Disintegrating Oral Tablet AALIYAH ([facility]) Ondansetron 4 MG Disintegrating Oral Tablet AALIYAH ([facility]) Omeprazole 20 MG Delayed Release Oral Capsule AALIYAH ([facility]) NITROFURANTOIN, MACROCRYSTALS 25 MG / Ni trofurantoin, Monohydrate 75 MG Oral Capsule AALIYAH ([facility]) Metronidazole 500 MG Oral Tablet AALIYAH ([facility]) Acetaminophen 325 MG / Hydrocodone Bitartrate 5 MG Oral Tablet AALIYAH ([facility]) gabapentin 300 MG Oral Capsule AALIYAH ([facility]) ferrous gluconate 324 MG Oral Tablet AALIYAH ([facility]) Docusate Sodium 100 MG Oral Capsule [DOK] AALIYAH ([facility]) Cephalexin 500 MG Oral Capsule AALIYAH ([facility]) cefdinir 300 MG Oral Capsule AALIYAH ([facility]) benzonatate 200 MG Oral Capsule AALIYAH ([facility]) Azithromycin 250 MG Oral Tablet AALIYAH ([facility]) fluticasone furoate 0.1 MG/ACTUAT Dry Powder Inhaler AALIYAH ([facility]) Amoxicillin 875 MG / Clavulanate 125 MG Oral Tablet AALIYAH ([facility]) valacyclovir 1000 MG Oral Tablet AALIYAH ([facility]) Sulfamethoxazole 800 MG / Trimethoprim 160 MG Oral Tablet AALIYAH ([facility]) Sucralfate 1000 MG Oral Tablet AALIYAH ([facility]) Prednisone 10 MG Oral Tablet AALIYAH ([facility]) Phenazopyridine hydrochloride 200 MG Oral Tablet AALIYAH ([facility]) Phenazopyridine hydrochloride 100 MG Oral Tablet AALIYAH ([facility]) Oseltamivir 75 MG Oral Capsule AALIYAH ([facility]) Ondansetron 8 MG Disintegrating Oral Tablet AALIYAH ([facility]) Ondansetron 4 MG Disintegrating Oral Tablet AALIYAH ([facility]) Omeprazole 20 MG Delayed Release Oral Capsule AALIYAH ([facility]) NITROFURANTOIN, MACROCRYSTALS 25 MG / Ni trofurantoin, Monohydrate 75 MG Oral Capsule AALIYAH ([facility]) Metronidazole 500 MG Oral Tablet AALIYAH ([facility]) Acetaminophen 325 MG / Hydrocodone Bitartrate 5 MG Oral Tablet AALIYAH ([facility]) gabapentin 300 MG Oral Capsule AALIYAH ([facility]) ferrous gluconate 324 MG Oral Tablet AALIYAH ([facility]) Docusate Sodium 100 MG Oral Capsule [DOK] AALIYAH ([facility]) Cephalexin 500 MG Oral Capsule AALIYAH ([facility]) cefdinir 300 MG Oral Capsule AALIYAH ([facility]) Azithromycin 250 MG Oral Tablet AALIYAH ([facility]) valacyclovir 1000 MG Oral Tablet AALIYAH ([facility]) Sulfamethoxazole 800 MG / Trimethoprim 160 MG Oral Tablet AALIYAH ([facility]) Sucralfate 1000 MG Oral Tablet AALIYAH ([facility]) Prednisone 10 MG Oral Tablet AALIYAH ([facility]) Phenazopyridine hydrochloride 200 MG Oral Tablet AALIYAH ([facility]) Phenazopyridine hydrochloride 100 MG Oral Tablet AALIYAH ([facility]) Oseltamivir 75 MG Oral Capsule AALIYAH ([facility]) Ondansetron 8 MG Disintegrating Oral Tablet AALIYAH ([facility]) Ondansetron 4 MG Disintegrating Oral Tablet AALIYAH ([facility]) Omeprazole 20 MG Delayed Release Oral Capsule AALIYAH ([facility]) NITROFURANTOIN, MACROCRYSTALS 25 MG / Ni trofurantoin, Monohydrate 75 MG Oral Capsule AALIYAH ([facility]) Metronidazole 500 MG Oral Tablet AALIYAH ([facility]) Acetaminophen 325 MG / Hydrocodone Bitartrate 5 MG Oral Tablet AALIYAH ([facility]) gabapentin 300 MG Oral Capsule AALIYAH ([facility]) ferrous gluconate 324 MG Oral Tablet AALIYAH ([facility]) Docusate Sodium 100 MG Oral Capsule [DOK] AALIYAH ([facility]) Cephalexin 500 MG Oral Capsule AALIYAH ([facility]) cefdinir 300 MG Oral Capsule AALIYAH ([facility]) Azithromycin 250 MG Oral Tablet AALIYAH ([facility]) valacyclovir 1000 MG Oral Tablet AALIYAH ([facility]) Sulfamethoxazole 800 MG / Trimethoprim 160 MG Oral Tablet AALIYAH ([facility]) Sucralfate 1000 MG Oral Tablet AALIYAH ([facility]) Prednisone 10 MG Oral Tablet AALIYAH ([facility]) Phenazopyridine hydrochloride 200 MG Oral Tablet AALIYAH ([facility]) Phenazopyridine hydrochloride 100 MG Oral Tablet AALIYAH ([facility]) Oseltamivir 75 MG Oral Capsule AALIYAH ([facility]) Ondansetron 8 MG Disintegrating Oral Tablet AALIYAH ([facility]) Ondansetron 4 MG Disintegrating Oral Tablet AALIYAH ([facility]) Omeprazole 20 MG Delayed Release Oral Capsule AALIYAH ([facility]) NITROFURANTOIN, MACROCRYSTALS 25 MG / Ni trofurantoin, Monohydrate 75 MG Oral Capsule AALIYAH ([facility]) Metronidazole 500 MG Oral Tablet AALIYAH ([facility]) Acetaminophen 325 MG / Hydrocodone Bitartrate 5 MG Oral Tablet AALIYAH ([facility]) gabapentin 300 MG Oral Capsule AALIYAH ([facility]) ferrous gluconate 324 MG Oral Tablet AALIYAH ([facility]) Docusate Sodium 100 MG Oral Capsule [DOK] AALIYAH ([facility]) Cephalexin 500 MG Oral Capsule AALIYAH ([facility]) cefdinir 300 MG Oral Capsule AALIYAH ([facility]) Azithromycin 250 MG Oral Tablet AALIYAH ([facility]) valacyclovir 1000 MG Oral Tablet AALIYAH ([facility]) Sulfamethoxazole 800 MG / Trimethoprim 160 MG Oral Tablet AALIYAH ([facility]) Sucralfate 1000 MG Oral Tablet AALIYAH ([facility]) Prednisone 20 MG Oral Tablet AALIYAH ([facility]) Prednisone 10 MG Oral Tablet AALIYAH ([facility]) Phenazopyridine hydrochloride 200 MG Oral Tablet AALIYAH ([facility]) Phenazopyridine hydrochloride 100 MG Oral Tablet AALIYAH ([facility]) Oseltamivir 75 MG Oral Capsule AALIYAH ([facility]) Ondansetron 8 MG Disintegrating Oral Tablet AALIYAH ([facility]) Ondansetron 4 MG Disintegrating Oral Tablet AALIYAH ([facility]) Omeprazole 20 MG Delayed Release Oral Capsule AALIYAH ([facility]) NITROFURANTOIN, MACROCRYSTALS 25 MG / Ni trofurantoin, Monohydrate 75 MG Oral Capsule AALIYAH ([facility]) Metronidazole 500 MG Oral Tablet AALIYAH ([facility]) Acetaminophen 325 MG / Hydrocodone Bitartrate 5 MG Oral Tablet AALIYAH ([facility]) gabapentin 300 MG Oral Capsule AALIYAH ([facility]) ferrous gluconate 324 MG Oral Tablet AALIYAH ([facility]) Docusate Sodium 100 MG Oral Capsule [DOK] AALIYAH ([facility]) Cephalexin 500 MG Oral Capsule AALIYAH ([facility]) cefdinir 300 MG Oral Capsule AALIYAH ([facility]) benzonatate 200 MG Oral Capsule AALIYAH ([facility]) Azithromycin 250 MG Oral Tablet AALIYAH ([facility]) Amoxicillin 875 MG / Clavulanate 125 MG Oral Tablet AALIYAH ([facility]) valacyclovir 1000 MG Oral Tablet AALIYAH ([facility]) Sulfamethoxazole 800 MG / Trimethoprim 160 MG Oral Tablet AALIYAH ([facility]) Prednisone 20 MG Oral Tablet AALIYAH ([facility]) Prednisone 10 MG Oral Tablet AALIYAH ([facility]) Phenazopyridine hydrochloride 200 MG Oral Tablet AALIYAH ([facility]) Oseltamivir 75 MG Oral Capsule AALIYAH ([facility]) Ondansetron 4 MG Disintegrating Oral Tablet AALIYAH ([facility]) Omeprazole 20 MG Delayed Release Oral Capsule AALIYAH ([facility]) NITROFURANTOIN, MACROCRYSTALS 25 MG / Ni trofurantoin, Monohydrate 75 MG Oral Capsule AALIYAH ([facility]) Metronidazole 500 MG Oral Tablet AALIYAH ([facility]) gabapentin 300 MG Oral Capsule AALIYAH ([facility]) cefdinir 300 MG Oral Capsule AALIYAH ([facility]) benzonatate 200 MG Oral Capsule AALIYAH ([facility]) Azithromycin 250 MG Oral Tablet AALIYAH ([facility]) Amoxicillin 875 MG / Clavulanate 125 MG Oral Tablet AALIYAH ([facility]) valacyclovir 1000 MG Oral Tablet AALIYAH ([facility]) Sulfamethoxazole 800 MG / Trimethoprim 160 MG Oral Tablet AALIYAH ([facility]) Prednisone 10 MG Oral Tablet AALIYAH ([facility]) Phenazopyridine hydrochloride 200 MG Oral Tablet AALIYAH ([facility]) NITROFURANTOIN, MACROCRYSTALS 25 MG / Ni trofurantoin, Monohydrate 75 MG Oral Capsule AALIYAH ([facility]) Metronidazole 500 MG Oral Tablet AALIYAH ([facility]) gabapentin 300 MG Oral Capsule AALIYAH ([facility]) cefdinir 300 MG Oral Capsule AALIYAH ([facility]) benzonatate 200 MG Oral Capsule AALIYAH ([facility]) Azithromycin 250 MG Oral Tablet AALIYAH ([facility]) Amoxicillin 875 MG / Clavulanate 125 MG Oral Tablet AALIYAH ([facility]) valacyclovir 1000 MG Oral Tablet AALIYAH ([facility]) Sulfamethoxazole 800 MG / Trimethoprim 160 MG Oral Tablet AALIYAH ([facility]) Prednisone 10 MG Oral Tablet AALIYAH ([facility]) Phenazopyridine hydrochloride 200 MG Oral Tablet AALIYAH ([facility]) NITROFURANTOIN, MACROCRYSTALS 25 MG / Ni trofurantoin, Monohydrate 75 MG Oral Capsule AALIYAH ([facility]) Metronidazole 500 MG Oral Tablet AALIYAH ([facility]) gabapentin 300 MG Oral Capsule AALIYAH ([facility]) cefdinir 300 MG Oral Capsule AALIYAH ([facility]) benzonatate 200 MG Oral Capsule AALIYAH ([facility]) Azithromycin 250 MG Oral Tablet AALIYAH ([facility]) Amoxicillin 875 MG / Clavulanate 125 MG Oral Tablet AALIYAH ([facility])
[2021-05-21] MEDS ORDERED: propofoL 200 MG/20 ML VIAL As Ordered ONE (14:25)
[2021-05-21] MEDS ORDERED: LIDOCAINE 2% 100MG/5ML SDV (FOR ANES.) As Ordered ONE (14:25)
--- NOTE | 2021-05-21 14:53 | ROOR ---
Patient Name: Akilah Cuellar Procedure Date: 05/21/2021 2:40 PM Date of : 1985 Age: 35 Room: [facility], [facility] Gender: Female Note Status: Finalized Procedure: Upper Endoscopy + Biopsies Indications: Epigastric abdominal pain, Heartburn Providers: Nuno Goode MD Referring MD: ZACH Landis Requesting Provider: Medicines: Monitored Anesthesia Care Complications: No immediate complications. Procedure: Pre-Anesthesia Assessment: - The heart rate, respiratory rate, oxygen saturations, blood pressure, adequacy of pulmonary ventilation, and response to care were monitored throughout the procedure. The Endoscope was introduced through the mouth, and advanced to the second part of duodenum. The upper GI endoscopy was accomplished without difficulty. The patient tolerated the procedure well. Findings: The Z-line was variable and was found 35 cm from the incisors. Multiple biopsies were obtained with cold forceps for evaluation to rule out Thomas's Esophagus randomly at the gastroesophageal junction. A small hiatal hernia was present. Localized mild inflammation characterized by congestion (edema), erosions and erythema was found on the greater curvature of the stomach. Biopsies were taken with a cold forceps for Helicobacter pylori testing. The exam of the duodenum was otherwise normal. Impression: - Z-line variable, 35 cm from the incisors. - Small hiatal hernia. - Mucosal changes suspicious for gastritis. Biopsied. - Multiple biopsies were obtained at the gastroesophageal junction. - The examination was otherwise normal. Recommendation: - Patient has a contact number available for emergencies. The signs and symptoms of potential delayed complications were discussed with the patient. Return to normal activities tomorrow. Written discharge instructions were provided to the patient. - High fiber diet. - Discharge patient to home. - Follow an antireflux regimen. - Continue present medications. - Await pathology results. - Telephone GI clinic for pathology results in 1 week. - Return to referring physician. - The findings and recommendations were discussed with the patient. Procedure Code(s): --- Professional --- 67815, Esophagogastroduodenoscopy, flexible, transoral; with biopsy, single or multiple Diagnosis Code(s): --- Professional --- K22.8, Other specified diseases of esophagus K44.9, Diaphragmatic hernia without obstruction or gangrene K31.89, Other diseases of stomach and duodenum R10.13, Epigastric pain R12, Heartburn CPT copyright 2019 [employer]. All rights reserved. The codes documented in this report are preliminary and upon environmental sampler review may be revised to meet current compliance requirements. Nuno Goode MD Nuno Goode MD 05/21/2021 2:52:50 PM Electronically signed by Nuno Goode MD Number of Addenda: 0 Note Initiated On: 05/21/2021 2:40 PM Estimated Blood Loss: Estimated blood loss: none.
--- NOTE | 2021-05-21 15:16 | ROOR ---
Patient Name: Akilah Cuellar Procedure Date: 05/21/2021 2:41 PM Date of : 1985 Age: 35 Room: [facility] Gender: Female Note Status: Finalized Procedure: Total Colonoscopy to Cecum + ileoscopy Indications: Rectal bleeding, Change in bowel habits Providers: Nuno Goode MD Referring MD: ZACH Lnadis Requesting Provider: Medicines: Monitored Anesthesia Care Complications: No immediate complications. Procedure: Pre-Anesthesia Assessment: - The heart rate, respiratory rate, oxygen saturations, blood pressure, adequacy of pulmonary ventilation, and response to care were monitored throughout the procedure. The Colonoscope was introduced through the anus and advanced to the terminal ileum, with identification of the appendiceal orifice and IC valve. The colonoscopy was performed without difficulty. The patient tolerated the procedure well. The quality of the bowel preparation was good. Findings: The perianal and digital rectal examinations were normal. Non-bleeding internal hemorrhoids were found during retroflexion. The hemorrhoids were small and Grade I (internal hemorrhoids that do not prolapse). No other significant abnormalities were identified in a careful examination of the remainder of the colon. The terminal ileum appeared normal. Impression: - Non-bleeding internal hemorrhoids. - The examined portion of the ileum was normal. - No specimens collected. - The exam was otherwise normal to the cecum. Recommendation: - Patient has a contact number available for emergencies. The signs and symptoms of potential delayed complications were discussed with the patient. Return to normal activities tomorrow. Written discharge instructions were provided to the patient. - High fiber diet. - Discharge patient to home. - Continue present medications. - Repeat colonoscopy in 10 years for screening purposes. - Return to referring physician. - The findings and recommendations were discussed with the patient. Procedure Code(s): --- Professional --- 96632, Colonoscopy, flexible; diagnostic, including collection of specimen(s) by brushing or washing, when performed (separate procedure) Diagnosis Code(s): --- Professional --- K64.0, First degree hemorrhoids K62.5, Hemorrhage of anus and rectum R19.4, Change in bowel habit CPT copyright 2019 [employer]. All rights reserved. The codes documented in this report are preliminary and upon bank credit card collection clerk review may be revised to meet current compliance requirements. Nuno Goode MD Nuno Goode MD 05/21/2021 3:16:05 PM Electronically signed by Nuno Goode MD Number of Addenda: 0 Note Initiated On: 05/21/2021 2:41 PM Estimated Blood Loss: Estimated blood loss: none.
[2021-05-21 15:30] VITALS: BP 136/77
== END 2021-05-21 16:04 | disposition home or self-care (01) ==
LOC: M OPP 12:14
PROVIDERS: ATTEND Internal Medicine Gastroenterology
DX: K62.5 Hemorrhage of anus and rectum (principal); K64.0 First degree hemorrhoids; R19.4 Change in bowel habit; K22.89 Other specified disease of esophagus; K44.9 Diaphragmatic hernia without obstruction or gangrene; K31.89 Other diseases of stomach and duodenum; R10.13 Epigastric pain; Z79.899 Other long term (current) drug therapy

== ENCOUNTER → 2021-06-19 | Outpatient (CLI) | payer OTHER ==
[~2021-06-19] MED LIST changes: -NS 1,000 ML IV ONE
--- NOTE | 2021-06-19 18:51 | REP ---
INDICATION: ABN LABS, ABD PAIN/ MRCP. COMPARISON: CT 08/21/2020. TECHNIQUE: Multiple sequences, including heavily T2 weighted sequences are obtained in the axial and coronal planes. 3D MIP reconstruction images are performed. FINDINGS: There is no intrahepatic or extrahepatic biliary dilatation. There is no gross biliary stricture and no focal dilatation. Common bile duct has a maximum diameter of approximately 5 mm. Pancreatic duct is normal in caliber. Gallbladder is mildly distended with no wall thickening or edema. No internal filling defect or gallstone is seen. There is no evidence of choledocholithiasis. There is hepatomegaly. There is no MR evidence for fatty infiltration. The spleen, adrenals, pancreas and kidneys are grossly unremarkable. There is no evidence of pancreas divisum. I see no adenopathy or free fluid in the abdomen. IMPRESSION: Mild hepatomegaly. No other significant finding. <Electronically signed by Shahab Fraser > 06/19/21 [id number]
== END ==
LOC: M RAD 17:12
PROVIDERS: ATTEND Internal Medicine Gastroenterology
DX: R10.9 Unspecified abdominal pain (principal); R74.8 Abnormal levels of other serum enzymes; R16.0 Hepatomegaly, not elsewhere classified

== ENCOUNTER → 2021-09-18 | Outpatient (REF) | payer OTHER ==
[~2021-09-18] MED LIST changes: +DICY10CA13; +NORT10CA2; -OMEP-221 PO; +OMEP40CA5 PO
== END ==
LOC: M SFHCDERM 14:44
PROVIDERS: ATTEND Nurse Practitioner Family
DX: D22.39 Melanocytic nevi of other parts of face (principal)

== ENCOUNTER → 2021-09-29 | Outpatient (CLI) | payer OTHER | LOC: M WUC 15:10 | PROVIDERS: ATTEND Physician Assistant | DX: R06.02 Shortness of breath (principal); R07.9 Chest pain, unspecified ==

== ENCOUNTER → 2021-09-29 | Outpatient (REF) | payer OTHER | LOC: M WUC 19:55 | PROVIDERS: ATTEND Physician Assistant | DX: R50.9 Fever, unspecified (principal) ==

== ENCOUNTER 2022-03-30 18:47 | Emergency (ER) | payer OTHER ==
[~2022-03-30] VITALS: Ht 160 cm; Wt 58.2 kg
[~2022-03-30 18:47] MED LIST changes: +ALBU2.5V10 INH; -ALBU83IN INH
[2022-03-30 19:45] LABS: BASO # 0.1 10^3/uL (0.0-0.2); BASO % 0.8 % (0.0-1.0); EOS # 0.2 10^3/uL (0.0-0.5); EOS % 2.4 % (0.0-3.0); HEMATOCRIT 37.8 % (36.0-47.0); HEMOGLOBIN 11.6 g/dl (12.0-15.5); LYMPH # 3.3 10^3/uL (1.5-5.0); LYMPH % 41.4 % (24.0-44.0); MEAN CORPUSCULAR HGB CONC 30.7 g/dl (32.0-36.5); MEAN CORPUSCULAR VOLUME 81.5 fl (80.0-96.0); MONO # 0.4 10^3/uL (0.0-0.8); MONO % 5.3 % (2.0-8.0); NEUTROPHILS # 3.9 10^3/uL (1.5-8.5); NEUTROPHILS % 49.1 % (36.0-66.0); PLATELET COUNT, AUTOMATED 402 10^3/uL (150-450); RED BLOOD COUNT 4.64 10^6/uL (4.00-5.40); WHITE BLOOD COUNT 7.9 10^3/uL (4.0-10.0)
[2022-03-30 20:46] LABS: ALT/SGPT 26 U/L (12-78); BILIRUBIN,DIRECT 0.1 MG/DL (0.0-0.2); BILIRUBIN,TOTAL 0.3 MG/DL (0.2-1.0); BLOOD UREA NITROGEN 9 MG/DL (7-18); CALCIUM LEVEL 9.3 MG/DL (8.5-10.1); CARBON DIOXIDE LEVEL 29 MEQ/L (21-32); CHLORIDE LEVEL 103 MEQ/L (98-107); CREATININE FOR GFR 0.64 MG/DL (0.55-1.30); GLOMERULAR FILTRATION RATE > 60.0 (>60); GLUCOSE, FASTING 89 MG/DL (70-100); LIPASE 124 U/L (73-393); POTASSIUM SERUM 3.7 MEQ/L (3.5-5.1); SODIUM LEVEL 135 MEQ/L (136-145); TOTAL PROTEIN 7.4 GM/DL (6.4-8.2)
[2022-03-30 21:15] LABS: HCG, SERUM QUALITATIVE NEGATIVE (NEGATIVE)
[2022-03-31] MEDS ORDERED: KETOROLAC TROMETHAMINE 10 MG TAB PO ONE (00:35)
[2022-03-31] MEDS ORDERED: ONDANSETRON 4MG ORAL DISINTEGRATING TAB PO ONE (00:35)
[2022-03-31] MEDS ORDERED: GI COCKTAIL 50ML BTL(HYOSCYAMINE/MAALOX/LIDOCAINE VISCOUS)(1:3:1) PO ONE (01:00)
[2022-03-31] MEDS ORDERED: SUCR1SS PO (02:16)
[2022-03-31 02:18] VITALS: BP 135/75
== END 2022-03-31 02:32 | disposition home or self-care (01) ==
LOC: M ED 18:47
DX: R10.13 Epigastric pain (principal); K58.9 Irritable bowel syndrome, unspecified; F17.200 Nicotine dependence, unspecified, uncomplicated; F10.10 Alcohol abuse, uncomplicated; Z79.51 Long term (current) use of inhaled steroids; Z79.899 Other long term (current) drug therapy; Z79.891 Long term (current) use of opiate analgesic

== ENCOUNTER → 2022-09-08 | Outpatient (CLI) | payer OTHER ==
[~2022-09-08] MED LIST changes: +SUCR1SS PO
[2022-09-08 10:33] LABS: CHOLESTEROL RISK RATIO 2.97 (<5); HDL CHOLESTEROL 54.2 MG/DL (>40)
[2022-09-08 11:27] LABS: THYROID STIMULATING HORMONE 2.332 uIU/ML (0.55-4.78)
== END ==
LOC: M WUC 08:03
PROVIDERS: ATTEND Physician Assistant
DX: E06.5 Other chronic thyroiditis (principal)

== ENCOUNTER → 2023-10-20 | Outpatient (REF) | payer OTHER ==
[~2023-10-20] MED LIST changes: +DICY-61; -DICY10CA13; -GABA-283 PO; +GABA-284 PO; +METH-1164 PO
== END ==
LOC: M LAB REF 16:20
PROVIDERS: ATTEND Nurse Practitioner Family
DX: R10.30 Lower abdominal pain, unspecified (principal)

== ENCOUNTER → 2023-12-22 | Outpatient (CLI) | payer OTHER ==
[~2023-12-22] MED LIST changes: +ONDA-282 PO; +ONDA-284 PO; -ONDA4TAB6 PO; -ONDA8TAB8 PO
== END ==
LOC: M WHC 10:12
PROVIDERS: ATTEND Nurse Practitioner Family
DX: R10.2 Pelvic and perineal pain (principal)

== ENCOUNTER → 2024-01-14 | Outpatient (REF) | payer OTHER ==
[2024-01-14 13:41] LABS: CHOLESTEROL RISK RATIO 3.05 (<5); HDL CHOLESTEROL 58.5 MG/DL (>40); LDL CHOLESTEROL 102.9 MG/DL (<100); NON-HDL-C 120.5 MG/DL
== END ==
LOC: M LAB REF 12:11
PROVIDERS: ATTEND Physician Assistant
DX: K75.81 Nonalcoholic steatohepatitis (NASH) (principal)

== ENCOUNTER → 2024-02-23 | Outpatient (CLI) | payer OTHER | LOC: M RAD 09:09 | PROVIDERS: ATTEND Physician Assistant | DX: R10.2 Pelvic and perineal pain (principal); N83.201 Unspecified ovarian cyst, right side; Q51.28 Other and unspecified doubling of uterus ==

== ENCOUNTER → 2024-03-27 | Outpatient (REF) | payer OTHER | LOC: M LAB REF 09:47 | PROVIDERS: ATTEND Student in an Organized Health Care Education/Training Program | DX: J06.9 Acute upper respiratory infection, unspecified (principal) ==

== ENCOUNTER → 2024-04-26 | Outpatient (CLI) | payer OTHER ==
[~2024-04-26] MED LIST changes: +IBUP-1022 PO
[2024-04-26 18:37] LABS: HEMATOCRIT 37.1 % (36.0-47.0); MEAN CORPUSCULAR HEMOGLOBIN 28.9 pg (27.0-33.0); MEAN CORPUSCULAR HGB CONC 32.3 g/dl (32.0-36.5); MEAN CORPUSCULAR VOLUME 89.4 fl (80.0-96.0); PLATELET COUNT, AUTOMATED 347 10^3/uL (150-450); RED BLOOD COUNT 4.15 10^6/uL (4.00-5.40); WHITE BLOOD COUNT 7.2 10^3/uL (4.0-10.0)
== END ==
LOC: M WUC 13:03
PROVIDERS: ATTEND Specialist
DX: N92.6 Irregular menstruation, unspecified (principal)

== ENCOUNTER 2024-04-28 14:00 | Observation (INO) | payer OTHER ==
[~2024-04-28] VITALS: Ht 160 cm; Wt 60.7 kg
[~2024-04-28 14:00] MED LIST changes: -IBUP-1022 PO; +MORPHINE 2 MG/ML 1ML VIAL IV PRN; +fentaNYL 100 MCG/2 ML INJECTION IV PRN
[2024-04-28 14:38] LABS: HEMATOCRIT 37.9 % (36.0-47.0); HEMOGLOBIN 12.7 g/dl (12.0-15.5); MEAN CORPUSCULAR HEMOGLOBIN 29.8 pg (27.0-33.0); MEAN CORPUSCULAR HGB CONC 33.5 g/dl (32.0-36.5); PLATELET COUNT, AUTOMATED 336 10^3/uL (150-450); RED BLOOD COUNT 4.26 10^6/uL (4.00-5.40); WHITE BLOOD COUNT 7.9 10^3/uL (4.0-10.0)
[2024-04-28] MEDS ORDERED: ROCURONIUM BROMIDE 50MG/5ML VIAL As Ordered ONE (15:43)
[2024-04-28] MEDS ORDERED: ONDANSETRON 4MG 2ML VIAL As Ordered ONE (15:43)
[2024-04-28] MEDS ORDERED: LIDOCAINE 2% 100MG/5ML SDV (FOR ANES.) As Ordered ONE (15:43)
[2024-04-28] MEDS ORDERED: propofoL 200 MG/20 ML VIAL As Ordered ONE (15:43)
[2024-04-28] MEDS ORDERED: fentaNYL 250 MCG/5 ML INJECTION As Ordered ONE (15:44)
[2024-04-28] MEDS ORDERED: MIDAZOLAM INJ 2MG/2ML VIAL As Ordered ONE (15:44)
[2024-04-28] MEDS ORDERED: dexmedeTOMIDine (4MCG/ML)200MCG/50ML BTL (PRECEDEX) As Ordered ONE (15:45)
[2024-04-28] MEDS: ceFAZolin SOD 2 GM in IV 1 EA IV ONE (16:59)
[2024-04-28] MEDS: SCOPOLAMINE 1MG TRANSDERMAL PATCH As Ordered ONE (17:00)
[2024-04-28] MEDS ORDERED: OXYC1TAB23 PO (17:02)
[2024-04-28] MEDS ORDERED: IBUP-1022 PO (17:02)
[2024-04-28] MEDS ORDERED: PHENYLephrine 500MCG 5ML (100MCG/ML) SYRINGE As Ordered ONE (17:13)
[2024-04-28] MEDS ORDERED: ACETAMINOPHEN 1000MG 100ML IV BAG As Ordered ONE (17:14)
[2024-04-28] MEDS ORDERED: KETOROLAC 60MG 2ML VIAL As Ordered ONE (17:28)
[2024-04-28] MEDS ORDERED: SUGAMMADEX SODIUM 500 MG/5 ML VIAL (BRIDION) As Ordered ONE (17:29)
[2024-04-28] MEDS ORDERED: METOCLOPRAMIDE INJ 10MG/2ML VIAL As Ordered ONE (17:29)
[2024-04-28] MEDS ORDERED: HYDROmorphone HCL 2MG/ML 1ML VIAL As Ordered ONE (17:42)
[2024-04-28] MEDS ORDERED: ONDANSETRON 4MG 2ML VIAL IV PRN (19:30)
[2024-04-28] MEDS ORDERED: HYDROMORPHONE HCL 0.5 MG/ 0.5 ML SYRINGE IV PRN (19:30)
[2024-04-28] MEDS: LR 1,000 ML IV SCH ×2 (19:30→19:45)
[2024-04-28] MEDS ORDERED: METOCLOPRAMIDE INJ 10MG/2ML VIAL IV PRN (19:30)
[2024-04-28] MEDS ORDERED: fentaNYL 100 MCG/2 ML INJECTION IV PRN (19:30)
[2024-04-28] MEDS ORDERED: MEPERIDINE 25 MG/ML 1ML VIAL As Ordered ONE (19:54)
[2024-04-28] MEDS: MEPERIDINE 25 MG/ML 1ML VIAL IV PRN (19:57)
[2024-04-28] MEDS: oxyCODONE 5MG TAB PO PRN (20:27)
[2024-04-28 20:40] VITALS: BP 108/67; TEMP 97.7; O2SAT 98
[2024-04-28] MEDS: DOCUSATE SODIUM 100MG CAPSULE PO SCH (21:00)
[2024-04-28 21:10] VITALS: BP 108/61; TEMP 97.8; O2SAT 96
[2024-04-28 21:40] VITALS: BP 99/56; TEMP 97.6; O2SAT 96
[2024-04-28 22:40] VITALS: BP 101/61; TEMP 98.3; O2SAT 97
[2024-04-28 23:40] VITALS: BP 108/58; TEMP 98.5; O2SAT 97
[2024-04-29 00:40] VITALS: BP 109/56; TEMP 97.7; O2SAT 98
[2024-04-29] MEDS: PERCOCET 5MG/325MG TAB PO PRN (01:13)
[2024-04-29] MEDS: KETOROLAC 30 MG/ML 1ML VIAL IV PRN (01:14)
[2024-04-29 01:40] VITALS: BP 105/54; TEMP 97.2; O2SAT 96
[2024-04-29 04:00] VITALS: BP 109/50; TEMP 99.1; O2SAT 97
[2024-04-29 07:30] VITALS: BP 89/54; TEMP 98.8; O2SAT 98
[2024-04-29] MEDS ORDERED: COLA100C5 PO (08:44)
[2024-04-29] MEDS: ONDANSETRON 4MG 2ML VIAL IV PRN (10:13)
[2024-04-29] MEDS ORDERED: ONDA-282 PO (10:56)
[2024-04-29 12:12] VITALS: BP 102/57; TEMP 98.3; O2SAT 98
== END 2024-04-29 14:37 | disposition home or self-care (01) ==
LOC: M SDC 14:00 → M RR INP 14:01 → M PED 20:38
PROVIDERS: ADMIT Specialist; ATTEND Specialist
DX: N92.0 Excessive and frequent menstruation with regular cycle (principal); N73.6 Female pelvic peritoneal adhesions (postinfective); N80.03 Adenomyosis of the uterus
CPT/HCPCS: 36415; 58571; 85027; 86850; 86870; 86900; 86901; 88307; 96361; 96374; 96376; J0131; J0665; J0690; J1100; J1171; J1885; J2175; J2250; J2371; J2405; J2765; J3010; S2900

== ENCOUNTER → 2024-07-03 | Outpatient (CLI) | payer OTHER ==
[~2024-07-03] MED LIST changes: +COLA100C5 PO; +IBUP-1022 PO; -MORPHINE 2 MG/ML 1ML VIAL IV PRN; -fentaNYL 100 MCG/2 ML INJECTION IV PRN
== END ==
LOC: M WUC 08:58
PROVIDERS: ATTEND Registered Nurse
DX: J06.9 Acute upper respiratory infection, unspecified (principal)

== ENCOUNTER → 2025-03-28 | Outpatient (REF) | payer OTHER ==
[~2025-03-28] MED LIST changes: -IBUP-1022 PO; +IBUP600T42 PO
[2025-03-28 19:59] LABS: ALT/SGPT 16 U/L (7.0-40); AST/SGOT 20 U/L (<34); CALCIUM LEVEL 9.1 MG/DL (8.5-10.1); CARBON DIOXIDE LEVEL 27 MMOL/L (20-31); CHLORIDE LEVEL 106 MMOL/L (98-107); CHOLESTEROL LEVEL 172 MG/DL (<200); CHOLESTEROL RISK RATIO 2.86 (<5); CREATININE FOR GFR 0.62 MG/DL (0.55-1.30); GLOMERULAR FILTRATION RATE > 90.0 (>60); LDL CHOLESTEROL 98.0 MG/DL (<100); NON-HDL-C 112.0 MG/DL; POTASSIUM SERUM 3.7 MMOL/L (3.5-5.1); SODIUM LEVEL 138 MMOL/L (136-145); TRIGLYCERIDES LEVEL 70 MG/DL (<150)
[2025-03-28 20:00] LABS: IRON (FE) 63 UG/DL (50-170); PERCENT SATURATION 24.0 % (13.2-45.0)
== END ==
LOC: M LAB REF 09:39
PROVIDERS: ATTEND Nurse Practitioner Family
DX: F90.9 Attention-deficit hyperactivity disorder, unspecified type (principal)

== ENCOUNTER → 2025-04-16 | Outpatient (CLI) | payer OTHER | LOC: M RAD 14:08 | PROVIDERS: ATTEND Nurse Practitioner Family | DX: E04.0 Nontoxic diffuse goiter (principal) ==

== ENCOUNTER → 2025-05-04 | Outpatient (REF) | payer OTHER | LOC: M LAB REF 16:59 | PROVIDERS: ATTEND Nurse Practitioner Family | DX: J00 Acute nasopharyngitis [common cold] (principal) ==